=== PATIENT | female | born 1965 | race Caucasian/White ===

== ENCOUNTER 2016-05-16 11:03 | Inpatient (IN) | payer MEDICARE, MEDICAID ==
[~2016-05-16] VITALS: Ht 160 cm; Wt 57.8 kg
[~2016-05-16 11:03] MED LIST: FENT1PAT68 TD; FLUT16SP EA NOSTRIL; GABA-338 PO; LEVO75TA4 PO; METR500T PO; OMEP20CA10 PO; OXYC-541 PO; SERT50TA12 PO; TRAZ-170 PO
--- OUTSIDE RECORDS SUMMARY | 2016-05-16 11:08 | XMS REPORT | Continuity of Care Document ---
Author Author [facility] LIVE Organization [facility] LIVE Address Unknown Phone Unavailable Care Team Providers Care Electrical Tester Battery Name Role Phone HAMILTON GUZMÁN DO Primary Care Physician [phone] Insurance Providers Payer Name Policy Number Subscriber Name Relationship [facility] Community Plan [id number] Luis M Aragon 19 Self Advance Directives Directive Response Recorded Date/Time Advanced Directives Type None 08/29/13 4:00pm Ordered Resuscitation Status Full Code 06/19/13 10:41am Chief Complaint and Reason for Visit Chief Complaint SMALL BOWEL OBSTRUCTION Reason for Visit History of malignant neoplasm of colorectal region Small bowel obstruction History of malignant neoplasm of colorectal region Nonhealing surgical wound Colon cancer Small bowel obstruction Problems Medical Problems Problem Onset Date Status Abdominal Pain Epigastric Unknown Active UTI Unknown Active MEDICATION AFFECT Unknown Active UTI Unknown Active Chronic pelvic pain Unknown Active Chronic rectal pain Unknown Active UTI Unknown Active Acute confusion Unknown Active Dehydration Unknown Active Hyperthyroidism Unknown Active Urinary tract infection Unknown Active Pancreatitis Unknown Active Stomal bleeding Unknown Active UTI (lower urinary tract infection) Unknown Active Abdominal pain Unknown Active History of malignant neoplasm of colorectal region Unknown Active Small bowel obstruction Unknown Active History of malignant neoplasm of colorectal region Unknown Active Colon cancer 12/29/2013 Active Small bowel obstruction 12/29/2013 Active Surgical Problems Problem Onset Date Recorded Date/Time Status Pancreatitis Unknown 08/31/2013 2:05pm Active Constipation Unknown 08/31/2013 2:05pm Active Nonhealing surgical wound Unknown 12/27/2013 9:50am Active Medications Medication Dose Route Sig Days/Qty Instructions Order Date Discontinued Date Status Ibuprofen 200 Mg PO NEEDED 10/22/11 06/26/12 Discontinued Ciprofloxacin Hcl 500 Mg PO TWICE A DAY 12/08/11 06/26/12 Discontinued Hydrocodone Bit/Acetaminophen 1 Udtab PO NEEDED 06/26/12 Discontinued [lisinopril] 06/26/12 07/01/12 Discontinued [gabapentin] TWICE A DAY 06/26/12 07/01/12 Discontinued [prochlorperazine] 06/26/12 07/01/12 Discontinued Tramadol Hcl 50 Mg PO NEEDED 07/01/12 07/07/12 Discontinued Levofloxacin 500 Mg PO DAILY 07/01/12 07/07/12 Discontinued Lisinopril 20 Mg PO DAILY 07/01/12 07/27/12 Discontinued Metronidazole 500 Mg PO THREE TIMES A DAY TAKE FOR 14 DOSE (1ST DOSE TAKEN Wednesday07/03/12 ONE DOSE THAT DAY 07/07/12 07/27/12 Discontinued Hydrocodone Bit/Acetaminophen 1 Tab PO NEEDED 60 Qty 01/02/1304/21 Discontinued Hydrocodone Bit/Acetaminophen 1 Udtab PO EVERY 4 HOURS 04/21/1301/05 Discontinued Gabapentin 100 Mg PO TWICE A DAY 05/14/13 11/02/13 Discontinued Escitalopram Oxalate 10 Mg PO DAILY 05/14/13 08/29/13 Discontinued Ondansetron 4 Mg PO NEEDED 08/15/13 09/01/13 Discontinued Pantoprazole Sodium 20 Mg PO BEFORE BREAKFAST 08/19/13 09/01/13 Discontinued Ciprofloxacin Hcl 500 Mg PO TWICE A DAY 14 Qty 08/29/13 09/01/13 Discontinued Fentanyl 1 Patch TD Q 3 D 08/29/13 11/02/13 Discontinued Lisinopril 5 Mg PO DAILY 08/29/13 09/01/13 Discontinued Clonazepam 0.5 Tab PO TWICE A DAY take twice daily as needed 10/11/13 Active Sertraline HCl 1 Tab PO DAILY 10/18/13 Active Acetaminophen 2 Tab PO Every 6 Hours PRN PAIN 10/18/13 11/02/13 Discontinued Methimazole 5 Mg PO DAILY 10/18/13 11/02/13 Discontinued Ciprofloxacin 500 Mg PO TWICE A DAY 7 Days 10/18/13 11/02/13 Discontinued Hydrocodone/Acetaminophen 1-2 Tab PO Q4H PRN BREAKTHROUGH PAIN 30 Days 11/02/13 Active Ondansetron 4 Mg PO Q6H/0300,0900,1500,2100 PRN NAUSEA &/OR VOMITING 120 Qty 11/02/13 Active Pantoprazole Sodium 40 Mg PO DAILY 30 Qty Take 1 tablet, by mouth, 2 times a day before Breakfast and 11/02/13 Active Loperamide HCl 2 Mg PO Every 6 Hours PRN PRN ORDERS 30 Days 11/02/13 12/29/13 Discontinued Fentanyl 1 Patch TD Q3D 10 Qty 11/02/13 Active Gabapentin 300 Mg PO DAILY 11/20/13 Active Methimazole 60 Mg PO DAILY 12/19/13 Active Social History Social History Problem Response Recorded Date/Time Smoking Status Current every day smoker 08/29/2013 4:02pm When did patient START smoking? 1985 12/25/2013 11:54pm Chewing Tobacco Status No 08/29/2013 1:04pm Hx Substance Use No 12/25/2013 5:14pm Hx Alcohol Use No 12/25/2013 5:14pm Has the pt used tobacco in the last 12 months Yes 12/25/2013 11:54pm Query Response Start Date Stop Date Smoking Status Current every day smoker Hospital Discharge Instructions Instructions: Care Instructions: Reason for Hospitalization: bowel obstruction I was in the hospital because (patient own words): " I have a blocked bowel" Discharge Diet: regular Discharge Activity: Activity as Tolerated Follow Up Appointments: FOLLOW UP APPOINTMENT WITH WOUND CLINIC ON 01/02/14 AT 2:[address] NAIK Follow up appointment with Dr. Guzmán January 12, at 9:00. Follow up appointment with Dr. Jarrell January 08, at 9:30. Make appointment with Lab at [facility] for CBC with diff, CMP and Mg in one to two weeks before seeing Dr. Guzmán for follow up. Follow up appointment with Dr. Dudley with in the month. Patient Instructions: Return to care immediately if nausea, vomiting or abdominal pain No other tylenol while taking the [place] Condition at time of discharge: Good Plan of Care Discharge Date 12/29/13 3:35pm Disposition 01 DISCHARGED HOME, SELF-CARE Instructions/Education Provided DI for Small Bowel Obstruction Prescriptions See Medications Section Functional Status Query Response Date Recorded Physical Hygiene Self December 29, 2013 2:42pm Disabilities None August 29, 2013 3:16pm Devices Used Glasses December 29, 2013 2:42pm Dressing Self December 29, 2013 2:42pm Ambulation Self August 29, 2013 1:04pm Diet Self December 29, 2013 2:42pm Mental Status Alert August 29, 2013 3:16pm Disabilities None August 29, 2013 3:16pm Devices Used Glasses December 29, 2013 2:42pm Physical Hygiene Self December 29, 2013 2:42pm Dressing Self December 29, 2013 2:42pm Ambulation Self August 29, 2013 1:04pm Diet Self December 29, 2013 2:42pm Allergies, Adverse Reactions, Alerts Allergen Type Severity Reaction Status Last Updated No Known Allergies Active 10/10/13 Immunizations Name Given Type Hx Influenza Vaccination Y 11/2013 Historical Hx Pneumococcal Vaccination Y 2012 Historical Hx Influenza Vaccination Y 11/2013 Historical Vital Signs Acute Vital Signs Vital Response Date/Time Temperature (Fahrenheit) 97.3 deg F (96.8 - 99.1) Temperature (Calculated Celsius) 36.33737 degrees C (36.0 - 37.3) Temperature Source Oral Pulse Rate (adult) 65 bpm (60 - 100) Respiratory Rate 14 breaths/min (10 - 20) Height (Feet) 5 feet Height (Inches) 3.00 inches Height 5 ft 3 in Weight 125 lb Body Mass Index 22.0 kg/m^2 Results Test Source Date Result Interp. Ref. Range Comments Absolute Reticulocyte Count October 25, 2013 1:45pm 0.0382 T/MM3 N 0.0300-0.0900 Activated Partial Thromboplast Time December 26, 2013 5:57am 36.5 SEC H 24-36 Alanine Aminotransferase (ALT/SGPT) December 29, 2013 5:01am 22 U/L N 9- 52 Albumin December 29, 2013 5:01am 2.5 G/DL L 3.5-5.0 Albumin/Globulin Ratio December 29, 2013 5:01am 0.8 RATIO L 1.1-2.2 Alcohol, Quantitative August 29, 2013 6:30pm <10 MG/DL - Alkaline Phosphatase December 29, 2013 5:01am 120 U/L N 38-126 Ammonia August 15, 2013 6:50pm < 9 UMOL/L L 9-33 COMMENT DO ON BLOOD DRAWN TODAYCOMMENT * & TSH RECEPTOR ANTIBODIES * Amylase Level December 25, 2013 6:02pm 33 U/L N 30-110 Anion Gap December 29, 2013 5:01am 5 MEQ/L N 5-15 Anisocytosis October 30, 2013 4:44am 1+ - Arterial Blood Base Excess August 29, 2013 6:25pm -5.2 MMOL/L L -2.0-2.0 Arterial Blood HCO3 August 29, 2013 6:25pm 20 MEQ/L L 22-26 Arterial Blood Lactic Acid July 27, 2012 4:28pm 0.9 MMOL/L N 0.5-0.9 Arterial Blood Oxygen Saturation August 29, 2013 6:25pm 96.0 % N 95.0- 98.0 Arterial Blood Partial Pressure CO2 August 29, 2013 6:25pm 37 MMHG N 34- 45 Arterial Blood Total CO2 August 29, 2013 6:25pm 21.1 MEQ/L L 23-27 Arterial Blood pH August 29, 2013 6:25pm 7.340 L 7.350-7.450 Arterial Blood pO2 at Patient Temp August 29, 2013 6:25pm 90 MMHG N 80- 100 Aspartate Amino Transf (AST/SGOT) December 29, 2013 5:01am 10 U/L L 14- 36 BUN/Creatinine Ratio December 29, 2013 5:01am 7 RATIO N 6-26 Band Neutrophils # December 25, 2013 6:02pm 1.1 T/MM3 - Band Neutrophils % December 25, 2013 6:02pm 9.0 % H 0-6 Basophils # (Auto) December 29, 2013 5:01am 0.0 T/MM3 N 0-0.2 Basophils # (Manual) October 26, 2013 8:10pm 0.0 T/MM3 N 0-0.2 Basophils % (Manual) October 26, 2013 8:10pm 0.0 % N 0-2 Basophils (%) (Auto) December 29, 2013 5:01am 0.8 % N 0-2 Beta HCG, Quantitative December 08, 2011 8:40pm < 2.39 UIU/ML - NON- INDIVIDUALS=0 - 4.83;SAMPLES BETWEEN 4.83 - 25 SHOULD BE RE-TESTED AFTER 48 HOURS IF IS SUSPECTED; GESTATION 1-10 WEEKS: 45-256,380; 11-15 WEEKS: 11,556-265,380; 16-22 WEEKS: 27,023-111,954; 23-40 WEEKS: 24,031-101,566 Blood Smear Pathologist Review October 25, 2013 1:45pm Sent for review - Blood Urea Nitrogen December 29, 2013 5:01am 6.0 MG/DL L 7-17 C-Reactive Protein December 08, 2013 12:01pm 34.4 MG/L H 0-9 C. difficile Toxin B Gene (PCR) October 28, 2013 11:25pm Positive H - Has specimen been collected/obtained? Y CA 125 Antigen February 20, 2013 3:04pm 11.6 U/ML N 0-35 Calcium Level December 29, 2013 5:01am 8.4 MG/DL N 8.4-10.2 Calculated Osmolality December 29, 2013 5:01am 263 MOSM/KG N 261-280 Carbon Dioxide Level December 29, 2013 5:01am 28 MEQ/L N 22-30 Carcinoembryonic Antigen October 25, 2013 9:35am 2.26 UG/L DN 0-3.0 Chemistry Specimen Hemolysis December 29, 2013 5:01am < 15 0-25 0-25 : No Hemolysis.26-70: Slight Hemolysis - can falsely elevate K and Urine Protein. 71-285: Moderate Hemolysis - can falsely elevate K, Troponin I, CA 19-9, PTH, CSF GLucose, and Urine Protein, and can falsely decrease Phenytoin. 286-999: Gross Hemolysis - can falsely elevate K, Troponin I, CA 19-9, PTH, CSF Glucose, and Urine Protine, and can falsely decrease Phenytoin. Recommend specimen recollection. Chlamydia trachomatis Amplified DNA October 22, 2011 9:38pm Ref lab rpt scanned - --- 10/26/11 0723 ---CHLAMDNA previously reported as: SENT OUT Chloride Level December 29, 2013 5:01am 105 MEQ/L N 98-107 Cholesterol Level August 16, 2013 4:35am 80 MG/DL L 132-199 Cholesterol/HDL Ratio August 16, 2013 4:35am 4.0 RATIO N 0-4.0 Coagulation Factor VII October 26, 2013 9:40am 64 % L - Factor VII performed at [facility], [address], [place] [address]Vcnqzzv Director Marlena Cottrell MD Conjugated Bilirubin July 22, 2012 12:50am 0.00 MG/DL N 0.00-0.30 Cortisol AM Sample August 16, 2013 4:35am 13.9 UG/DL 1 - Before 10:00am : 4.46-22.7 ug/dL;After 5:00pm: 1.7-14.1 ug/dL Cortisol Baseline June 21, 2013 8:58am 24.6 UG/DL - COMMENT Draw prior to cotrosyn administration Cortisol Response to Stim 1 Hour June 21, 2013 9:55am 42.5 UG/DL - COMMENT Draw 60 min post cortrosyn administration Cortisol Response to Stim 1/2 Hour June 21, 2013 9:25am 33.0 UG/DL - COMMENT Draw 30 min post cortrosyn Creatine Kinase MB July 01, 2012 3:30pm < 0.2 NG/ML 0-3.4 Creatinine December 29, 2013 5:01am 0.9 MG/DL N 0.7-1.2 D-Dimer October 27, 2013 4:30am 758 NG/ML H 0-224 <224 NG/ML= PRESUMPTIVE NEGATIVE FOR PE OR DVT>224 NG/ML=ADDITIONAL EVALUATION FOR PE OR DVT RECOMMENDED Eosinophils # (Auto) December 29, 2013 5:01am 0.4 T/MM3 N 0-0.5 Eosinophils # (Manual) December 14, 2013 8:55am 0.1 T/MM3 N 0-0.5 Eosinophils % (Manual) December 14, 2013 8:55am 2.0 % N 0-4 Eosinophils (%) (Auto) December 29, 2013 5:01am 8.9 % H 0-4 Erythrocyte Sedimentation Rate November 02, 2013 4:37am 78 MM/HR H 0- 20 Ferritin August 15, 2013 6:50pm 250 NG/ML H 6-137 COMMENT DO ON BLOOD DRAWN TODAYCOMMENT * & TSH RECEPTOR ANTIBODIES * Fibrin Degradation Products October 27, 2013 4:30am Negative UG/ML - Ordering r/o VTE No Fibrinogen October 27, 2013 4:30am 461 MG/DL H 135-357 Ordering r/o VTE No Free Thyroxine August 15, 2013 6:50pm 3.61 NG/DL H 0.78-2.19 COMMENT DO ON BLOOD DRAWN TODAYCOMMENT * & TSH RECEPTOR ANTIBODIES * Free Triiodothyronine August 15, 2013 6:50pm 6.84 PG/ML H 2.77-5.27 COMMENT DO ON BLOOD DRAWN TODAYCOMMENT * & TSH RECEPTOR ANTIBODIES * Globulin December 29, 2013 5:01am 3.2 G/DL N 2.4-3.6 Glomerular Filtration Rate Calc December 29, 2013 5:01am 67 - Glucometer June 20, 2013 6:29pm 108 mg/dL N 65-110 Glucose Level December 29, 2013 5:01am 75 MG/DL N 65-110 HDL Cholesterol Direct August 16, 2013 4:35am 20 MG/DL L 40-60 Haptoglobin October 25, 2013 1:45pm 329 mg/dL H - Haptoglobin performed at [facility], [address], [place], [place] [address]Crzbkrp Director Marlena Cottrell MD Hematocrit December 29, 2013 5:01am 33.4 % L 36-46 Hemoglobin December 29, 2013 5:01am 10.4 GM/DL L 12-16 Hemoglobin A1c June 22, 2013 4:48am 4.9 % L 6-7 <6.0 NON-DIABETIC RANGE6.0-7.0 ADA THERAPEUTIC RANGE >7.0 ACTION SUGGESTED Hypochromasia October 26, 2013 4:52am 1+ - Icterus Index December 29, 2013 5:01am < 2 0-7 Immature Granulocyte # (Auto) December 29, 2013 5:01am 0.00 T/MM3 N 0.00 -0.03 Immature Granulocyte % (Auto) December 29, 2013 5:01am 0.0 % N 0.0-0.5 Immature Reticulocyte Fraction October 25, 2013 1:45pm 12.7 % N 3.3- 14.5 Immunoglobulin G August 01, 2012 4:58am 860.82 MG/DL N 700-1600 COMMENT do on blood already drawn Iron Level August 15, 2013 6:50pm 15 UG/DL L 37-170 COMMENT DO ON BLOOD DRAWN TODAYCOMMENT * & TSH RECEPTOR ANTIBODIES * LDL Cholesterol, Calculated August 16, 2013 4:35am 45.2 L 66-159 Lab Scanned Report December 25, 2013 2:12pm LAB TEST FORM REQUEST [id number] - Lactate Dehydrogenase December 25, 2013 9:30am 292 U/L L 313-618 Large Platelets April 21, 2013 9:00am Few - Lipase December 25, 2013 6:02pm 28 U/L N 23-300 Lymphocytes # (Auto) December 29, 2013 5:01am 1.3 T/MM3 N 1-4.8 Lymphocytes # (Manual) December 25, 2013 6:02pm 0.5 T/MM3 L 1-4.8 Lymphocytes % (Manual) December 25, 2013 6:02pm 4.0 % L 23-45 Lymphocytes (%) (Auto) December 29, 2013 5:01am 26.8 % N 23-45 Magnesium Level December 29, 2013 5:01am 1.7 MG/DL N 1.6-2.3 Mean Corpuscular Hemoglobin December 29, 2013 5:01am 29.2 UUG N 26-34 Mean Corpuscular Hemoglobin Concent December 29, 2013 5:01am 31.1 GM/DL N 31-37 Mean Corpuscular Volume December 29, 2013 5:01am 93.8 UM3 N 80-100 Mean Platelet Volume December 29, 2013 5:01am 10.4 UM3 N 9.4-12.4 Monocytes # (Auto) December 29, 2013 5:01am 0.5 T/MM3 N 0-0.8 Monocytes # (Manual) December 14, 2013 8:55am 0.4 T/MM3 N 0-0.8 Monocytes % (Manual) December 14, 2013 8:55am 5.0 % N 0-9.0 Monocytes (%) (Auto) December 29, 2013 5:01am 10.4 % H 0-9.0 Neutrophils # (Auto) December 29, 2013 5:01am 2.6 T/MM3 N 1.8-7.7 Neutrophils # (Manual) December 25, 2013 6:02pm 10.7 T/MM3 H 1.8-7.7 Neutrophils % (Manual) December 25, 2013 6:02pm 87.0 % H 33-66 Neutrophils (%) (Auto) December 29, 2013 5:01am 53.1 % N 33-66 Nucleated Red Blood Cells August 17, 2013 6:04am 1 - Ovalocytes August 17, 2013 6:04am 1+ - Oxygen Delivery Method (LAB) August 29, 2013 6:25pm Room air - Percent Iron Saturation August 15, 2013 6:50pm 10 % N 9-55 COMMENT DO ON BLOOD DRAWN TODAYCOMMENT * & TSH RECEPTOR ANTIBODIES * Percent Reticulocyte Count October 25, 2013 1:45pm 1.8 % H 0.6-1.7 Phosphorus Level December 29, 2013 5:01am 3.1 MG/DL N 2.5-4.5 Platelet Count December 29, 2013 5:01am 321 T/MM3 N 130-400 Platelet Evaluation (Diff) May 31, 2013 8:30am Few - Poikilocytosis October 26, 2013 4:52am 1+ - Potassium Level December 29, 2013 5:01am 4.1 MEQ/L DN 3.6-5 Procalcitonin December 25, 2013 9:56pm 0.07 NG/ML - PCT </=0.5 ng/mL - sepsis not likely;PCT >0.5 and </=2 ng/mL - sepsis possible; PCT >2 ng/mL - sepsis likely; PCT >/=10 ng/mL - systemic inflammatory response - sepsis or septic shock highly indicated. Prothromb Time International Ratio December 26, 2013 5:57am 1.12 H 0.81- 1.09 THERAPUTIC RANGE=2.00-3.00 FOR ANTI-THROMBOSIS THERAPUTIC RANGE=2.50- 3.50 FOR IMPLANTED VALVE RDW Standard Deviation December 29, 2013 5:01am 54.4 FL H 36.9-50.2 Random Cortisol August 15, 2013 6:50pm 13.2 UG/DL - Before 10:00am: 4.46-22.7 ug/dL;After 5:00pm: 1.7-14.1 ug/dL Reactive Lymphocytes # October 30, 2013 4:44am 0.6 T/MM3 H 0-0 Reactive Lymphocytes % October 30, 2013 4:44am 5.0 % H 0-0 Red Blood Count December 29, 2013 5:01am 3.56 M/MM3 L 4.00-5.20 Reticulocyte Hgb Content (CHr) October 25, 2013 1:45pm 23.5 PG L 30.8- 36.6 Schistocytes May 31, 2013 8:30am 1+ - Sodium Level December 29, 2013 5:01am 138 MEQ/L N 134-144 Stone Constituent 1 December 19, 2013 10:28am See below - 90% Calcium phosphate (apatite) Stone Constituent 2 December 19, 2013 10:28am See below - 10% Calcium carbonateTest Performed by: [address] [id number] Body Technician/Painter: Lonny Franz M.D. Stone Analysis performed at [facility], [address] [place] [address] Environmental Science Program Director Bob Cottrell MD Stone Source December 19, 2013 10:28am Kidney - Corrected result; previously reported as kidney on 12/19/13 at 10:56 by Stone Weight October 31, 2013 8:30am 0.039 g - COMMENT BLADDER STONE Stool Occult Blood October 25, 2013 3:00pm Negative - Has specimen been collected/obtained? YCOMMENT x3 specimans, call if positive Stool for White Cells October 25, 2013 3:00pm Positive - Has specimen been collected/obtained? Y Tear Drop Cells May 10, 2013 8:50am 1+ - Thyroglobulin Antibody Screen August 15, 2013 6:50pm <3 IU/mL - Thyroglobulin Ab screen performed at [facility], [address] [place] [address] Environmental Science Program Director Marlena Cottrell MD Thyroid Stimulating Hormone (TSH) December 26, 2013 5:57am 2.05 MIU/L DN 0.47-4.68 Thyroperoxidase Antibody August 15, 2013 11:10pm <3 IU/mL - Thyroperoxidase Ab (TPO) performed at [facility], [address] [place] [address] Environmental Science Program Director Marlena Cottrell MD Thyroxine (T4) August 15, 2013 6:50pm 10.9 ug/dL - Thyroxine (T4) performed at [facility], [address] [place] [address] Environmental Science Program Director Marlena Cottrell MD Total Bilirubin December 29, 2013 5:01am 0.20 MG/DL N 0.20-1.30 Total Creatine Kinase July 01, 2012 3:30pm < 20 U/L L 30-135 Total Iron Binding Capacity August 15, 2013 6:50pm 148 UG/DL L 261-497 COMMENT DO ON BLOOD DRAWN TODAYCOMMENT * & TSH RECEPTOR ANTIBODIES * Total Protein December 29, 2013 5:01am 5.7 G/DL L 6.3-8.2 Triglycerides Level August 29, 2013 6:30pm 143 MG/DL H 35-135 Triiodothyonine (T3) (JOSE MIGUEL) August 15, 2013 6:50pm 92 ng/dL - T3 Total performed at [facility], [address], [place] [address]Medical Director Marlena Cottrell MD Troponin I October 25, 2013 1:45pm < 0.012 ng/ml 0-0.12 Turbidity December 29, 2013 5:01am < 20 0-20 Unconjugated Bilirubin July 22, 2012 12:50am 0.10 MG/DL N 0.00-1.10 Urine Amorphous Urates November 30, 2011 3:00pm Many - Has specimen been collected/obtained? Y Urine Bacteria December 25, 2013 6:25pm 1+ H - Has specimen been collected/obtained? Y Urine Bilirubin December 25, 2013 6:25pm Negative - Has specimen been collected/obtained? Y Urine Blood December 25, 2013 6:25pm 1+ H - Has specimen been collected /obtained? Y Urine Collection Type December 25, 2013 6:25pm Voided-not cc-midstr - Has specimen been collected/obtained? Y Urine Color December 25, 2013 6:25pm Yellow - Has specimen been collected/obtained? Y Urine Culture Indicated December 08, 2013 12:02pm Cult reflexed &setup - Urine Eosinophils October 30, 2013 1:51pm 0 % - Eosinophil Count, Urine performed at [facility], [facility] [place] [address] Environmental Science Program Director Marlena Cottrell MD Urine Glucose (UA) December 25, 2013 6:25pm Negative - Has specimen been collected/obtained? Y Urine Ketones December 25, 2013 6:25pm Negative - Has specimen been collected/obtained? Y Urine Leukocyte Esterase December 25, 2013 6:25pm 2+ H - Has specimen been collected/obtained? Y Urine Nitrite December 25, 2013 6:25pm Negative - Has specimen been collected/obtained? Y Urine Osmolality October 30, 2013 1:51pm 366 mOsm/kg - Osmolality, Urine performed at [facility], [address] [place] [address] Environmental Science Program Director Marlena Cottrell MD Urine Protein December 25, 2013 6:25pm Negative - Has specimen been collected/obtained? Y Urine RBC December 25, 2013 6:25pm 1-3 /HPF - Has specimen been collected/obtained? Y Urine Random Creatinine October 30, 2013 1:51pm 19.7 MG/DL - Has specimen been collected/obtained? Y Urine Random Sodium October 30, 2013 1:51pm 166 MEQ/L H 30-90 Has specimen been collected/obtained? Y Urine Specific [place] December 25, 2013 6:25pm 1.015 - Has specimen been collected/obtained? Y Urine Squamous Epithelial Cells December 08, 2013 12:02pm 0-5 - Urine Transitional Epithelial Cells August 29, 2013 6:30am 3-5 /HPF - Has specimen been collected/obtained? Y Urine Turbidity December 25, 2013 6:25pm Clear - Has specimen been collected/obtained? Y Urine Urobilinogen December 25, 2013 6:25pm 0.2 EU/DL - Has specimen been collected/obtained? Y Urine WBC December 25, 2013 6:25pm 5-10 /HPF H - Has specimen been collected/obtained? Y Urine WBC Clumps August 29, 2013 6:30am None seen - Has specimen been collected/obtained? Y Urine Yeast October 30, 2013 1:51pm 1+ H - COMMENT please do urine microscopy.Has specimen been collected/obtained? Y Urine pH December 25, 2013 6:25pm 6.5 - Has specimen been collected/ obtained? Y VLDL Cholesterol August 16, 2013 4:35am 14.8 MG/DL N 0-28 Vancomycin Level Trough October 31, 2013 8:51am 11.71 UG/ML L 15-20 Venous Blood Lactate December 27, 2013 5:38am 1.0 MMOL/L N 0.6-2.2 White Blood Count December 29, 2013 5:01am 4.8 T/MM3 N 4.5-11.0 Blood Culture Catheter/Port Blood December 25, 2013 11:10pm NO GROWTH AFTER 72 HOURS Gram Stain Drainage-Surgical Wound December 08, 2011 9:00pm Gram Stain Rectum November 22, 2013 12:25pm Gram Stain Cervix October 22, 2011 9:25pm LORAINE Preparation Other December 05, 2013 11:30am Ova and Parasites Stool October 25, 2013 3:00pm Gram Stain Bladder October 31, 2013 8:04am Urine Culture Urine, Clean Catch-Midstream December 26, 2013 2:41pm Gram Positive Organism Gram Stain Catheter (Line) Site December 03, 2011 5:55pm Name: LUIS M ARAGON Unit #: [id number] : [id number] Sex: F Loc / Svc: MED DOS: 12/25/13 Signed Report #: [id number] DIAGNOSTIC IMAGING REPORT TYPE OF EXAM: CHEST 1 VIEW Dictated By: SASCHA BRENNER MD INDICATION: ITS.REASON: placement of NG tube COMPARISON: none. CHEST 1 VIEW: There is a right port catheter. Evidence of an NG tube. The tip is difficult to image, but appears to be near the GE junction. Normal heart size. No evidence of lung infiltrate. IMPRESSION: NG tip appears to be at the GE junction. . Procedures Procedure Status Date Provider(s) RPR S/N/AX/GEN/TRNK 2.5CM/< completed 10/10/13 DUSTIN MILES MD BLOOD TRANSFUSION SERVICE completed 10/25/13 HAMILTON GUZMÁN DO CYSTOSCOPY AND TREATMENT completed 10/25/13 REYNA PATE MD CYSTOSCOPY & URETER CATHETER completed 10/25/13 REYNA PATE MD CYSTOSCOPY AND TREATMENT completed 10/25/13 REYNA PATE MD CYSTOSCOPY AND TREATMENT completed 12/05/13 REYNA PATE MD CYSTOSCOPY AND TREATMENT completed 12/05/13 REYNA PATE MD CYSTO/URETERO STRICTURE TX completed 12/05/13 REYNA PATE MD CYSTOSCOPY AND TREATMENT completed 12/19/13 REYNA PATE MD CYSTOURETERO W/STONE REMOVE completed 12/19/13 REYNA PATE MD Encounters Encounter Location Date/Time Discharged Inpatient [facility] 12/25/13 9:56pm Registered [facility] 12/25/13 9:39am Registered [facility] 12/12/13 1:27pm Registered [facility] 12/08/13 12:20pm Registered [facility] 12/08/13 11:48am Registered [facility] 12/06/13 10:08am Registered [facility] 12/04/13 11:20am Registered [facility] 12/01/13 9:33am Registered [facility] 11/28/13 1:25pm Registered [facility] 11/23/13 8:34am Registered [facility] 11/22/13 12:39pm Registered [facility] 11/22/13 12:24pm Registered Clinic [facility] 11/17/13 10:26am Registered Clinic [facility] 11/15/13 1:39pm Discharged Recurring [facility] 11/14/13 8:42am Registered Clinic [facility] 11/08/13 4:28pm Registered Clinic [facility] 11/08/13 9:01am Registered Clinic [facility] 11/07/13 10:27am Discharged Inpatient [facility] 10/25/13 12:11pm Departed Emergency Room [facility] 10/18/13 11:25am Departed Emergency Room [facility] 10/10/13 8:36pm Recent Diagnosis History of malignant neoplasm of colorectal region Small bowel obstruction History of malignant neoplasm of colorectal region Colon cancer Small bowel obstruction
--- OUTSIDE RECORDS SUMMARY | 2016-05-16 11:08 | XMS REPORT | Continuity of Care Document ---
Author Author [facility] Organization [facility] Address Unknown Phone Unavailable Care Team Providers Care Mash Grinder Name Role Phone HAMILTON RECINOS DO Primary Care Physician [phone] Insurance Providers Payer Name Policy Number Subscriber Name Relationship [employer] [facility] [employer] Plan [id number] Luis M Aragon 19 Self Advance Directives Directive Response Recorded Date/Time Advanced Directives Type None 08/15/13 10:08pm Ordered Resuscitation Status Full Code 06/19/13 10:41am Problems Medical Problems Problem Onset Date Status Abdominal Pain Epigastric Unknown Active UTI Unknown Active MEDICATION AFFECT Unknown Active UTI Unknown Active Chronic pelvic pain Unknown Active Chronic rectal pain Unknown Active UTI Unknown Active Acute confusion Unknown Active Dehydration Unknown Active Hyperthyroidism Unknown Active Medications Medication Dose Route Sig Days/Qty [...] Bit/Acetaminophen 1 Udtab PO EVERY 4 HOURS 04/21/13 Active Fentanyl 1 Patch TD Q72H 04/21/13 Active Gabapentin 100 Mg PO TWICE A DAY 05/14/13 Active Escitalopram Oxalate 10 Mg PO DAILY 05/14/13 Active Fentanyl 1 Patch TD Q3D 08/15/13 Active Cyclobenzaprine Hcl 10 Mg PO NEEDED 08/15/13 Active Ondansetron 4 Mg PO NEEDED 08/15/13 Active Pantoprazole Sodium 20 Mg PO BEFORE BREAKFAST 08/19/13 Active Social History Social History Problem Response Recorded Date/Time Smoking Status Former smoker 08/15/2013 10:09pm Chewing Tobacco Status No 08/15/2013 7:12pm Hx Substance Use No 08/15/2013 7:12pm Hx Alcohol Use No 08/15/2013 7:12pm Has the pt used tobacco in the last 12 months Yes 08/15/2013 10:09pm Query Response Start Date Stop Date Smoking Status Current every day smoker Hospital Discharge Instructions Instructions: Care Instructions: Reason for Hospitalization: DEHYDRATION/ACUTE CONFUSION I was in the hospital because (patient own words): I WAS SICK Discharge Diet: REGULAR Discharge Activity: ACTIVITY TOLERATED Follow Up Appointments: FOLLOW UP APPOINTMENT WITH DR. RECINOS ON WEDNESDAY [phone] MAR IN 2 MONTHS WITH TSH DRAWN THE WEEK BEFORE AND SENT TO HIM FOLLOW UP APPOINTMENT WITH DR. ROJAS WITH IN THE NEXT WEEK. FOLLOW APPOINTMENT WITH DR. PATE THIS NEXT WEEK WELL. Patient Instructions: CALL OR COME TO EMERGENCY DEPARTMENT IF CONFUSED OR SYMPTOMS OCCUR OR HALLUCINATIONS. CALL IF DIARRHEA OR URINARY SYMPTOMS RETURN. Notify Physician If: ANY SYMPTOMS RETURN Condition at time of discharge: Good Care Plan Discharge Patient: Goal: Pain is contolled Patient Instructions: see patient instructions Discharge Patient: Goal: Understand discharge plan Patient Instructions: see patient instructions Room Condition at time of discharge: Good Care Plan Discharge Patient: Goal: Understand discharge plan Patient Instructions: see patient instructions Problem: see problem list Plan of Care Discharge Date 08/19/13 12:16pm Instructions/Education Provided DI for Altered Mental Status Prescriptions See Medications Section Functional Status Query Response Date Recorded Physical Hygiene Self August 19, 2013 11:34am Disabilities None August 19, 2013 11:34am Ambulation Self August 19, 2013 11:34am Mental Status Alert Oriented August 19, 2013 11:34am Disabilities None August 19, 2013 11:34am Physical Hygiene Self August 19, 2013 11:34am Ambulation Self August 19, 2013 11:34am Allergies, Adverse Reactions, Alerts Allergen Type Severity Reaction Status Last Updated No Known Allergies Active 04/21/13 Immunizations Name Given Type Hx Influenza Vaccination Y Jan Historical Hx Pneumococcal Vaccination Y Jan Historical Hx Influenza Vaccination Y Jan Historical Vital Signs Acute Vital Signs Vital Response Date/Time Temperature (Fahrenheit) 97.8 deg F (96.8 - 99.1) Temperature (Calculated Celsius) 36.03824 degrees C (36.0 - 37.3) Temperature Source Oral Pulse Rate (adult) 84 bpm (60 - 100) Respiratory Rate 16 breaths/min (10 - 20) Results Test Source Date Result Interp. Ref. Range Comments Absolute Reticulocyte Count August 15, 2013 6:50pm 0.0229 T/MM3 L 0.0300- 0.0900 Activated Partial Thromboplast Time August 15, 2013 6:50pm 41.1 SEC H 24- 36 Alanine Aminotransferase (ALT/SGPT) August 23, 2013 8:28am 20 U/L N 9-52 Albumin August 23, 2013 8:28am 2.8 G/DL L 3.5-5.0 Albumin/Globulin Ratio August 23, 2013 8:28am 0.7 RATIO L 1.1-2.2 Alkaline Phosphatase August 23, 2013 8:28am 254 U/L H 38-126 Ammonia August 15, 2013 6:50pm < 9 UMOL/L L 9-33 COMMENT DO ON BLOOD DRAWN TODAYCOMMENT * & TSH RECEPTOR ANTIBODIES * Amylase Level November 08, 2012 6:50pm 89 U/L N 30-110 Anion Gap August 23, 2013 8:28am 10 MEQ/L N 5-15 Anisocytosis August 21, 2013 8:50am 1+ - Aspartate Amino Transf (AST/SGOT) August 23, 2013 8:28am 18 U/L N 14-36 BUN/Creatinine Ratio August 23, 2013 8:28am 13 RATIO N 6-26 Band Neutrophils # August 21, 2013 8:50am 0.1 T/MM3 - Band Neutrophils % August 21, 2013 8:50am 1.0 % N 0-6 Basophils # (Auto) August 23, 2013 8:28am 0.0 T/MM3 N 0-0.2 Basophils # (Manual) August 15, 2013 6:50pm 0.0 T/MM3 N 0-0.2 Basophils % (Manual) August 15, 2013 6:50pm 0.0 % N 0-2 Basophils (%) (Auto) August 23, 2013 8:28am 0.2 % N 0-2 Blood Smear Pathologist Review August 15, 2013 6:50pm Sent for review - COMMENT * AND THYROID PERAXIDOSE ANTIBODIES * Blood Urea Nitrogen August 23, 2013 8:28am 10.0 MG/DL N 7-17 C-Reactive Protein June 12, 2013 10:45am 9.9 MG/L H 0-9 CA 125 Antigen February 20, 2013 3:04pm 11.6 U/ML N 0-35 Calcium Level August 23, 2013 8:28am 8.9 MG/DL N 8.4-10.2 Calculated Osmolality August 23, 2013 8:28am 274 MOSM/KG N 261-280 Carbon Dioxide Level August 23, 2013 8:28am 27 MEQ/L N 22-30 Carcinoembryonic Antigen March 10, 2013 8:25am 5.90 UG/L H 0-3.0 Chloride Level August 23, 2013 8:28am 106 MEQ/L N 98-107 Cholesterol Level August 16, 2013 4:35am 80 MG/DL L 132-199 Cholesterol/HDL Ratio August 16, 2013 4:35am 4.0 RATIO N 0-4.0 Conjugated Bilirubin July 22, 2012 12:50am 0.00 [...] 2012 3:30pm < 0.2 NG/ML 0-3.4 Creatinine August 23, 2013 8:28am 0.8 MG/DL N 0.7-1.2 Eosinophils # (Auto) August 23, 2013 8:28am 0.2 T/MM3 N 0-0.5 Eosinophils # (Manual) August 21, 2013 8:50am 0.1 T/MM3 N 0-0.5 Eosinophils % (Manual) August 21, 2013 8:50am 1.0 % N 0-4 Eosinophils (%) (Auto) August 23, 2013 8:28am 2.7 % N 0-4 Erythrocyte Sedimentation Rate June 12, 2013 10:45am 64 MM/HR H 0-20 Ferritin August 15, 2013 6:50pm 250 NG/ML H 6-137 COMMENT DO ON BLOOD DRAWN TODAYCOMMENT * & TSH RECEPTOR ANTIBODIES * Free Thyroxine August 15, 2013 6:50pm 3.61 NG/DL H 0.78-2.19 COMMENT DO ON BLOOD DRAWN TODAYCOMMENT * & TSH RECEPTOR ANTIBODIES * Free Triiodothyronine August 15, 2013 6:50pm 6.84 PG/ML H 2.77-5.27 COMMENT DO ON BLOOD DRAWN TODAYCOMMENT * & TSH RECEPTOR ANTIBODIES * Globulin August 23, 2013 8:28am 4.0 G/DL H 2.4-3.6 Glucose Level August 23, 2013 8:28am 107 MG/DL N 65-110 Haptoglobin August 15, 2013 6:50pm 296 mg/dL H - Haptoglobin performed at [facility], [address] [facility], [place] [address] Director Marlena Cottrell MD Hematocrit August 23, 2013 8:28am 36.1 % N 36-46 Hemoglobin August 23, 2013 8:28am 11.6 GM/DL L 12-16 Hemoglobin A1c June 22, 2013 4:48am 4.9 % L 6-7 <6.0 NON-DIABETIC RANGE6.0-7.0 ADA THERAPEUTIC RANGE >7.0 ACTION SUGGESTED Human Chorionic Gonadotropin, Qual January 03, 2013 11:00am Negative - Hypochromasia August 21, 2013 8:50am 1+ - Immature Reticulocyte Fraction August 15, 2013 6:50pm 12.6 % N 3.3-14.5 Immunoglobulin G August 01, 2012 4:58am 860.82 MG/DL N 700-1600 COMMENT do on blood already drawn Iron Level August 15, 2013 6:50pm 15 UG/DL L 37-170 COMMENT DO ON BLOOD DRAWN TODAYCOMMENT * & TSH RECEPTOR ANTIBODIES * LDL Cholesterol, Calculated August 16, 2013 4:35am 45.2 L 66-159 Lactate Dehydrogenase August 23, 2013 8:28am 265 U/L L 313-618 Large Platelets April 21, 2013 9:00am Few - Lipase April 01, 2013 7:51pm 127 U/L N 23-300 Lymphocytes # (Auto) August 23, 2013 8:28am 0.7 T/MM3 L 1-4.8 Lymphocytes # (Manual) August 21, 2013 8:50am 1.1 T/MM3 N 1-4.8 Lymphocytes % (Manual) August 21, 2013 8:50am 18.0 % L 23-45 Lymphocytes (%) (Auto) August 23, 2013 8:28am 11.0 % L 23-45 Magnesium Level August 23, 2013 8:28am 1.3 MG/DL L 1.6-2.3 Mean Corpuscular Hemoglobin August 23, 2013 8:28am 28.4 UUG N 26-34 Mean Corpuscular Hemoglobin Concent August 23, 2013 8:28am 32.1 GM/DL N 31 -37 Mean Corpuscular Volume August 23, 2013 8:28am 88.5 UM3 N 80-100 Mean Platelet Volume August 23, 2013 8:28am 9.4 UM3 N 9.4-12.4 Monocytes # (Auto) August 23, 2013 8:28am 0.5 T/MM3 N 0-0.8 Monocytes # (Manual) August 21, 2013 8:50am 0.4 T/MM3 N 0-0.8 Monocytes % (Manual) August 21, 2013 8:50am 6.0 % N 0-9.0 Monocytes (%) (Auto) August 23, 2013 8:28am 7.0 % N 0-9.0 Neutrophils # (Auto) August 23, 2013 8:28am 5.2 T/MM3 N 1.8-7.7 Neutrophils # (Manual) August 21, 2013 8:50am 4.4 T/MM3 N 1.8-7.7 Neutrophils % (Manual) August 21, 2013 8:50am 74.0 % H 33-66 Neutrophils (%) (Auto) August 23, 2013 8:28am 78.9 % H 33-66 Nucleated Red Blood Cells August 17, 2013 6:04am 1 - Ovalocytes August 17, 2013 6:04am 1+ - Percent Iron Saturation August 15, 2013 6:50pm 10 % N 9-55 COMMENT DO ON BLOOD DRAWN TODAYCOMMENT * & TSH RECEPTOR ANTIBODIES * Percent Reticulocyte Count August 15, 2013 6:50pm 0.9 % N 0.6-1.7 Phosphorus Level June 21, 2013 4:35am 4.1 MG/DL N 2.5-4.5 Platelet Count August 23, 2013 8:28am 447 T/MM3 H 130-400 Poikilocytosis August 17, 2013 6:04am 1+ - Potassium Level August 23, 2013 8:28am 3.6 MEQ/L N 3.6-5 Prothromb Time International Ratio August 15, 2013 6:50pm 1.66 H 0.81- 1.09 THERAPUTIC RANGE=2.00-3.00 FOR ANTI-THROMBOSIS THERAPUTIC RANGE=2.50- 3.50 FOR IMPLANTED VALVE RDW Standard Deviation August 23, 2013 8:28am 51.1 FL H 36.9-50.2 Random Cortisol August 15, 2013 6:50pm 13.2 UG/DL - Before 10:00am: 4.46-22.7 ug/dL;After 5:00pm: 1.7-14.1 ug/dL Red Blood Count August 23, 2013 8:28am 4.08 M/MM3 N 4.00-5.20 Reticulocyte Hgb Content (CHr) August 15, 2013 6:50pm 32.0 PG N 30.8-36.6 Schistocytes May 31, 2013 8:30am 1+ - Sodium Level August 23, 2013 8:28am 143 MEQ/L N 134-144 Stool Occult Blood August 18, 2013 6:30am Negative - Has specimen been collected/obtained? YCOMMENT #3 OF 3 Stool for White Cells August 21, 2013 12:55pm Negative - Tear Drop Cells May 10, 2013 8:50am 1+ - Thyroid Stimulating Hormone (TSH) August 15, 2013 6:50pm < 0.02 MIU/L L 0.47-4.68 COMMENT DO ON BLOOD DRAWN TODAYCOMMENT * & TSH RECEPTOR ANTIBODIES * Thyroxine (T4) August 15, 2013 6:50pm 10.9 ug/dL - Thyroxine (T4) performed at [facility], [facility] [place] [address] Aircraft Maintenance Manager Marlena Cottrell MD Total Bilirubin August 23, 2013 8:28am 0.10 MG/DL L 0.20-1.30 Total Creatine Kinase July 01, 2012 3:30pm < 20 U/L L 30-135 Total Iron Binding Capacity August 15, 2013 6:50pm 148 UG/DL L 261-497 COMMENT DO ON BLOOD DRAWN TODAYCOMMENT * & TSH RECEPTOR ANTIBODIES * Total Protein August 23, 2013 8:28am 6.8 G/DL N 6.3-8.2 Triglycerides Level August 16, 2013 4:35am 74 MG/DL N 35-135 Troponin I August 15, 2013 6:50pm < 0.012 ng/ml 0-0.12 Unconjugated Bilirubin July 22, 2012 12:50am 0.10 MG/DL N 0.00-1.10 Urine Amorphous Urates November 30, 2011 3:00pm Many - Has specimen been collected/obtained? Y Urine Bacteria August 21, 2013 12:52pm 1+ H - Urine Bilirubin August 21, 2013 12:52pm Negative - Urine Blood August 21, 2013 12:52pm 3+ H - Urine Collection Type August 21, 2013 12:52pm Voided-not cc-midstr - Urine Color August 21, 2013 12:52pm Yellow - Urine Culture Indicated August 15, 2013 8:00pm Cult reflexed &setup - Has specimen been collected/obtained? Y Urine Glucose (UA) August 21, 2013 12:52pm Negative - Urine Ketones August 21, 2013 12:52pm Negative - Urine Leukocyte Esterase August 21, 2013 12:52pm 3+ H - Urine Nitrite August 21, 2013 12:52pm Negative - Urine Osmolality August 15, 2013 8:00pm 114 mOsm/kg - Osmolality, Urine performed at [facility], [address] [place] [address] Aircraft Maintenance Manager Marlena Cottrell MD Urine Protein August 21, 2013 12:52pm 2+ H - Urine RBC August 21, 2013 12:52pm 50-200 /HPF H - Urine Random Creatinine August 15, 2013 8:00pm 20.9 MG/DL - Has specimen been collected/obtained? Y Urine Random Sodium August 15, 2013 8:00pm 18 MEQ/L L 30-90 Has specimen been collected/obtained? Y Urine Specific [place] August 21, 2013 12:52pm 1.025 - Urine Squamous Epithelial Cells August 21, 2013 12:52pm 0-5 - Urine Turbidity August 21, 2013 12:52pm Sl cloudy - Urine Urobilinogen August 21, 2013 12:52pm 0.2 EU/DL - Urine WBC August 21, 2013 12:52pm 50-200 /HPF H - Urine WBC Clumps June 19, 2013 12:10pm Few - Has specimen been collected/obtained? Y Urine Yeast June 19, 2013 12:10pm 1+ H - Has specimen been collected/ obtained? Y Urine pH August 21, 2013 12:52pm 6.0 - VLDL Cholesterol August 16, 2013 4:35am 14.8 MG/DL N 0-28 Vancomycin Level Trough July 03, 2012 8:45am 6.95 UG/ML L 15-20 COMMENT PRIOR TO VANCO DOSE SCHEDULED FOR 0900 White Blood Count August 23, 2013 8:28am 6.6 T/MM3 N 4.5-11.0 Chemistry Specimen Hemolysis August 23, 2013 8:28am < 15 0-25 0-25: No Hemolysis.26-70: Slight Hemolysis - can falsely elevate K and Urine Protein. 71-285: Moderate Hemolysis - can falsely elevate K, Troponin I, CA 19-9, PTH, CSF GLucose, and Urine Protein, and can falsely decrease Phenytoin. 286-999: Gross Hemolysis - can falsely elevate K, Troponin I, CA 19-9, PTH, CSF Glucose, and Urine Protine, and can falsely decrease Phenytoin. Recommend specimen recollection. Glucometer June 20, 2013 6:29pm 108 mg/dL N 65-110 Lab Scanned Report August 23, 2013 10:13am LAB TEST FORM REQUEST [id number] - Chlamydia trachomatis Amplified DNA October 22, 2011 9:38pm Ref lab rpt scanned - --- 10/26/11 0723 ---CHLAMDNA previously reported as: SENT OUT HDL Cholesterol Direct August 16, 2013 4:35am 20 MG/DL L 40-60 Platelet Evaluation (Diff) May 31, 2013 8:30am Few - Turbidity August 23, 2013 8:28am < 20 0-20 Reactive Lymphocytes % April 21, 2013 9:00am 3.0 % H 0-0 Glomerular Filtration Rate Calc August 23, 2013 8:28am 77 - Thyroperoxidase Antibody August 15, 2013 11:10pm <3 IU/mL - Thyroperoxidase Ab (TPO) performed at [facility], [address] [place] [address] Aircraft Maintenance Manager Marlena Cottrell MD Reactive Lymphocytes # April 21, 2013 9:00am 0.2 T/MM3 H 0-0 Thyroglobulin Antibody Screen August 15, 2013 6:50pm <3 IU/mL - Thyroglobulin Ab screen performed at [facility], [address] [place] [address] Aircraft Maintenance Manager Marlena Cottrell MD Immature Granulocyte # (Auto) August 23, 2013 8:28am 0.01 T/MM3 N 0.00- 0.03 Immature Granulocyte % (Auto) August 23, 2013 8:28am 0.2 % N 0.0-0.5 Venous Blood Lactate June 19, 2013 11:40am 1.5 MMOL/L N 0.6-2.2 Beta HCG, Quantitative December 08, 2011 8:40pm < 2.39 UIU/ML - NON- INDIVIDUALS=0 - 4.83;SAMPLES BETWEEN 4.83 - 25 SHOULD BE RE-TESTED AFTER 48 HOURS IF IS SUSPECTED; GESTATION 1-10 WEEKS: 45-256,380; 11-15 WEEKS: 11,556-265,380; 16-22 WEEKS: 27,023-111,954; 23-40 WEEKS: 24,031-101,566 Icterus Index August 23, 2013 8:28am < 2 0-7 Arterial Blood Lactic Acid July 27, 2012 4:28pm 0.9 MMOL/L N 0.5-0.9 Triiodothyonine (T3) (JOSE MIGUEL) August 15, 2013 6:50pm 92 ng/dL - T3 Total performed at [facility], [address] [place], [place] [address]Medical Director Marlena Cottrell MD C. difficile Toxin B Gene (PCR) August 21, 2013 12:55pm Negative - If Toxin A is clinically indicated, treat accordingly. Blood Culture Blood August 15, 2013 11:10pm NO GROWTH AFTER 5 DAYS Gram Stain Drainage-Surgical Wound December 08, 2011 9:00pm Stool Culture Stool June 19, 2013 11:53am Gram Stain Cervix October 22, 2011 9:25pm Viral Culture Rectal/Vaginal July 26, 2013 10:00am Helicobacter pylori Rapid Urease Gastric Biopsy July 28, 2012 11:03am Urine Culture Urine, Voided-Not Cc-Midstream August 21, 2013 12:52pm YEAST Gram Stain Catheter (Line) Site December 03, 2011 5:55pm Procedures Procedure Status Date Provider(s) Cystoscopic insertion of ureteral stent completed 08/17/13 REYNA PATE MD Encounters Encounter Location Date/Time Registered [facility] 08/23/13 8:41am Registered Clinic [facility] 08/21/13 12:49pm Registered Clinic [facility] 08/21/13 9:03am Discharged Inpatient [facility] 08/15/13 8:45pm Registered Clinic [facility] 08/14/13 12:51pm Registered Clinic [facility] 08/14/13 10:46am Registered Clinic [facility] 08/09/13 6:49am Registered Clinic [facility] 07/31/13 9:09am Registered Clinic [facility] 07/26/13 10:13am Registered Clinic [facility] 07/19/13 10:31am Registered Clinic [facility] 07/18/13 11:35am Registered Clinic [facility] 07/18/13 9:09am Discharged Recurring [facility] 07/07/13 10:00am Registered Clinic [facility] 06/26/13 8:37am Discharged Inpatient [facility] 06/19/13 10:10am Registered Clinic [facility] 06/14/13 8:34am Registered Clinic [facility] 06/12/13 10:07am Registered Clinic [facility] 06/12/13 10:03am Registered Clinic [facility] 06/02/13 1:25pm Registered Clinic [facility] 05/26/13 6:19am
--- OUTSIDE RECORDS SUMMARY | 2016-05-16 11:09 | XMS REPORT | Continuity of Care Document ---
Author Author [facility] Organization [facility] Address Unknown Phone Unavailable Care Team Providers Care Menagerie Superintendent Name Role Phone HAMILTON RECINOS DO Primary Care Physician [phone] Insurance Providers Payer Name Policy Number Subscriber Name Relationship [facility] Community Plan [id number] Luis M Berman 19 Self Advance Directives Directive Response Recorded Date/Time Advanced Directives Type None 08/29/13 4:00pm Ordered Resuscitation Status Full Code 06/19/13 10:41am Resuscitation Documents on File No 01/12/14 10:49am Chief Complaint and Reason for Visit Chief Complaint SMALL BOWEL OBSTRUCTION Reason for Visit History of malignant neoplasm of colorectal region Small bowel obstruction Problems Medical Problems Problem [...] 12/29/2013 Active Small bowel obstruction 12/29/2013 Active Small bowel obstruction Unknown Active Surgical Problems Problem Onset Date Recorded [...] Qty 11/02/13 Active Gabapentin 300 Mg PO TWICE A DAY 11/20/13 Active Methimazole 60 Mg PO DAILY 12/19/13 Active Social History Social History Problem Response Recorded Date/Time Smoking Status Current every day smoker 08/29/2013 4:02pm When did patient START smoking? 18YRS OLD 01/12/2014 10:47am Chewing Tobacco Status No 08/29/2013 1:04pm Hx Substance Use No 01/12/2014 6:56am Hx Alcohol Use No 01/12/2014 6:56am Has the pt used tobacco in the last 12 months Yes 01/12/2014 10:47am Query Response Start Date Stop Date Smoking Status Current every day smoker Hospital Discharge Instructions Instructions: Care Instructions: Reason for Hospitalization: SMALL BOWEL OBSTRUCTION I was in the hospital because (patient own words): TWISTED BOWEL Discharge Diet: Regular Discharge Activity: Activity as Tolerated Follow Up Appointments: Follow up with Dr. Recinos Jan 25 at 3:00 Have CBC with diff, CMP, Mg, Phos [place] [facility] [place] that [place]. Follow up with Dr. Abad WednesdayJan.23 at 2:[address] Dudley needs to be scheduled via the patient Follow up with Dr. Lizarraga WednesdayJan 26 at 9:50 Patient Instructions: Continue home health Return to care immediately if abdominal pain, nausea, vomiting, diarrhea, constipation occur. Condition at time of discharge: Good General Information: n/a Condition at time of discharge: Good Good Plan of Care Discharge Date 01/15/14 4:35pm Disposition 01 DISCHARGED HOME, SELF-CARE Instructions/Education Provided DI for Small Bowel Obstruction Prescriptions See Medications Section Functional Status Query Response Date Recorded Physical Hygiene Self January 15, 2014 4:32pm Disabilities None August 29, 2013 3:16pm Devices Used Glasses January 15, 2014 4:32pm Dressing Self January 15, 2014 4:32pm Ambulation Self August 29, 2013 1:04pm Diet Self January 15, 2014 4:32pm Mental Status Alert August 29, 2013 3:16pm Disabilities None August 29, 2013 3:16pm Devices Used Glasses January 15, 2014 4:32pm Physical Hygiene Self January 15, 2014 4:32pm Dressing Self January 15, 2014 4:32pm Ambulation Self August 29, 2013 1:04pm Diet Self January 15, 2014 4:32pm Allergies, Adverse Reactions, Alerts Allergen Type Severity Reaction Status Last Updated No Known Allergies Active 01/12/14 Immunizations Name Given Type Hx Influenza Vaccination Y DECEMBER 2013 Historical Hx Pneumococcal Vaccination Y FALL 2012 Historical Hx Tetanus, Diptheria, Pertussis No Historical Hx Influenza Vaccination Y DECEMBER 2013 Historical Hx Tetanus Diptheria No Historical Hx Tetanus, Diptheria, Pertussis No Historical Hx Tetanus Toxoid Vaccination No Historical Vital Signs Acute Vital Signs Vital Response Date/Time Temperature (Fahrenheit) 96.8 deg F (96.8 - 99.1) Temperature (Calculated Celsius) 36.54927 degrees C (36.0 - 37.3) Temperature Source Oral Pulse Rate (adult) 65 bpm (60 - 100) Respiratory Rate 16 breaths/min (10 - 20) O2 Sat by Pulse Oximetry 100 % (90 - 100) Oxygen Delivery Method Room Air Blood Pressure 152/97 mm Hg Blood Pressure Source Automatic Cuff Height (Feet) 5 feet Height (Inches) 3.00 inches Height 5 ft 3 in Weight 116 lb Body Mass Index 20.0 kg/m^2 Results Test Source Date Result Interp. Ref. Range Comments Absolute Reticulocyte Count October 25, 2013 1:45pm 0.0382 T/MM3 N 0.0300-0.0900 Activated Partial Thromboplast Time January 12, 2014 11:01am 40.9 SEC H 24-36 Alanine Aminotransferase (ALT/SGPT) January 15, 2014 4:22am 24 U/L N 9- 52 Albumin January 15, 2014 4:22am 2.5 G/DL L 3.5-5.0 Albumin/Globulin Ratio January 15, 2014 4:22am 0.8 RATIO L 1.1-2.2 Alcohol, Quantitative August 29, 2013 6:30pm <10 MG/DL - Alkaline Phosphatase January 15, 2014 4:22am 155 U/L H 38-126 Ammonia August 15, 2013 6:50pm < 9 UMOL/L L 9-33 COMMENT DO ON BLOOD DRAWN TODAYCOMMENT * & TSH RECEPTOR ANTIBODIES * Amylase Level January 12, 2014 7:47am < 30 U/L L 30-110 Anion Gap January 15, 2014 4:22am 6 MEQ/L N 5-15 Anisocytosis January 04, 2014 10:55am 1+ - Arterial Blood Base Excess August 29, 2013 6:25pm -5.2 MMOL/L L -2.0-2.0 Arterial Blood HCO3 August 29, 2013 6:25pm 20 MEQ/L L 22-26 Arterial Blood Oxygen Saturation August 29, 2013 6:25pm 96.0 % N 95.0- 98.0 Arterial Blood Partial Pressure CO2 August 29, 2013 6:25pm 37 MMHG N 34- 45 Arterial Blood Total CO2 August 29, 2013 6:25pm 21.1 MEQ/L L 23-27 Arterial Blood pH August 29, 2013 6:25pm 7.340 L 7.350-7.450 Aspartate Amino Transf (AST/SGOT) January 15, 2014 4:22am 11 U/L L 14- 36 BUN/Creatinine Ratio January 15, 2014 4:22am 10 RATIO N 6-26 Band Neutrophils # January 04, 2014 10:55am 1.0 T/MM3 - Band Neutrophils % January 04, 2014 10:55am 13.0 % H 0-6 Basophils # (Auto) January 15, 2014 4:22am 0.0 T/MM3 N 0-0.2 Basophils # (Manual) October 26, 2013 8:10pm 0.0 T/MM3 N 0-0.2 Basophils % (Manual) October 26, 2013 8:10pm 0.0 % N 0-2 Basophils (%) (Auto) January 15, 2014 4:22am 1.1 % N 0-2 Blood Smear Pathologist Review October 25, 2013 1:45pm Sent for review - Blood Urea Nitrogen January 15, 2014 4:22am 10.0 MG/DL N 7-17 C-Reactive Protein December 08, 2013 12:01pm 34.4 MG/L H 0-9 CA 125 Antigen February 20, 2013 3:04pm 11.6 U/ML N 0-35 Calcium Level January 15, 2014 4:22am 8.2 MG/DL L 8.4-10.2 Calculated Osmolality January 15, 2014 4:22am 266 MOSM/KG N 261-280 Carbon Dioxide Level January 15, 2014 4:22am 28 MEQ/L N 22-30 Carcinoembryonic Antigen January 05, 2014 9:57am 2.45 UG/L N 0-3.0 ADD -ON FROM EARLIER TESTING/SJM Chloride Level January 15, 2014 4:22am 105 MEQ/L N 98-107 Cholesterol Level August 16, 2013 4:35am 80 MG/DL L 132-199 Cholesterol/HDL Ratio August 16, 2013 4:35am 4.0 RATIO N 0-4.0 Coagulation Factor VII October 26, 2013 9:40am 64 % L - Factor VII performed at [facility], [address] [facility], [place], [place] [id number] Director Marlena Cottrell MD Conjugated Bilirubin July [...] 30 min post cortrosyn Creatine Kinase MB January 12, 2014 11:01am 1.4 NG/ML N 0-3.4 COMMENT add to blood already drawn in lab.COMMENT add to blood in lab from this AM. Creatinine January 15, 2014 4:22am 1.0 MG/DL DN 0.7-1.2 D-Dimer October 27, 2013 4:30am 758 NG/ML H 0-224 <224 NG/ML= PRESUMPTIVE NEGATIVE FOR PE OR DVT>224 NG/ML=ADDITIONAL EVALUATION FOR PE OR DVT RECOMMENDED Eosinophils # (Auto) January 15, 2014 4:22am 0.2 T/MM3 N 0-0.5 Eosinophils # (Manual) January 04, 2014 10:55am 0.4 T/MM3 N 0-0.5 Eosinophils % (Manual) January 04, 2014 10:55am 5.0 % H 0-4 Eosinophils (%) (Auto) January 15, 2014 4:22am 4.4 % H 0-4 Erythrocyte Sedimentation Rate November [...] * & TSH RECEPTOR ANTIBODIES * Globulin January 15, 2014 4:22am 3.0 G/DL N 2.4-3.6 Glucose Level January 15, 2014 4:22am 88 MG/DL N 65-110 Haptoglobin October 25, 2013 1:45pm 329 mg/dL H - Haptoglobin performed at [facility], [address], [place] [address]Oqpbycx Director Marlena Cottrell MD Hematocrit January 15, 2014 4:22am 34.0 % L 36-46 Hemoglobin January 15, 2014 4:22am 11.0 GM/DL L 12-16 Hemoglobin A1c June 22, 2013 4:48am 4.9 % L 6-7 <6.0 NON-DIABETIC RANGE6.0-7.0 ADA THERAPEUTIC RANGE >7.0 ACTION SUGGESTED Hypochromasia October 26, 2013 4:52am 1+ - Immature Reticulocyte Fraction October 25, 2013 1:45pm 12.7 % N 3.3- 14.5 Immunoglobulin G August 01, 2012 4:58am 860.82 MG/DL N 700-1600 COMMENT do on blood already drawn Iron Level August 15, 2013 6:50pm 15 UG/DL L 37-170 COMMENT DO ON BLOOD DRAWN TODAYCOMMENT * & TSH RECEPTOR ANTIBODIES * LDL Cholesterol, Calculated August 16, 2013 4:35am 45.2 L 66-159 Lactate Dehydrogenase January 11, 2014 11:10am 282 U/L L 313-618 Large Platelets April 21, 2013 9:00am Few - Lipase January 12, 2014 7:47am 28 U/L N 23-300 Lymphocytes # (Auto) January 15, 2014 4:22am 1.0 T/MM3 N 1-4.8 Lymphocytes # (Manual) January 12, 2014 7:47am 0.4 T/MM3 L 1-4.8 Lymphocytes % (Manual) January 12, 2014 7:47am 5.0 % L 23-45 Lymphocytes (%) (Auto) January 15, 2014 4:22am 27.0 % N 23-45 Magnesium Level January 14, 2014 4:14am 1.6 MG/DL N 1.6-2.3 Mean Corpuscular Hemoglobin January 15, 2014 4:22am 30.8 UUG N 26-34 Mean Corpuscular Hemoglobin Concent January 15, 2014 4:22am 32.4 GM/DL N 31-37 Mean Corpuscular Volume January 15, 2014 4:22am 95.2 UM3 N 80-100 Mean Platelet Volume January 15, 2014 4:22am 10.4 UM3 N 9.4-12.4 Monocytes # (Auto) January 15, 2014 4:22am 0.3 T/MM3 N 0-0.8 Monocytes # (Manual) January 12, 2014 7:47am 0.2 T/MM3 N 0-0.8 Monocytes % (Manual) January 12, 2014 7:47am 3.0 % N 0-9.0 Monocytes (%) (Auto) January 15, 2014 4:22am 8.7 % N 0-9.0 Neutrophils # (Auto) January 15, 2014 4:22am 2.2 T/MM3 N 1.8-7.7 Neutrophils # (Manual) January 12, 2014 7:47am 6.5 T/MM3 N 1.8-7.7 Neutrophils % (Manual) January 12, 2014 7:47am 92.0 % H 33-66 Neutrophils (%) (Auto) January 15, 2014 4:22am 58.8 % N 33-66 Nucleated Red Blood Cells August 17, 2013 6:04am 1 - Ovalocytes August 17, 2013 6:04am 1+ - Percent Iron Saturation August 15, 2013 6:50pm 10 % N 9-55 COMMENT DO ON BLOOD DRAWN TODAYCOMMENT * & TSH RECEPTOR ANTIBODIES * Percent Reticulocyte Count October 25, 2013 1:45pm 1.8 % H 0.6-1.7 Phosphorus Level January 14, 2014 4:14am 2.9 MG/DL N 2.5-4.5 Platelet Count January 15, 2014 4:22am 383 T/MM3 N 130-400 Poikilocytosis October 26, 2013 4:52am 1+ - Potassium Level January 15, 2014 4:22am 3.5 MEQ/L L 3.6-5 Prothromb Time International Ratio January 12, 2014 11:01am 1.32 H 0.81 -1.09 THERAPUTIC RANGE=2.00-3.00 FOR ANTI-THROMBOSIS THERAPUTIC RANGE=2.50- 3.50 FOR IMPLANTED VALVE RDW Standard Deviation January 15, 2014 4:22am 58.7 FL H 36.9-50.2 Random Cortisol August 15, 2013 6:50pm 13.2 UG/DL - Before 10:00am: 4.46-22.7 ug/dL;After 5:00pm: 1.7-14.1 ug/dL Red Blood Count January 15, 2014 4:22am 3.57 M/MM3 L 4.00-5.20 Reticulocyte Hgb Content (CHr) October 25, 2013 1:45pm 23.5 PG L 30.8- 36.6 Schistocytes May 31, 2013 8:30am 1+ - Sodium Level January 15, 2014 4:22am 139 MEQ/L N 134-144 Stone Source December 19, 2013 10:28am Kidney - Corrected result; previously reported as kidney on 12/19/13 at 10:56 by Stone Weight October 31, 2013 8:30am 0.039 g - COMMENT BLADDER STONE Stool Occult Blood October 25, 2013 3:00pm Negative - Has specimen been collected/obtained? YCOMMENT x3 jessica, lazarus PASTOR if positive Stool for White Cells October 25, 2013 3:00pm Positive - Has specimen been collected/obtained? Y Tear Drop Cells May 10, 2013 8:50am 1+ - Thyroid Stimulating Hormone (TSH) January 14, 2014 4:14am 61.90 MIU/L DH 0.47-4.68 Thyroxine (T4) August 15, 2013 6:50pm 10.9 ug/dL - Thyroxine (T4) performed at [facility], [address] [place] [address] Claims Assistant Marlena Cottrell MD Total Bilirubin January 15, 2014 4:22am 0.40 MG/DL N 0.20-1.30 Total Creatine Kinase January 12, 2014 11:02am < 20 U/L L 30-135 COMMENT add to blood in lab from this AM. Total Iron Binding Capacity August 15, 2013 6:50pm 148 UG/DL L 261-497 COMMENT DO ON BLOOD DRAWN TODAYCOMMENT * & TSH RECEPTOR ANTIBODIES * Total Protein January 15, 2014 4:22am 5.5 G/DL L 6.3-8.2 Triglycerides Level August 29, 2013 6:30pm 143 MG/DL H 35-135 Troponin I January 12, 2014 11:01am 0.012 ng/ml N 0-0.12 COMMENT add to blood already drawn in lab.COMMENT add to blood in lab from this AM. Unconjugated Bilirubin July 22, 2012 12:50am 0.10 MG/DL N 0.00-1.10 Urine Amorphous Urates November 30, 2011 3:00pm Many - Has specimen been collected/obtained? Y Urine Bacteria January 12, 2014 7:30am None seen - Has specimen been collected/obtained? Y Urine Bilirubin January 12, 2014 7:30am Negative - Has specimen been collected/obtained? Y Urine Blood January 12, 2014 7:30am Trace-intact H - Has specimen been collected/obtained? Y Urine Collection Type January 12, 2014 7:30am Cleancatch-midstream - Has specimen been collected/obtained? Y Urine Color January 12, 2014 7:30am Yellow - Has specimen been collected/obtained? Y Urine Culture Indicated December 08, 2013 12:02pm Cult reflexed &setup - Urine Eosinophils October 30, 2013 1:51pm 0 % - Eosinophil Count, Urine performed at [facility], [address] [place] [address] Claims Assistant Marlena Cottrell MD Urine Glucose (UA) January 12, 2014 7:30am Negative - Has specimen been collected/obtained? Y Urine Ketones January 12, 2014 7:30am Negative - Has specimen been collected/obtained? Y Urine Leukocyte Esterase January 12, 2014 7:30am 2+ H - Has specimen been collected/obtained? Y Urine Nitrite January 12, 2014 7:30am Negative - Has specimen been collected/obtained? Y Urine Osmolality October 30, 2013 1:51pm 366 mOsm/kg - Osmolality, Urine performed at [facility], [address], [id number] Claims Assistant Marlena Cottrell MD Urine Protein January 12, 2014 7:30am Negative - Has specimen been collected/obtained? Y Urine RBC January 12, 2014 7:30am None seen /HPF - Has specimen been collected/obtained? Y Urine Random Creatinine October 30, 2013 1:51pm 19.7 MG/DL - Has specimen been collected/obtained? Y Urine Random Sodium October 30, 2013 1:51pm 166 MEQ/L H 30-90 Has specimen been collected/obtained? Y Urine Specific [place] January 12, 2014 7:30am 1.015 - Has specimen been collected/obtained? Y Urine Squamous Epithelial Cells January 12, 2014 7:30am 0-5 - Has specimen been collected/obtained? Y Urine Transitional Epithelial Cells August 29, 2013 6:30am 3-5 /HPF - Has specimen been collected/obtained? Y Urine Turbidity January 12, 2014 7:30am Clear - Has specimen been collected/obtained? Y Urine Urobilinogen January 12, 2014 7:30am 0.2 EU/DL - Has specimen been collected/obtained? Y Urine WBC January 12, 2014 7:30am 50-200 /HPF H - Has specimen been collected/obtained? Y Urine WBC Clumps August 29, 2013 6:30am None seen - Has specimen been collected/obtained? Y Urine Yeast January 12, 2014 7:30am 1+ H - Has specimen been collected /obtained? Y Urine pH January 12, 2014 7:30am 6.5 - Has specimen been collected/ obtained? Y VLDL Cholesterol August 16, 2013 4:35am 14.8 MG/DL N 0-28 Vancomycin Level Trough October 31, 2013 8:51am 11.71 UG/ML L 15-20 White Blood Count January 15, 2014 4:22am 3.7 T/MM3 L 4.5-11.0 Chemistry Specimen Hemolysis January 15, 2014 4:22am < 15 0-25 0-25 : No Hemolysis.26-70: [...] can falsely decrease Phenytoin. Recommend specimen recollection. Oxygen Delivery Method (LAB) August 29, 2013 6:25pm Room air - Stone Constituent 1 December 19, 2013 10:28am See below - 90% Calcium phosphate (apatite) Stone Constituent 2 December 19, 2013 10:28am See below - 10% Calcium carbonateTest Performed by: [place] [address] Poultry Trimmer: Lonny Franz M.D. Stone Analysis performed at [facility], [address] [place] [address] Claims Assistant Bob Cottrell MD Glucometer June 20, 2013 6:29pm 108 mg/dL N 65-110 Lab Scanned Report January 11, 2014 11:34am LAB TEST FORM REQUEST [id number] - Chlamydia trachomatis Amplified DNA October 22, 2011 9:38pm Ref lab rpt scanned - --- 10/26/11 0723 ---CHLAMDNA previously reported as: SENT OUT HDL Cholesterol Direct August 16, 2013 4:35am 20 MG/DL L 40-60 Platelet Evaluation (Diff) May 31, 2013 8:30am Few - Turbidity January 15, 2014 4:22am < 20 0-20 Reactive Lymphocytes % October 30, 2013 4:44am 5.0 % H 0-0 Glomerular Filtration Rate Calc January 15, 2014 4:22am 59 - Thyroperoxidase Antibody August 15, 2013 11:10pm <3 IU/mL - Thyroperoxidase Ab (TPO) performed at [facility], [address] [place] [address] Claims Assistant Marlena Cottrell MD Reactive Lymphocytes # October 30, 2013 4:44am 0.6 T/MM3 H 0-0 Thyroglobulin Antibody Screen August 15, 2013 6:50pm <3 IU/mL - Thyroglobulin Ab screen performed at [facility], [address] [place] [address] Claims Assistant Marlena Cottrell MD Immature Granulocyte # (Auto) January 15, 2014 4:22am 0.00 T/MM3 N 0.00 -0.03 Immature Granulocyte % (Auto) January 15, 2014 4:22am 0.0 % N 0.0-0.5 Arterial Blood pO2 at Patient Temp August 29, 2013 6:25pm 90 MMHG N 80- 100 Venous Blood Lactate January 12, 2014 11:01am 1.2 MMOL/L N 0.6-2.2 COMMENT do 6 hours after the lactic acid already ordered. Beta HCG, Quantitative December 08, 2011 8:40pm < 2.39 UIU/ML - NON- INDIVIDUALS=0 - 4.83;SAMPLES BETWEEN 4.83 - 25 SHOULD BE RE-TESTED AFTER 48 HOURS IF IS SUSPECTED; GESTATION 1-10 WEEKS: 45-256,380; 11-15 WEEKS: 11,556-265,380; 16-22 WEEKS: 27,023-111,954; 23-40 WEEKS: 24,031-101,566 Procalcitonin December 25, 2013 9:56pm 0.07 NG/ML - PCT </=0.5 ng/mL - sepsis not likely;PCT >0.5 and </=2 ng/mL - sepsis possible; PCT >2 ng/mL - sepsis likely; PCT >/=10 ng/mL - systemic inflammatory response - sepsis or septic shock highly indicated. Icterus Index January 15, 2014 4:22am < 2 0-7 Arterial Blood Lactic Acid July 27, 2012 4:28pm 0.9 MMOL/L N 0.5-0.9 FX-Vwi-B-Type Natriuretic Peptide January 13, 2014 4:22am 160 PG/ML N 0 -175 Rule in cut points: <50 years old=450; 50-75 years old=900; >75 years old=1800; When utilizing ProBNP rule-in cut points, adjustment for impaired renal function is typically not required. Triiodothyonine (T3) (JOSE MIGUEL) August 15, 2013 6:50pm 92 ng/dL - T3 Total performed at [facility], [address] [facility], [place] [address]Uqkrgtu Director Marlena Cottrell MD C. difficile Toxin B Gene (PCR) October 28, 2013 11:25pm Positive H - Has specimen been collected/obtained? Y Blood Culture Catheter/Port Blood December 25, 2013 11:10pm NO GROWTH AFTER 5 DAYS Gram Stain Drainage-Surgical Wound December 08, 2011 9:00pm Gram Stain Rectum November 22, 2013 12:25pm Gram Stain Cervix October 22, 2011 9:25pm LORAINE Preparation Other December 05, 2013 11:30am Ova and Parasites Stool October 25, 2013 3:00pm Gram Stain Bladder October 31, 2013 8:04am Urine Culture Urine, Clean Catch-Midstream December 26, 2013 2:41pm Mixed Gram Positive Organisms Gram Stain Catheter (Line) Site December 03, 2011 5:55pm Name: LUIS M BERMAN Unit #: [id number] : 1965 Sex: F Loc / Svc: MED DOS: 01/12/14 Signed Report #: [id number] DIAGNOSTIC IMAGING REPORT TYPE OF EXAM: CHEST, PA & LATERAL Dictated By: NORM PALMER MD INDICATION: ITS.REASON: hypoxemia CHEST 2-VIEWS UPRIGHT (PA & LAT): COMPARISON: December 25, 2013 FINDINGS: The lungs are clear without evidence of focal abnormal airspace opacity. There is no pleural effusion or pneumothorax. Nasogastric tube has been removed. Port catheter remains in place. The heart size, mediastinal contours and pulmonary vascularity are within normal limits. There is no significant skeletal abnormality. IMPRESSION: No acute cardiopulmonary disease. . Procedures Procedure Status Date Provider(s) BLOOD TRANSFUSION SERVICE completed 10/25/13 HAMILTON RECINOS DO CYSTOSCOPY AND TREATMENT completed 10/25/13 REYNA [...] W/STONE REMOVE completed 12/19/13 REYNA PATE MD PAVEL SUBQ TISSUE 20 SQ CM/< completed 12/25/13 ALLY ABAD MD PAVEL SUBQ TISSUE 20 SQ CM/< completed 01/02/14 NEG PRESS WOUND [place] </=50 CM completed 01/02/14 [id number]"ADHESIVE BORDER, EACH DRESSING" completed 01/02/14 X-RAY EXAM OF ABDOMEN completed 01/04/14 Encounters Encounter Location Date/Time Discharged Inpatient [facility] 01/12/14 9:38am Registered [facility] 01/11/14 11:22am Registered Clinic [facility] 01/09/14 1:58pm Registered Clinic [facility] 01/08/14 11:07am Registered Clinic [facility] 01/04/14 3:11pm Registered Clinic [facility] 01/02/14 1:23pm Discharged Inpatient [facility] 12/25/13 9:56pm Registered Clinic [facility] 12/12/13 1:27pm Registered Clinic [facility] 12/08/13 12:20pm Registered Clinic [facility] 12/08/13 11:48am Registered Clinic [facility] 12/06/13 10:08am Registered Clinic [facility] 12/04/13 11:20am Registered Clinic [facility] 12/01/13 9:33am Registered Clinic [facility] 11/28/13 1:25pm Registered Clinic [facility] 11/23/13 8:34am Registered Clinic [facility] 11/22/13 12:39pm Registered Clinic [facility] 11/22/13 12:24pm Registered Clinic [facility] 11/17/13 10:26am Registered Clinic [facility] 11/15/13 1:39pm Discharged Recurring [facility] 11/14/13 8:42am Registered Clinic [facility] 11/08/13 4:28pm Registered Clinic [facility] 11/08/13 9:01am Registered Clinic [facility] 11/07/13 10:27am Discharged Inpatient [facility] 10/25/13 12:11pm Departed Emergency Room [facility] 10/18/13 11:25am Recent Diagnosis History of malignant neoplasm of colorectal region Small bowel obstruction
--- OUTSIDE RECORDS SUMMARY | 2016-05-16 11:09 | XMS REPORT ---
Author Author Judson Guzmán 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
--- OUTSIDE RECORDS SUMMARY | 2016-05-16 11:09 | XMS REPORT | Continuity of Care Document ---
Author Author [facility] Organization [facility] Address Unknown Phone Unavailable Care Team Providers Care Water Truck Driver Name Role Phone HAMILTON RECINOS DO Primary Care Physician [phone] Insurance Providers Payer Name Policy Number Subscriber Name Relationship [facility] Community Plan [id number] Lusi M Aragon 19 Self Advance Directives Directive Response Recorded Date/Time Advanced Directives Type None 08/29/13 4:00pm Ordered Resuscitation Status Full Code 06/19/13 10:41am Chief Complaint and Reason for Visit Chief Complaint Back Pain or Injury Reason for Visit ABDMNAL PAIN EPIGASTRIC Pancreatitis Problems Medical Problems Problem Onset Date Status [...] infection) Unknown Active Abdominal pain Unknown Active Surgical Problems Problem Onset Date Recorded Date/Time Status Pancreatitis Unknown 08/31/2013 2:05pm Active Constipation Unknown 08/31/2013 2:05pm Active Medications Medication Dose Route Sig Days/Qty [...] Udtab PO EVERY 4 HOURS 04/21/13 Active Gabapentin 100 Mg PO TWICE A DAY 05/14/13 Active Escitalopram Oxalate 10 Mg PO DAILY 05/14/13 08/29/13 Discontinued Ondansetron 4 Mg PO NEEDED 08/15/13 09/01/13 Discontinued Pantoprazole Sodium 20 Mg PO BEFORE BREAKFAST 08/19/13 09/01/13 Discontinued Ciprofloxacin Hcl 500 Mg PO TWICE A DAY 14 Qty 08/29/13 09/01/13 Discontinued Fentanyl 1 Patch TD Q 3 D 08/29/13 Active Lisinopril 5 Mg PO DAILY 08/29/13 09/01/13 Discontinued Clonazepam 0.5 Tab PO TWICE A DAY 10/11/13 Active Sertraline HCl 1 Tab PO DAILY 10/18/13 Active Acetaminophen 2 Tab PO Every 6 Hours PRN PAIN 10/18/13 Active Methimazole 5 Mg PO DAILY 10/18/13 Active Ciprofloxacin 500 Mg PO TWICE A DAY 7 Days 10/18/13 Active Social History Social History Problem Response Recorded Date/Time Smoking Status Current every day smoker 08/29/2013 4:02pm When did patient START smoking? AGE 18 10/18/2013 12:43pm Chewing Tobacco Status No 08/29/2013 1:04pm Hx Substance Use No 10/18/2013 12:43pm Hx Alcohol Use No 10/18/2013 12:43pm Has the pt used tobacco in the last 12 months Yes 08/29/2013 4:02pm Query Response Start Date Stop Date Smoking Status Current every day smoker Hospital Discharge Instructions Instructions: Care Instructions: Reason for Hospitalization: PANCREATITIS I was in the hospital because (patient own words): "severe stomach and back pain" Discharge Diet: PRE-HOSPITALIZATION DIET Discharge Activity: PRE-HOSPITALIZATION ACTIVITY Follow Up Appointments: *FOLLOW UP WITH DR RECINOS IN 1 WEEK. CBC, CMP, MG AT [facility] BEFORE APPOINTMENT WITH DR RECINOS.-- DR. RECINOS APPOINTMENT ON 09/08/13 AT 10:15 AM--PHONE # [phone] *FOLLOW UP WITH DR NAYLOR--- APPOINTMENT WITH DR. SASCHA NAYLOR, SCHEDULED ON 09/08/13 *FOLLOW UP WITH DR MAR APPOINTMENT MADE ON 10/03/13 AT 2:30PM [phone]. TSH AND FREE T4 LAB DRAWN THAT DAY AT [facility] AND SENT TO DR MAR. Patient Instructions: RETURN TO CARE IMMEDIATELY IF ABDOMINAL PAIN, CONSTIPATION SHOULD WORSEN. General Information: *CBC, CMP, MG IN ONE WEEK AT [facility] BEFORE APPOINTMENT WITH DR RECINOS. *PER DR RECINOS, WE ARE HOLDING YOUR THYROID ABLATION FOR NOW. Condition at time of discharge: Good Care Plan Discharge Patient: Goal: Pain is contolled Patient Instructions: see patient instructions 3.You may shower with the dressing in place, but do not submerge in water 4.Do not allow water to seep under the dressing, if it should seep under, remove the dressing and notify your surgeon. Notify Physician If: Call your Surgeon if you have: 1.Chest pain, difficulty breathing, fever>100.5 degrees, chills, heart rate >100, confusion, or persistent nausea/vomitting. 2.Severe pain, swelling, redness, or warmth in either of your legs. 3.During office hours, call [phone] 4. After hours, please call [facility] at [phone], and have the gridcap machine operator page your Surgeon IN THE EVENT OF AN EMERGENCY, seek medical care at the nearest Emergency Room General Information: Follow up with cardiology in 2-4 weeks. call satellite tv technician of choice dr nation or dr huitron Condition at time of discharge: Good Plan of Care Discharge Date 09/01/13 2:41pm Disposition 02 TO [facility] Condition at Discharge Improved Instructions/Education Provided DI for Pancreatitis Prescriptions See Medications Section Referrals HAMILTON RECINOS DO Functional Status Query Response Date Recorded Physical Hygiene Self October 18, 2013 12:43pm Disabilities None August 29, 2013 3:16pm Devices Used None October 18, 2013 12:43pm Dressing Self October 18, 2013 12:43pm Ambulation Self August 29, 2013 1:04pm Diet Self October 18, 2013 12:43pm Mental Status Alert August 29, 2013 3:16pm Disabilities None August 29, 2013 3:16pm Devices Used None October 18, 2013 12:43pm Physical Hygiene Self October 18, 2013 12:43pm Dressing Self October 18, 2013 12:43pm Ambulation Self August 29, 2013 1:04pm Diet Self October 18, 2013 12:43pm Allergies, Adverse Reactions, Alerts Allergen Type Severity Reaction Status Last Updated No Known Allergies Active 10/10/13 Immunizations Name Given Type Hx Influenza Vaccination Y Jan Historical Hx Pneumococcal Vaccination Y Jan Historical Hx Influenza Vaccination Y Jan Historical Vital Signs Acute Vital Signs Vital Response Date/Time Temperature (Fahrenheit) 97 deg F (96.8 - 99.1) Temperature (Calculated Celsius) 36.1140 degrees C (36.0 - 37.3) Pulse Rate (adult) 88 bpm (60 - 100) Respiratory Rate 18 breaths/min (10 - 20) O2 Sat by Pulse Oximetry 94 % (90 - 100) Blood Pressure 103/55 mm Hg Height 5 ft 3 in Weight 115 lb Body Mass Index 20.0 kg/m^2 Results Test Source Date Result Interp. Ref. Range Comments Absolute Reticulocyte Count August 15, 2013 6:50pm 0.0229 T/MM3 L 0.0300- 0.0900 Activated Partial Thromboplast Time August 15, 2013 6:50pm 41.1 SEC H 24- 36 Alanine Aminotransferase (ALT/SGPT) October 18, 2013 1:25pm 19 U/L N 9- 52 Albumin October 18, 2013 1:25pm 2.9 G/DL L 3.5-5.0 Albumin/Globulin Ratio October 18, 2013 1:25pm 1.0 RATIO L 1.1-2.2 Alcohol, Quantitative August 29, 2013 6:30pm <10 MG/DL - Alkaline Phosphatase October 18, 2013 1:25pm 162 U/L H 38-126 Ammonia August 15, 2013 6:50pm < 9 UMOL/L L 9-33 COMMENT DO ON BLOOD DRAWN TODAYCOMMENT * & TSH RECEPTOR ANTIBODIES * Amylase Level October 18, 2013 1:25pm < 30 U/L L 30-110 Anion Gap October 18, 2013 1:25pm 13 MEQ/L N 5-15 Anisocytosis August 21, 2013 8:50am 1+ - Arterial Blood Base Excess August [...] 7.340 L 7.350-7.450 Aspartate Amino Transf (AST/SGOT) October 18, 2013 1:25pm 14 U/L N 14-36 BUN/Creatinine Ratio October 18, 2013 1:25pm 19 RATIO N 6-26 Band Neutrophils # August 21, 2013 8:50am 0.1 T/MM3 - Band Neutrophils % August 21, 2013 8:50am 1.0 % N 0-6 Basophils # (Auto) October 18, 2013 1:25pm 0.0 T/MM3 N 0-0.2 Basophils # (Manual) August 15, 2013 6:50pm 0.0 T/MM3 N 0-0.2 Basophils % (Manual) August 15, 2013 6:50pm 0.0 % N 0-2 Basophils (%) (Auto) October 18, 2013 1:25pm 0.2 % N 0-2 Blood Smear Pathologist Review August 15, 2013 6:50pm Sent for review - COMMENT * AND THYROID PERAXIDOSE ANTIBODIES * Blood Urea Nitrogen October 18, 2013 1:25pm 17.0 MG/DL N 7-17 C-Reactive Protein August 31, 2013 4:33am 9.4 MG/L H 0-9 CA 125 Antigen February 20, 2013 3:04pm 11.6 U/ML N 0-35 Calcium Level October 18, 2013 1:25pm 8.6 MG/DL N 8.4-10.2 Calculated Osmolality October 18, 2013 1:25pm 274 MOSM/KG N 261-280 Carbon Dioxide Level October 18, 2013 1:25pm 24 MEQ/L N 22-30 Carcinoembryonic Antigen March 10, 2013 8:25am 5.90 UG/L H 0-3.0 Chloride Level October 18, 2013 1:25pm 105 MEQ/L N 98-107 Cholesterol Level August [...] 2012 3:30pm < 0.2 NG/ML 0-3.4 Creatinine October 18, 2013 1:25pm 0.9 MG/DL N 0.7-1.2 Eosinophils # (Auto) October 18, 2013 1:25pm 0.1 T/MM3 N 0-0.5 Eosinophils # (Manual) August 21, 2013 8:50am 0.1 T/MM3 N 0-0.5 Eosinophils % (Manual) August 21, 2013 8:50am 1.0 % N 0-4 Eosinophils (%) (Auto) October 18, 2013 1:25pm 0.7 % N 0-4 Erythrocyte Sedimentation Rate August 31, 2013 4:33am 78 MM/HR H 0-20 Ferritin August 15, 2013 [...] * & TSH RECEPTOR ANTIBODIES * Globulin October 18, 2013 1:25pm 3.0 G/DL N 2.4-3.6 Glucose Level October 18, 2013 1:25pm 89 MG/DL N 65-110 Haptoglobin August 15, 2013 6:50pm 296 mg/dL H - Haptoglobin performed at [facility], [address], [place] [address]Viojjrg Director Marlena Cottrell MD Hematocrit October 18, 2013 1:25pm 25.7 % L 36-46 Hemoglobin October 18, 2013 1:25pm 8.0 GM/DL L 12-16 Hemoglobin A1c June 22, 2013 4:48am 4.9 % L 6-7 <6.0 NON-DIABETIC RANGE6.0-7.0 ADA THERAPEUTIC RANGE >7.0 ACTION SUGGESTED Hypochromasia August 21, 2013 8:50am 1+ - [...] 2013 4:35am 45.2 L 66-159 Lactate Dehydrogenase October 09, 2013 8:30am 271 U/L L 313-618 Large Platelets April 21, 2013 9:00am Few - Lipase October 18, 2013 1:25pm 17 U/L L 23-300 Lymphocytes # (Auto) October 18, 2013 1:25pm 1.0 T/MM3 N 1-4.8 Lymphocytes # (Manual) August 21, 2013 8:50am 1.1 T/MM3 N 1-4.8 Lymphocytes % (Manual) August 21, 2013 8:50am 18.0 % L 23-45 Lymphocytes (%) (Auto) October 18, 2013 1:25pm 7.3 % L 23-45 Magnesium Level October 09, 2013 8:30am 1.4 MG/DL L 1.6-2.3 Mean Corpuscular Hemoglobin October 18, 2013 1:25pm 30.7 UUG N 26-34 Mean Corpuscular Hemoglobin Concent October 18, 2013 1:25pm 31.1 GM/DL N 31-37 Mean Corpuscular Volume October 18, 2013 1:25pm 98.5 UM3 N 80-100 Mean Platelet Volume October 18, 2013 1:25pm 9.3 UM3 L 9.4-12.4 Monocytes # (Auto) October 18, 2013 1:25pm 0.8 T/MM3 N 0-0.8 Monocytes # (Manual) August 21, 2013 8:50am 0.4 T/MM3 N 0-0.8 Monocytes % (Manual) August 21, 2013 8:50am 6.0 % N 0-9.0 Monocytes (%) (Auto) October 18, 2013 1:25pm 6.0 % N 0-9.0 Neutrophils # (Auto) October 18, 2013 1:25pm 11.3 T/MM3 H 1.8-7.7 Neutrophils # (Manual) August 21, 2013 8:50am 4.4 T/MM3 N 1.8-7.7 Neutrophils % (Manual) August 21, 2013 8:50am 74.0 % H 33-66 Neutrophils (%) (Auto) October 18, 2013 1:25pm 85.4 % H 33-66 Nucleated Red Blood Cells [...] 4:35am 4.1 MG/DL N 2.5-4.5 Platelet Count October 18, 2013 1:25pm 492 T/MM3 H 130-400 Poikilocytosis August 17, 2013 6:04am 1+ - Potassium Level October 18, 2013 1:25pm 3.9 MEQ/L N 3.6-5 Prothromb Time International Ratio August 15, 2013 6:50pm 1.66 H 0.81- 1.09 THERAPUTIC RANGE=2.00-3.00 FOR ANTI-THROMBOSIS THERAPUTIC RANGE=2.50- 3.50 FOR IMPLANTED VALVE RDW Standard Deviation October 18, 2013 1:25pm 48.1 FL N 36.9-50.2 Random Cortisol August 15, 2013 6:50pm 13.2 UG/DL - Before 10:00am: 4.46-22.7 ug/dL;After 5:00pm: 1.7-14.1 ug/dL Red Blood Count October 18, 2013 1:25pm 2.61 M/MM3 L 4.00-5.20 Reticulocyte Hgb Content (CHr) August 15, 2013 6:50pm 32.0 PG N 30.8-36.6 Schistocytes May 31, 2013 8:30am 1+ - Sodium Level October 18, 2013 1:25pm 142 MEQ/L N 134-144 Stool Occult Blood August [...] 10.9 ug/dL - Thyroxine (T4) performed at [facility], [address] [place] [address] Astronautical Engineer Marlena Cottrell MD Total Bilirubin October 18, 2013 1:25pm 0.20 MG/DL N 0.20-1.30 Total Creatine Kinase July 01, 2012 3:30pm < 20 U/L L 30-135 Total Iron Binding Capacity August 15, 2013 6:50pm 148 UG/DL L 261-497 COMMENT DO ON BLOOD DRAWN TODAYCOMMENT * & TSH RECEPTOR ANTIBODIES * Total Protein October 18, 2013 1:25pm 5.9 G/DL L 6.3-8.2 Triglycerides Level August 29, 2013 6:30pm 143 MG/DL H 35-135 Troponin I August 29, 2013 6:30pm < 0.012 ng/ml 0-0.12 Unconjugated Bilirubin July 22, 2012 12:50am 0.10 MG/DL N 0.00-1.10 Urine Amorphous Urates November 30, 2011 3:00pm Many - Has specimen been collected/obtained? Y Urine Bacteria October 18, 2013 1:15pm 2+ H - Has specimen been collected/obtained? Y Urine Bilirubin October 18, 2013 1:15pm Negative - Has specimen been collected/obtained? Y Urine Blood October 18, 2013 1:15pm 3+ H - Has specimen been collected/ obtained? Y Urine Collection Type October 18, 2013 1:15pm Voided-not cc-midstr - Has specimen been collected/obtained? Y Urine Color October 18, 2013 1:15pm Yellow - Has specimen been collected/obtained? Y Urine Culture Indicated October 18, 2013 1:15pm Cult reflexed &setup - Has specimen been collected/obtained? Y Urine Glucose (UA) October 18, 2013 1:15pm Negative - Has specimen been collected/obtained? Y Urine Ketones October 18, 2013 1:15pm Negative - Has specimen been collected/obtained? Y Urine Leukocyte Esterase October 18, 2013 1:15pm 3+ H - Has specimen been collected/obtained? Y Urine Nitrite October 18, 2013 1:15pm Negative - Has specimen been collected/obtained? Y Urine Osmolality August 15, 2013 8:00pm 114 mOsm/kg - Osmolality, Urine performed at [facility], [address] [facility], [id number] Astronautical Engineer Marlena Cottrell MD Urine Protein October 18, 2013 1:15pm Trace H - Has specimen been collected/obtained? Y Urine RBC October 18, 2013 1:15pm 3-5 /HPF H - Has specimen been collected/obtained? Y Urine Random Creatinine August 15, 2013 8:00pm 20.9 MG/DL - Has specimen been collected/obtained? Y Urine Random Sodium August 15, 2013 8:00pm 18 MEQ/L L 30-90 Has specimen been collected/obtained? Y Urine Specific [place] October 18, 2013 1:15pm 1.010 L - Has specimen been collected/obtained? Y Urine Squamous Epithelial Cells October 18, 2013 1:15pm 0-5 - Has specimen been collected/obtained? Y Urine Transitional Epithelial Cells August 29, 2013 6:30am 3-5 /HPF - Has specimen been collected/obtained? Y Urine Turbidity October 18, 2013 1:15pm Sl cloudy - Has specimen been collected/obtained? Y Urine Urobilinogen October 18, 2013 1:15pm 0.2 EU/DL - Has specimen been collected/obtained? Y Urine WBC October 18, 2013 1:15pm 20-30 /HPF H - Has specimen been collected/obtained? Y Urine WBC Clumps August 29, 2013 6:30am None seen - Has specimen been collected/obtained? Y Urine Yeast October 18, 2013 1:15pm 2+ H - Has specimen been collected/ obtained? Y Urine pH October 18, 2013 1:15pm 6.0 - Has specimen been collected/ obtained? Y VLDL Cholesterol August 16, 2013 4:35am 14.8 MG/DL N 0-28 Vancomycin Level Trough July 03, 2012 8:45am 6.95 UG/ML L 15-20 COMMENT PRIOR TO VANCO DOSE SCHEDULED FOR 0900 White Blood Count October 18, 2013 1:25pm 13.3 T/MM3 H 4.5-11.0 Chemistry Specimen Hemolysis October 18, 2013 1:25pm < 15 0-25 0-25: No Hemolysis.26-70: Slight [...] August 29, 2013 6:25pm Room air - Glucometer June 20, 2013 6:29pm 108 mg/dL N 65-110 Lab Scanned Report October 09, 2013 10:39am LAB TEST FORM REQUEST [id number] - Chlamydia trachomatis Amplified DNA October 22, 2011 9:38pm Ref lab rpt scanned - --- 10/26/11 0723 ---CHLAMDNA previously reported as: SENT OUT HDL Cholesterol Direct August 16, 2013 4:35am 20 MG/DL L 40-60 Platelet Evaluation (Diff) May 31, 2013 8:30am Few - Turbidity October 18, 2013 1:25pm < 20 0-20 Reactive Lymphocytes % April 21, 2013 9:00am 3.0 % H 0-0 Glomerular Filtration Rate Calc October 18, 2013 1:25pm 67 - Thyroperoxidase Antibody August 15, 2013 11:10pm <3 IU/mL - Thyroperoxidase Ab (TPO) performed at [facility], [address] [place] [id number] Astronautical Engineer Marlena Cottrell MD Reactive Lymphocytes # April 21, 2013 9:00am 0.2 T/MM3 H 0-0 Thyroglobulin Antibody Screen August 15, 2013 6:50pm <3 IU/mL - Thyroglobulin Ab screen performed at [facility], [address] [place] [address] Astronautical Engineer Marlena Cottrell MD Immature Granulocyte # (Auto) October 18, 2013 1:25pm 0.05 T/MM3 H 0.00- 0.03 Immature Granulocyte % (Auto) October 18, 2013 1:25pm 0.4 % N 0.0-0.5 Arterial Blood pO2 at Patient Temp August 29, 2013 6:25pm 90 MMHG N 80- 100 Venous Blood Lactate August 31, 2013 4:33am 0.6 MMOL/L N 0.6-2.2 Beta HCG, Quantitative December 08, 2011 8:40pm < 2.39 UIU/ML - NON- INDIVIDUALS=0 - 4.83;SAMPLES BETWEEN 4.83 - 25 SHOULD BE RE-TESTED AFTER 48 HOURS IF IS SUSPECTED; GESTATION 1-10 WEEKS: 45-256,380; 11-15 WEEKS: 11,556-265,380; 16-22 WEEKS: 27,023-111,954; 23-40 WEEKS: 24,031-101,566 Icterus Index October 18, 2013 1:25pm < 2 0-7 Arterial Blood Lactic Acid July 27, 2012 4:28pm 0.9 MMOL/L N 0.5-0.9 Triiodothyonine (T3) (JOSE MIGUEL) August 15, 2013 6:50pm 92 ng/dL - T3 Total performed at [facility], [address] [place], [place] [address]Ngoaqmy Director Marlena Cottrell MD C. difficile Toxin B Gene (PCR) August 21, 2013 12:55pm Negative - If Toxin A is clinically indicated, treat accordingly. Blood Culture Blood August 15, 2013 11:10pm NO GROWTH AFTER 5 DAYS Gram Stain Drainage-Surgical Wound December 08, 2011 9:00pm Stool Culture Stool August 21, 2013 12:55pm Gram Stain Cervix October 22, 2011 9:25pm Urine Culture Urine, Clean Catch-Midstream August 29, 2013 5:56am Paola Albicans Gram Stain Catheter (Line) Site December 03, 2011 5:55pm Helicobacter pylori Rapid Urease Gastric Biopsy July 28, 2012 11:03am Viral Culture Rectal/Vaginal July 26, 2013 10:00am Name: LUIS M ARAGON Unit #: [id number] : [id number] Sex: F Loc / Svc: [facility] DOS: 09/04/13 Signed Report #: [id number] DIAGNOSTIC IMAGING REPORT TYPE OF EXAM: CT CHEST/ABD/PELVIS WC Dictated By: SASCHA BRENNER MD INDICATION: ITS.REASON: 154.1 RECTAL CA COMPARISON: 08/29/13. 05/26/13 CT CHEST/ABD/PELVIS WC: CT scans with oral and IV contrast. Chest: There is a right port catheter. No evidence of a developing mass or acute infiltrate in either lung. No significant pleural effusion. No evidence of increasing adenopathy. IMPRESSION: No evidence of chest metastases. Abdomen/pelvis: There are bilateral ureteral stents. History of colon surgery and appendectomy. There is a left lower quadrant ostomy. No evidence of liver metastases or gallstones. Improved appearance of pancreas since previous CT. Spleen and bladder are grossly normal. No evidence of bowel obstruction. Table appearance the uterus. No evidence of ascites. No evidence of increasing adenopathy. IMPRESSION: Surgery and ureteral stents. Improved appearance of the pancreas. . Procedures Procedure Status Date Provider(s) CYSTOSCOPY AND TREATMENT completed 08/15/13 REYNA PATE MD CYSTOSCOPY & URETER CATHETER completed 08/15/13 REYNA PATE MD CYSTOSCOPY AND TREATMENT completed 08/15/13 REYNA PATE MD THER/PROPH/DIAG INJ IV PUSH completed 08/29/13 TX/PRO/DX INJ NEW DRUG ADDON completed 08/29/13 TX/PRO/DX INJ NEW DRUG ADDON completed 08/29/13 TX/PRO/DX INJ SAME DRUG PRINCIPAL DATABASE DEVELOPER completed 08/29/13 HYDRATE IV INFUSION ADD-ON completed 08/29/13 RPR S/N/AX/GEN/TRNK 2.5CM/< completed 10/10/13 DUSTIN MILES MD Encounters Encounter Location Date/Time Departed Emergency Room [facility] 10/18/13 11:25am Departed Emergency Room [facility] 10/10/13 8:36pm Registered [facility] 10/09/13 8:37am Registered Clinic [facility] 09/13/13 9:03am Registered [facility] 09/04/13 12:22pm Discharged Inpatient [facility] 08/29/13 3:12pm Departed Emergency Room [facility] 08/29/13 5:36am Registered [facility] 08/24/13 7:07am Registered [facility] 08/21/13 12:49pm Registered [facility] 08/21/13 9:03am Discharged Inpatient [facility] 08/15/13 8:45pm Registered Clinic [facility] 08/14/13 12:51pm Registered [facility] 08/14/13 10:46am Registered [facility] 08/09/13 6:49am Registered [facility] 07/31/13 9:09am Registered Clinic [facility] 07/26/13 10:13am Recent Diagnosis
--- OUTSIDE RECORDS SUMMARY | 2016-05-16 11:09 | XMS REPORT | Continuity of Care Document ---
Author Author [facility] Organization [facility] Address Unknown Phone Unavailable Care Team Providers Care Ferryboat Pilot Name Role Phone HAMILTON RECINOS DO Primary Care Physician [phone] Insurance Providers Payer Name Policy Number Subscriber Name Relationship [facility] Community Plan [id number] Luis M Berman 19 Self Advance Directives Directive Response Recorded Date/Time Advanced Directives Type None 08/29/13 4:00pm Ordered Resuscitation Status Full Code 06/19/13 10:41am Resuscitation Documents on File No 12/18/13 12:29pm Problems Medical Problems Problem Onset Date Status [...] Hours PRN PRN ORDERS 30 Days 11/02/13 Active Fentanyl 1 Patch TD Q3D 10 Qty 11/02/13 Active Gabapentin 300 Mg PO DAILY 11/20/13 Active Methimazole 60 Mg PO DAILY 12/19/13 Active Social History Social History Problem Response Recorded Date/Time Smoking Status Current every day smoker 08/29/2013 4:02pm When did patient START smoking? AGE 18 12/19/2013 8:00am Chewing Tobacco Status No 08/29/2013 1:04pm Hx Substance Use No 12/19/2013 8:00am Hx Alcohol Use No 12/19/2013 8:00am Has the pt used tobacco in the last 12 months Yes 12/19/2013 8:00am Query Response Start Date Stop Date Smoking Status Current every day smoker Hospital Discharge Instructions Instructions: Care Instructions: Reason for Hospitalization: low hemoglobin I was in the hospital because (patient own words): I WAS TOLD I WAS LOW ON BLOOD Discharge Diet: as per pre-hospitalization, continue current dietary supplement with meals Discharge Activity: as tolerated Follow Up Appointments: Dr. Recinos Wednesday or of next week with lab drawn before appointment Dr. Jarrell in 1-[address] Pate next wednesday Dr. Dudley in 1-[address] Lizarraga in 1 week Patient Instructions: NO OTHER TYLENOL PRODUCTS OTHER THAN NORCO Wound/Incision Care: Continue current wound dressing changes and care at home Notify Physician If: immediatly if abdominal pain, loose stools, rectal pain worsens, or if urine output decreases General Information: Set up home health before discharge for dressing changes and wound care Condition at time of discharge: Good Plan of Care Discharge Date 11/02/13 4:38pm Instructions/Education Provided Antibiotic-associated Colitis -- C difficile Anemia DI for Dehydration -- Adult Prescriptions See Medications Section Functional Status Query Response Date Recorded Physical Hygiene Self November 02, 2013 4:23pm Disabilities None August 29, 2013 3:16pm Ambulation Self August 29, 2013 1:04pm Mental Status Alert August 29, 2013 3:16pm Disabilities None August 29, 2013 3:16pm Physical Hygiene Self November 02, 2013 4:23pm Ambulation Self August 29, 2013 1:04pm Allergies, Adverse Reactions, Alerts Allergen Type Severity Reaction Status Last Updated No Known Allergies Active 10/10/13 Immunizations Name Given Type Hx Influenza Vaccination Y 11/2013 Historical Hx Pneumococcal Vaccination Y 2012 Historical Hx Influenza Vaccination Y 11/2013 Historical Vital Signs Acute Vital Signs Vital Response Date/Time Temperature (Fahrenheit) 97.9 deg F (96.8 - 99.1) Temperature (Calculated Celsius) 36.21695 degrees C (36.0 - 37.3) Temperature Source Temporal Pulse Rate (adult) 80 bpm (60 - 100) Respiratory Rate 15 breaths/min (10 - 20) O2 Sat by Pulse Oximetry 96 % (90 - 100) Oxygen Delivery Method Room Air Blood Pressure 140/88 mm Hg Blood Pressure Source Automatic Cuff Blood Pressure / Blood Pressure Source Automatic Cuff Height 5 ft 4.5 in Weight 119 lb Body Mass Index 20.0 kg/m^2 Results Test Source Date Result Interp. Ref. Range Comments Absolute Reticulocyte Count October 25, 2013 1:45pm 0.0382 T/MM3 N 0.0300-0.0900 Activated Partial Thromboplast Time November 08, 2013 4:00pm 37.7 SEC H 24-36 Alanine Aminotransferase (ALT/SGPT) December 19, 2013 7:26am 26 U/L N 9- 52 COMMENT SCU WILL CALL Albumin December 19, 2013 7:26am 3.5 G/DL N 3.5-5.0 COMMENT SCU WILL CALL Albumin/Globulin Ratio December 19, 2013 7:26am 0.9 RATIO L 1.1-2.2 COMMENT SCU WILL CALL Alcohol, Quantitative August 29, 2013 6:30pm <10 MG/DL - Alkaline Phosphatase December 19, 2013 7:26am 162 U/L H 38-126 COMMENT SCU WILL CALL Ammonia August 15, 2013 6:50pm < 9 UMOL/L L 9-33 COMMENT DO ON BLOOD DRAWN TODAYCOMMENT * & TSH RECEPTOR ANTIBODIES * Amylase Level December 08, 2013 12:01pm < 30 U/L L 30-110 Anion Gap December 19, 2013 7:26am 11 MEQ/L N 5-15 COMMENT SCU WILL CALL Anisocytosis October 30, 2013 4:44am 1+ - [...] 80- 100 Aspartate Amino Transf (AST/SGOT) December 19, 2013 7:26am 20 U/L N 14- 36 COMMENT SCU WILL CALL BUN/Creatinine Ratio December 19, 2013 7:26am 16 RATIO N 6-26 COMMENT SCU WILL CALL Band Neutrophils # December 14, 2013 8:55am 0.1 T/MM3 - Band Neutrophils % December 14, 2013 8:55am 2.0 % N 0-6 Basophils # (Auto) December 19, 2013 7:26am 0.1 T/MM3 N 0-0.2 COMMENT SCU WILL CALL Basophils # (Manual) October 26, 2013 8:10pm 0.0 T/MM3 N 0-0.2 Basophils % (Manual) October 26, 2013 8:10pm 0.0 % N 0-2 Basophils (%) (Auto) December 19, 2013 7:26am 1.2 % N 0-2 COMMENT SCU WILL CALL Beta HCG, Quantitative December 08, 2011 8:40pm < 2.39 UIU/ML - NON- INDIVIDUALS=0 - 4.83;SAMPLES BETWEEN 4.83 - 25 SHOULD BE RE-TESTED AFTER 48 HOURS IF IS SUSPECTED; GESTATION 1-10 WEEKS: 45-256,380; 11-15 WEEKS: 11,556-265,380; 16-22 WEEKS: 27,023-111,954; 23-40 WEEKS: 24,031-101,566 Blood Smear Pathologist Review October 25, 2013 1:45pm Sent for review - Blood Urea Nitrogen December 19, 2013 7:26am 16.0 MG/DL N 7-17 COMMENT SCU WILL CALL C-Reactive Protein December 08, 2013 12:01pm 34.4 MG/L H 0-9 C. difficile Toxin B Gene (PCR) October 28, 2013 11:25pm Positive H - Has specimen been collected/obtained? Y CA 125 Antigen February 20, 2013 3:04pm 11.6 U/ML N 0-35 Calcium Level December 19, 2013 7:26am 8.9 MG/DL N 8.4-10.2 COMMENT SCU WILL CALL Calculated Osmolality December 19, 2013 7:26am 274 MOSM/KG N 261-280 COMMENT SCU WILL CALL Carbon Dioxide Level December 19, 2013 7:26am 33 MEQ/L H 22-30 COMMENT SCU WILL CALL Carcinoembryonic Antigen October 25, 2013 9:35am 2.26 UG/L DN 0-3.0 Chemistry Specimen Hemolysis December 19, 2013 7:26am < 15 0-25 0-25: No Hemolysis.26-70: Slight [...] reported as: SENT OUT Chloride Level December 19, 2013 7:26am 98 MEQ/L N 98-107 COMMENT SCU WILL CALL Cholesterol Level August 16, 2013 4:35am 80 MG/DL L 132-199 Cholesterol/HDL Ratio August 16, 2013 4:35am 4.0 RATIO N 0-4.0 Coagulation Factor VII October 26, 2013 9:40am 64 % L - Factor VII performed at [facility], [address], [place] [address]Gspuhti Director Marlena Cottrell MD Conjugated Bilirubin July [...] 3:30pm < 0.2 NG/ML 0-3.4 Creatinine December 19, 2013 7:26am 1.0 MG/DL N 0.7-1.2 COMMENT SCU WILL CALL D-Dimer October 27, 2013 4:30am 758 NG/ML H 0-224 <224 NG/ML= PRESUMPTIVE NEGATIVE FOR PE OR DVT>224 NG/ML=ADDITIONAL EVALUATION FOR PE OR DVT RECOMMENDED Eosinophils # (Auto) December 19, 2013 7:26am 0.1 T/MM3 N 0-0.5 COMMENT SCU WILL CALL Eosinophils # (Manual) December 14, 2013 8:55am 0.1 T/MM3 N 0-0.5 Eosinophils % (Manual) December 14, 2013 8:55am 2.0 % N 0-4 Eosinophils (%) (Auto) December 19, 2013 7:26am 1.5 % N 0-4 COMMENT SCU WILL CALL Erythrocyte Sedimentation Rate November 02, 2013 4:37am [...] & TSH RECEPTOR ANTIBODIES * Globulin December 19, 2013 7:26am 3.7 G/DL H 2.4-3.6 COMMENT SCU WILL CALL Glomerular Filtration Rate Calc December 19, 2013 7:26am 59 - COMMENT SCU WILL CALL Glucometer June 20, 2013 6:29pm 108 mg/dL N 65-110 Glucose Level December 19, 2013 7:26am 106 MG/DL N 65-110 COMMENT SCU WILL CALL HDL Cholesterol Direct August 16, 2013 4:35am 20 MG/DL L 40-60 Haptoglobin October 25, 2013 1:45pm 329 mg/dL H - Haptoglobin performed at [facility], [address] [place], [place] [address]Qnktvwt Director Marlena Cottrell MD Hematocrit December 19, 2013 7:26am 37.6 % DN 36-46 COMMENT SCU WILL CALL Hemoglobin December 19, 2013 7:26am 11.9 GM/DL DL 12-16 COMMENT SCU WILL CALL Hemoglobin A1c June 22, 2013 4:48am 4.9 % L 6-7 <6.0 NON-DIABETIC RANGE6.0-7.0 ADA THERAPEUTIC RANGE >7.0 ACTION SUGGESTED Hypochromasia October 26, 2013 4:52am 1+ - Icterus Index December 19, 2013 7:26am < 2 0-7 COMMENT SCU WILL CALL Immature Granulocyte # (Auto) December 19, 2013 7:26am 0.01 T/MM3 N 0.00- 0.03 COMMENT SCU WILL CALL Immature Granulocyte % (Auto) December 19, 2013 7:26am 0.1 % N 0.0-0.5 COMMENT SCU WILL CALL Immature Reticulocyte Fraction October 25, 2013 1:45pm [...] 45.2 L 66-159 Lab Scanned Report December 18, 2013 7:50pm LAB TEST FORM REQUEST - Lactate Dehydrogenase December 18, 2013 9:45am 252 U/L L 313-618 Large Platelets April 21, 2013 9:00am Few - Lipase December 08, 2013 12:01pm 19 U/L L 23-300 Lymphocytes # (Auto) December 19, 2013 7:26am 1.2 T/MM3 N 1-4.8 COMMENT SCU WILL CALL Lymphocytes # (Manual) December 14, 2013 8:55am 1.5 T/MM3 N 1-4.8 Lymphocytes % (Manual) December 14, 2013 8:55am 22.0 % L 23-45 Lymphocytes (%) (Auto) December 19, 2013 7:26am 15.3 % L 23-45 COMMENT SCU WILL CALL Magnesium Level December 18, 2013 9:45am 1.4 MG/DL L 1.6-2.3 Mean Corpuscular Hemoglobin December 19, 2013 7:26am 29.3 UUG N 26-34 COMMENT SCU WILL CALL Mean Corpuscular Hemoglobin Concent December 19, 2013 7:26am 31.6 GM/DL N 31-37 COMMENT SCU WILL CALL Mean Corpuscular Volume December 19, 2013 7:26am 92.6 UM3 N 80-100 COMMENT SCU WILL CALL Mean Platelet Volume December 19, 2013 7:26am 9.5 UM3 N 9.4-12.4 COMMENT SCU WILL CALL Monocytes # (Auto) December 19, 2013 7:26am 0.5 T/MM3 N 0-0.8 COMMENT SCU WILL CALL Monocytes # (Manual) December 14, 2013 8:55am 0.4 T/MM3 N 0-0.8 Monocytes % (Manual) December 14, 2013 8:55am 5.0 % N 0-9.0 Monocytes (%) (Auto) December 19, 2013 7:26am 7.0 % N 0-9.0 COMMENT SCU WILL CALL Neutrophils # (Auto) December 19, 2013 7:26am 5.7 T/MM3 N 1.8-7.7 COMMENT SCU WILL CALL Neutrophils # (Manual) December 14, 2013 8:55am 4.8 T/MM3 N 1.8-7.7 Neutrophils % (Manual) December 14, 2013 8:55am 69.0 % H 33-66 Neutrophils (%) (Auto) December 19, 2013 7:26am 74.9 % H 33-66 COMMENT SCU WILL CALL Nucleated Red Blood Cells August 17, 2013 [...] 1:45pm 1.8 % H 0.6-1.7 Phosphorus Level June 21, 2013 4:35am 4.1 MG/DL N 2.5-4.5 Platelet Count December 19, 2013 7:26am 489 T/MM3 H 130-400 COMMENT SCU WILL CALL Platelet Evaluation (Diff) May 31, 2013 8:30am Few - Poikilocytosis October 26, 2013 4:52am 1+ - Potassium Level December 19, 2013 7:26am 3.2 MEQ/L L 3.6-5 COMMENT SCU WILL CALL Procalcitonin October 25, 2013 1:45pm 0.11 NG/ML - PCT </=0.5 ng/ mL - sepsis not likely;PCT >0.5 and </=2 ng/mL - sepsis possible; PCT >2 ng/mL - sepsis likely; PCT >/=10 ng/mL - systemic inflammatory response - sepsis or septic shock highly indicated. Prothromb Time International Ratio November 08, 2013 4:00pm 1.03 N 0.81 -1.09 THERAPUTIC RANGE=2.00-3.00 FOR ANTI-THROMBOSIS THERAPUTIC RANGE=2.50- 3.50 FOR IMPLANTED VALVE RDW Standard Deviation December 19, 2013 7:26am 52.1 FL H 36.9-50.2 COMMENT SCU WILL CALL Random Cortisol August 15, 2013 6:50pm 13.2 UG/DL - Before 10:00am: 4.46-22.7 ug/dL;After 5:00pm: 1.7-14.1 ug/dL Reactive Lymphocytes # October 30, 2013 4:44am 0.6 T/MM3 H 0-0 Reactive Lymphocytes % October 30, 2013 4:44am 5.0 % H 0-0 Red Blood Count December 19, 2013 7:26am 4.06 M/MM3 N 4.00-5.20 COMMENT SCU WILL CALL Reticulocyte Hgb Content (CHr) October 25, 2013 1:45pm 23.5 PG L 30.8- 36.6 Schistocytes May 31, 2013 8:30am 1+ - Sodium Level December 19, 2013 7:26am 142 MEQ/L N 134-144 COMMENT SCU WILL CALL Stone Constituent 1 October 31, 2013 8:30am See below - 90% Calcium phosphate (apatite) Stone Constituent 2 October 31, 2013 8:30am See below - 10% Calcium carbonateTest Performed by: [address] [address] Sheet Metal Technician: Sunny Rojas III, M.D. Stone Analysis performed at [facility], [address] [place] [address] Retort Furnace Operator Bob Cottrell MD Stone Source October 31, 2013 8:30am Kidney - Stone Analysis performed at [place], [place] [address]Medical Director Bob Cottrell, Corrected result; previously reported as KIDNEY on 10/31/13 at 11:56 by V/AUT --- 11/01/132128 --- STOS previously reported as: KIDNEY [place] [address] Retort Furnace Operator Bob Cottrell, Stone Weight October 31, 2013 8:30am 0.039 g - COMMENT BLADDER STONE Stool Occult Blood October 25, 2013 3:00pm Negative - Has specimen been collected/obtained? YCOMMENT x3 specimans, call MD if positive Stool for White Cells October 25, 2013 3:00pm Positive - Has specimen been collected/obtained? Y Tear Drop Cells May 10, 2013 8:50am 1+ - Thyroglobulin Antibody Screen August 15, 2013 6:50pm <3 IU/mL - Thyroglobulin Ab screen performed at [facility], [address] [place] [address] Retort Furnace Operator Marlena Cottrell MD Thyroid Stimulating Hormone (TSH) October 25, 2013 1:45pm < 0.02 MIU/L L 0.47-4.68 Thyroperoxidase Antibody August 15, 2013 11:10pm <3 IU/mL - Thyroperoxidase Ab (TPO) performed at [facility], [address] [place] [address] Retort Furnace Operator Marlena Cottrell MD Thyroxine (T4) August 15, 2013 6:50pm 10.9 ug/dL - Thyroxine (T4) performed at [facility], [address] [place] [address] Retort Furnace Operator Marlena Cottrell MD Total Bilirubin December 19, 2013 7:26am 0.50 MG/DL N 0.20-1.30 COMMENT SCU WILL CALL Total Creatine Kinase July 01, 2012 3:30pm < 20 U/L L 30-135 Total Iron Binding Capacity August 15, 2013 6:50pm 148 UG/DL L 261-497 COMMENT DO ON BLOOD DRAWN TODAYCOMMENT * & TSH RECEPTOR ANTIBODIES * Total Protein December 19, 2013 7:26am 7.2 G/DL N 6.3-8.2 COMMENT SCU WILL CALL Triglycerides Level August 29, 2013 6:30pm 143 MG/DL H 35-135 Triiodothyonine (T3) (JOSE MIGUEL) August 15, 2013 6:50pm 92 ng/dL - T3 Total performed at [facility], [address] [place], [place] [address]Medical Director Marlena Cottrell MD Troponin I October 25, 2013 1:45pm < 0.012 ng/ml 0-0.12 Turbidity December 19, 2013 7:26am < 20 0-20 COMMENT SCU WILL CALL Unconjugated Bilirubin July 22, 2012 12:50am 0.10 MG/DL N 0.00-1.10 Urine Amorphous Urates November 30, 2011 3:00pm Many - Has specimen been collected/obtained? Y Urine Bacteria December 08, 2013 12:02pm 2+ H - Urine Bilirubin December 08, 2013 12:02pm Negative - Urine Blood December 08, 2013 12:02pm 2+ H - Urine Collection Type December 08, 2013 12:02pm Cleancatch-midstream - Urine Color December 08, 2013 12:02pm Yellow - Urine Culture Indicated December 08, 2013 12:02pm Cult reflexed &setup - Urine Eosinophils October 30, 2013 1:51pm 0 % - Eosinophil Count, Urine performed at [facility], [address] [place] [address] Retort Furnace Operator Marlena Cottrell MD Urine Glucose (UA) December 08, 2013 12:02pm Negative - Urine Ketones December 08, 2013 12:02pm Negative - Urine Leukocyte Esterase December 08, 2013 12:02pm 2+ H - Urine Nitrite December 08, 2013 12:02pm Negative - Urine Osmolality October 30, 2013 1:51pm 366 mOsm/kg - Osmolality, [place] [address] Retort Furnace Operator Marlena Cottrell MD Urine Protein December 08, 2013 12:02pm 1+ H - Urine RBC December 08, 2013 12:02pm 30-50 /HPF H - Urine Random Creatinine October 30, 2013 1:51pm 19.7 MG/DL - Has specimen been collected/obtained? Y Urine Random Sodium October 30, 2013 1:51pm 166 MEQ/L H 30-90 Has specimen been collected/obtained? Y Urine Specific [place] December 08, 2013 12:02pm 1.020 - Urine Squamous Epithelial Cells December 08, 2013 12:02pm 0-5 - Urine Transitional Epithelial Cells August 29, 2013 6:30am 3-5 /HPF - Has specimen been collected/obtained? Y Urine Turbidity December 08, 2013 12:02pm Cloudy - Urine Urobilinogen December 08, 2013 12:02pm 0.2 EU/DL - Urine WBC December 08, 2013 12:02pm 30-50 /HPF H - Urine WBC Clumps August 29, 2013 6:30am None seen - Has specimen been collected/obtained? Y Urine Yeast October 30, 2013 1:51pm 1+ H - COMMENT please do urine microscopy.Has specimen been collected/obtained? Y Urine pH December 08, 2013 12:02pm 6.0 - VLDL Cholesterol August 16, 2013 4:35am 14.8 MG/DL N 0-28 Vancomycin Level Trough October 31, 2013 8:51am 11.71 UG/ML L 15-20 Venous Blood Lactate October 25, 2013 1:45pm 0.8 MMOL/L N 0.6-2.2 White Blood Count December 19, 2013 7:26am 7.5 T/MM3 N 4.5-11.0 COMMENT SCU WILL CALL Blood Culture Blood November 22, 2013 12:15pm NO GROWTH AFTER 5 DAYS Gram Stain Drainage-Surgical Wound December 08, 2011 9:00pm Gram Stain Rectum November 22, 2013 12:25pm Gram Stain Cervix October 22, 2011 9:25pm LORAINE Preparation Other December 05, 2013 11:30am Ova and Parasites Stool October 25, 2013 3:00pm Gram Stain Bladder October 31, 2013 8:04am Urine Culture Urine, Clean Catch-Midstream December 08, 2013 12:27pm Gram Positive Cocci Gram Stain Catheter (Line) Site December 03, 2011 5:55pm Name: LUIS M BERMAN Unit #: [id number] : [id number] Sex: F Loc / Svc: SCU DOS: 12/05/13 Signed Report #: [id number] DIAGNOSTIC IMAGING REPORT TYPE OF EXAM: RF FLUOROSCOPY CHARGE </=1 HR Dictated By: NORM PALMER MD INDICATION: ITS.REASON: BILAT STENT INSERTON RF KUB: Comparison: Renal ultrasound dated November 15, 2013 and fluoroscopy dated October 31, 2013 Findings: Six fluoroscopic spot images show wires in both renal collecting systems and the ureters followed images of the right distal ureter and advancement of a scope. Severely dilated right calyces are noted. Double-J stent is then placed. Impression: Fluoroscopy as above. . Procedures Procedure Status Date Provider(s) RPR S/N/AX/GEN/TRNK 2.5CM/< completed 10/10/13 DUSTIN MILES MD BLOOD TRANSFUSION SERVICE completed 10/25/13 HAMILTON RECINOS DO CYSTOSCOPY AND TREATMENT completed 10/25/13 REYNA PATE MD CYSTOSCOPY & URETER CATHETER completed 10/25/13 REYNA PATE MD CYSTOSCOPY AND TREATMENT completed 10/25/13 REYNA PATE MD CYSTOSCOPY AND TREATMENT completed 12/05/13 REYNA PATE MD CYSTOSCOPY AND TREATMENT completed 12/05/13 REYNA PATE MD CYSTO/URETERO STRICTURE TX completed 12/05/13 REYNA PATE MD Holmium laser cystolithotripsy completed 12/19/13 REYNA PATE MD Encounters Encounter Location Date/Time Registered [facility] 12/18/13 9:57am Registered [facility] 12/12/13 1:27pm Registered [facility] 12/08/13 12:20pm Registered [facility] 12/08/13 11:48am Registered [facility] 12/06/13 10:08am Registered [facility] 12/04/13 11:20am Registered [facility] 12/01/13 9:33am Registered [facility] 11/28/13 1:25pm Registered [facility] 11/23/13 8:34am Registered [facility] 11/22/13 12:39pm Registered [facility] 11/22/13 12:24pm Registered Clinic [facility] 11/17/13 10:26am Registered Clinic [facility] 11/15/13 1:39pm Discharged Recurring [facility] 11/14/13 8:42am Registered Clinic [facility] 11/08/13 4:28pm Registered Clinic [facility] 11/08/13 9:01am Registered Clinic [facility] 11/07/13 10:27am Discharged Inpatient [facility] 10/25/13 12:11pm Departed Emergency Room [facility] 10/18/13 11:25am Departed Emergency Room [facility] 10/10/13 8:36pm
--- OUTSIDE RECORDS SUMMARY | 2016-05-16 11:10 | XMS REPORT | Referral Summary ---
Author Author [facility] Organization [facility] Address Unknown Phone Unavailable Care Team Providers Care Core Shaper Sides Name Role Phone RamirezAramis Primary Care Physician [phone] Encounter VC Date(s): 03/03/16 - 03/03/16 [facility] [address] [place], [place] [address] Discharge Diagnosis: Kidney stone Discharge Disposition: 01-Home or Self Care Attending Physician: Franklyn Valenzuela MD Admitting Physician: Franklyn Valenzuela MD Vital Signs Most recent to 1 oldest [Reference Range]: Temperature Oral 36.8 degC [35.8-37.3 degC] (03/03/16 1:01 PM) Blood Pressure 140/90 mmHg [90-140/60-90 mmHg] (03/03/16 1:01 PM) Problem List Condition Effective Dates Status Health Status Informant Colostomy in Active patient place(Confirmed) Cancer(Confirmed)1 Active patient Tobacco Active patient user(Confirmed) 1HX RECTAL & COLON CANCER Allergies, Adverse Reactions, Alerts No Known Medication Allergies Medications cephalexin 500 mg oral tablet 1,000 mg 2 tabs, Oral, BID, # 28 tabs, 0 Refill(s) Start Date: 08/03/14 Stop Date: 08/10/14 Status: Ordered fentaNYL 100 mcg, Topical, q72hr, PATCH CHANGE EVERY 72 HOURS, 0 Refill(s) Start Date: 03/19/14 Status: Ordered gabapentin 100 mg, Oral, BID, 0 Refill(s) Start Date: 03/19/14 Status: Ordered methimazole 5 mg, Oral, Daily, 6 TABLETS ORAL DAILY, 0 Refill(s) Start Date: 03/19/14 Status: Ordered Percocet 10/325 oral tablet 1 tabs, Oral, q6hr, as needed for pain, # 10 tabs, 0 Refill(s) Start Date: 08/03/14 Status: Ordered Percocet 7.5/325 oral tablet tabs, Oral, q6hr, 0 Refill(s) Start Date: 11/16/14 Status: Ordered Protonix 20 mg, Oral, BID, 0 Refill(s) Start Date: 08/15/13 Status: Ordered Synthroid 75 mcg (0.075 mg) oral tablet 75 mcg 1 tabs, Oral, Daily, # 90 tabs, 0 Refill(s) Start Date: 04/10/15 Status: Ordered Zoloft 50 mg, Oral, Daily, 0 Refill(s) Start Date: 03/19/14 Status: Ordered Results No data available for this section Immunizations No data available for this section Procedures Procedure Date Related Diagnosis Body Site Revision Colostomy1 03/19/14 Abdominal hysterectomy section Colostomy2 Rectal3 1auto-populated from documented surgical case 2COLOSTOMY WITH REMOVAL OF COLON DUE TO CANCER 3DONE FOR CANCER 8-14 Social History Social History Type Response Smoking Status Former smoker; Type: Cigarettes; Tobacco use per day: Pack ; Number of years: 20 Assessment and Plan Extracted from: Title: Office Visit Note Author: Franklyn Valenzuela MD Date: 03/03/16 Assessment/Plan 1.Kidney stone Old nephrostomy tube removed and replaced with a new 24 [place]. 4 mL in balloon. Tube secured in usual fashion withMedipore tape. Next visit here in one month. Patient still refusesany urologic surgery.
--- OUTSIDE RECORDS SUMMARY | 2016-05-16 11:10 | XMS REPORT | Continuity of Care Document ---
Author Author [facility] Organization [facility] Address Unknown Phone Unavailable Care Team Providers Care Neonatal Intensive Care Unit Nurse Name Role Phone HAMILTON RECINOS DO Primary Care Physician [phone] Insurance Providers Payer Name Policy Number Subscriber Name Relationship [facility] Community Plan [id number] Luis M Aragon 19 Self Advance Directives Directive Response Recorded Date/Time Advanced Directives Type None 08/29/13 4:00pm Ordered Resuscitation Status Full Code 06/19/13 10:41am Chief Complaint and Reason for Visit Chief Complaint PANCREATITIS,ABD PAIN Reason for Visit Pancreatitis Constipation Problems Medical Problems Problem Onset Date Status Abdominal Pain Epigastric Unknown Active UTI Unknown Active MEDICATION AFFECT Unknown Active UTI Unknown Active Chronic pelvic pain Unknown Active Chronic rectal pain Unknown Active UTI Unknown Active Acute confusion Unknown Active Dehydration Unknown Active Hyperthyroidism Unknown Active Urinary tract infection Unknown Active Surgical Problems Problem Onset Date [...] Patch TD Q 3 D 08/29/13 Active Escitalopram Oxalate 10 Mg PO DAILY 08/29/13 Active Lisinopril 5 Mg PO DAILY 08/29/13 09/01/13 Discontinued Social History Social History Problem Response Recorded Date/Time Smoking Status Current every day smoker 08/29/2013 4:02pm Chewing Tobacco Status No 08/29/2013 1:04pm Hx Substance Use No 08/29/2013 1:04pm Hx Alcohol Use No 08/29/2013 1:04pm Has the pt used tobacco in the [...] IN 1 WEEK. CBC, CMP, MG AT [facility] BEFORE APPOINTMENT WITH DR RECINOS.-- DR. RECINOS APPOINTMENT ON 09/08/13 AT 10:15 AM--PHONE # [phone] *FOLLOW UP WITH DR NAYLOR--- APPOINTMENT WITH DR. ANNI NAYLOR, SCHEDULED ON 09/08/13 *FOLLOW UP WITH DR MAR APPOINTMENT MADE ON 10/03/13 AT 2:30PM [phone]. TSH AND FREE T4 LAB DRAWN THAT DAY AT [facility] AND SENT TO DR MAR. Patient Instructions: RETURN TO CARE IMMEDIATELY IF ABDOMINAL PAIN, CONSTIPATION SHOULD WORSEN. General Information: *CBC, CMP, MG IN ONE WEEK AT [facility] BEFORE APPOINTMENT WITH DR RECINOS. *PER DR RECINOS, WE ARE HOLDING YOUR THYROID ABLATION FOR NOW. New Scripts Called to Pharmacy: 1) METHIMAZOLE 10MG BY MOUTH DAILY 2)MAGNESIUM OXIDE 400MG BY MOUTH TWICE A DAY, HOLD FOR DIARRHEA 3)PROTONIX 40MG BY MOUTH DAILY 4)MIRALAX 17MG IN 8OZ OF WATER DAILY, HOLD FOR LOOSE STOOLS 5)METAMUCIL ONE PACKET IN 8OZ OF WATER DAILY,, HOLD FOR LOOSE STOOLS. 6) HOLD PREVIOUS HOME LISINOPRIL 5MG FOR NOW. Condition at time of discharge: Good Care Plan Discharge Patient: Goal: Pain is contolled Patient Instructions: see patient instructions Call your Surgeon if you have: 1.Chest pain, difficulty breathing, fever>100.5 degrees, chills, heart rate >100, confusion, or persistent nausea/vomitting. 2.Severe pain, swelling, redness, or warmth in either of your legs. 3.During office hours, call [phone] 4. After hours, please call [facility] at [phone], and have the composition board press operator page your Surgeon IN THE EVENT OF AN EMERGENCY, seek medical care at the nearest Emergency Room Condition at time of discharge: Good Care Plan Discharge Patient: Goal: Understand discharge plan Patient Instructions: see patient instructions Plan of Care Discharge Date 09/01/13 2:41pm Disposition 01 DISCHARGED HOME, SELF-CARE Instructions/Education Provided DI for Pancreatitis Prescriptions See Medications Section Functional Status Query Response Date Recorded Physical Hygiene Self August 29, 2013 1:04pm Disabilities None August 29, 2013 3:16pm Devices Used Glasses September 01, 2013 1:52pm Dressing Self September 01, 2013 1:52pm Ambulation Self August 29, 2013 1:04pm Diet Self September 01, 2013 1:52pm Mental Status Alert August 29, 2013 3:16pm Disabilities None August 29, 2013 3:16pm Devices Used Glasses September 01, 2013 1:52pm Physical Hygiene Self August 29, 2013 1:04pm Dressing Self September 01, 2013 1:52pm Ambulation Self August 29, 2013 1:04pm Diet Self September 01, 2013 1:52pm Allergies, Adverse Reactions, Alerts Allergen Type Severity Reaction Status Last Updated No Known Allergies Active 08/29/13 Immunizations Name Given Type Hx Influenza Vaccination Y Jan Historical Hx Pneumococcal Vaccination Y Jan Historical Hx Influenza Vaccination Y Jan Historical Vital Signs Acute Vital Signs Vital Response Date/Time Temperature (Fahrenheit) 97.4 deg F (96.8 - 99.1) Temperature (Calculated Celsius) 36.57858 degrees C (36.0 - 37.3) Temperature Source Oral Pulse Rate (adult) 79 bpm (60 - 100) Respiratory Rate 12 breaths/min (10 - 20) O2 Sat by Pulse Oximetry 98 % (90 - 100) Blood Pressure 157/86 mm Hg Blood Pressure Source Automatic Cuff Height 5 ft 3.5 in Weight 108 lb Body Mass Index 18.0 kg/m^2 Results Test Source Date Result Interp. Ref. Range Comments Absolute Reticulocyte Count August 15, 2013 6:50pm 0.0229 T/MM3 L 0.0300- 0.0900 Activated Partial Thromboplast Time August 15, 2013 6:50pm 41.1 SEC H 24- 36 Alanine Aminotransferase (ALT/SGPT) September 01, 2013 4:38am 18 U/L N 9-52 Albumin September 01, 2013 4:38am 2.3 G/DL L 3.5-5.0 Albumin/Globulin Ratio September 01, 2013 4:38am 0.6 RATIO L 1.1-2.2 Alcohol, Quantitative August 29, 2013 6:30pm <10 MG/DL - Alkaline Phosphatase September 01, 2013 4:38am 176 U/L H 38-126 Ammonia August 15, 2013 6:50pm < 9 UMOL/L L 9-33 COMMENT DO ON BLOOD DRAWN TODAYCOMMENT * & TSH RECEPTOR ANTIBODIES * Amylase Level August 29, 2013 1:45pm 46 U/L N 30-110 Anion Gap September 01, 2013 4:38am 7 MEQ/L N 5-15 Anisocytosis August 21, 2013 [...] N 80- 100 Aspartate Amino Transf (AST/SGOT) September 01, 2013 4:38am 19 U/L N 14-36 BUN/Creatinine Ratio September 01, 2013 4:38am 10 RATIO N 6-26 Band Neutrophils # August 21, 2013 8:50am 0.1 T/MM3 - Band Neutrophils % August 21, 2013 8:50am 1.0 % N 0-6 Basophils # (Auto) September 01, 2013 4:38am 0.0 T/MM3 N 0-0.2 Basophils # (Manual) August 15, 2013 6:50pm 0.0 T/MM3 N 0-0.2 Basophils % (Manual) August 15, 2013 6:50pm 0.0 % N 0-2 Basophils (%) (Auto) September 01, 2013 4:38am 0.7 % N 0-2 Beta HCG, Quantitative December 08, 2011 8:40pm < 2.39 UIU/ML - NON- INDIVIDUALS=0 - 4.83;SAMPLES BETWEEN 4.83 - 25 SHOULD BE RE-TESTED AFTER 48 HOURS IF IS SUSPECTED; GESTATION 1-10 WEEKS: 45-256,380; 11-15 WEEKS: 11,556-265,380; 16-22 WEEKS: 27,023-111,954; 23-40 WEEKS: 24,031-101,566 Blood Smear Pathologist Review August 15, 2013 6:50pm Sent for review - COMMENT * AND THYROID PERAXIDOSE ANTIBODIES * Blood Urea Nitrogen September 01, 2013 4:38am 6.0 MG/DL L 7-17 C-Reactive Protein August 31, 2013 4:33am 9.4 MG/L H 0-9 C. difficile Toxin B Gene (PCR) August 21, 2013 12:55pm Negative - If Toxin A is clinically indicated, treat accordingly. CA 125 Antigen February 20, 2013 3:04pm 11.6 U/ML N 0-35 Calcium Level September 01, 2013 4:38am 8.6 MG/DL N 8.4-10.2 Calculated Osmolality September 01, 2013 4:38am 270 MOSM/KG N 261-280 Carbon Dioxide Level September 01, 2013 4:38am 24 MEQ/L N 22-30 Carcinoembryonic Antigen March 10, 2013 8:25am 5.90 UG/L H 0-3.0 Chemistry Specimen Hemolysis September 01, 2013 4:38am < 15 0-25 0-25: No Hemolysis.26-70: Slight [...] previously reported as: SENT OUT Chloride Level September 01, 2013 4:38am 111 MEQ/L H 98-107 Cholesterol Level August 16, 2013 4:35am [...] 2012 3:30pm < 0.2 NG/ML 0-3.4 Creatinine September 01, 2013 4:38am 0.6 MG/DL L 0.7-1.2 Eosinophils # (Auto) September 01, 2013 4:38am 0.3 T/MM3 N 0-0.5 Eosinophils # (Manual) August 21, 2013 8:50am 0.1 T/MM3 N 0-0.5 Eosinophils % (Manual) August 21, 2013 8:50am 1.0 % N 0-4 Eosinophils (%) (Auto) September 01, 2013 4:38am 7.0 % H 0-4 Erythrocyte Sedimentation Rate August 31, 2013 [...] * & TSH RECEPTOR ANTIBODIES * Globulin September 01, 2013 4:38am 3.7 G/DL H 2.4-3.6 Glomerular Filtration Rate Calc September 01, 2013 4:38am 108 - Glucometer June 20, 2013 6:29pm 108 mg/dL N 65-110 Glucose Level September 01, 2013 4:38am 87 MG/DL N 65-110 HDL Cholesterol Direct August 16, 2013 4:35am 20 MG/DL L 40-60 Haptoglobin August 15, 2013 6:50pm 296 mg/dL H - Haptoglobin performed at [facility], [address] [facility], [place] [id number] Director Marlena Cottrell MD Hematocrit September 01, 2013 4:38am 28.6 % L 36-46 Hemoglobin September 01, 2013 4:38am 9.0 GM/DL L 12-16 Hemoglobin A1c June 22, 2013 4:48am 4.9 % L 6-7 <6.0 NON-DIABETIC RANGE6.0-7.0 ADA THERAPEUTIC RANGE >7.0 ACTION SUGGESTED Hypochromasia August 21, 2013 8:50am 1+ - Icterus Index September 01, 2013 4:38am < 2 0-7 Immature Granulocyte # (Auto) September 01, 2013 4:38am 0.00 T/MM3 N 0.00- 0.03 Immature Granulocyte % (Auto) September 01, 2013 4:38am 0.0 % N 0.0-0.5 Immature Reticulocyte Fraction August 15, 2013 6:50pm 12.6 % N 3.3-14.5 Immunoglobulin G August 01, 2012 4:58am 860.82 MG/DL N 700-1600 COMMENT do on blood already drawn Iron Level August 15, 2013 6:50pm 15 UG/DL L 37-170 COMMENT DO ON BLOOD DRAWN TODAYCOMMENT * & TSH RECEPTOR ANTIBODIES * LDL Cholesterol, Calculated August 16, 2013 4:35am 45.2 L 66-159 Lab Scanned Report August 28, 2013 6:57pm LAB TEST FORM REQUEST [id number] - Lactate Dehydrogenase August 28, 2013 9:01am 247 U/L L 313-618 Large Platelets April 21, 2013 9:00am Few - Lipase August 29, 2013 1:45pm 452 U/L H 23-300 Lymphocytes # (Auto) September 01, 2013 4:38am 0.8 T/MM3 L 1-4.8 Lymphocytes # (Manual) August 21, 2013 8:50am 1.1 T/MM3 N 1-4.8 Lymphocytes % (Manual) August 21, 2013 8:50am 18.0 % L 23-45 Lymphocytes (%) (Auto) September 01, 2013 4:38am 18.4 % L 23-45 Magnesium Level September 01, 2013 4:38am 1.7 MG/DL N 1.6-2.3 Mean Corpuscular Hemoglobin September 01, 2013 4:38am 28.1 UUG N 26-34 Mean Corpuscular Hemoglobin Concent September 01, 2013 4:38am 31.5 GM/DL N 31 -37 Mean Corpuscular Volume September 01, 2013 4:38am 89.4 UM3 N 80-100 Mean Platelet Volume September 01, 2013 4:38am 10.0 UM3 N 9.4-12.4 Monocytes # (Auto) September 01, 2013 4:38am 0.5 T/MM3 N 0-0.8 Monocytes # (Manual) August 21, 2013 8:50am 0.4 T/MM3 N 0-0.8 Monocytes % (Manual) August 21, 2013 8:50am 6.0 % N 0-9.0 Monocytes (%) (Auto) September 01, 2013 4:38am 11.1 % H 0-9.0 Neutrophils # (Auto) September 01, 2013 4:38am 2.8 T/MM3 N 1.8-7.7 Neutrophils # (Manual) August 21, 2013 8:50am 4.4 T/MM3 N 1.8-7.7 Neutrophils % (Manual) August 21, 2013 8:50am 74.0 % H 33-66 Neutrophils (%) (Auto) September 01, 2013 4:38am 62.8 % N 33-66 Nucleated Red Blood Cells [...] 4:35am 4.1 MG/DL N 2.5-4.5 Platelet Count September 01, 2013 4:38am 373 T/MM3 N 130-400 Platelet Evaluation (Diff) May 31, 2013 8:30am Few - Poikilocytosis August 17, 2013 6:04am 1+ - Potassium Level September 01, 2013 4:38am 3.9 MEQ/L N 3.6-5 Prothromb Time International Ratio August 15, 2013 6:50pm 1.66 H 0.81- 1.09 THERAPUTIC RANGE=2.00-3.00 FOR ANTI-THROMBOSIS THERAPUTIC RANGE=2.50- 3.50 FOR IMPLANTED VALVE RDW Standard Deviation September 01, 2013 4:38am 47.9 FL N 36.9-50.2 Random Cortisol August 15, 2013 6:50pm 13.2 UG/DL - Before 10:00am: 4.46-22.7 ug/dL;After 5:00pm: 1.7-14.1 ug/dL Reactive Lymphocytes # April 21, 2013 9:00am 0.2 T/MM3 H 0-0 Reactive Lymphocytes % April 21, 2013 9:00am 3.0 % H 0-0 Red Blood Count September 01, 2013 4:38am 3.20 M/MM3 L 4.00-5.20 Reticulocyte Hgb Content (CHr) August 15, 2013 6:50pm 32.0 PG N 30.8-36.6 Schistocytes May 31, 2013 8:30am 1+ - Sodium Level September 01, 2013 4:38am 142 MEQ/L N 134-144 Stool Occult Blood August 18, 2013 6:30am Negative - Has specimen been collected/obtained? YCOMMENT #3 OF 3 Stool for White Cells August 21, 2013 12:55pm Negative - Tear Drop Cells May 10, 2013 8:50am 1+ - Thyroglobulin Antibody Screen August 15, 2013 6:50pm <3 IU/mL - Thyroglobulin Ab screen performed at [facility], [address] [place] [address] Rail Grinder Marlena Cottrell MD Thyroid Stimulating Hormone (TSH) August 15, 2013 6:50pm < 0.02 MIU/L L 0.47-4.68 COMMENT DO ON BLOOD DRAWN TODAYCOMMENT * & TSH RECEPTOR ANTIBODIES * Thyroperoxidase Antibody August 15, 2013 11:10pm <3 IU/mL - Thyroperoxidase Ab (TPO) performed at [facility], [address] [place] [address] Rail Grinder Marlena Cottrell MD Thyroxine (T4) August 15, 2013 6:50pm 10.9 ug/dL - Thyroxine (T4) performed at [facility], [address] [place] [address] Rail Grinder Marlena Cottrell MD Total Bilirubin September 01, 2013 4:38am 0.10 MG/DL L 0.20-1.30 Total Creatine Kinase July 01, 2012 3:30pm < 20 U/L L 30-135 Total Iron Binding Capacity August 15, 2013 6:50pm 148 UG/DL L 261-497 COMMENT DO ON BLOOD DRAWN TODAYCOMMENT * & TSH RECEPTOR ANTIBODIES * Total Protein September 01, 2013 4:38am 6.0 G/DL L 6.3-8.2 Triglycerides Level August 29, 2013 6:30pm 143 MG/DL H 35-135 Triiodothyonine (T3) (JOSE MIGUEL) August 15, 2013 6:50pm 92 ng/dL - T3 Total performed at [facility], [address] [place] [id number] Director Marlena Cottrell MD Troponin I August 29, 2013 6:30pm < 0.012 ng/ml 0-0.12 Turbidity September 01, 2013 4:38am < 20 0-20 Unconjugated Bilirubin July 22, 2012 12:50am 0.10 MG/DL N 0.00-1.10 Urine Amorphous Urates November 30, 2011 3:00pm Many - Has specimen been collected/obtained? Y Urine Bacteria August 29, 2013 6:30am 1+ H - Has specimen been collected/ obtained? Y Urine Bilirubin August 29, 2013 6:30am Negative - Has specimen been collected/obtained? Y Urine Blood August 29, 2013 6:30am 3+ H - Has specimen been collected/ obtained? Y Urine Collection Type August 29, 2013 6:30am Cleancatch-midstream - Has specimen been collected/obtained? Y Urine Color August 29, 2013 6:30am Yellow - Has specimen been collected /obtained? Y Urine Culture Indicated August 29, 2013 6:30am Cult ordered & setup - Has specimen been collected/obtained? Y Urine Glucose (UA) August 29, 2013 6:30am Negative - Has specimen been collected/obtained? Y Urine Ketones August 29, 2013 6:30am Negative - Has specimen been collected/obtained? Y Urine Leukocyte Esterase August 29, 2013 6:30am 3+ H - Has specimen been collected/obtained? Y Urine Nitrite August 29, 2013 6:30am Negative - Has specimen been collected/obtained? Y Urine Osmolality August 15, 2013 8:00pm 114 mOsm/kg - Osmolality, Urine performed at [address] Rail Grinder Marlena Cottrell MD Urine Protein August 29, 2013 6:30am 1+ H - Has specimen been collected/ obtained? Y Urine RBC August 29, 2013 6:30am 50-200 /HPF H - Has specimen been collected/obtained? Y Urine Random Creatinine August 15, 2013 8:00pm 20.9 MG/DL - Has specimen been collected/obtained? Y Urine Random Sodium August 15, 2013 8:00pm 18 MEQ/L L 30-90 Has specimen been collected/obtained? Y Urine Specific [place] August 29, 2013 6:30am 1.015 - Has specimen been collected/obtained? Y Urine Squamous Epithelial Cells August 21, 2013 12:52pm 0-5 - Urine Transitional Epithelial Cells August 29, 2013 6:30am 3-5 /HPF - Has specimen been collected/obtained? Y Urine Turbidity August 29, 2013 6:30am Sl cloudy - Has specimen been collected/obtained? Y Urine Urobilinogen August 29, 2013 6:30am 0.2 EU/DL - Has specimen been collected/obtained? Y Urine WBC August 29, 2013 6:30am 50-200 /HPF H - Has specimen been collected/obtained? Y Urine WBC Clumps August 29, 2013 6:30am None seen - Has specimen been collected/obtained? Y Urine Yeast August 29, 2013 6:30am 1+ H - BUDDING YEAST OBSERVED Urine pH August 29, 2013 6:30am 6.0 - Has specimen been collected/ obtained? Y VLDL Cholesterol August 16, 2013 4:35am 14.8 MG/DL N 0-28 Vancomycin Level Trough July 03, 2012 8:45am 6.95 UG/ML L 15-20 COMMENT PRIOR TO VANCO DOSE SCHEDULED FOR 0900 Venous Blood Lactate August 31, 2013 4:33am 0.6 MMOL/L N 0.6-2.2 White Blood Count September 01, 2013 4:38am 4.4 T/MM3 L 4.5-11.0 Blood Culture Blood August 15, 2013 11:10pm [...] Viral Culture Rectal/Vaginal July 26, 2013 10:00am Procedures Procedure Status Date Provider(s) CYSTOSCOPY AND TREATMENT completed 08/15/13 REYNA PATE MD CYSTOSCOPY & URETER CATHETER completed 08/15/13 REYNA PATE MD CYSTOSCOPY AND TREATMENT completed 08/15/13 REYNA PATE MD THER/PROPH/DIAG INJ IV PUSH completed 08/29/13 TX/PRO/DX INJ NEW DRUG ADDON completed 08/29/13 TX/PRO/DX INJ NEW DRUG ADDON completed 08/29/13 TX/PRO/DX INJ SAME DRUG ELECTRICAL SYSTEM SPECIALIST completed 08/29/13 HYDRATE IV INFUSION ADD-ON completed 08/29/13 Encounters Encounter Location Date/Time Discharged Inpatient [facility] 08/29/13 3:12pm Departed Emergency Room [facility] 08/29/13 5:36am Registered [facility] 08/28/13 9:05am Registered [facility] 08/24/13 7:07am Registered [facility] 08/21/13 12:49pm Registered [facility] 08/21/13 9:03am Discharged Inpatient [facility] 08/15/13 8:45pm Registered [facility] 08/14/13 12:51pm Registered [facility] 08/14/13 10:46am Registered Clinic [facility] 08/09/13 6:49am Registered Clinic [facility] 07/31/13 9:09am Registered Clinic [facility] 07/26/13 10:13am Registered Clinic [facility] 07/19/13 10:31am Registered Clinic [facility] 07/18/13 11:35am Registered Clinic [facility] 07/18/13 9:09am Discharged Recurring [facility] 07/07/13 10:00am Registered Clinic [facility] 06/26/13 8:37am Discharged Inpatient [facility] 06/19/13 10:10am Registered Clinic [facility] 06/14/13 8:34am Registered [facility] 06/12/13 10:07am Registered [facility] 06/12/13 10:03am
--- OUTSIDE RECORDS SUMMARY | 2016-05-16 11:12 | XMS REPORT | Continuity of Care Document ---
Author Author [facility] Organization [facility] Address Unknown Phone Unavailable Support Name Relationship Address Phone JUNE, ELINOR Erwin DO Caregiver [address] [place] [address] Unavailable HAMILTON RECINOS DO Caregiver [address] [place] [address] Unavailable DAVE WREN Next Of Kin [address] [place] [address] Insurance Providers Guarantor Luis M Aragon Address [address] [place] [address] C Email [email or web address] Payer Medicaid Policy Number [id number] Subscriber's Name Luis M Aragon Relationship 18 Self Effective Date 16 Expiration Date 16 Payer Medicare Policy Number [id number] Subscriber's Name MaheshLuis M M Relationship 18 Self Effective Date 14 Advance Directives Directive Response Recorded Date/Time Advanced Directives Type None 08/29/13 4:00pm Ordered Resuscitation Status Full Code 06/19/13 10:41am Chief Complaint and Reason for Visit Chief Complaint Acute Medical Problem Reason for Visit Attention to nephrostomy Problems Active Problems Medical Problem Onset Date Status Abdominal Pain Epigastric Unknown Acute Abdominal cramping, bilateral lower quadrant Unknown Acute Abdominal pain Unknown Acute Acute confusion Unknown Acute Acute renal failure Unknown Acute Anemia Unknown Chronic Anxiety and depression Unknown Chronic Back pain Unknown Acute C. difficile diarrhea Unknown Chronic Chronic pelvic pain Unknown Acute Chronic rectal pain Unknown Acute Colon cancer 12/29/2013 Acute Colon cancer Unknown Acute Colostomy in place Unknown Chronic Complication of nephrostomy Unknown Acute Constipation Unknown Acute Dehydration Unknown Acute Depression Unknown Chronic Flank pain Unknown Acute Flank pain Unknown Acute Flank pain Unknown Acute Flank pain Unknown Acute GERD (gastroesophageal reflux disease) Unknown Chronic Generalized pain Unknown Acute HTN (hypertension) Unknown Chronic HTN (hypertension) Unknown Chronic Hemorrhage from nephrostomy tube Unknown Acute History of malignant neoplasm of colorectal region Unknown Chronic History of malignant neoplasm of colorectal region Unknown Chronic History of malignant neoplasm of colorectal region Unknown Resolved Hx of Clostridium difficile infection Unknown Chronic Hx of deep venous thrombosis Unknown Resolved Hx of intestinal obstruction Unknown Resolved Hyperosmolality with hypernatremia Unknown Acute Hyperthyroidism Unknown Chronic Hypokalemia Unknown Acute Hypomagnesemia Unknown Acute Hypothyroidism Unknown Chronic Left flank pain Unknown Acute Loose stools Unknown Acute MEDICATION AFFECT Unknown Acute Narcotic dependence Unknown Nausea Unknown Acute Nephrostomy complication Unknown Acute Nephrostomy tube bleed Unknown Acute On anticoagulant therapy Unknown Acute Pain Unknown Acute Pain of metastatic malignancy Unknown Chronic Pancreatitis Unknown Acute Protein-calorie malnutrition, mild Unknown Acute Pyelonephritis Unknown Acute Seasonal allergies Unknown Chronic Skin breakdown Unknown Acute Small bowel obstruction Unknown Acute Small bowel obstruction 12/29/2013 Acute Small bowel obstruction Unknown Acute Small bowel obstruction Unknown Acute Stomal bleeding Unknown Acute Tobacco dependence Unknown Chronic UTI Unknown Acute UTI Unknown Acute UTI Unknown Chronic UTI Unknown Acute UTI (lower urinary tract infection) Unknown Acute UTI (lower urinary tract infection) Unknown Acute UTI (urinary tract infection) Unknown Acute UTI (urinary tract infection) Unknown Acute Urinary tract infection Unknown Acute Urinary tract infection Unknown Acute Urinary tract infection Unknown Acute Urinary tract infection Unknown Acute Urinary tract infection Unknown Acute Urinary tract infection Unknown Acute VTE (venous thromboembolism) 04/26/2014 Acute Surgical Problem Onset Date Status Constipation Unknown Acute H/O nephrostomy Unknown Chronic Nonhealing surgical wound Unknown Chronic Pancreatitis Unknown Acute Past Problems Medical Problem Onset Date Abdominal cramping Unknown Abdominal cramping, bilateral lower quadrant Unknown Abdominal pain Unknown Abdominal pain Unknown Abdominal pain Unknown Attention to nephrostomy Unknown C. difficile colitis Unknown Clostridium difficile colitis Unknown Diarrhea Unknown Hematuria Unknown Loose stools Unknown Narcotic habituation, continuous Unknown Nausea Unknown Near syncope Unknown Nephrostomy tube displaced Unknown UTI (urinary tract infection) Unknown UTI (urinary tract infection) Unknown Volume depletion Unknown Medications Current Home Medications Medication Dose Units Route Directions Days Qty Instructions Start Date Fentanyl (Fentanyl 100 Mcg/Hr) 1 Each Patch.td72 1 Patch Transderm Every 3 Days 07/29/15 Fluticasone Propionate (Fluticasone Prop 50 Mcg/Actuation Nasal Palmetto) 120 [place]/16 G Palmetto 1 [place] Each Nostril Daily 01/17/16 Gabapentin 300 Mg Capsule 300 Mg Oral Twice A Day 11/20/13 Levothyroxine Sodium (Synthroid) 75 Mcg Tablet 75 Mcg Oral Before Breakfast 07/06/15 Metronidazole (Flagyl) 500 Mg Tablet 500 Mg Oral Q8h @ 0100/0900/1700 14 Days 42 Tablet Take 1 tablet, by mouth, every 8 hours. 02/09/16 Omeprazole 20 Mg Capsule.dr 20 Mg Oral Daily 07/03/14 Oxycodone Hcl/Acetaminophen (Oxycodone-Acetaminophen 5-325) 5-325 Tablet 1 Tab Oral Every 6 Hours as needed for Pain 02/07/16 Sertraline Hcl (Sertraline) 50 Mg Tablet 100 Mg Oral Twice A Day 07/29/15 Trazodone Hcl 50 Mg Tablet 50 Mg Oral Bedtime as needed for Insomnia 07/06/15 Past Home Medications Medication Directions Ordered Status Acetaminophen (Tylenol Extra Strength) 500 Mg Tablet, 2 Tab Oral Every 6 Hours as needed for Pain 10/18/13 Discontinued Acetaminophen/Hydrocodone Bitart ([place] 10-325 Tablet) 1 Tab Tablet, 1-2 Tab Oral Every 4 Hours as needed for Breakthrough Pain 11/02/13 Discontinued Ciprofloxacin 500 Mg/5 Ml Harleen.mc.rec, 500 Mg Oral Twice A Day 10/18/13 Discontinued Ciprofloxacin Hcl (Cipro) 500 Mg Tablet, 500 Mg Oral Twice A Day 08/29/13 Discontinued Ciprofloxacin Hcl (Cipro) 500 Mg Tablet, 500 Mg Oral Twice A Day 12/08/11 Discontinued Escitalopram Oxalate (Lexapro) 5 Mg Tablet, 10 Mg Oral Daily 05/14/13 Discontinued Fentanyl (Fentanyl 75 Mcg/Hr) 1 Patch .72 H Patch.td72, 1 Patch Transderm Q 3 D 08/29/13 Discontinued Gabapentin 100 Mg Capsule, 100 Mg Oral Twice A Day 05/14/13 Discontinued Gabapentin , Twice A Day 06/26/12 Discontinued Hydrocodone Bit/Acetaminophen (Lortab 10) 1 Udtab Tablet, 1 Udtab Oral Every 4 Hours 04/21/13 Discontinued Hydrocodone Bit/Acetaminophen (Hydrocodone-Apap 10-500 Tab) 1 Tab Tablet, 1 Tab Oral As Needed 01/02/13 Discontinued Hydrocodone Bit/Acetaminophen (Lortab 10) 1 Udtab Tablet, 1 Udtab Oral As Needed 06/26/12 Discontinued Ibuprofen (Motrin) 200 Mg Tablet, 200 Mg Oral As Needed 10/22/11 Discontinued Levofloxacin 500 Mg Tablet, 500 Mg Oral Daily 07/01/12 Discontinued Lisinopril 5 Mg Tablet, 5 Mg Oral Daily 08/29/13 Discontinued Lisinopril 20 Mg Tablet, 20 Mg Oral Daily 07/01/12 Discontinued Lisinopril , 06/26/12 Discontinued Loperamide Hcl (Imodium A-D) 1 Mg/7.5 Ml Liquid, 2 Mg Oral Every 6 Hours as needed for Prn Orders 11/02/13 Discontinued Methimazole 10 Mg Tablet, 2 Tab Oral Daily 07/03/14 Discontinued Methimazole 10 Mg Tablet, 60 Mg Oral Daily 12/19/13 Discontinued Methimazole 5 Mg Tablet, 5 Mg Oral Daily 10/18/13 Discontinued Metronidazole 500 Mg Tablet, 500 Mg Oral Three Times A Day 07/07/12 Discontinued Ondansetron (Zofran Odt) 4 Mg/Udtablet Tab.rapdis, 4 Mg Oral As Needed Discontinued Pantoprazole Sodium (Protonix) 20 Mg Tablet, 20 Mg Oral Before Breakfast Discontinued Prochlorperazine , 06/26/12 Discontinued Tramadol Hcl 50 Mg Tablet, 1 Tab Oral Every 6 Hours as needed for Pain Discontinued Tramadol Hcl 50 Mg Tablet, 50 Mg Oral As Needed 07/01/12 Discontinued Social History Social History Problem Response Recorded Date/Time Onset Date Status Chewing Tobacco Status No 08/29/2013 1:04pm Not Applicable Not Applicable Hx Substance Use No 04/18/2016 11:34pm Not Applicable Not Applicable Hx Alcohol Use No 04/18/2016 11:34pm Not Applicable Not Applicable Has the pt used tobacco in the last 12 months Yes 02/08/2016 1:08am Not Applicable Not Applicable Quit (MM/YYYY) 02/201209/21/2015 3:08pm Not Applicable Not Applicable Tobacco Usage none 09/21/2015 3:08pm Not Applicable Not Applicable Query Response Start Date Stop Date Smoking Status Current every day smoker Hospital Discharge Instructions No hospital discharge instructions. Plan of Care Discharge Date 04/19/16 1:45am Disposition 01 DISCHARGED HOME, SELF-CARE Condition at Discharge Stable Instructions/Education Provided Nephrostomy Tube Care (ED) Prescriptions See Medication Section Referrals VENKATA VALENZUELA Order Date: 2 Days Note: HAMILTON RECINOS DO Order Date: 1 Week Address: [address] [place] [phone] Note: Additional Instructions/Education Keep the nephrostomy tube in place. Follow up with Dr. Valenzuela on Wednesday AM. Failure to follow up and have your tube replaced could result in a severe infection and/or . Care Plan and Goals Physician Care Plan Problem: Nephrostomy tube Goal: Follow up with primary care provider Instructions: Take medications and follow care plan as discussed/written Functional Status No functional status results. Allergies, Adverse Reactions, Alerts Allergen Type Severity Reaction Status Last Updated Gentamicins Allergy Unknown FACIAL SWELLING Active 02/08/16 Immunizations Query Response on File Recorded Date/Time Hx Influenza Vaccination Yes 02/08/16 1:08am Hx Pneumococcal Vaccination Yes 02/08/16 1:08am Hx Tetanus, Diptheria, Pertussis Yes 11/11/14 3:39pm Hx Influenza Vaccination Yes 02/08/16 1:08am Hx Tetanus Diptheria [place] 11/11/14 3:39pm Hx Tetanus, Diptheria, Pertussis Yes 11/11/14 3:39pm Hx Tetanus Toxoid Vaccination No 06/07/14 6:39pm Influenza Vaccine Hx 12/201504/18/16 11:34pm Vital Signs Acute Vital Signs Vital Response Date/Time Temperature (Fahrenheit) 98.1 deg F (96.8 - 99.1) 04/19/2016 1:45am Temperature (Calculated Celsius) 36.52380 degrees C (36.0 - 37.3) 04/19/2016 1:45am Pulse Rate (adult) 73 bpm (60 - 100) 04/19/2016 1:45am Respiratory Rate 16 breaths/min (10 - 20) 04/19/2016 1:45am O2 Sat by Pulse Oximetry 100 % (90 - 100) 04/19/2016 1:45am Oxygen Delivery Method Room Air 02/09/2016 8:12am Oxygen Flow Rate 1.00 L/min 02/08/2016 11:52am Blood Pressure 135/80 mm Hg 04/19/2016 1:45am Blood Pressure Source Automatic Cuff 02/09/2016 8:12am Height (Feet) 5 feet 04/18/2016 11:14pm Height (Inches) 3.00 inches 04/18/2016 11:14pm Weight (Kilograms) 51.300 kg 04/18/2016 11:14pm Body Mass Index (BMI) 20.0 04/18/2016 11:14pm Results Laboratory Results Test Name Result Units Flags Reference Collection Date/Time Result Date/ Time Comments Neutrophils % (Manual) 91.0 % H 33-66 01/26/2016 3:54pm 01/26/2016 4: 30pm Lymphocytes % (Manual) 6.0 % L 23-45 01/26/2016 3:54pm 01/26/2016 4: 30pm Monocytes % (Manual) 2.0 % 0-9.0 01/26/2016 3:54pm 01/26/2016 4:30pm Eosinophils % (Manual) 1.0 % 0-4 01/26/2016 3:54pm 01/26/2016 4:30pm Absolute Neutrophils (Manual) 7.2 T/MM3 1.8-7.7 01/26/2016 3:54pm 01/25 4:30pm Lymphocytes # (Manual) 0.5 T/MM3 L 1-4.8 01/26/2016 3:54pm 01/26/2016 4: 30pm Monocytes # (Manual) 0.2 T/MM3 0-0.8 01/26/2016 3:54pm 01/26/2016 4: 30pm Eosinophils # (Manual) 0.1 T/MM3 0-0.5 01/26/2016 3:54pm 01/26/2016 4: 30pm Red Cell Morphology Comment NORMAL 01/26/2016 3:54pm 01/26/2016 4: 30pm Lipase 36 U/L 23-300 02/07/2016 10:32pm 02/07/2016 11:12pm Plasma Lactate 0.7 MMOL/L 0.6-2.2 02/07/2016 10:32pm 02/07/2016 10: 56pm Procalcitonin < 0.05 NG/ML 02/07/2016 10:32pm 02/07/2016 11:12pm PCT </=0.5 ng/mL - sepsis not likely; PCT >0.5 and </=2 ng/mL - sepsis possible; PCT >2 ng/mL - sepsis likely; PCT >/=10 ng/mL - systemic inflammatory response - sepsis or septic shock highly indicated. Stool Campylobacter PCR NEGATIVE NEGATIVE 02/08/2016 5:32pm 2015 7:59pm Stool C. difficile Toxin (PCR) DETECTED *A NEGATIVE 02/08/2016 5:32pm 02/08/2016 7:59pm Stool Plesiomonas shigelloides PCR NEGATIVE NEGATIVE 02/08/2016 5: 32pm 02/08/2016 7:59pm Stool Salmonella PCR NEGATIVE NEGATIVE 02/08/2016 5:32pm 02/08/2016 7 :59pm Stool Vibrio (PCR) NEGATIVE NEGATIVE 02/08/2016 5:32pm 02/08/2016 7: 59pm Stool Vibrio cholera (PCR) NEGATIVE NEGATIVE 02/08/2016 5:32pm 2015 7:59pm Stool Yersinia enterocolitica (PCR) NEGATIVE NEGATIVE 02/08/2016 5: 32pm 02/08/2016 7:59pm Stool Enteroaggregative E. coli PCR NEGATIVE NEGATIVE 02/08/2016 5: 32pm 02/08/2016 7:59pm Stool Enteropathogenic E. coli (PCR N/A NEGATIVE 02/08/2016 5:32pm 7:59pm Stool Enterotoxigenic Ecoli PCR NEGATIVE NEGATIVE 02/08/2016 5:32pm 02/08/2016 7:59pm Stool E. coli Shiga Toxins NEGATIVE NEGATIVE 02/08/2016 5:32pm 2015 7:59pm Stool E coli O157 PCR N/A NA/NEG 02/08/2016 5:32pm 02/08/2016 7:59pm Stool Shigella/EIEC (PCR) NEGATIVE NEGATIVE 02/08/2016 5:32pm 2015 7:59pm Stool Cryptosporidium PCR NEGATIVE NEGATIVE 02/08/2016 5:32pm 2015 7:59pm Stool Cyclospora species Detection NEGATIVE NEGATIVE 02/08/2016 5: 32pm 02/08/2016 7:59pm Stool Entamoeba (PCR) NEGATIVE NEGATIVE 02/08/2016 5:32pm 02/08/2016 7:59pm Stool Giardia Lamblia PCR NEGATIVE NEGATIVE 02/08/2016 5:32pm 2015 7:59pm Stool Adenovirus (PCR) NEGATIVE NEGATIVE 02/08/2016 5:32pm 2015 7:59pm Stool Astrovirus (PCR) NEGATIVE NEGATIVE 02/08/2016 5:32pm 2015 7:59pm Stool Norovirus GI/GII PCR NEGATIVE NEGATIVE 02/08/2016 5:32pm 2015 7:59pm Stool Rotavirus A PCR NEGATIVE NEGATIVE 02/08/2016 5:32pm 02/08/2016 7:59pm Stool Sapovirus (PCR) NEGATIVE NEGATIVE 02/08/2016 5:32pm 02/08/2016 7:59pm Urine Collection Type DAY INDWELLING 02/08/2016 2:07pm 2015 2:16pm Urine Color YELLOW YELLOW 02/08/2016 2:07pm 02/08/2016 2:16pm Urine Turbidity SL CLOUDY CLEAR 02/08/2016 2:07pm 02/08/2016 2:16pm Urine Specific [place] 1.020 1.015-1.025 02/08/2016 2:07pm 2015 2:16pm Urine pH 6.0 5.0-8.0 02/08/2016 2:07pm 02/08/2016 2:16pm Urine Leukocyte Esterase 3+ A NEGATIVE 02/08/2016 2:07pm 02/08/2016 2: 16pm Urine Nitrite POSITIVE A NEGATIVE 02/08/2016 2:07pm 02/08/2016 2:16pm Urine Protein 1+ A NEGATIVE 02/08/2016 2:07pm 02/08/2016 2:16pm Urine Glucose (UA) NEGATIVE NEGATIVE 02/08/2016 2:07pm 02/08/2016 2: 16pm Urine Ketones NEGATIVE NEGATIVE 02/08/2016 2:07pm 02/08/2016 2:16pm Urine Urobilinogen 0.2 EU/DL NORMAL 02/08/2016 2:07pm 02/08/2016 2: 16pm Urine Bilirubin NEGATIVE NEGATIVE 02/08/2016 2:07pm 02/08/2016 2: 16pm Urine Blood 2+ A NEGATIVE 02/08/2016 2:07pm 02/08/2016 2:16pm Urine WBC 50-200 /HPF H 0-5 02/08/2016 2:07pm 02/08/2016 2:23pm Urine RBC 5-10 /HPF H 0-3 02/08/2016 2:07pm 02/08/2016 2:23pm Urine Squamous Epithelial Cells 0-5 02/08/2016 2:07pm 02/08/2016 2: 23pm Urine Bacteria 3+ H NEGATIVE 02/08/2016 2:07pm 02/08/2016 2:23pm Urine Culture Indicated CULT REFLEXED &SETUP 02/08/2016 2:07pm 2:23pm White Blood Count 5.6 T/MM3 4.5-11.0 03/02/2016 12:01pm 03/02/2016 12: 05pm Red Blood Count 3.98 M/MM3 L 4.00-5.20 03/02/2016 12:01pm 03/02/2016 12: 05pm Hemoglobin 10.8 GM/DL L 12-16 03/02/2016 12:01pm 03/02/2016 12:05pm Hematocrit 35.6 % L 36-46 03/02/2016 12:01pm 03/02/2016 12:05pm Mean Corpuscular Volume 89.4 UM3 80-100 03/02/2016 12:01pm 03/02/2016 12:05pm Mean Corpuscular Hemoglobin 27.1 UUG 26-34 03/02/2016 12:01pm 2016 12:05pm Mean Corpuscular Hemoglobin Concent 30.3 GM/DL L 31-37 03/02/2016 12: 01pm 03/02/2016 12:05pm RDW Standard Deviation 57.8 FL H 36.9-50.2 03/02/2016 12:01pm 2016 12:05pm Platelet Count 204 T/MM3 130-400 03/02/2016 12:01pm 03/02/2016 12:05pm Mean Platelet Volume 10.6 UM3 9.4-12.4 03/02/2016 12:01pm 03/02/2016 12 :05pm Neutrophils (%) (Auto) 72.4 % H 33-66 03/02/2016 12:01pm 03/02/2016 12: 05pm Lymphocytes (%) (Auto) 17.4 % L 23-45 03/02/2016 12:01pm 03/02/2016 12: 05pm Monocytes (%) (Auto) 6.1 % 0-9.0 03/02/2016 12:01pm 03/02/2016 12:05pm Eosinophils (%) (Auto) 3.6 % 0-4 03/02/2016 12:01pm 03/02/2016 12:05pm Basophils (%) (Auto) 0.5 % 0-2 03/02/2016 12:01pm 03/02/2016 12:05pm Immature Granulocyte % (Auto) 0.0 % 0.0-0.5 03/02/2016 12:01pm 2016 12:05pm Absolute Neutrophils (auto) 4.0 T/MM3 1.8-7.7 03/02/2016 12:01pm 2016 12:05pm Absolute Lymphocytes (auto) 1.0 T/MM3 1-4.8 03/02/2016 12:01pm 2016 12:05pm Absolute Monocytes (auto) 0.3 T/MM3 0-0.8 03/02/2016 12:01pm 2016 12:05pm Absolute Eosinophils (auto) 0.2 T/MM3 0-0.5 03/02/2016 12:01pm 2016 12:05pm Absolute Basophils (auto) 0.0 T/MM3 0-0.2 03/02/2016 12:01pm 2016 12:05pm Absolute Immature Granulocyte (auto 0.00 T/MM3 0.00-0.03 03/02/2016 12: 01pm 03/02/2016 12:05pm Icterus Index < 2 0-7 03/02/2016 12:01pm 03/02/2016 12:17pm Chemistry Specimen Hemolysis < 15 0-25 03/02/2016 12:01pm 03/02/2016 12:17pm 0-25: Specimen Exhibited No Hemolysis. Turbidity < 20 0-20 03/02/2016 12:01pm 03/02/2016 12:17pm Sodium Level 140 MEQ/L 134-144 03/02/2016 12:01pm 03/02/2016 12:17pm Potassium Level 3.2 MEQ/L L 3.6-5 03/02/2016 12:01pm 03/02/2016 12:17pm Chloride Level 98 MEQ/L 98-107 03/02/2016 12:01pm 03/02/2016 12:17pm Carbon Dioxide Level 32 MEQ/L H 22-30 03/02/2016 12:01pm 03/02/2016 12: 17pm Anion Gap 10 MEQ/L 5-15 03/02/2016 12:01pm 03/02/2016 12:17pm Blood Urea Nitrogen 13.0 MG/DL 7-17 03/02/2016 12:01pm 03/02/2016 12: 17pm Creatinine 1.1 MG/DL 0.7-1.2 03/02/2016 12:01pm 03/02/2016 12:17pm BUN/Creatinine Ratio 12 RATIO 6-26 03/02/2016 12:01pm 03/02/2016 12: 17pm Glomerular Filtration Rate Calc 53 03/02/2016 12:01pm 03/02/2016 12 :17pm Glucose Level 148 MG/DL H 65-110 03/02/2016 12:01pm 03/02/2016 12:17pm Calculated Osmolality 272 MOSM/KG 261-280 03/02/2016 12:01pm 2016 12:17pm Calcium Level 8.4 MG/DL 8.4-10.2 03/02/2016 12:01pm 03/02/2016 12:17pm Total Bilirubin 0.40 MG/DL 0.20-1.30 03/02/2016 12:01pm 03/02/2016 12: 17pm Alkaline Phosphatase 128 U/L H 38-126 03/02/2016 12:01pm 03/02/2016 12: 17pm Total Protein 6.0 G/DL L 6.3-8.2 03/02/2016 12:01pm 03/02/2016 12:17pm Albumin 3.0 G/DL L 3.5-5.0 03/02/2016 12:01pm 03/02/2016 12:17pm Globulin 3.0 G/DL 2.4-3.6 03/02/2016 12:01pm 03/02/2016 12:17pm Albumin/Globulin Ratio 1.0 RATIO L 1.1-2.2 03/02/2016 12:01pm 2016 12:17pm Aspartate Amino Transf (AST/SGOT) 18 U/L 14-36 03/02/2016 12:01pm 03/02 12:17pm Alanine Aminotransferase (ALT/SGPT) 20 U/L 9-52 03/02/2016 12:01pm 10/2016 12:17pm Lactate Dehydrogenase 330 U/L 313-618 03/02/2016 12:01pm 03/02/2016 12: 17pm Magnesium Level 1.8 MG/DL 1.6-2.3 03/02/2016 12:01pm 03/02/2016 12: 17pm Carcinoembryonic Antigen 4.58 UG/L H 0-3.0 03/02/2016 12:01pm 2016 12:44pm 25-Hydroxy Vitamin D3 <10 ng/mL 03/02/2016 12:01pm 03/04/2016 7:20pm 25-Hydroxy Vitamin D2 <7 ng/mL 03/02/2016 12:01pm 03/04/2016 7:20pm 25-Hydroxy Vitamin D Total <17 ng/mL L 30-74 03/02/2016 12:01pm 2016 7:20pm The desirable level of 25-Hydroxy Vitamin D Total(D2 + D3) is 30- 74 ng/mL. A level consistently >200 is potentially toxic. Vitamin D, 25-Hydroxy performed at [facility] Reference [facility], [address] [place] [address] Head Of Maintenance Viral Atwood DO Microbiology Results Procedure Source Organism/Result Collection Date/Time Result Date/Time Result Status Urine Culture Urine, Day Indwelling KLEBSIELLA PNEUMO [facility]SP PNEUMO 2015 2:23pm 02/10/2016 6:40am Final Procedures Procedure Status Date Provider(s) Comprehen metabolic panel Completed 12/20/15 Carcinoembryonic antigen Completed 12/20/15 Lactate (ld) (ldh) enzyme Completed 12/20/15 Assay of magnesium Completed 12/20/15 Complete cbc w/auto diff wbc Completed 12/20/15 Routine venipuncture Completed 01/26/16 Routine venipuncture Completed 01/26/16 Metabolic panel total ca Completed 01/26/16 Metabolic panel total ca Completed 01/26/16 Complete cbc w/auto diff wbc Completed 01/26/16 Ther/proph/diag inj iv push Completed 01/26/16 Tx/pro/dx inj new drug addon Completed 01/26/16 Tx/pro/dx inj new drug addon Completed 01/26/16 Emergency dept visit Completed 01/26/16271092"INJECTION, HYDROMORPHONE, UP TO 4 MG" Completed 01/26/16"INJECTION, NALOXONE HYDROCHLORIDE, PER 1 MG" Completed 01/26/16"INJECTION, PROMETHAZINE HCL, UP TO 50 MG" Completed 01/26/16"INFUSION, NORMAL SALINE SOLUTION , 1000 CC" Completed 01/26/16"INFUSION, NORMAL SALINE SOLUTION , 1000 CC" Completed 01/26/16 Ct abd & pelvis w/o contrast Completed 03/05/16 Encounters Encounter Location Arrival/Admit Date Discharge/Depart Date Attending Provider Departed Emergency Room [facility] 04/18/16:14pm 04/19/16 1: 45am ELINOR LR DO Registered Clinic [facility] 03/05/16 2:14pm HAMILTON RECINOS DO Discharged Recurring [facility] 03/02/16 11:45am 04/16/16 11: 59pm KALIN FOREMAN Discharged Inpatient [facility] 02/08/16 12:01am 02/09/16 2:45pm ADAM ROSE MD Departed Emergency Room [facility] 01/26/16 1:59pm 01/26/16 7: 26pm MATEO ARCE MD Discharged Recurring [facility] 12/20/15 11:41am 02/03/16 11: 59pm KALIN FOREMAN Recent Diagnosis
--- OUTSIDE RECORDS SUMMARY | 2016-05-16 11:13 | XMS REPORT | Continuity of Care Document ---
Author Author [facility] Organization [facility] Address Unknown Phone Unavailable Care Team Providers Care Law Secretary Name Role Phone HAMILTON RECINOS DO Primary Care Physician [phone] Insurance Providers Payer Name Policy Number Subscriber Name Relationship [employer] [id number] Luis M Aragon 19 Self Advance Directives Directive Response Recorded Date/Time Advanced Directives Type None 08/15/13 10:08pm Ordered Resuscitation Status Full Code 06/19/13 10:41am Chief Complaint and Reason for Visit Chief Complaint Altered Mental Status Reason for Visit Acute confusion Dehydration Problems Medical Problems Problem Onset Date Status Abdominal Pain Epigastric Unknown Active UTI Unknown Active MEDICATION AFFECT Unknown Active UTI Unknown Active Chronic pelvic pain Unknown Active Chronic rectal pain Unknown Active UTI Unknown Active Acute confusion Unknown Active Dehydration Unknown Active Hyperthyroidism Unknown Active Urinary tract infection Unknown Active Medications Medication Dose Route Sig [...] Fentanyl 1 Patch TD Q3D 08/15/13 Active Ondansetron 4 Mg PO NEEDED 08/15/13 Active Pantoprazole Sodium 20 Mg PO BEFORE BREAKFAST 08/19/13 Active Ciprofloxacin Hcl 500 Mg PO TWICE A DAY 14 Qty 08/29/13 Active Social History Social History Problem Response Recorded Date/Time Smoking Status Current every day smoker 08/29/2013 5:36am Chewing Tobacco Status No 08/29/2013 5:36am Hx Substance Use No 08/29/2013 5:36am Hx Alcohol Use No 08/29/2013 5:36am Has the pt used tobacco in the [...] UP APPOINTMENT WITH DR. RECINOS ON WEDNESDAY [phone] MAR IN 2 [...] is contolled Patient Instructions: see patient instructions see patient instructions Patient Instructions: see patient instructions Problem: see problem list see patient instructions 2.Severe pain, swelling, redness, or warmth in either of your legs. 3.During office hours, call [phone] 4. After hours, please call [facility] at [phone], and have the batt machine operator page your Surgeon IN THE EVENT OF AN EMERGENCY, seek medical care at the nearest Emergency Room Condition at time of discharge: Good Care Plan Discharge Patient: Goal: Understand discharge plan Patient Instructions: see patient instructions Plan of Care Discharge Date 08/19/13 12:16pm Disposition 02 TO [facility] Condition at Discharge Improved Instructions/Education Provided DI for Altered Mental Status Prescriptions See Medications Section Referrals HAMILTON RECINOS DO Functional Status Query Response Date Recorded Physical Hygiene Self August 29, 2013 5:36am Disabilities None August 29, 2013 5:36am Ambulation Self August 29, 2013 5:36am Mental Status Alert August 29, 2013 7:43am Disabilities None August 29, 2013 5:36am Physical Hygiene Self August 29, 2013 5:36am Ambulation Self August 29, 2013 5:36am Allergies, Adverse Reactions, Alerts Allergen Type Severity Reaction Status Last Updated No Known Allergies Active 04/21/13 Immunizations Name Given Type Hx Influenza Vaccination Y Jan Historical Hx Pneumococcal Vaccination Y Jan Historical Hx Influenza Vaccination Y Jan Historical Vital Signs Acute Vital Signs Vital Response Date/Time Temperature (Fahrenheit) 97.6 deg F (96.8 - 99.1) Temperature (Calculated Celsius) 36.86434 degrees C (36.0 - 37.3) Pulse Rate (adult) 96 bpm (60 - 100) Respiratory Rate 16 breaths/min (10 - 20) O2 Sat by Pulse Oximetry 97 % (90 - 100) Blood Pressure 144/81 mm Hg Height 5 ft 3 in Weight 111 lb Body Mass Index 19.0 kg/m^2 Results Test Source Date Result Interp. Ref. Range Comments Absolute Reticulocyte Count August 15, 2013 6:50pm 0.0229 T/MM3 L 0.0300- 0.0900 Activated Partial Thromboplast Time August 15, 2013 6:50pm 41.1 SEC H 24- 36 Alanine Aminotransferase (ALT/SGPT) August 29, 2013 6:00am 14 U/L N 9-52 Albumin August 29, 2013 6:00am 3.1 G/DL L 3.5-5.0 Albumin/Globulin Ratio August 29, 2013 6:00am 0.7 RATIO L 1.1-2.2 Alkaline Phosphatase August 29, 2013 6:00am 256 U/L H 38-126 Ammonia August 15, 2013 6:50pm < 9 UMOL/L L 9-33 COMMENT DO ON BLOOD DRAWN TODAYCOMMENT * & TSH RECEPTOR ANTIBODIES * Amylase Level November 08, 2012 6:50pm 89 U/L N 30-110 Anion Gap August 29, 2013 6:00am 12 MEQ/L N 5-15 Anisocytosis August 21, 2013 8:50am 1+ - Aspartate Amino Transf (AST/SGOT) August 29, 2013 6:00am 26 U/L DN 14-36 BUN/Creatinine Ratio August 29, 2013 6:00am 25 RATIO N 6-26 Band Neutrophils # August 21, 2013 8:50am 0.1 T/MM3 - Band Neutrophils % August 21, 2013 8:50am 1.0 % N 0-6 Basophils # (Auto) August 29, 2013 6:00am 0.0 T/MM3 N 0-0.2 Basophils # (Manual) August 15, 2013 6:50pm 0.0 T/MM3 N 0-0.2 Basophils % (Manual) August 15, 2013 6:50pm 0.0 % N 0-2 Basophils (%) (Auto) August 29, 2013 6:00am 0.4 % N 0-2 Blood Smear Pathologist Review August 15, 2013 6:50pm Sent for review - COMMENT * AND THYROID PERAXIDOSE ANTIBODIES * Blood Urea Nitrogen August 29, 2013 6:00am 20.0 MG/DL H 7-17 C-Reactive Protein June 12, 2013 10:45am 9.9 MG/L H 0-9 CA 125 Antigen February 20, 2013 3:04pm 11.6 U/ML N 0-35 Calcium Level August 29, 2013 6:00am 9.1 MG/DL N 8.4-10.2 Calculated Osmolality August 29, 2013 6:00am 280 MOSM/KG N 261-280 Carbon Dioxide Level August 29, 2013 6:00am 22 MEQ/L N 22-30 Carcinoembryonic Antigen March 10, 2013 8:25am 5.90 UG/L H 0-3.0 Chloride Level August 29, 2013 6:00am 110 MEQ/L H 98-107 Cholesterol Level August 16, [...] 3:30pm < 0.2 NG/ML 0-3.4 Creatinine August 29, 2013 6:00am 0.8 MG/DL DN 0.7-1.2 Eosinophils # (Auto) August 29, 2013 6:00am 0.3 T/MM3 N 0-0.5 Eosinophils # (Manual) August 21, 2013 8:50am 0.1 T/MM3 N 0-0.5 Eosinophils % (Manual) August 21, 2013 8:50am 1.0 % N 0-4 Eosinophils (%) (Auto) August 29, 2013 6:00am 3.3 % N 0-4 Erythrocyte Sedimentation Rate June [...] & TSH RECEPTOR ANTIBODIES * Globulin August 29, 2013 6:00am 4.3 G/DL H 2.4-3.6 Glucose Level August 29, 2013 6:00am 92 MG/DL N 65-110 Haptoglobin August 15, 2013 6:50pm 296 mg/dL H - Haptoglobin performed at [facility] [address], [address], [place], [place] [id number] Director Marlena Cottrell MD Hematocrit August 29, 2013 6:00am 35.7 % L 36-46 Hemoglobin August 29, 2013 6:00am 11.2 GM/DL L 12-16 Hemoglobin A1c June 22, [...] 4:35am 45.2 L 66-159 Lactate Dehydrogenase August 28, 2013 9:01am 247 U/L L 313-618 Large Platelets April 21, 2013 9:00am Few - Lipase August 29, 2013 6:00am 520 U/L H 23-300 Lymphocytes # (Auto) August 29, 2013 6:00am 1.0 T/MM3 N 1-4.8 Lymphocytes # (Manual) August 21, 2013 8:50am 1.1 T/MM3 N 1-4.8 Lymphocytes % (Manual) August 21, 2013 8:50am 18.0 % L 23-45 Lymphocytes (%) (Auto) August 29, 2013 6:00am 12.6 % L 23-45 Magnesium Level August 28, 2013 9:01am 1.4 MG/DL L 1.6-2.3 Mean Corpuscular Hemoglobin August 29, 2013 6:00am 28.5 UUG N 26-34 Mean Corpuscular Hemoglobin Concent August 29, 2013 6:00am 31.4 GM/DL N 31 -37 Mean Corpuscular Volume August 29, 2013 6:00am 90.8 UM3 N 80-100 Mean Platelet Volume August 29, 2013 6:00am 9.9 UM3 N 9.4-12.4 Monocytes # (Auto) August 29, 2013 6:00am 0.7 T/MM3 N 0-0.8 Monocytes # (Manual) August 21, 2013 8:50am 0.4 T/MM3 N 0-0.8 Monocytes % (Manual) August 21, 2013 8:50am 6.0 % N 0-9.0 Monocytes (%) (Auto) August 29, 2013 6:00am 8.6 % N 0-9.0 Neutrophils # (Auto) August 29, 2013 6:00am 5.8 T/MM3 N 1.8-7.7 Neutrophils # (Manual) August 21, 2013 8:50am 4.4 T/MM3 N 1.8-7.7 Neutrophils % (Manual) August 21, 2013 8:50am 74.0 % H 33-66 Neutrophils (%) (Auto) August 29, 2013 6:00am 75.0 % H 33-66 Nucleated Red Blood Cells [...] 4.1 MG/DL N 2.5-4.5 Platelet Count August 29, 2013 6:00am 520 T/MM3 H 130-400 Poikilocytosis August 17, 2013 6:04am 1+ - Potassium Level August 29, 2013 6:00am 3.5 MEQ/L L 3.6-5 Prothromb Time International Ratio August 15, 2013 6:50pm 1.66 H 0.81- 1.09 THERAPUTIC RANGE=2.00-3.00 FOR ANTI-THROMBOSIS THERAPUTIC RANGE=2.50- 3.50 FOR IMPLANTED VALVE RDW Standard Deviation August 29, 2013 6:00am 51.9 FL H 36.9-50.2 Random Cortisol August 15, 2013 6:50pm 13.2 UG/DL - Before 10:00am: 4.46-22.7 ug/dL;After 5:00pm: 1.7-14.1 ug/dL Red Blood Count August 29, 2013 6:00am 3.93 M/MM3 L 4.00-5.20 Reticulocyte Hgb Content (CHr) August 15, 2013 6:50pm 32.0 PG N 30.8-36.6 Schistocytes May 31, 2013 8:30am 1+ - Sodium Level August 29, 2013 6:00am 144 MEQ/L N 134-144 Stool Occult Blood August [...] 10.9 ug/dL - Thyroxine (T4) performed at [facility], [address] [place] [address] Gas Flow Regulator Marlena Cottrell MD Total Bilirubin August 29, 2013 6:00am 0.30 MG/DL N 0.20-1.30 Total Creatine Kinase July 01, 2012 3:30pm < 20 U/L L 30-135 Total Iron Binding Capacity August 15, 2013 6:50pm 148 UG/DL L 261-497 COMMENT DO ON BLOOD DRAWN TODAYCOMMENT * & TSH RECEPTOR ANTIBODIES * Total Protein August 29, 2013 6:00am 7.4 G/DL N 6.3-8.2 Triglycerides Level August 16, [...] 114 mOsm/kg - Osmolality, Urine performed at [facility], [address] [facility], [id number] Gas Flow Regulator Marlena Cottrell MD Urine Protein August 29, [...] Has specimen been collected/obtained? Y Urine Specific [place] August 29, 2013 6:30am 1.015 - Has [...] SCHEDULED FOR 0900 White Blood Count August 29, 2013 6:00am 7.8 T/MM3 N 4.5-11.0 Chemistry Specimen Hemolysis August 29, 2013 6:00am 23 N 0-25 0-25: No Hemolysis.26-70: Slight Hemolysis - [...] mg/dL N 65-110 Lab Scanned Report August 28, 2013 6:57pm LAB TEST FORM REQUEST [id number] - Chlamydia trachomatis Amplified DNA October 22, 2011 9:38pm Ref lab rpt scanned - --- 10/26/11 0723 ---CHLAMDNA previously reported as: SENT OUT HDL Cholesterol Direct August 16, 2013 4:35am 20 MG/DL L 40-60 Platelet Evaluation (Diff) May 31, 2013 8:30am Few - Turbidity August 29, 2013 6:00am < 20 0-20 Reactive Lymphocytes % April 21, 2013 9:00am 3.0 % H 0-0 Glomerular Filtration Rate Calc August 29, 2013 6:00am 77 - Thyroperoxidase Antibody August 15, 2013 11:10pm <3 IU/mL - Thyroperoxidase Ab (TPO) performed at [facility], [address] [place] [address] Gas Flow Regulator Marlena Cottrell MD Reactive Lymphocytes # April 21, 2013 9:00am 0.2 T/MM3 H 0-0 Thyroglobulin Antibody Screen August 15, 2013 6:50pm <3 IU/mL - Thyroglobulin Ab screen performed at [facility], [address] [place] [address] Gas Flow Regulator Marlena Cottrell MD Immature Granulocyte # (Auto) August 29, 2013 6:00am 0.01 T/MM3 N 0.00- 0.03 Immature Granulocyte % (Auto) August 29, 2013 6:00am 0.1 % N 0.0-0.5 Venous Blood Lactate June 19, 2013 11:40am 1.5 MMOL/L N 0.6-2.2 Beta HCG, Quantitative December 08, 2011 8:40pm < 2.39 UIU/ML - NON- INDIVIDUALS=0 - 4.83;SAMPLES BETWEEN 4.83 - 25 SHOULD BE RE-TESTED AFTER 48 HOURS IF IS SUSPECTED; GESTATION 1-10 WEEKS: 45-256,380; 11-15 WEEKS: 11,556-265,380; 16-22 WEEKS: 27,023-111,954; 23-40 WEEKS: 24,031-101,566 Icterus Index August 29, 2013 6:00am < 2 0-7 Arterial Blood Lactic Acid July 27, 2012 4:28pm 0.9 MMOL/L N 0.5-0.9 Triiodothyonine (T3) (JOSE MIGUEL) August 15, 2013 6:50pm 92 ng/dL - T3 Total performed at [facility], [address] [place] [id number] Director Marlena Cottrell MD C. difficile Toxin B Gene (PCR) August 21, 2013 12:55pm Negative - If Toxin A is clinically indicated, treat accordingly. Blood Culture Blood August 15, 2013 11:10pm NO GROWTH AFTER 5 DAYS Gram Stain Drainage-Surgical Wound December 08, 2011 9:00pm Stool Culture Stool August 21, 2013 12:55pm Gram Stain Cervix October 22, 2011 9:25pm Urine Culture Urine, Voided-Not Cc-Midstream August 21, 2013 12:52pm YEAST Gram Stain Catheter (Line) Site December 03, 2011 5:55pm Helicobacter pylori Rapid Urease Gastric Biopsy July 28, 2012 11:03am Viral Culture Rectal/Vaginal July 26, 2013 10:00am Procedures Procedure Status Date Provider(s) Cystoscopic insertion of ureteral stent completed 08/17/13 REYNA PATE MD Encounters Encounter Location Date/Time Departed Emergency Room [facility] 08/29/13 5:36am Registered [facility] 08/28/13 9:05am Registered [facility] 08/24/13 7:07am Registered [facility] 08/21/13 12:49pm Registered [facility] 08/21/13 9:03am Discharged Inpatient [facility] 08/15/13 8:45pm Registered Clinic [facility] 08/14/13 12:51pm Registered Clinic [facility] 08/14/13 10:46am Registered Clinic [facility] 08/09/13 6:49am Registered Clinic [facility] 07/31/13 9:09am Registered Clinic [facility] 07/26/13 10:13am Registered Clinic [facility] 07/19/13 10:31am Registered Clinic [facility] 07/18/13 11:35am Registered Clinic [facility] 07/18/13 9:09am Discharged Recurring [facility] 07/07/13 10:00am Registered Clinic [facility] 06/26/13 8:37am Discharged Inpatient [facility] 06/19/13 10:10am Registered Clinic [facility] 06/14/13 8:34am Registered Clinic [facility] 06/12/13 10:07am Registered Clinic [facility] 06/12/13 10:03am Registered Clinic [facility] 06/02/13 1:25pm Recent Diagnosis
--- OUTSIDE RECORDS SUMMARY | 2016-05-16 11:13 | XMS REPORT | Continuity of Care Document ---
Author Author [facility] Organization [facility] Address Unknown Phone Unavailable Care Team Providers Care Harbour Master Name Role Phone FELECIA GALLAGHER MD Primary Care Physician [phone] Insurance Providers Payer Name Policy Number Subscriber Name Relationship Medicare [id number] Yvette Aragon 19 Self [facility] Community Plan [id number] Yvette Aragon 19 Self Advance Directives Directive Response Recorded Date/Time Advanced Directives Type None 08/29/13 4:00pm Ordered Resuscitation Status Full Code 06/19/13 10:41am Chief Complaint and Reason for Visit Chief Complaint Nausea,Vomiting,Diarrhea Reason for Visit Urinary tract infection Small bowel obstruction Problems Medical Problems Problem [...] 12/29/2013 Active Small bowel obstruction Unknown Active Urinary tract infection Unknown Active Small bowel obstruction Unknown Active Hypothyroidism Unknown Active Protein-calorie malnutrition, mild Unknown Active Anemia Unknown Active Hx of Clostridium difficile infection Unknown Active HTN (hypertension) Unknown Active Anxiety and depression Unknown Active GERD (gastroesophageal reflux disease) Unknown Active Hypomagnesemia Unknown Active Hypokalemia Unknown Active Abdominal pain Unknown Active VTE (venous thromboembolism) 04/26/2014 Active Urinary tract infection Unknown Active Flank pain Unknown Active Colon cancer Unknown Active Constipation Unknown Active Urinary tract infection Unknown Active Generalized pain Unknown Active UTI (urinary tract infection) Unknown Active Generalized pain Unknown Active Surgical Problems Problem Onset [...] Q4H PRN BREAKTHROUGH PAIN 30 Days 11/02/13 04/14/14 Discontinued Ondansetron 4 Mg PO Q6H/0300,0900,1500,2100 PRN NAUSEA &/OR VOMITING 120 Qty 11/02/13 Active Loperamide HCl 2 Mg PO Every 6 Hours PRN PRN ORDERS 30 Days 11/02/13 12/29/13 Discontinued Fentanyl 1 Patch TD Q3D 10 Qty 11/02/13 Active Gabapentin 300 Mg PO TWICE A DAY 11/20/13 Active Methimazole 60 Mg PO DAILY 12/19/13 04/20/14 Discontinued Hydrocodone/Acetaminophen 2 Tab PO Q4H 04/14/14 Active Rivaroxaban 10 Mg PO TWICE A DAY 05/16/14 Active Multivitamin 05/16/14 Active Linezolid 600 Mg PO TWICE A DAY 06/06/14 Active Nitrofurantoin Monohyd/M-Cryst 1 Cap PO TWICE DAILY WITH MEALS 14 Qty Take 2 (100 mg) capsules, by mouth, twice daily with meals. 06/06/14 Active Social History Social History Problem Response Recorded Date/Time Chewing Tobacco Status No 08/29/2013 1:04pm Hx Substance Use No 06/06/2014 12:53am Hx Alcohol Use No 06/06/2014 12:53am Has the pt used tobacco in the last 12 months Yes 04/14/2014 5:08pm Quit (MM/YYYY) 02/201201/12/2014 2:25pm Tobacco Usage none 01/12/2014 2:25pm Query Response Start Date Stop Date Smoking Status Current every day smoker Hospital Discharge Instructions Instructions: Care Instructions: Reason for Hospitalization: Small bowel obstruction I was in the hospital because (patient own words): "SMALL BOWEL BLOCKAGE AND POST KIDNEY STENT PLACEMENT" Discharge Diet: Regular Discharge Activity: as tolerated Follow Up Appointments: Wednesday at [facility] for labs (BMP, Magnesium) 1 week - Wound Clinic; CALL FOR F/U APPOINTMENT WITH WOUND CLINIC 7-[address] Gallagher; CALL FOR F/U APPOINTMENT WITH DR. GALLAGHER Patient Instructions: n/a Wound/Incision Care: per wound team Durable Medical Equipment: n/a Notify Physician If: worsening abdominal pain, nausea vomiting, fever > 100 degrees General Information: n/a Condition at time of discharge: Good - You have pain and/or swelling in your feet, calves, or legs. - You have difficulty breathing, abnormal cough, or chest pain. During office hours, call [phone]. After hours, please call [facility] at [phone] and have the jukebox operator page Dr. Abad or the covering surgeon. *In the event of an emergency, seek medical care at the nearest emergency room.* Condition at time of discharge: Good Plan of Care Discharge Date 04/20/14 5:30pm Disposition 02 TO [facility] Condition at Discharge Improved Instructions/Education Provided [facility] Discharge Instructions Colon Cancer DI for Abdominal Pain-Adult Prescriptions See Medications Section Referrals FELECIA GALLAGHER MD Functional Status Query Response Date Recorded Physical Hygiene Self June 06, 2014 12:53am Disabilities None August 29, 2013 3:16pm Devices Used Glasses June 06, 2014 12:53am Dressing Self June 06, 2014 12:53am Ambulation Self August 29, 2013 1:04pm Diet Self June 06, 2014 12:53am Mental Status Alert August 29, 2013 3:16pm Disabilities None August 29, 2013 3:16pm Devices Used Glasses June 06, 2014 12:53am Physical Hygiene Self June 06, 2014 12:53am Dressing Self June 06, 2014 12:53am Ambulation Self August 29, 2013 1:04pm Diet Self June 06, 2014 12:53am Allergies, Adverse Reactions, Alerts Allergen Type Severity Reaction Status Last Updated NKDA Allergy Unknown Active 06/06/14 Immunizations Name Given Type Hx Influenza Vaccination Y DEC 2013 Historical Hx Pneumococcal Vaccination Y FALL 2013 Historical Hx Tetanus, Diptheria, Pertussis UNKNOWN Historical Hx Influenza Vaccination Y DEC 2013 Historical Hx Tetanus Diptheria UKNOWN Historical Hx Tetanus, Diptheria, Pertussis UNKNOWN Historical Hx Tetanus Toxoid Vaccination No Historical Vital Signs Acute Vital Signs Vital Response Date/Time Temperature (Fahrenheit) 98.7 deg F (96.8 - 99.1) Temperature (Calculated Celsius) 37.05841 degrees C (36.0 - 37.3) Pulse Rate (adult) 88 bpm (60 - 100) Respiratory Rate 18 breaths/min (10 - 20) O2 Sat by Pulse Oximetry 98 % (90 - 100) Blood Pressure 108/60 mm Hg Height 5 ft 3 in Weight 120 lb Body Mass Index 21.0 kg/m^2 Results Test Source Date Result Interp. Ref. Range Comments Absolute Reticulocyte Count May 24, 2014 9:55am 0.0814 T/MM3 N 0.0300- 0.0900 Activated Partial Thromboplast Time January 12, 2014 11:01am 40.9 SEC H 24-36 Alanine Aminotransferase (ALT/SGPT) June 06, 2014 1:00am 10 U/L N 9-52 Albumin June 06, 2014 1:00am 2.9 G/DL L 3.5-5.0 Albumin/Globulin Ratio June 06, 2014 1:00am 0.9 RATIO L 1.1-2.2 Alcohol, Quantitative August 29, 2013 6:30pm <10 MG/DL - Alkaline Phosphatase June 06, 2014 1:00am 113 U/L N 38-126 Ammonia August 15, 2013 6:50pm < 9 UMOL/L L 9-33 COMMENT DO ON BLOOD DRAWN TODAYCOMMENT * & TSH RECEPTOR ANTIBODIES * Amylase Level April 14, 2014 10:45am < 30 U/L L 30-110 Anion Gap June 06, 2014 1:00am 12 MEQ/L N 5-15 Anisocytosis January 04, 2014 [...] N 80- 100 Aspartate Amino Transf (AST/SGOT) June 06, 2014 1:00am 9 U/L L 14-36 BUN/Creatinine Ratio June 06, 2014 1:00am 12 RATIO N 6-26 Band Neutrophils # May 31, 2014 11:55am 0.5 T/MM3 - Band Neutrophils % May 31, 2014 11:55am 6.0 % N 0-6 Basophils # (Auto) June 06, 2014 1:00am 0.0 T/MM3 N 0-0.2 Basophils # (Manual) May 31, 2014 11:55am 0.1 T/MM3 N 0-0.2 Basophils % (Manual) May 31, 2014 11:55am 1.0 % N 0-2 Basophils (%) (Auto) June 06, 2014 1:00am 0.4 % N 0-2 Beta HCG, Quantitative December 08, 2011 8:40pm < 2.39 UIU/ML - NON- INDIVIDUALS=0 - 4.83;SAMPLES BETWEEN 4.83 - 25 SHOULD BE RE-TESTED AFTER 48 HOURS IF IS SUSPECTED; GESTATION 1-10 WEEKS: 45-256,380; 11-15 WEEKS: 11,556-265,380; 16-22 WEEKS: 27,023-111,954; 23-40 WEEKS: 24,031-101,566 Blood Smear Pathologist Review October 25, 2013 1:45pm Sent for review - Blood Urea Nitrogen June 06, 2014 1:00am 22.0 MG/DL H 7-17 C-Reactive Protein December 08, 2013 12:01pm 34.4 MG/L H 0-9 C. difficile Toxin B Gene (PCR) October 28, 2013 11:25pm Positive H - Has specimen been collected/obtained? Y CA 125 Antigen February 20, 2013 3:04pm 11.6 U/ML N 0-35 Calcium Level June 06, 2014 1:00am 8.6 MG/DL N 8.4-10.2 Calculated Osmolality June 06, 2014 1:00am 272 MOSM/KG N 261-280 Carbon Dioxide Level June 06, 2014 1:00am 18 MEQ/L L 22-30 Carcinoembryonic Antigen May 10, 2014 10:35am 4.88 UG/L H 0-3.0 Chemistry Specimen Hemolysis June 06, 2014 1:00am < 15 0-25 0-25: No Hemolysis.26-70: Slight [...] previously reported as: SENT OUT Chloride Level June 06, 2014 1:00am 110 MEQ/L H 98-107 Cholesterol Level August 16, 2013 4:35am 80 MG/DL L 132-199 Cholesterol/HDL Ratio August 16, 2013 4:35am 4.0 RATIO N 0-4.0 Clostridium Difficile Toxin A & B May 03, 2014 9:00am Detected H - Coagulation Factor VII October 26, 2013 9:40am 64 % L - Factor VII performed at [facility], [address], [place] [address]Inldagn Director Marlena Cottrell MD Conjugated Bilirubin July [...] blood in lab from this AM. Creatinine June 06, 2014 1:00am 1.8 MG/DL H 0.7-1.2 D-Dimer October 27, 2013 4:30am 758 NG/ML H 0-224 <224 NG/ML= PRESUMPTIVE NEGATIVE FOR PE OR DVT>224 NG/ML=ADDITIONAL EVALUATION FOR PE OR DVT RECOMMENDED Eosinophils # (Auto) June 06, 2014 1:00am 0.3 T/MM3 N 0-0.5 Eosinophils # (Manual) May 31, 2014 11:55am 0.3 T/MM3 N 0-0.5 Eosinophils % (Manual) May 31, 2014 11:55am 4.0 % N 0-4 Eosinophils (%) (Auto) June 06, 2014 1:00am 3.2 % N 0-4 Erythrocyte Sedimentation Rate November 02, 2013 4:37am 78 MM/HR H 0- 20 Erythropoietin May 07, 2014 10:25am 31.0 mIU/mL H - Reference Range: 2.6 - 18.5 Test Performed by: [place] [address] Marine Engineer Cpvec: Franklyn Myers II, M.D., Ph.D. Erythropoietin performed at [facility], [address] [place] [address] Veterinary Bacteriologist MD Indigo Torres III May 07, 2014 10:25am 142 NG/ML H 6-137 Fibrin Degradation Products October 27, 2013 4:30am Negative UG/ML - Ordering r/o VTE No Fibrinogen October 27, 2013 4:30am 461 MG/DL H 135-357 Ordering r/o VTE No Folate May 07, 2014 10:25am 5.6 NG/ML N 2.76-20 NORMAL ADULT RANGE: 2.76->20 ng/mL Free Thyroxine May 10, 2014 10:35am 0.99 NG/DL N 0.78-2.19 Free Triiodothyronine August 15, 2013 6:50pm 6.84 PG/ML H 2.77-5.27 COMMENT DO ON BLOOD DRAWN TODAYCOMMENT * & TSH RECEPTOR ANTIBODIES * Globulin June 06, 2014 1:00am 3.3 G/DL N 2.4-3.6 Glomerular Filtration Rate Calc June 06, 2014 1:00am 30 - Glucometer June 20, 2013 6:29pm 108 mg/dL N 65-110 Glucose Level June 06, 2014 1:00am 102 MG/DL N 65-110 HDL Cholesterol Direct August 16, 2013 4:35am 20 MG/DL L 40-60 Haptoglobin May 07, 2014 10:25am 253 mg/dL H - Haptoglobin performed at [facility], [address], [place] [address]Onxngkv Director Viral Atwood, DO Hematocrit June 06, 2014 1:00am 28.2 % L 36-46 Hemoglobin June 06, 2014 1:00am 8.8 GM/DL L 12-16 Hemoglobin A1c June 22, 2013 4:48am 4.9 % L 6-7 <6.0 NON-DIABETIC RANGE6.0-7.0 ADA THERAPEUTIC RANGE >7.0 ACTION SUGGESTED Homocysteine May 07, 2014 10:25am 22.5 umol/L H - Homocysteine performed at [facility], [address], [place] [address]Nedqjme Director Viral Atwood DO Hypochromasia October 26, 2013 4:52am 1+ - Icterus Index June 06, 2014 1:00am < 2 0-7 Immature Granulocyte # (Auto) June 06, 2014 1:00am 0.01 T/MM3 N 0.00- 0.03 Immature Granulocyte % (Auto) June 06, 2014 1:00am 0.1 % N 0.0-0.5 Immature Reticulocyte Fraction May 24, 2014 9:55am 35.1 % H 3.3-14.5 Immunoglobulin G August 01, 2012 4:58am 860.82 MG/DL N 700-1600 COMMENT do on blood already drawn Iron Level May 07, 2014 10:25am 18 UG/DL L 37-170 LDL Cholesterol, Calculated August 16, 2013 4:35am 45.2 L 66-159 Lab Scanned Report May 31, 2014 1:00pm LAB TEST FORM REQUEST - Lactate Dehydrogenase May 31, 2014 11:55am 318 U/L N 313-618 Large Platelets April 21, 2013 9:00am Few - Lipase May 16, 2014 9:30pm 131 U/L N 23-300 Lymphocytes # (Auto) June 06, 2014 1:00am 0.5 T/MM3 L 1-4.8 Lymphocytes # (Manual) May 31, 2014 11:55am 0.9 T/MM3 L 1-4.8 Lymphocytes % (Manual) May 31, 2014 11:55am 11.0 % L 23-45 Lymphocytes (%) (Auto) June 06, 2014 1:00am 5.8 % L 23-45 Magnesium Level May 31, 2014 11:55am 1.7 MG/DL N 1.6-2.3 Mean Corpuscular Hemoglobin June 06, 2014 1:00am 32.1 UUG N 26-34 Mean Corpuscular Hemoglobin Concent June 06, 2014 1:00am 31.2 GM/DL N 31-37 Mean Corpuscular Volume June 06, 2014 1:00am 102.9 UM3 H 80-100 Mean Platelet Volume June 06, 2014 1:00am 9.6 UM3 N 9.4-12.4 Methylmalonic Acid May 07, 2014 10:25am 0.74 nmol/mL H - In this sample, the concentration of methylmalonic acid(MMA) was elevated. This finding is likely related to vitamin B12 deficiency. Test Performed by: [place] [address] Marine Engineer Cpvec: Franklyn Myers II, M.D., Ph.D. Methylmalonic Acid, Serum performed at [facility], [address] [place] [address] Veterinary Bacteriologist Bob Cottrell MD Monocytes # (Auto) June 06, 2014 1:00am 0.8 T/MM3 N 0-0.8 Monocytes # (Manual) May 31, 2014 11:55am 0.3 T/MM3 N 0-0.8 Monocytes % (Manual) May 31, 2014 11:55am 4.0 % N 0-9.0 Monocytes (%) (Auto) June 06, 2014 1:00am 10.6 % H 0-9.0 PR-Dgl-D-Type Natriuretic Peptide January 13, 2014 4:22am 160 PG/ML N 0 -175 Rule in cut points: <50 years old=450; 50-75 years old=900; >75 years old=1800; When utilizing ProBNP rule-in cut points, adjustment for impaired renal function is typically not required. Neutrophils # (Auto) June 06, 2014 1:00am 6.2 T/MM3 N 1.8-7.7 Neutrophils # (Manual) May 31, 2014 11:55am 6.4 T/MM3 N 1.8-7.7 Neutrophils % (Manual) May 31, 2014 11:55am 74.0 % H 33-66 Neutrophils (%) (Auto) June 06, 2014 1:00am 79.9 % H 33-66 Nucleated Red Blood Cells August 17, 2013 6:04am 1 - Ovalocytes August 17, 2013 6:04am 1+ - Oxygen Delivery Method (LAB) August 29, 2013 6:25pm Room air - Percent Iron Saturation May 07, 2014 10:25am 9 % N 9-55 Percent Reticulocyte Count May 24, 2014 9:55am 3.0 % H 0.6-1.7 Phosphorus Level January 14, 2014 4:14am 2.9 MG/DL N 2.5-4.5 Platelet Count June 06, 2014 1:00am 335 T/MM3 N 130-400 Platelet Evaluation (Diff) May 31, 2013 8:30am Few - Poikilocytosis October 26, 2013 4:52am 1+ - Potassium Level June 06, 2014 1:00am 4.5 MEQ/L N 3.6-5 Prealbumin April 14, 2014 10:45am 12.2 MG/DL L 17.6-36.0 COMMENT may use blood in lab Procalcitonin December 25, 2013 9:56pm 0.07 NG/ML - PCT </=0.5 ng/mL - sepsis not likely;PCT >0.5 and </=2 ng/mL - sepsis possible; PCT >2 ng/mL - sepsis likely; PCT >/=10 ng/mL - systemic inflammatory response - sepsis or septic shock highly indicated. Prothromb Time International Ratio January 12, 2014 11:01am 1.32 H 0.81 -1.09 THERAPUTIC RANGE=2.00-3.00 FOR ANTI-THROMBOSIS THERAPUTIC RANGE=2.50- 3.50 FOR IMPLANTED VALVE RDW Standard Deviation June 06, 2014 1:00am 54.0 FL H 36.9-50.2 Random Cortisol August 15, 2013 6:50pm 13.2 UG/DL - Before 10:00am: 4.46-22.7 ug/dL;After 5:00pm: 1.7-14.1 ug/dL Reactive Lymphocytes # February 23, 2014 10:30am 0.1 T/MM3 H 0-0 Reactive Lymphocytes % February 23, 2014 10:30am 1.0 % H 0-0 Red Blood Count June 06, 2014 1:00am 2.74 M/MM3 L 4.00-5.20 Red Cell Morphology Comment May 31, 2014 11:55am Normal - Reticulocyte Hgb Content (CHr) May 24, 2014 9:55am 33.7 PG N 30.8- 36.6 Schistocytes May 31, 2013 8:30am 1+ - Sodium Level June 06, 2014 1:00am 140 MEQ/L N 134-144 Stone Constituent 1 December 19, 2013 10:28am See below - 90% Calcium phosphate (apatite) Stone Constituent 2 December 19, 2013 10:28am See below - 10% Calcium carbonateTest Performed by: [place] [address] Marine Engineer Cpvec: Lonny Franz M.D. Stone Analysis performed at [facility], [address] [place] [address] Veterinary Bacteriologist Bob Cottrell MD Stone Source December 19, 2013 10:28am Kidney - Corrected result; previously reported as kidney on 12/19/13 at 10:56 by Stone Weight October 31, 2013 8:30am 0.039 g - COMMENT BLADDER STONE Stool Campylobacter PCR May 03, 2014 9:00am Not detected - Stool Cryptosporidium PCR May 03, 2014 9:00am Not detected - Stool Cyclospora species Detection May 03, 2014 9:00am Not detected - Stool E. coli Shiga Toxins May 03, 2014 9:00am Not detected - Stool Enterotoxigenic Ecoli PCR May 03, 2014 9:00am Not detected - Stool Giardia Lamblia PCR May 03, 2014 9:00am Not detected - Stool Norovirus GI/GII PCR May 03, 2014 9:00am Not detected - Stool Occult Blood October 25, 2013 3:00pm Negative - Has specimen been collected/obtained? YCOMMENT x3 lazarus lopez MD if positive Stool Rotavirus A PCR May 03, 2014 9:00am Not detected - Stool Salmonella PCR May 03, 2014 9:00am Not detected - Stool for White Cells October 25, 2013 3:00pm Positive - Has specimen been collected/obtained? Y Tear Drop Cells May 10, 2013 8:50am 1+ - Thyroglobulin Antibody Screen August 15, 2013 6:50pm <3 IU/mL - Thyroglobulin Ab screen performed at [facility], [address] [place] [address] Veterinary Bacteriologist Marlena Cottrell MD Thyroid Stimulating Hormone (TSH) May 14, 2014 9:50am 1.77 MIU/L N 0.47-4.68 Thyroperoxidase Antibody August 15, 2013 11:10pm <3 IU/mL - Thyroperoxidase Ab (TPO) performed at [facility], [address] [place] [address] Veterinary Bacteriologist Marlena Cottrell MD Thyroxine (T4) August 15, 2013 6:50pm 10.9 ug/dL - Thyroxine (T4) performed at [facility], [address] [place] [address] Veterinary Bacteriologist Marlena Cottrell MD Total Bilirubin June 06, 2014 1:00am 0.20 MG/DL N 0.20-1.30 Total Creatine Kinase January 12, 2014 11:02am < 20 U/L L 30-135 COMMENT add to blood in lab from this AM. Total Iron Binding Capacity May 07, 2014 10:25am 197 UG/DL L 261-497 Total Protein June 06, 2014 1:00am 6.2 G/DL L 6.3-8.2 Triglycerides Level August 29, 2013 6:30pm 143 MG/DL H 35-135 Triiodothyonine (T3) (JOSE MIGUEL) August 15, 2013 6:50pm 92 ng/dL - T3 Total performed at [facility], [address] [place], [place] [address]Medical Director Marlena Cottrell MD Troponin I January 12, 2014 11:01am 0.012 ng/ml N 0-0.12 COMMENT add to blood already drawn in lab.COMMENT add to blood in lab from this AM. Turbidity June 06, 2014 1:00am < 20 0-20 Unconjugated Bilirubin July 22, 2012 12:50am 0.10 MG/DL N 0.00-1.10 Urine Amorphous Urates November 30, 2011 3:00pm Many - Has specimen been collected/obtained? Y Urine Bacteria June 06, 2014 12:15am 1+ H - Has specimen been collected/obtained? Y Urine Bilirubin June 06, 2014 12:15am Negative - Has specimen been collected/obtained? Y Urine Blood June 06, 2014 12:15am 2+ H - Has specimen been collected/ obtained? Y Urine Collection Type June 06, 2014 12:15am Cleancatch-midstream - Has specimen been collected/obtained? Y Urine Color June 06, 2014 12:15am Brown - Has specimen been collected/obtained? Y Urine Culture Indicated June 06, 2014 12:15am Cult reflexed &setup - Has specimen been collected/obtained? Y Urine Eosinophils October 30, 2013 1:51pm 0 % - Eosinophil Count, Urine performed at [facility], [address] [place] [address] Veterinary Bacteriologist Marlena Cottrell MD Urine Glucose (UA) June 06, 2014 12:15am Negative - Has specimen been collected/obtained? Y Urine Ketones June 06, 2014 12:15am Negative - Has specimen been collected/obtained? Y Urine Leukocyte Esterase June 06, 2014 12:15am 3+ H - Has specimen been collected/obtained? Y Urine Mucus April 14, 2014 1:30pm Present - Has specimen been collected/obtained? Y Urine Nitrite June 06, 2014 12:15am Positive H - Has specimen been collected/obtained? Y Urine Osmolality October 30, 2013 1:51pm 366 mOsm/kg - Osmolality, Urine performed at [facility], [address] [place] [address] Veterinary Bacteriologist Marlena Cottrell MD Urine Protein June 06, 2014 12:15am 2+ H - Has specimen been collected /obtained? Y Urine RBC June 06, 2014 12:15am Tntc /HPF H - Has specimen been collected/obtained? Y Urine Random Creatinine October 30, 2013 1:51pm 19.7 MG/DL - Has specimen been collected/obtained? Y Urine Random Sodium October 30, 2013 1:51pm 166 MEQ/L H 30-90 Has specimen been collected/obtained? Y Urine Specific Sutton June 06, 2014 12:15am 1.015 - Has specimen been collected/obtained? Y Urine Squamous Epithelial Cells May 31, 2014 11:25am 0-5 - Urine Transitional Epithelial Cells August 29, 2013 6:30am 3-5 /HPF - Has specimen been collected/obtained? Y Urine Turbidity June 06, 2014 12:15am Sl cloudy - Has specimen been collected/obtained? Y Urine Urobilinogen June 06, 2014 12:15am 0.2 EU/DL - Has specimen been collected/obtained? Y Urine WBC June 06, 2014 12:15am Tntc /HPF H - Has specimen been collected/obtained? Y Urine WBC Clumps August 29, 2013 6:30am None seen - Has specimen been collected/obtained? Y Urine Yeast January 12, 2014 7:30am 1+ H - Has specimen been collected /obtained? Y Urine pH June 06, 2014 12:15am 6.0 - Has specimen been collected/ obtained? Y VLDL Cholesterol August 16, 2013 4:35am 14.8 MG/DL N 0-28 Vancomycin Level Trough October 31, 2013 8:51am 11.71 UG/ML L 15-20 Venous Blood Lactate January 12, 2014 11:01am 1.2 MMOL/L N 0.6-2.2 COMMENT do 6 hours after the lactic acid already ordered. Vitamin B12 Level May 07, 2014 10:25am 403 PG/ML N 239-931 White Blood Count June 06, 2014 1:00am 7.7 T/MM3 N 4.5-11.0 Blood Culture Peripheral Blood May 31, 2014 11:55am NO GROWTH AFTER 5 DAYS Gram Stain Drainage-Surgical Wound December 08, 2011 9:00pm Gram Stain Rectum November 22, 2013 12:25pm Gram Stain Cervix October 22, 2011 9:25pm LORAINE Preparation Other December 05, 2013 11:30am Ova and Parasites Stool October 25, 2013 3:00pm Gram Stain Bladder October 31, 2013 8:04am Urine Culture Urine, Clean Catch-Midstream May 31, 2014 11:25am Vancomycin -Resist Enterococcus Gram Stain Catheter (Line) Site December 03, 2011 5:55pm Name: YVETTE ARAGON Unit #: [id number] : [id number] Sex: F Loc / Svc: ED DOS: 05/16/14 Signed Report #: [id number] DIAGNOSTIC IMAGING REPORT TYPE OF EXAM: CT RENAL W/O CONTRAST Dictated By: ALLY BUCK MD Indication: ITS.REASON: acute right flank pain CT RENAL W/O CONTRAST: Comparison: Compared to the prior CT abdomen pelvis dated April 14, 2014 Technique: Axial CT images were performed through the abdomen and pelvis without intravenous contrast. Findings: The heart size is normal. No pericardial effusion. Lung bases are clear. Interval resolution of previous noted small bilateral pleural effusions. The liver is unremarkable. The spleen is within normal limits. Resolution of previous noted abdominal ascites. The pancreas is atrophic containing several calcifications suggestive of chronic pancreatitis. Bilateral double pigtail ureteral stents are in place. Bilateral large calculi are again demonstrated within the lower pole of the right and left kidneys without interval change from the prior study. There is interval development of moderate hydroureteronephrosis. The ureteral stents are in stable position. The bladder is unremarkable. Resolution of previously noted dilated small bowel loops. Left lower quadrant colostomy is demonstrated with moderate fecal material throughout the colonic bowel loops. Surgical anastomosis about the colonic bowel loops within the right lower quadrant. There is no abdominal or pelvic lymphadenopathy demonstrated. Mild spondylosis of the thoracolumbar spine without suspicious or destructive osseous lesions. Impression: 1. Interval resolution of small bilateral pleural effusions and ascites. 2. Interval development of moderate bilateral hydronephrosis. Bilateral pigtail ureteral stents are in stable position. No significant change in position of bilateral large renal calculi overlying the lower poles. 3. No evidence for recurrent or residual small bowel obstruction. Moderate retained fecal material in the colonic bowel loops with left lower quadrant colostomy. . Procedures Procedure Status Date Provider(s) CT THORAX W/DYE completed 03/08/14 CT ABD & PELV W/CONTRAST completed 03/08/14 [id number]"INFUSION, NORMAL SALINE SOLUTION , 250 CC" completed 03/08/14 [id number]"LOW OSMOLAR CONTRAST MATERIAL, 300-399 MG/ML IODINE C completed E&M LEVEL - FACILITY completed 03/21/14 PET IMAGE W/CT FULL BODY completed 03/14/14 [id number]"FLUORODEOXYGLUCOSE F-18 FDG, DIAGNOSTIC, PER STUDY DO completed RMVL DEVITAL TIS 20 CM/< completed 03/27/14 E&M LEVEL - FACILITY completed 04/03/14 US EXAM ABDO BACK WALL COMP completed 04/05/14 EXTREMITY STUDY completed 04/05/14 X-RAY EXAM OF ABDOMEN completed 04/06/14 BLOOD TRANSFUSION SERVICE completed 04/14/14 LUIS MANUEL HOUGH MD E&M LEVEL - FACILITY completed 05/14/14 ROUTINE VENIPUNCTURE completed 05/02/14 COMPREHEN METABOLIC PANEL completed 05/02/14 URINALYSIS AUTO W/SCOPE completed 05/02/14 COMPLETE CBC W/AUTO DIFF WBC completed 05/02/14 CULTURE AEROBIC IDENTIFY completed 05/02/14 CULTURE AEROBIC IDENTIFY completed 05/02/14 URINE CULTURE/COLONY COUNT completed 05/02/14 MICROBE SUSCEPTIBLE DISK completed 05/02/14 MICROBE SUSCEPTIBLE THANIA completed 05/02/14 EMERGENCY DEPT VISIT completed 05/02/14 URINALYSIS AUTO W/SCOPE completed 05/03/14 URINE CULTURE/COLONY COUNT completed 05/03/14 IADNA-DNA/RNA PROBE TQ 02-15 completed 05/03/14 US EXAM ABDO BACK WALL COMP completed 05/03/14 MRI ORBT/FAC/NCK W/O &W/DYE completed 05/11/14 MRI BRAIN STEM W/O & W/DYE completed 05/11/14 GADAVIST 10ML SDV - Contrast,Gadavist 10ml completed 05/11/14 ASSAY THYROID STIM HORMONE completed 05/14/14 E&M LEVEL - FACILITY completed 05/29/14 ROUTINE VENIPUNCTURE completed 05/16/14 CT ABD & PELVIS W/O CONTRAST completed 05/16/14 COMPREHEN METABOLIC PANEL completed 05/16/14 URINALYSIS AUTO W/SCOPE completed 05/16/14 ASSAY OF LIPASE completed 05/16/14 COMPLETE CBC W/AUTO DIFF WBC completed 05/16/14 URINE CULTURE/COLONY COUNT completed 05/16/14 HYDRATE IV INFUSION ADD-ON completed 05/16/14 THER/PROPH/DIAG INJ IV PUSH completed 05/16/14 TX/PRO/DX INJ NEW DRUG ADDON completed 05/16/14 TX/PRO/DX INJ NEW DRUG ADDON completed 05/16/14 TX/PRO/DX INJ SAME DRUG VICE PRESIDENT DIGITAL STRATEGIST completed 05/16/14 TX/PRO/DX INJ SAME DRUG VICE PRESIDENT DIGITAL STRATEGIST completed 05/16/14 EMERGENCY DEPT VISIT completed 05/16/14 [id number] ITEM OR SERVICE completed 05/16/14 [id number]"INJECTION, KETOROLAC TROMETHAMINE, PER 15 MG" completed 05/16/14 [id number]"INJECTION, ONDANSETRON HYDROCHLORIDE, PER 1 MG" completed 05/16/14 [id number]"INJECTION, FENTANYL CITRATE, 0.1 MG" completed 05/16/14 [id number]"INJECTION, FENTANYL CITRATE, 0.1 MG" completed 05/16/14 [id number]"INJECTION, FENTANYL CITRATE, 0.1 MG" completed 05/16/14 [id number]"INFUSION, NORMAL SALINE SOLUTION , 1000 CC" completed 05/16/14 Encounters Encounter Location Date/Time Registered Emergency Room [facility] 06/06/14 12:01am Registered Clinic [facility] 05/31/14 11:35am Registered Clinic [facility] 05/29/14 1:25pm Registered [facility] 05/24/14 10:08am Departed Emergency Room [facility] 05/16/14 9:47pm Registered Clinic [facility] 05/14/14 12:15pm Registered Clinic [facility] 05/14/14 9:58am Registered [facility] 05/11/14 7:06am Registered [facility] 05/03/14 1:28pm Registered Clinic [facility] 05/03/14 10:23am Departed Emergency Room [facility] 05/02/14 11:27am Registered [facility] 05/01/14 1:46pm Discharged Inpatient [facility] 04/14/14 3:53pm Registered [facility] 04/06/14 12:16pm Discharged Recurring [facility] 04/05/14 2:38pm Registered Clinic [facility] 04/05/14 11:53am Registered [facility] 04/03/14 1:49pm Registered [facility] 03/27/14 1:36pm Registered [facility] 03/21/14 1:39pm Registered Clinic [facility] 03/14/14 8:05am Registered Clinic [facility] 03/08/14 11:36am Recent Diagnosis
--- OUTSIDE RECORDS SUMMARY | 2016-05-16 11:13 | XMS REPORT | Continuity of Care Document ---
Author Author [facility] Organization [facility] Address Unknown Phone Unavailable Care Team Providers Care Restoration Officer Name Role Phone HAMILTON RECINOS DO Primary Care Physician [phone] Insurance Providers Payer Name Policy Number Subscriber Name Relationship [facility] Community Plan [id number] Luis M Aragon 19 Self Advance Directives [...] Pancreatitis Unknown Active Stomal bleeding Unknown Active Surgical Problems Problem Onset Date [...] Tab PO TWICE A DAY 10/11/13 Active Social History Social History Problem Response Recorded Date/Time Smoking Status Current every day smoker 08/29/2013 4:02pm Chewing Tobacco Status No 08/29/2013 1:04pm Hx Substance Use No 10/10/2013 8:39pm Hx Alcohol Use No 10/10/2013 8:39pm Has the pt used tobacco in the [...] IN 1 W[place]. CBC[place] [facility] RECINOS.-- DR. RECINOS APPOINTMENT ON 09/08/13 AT 10:15 AM--PHONE # [phone] *FOLLOW UP WITH DR NAYLOR--- APPOINTMENT WITH DR. SASCHA NAYLOR, SCHEDULED ON 09/08/13 *FOLLOW UP WITH DR MAR APPOINTMENT MADE ON 10/03/13 AT 2:30PM [phone]. TSH AND FREE T4 LAB DRAWN THAT [place] [facility] MAR. Patient Instructions: RETURN TO CARE IMMEDIATELY IF ABDOMINAL PAIN, CONSTIPATION SHOULD WORSEN. General Information: *CBC, CMP, MG IN [place] W[place] [facility] RECINOS. *PER DR RECINOS, WE ARE HOLDING YOUR THYROID ABLATION FOR NOW. Condition at time of discharge: Good Care Plan Discharge Patient: Goal: Pain is contolled Patient Instructions: see patient instructions peels excessively, notify your surgeon's office. 3.You may shower with the dressing in [...] of your legs. 3.During office hours, call [phone] 4. After hours, please call [facility] at [phone], and have the inserting operator page your Surgeon IN THE EVENT OF AN EMERGENCY, seek medical care at the nearest Emergency Room Condition at time of discharge: Good Care Plan Discharge Patient: Goal: Understand discharge plan Patient Instructions: see patient instructions see patient instructions Plan of Care Discharge Date 09/01/13 2:41pm Disposition 02 [place] [facility] Condition at Discharge Improved Instructions/Education Provided DI for Pancreatitis Prescriptions See Medications Section Referrals HAMILTON RECINOS DO Functional Status Query Response Date Recorded Physical Hygiene Self October 10, 2013 8:39pm Disabilities None August 29, 2013 3:16pm Devices Used None October 10, 2013 8:39pm Dressing Self October 10, 2013 8:39pm Ambulation Self August 29, 2013 1:04pm Diet Self October 10, 2013 8:39pm Mental Status Alert August 29, 2013 3:16pm Disabilities None August 29, 2013 3:16pm Devices Used None October 10, 2013 8:39pm Physical Hygiene Self October 10, 2013 8:39pm Dressing Self October 10, 2013 8:39pm Ambulation Self August 29, 2013 1:04pm Diet Self October 10, 2013 8:39pm Allergies, Adverse Reactions, Alerts Allergen Type Severity Reaction Status Last Updated No Known Allergies Active 10/10/13 Immunizations Name Given Type Hx Influenza Vaccination Y Jan Historical Hx Pneumococcal Vaccination Y Jan Historical Hx Influenza Vaccination Y Jan Historical Vital Signs Acute Vital Signs Vital Response Date/Time Temperature (Fahrenheit) 97.8 deg F (96.8 - 99.1) Temperature (Calculated Celsius) 36.58174 degrees C (36.0 - 37.3) Pulse Rate (adult) 98 bpm (60 - 100) Respiratory Rate 18 breaths/min (10 - 20) O2 Sat by Pulse Oximetry 99 % (90 - 100) Oxygen Flow Rate 5.00 L/min Blood Pressure 98/57 mm Hg Height 5 ft 3 in Weight 117 lb Body Mass Index 20.0 kg/m^2 Results Test Source Date Result Interp. Ref. Range Comments Absolute Reticulocyte Count August 15, 2013 6:50pm 0.0229 T/MM3 L 0.0300- 0.0900 Activated Partial Thromboplast Time August 15, 2013 6:50pm 41.1 SEC H 24- 36 Alanine Aminotransferase (ALT/SGPT) October 09, 2013 8:30am 18 U/L N 9- 52 Albumin October 09, 2013 8:30am 3.0 G/DL L 3.5-5.0 Albumin/Globulin Ratio October 09, 2013 8:30am 1.0 RATIO L 1.1-2.2 Alcohol, Quantitative August 29, 2013 6:30pm <10 MG/DL - Alkaline Phosphatase October 09, 2013 8:30am 139 U/L H 38-126 Ammonia August 15, 2013 6:50pm < 9 UMOL/L L 9-33 COMMENT DO ON BLOOD DRAWN TODAYCOMMENT * & TSH RECEPTOR ANTIBODIES * Amylase Level August 29, 2013 1:45pm 46 U/L N 30-110 Anion Gap October 09, 2013 8:30am 8 MEQ/L N 5-15 Anisocytosis August 21, 2013 [...] L 7.350-7.450 Aspartate Amino Transf (AST/SGOT) October 09, 2013 8:30am 13 U/L L 14-36 BUN/Creatinine Ratio October 09, 2013 8:30am 14 RATIO N 6-26 Band Neutrophils # August 21, 2013 8:50am 0.1 T/MM3 - Band Neutrophils % August 21, 2013 8:50am 1.0 % N 0-6 Basophils # (Auto) October 09, 2013 8:30am 0.0 T/MM3 N 0-0.2 Basophils # (Manual) August 15, 2013 6:50pm 0.0 T/MM3 N 0-0.2 Basophils % (Manual) August 15, 2013 6:50pm 0.0 % N 0-2 Basophils (%) (Auto) October 09, 2013 8:30am 0.5 % N 0-2 Blood Smear Pathologist Review August 15, 2013 6:50pm Sent for review - COMMENT * AND THYROID PERAXIDOSE ANTIBODIES * Blood Urea Nitrogen October 09, 2013 8:30am 10.0 MG/DL N 7-17 C-Reactive Protein August 31, 2013 4:33am 9.4 MG/L H 0-9 CA 125 Antigen February 20, 2013 3:04pm 11.6 U/ML N 0-35 Calcium Level October 09, 2013 8:30am 8.8 MG/DL N 8.4-10.2 Calculated Osmolality October 09, 2013 8:30am 270 MOSM/KG N 261-280 Carbon Dioxide Level October 09, 2013 8:30am 28 MEQ/L N 22-30 Carcinoembryonic Antigen March 10, 2013 8:25am 5.90 UG/L H 0-3.0 Chloride Level October 09, 2013 8:30am 105 MEQ/L N 98-107 Cholesterol Level August [...] 3:30pm < 0.2 NG/ML 0-3.4 Creatinine October 09, 2013 8:30am 0.7 MG/DL N 0.7-1.2 Eosinophils # (Auto) October 09, 2013 8:30am 0.3 T/MM3 N 0-0.5 Eosinophils # (Manual) August 21, 2013 8:50am 0.1 T/MM3 N 0-0.5 Eosinophils % (Manual) August 21, 2013 8:50am 1.0 % N 0-4 Eosinophils (%) (Auto) October 09, 2013 8:30am 4.6 % H 0-4 Erythrocyte Sedimentation Rate August [...] & TSH RECEPTOR ANTIBODIES * Globulin October 09, 2013 8:30am 3.0 G/DL N 2.4-3.6 Glucose Level October 09, 2013 8:30am 102 MG/DL N 65-110 Haptoglobin August 15, 2013 6:50pm 296 mg/dL H - Haptoglobin performed at [facility], [address], [place] [address]Vstcfuo Director Marlena Cottrell MD Hematocrit October 09, 2013 8:30am 31.2 % L 36-46 Hemoglobin October 09, 2013 8:30am 9.7 GM/DL L 12-16 Hemoglobin A1c June 22, [...] 452 U/L H 23-300 Lymphocytes # (Auto) October 09, 2013 8:30am 1.0 T/MM3 N 1-4.8 Lymphocytes # (Manual) August 21, 2013 8:50am 1.1 T/MM3 N 1-4.8 Lymphocytes % (Manual) August 21, 2013 8:50am 18.0 % L 23-45 Lymphocytes (%) (Auto) October 09, 2013 8:30am 16.5 % L 23-45 Magnesium Level October 09, 2013 8:30am 1.4 MG/DL L 1.6-2.3 Mean Corpuscular Hemoglobin October 09, 2013 8:30am 30.4 UUG N 26-34 Mean Corpuscular Hemoglobin Concent October 09, 2013 8:30am 31.1 GM/DL N 31-37 Mean Corpuscular Volume October 09, 2013 8:30am 97.8 UM3 N 80-100 Mean Platelet Volume October 09, 2013 8:30am 9.4 UM3 N 9.4-12.4 Monocytes # (Auto) October 09, 2013 8:30am 0.5 T/MM3 N 0-0.8 Monocytes # (Manual) August 21, 2013 8:50am 0.4 T/MM3 N 0-0.8 Monocytes % (Manual) August 21, 2013 8:50am 6.0 % N 0-9.0 Monocytes (%) (Auto) October 09, 2013 8:30am 8.3 % N 0-9.0 Neutrophils # (Auto) October 09, 2013 8:30am 4.4 T/MM3 N 1.8-7.7 Neutrophils # (Manual) August 21, 2013 8:50am 4.4 T/MM3 N 1.8-7.7 Neutrophils % (Manual) August 21, 2013 8:50am 74.0 % H 33-66 Neutrophils (%) (Auto) October 09, 2013 8:30am 69.9 % H 33-66 Nucleated Red Blood Cells [...] 4.1 MG/DL N 2.5-4.5 Platelet Count October 09, 2013 8:30am 389 T/MM3 N 130-400 Poikilocytosis August 17, 2013 6:04am 1+ - Potassium Level October 09, 2013 8:30am 4.1 MEQ/L N 3.6-5 Prothromb Time International Ratio August 15, 2013 6:50pm 1.66 H 0.81- 1.09 THERAPUTIC RANGE=2.00-3.00 FOR ANTI-THROMBOSIS THERAPUTIC RANGE=2.50- 3.50 FOR IMPLANTED VALVE RDW Standard Deviation October 09, 2013 8:30am 49.7 FL N 36.9-50.2 Random Cortisol August 15, 2013 6:50pm 13.2 UG/DL - Before 10:00am: 4.46-22.7 ug/dL;After 5:00pm: 1.7-14.1 ug/dL Red Blood Count October 09, 2013 8:30am 3.19 M/MM3 L 4.00-5.20 Reticulocyte Hgb Content (CHr) August 15, 2013 6:50pm 32.0 PG N 30.8-36.6 Schistocytes May 31, 2013 8:30am 1+ - Sodium Level October 09, 2013 8:30am 141 MEQ/L N 134-144 Stool Occult Blood August [...] 10.9 ug/dL - Thyroxine (T4) performed at [facility], [address] [place] [address] Half Backer Marlena Cottrell MD Total Bilirubin October 09, 2013 8:30am < 0.10 MG/DL L 0.20-1.30 Total Creatine Kinase July 01, 2012 3:30pm < 20 U/L L 30-135 Total Iron Binding Capacity August 15, 2013 6:50pm 148 UG/DL L 261-497 COMMENT DO ON BLOOD DRAWN TODAYCOMMENT * & TSH RECEPTOR ANTIBODIES * Total Protein October 09, 2013 8:30am 6.0 G/DL L 6.3-8.2 Triglycerides Level August [...] mOsm/kg - Osmolality, Urine performed at [facility], [address], [place], [id number] Half Backer Marlena Cottrell MD Urine Protein August 29, [...] Has specimen been collected/obtained? Y Urine Specific [place] August 29, 2013 6:30am 1.015 - Has [...] SCHEDULED FOR 0900 White Blood Count October 09, 2013 8:30am 6.2 T/MM3 N 4.5-11.0 Chemistry Specimen Hemolysis October 09, 2013 8:30am < 15 0-25 0-25: No Hemolysis.26-70: Slight [...] 09, 2013 10:39am LAB TEST FORM REQUEST [id number] - Chlamydia trachomatis Amplified DNA October 22, 2011 9:38pm Ref lab rpt scanned - --- 10/26/11 0723 ---CHLAMDNA previously reported as: SENT OUT HDL Cholesterol Direct August 16, 2013 4:35am 20 MG/DL L 40-60 Platelet Evaluation (Diff) May 31, 2013 8:30am Few - Turbidity October 09, 2013 8:30am < 20 0-20 Reactive Lymphocytes % April 21, 2013 9:00am 3.0 % H 0-0 Glomerular Filtration Rate Calc October 09, 2013 8:30am 90 - Thyroperoxidase Antibody August 15, 2013 11:10pm <3 IU/mL - Thyroperoxidase Ab (TPO) performed at [facility], [address] [place] [address] Half Backer Marlena Cottrell MD Reactive Lymphocytes # April 21, 2013 9:00am 0.2 T/MM3 H 0-0 Thyroglobulin Antibody Screen August 15, 2013 6:50pm <3 IU/mL - Thyroglobulin Ab screen performed at [facility], [address] [place] [address] Half Backer Marlena Cottrell MD Immature Granulocyte # (Auto) October 09, 2013 8:30am 0.01 T/MM3 N 0.00- 0.03 Immature Granulocyte % (Auto) October 09, 2013 8:30am 0.2 % N 0.0-0.5 Arterial Blood pO2 at [...] 27,023-111,954; 23-40 WEEKS: 24,031-101,566 Icterus Index October 09, 2013 8:30am < 2 0-7 Arterial Blood Lactic Acid July 27, 2012 4:28pm 0.9 MMOL/L N 0.5-0.9 Triiodothyonine (T3) (JOSE MIGUEL) August 15, 2013 6:50pm 92 ng/dL - T3 Total performed at [facility], [address] [place], [place] [address]Tzichcq Director Marlena Cottrell MD C. difficile Toxin [...] 10:00am Name: LUIS M ARAGON Unit #: [id number] : [id number] Sex: F Loc / [facility]: [facility] DOS: 09/04/13 Signed Report #: [id number] DIAGNOSTIC IMAGING REPORT TYPE OF EXAM: CT [...] ADDON completed 08/29/13 TX/PRO/DX INJ SAME DRUG FINANCIAL PLANNING ASSISTANT completed 08/29/13 HYDRATE IV INFUSION ADD-ON completed 08/29/13 Encounters Encounter Location Date/Time Departed Emergency Room [facility] 10/10/13 8:36pm Registered [facility] 10/09/13 8:37am Registered [facility] 09/13/13 9:03am Registered [facility] 09/04/13 12:22pm Discharged Inpatient [facility] 08/29/13 3:12pm Departed Emergency Room [facility] 08/29/13 5:36am Registered [facility] 08/24/13 7:07am Registered [facility] 08/21/13 12:49pm Registered [facility] 08/21/13 9:03am Discharged Inpatient [facility] 08/15/13 8:45pm Registered Clinic [facility] 08/14/13 12:51pm Registered Clinic [facility] 08/14/13 10:46am Registered Clinic [facility] 08/09/13 6:49am Registered Clinic [facility] 07/31/13 9:09am Registered Clinic [facility] 07/26/13 10:13am Registered Clinic [facility] 07/19/13 10:31am Registered Clinic [facility] 07/18/13 11:35am Registered [facility] 07/18/13 9:09am Recent Diagnosis
--- OUTSIDE RECORDS SUMMARY | 2016-05-16 11:14 | XMS REPORT | Referral Summary ---
Author Author [facility] Organization [facility] Address Unknown Phone Unavailable Care Team Providers Care Office Auditor Name Role Phone Ramirez Aramis Primary Care Physician [phone] Encounter Date(s): 04/20/16 - 04/20/16 [facility] [address] [place], [place] [address] Discharge Diagnosis: Kidney stone Discharge Disposition: 01-Home or Self Care Attending Physician: Franklyn Valenzuela MD Admitting Physician: Franklyn Valenzuela MD Vital Signs Most recent to 1 oldest [Reference Range]: Temperature Oral 36.5 degC [35.8-37.3 degC] (04/20/16 9:02 AM) Problem List Condition Effective Dates Status Health [...] 20 Assessment and Plan Extracted from: Title: Ambulatory Patient Education Author: Franklyn Valenzuela MD Date: 04/20/16 [id number] Kidney Stones Kidney stones (urolithiasis) are solid masses that form inside your kidneys. The intense pain is caused by the stone moving through the kidney, ureter, bladder, and urethra (urinary tract). When the stone moves, the ureter starts to spasm around the stone. The stone is usually passed in your pee (urine). HOME CARE Drink enough fluids to keep your pee clear or pale yellow. This helps to get the stone out. Strain all pee through the provided strainer. Do not pee without peeing through the strainer, not even once. If you pee the stone out, catch it in the strainer. The stone may be as small as a grain of salt. Take this to your doctor. This will help your doctor figure out what you can do to try to prevent more kidney stones. Only take medicine as told by your doctor. Follow up with your doctor as told. Get follow-up X-rays as told by your doctor. GET HELP IF: You have pain that gets worse even if you have been taking pain medicine. GET HELP RIGHT AWAY IF: Your pain does not get better with medicine. You have a fever or shaking chills. Your pain increases and gets worse over 18 hours. You have new belly (abdominal) pain. You feel faint or pass out. You are unable to pee. MAKE SURE YOU: Understand these instructions. Will watch your condition. Will get help right away if you are not doing well or get worse. This information is not intended to replace advice given to you by your health care provider. Make sure you discuss any questions you have with your health care provider. Document Released: 07/27/2008 Document Revised: 10/11/2013 Document Reviewed: [employer] Patient Education 2016 [employer] No follow up information was provided. Extracted from: Title: Office Visit Note Author: Franklyn Valenzuela MD Date: 04/20/16 Assessment/Plan 1.Kidney stone Nephrostomy tube changed today. [address]. Medipore tape applied. She is actually fairly conscientiousabout care of this tube. KUB. Follow-up here reemphasized. Patient soon to have blood tests by medical oncologist.
--- OUTSIDE RECORDS SUMMARY | 2016-05-16 11:16 | XMS REPORT | Continuity of Care Document ---
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 05/02/14 Active Rivaroxaban 10 Mg PO TWICE A DAY 05/16/14 Active Multivitamin 05/16/14 Active Social History Social History Problem Response Recorded Date/Time Chewing Tobacco Status No 08/29/2013 1:04pm Hx Substance Use No 05/16/2014 10:20pm Hx Alcohol Use No 05/16/2014 10:20pm Has the pt used tobacco in the [...] tolerated Follow Up App[facility]ments: [facility] (BMP, Magnesium) 1 week - Wound Clinic; CALL FOR F/U APPOINTMENT WITH WOUND CLINIC 7-[address] Gallagher; CALL FOR F/U APPOINTMENT WITH DR. GALLAGHER Patient Instructions: n/a Wound/Incision Care: per wound team Durable Medical Equipment: n/a Notify Physician If: worsening abdominal pain, nausea vomiting, fever > 100 degrees General Information: n/a Condition at time of discharge: Good room.* Condition at time of discharge: Good Plan of Care Discharge Date 04/20/14 5:30pm Disposition 02 TO [facility] Condition at Discharge Improved Instructions/Education Provided [facility] Discharge Instructions Colon Cancer DI for Abdominal Pain-Adult Prescriptions See Medications Section Referrals FELECIA GALLAGHER MD Functional Status Query Response Date Recorded Physical Hygiene Self May 16, 2014 10:20pm Disabilities None August 29, 2013 3:16pm Devices Used Glasses May 16, 2014 10:20pm Dressing Self May 16, 2014 10:20pm Ambulation Self August 29, 2013 1:04pm Diet Self May 16, 2014 10:20pm Mental Status Alert August 29, 2013 3:16pm Disabilities None August 29, 2013 3:16pm Devices Used Glasses May 16, 2014 10:20pm Physical Hygiene Self May 16, 2014 10:20pm Dressing Self May 16, 2014 10:20pm Ambulation Self August 29, 2013 1:04pm Diet Self May 16, 2014 10:20pm Allergies, Adverse Reactions, Alerts Allergen Type Severity Reaction Status Last Updated NKDA Allergy Unknown Active 05/16/14 Immunizations Name Given Type Hx Influenza Vaccination Y DEC 2013 Historical Hx Pneumococcal Vaccination Y FALL 2013 Historical Hx Tetanus, Diptheria, Pertussis UNKNOWN Historical Hx Influenza Vaccination Y DEC 2013 Historical Hx Tetanus Diptheria [facility] Historical Hx Tetanus, Diptheria, Pertussis UNKNOWN Historical Hx Tetanus Toxoid Vaccination No Historical Vital Signs Acute Vital Signs Vital Response Date/Time Temperature (Fahrenheit) 99.2 deg F (96.8 - 99.1) Temperature (Calculated Celsius) 37.03718 degrees C (36.0 - 37.3) Pulse Rate (adult) 65 bpm (60 - 100) Respiratory Rate 18 breaths/min (10 - 20) O2 Sat by Pulse Oximetry 98 % (90 - 100) Blood Pressure 129/68 mm Hg Height 5 ft 3 in Weight 110 lb Body Mass Index 19.0 kg/m^2 Results Test Source Date Result Interp. Ref. Range Comments Absolute Reticulocyte Count May 07, 2014 10:25am 0.0942 T/MM3 H 0.0300 -0.0900 Activated Partial Thromboplast Time January 12, 2014 11:01am 40.9 SEC H 24-36 Alanine Aminotransferase (ALT/SGPT) May 16, 2014 9:30pm 20 U/L N 9-52 Albumin May 16, 2014 9:30pm 3.4 G/DL L 3.5-5.0 Albumin/Globulin Ratio May 16, 2014 9:30pm 0.9 RATIO L 1.1-2.2 Alcohol, Quantitative August 29, 2013 6:30pm <10 MG/DL - Alkaline Phosphatase May 16, 2014 9:30pm 139 U/L H 38-126 Ammonia August 15, 2013 6:50pm < 9 UMOL/L L 9-33 COMMENT DO ON BLOOD DRAWN TODAYCOMMENT * & TSH RECEPTOR ANTIBODIES * Amylase Level April 14, 2014 10:45am < 30 U/L L 30-110 Anion Gap May 16, 2014 9:30pm 10 MEQ/L N 5-15 Anisocytosis January 04, 2014 [...] N 80- 100 Aspartate Amino Transf (AST/SGOT) May 16, 2014 9:30pm 14 U/L DN 14-36 BUN/Creatinine Ratio May 16, 2014 9:30pm 11 RATIO N 6-26 Band Neutrophils # April 14, 2014 10:45am 0.4 T/MM3 - Band Neutrophils % April 14, 2014 10:45am 6.0 % N 0-6 Basophils # (Auto) May 16, 2014 9:30pm 0.1 T/MM3 N 0-0.2 Basophils # (Manual) March 26, 2014 9:40am 0.1 T/MM3 N 0-0.2 Basophils % (Manual) March 26, 2014 9:40am 1.0 % N 0-2 Basophils (%) (Auto) May 16, 2014 9:30pm 0.9 % N 0-2 Beta HCG, Quantitative December 08, 2011 8:40pm < 2.39 UIU/ML - NON- INDIVIDUALS=0 - 4.83;SAMPLES BETWEEN 4.83 - 25 SHOULD BE RE-TESTED AFTER 48 HOURS IF IS SUSPECTED; GESTATION 1-10 WEEKS: 45-256,380; 11-15 WEEKS: 11,556-265,380; 16-22 WEEKS: 27,023-111,954; 23-40 WEEKS: 24,031-101,566 Blood Smear Pathologist Review October 25, 2013 1:45pm Sent for review - Blood Urea Nitrogen May 16, 2014 9:30pm 15.0 MG/DL N 7-17 C-Reactive Protein December 08, 2013 12:01pm 34.4 MG/L H 0-9 C. difficile Toxin B Gene (PCR) October 28, 2013 11:25pm Positive H - Has specimen been collected/obtained? Y CA 125 Antigen February 20, 2013 3:04pm 11.6 U/ML N 0-35 Calcium Level May 16, 2014 9:30pm 8.9 MG/DL N 8.4-10.2 Calculated Osmolality May 16, 2014 9:30pm 271 MOSM/KG N 261-280 Carbon Dioxide Level May 16, 2014 9:30pm 27 MEQ/L N 22-30 Carcinoembryonic Antigen May 10, 2014 10:35am 4.88 UG/L H 0-3.0 Chemistry Specimen Hemolysis May 16, 2014 9:30pm < 15 0-25 0-25: No Hemolysis.26-70: Slight [...] previously reported as: SENT OUT Chloride Level May 16, 2014 9:30pm 104 MEQ/L N 98-107 Cholesterol Level August 16, 2013 4:35am 80 MG/DL L 132-199 Cholesterol/HDL Ratio August 16, 2013 4:35am 4.0 RATIO N 0-4.0 Clostridium Difficile Toxin A & B May 03, 2014 9:00am Detected H - Coagulation Factor VII October 26, 2013 9:40am 64 % L - Factor VII performed at [facility], [address] [facility], [place], [place] [id number] Director Marlena Cottrell MD Conjugated Bilirubin July [...] blood in lab from this AM. Creatinine May 16, 2014 9:30pm 1.4 MG/DL DH 0.7-1.2 D-Dimer October 27, 2013 4:30am 758 NG/ML H 0-224 <224 NG/ML= PRESUMPTIVE NEGATIVE FOR PE OR DVT>224 NG/ML=ADDITIONAL EVALUATION FOR PE OR DVT RECOMMENDED Eosinophils # (Auto) May 16, 2014 9:30pm 0.1 T/MM3 N 0-0.5 Eosinophils # (Manual) April 06, 2014 10:40am 0.1 T/MM3 N 0-0.5 Eosinophils % (Manual) April 06, 2014 10:40am 1.0 % N 0-4 Eosinophils (%) (Auto) May 16, 2014 9:30pm 2.2 % N 0-4 Erythrocyte Sedimentation Rate November 02, 2013 4:37am 78 MM/HR H 0- 20 Erythropoietin May 07, 2014 10:25am 31.0 mIU/mL H - Reference Range: 2.6 - 18.5 Test Performed by: [facility] [address] [place] [address] Technical Sales Advisor: Franklyn Myers II, M.D., Ph.D. Erythropoietin performed at [facility], [address] [place] [address] Lieutenant Firefighter Bob Cottrell MD Ferritin May 07, 2014 10:25am 142 NG/ML H [...] * & TSH RECEPTOR ANTIBODIES * Globulin May 16, 2014 9:30pm 3.6 G/DL N 2.4-3.6 Glomerular Filtration Rate Calc May 16, 2014 9:30pm 40 - Glucometer June 20, 2013 6:29pm 108 mg/dL N 65-110 Glucose Level May 16, 2014 9:30pm 89 MG/DL N 65-110 HDL Cholesterol Direct August 16, 2013 4:35am 20 MG/DL L 40-60 Haptoglobin May 07, 2014 10:25am 253 mg/dL H - Haptoglobin performed at [facility], [address] [facility], [place], [place] [id number] Director Viral Atwood DO Hematocrit May 16, 2014 9:30pm 33.8 % L 36-46 Hemoglobin May 16, 2014 9:30pm 11.0 GM/DL DL 12-16 Hemoglobin A1c June 22, 2013 4:48am 4.9 % L 6-7 <6.0 NON-DIABETIC RANGE6.0-7.0 ADA THERAPEUTIC RANGE >7.0 ACTION SUGGESTED Homocysteine May 07, 2014 10:25am 22.5 umol/L H - Homocysteine performed at [facility], [address], [place], [place] [address]Zrwnhma Director Viral Atwood, DO Hypochromasia October 26, 2013 4:52am 1+ - Icterus Index May 16, 2014 9:30pm < 2 0-7 Immature Granulocyte # (Auto) May 16, 2014 9:30pm 0.00 T/MM3 N 0.00- 0.03 Immature Granulocyte % (Auto) May 16, 2014 9:30pm 0.0 % N 0.0-0.5 Immature Reticulocyte Fraction May 07, 2014 10:25am 9.2 % N 3.3-14.5 Immunoglobulin G August 01, 2012 4:58am 860.82 MG/DL N 700-1600 COMMENT do on blood already drawn Iron Level May 07, 2014 10:25am 18 UG/DL L 37-170 LDL Cholesterol, Calculated August 16, 2013 4:35am 45.2 L 66-159 Lab Scanned Report May 14, 2014 11:53am LAB TEST FORM REQUEST - Lactate Dehydrogenase May 14, 2014 9:10am 252 U/L L 313-618 Large Platelets April 21, 2013 9:00am Few - Lipase May 16, 2014 9:30pm 131 U/L N 23-300 Lymphocytes # (Auto) May 16, 2014 9:30pm 1.5 T/MM3 N 1-4.8 Lymphocytes # (Manual) April 14, 2014 10:45am 0.6 T/MM3 L 1-4.8 Lymphocytes % (Manual) April 14, 2014 10:45am 9.0 % L 23-45 Lymphocytes (%) (Auto) May 16, 2014 9:30pm 26.5 % N 23-45 Magnesium Level May 14, 2014 9:10am 1.7 MG/DL N 1.6-2.3 Mean Corpuscular Hemoglobin May 16, 2014 9:30pm 32.6 UUG N 26-34 Mean Corpuscular Hemoglobin Concent May 16, 2014 9:30pm 32.5 GM/DL N 31-37 Mean Corpuscular Volume May 16, 2014 9:30pm 100.3 UM3 H 80-100 Mean Platelet Volume May 16, 2014 9:30pm 10.1 UM3 N 9.4-12.4 Methylmalonic Acid May 07, 2014 10:25am 0.74 nmol/mL H - In this sample, the concentration of methylmalonic acid(MMA) was elevated. This finding is likely related to vitamin B12 deficiency. Test Performed by: [facility] [place] [id number] Technical Sales Advisor: Franklyn Myers II, M.D., Ph.D. Methylmalonic Acid, Serum performed at [facility], [address] [place] [address] Lieutenant Firefighter Bob Cottrell MD Monocytes # (Auto) May 16, 2014 9:30pm 0.4 T/MM3 N 0-0.8 Monocytes # (Manual) April 14, 2014 10:45am 0.4 T/MM3 N 0-0.8 Monocytes % (Manual) April 14, 2014 10:45am 5.0 % N 0-9.0 Monocytes (%) (Auto) May 16, 2014 9:30pm 7.3 % N 0-9.0 YM-Iax-B-Type Natriuretic Peptide January 13, 2014 4:22am 160 PG/ML N 0 -175 Rule in cut points: <50 years old=450; 50-75 years old=900; >75 years old=1800; When utilizing ProBNP rule-in cut points, adjustment for impaired renal function is typically not required. Neutrophils # (Auto) May 16, 2014 9:30pm 3.5 T/MM3 N 1.8-7.7 Neutrophils # (Manual) April 14, 2014 10:45am 5.6 T/MM3 N 1.8-7.7 Neutrophils % (Manual) April 14, 2014 10:45am 80.0 % H 33-66 Neutrophils (%) (Auto) May 16, 2014 9:30pm 63.1 % N 33-66 Nucleated Red Blood Cells August 17, 2013 6:04am 1 - Ovalocytes August 17, 2013 6:04am 1+ - Oxygen Delivery Method (LAB) August 29, 2013 6:25pm Room air - Percent Iron Saturation May 07, 2014 10:25am 9 % N 9-55 Percent Reticulocyte Count May 07, 2014 10:25am 3.3 % H 0.6-1.7 Phosphorus Level January 14, 2014 4:14am 2.9 MG/DL N 2.5-4.5 Platelet Count May 16, 2014 9:30pm 376 T/MM3 N 130-400 Platelet Evaluation (Diff) May 31, 2013 8:30am Few - Poikilocytosis October 26, 2013 4:52am 1+ - Potassium Level May 16, 2014 9:30pm 4.7 MEQ/L N 3.6-5 Prealbumin April 14, 2014 [...] 3.50 FOR IMPLANTED VALVE RDW Standard Deviation May 16, 2014 9:30pm 52.2 FL H 36.9-50.2 Random Cortisol August 15, 2013 6:50pm 13.2 UG/DL - Before 10:00am: 4.46-22.7 ug/dL;After 5:00pm: 1.7-14.1 ug/dL Reactive Lymphocytes # February 23, 2014 10:30am 0.1 T/MM3 H 0-0 Reactive Lymphocytes % February 23, 2014 10:30am 1.0 % H 0-0 Red Blood Count May 16, 2014 9:30pm 3.37 M/MM3 L 4.00-5.20 Reticulocyte Hgb Content (CHr) May 07, 2014 10:25am 34.5 PG N 30.8- 36.6 Schistocytes May 31, 2013 8:30am 1+ - Sodium Level May 16, 2014 9:30pm 141 MEQ/L N 134-144 Stone Constituent 1 December 19, 2013 10:28am See below - 90% Calcium phosphate (apatite) Stone Constituent 2 December 19, 2013 10:28am See below - 10% Calcium carbonateTest Performed by: [address] [address] Technical Sales Advisor: Lonny Franz M.D. Stone Analysis performed at [facility], [address] [place], [place] [id number] Lieutenant Firefighter Bob Cottrell MD Stone Source December 19, [...] IU/mL - Thyroglobulin Ab screen performed at [facility], [address] [place] [address] Lieutenant Firefighter Marlena Cottrell MD Thyroid Stimulating Hormone (TSH) May 14, 2014 9:50am 1.77 MIU/L N 0.47-4.68 Thyroperoxidase Antibody August 15, 2013 11:10pm <3 IU/mL - Thyroperoxidase Ab (TPO) performed at [facility], [address] [place] [address] Lieutenant Firefighter Marlena Cottrell MD Thyroxine (T4) August 15, 2013 6:50pm 10.9 ug/dL - Thyroxine (T4) performed at [facility], [address] [place] [address] Lieutenant Firefighter Marlena Cottrell MD Total Bilirubin May 16, 2014 9:30pm 0.50 MG/DL N 0.20-1.30 Total Creatine Kinase January 12, 2014 11:02am < 20 U/L L 30-135 COMMENT add to blood in lab from this AM. Total Iron Binding Capacity May 07, 2014 10:25am 197 UG/DL L 261-497 Total Protein May 16, 2014 9:30pm 7.0 G/DL N 6.3-8.2 Triglycerides Level August 29, 2013 6:30pm 143 MG/DL H 35-135 Triiodothyonine (T3) (JOSE MIGUEL) August 15, 2013 6:50pm 92 ng/dL - T3 Total performed at [facility], [address] [place], [place] [id number] Director Marlena Cottrell MD Troponin I January 12, 2014 11:01am 0.012 ng/ml N 0-0.12 COMMENT add to blood already drawn in lab.COMMENT add to blood in lab from this AM. Turbidity May 16, 2014 9:30pm < 20 0-20 Unconjugated Bilirubin July 22, 2012 12:50am 0.10 MG/DL N 0.00-1.10 Urine Amorphous Urates November 30, 2011 3:00pm Many - Has specimen been collected/obtained? Y Urine Bacteria May 17, 2014 12:05am Trace H - Has specimen been collected/obtained? Y Urine Bilirubin May 17, 2014 12:05am Negative - Has specimen been collected/obtained? Y Urine Blood May 17, 2014 12:05am 3+ H - Has specimen been collected/ obtained? Y Urine Collection Type May 17, 2014 12:05am Cleancatch-midstream - Has specimen been collected/obtained? Y Urine Color May 17, 2014 12:05am Dk yellow - --- 05/17/14 0039 --- UCOL previously reported as: YELLOW Urine Culture Indicated May 17, 2014 12:05am Cult reflexed &setup - PER Urine Eosinophils October 30, 2013 1:51pm 0 % - Eosinophil Count, Urine performed at [facility], [address] [place] [address] Lieutenant Firefighter Marlena Cottrell MD Urine Glucose (UA) May 17, 2014 12:05am Negative - Has specimen been collected/obtained? Y Urine Ketones May 17, 2014 12:05am Negative - Has specimen been collected/obtained? Y Urine Leukocyte Esterase May 17, 2014 12:05am 3+ H - Has specimen been collected/obtained? Y Urine Mucus April 14, 2014 1:30pm Present - Has specimen been collected/obtained? Y Urine Nitrite May 17, 2014 12:05am Negative - Has specimen been collected/obtained? Y Urine Osmolality October 30, 2013 1:51pm 366 mOsm/kg - Osmolality, Urine performed at [facility], [address] [facility], [place], [place] Lieutenant Firefighter Marlena Cottrell MD Urine Protein May 17, 2014 12:05am 2+ H - Has specimen been collected /obtained? Y Urine RBC May 17, 2014 12:05am 50-200 /HPF H - Has specimen been collected/obtained? Y Urine Random Creatinine October 30, 2013 1:51pm 19.7 MG/DL - Has specimen been collected/obtained? Y Urine Random Sodium October 30, 2013 1:51pm 166 MEQ/L H 30-90 Has specimen been collected/obtained? Y Urine Specific [place] May 17, 2014 12:05am 1.020 - Has specimen been collected/obtained? Y Urine Squamous Epithelial Cells May 03, 2014 10:30am None seen - MICROSCOPIC DONE ON UNSPUN URINE Urine Transitional Epithelial Cells August 29, 2013 6:30am 3-5 /HPF - Has specimen been collected/obtained? Y Urine Turbidity May 17, 2014 12:05am Cloudy - Has specimen been collected/obtained? Y Urine Urobilinogen May 17, 2014 12:05am 0.2 EU/DL - Has specimen been collected/obtained? Y Urine WBC May 17, 2014 12:05am Tntc /HPF H - Has specimen been collected/obtained? Y Urine WBC Clumps August 29, 2013 6:30am None seen - Has specimen been collected/obtained? Y Urine Yeast January 12, 2014 7:30am 1+ H - Has specimen been collected /obtained? Y Urine pH May 17, 2014 12:05am 6.0 - Has specimen been collected/ obtained? [...] 403 PG/ML N 239-931 White Blood Count May 16, 2014 9:30pm 5.6 T/MM3 N 4.5-11.0 Blood Culture Catheter/Port Blood [...] 8:04am Urine Culture Urine, Clean Catch-Midstream May 03, 2014 10:30am Vancomycin -Resist Enterococcus Gram Stain Catheter (Line) Site December 03, 2011 5:55pm Name: YVETTE ARAGON Unit #: [id number] : 1965 Sex: F Loc / Svc: [facility] DOS: 05/11/14 Signed Report #: [id number] DIAGNOSTIC IMAGING REPORT TYPE OF EXAM: MRI ORBIT W/WO CONTRAST Dictated By: NORM PALMER MD Indication: ITS.REASON: 368.2 DIPLOPIA, 242.10 TOXIC UNINODULAR GOITER; 376.2 MRI BRAIN and MRI orbits W/WO CONTRAST: Comparisons: Brain MRI dated August 16, 2013 Technique: Multiplanar, multisequence, MR imaging of the head with and without contrast was acquired. Special sequences were performed with attention to the orbits and optic pathways. Contrast: 5 mL of Gadavist FINDINGS: Orbits: There is increased T2 signal within the left inferior rectus muscle. The remaining extraocular muscles show normal signal intensity. The lobes are intact. The lenses are located. The optic nerves are unremarkable. Intraconal space appears normal. No intraocular or intraconal hematoma. There is also postcontrast enhancement of the left inferior rectus muscle. No discrete optic nerve enhancement. There may is also subtle enhancement of the right inferior and superior rectus muscles to a lesser degree. Mild proptosis is stable from the prior study. Brain: The cerebellar tonsils appear less low-lying on today's study. The ventricles are of normal size, shape, and contour for the patient's age. There are small nonspecific punctate areas of T2-weighted and T2 FLAIR weighted signal abnormality in the frontoparietal white matter. These lesions are similar in distribution to the comparison study but appear minimally larger on today's study. The lesion in the right mid frontal lobe on image #18 of the FLAIR series now measures 6 mm in size compared to 5 mm previously. An additional lesion on the same slice in the right anterior frontal white matter now measures 6 mm compared to 4 mm previously. Again none of these lesions show any abnormal postcontrast enhancement. The brain stem, cerebellum, and cerebral hemispheres otherwise have a normal morphologic appearance as well as MR signal intensity on all pulse sequences. Following intravenous administration of contrast, no areas of abnormal enhancement are evident. There are no areas of restricted diffusion to suggest an acute infarct. There is no evidence of an intracranial mass lesion, intracranial hemorrhage, or hydrocephalus. The visualized portions of the orbits, calvarium, paranasal sinuses, and skull base demonstrate no significant abnormality. IMPRESSION: 1. Signal abnormality and enhancement within both inferior rectus muscles and the right superior rectus muscle. This is somewhat atypical, but likely related to the patient's Graves' disease. Other etiologies including orbital pseudotumor, sarcoidosis and metastatic disease are felt to be less likely. There is no significant extraocular muscle hypertrophy. The small amount of proptosis is unchanged from the comparison study. 2. Subtle interval enlargement in a couple nonspecific white matter lesions. The lesions may be underestimated on the comparison study due to the significant motion artifact previously. The differential diagnosis for these is very broad, but metastatic disease is felt to be unlikely given the lack of postcontrast enhancement and lack of surrounding edema. Differential considerations include migraine headaches, demyelinating disease, posttraumatic, postinfectious and postinflammatory etiologies among many others including microvascular ischemic change. . Procedures Procedure Status Date Provider(s) NEG PRESS WOUND TX </=50 CM completed 02/20/14 063369"ADHESIVE BORDER, EACH DRESSING" completed 02/20/14 NEG PRESS WOUND TX </=50 CM completed 02/23/14 [id number]"ADHESIVE BORDER, EACH DRESSING" completed 02/23/14 CT ABD & PELVIS W/O CONTRAST completed 02/27/14 X-RAY EXAM OF SMALL BOWEL completed 02/27/14 E&M LEVEL - FACILITY completed 03/06/14 CT THORAX W/DYE completed 03/08/14 CT ABD & PELV W/CONTRAST completed 03/08/14 [id number]"INFUSION, NORMAL SALINE SOLUTION , 250 CC" completed 03/08/14 [id number]"LOW OSMOLAR CONTRAST MATERIAL, 300-399 MG/ML IODINE C completed E&M LEVEL - FACILITY completed 03/21/14 PET IMAGE W/CT FULL BODY completed 03/14/14 [id number]"FLUORODEOXYGLUCOSE F-18 FDG, DIAGNOSTIC, PER STUDY DO completed RMVL DEVITAL TIS 20 CM/< completed 03/27/14 E&M LEVEL - FACILITY completed 04/03/14 US EXAM ABDO BACK WALL COMP completed 04/05/14 EXTREMITY STUDY completed 04/05/14 X-RAY EXAM OF ABDOMEN completed 04/06/14 BLOOD TRANSFUSION SERVICE completed 04/14/14 LUIS MANUEL HOUGH MD ROUTINE VENIPUNCTURE completed 05/02/14 COMPREHEN METABOLIC PANEL [...] CULTURE/COLONY COUNT completed 05/03/14 IADNA-DNA/RNA PROBE TQ 12-25 completed 05/03/14 US EXAM ABDO BACK WALL COMP completed 05/03/14 Encounters Encounter Location Date/Time Departed Emergency Room [facility] 05/16/14 9:47pm Registered [facility] 05/14/14 12:15pm Registered [facility] 05/14/14 9:58am Registered [facility] 05/14/14 9:57am Registered [facility] 05/11/14 7:06am Registered [facility] 05/03/14 1:28pm Registered [facility] 05/03/14 10:23am Departed Emergency Room [facility] 05/02/14 11:27am Registered Clinic [facility] 05/01/14 1:46pm Discharged Inpatient [facility] 04/14/14 3:53pm Registered Clinic [facility] 04/06/14 12:16pm Registered [facility] 04/05/14 2:38pm Registered Clinic [facility] 04/05/14 11:53am Registered Clinic [facility] 04/03/14 1:49pm Registered Clinic [facility] 03/27/14 1:36pm Registered Clinic [facility] 03/21/14 1:39pm Registered Clinic [facility] 03/14/14 8:05am Registered Clinic [facility] 03/08/14 11:36am Registered Clinic [facility] 03/06/14 1:39pm Registered Clinic [facility] 02/27/14 8:22am Registered Clinic [facility] 02/23/14 9:06am Registered Clinic [facility] 02/20/14 1:59pm Discharged Recurring [facility] 03/10/13 8:27am Recent Diagnosis
--- OUTSIDE RECORDS SUMMARY | 2016-05-16 11:17 | XMS REPORT | Continuity of Care Document ---
Author Author [facility] Organization [facility] Address Unknown Phone Unavailable Support Name Relationship Address Phone JIGAR WHITTAKER MD Caregiver [address] [phone] FELECIA GALLAGHER MD Caregiver [facility] [id number] [place] [address] DAVE WREN Next Of Kin [address] [place] [address] CP Insurance Providers Payer Name Policy Number Subscriber Name Relationship [facility] [id number] Luis M Aragon 19 Self Advance Directives [...] Unknown Active VTE (venous thromboembolism) 04/26/2014 Active Surgical Problems Problem Onset Date Recorded [...] Macrocrystal 100 Mg PO Q6H/0300,0900,1500,2100 10 Days 05/02/14 Active Social History Social History Problem Response Recorded Date/Time Chewing Tobacco Status No 08/29/2013 1:04pm Hx Substance Use No 05/02/2014 11:27am Hx Alcohol Use No 05/02/2014 11:27am Has the pt used tobacco in the [...] Good Good Plan of Care Discharge Date 04/20/14 5:30pm Disposition 02 TO [facility] Condition at Discharge Improved Instructions/Education Provided [facility] DVT Discharge Instructions Colon Cancer DI for Abdominal Pain-Adult Prescriptions See Medications Section Referrals FELECIA GALLAGHER MD Functional Status Query Response Date Recorded Physical Hygiene Self May 02, 2014 11:27am Disabilities None August 29, 2013 3:16pm Devices Used None May 02, 2014 11:27am Dressing Self May 02, 2014 11:27am Ambulation Self August 29, 2013 1:04pm Diet Self May 02, 2014 11:27am Mental Status Alert August 29, 2013 3:16pm Disabilities None August 29, 2013 3:16pm Devices Used None May 02, 2014 11:27am Physical Hygiene Self May 02, 2014 11:27am Dressing Self May 02, 2014 11:27am Ambulation Self August 29, 2013 1:04pm Diet Self May 02, 2014 11:27am Allergies, Adverse Reactions, Alerts Allergen Type Severity Reaction Status Last Updated NKDA Allergy Unknown Active 05/02/14 Immunizations Name Given Type Hx Influenza Vaccination Y DEC 2013 Historical Hx Pneumococcal Vaccination Y FALL 2013 Historical Hx Tetanus, Diptheria, Pertussis UNKNOWN Historical Hx Influenza Vaccination Y DEC 2013 Historical Hx Tetanus Diptheria UKNOWN Historical Hx Tetanus, Diptheria, Pertussis UNKNOWN Historical Hx Tetanus Toxoid Vaccination No Historical Vital Signs Acute Vital Signs Vital Response Date/Time Temperature (Fahrenheit) 97.1 deg F (96.8 - 99.1) Temperature (Calculated Celsius) 36.87246 degrees C (36.0 - 37.3) Pulse Rate (adult) 85 bpm (60 - 100) Respiratory Rate 16 breaths/min (10 - 20) O2 Sat by Pulse Oximetry 99 % (90 - 100) Blood Pressure 114/78 mm Hg Height 5 ft 3 in Weight 112 lb Body Mass Index 19.0 kg/m^2 Results Test Source Date Result Interp. Ref. Range Comments Absolute Reticulocyte Count October 25, 2013 1:45pm 0.0382 T/MM3 N 0.0300-0.0900 Activated Partial Thromboplast Time January 12, 2014 11:01am 40.9 SEC H 24-36 Alanine Aminotransferase (ALT/SGPT) May 02, 2014 1:08pm 17 U/L N 9-52 Albumin May 02, 2014 1:08pm 2.7 G/DL L 3.5-5.0 Albumin/Globulin Ratio May 02, 2014 1:08pm 0.8 RATIO L 1.1-2.2 Alcohol, Quantitative August 29, 2013 6:30pm <10 MG/DL - Alkaline Phosphatase May 02, 2014 1:08pm 161 U/L H 38-126 Ammonia August 15, 2013 6:50pm < 9 UMOL/L L 9-33 COMMENT DO ON BLOOD DRAWN TODAYCOMMENT * & TSH RECEPTOR ANTIBODIES * Amylase Level April 14, 2014 10:45am < 30 U/L L 30-110 Anion Gap May 02, 2014 1:08pm 11 MEQ/L N 5-15 Anisocytosis January 04, 2014 [...] 80- 100 Aspartate Amino Transf (AST/SGOT) May 02, 2014 1:08pm 11 U/L L 14-36 BUN/Creatinine Ratio May 02, 2014 1:08pm 19 RATIO N 6-26 Band Neutrophils # April 14, 2014 10:45am 0.4 T/MM3 - Band Neutrophils % April 14, 2014 10:45am 6.0 % N 0-6 Basophils # (Auto) May 02, 2014 1:08pm 0.0 T/MM3 N 0-0.2 Basophils # (Manual) March 26, 2014 9:40am 0.1 T/MM3 N 0-0.2 Basophils % (Manual) March 26, 2014 9:40am 1.0 % N 0-2 Basophils (%) (Auto) May 02, 2014 1:08pm 0.7 % N 0-2 Beta HCG, Quantitative December 08, 2011 8:40pm < 2.39 UIU/ML - NON- INDIVIDUALS=0 - 4.83;SAMPLES BETWEEN 4.83 - 25 SHOULD BE RE-TESTED AFTER 48 HOURS IF IS SUSPECTED; GESTATION 1-10 WEEKS: 45-256,380; 11-15 WEEKS: 11,556-265,380; 16-22 WEEKS: 27,023-111,954; 23-40 WEEKS: 24,031-101,566 Blood Smear Pathologist Review October 25, 2013 1:45pm Sent for review - Blood Urea Nitrogen May 02, 2014 1:08pm 19.0 MG/DL H 7-17 C-Reactive Protein December 08, 2013 12:01pm 34.4 MG/L H 0-9 C. difficile Toxin B Gene (PCR) October 28, 2013 11:25pm Positive H - Has specimen been collected/obtained? Y CA 125 Antigen February 20, 2013 3:04pm 11.6 U/ML N 0-35 Calcium Level May 02, 2014 1:08pm 8.1 MG/DL L 8.4-10.2 Calculated Osmolality May 02, 2014 1:08pm 270 MOSM/KG N 261-280 Carbon Dioxide Level May 02, 2014 1:08pm 21 MEQ/L L 22-30 Carcinoembryonic Antigen April 23, 2014 11:58am 7.23 UG/L H 0-3.0 Chemistry Specimen Hemolysis May 02, 2014 1:08pm < 15 0-25 0-25: No Hemolysis.26-70: Slight [...] reported as: SENT OUT Chloride Level May 02, 2014 1:08pm 107 MEQ/L N 98-107 Cholesterol Level August 16, 2013 4:35am 80 MG/DL L 132-199 Cholesterol/HDL Ratio August 16, 2013 4:35am 4.0 RATIO N 0-4.0 Coagulation Factor VII October 26, 2013 9:40am 64 % L - Factor VII performed at [facility] [address] [place], [place] [address]Pvhdjyd Director Marlena Cottrell MD Conjugated Bilirubin July [...] in lab from this AM. Creatinine May 02, 2014 1:08pm 1.0 MG/DL N 0.7-1.2 D-Dimer October 27, 2013 4:30am 758 NG/ML H 0-224 <224 NG/ML= PRESUMPTIVE NEGATIVE FOR PE OR DVT>224 NG/ML=ADDITIONAL EVALUATION FOR PE OR DVT RECOMMENDED Eosinophils # (Auto) May 02, 2014 1:08pm 0.1 T/MM3 N 0-0.5 Eosinophils # (Manual) April 06, 2014 10:40am 0.1 T/MM3 N 0-0.5 Eosinophils % (Manual) April 06, 2014 10:40am 1.0 % N 0-4 Eosinophils (%) (Auto) May 02, 2014 1:08pm 2.0 % N 0-4 Erythrocyte Sedimentation Rate November [...] & TSH RECEPTOR ANTIBODIES * Globulin May 02, 2014 1:08pm 3.2 G/DL N 2.4-3.6 Glomerular Filtration Rate Calc May 02, 2014 1:08pm 59 - Glucometer June 20, 2013 6:29pm 108 mg/dL N 65-110 Glucose Level May 02, 2014 1:08pm 96 MG/DL N 65-110 HDL Cholesterol Direct August 16, 2013 4:35am 20 MG/DL L 40-60 Haptoglobin October 25, 2013 1:45pm 329 mg/dL H - Haptoglobin performed at [facility], [address] [place], [place] [address]Trlirpa Director Marlena Cottrell MD Hematocrit May 02, 2014 1:08pm 29.7 % DL 36-46 Hemoglobin May 02, 2014 1:08pm 9.7 GM/DL L 12-16 Hemoglobin A1c June 22, 2013 4:48am 4.9 % L 6-7 <6.0 NON-DIABETIC RANGE6.0-7.0 ADA THERAPEUTIC RANGE >7.0 ACTION SUGGESTED Hypochromasia October 26, 2013 4:52am 1+ - Icterus Index May 02, 2014 1:08pm < 2 0-7 Immature Granulocyte # (Auto) May 02, 2014 1:08pm 0.00 T/MM3 N 0.00- 0.03 Immature Granulocyte % (Auto) May 02, 2014 1:08pm 0.0 % N 0.0-0.5 Immature Reticulocyte Fraction [...] 45.2 L 66-159 Lab Scanned Report May 01, 2014 11:36am LAB TEST FORM REQUEST - Lactate Dehydrogenase April 26, 2014 10:25am 529 U/L N 313-618 Large Platelets April 21, 2013 9:00am Few - Lipase April 14, 2014 10:45am 23 U/L N 23-300 Lymphocytes # (Auto) May 02, 2014 1:08pm 0.9 T/MM3 L 1-4.8 Lymphocytes # (Manual) April 14, 2014 10:45am 0.6 T/MM3 L 1-4.8 Lymphocytes % (Manual) April 14, 2014 10:45am 9.0 % L 23-45 Lymphocytes (%) (Auto) May 02, 2014 1:08pm 22.1 % L 23-45 Magnesium Level April 26, 2014 10:25am 1.5 MG/DL L 1.6-2.3 Mean Corpuscular Hemoglobin May 02, 2014 1:08pm 32.9 UUG N 26-34 Mean Corpuscular Hemoglobin Concent May 02, 2014 1:08pm 32.7 GM/DL N 31-37 Mean Corpuscular Volume May 02, 2014 1:08pm 100.7 UM3 H 80-100 Mean Platelet Volume May 02, 2014 1:08pm 9.2 UM3 L 9.4-12.4 Monocytes # (Auto) May 02, 2014 1:08pm 0.5 T/MM3 N 0-0.8 Monocytes # (Manual) April 14, 2014 10:45am 0.4 T/MM3 N 0-0.8 Monocytes % (Manual) April 14, 2014 10:45am 5.0 % N 0-9.0 Monocytes (%) (Auto) May 02, 2014 1:08pm 11.2 % H 0-9.0 DW-Lko-K-Type Natriuretic Peptide January 13, 2014 4:22am 160 PG/ML N 0 -175 Rule in cut points: <50 years old=450; 50-75 years old=900; >75 years old=1800; When utilizing ProBNP rule-in cut points, adjustment for impaired renal function is typically not required. Neutrophils # (Auto) May 02, 2014 1:08pm 2.6 T/MM3 N 1.8-7.7 Neutrophils # (Manual) April 14, 2014 10:45am 5.6 T/MM3 N 1.8-7.7 Neutrophils % (Manual) April 14, 2014 10:45am 80.0 % H 33-66 Neutrophils (%) (Auto) May 02, 2014 1:08pm 64.0 % N 33-66 Nucleated Red Blood Cells [...] 2.9 MG/DL N 2.5-4.5 Platelet Count May 02, 2014 1:08pm 380 T/MM3 N 130-400 Platelet Evaluation (Diff) May 31, 2013 8:30am Few - Poikilocytosis October 26, 2013 4:52am 1+ - Potassium Level May 02, 2014 1:08pm 4.4 MEQ/L N 3.6-5 Prealbumin April 14, 2014 [...] FOR IMPLANTED VALVE RDW Standard Deviation May 02, 2014 1:08pm 54.6 FL H 36.9-50.2 Random Cortisol August 15, 2013 6:50pm 13.2 UG/DL - Before 10:00am: 4.46-22.7 ug/dL;After 5:00pm: 1.7-14.1 ug/dL Reactive Lymphocytes # February 23, 2014 10:30am 0.1 T/MM3 H 0-0 Reactive Lymphocytes % February 23, 2014 10:30am 1.0 % H 0-0 Red Blood Count May 02, 2014 1:08pm 2.95 M/MM3 L 4.00-5.20 Reticulocyte Hgb Content (CHr) October 25, 2013 1:45pm 23.5 PG L 30.8- 36.6 Schistocytes May 31, 2013 8:30am 1+ - Sodium Level May 02, 2014 1:08pm 139 MEQ/L N 134-144 Stone Constituent 1 December 19, 2013 10:28am See below - 90% Calcium phosphate (apatite) Stone Constituent 2 December 19, 2013 10:28am See below - 10% Calcium carbonateTest Performed by: [place] [address] Wind Instrument Repairer: Lonny Franz M.D. Stone Analysis performed at [facility], [address] [place] [address] Recording Studio Intern Bob Cottrell MD Stone Source December 19, 2013 10:28am Kidney - Corrected result; previously reported as kidney on 12/19/13 at 10:56 by Stone Weight October 31, 2013 8:30am 0.039 g - COMMENT BLADDER STONE Stool Occult Blood October 25, 2013 3:00pm Negative - Has specimen been collected/obtained? YCOMMENT x3 lazarus lopez MD if positive Stool for White Cells October 25, 2013 3:00pm Positive - Has specimen been collected/obtained? Y Tear Drop Cells May 10, 2013 8:50am 1+ - Thyroglobulin Antibody Screen August 15, 2013 6:50pm <3 IU/mL - Thyroglobulin Ab screen performed at [facility], [address] [place] [address] Recording Studio Intern Marlena Cottrell MD Thyroid Stimulating Hormone (TSH) April 19, 2014 5:11am 127.00 MIU/L H 0.47-4.68 COMMENT Add on - blood already in lab Thyroperoxidase Antibody August 15, 2013 11:10pm <3 IU/mL - Thyroperoxidase Ab (TPO) performed at [facility], [address] [place] [address] Recording Studio Intern Marlena Cottrell MD Thyroxine (T4) August 15, 2013 6:50pm 10.9 ug/dL - Thyroxine (T4) performed at [facility], [address] [place] [address] Recording Studio Intern Marlena Cottrell MD Total Bilirubin May 02, 2014 1:08pm 0.10 MG/DL L 0.20-1.30 Total Creatine Kinase January 12, 2014 11:02am < 20 U/L L 30-135 COMMENT add to blood in lab from this AM. Total Iron Binding Capacity August 15, 2013 6:50pm 148 UG/DL L 261-497 COMMENT DO ON BLOOD DRAWN TODAYCOMMENT * & TSH RECEPTOR ANTIBODIES * Total Protein May 02, 2014 1:08pm 5.9 G/DL L 6.3-8.2 Triglycerides Level August 29, 2013 6:30pm 143 MG/DL H 35-135 Triiodothyonine (T3) (JOSE MIGUEL) August 15, 2013 6:50pm 92 ng/dL - T3 Total performed at [facility], [address], [place] [address]Medical Director Marlena Cottrell MD Troponin I January 12, 2014 11:01am 0.012 ng/ml N 0-0.12 COMMENT add to blood already drawn in lab.COMMENT add to blood in lab from this AM. Turbidity May 02, 2014 1:08pm < 20 0-20 Unconjugated Bilirubin July 22, 2012 12:50am 0.10 MG/DL N 0.00-1.10 Urine Amorphous Urates November 30, 2011 3:00pm Many - Has specimen been collected/obtained? Y Urine Bacteria May 02, 2014 11:45am 2+ H - Has specimen been collected/obtained? Y Urine Bilirubin May 02, 2014 11:45am Negative - Has specimen been collected/obtained? Y Urine Blood May 02, 2014 11:45am 3+ H - Has specimen been collected/ obtained? Y Urine Collection Type May 02, 2014 11:45am Voided-not cc-midstr - Has specimen been collected/obtained? Y Urine Color May 02, 2014 11:45am Brown - Has specimen been collected/obtained? Y Urine Culture Indicated May 02, 2014 11:45am Cult reflexed &setup - Has specimen been collected/obtained? Y Urine Eosinophils October 30, 2013 1:51pm 0 % - Eosinophil Count, Urine performed at [facility], [address] [place] [address] Recording Studio Intern Marlena Cottrell MD Urine Glucose (UA) May 02, 2014 11:45am Negative - Has specimen been collected/obtained? Y Urine Ketones May 02, 2014 11:45am Trace H - Has specimen been collected/obtained? Y Urine Leukocyte Esterase May 02, 2014 11:45am 3+ H - Has specimen been collected/obtained? Y Urine Mucus April 14, 2014 1:30pm Present - Has specimen been collected/obtained? Y Urine Nitrite May 02, 2014 11:45am Positive H - Has specimen been collected/obtained? Y Urine Osmolality October 30, 2013 1:51pm 366 mOsm/kg - Osmolality, Urine performed at [facility], [address] [facility], [place], [id number] Recording Studio Intern Marlena Cottrell MD Urine Protein May 02, 2014 11:45am 3+ H - Has specimen been collected /obtained? Y Urine RBC May 02, 2014 11:45am Tntc /HPF H - Has specimen been collected/obtained? Y Urine Random Creatinine October 30, 2013 1:51pm 19.7 MG/DL - Has specimen been collected/obtained? Y Urine Random Sodium October 30, 2013 1:51pm 166 MEQ/L H 30-90 Has specimen been collected/obtained? Y Urine Specific [place] May 02, 2014 11:45am 1.025 - Has specimen been collected/obtained? Y Urine Squamous Epithelial Cells January 12, 2014 7:30am 0-5 - Has specimen been collected/obtained? Y Urine Transitional Epithelial Cells August 29, 2013 6:30am 3-5 /HPF - Has specimen been collected/obtained? Y Urine Turbidity May 02, 2014 11:45am Turbid - Has specimen been collected/obtained? Y Urine Urobilinogen May 02, 2014 11:45am 1.0 EU/DL - Has specimen been collected/obtained? Y Urine WBC May 02, 2014 11:45am Tntc /HPF H - Has specimen been collected/obtained? Y Urine WBC Clumps August 29, 2013 6:30am None seen - Has specimen been collected/obtained? Y Urine Yeast January 12, 2014 7:30am 1+ H - Has specimen been collected /obtained? Y Urine pH May 02, 2014 11:45am 6.5 - Has specimen been collected/ obtained? Y VLDL Cholesterol August 16, 2013 4:35am 14.8 MG/DL N 0-28 Vancomycin Level Trough October 31, 2013 8:51am 11.71 UG/ML L 15-20 Venous Blood Lactate January 12, 2014 11:01am 1.2 MMOL/L N 0.6-2.2 COMMENT do 6 hours after the lactic acid already ordered. Vitamin B12 Level April 14, 2014 10:45am 468 PG/ML N 239-931 COMMENT may use blood in lab White Blood Count May 02, 2014 1:08pm 4.0 T/MM3 L 4.5-11.0 Blood Culture Catheter/Port Blood December 25, 2013 11:10pm NO GROWTH AFTER 5 DAYS Gram Stain Drainage-Surgical Wound December 08, 2011 9:00pm Gram Stain Rectum November 22, 2013 12:25pm Gram Stain Cervix October 22, 2011 9:25pm LORAINE Preparation Other December 05, 2013 11:30am Ova and Parasites Stool October 25, 2013 3:00pm Gram Stain Bladder October 31, 2013 8:04am Urine Culture Urine, Straight Cath April 14, 2014 1:53pm Paola Albicans Gram Stain Catheter (Line) Site December 03, 2011 5:55pm Name: LUIS M ARAGON Unit #: [id number] : [id number] Sex: F Loc / Svc: SRG DOS: 04/14/14 Signed Report #: [id number] DIAGNOSTIC IMAGING REPORT TYPE OF EXAM: SMALL BOWEL SERIES Dictated By: NORM PALMER MD Indication: ITS.REASON: Small bowel obstruction SMALL BOWEL SERIES: Comparison: Small bowel series dated February 27, 2014 Findings: Data Transcriber radiograph of the abdomen was obtained demonstrating mildly prominent small bowel loops in the left abdomen and some moderately dilated right colon. Bilateral double-J stents are in place with bilateral lower pole renal stones. The degree of small bowel distention is slightly improved since the comparison small bowel follow-through series. Water-soluble contrast was administered via the patient's existing nasogastric tube. Contrast traversed through the small bowel reaching the colon by the 120 minute nona. There are no significantly dilated loops of small bowel seen on the current study. Bowel dilatation up to 3 cm in the left upper abdomen. Impression: No evidence of complete small bowel obstruction with contrast reaching the colon by the two hour nona. . Procedures Procedure Status Date Provider(s) NEG PRESS WOUND TX </=50 CM completed 02/06/14 [id number]"ADHESIVE BORDER, EACH DRESSING" completed 02/06/14 X-RAY EXAM OF ABDOMEN completed 02/05/14 RMVL DEVITAL TIS 20 CM/< completed 02/13/14 NEG PRESS WOUND TX </=50 CM completed 02/13/14 [id number]"ADHESIVE BORDER, EACH DRESSING" completed 02/13/14 X-RAY UPPER GI&SMALL INTEST completed 02/08/14 NEG PRESS WOUND TX </=50 CM completed 02/20/14 [id number]"ADHESIVE BORDER, EACH DRESSING" completed 02/20/14 NEG PRESS WOUND TX </=50 CM completed 02/23/14 [id number]"ADHESIVE BORDER, EACH DRESSING" completed 02/23/14 CT ABD & PELVIS W/O CONTRAST completed 02/27/14 X-RAY EXAM OF SMALL BOWEL completed 02/27/14 E&M LEVEL - FACILITY completed 03/06/14 CT THORAX W/DYE completed 03/08/14 CT ABD & PELV W/CONTRAST completed 03/08/14 [id number]"INFUSION, NORMAL SALINE SOLUTION , 250 CC" completed 03/08/14 [id number]"LOW OSMOLAR CONTRAST MATERIAL, 300-399 MG/ML IODINE C completed E&M LEVEL - FACILITY completed 03/21/14 PET IMAGE W/CT FULL BODY completed 03/14/14 [id number]"FLUORODEOXYGLUCOSE F-18 FDG, DIAGNOSTIC, PER STUDY DO completed RMVL DEVITAL TIS 20 CM/< completed 03/27/14 E&M LEVEL - FACILITY completed 04/03/14 US EXAM ABDO BACK WALL COMP completed 04/05/14 EXTREMITY STUDY completed 04/05/14 X-RAY EXAM OF ABDOMEN completed 04/06/14 BLOOD TRANSFUSION SERVICE completed 04/14/14 LUIS MANUEL HOUGH MD Encounters Encounter Location Date/Time Departed Emergency Room [facility] 05/02/14 11:27am Registered [facility] 05/01/14 1:46pm Registered [facility] 05/01/14 10:32am Discharged Inpatient [facility] 04/14/14 3:53pm Registered Clinic [facility] 04/06/14 12:16pm Registered Recurring [facility] 04/05/14 2:38pm Registered Clinic [facility] 04/05/14 11:53am Registered Clinic [facility] 04/03/14 1:49pm Registered Clinic [facility] 03/27/14 1:36pm Registered Clinic [facility] 03/21/14 1:39pm Registered Clinic [facility] 03/14/14 8:05am Registered Clinic [facility] 03/08/14 11:36am Registered Clinic [facility] 03/06/14 1:39pm Registered Clinic [facility] 02/27/14 8:22am Registered Clinic [facility] 02/23/14 9:06am Registered Clinic [facility] 02/20/14 1:59pm Registered Clinic [facility] 02/13/14 1:57pm Registered Clinic [facility] 02/08/14 12:26pm Registered Clinic [facility] 02/07/14 9:58am Registered Clinic [facility] 02/06/14 1:33pm Registered Clinic [facility] 02/05/14 10:21am Discharged Recurring [facility] 03/10/13 8:27am Recent Diagnosis
--- OUTSIDE RECORDS SUMMARY | 2016-05-16 11:18 | XMS REPORT | Continuity of Care Document ---
Author Author [facility] Organization [facility] Address Unknown Phone Unavailable Care Team Providers Care Sales Representative Wire Rope Name Role Phone FELECIA GALLAGHER MD Primary Care Physician [phone] Insurance Providers Payer Name Policy Number Subscriber Name Relationship [facility] Community Plan [id number] Yvette Aragon 19 Self Advance Directives Directive [...] n/a Condition at time of discharge: Good Pass Plan of Care Discharge Date 04/20/14 5:30pm Instructions/Education Provided [facility] DVT Discharge Instructions Colon Cancer DI for Abdominal Pain-Adult Prescriptions See Medications Section Functional Status Query Response Date Recorded Physical Hygiene Self May 16, 2014 10:20pm Disabilities None August 29, 2013 3:16pm Ambulation Self August 29, 2013 1:04pm Mental Status Alert August 29, 2013 3:16pm Disabilities None August 29, 2013 3:16pm Physical Hygiene Self May 16, 2014 10:20pm Ambulation Self August 29, 2013 1:04pm Allergies, Adverse Reactions, Alerts Allergen Type Severity Reaction Status Last Updated NKDA Allergy Unknown Active 05/16/14 Immunizations Name Given Type Hx Influenza Vaccination Y DEC 2013 Historical Hx Pneumococcal Vaccination Y FALL 2013 Historical Hx Tetanus, Diptheria, Pertussis No Historical Hx Influenza Vaccination Y DEC 2013 Historical Hx Tetanus Diptheria No Historical Hx Tetanus, Diptheria, Pertussis No Historical Hx Tetanus Toxoid Vaccination No Historical Vital Signs Acute Vital Signs Vital Response Date/Time Temperature (Fahrenheit) 99.2 deg F (96.8 - 99.1) Temperature (Calculated Celsius) 37.02070 degrees C (36.0 - 37.3) Pulse Rate (adult) 65 bpm (60 - 100) Respiratory Rate 18 breaths/min (10 - 20) O2 Sat by Pulse Oximetry 98 % (90 - 100) Blood Pressure 129/68 mm Hg Results Test Source Date Result Interp. Ref. Range Comments Absolute Reticulocyte Count May 17, 2014 10:00am 0.0587 T/MM3 N 0.0300 -0.0900 Activated Partial Thromboplast Time January 12, 2014 11:01am 40.9 SEC H 24-36 Alanine Aminotransferase (ALT/SGPT) May 17, 2014 10:00am 15 U/L N 9- 52 Albumin May 17, 2014 10:00am 3.1 G/DL L 3.5-5.0 Albumin/Globulin Ratio May 17, 2014 10:00am 0.9 RATIO L 1.1-2.2 Alcohol, Quantitative August 29, 2013 6:30pm <10 MG/DL - Alkaline Phosphatase May 17, 2014 10:00am 98 U/L DN 38-126 Ammonia August 15, 2013 6:50pm < 9 UMOL/L L 9-33 COMMENT DO ON BLOOD DRAWN TODAYCOMMENT * & TSH RECEPTOR ANTIBODIES * Amylase Level April 14, 2014 10:45am < 30 U/L L 30-110 Anion Gap May 17, 2014 10:00am 10 MEQ/L N 5-15 Anisocytosis January 04, [...] 80- 100 Aspartate Amino Transf (AST/SGOT) May 17, 2014 10:00am 12 U/L L 14-36 BUN/Creatinine Ratio May 17, 2014 10:00am 14 RATIO N 6-26 Band Neutrophils # April 14, 2014 10:45am 0.4 T/MM3 - Band Neutrophils % April 14, 2014 10:45am 6.0 % N 0-6 Basophils # (Auto) May 17, 2014 10:00am 0.0 T/MM3 N 0-0.2 Basophils # (Manual) March 26, 2014 9:40am 0.1 T/MM3 N 0-0.2 Basophils % (Manual) March 26, 2014 9:40am 1.0 % N 0-2 Basophils (%) (Auto) May 17, 2014 10:00am 0.6 % N 0-2 Beta HCG, Quantitative December 08, 2011 8:40pm < 2.39 UIU/ML - NON- INDIVIDUALS=0 - 4.83;SAMPLES BETWEEN 4.83 - 25 SHOULD BE RE-TESTED AFTER 48 HOURS IF IS SUSPECTED; GESTATION 1-10 WEEKS: 45-256,380; 11-15 WEEKS: 11,556-265,380; 16-22 WEEKS: 27,023-111,954; 23-40 WEEKS: 24,031-101,566 Blood Smear Pathologist Review October 25, 2013 1:45pm Sent for review - Blood Urea Nitrogen May 17, 2014 10:00am 15.0 MG/DL N 7-17 C-Reactive Protein December 08, 2013 12:01pm 34.4 MG/L H 0-9 C. difficile Toxin B Gene (PCR) October 28, 2013 11:25pm Positive H - Has specimen been collected/obtained? Y CA 125 Antigen February 20, 2013 3:04pm 11.6 U/ML N 0-35 Calcium Level May 17, 2014 10:00am 8.7 MG/DL N 8.4-10.2 Calculated Osmolality May 17, 2014 10:00am 267 MOSM/KG N 261-280 Carbon Dioxide Level May 17, 2014 10:00am 22 MEQ/L N 22-30 Carcinoembryonic Antigen May 10, 2014 10:35am 4.88 UG/L H 0-3.0 Chemistry Specimen Hemolysis May 17, 2014 10:00am < 15 0-25 0-25: No Hemolysis.26-70: Slight [...] reported as: SENT OUT Chloride Level May 17, 2014 10:00am 106 MEQ/L N 98-107 Cholesterol Level August 16, 2013 4:35am 80 MG/DL L 132-199 Cholesterol/HDL Ratio August 16, 2013 4:35am 4.0 RATIO N 0-4.0 Clostridium Difficile Toxin A & B May 03, 2014 9:00am Detected H - Coagulation Factor VII October 26, 2013 9:40am 64 % L - Factor VII performed at [facility], [address], [place], [place] [address]Wenyjhp Director Marlena Cottrell MD Conjugated Bilirubin July [...] in lab from this AM. Creatinine May 17, 2014 10:00am 1.1 MG/DL DN 0.7-1.2 D-Dimer October 27, 2013 4:30am 758 NG/ML H 0-224 <224 NG/ML= PRESUMPTIVE NEGATIVE FOR PE OR DVT>224 NG/ML=ADDITIONAL EVALUATION FOR PE OR DVT RECOMMENDED Eosinophils # (Auto) May 17, 2014 10:00am 0.1 T/MM3 N 0-0.5 Eosinophils # (Manual) April 06, 2014 10:40am 0.1 T/MM3 N 0-0.5 Eosinophils % (Manual) April 06, 2014 10:40am 1.0 % N 0-4 Eosinophils (%) (Auto) May 17, 2014 10:00am 1.6 % N 0-4 Erythrocyte Sedimentation Rate November 02, 2013 4:37am 78 MM/HR H 0- 20 Erythropoietin May 07, 2014 10:25am 31.0 mIU/mL H - Reference Range: 2.6 - 18.5 Test Performed by: [place] [address] News Clerk: Franklyn Myers II, M.D., Ph.D. Erythropoietin performed at [facility], [address] [place] [address] Kettle Coordinator MD Indigo Torres III May 07, 2014 [...] & TSH RECEPTOR ANTIBODIES * Globulin May 17, 2014 10:00am 3.3 G/DL N 2.4-3.6 Glomerular Filtration Rate Calc May 17, 2014 10:00am 53 - Glucometer June 20, 2013 6:29pm 108 mg/dL N 65-110 Glucose Level May 17, 2014 10:00am 96 MG/DL N 65-110 HDL Cholesterol Direct August 16, 2013 4:35am 20 MG/DL L 40-60 Haptoglobin May 07, 2014 10:25am 253 mg/dL H - Haptoglobin performed at [facility], [address], [place] [address]Jnhvaxg Director Viral Atwood DO Hematocrit May 17, 2014 10:00am 30.2 % L 36-46 Hemoglobin May 17, 2014 10:00am 9.7 GM/DL DL 12-16 Hemoglobin A1c June 22, 2013 4:48am 4.9 % L 6-7 <6.0 NON-DIABETIC RANGE6.0-7.0 ADA THERAPEUTIC RANGE >7.0 ACTION SUGGESTED Homocysteine May 07, 2014 10:25am 22.5 umol/L H - Homocysteine performed at [facility], [address] [place], [place] [address]Ckyilbb Director Viral Atwood DO Hypochromasia October 26, 2013 4:52am 1+ - Icterus Index May 17, 2014 10:00am < 2 0-7 Immature Granulocyte # (Auto) May 17, 2014 10:00am 0.01 T/MM3 N 0.00- 0.03 Immature Granulocyte % (Auto) May 17, 2014 10:00am 0.2 % N 0.0-0.5 Immature Reticulocyte Fraction May 17, 2014 10:00am 8.7 % N 3.3-14.5 Immunoglobulin G August 01, 2012 4:58am 860.82 MG/DL N 700-1600 COMMENT do on blood already drawn Iron Level May 07, 2014 10:25am 18 UG/DL L 37-170 LDL Cholesterol, Calculated August 16, 2013 4:35am 45.2 L 66-159 Lab Scanned Report May 17, 2014 5:24pm LAB TEST FORM REQUEST - Lactate Dehydrogenase May 17, 2014 10:00am 316 U/L N 313-618 Large Platelets April 21, 2013 9:00am Few - Lipase May 16, 2014 9:30pm 131 U/L N 23-300 Lymphocytes # (Auto) May 17, 2014 10:00am 0.6 T/MM3 L 1-4.8 Lymphocytes # (Manual) April 14, 2014 10:45am 0.6 T/MM3 L 1-4.8 Lymphocytes % (Manual) April 14, 2014 10:45am 9.0 % L 23-45 Lymphocytes (%) (Auto) May 17, 2014 10:00am 12.0 % L 23-45 Magnesium Level May 17, 2014 10:00am 1.7 MG/DL N 1.6-2.3 Mean Corpuscular Hemoglobin May 17, 2014 10:00am 32.2 UUG N 26-34 Mean Corpuscular Hemoglobin Concent May 17, 2014 10:00am 32.1 GM/DL N 31-37 Mean Corpuscular Volume May 17, 2014 10:00am 100.3 UM3 H 80-100 Mean Platelet Volume May 17, 2014 10:00am 9.2 UM3 L 9.4-12.4 Methylmalonic Acid May 07, 2014 10:25am 0.74 nmol/mL H - In this sample, the concentration of methylmalonic acid(MMA) was elevated. This finding is likely related to vitamin B12 deficiency. Test Performed by: [facility] - [address] [address] News Clerk: Franklyn Myers II, M.D., Ph.D. Methylmalonic Acid, Serum performed at [facility], [address] [place], [place] [id number] Kettle Coordinator Bob Cottrell MD Monocytes # (Auto) May 17, 2014 10:00am 0.3 T/MM3 N 0-0.8 Monocytes # (Manual) April 14, 2014 10:45am 0.4 T/MM3 N 0-0.8 Monocytes % (Manual) April 14, 2014 10:45am 5.0 % N 0-9.0 Monocytes (%) (Auto) May 17, 2014 10:00am 5.5 % N 0-9.0 KN-Seg-K-Type Natriuretic Peptide January 13, 2014 4:22am 160 PG/ML N 0 -175 Rule in cut points: <50 years old=450; 50-75 years old=900; >75 years old=1800; When utilizing ProBNP rule-in cut points, adjustment for impaired renal function is typically not required. Neutrophils # (Auto) May 17, 2014 10:00am 4.1 T/MM3 N 1.8-7.7 Neutrophils # (Manual) April 14, 2014 10:45am 5.6 T/MM3 N 1.8-7.7 Neutrophils % (Manual) April 14, 2014 10:45am 80.0 % H 33-66 Neutrophils (%) (Auto) May 17, 2014 10:00am 80.1 % H 33-66 Nucleated Red Blood Cells August 17, 2013 6:04am 1 - Ovalocytes August 17, 2013 6:04am 1+ - Oxygen Delivery Method (LAB) August 29, 2013 6:25pm Room air - Percent Iron Saturation May 07, 2014 10:25am 9 % N 9-55 Percent Reticulocyte Count May 17, 2014 10:00am 2.0 % H 0.6-1.7 Phosphorus Level January 14, 2014 4:14am 2.9 MG/DL N 2.5-4.5 Platelet Count May 17, 2014 10:00am 334 T/MM3 N 130-400 Platelet Evaluation (Diff) May 31, 2013 8:30am Few - Poikilocytosis October 26, 2013 4:52am 1+ - Potassium Level May 17, 2014 10:00am 4.6 MEQ/L N 3.6-5 Prealbumin April 14, 2014 [...] FOR IMPLANTED VALVE RDW Standard Deviation May 17, 2014 10:00am 51.0 FL H 36.9-50.2 Random Cortisol August 15, 2013 6:50pm 13.2 UG/DL - Before 10:00am: 4.46-22.7 ug/dL;After 5:00pm: 1.7-14.1 ug/dL Reactive Lymphocytes # February 23, 2014 10:30am 0.1 T/MM3 H 0-0 Reactive Lymphocytes % February 23, 2014 10:30am 1.0 % H 0-0 Red Blood Count May 17, 2014 10:00am 3.01 M/MM3 L 4.00-5.20 Reticulocyte Hgb Content (CHr) May 17, 2014 10:00am 37.9 PG H 30.8- 36.6 Schistocytes May 31, 2013 8:30am 1+ - Sodium Level May 17, 2014 10:00am 138 MEQ/L N 134-144 Stone Constituent 1 December 19, 2013 10:28am See below - 90% Calcium phosphate (apatite) Stone Constituent 2 December 19, 2013 10:28am See below - 10% Calcium carbonateTest Performed by: [place] [address] News Clerk: Lonny Franz M.D. Stone Analysis performed at [facility], [address] [place] [address] Kettle Coordinator Bob Cottrell MD Stone Source December 19, [...] IU/mL - Thyroglobulin Ab screen performed at [facility], [address] [place] [address] Kettle Coordinator Marlena Cottrell MD Thyroid Stimulating Hormone (TSH) May 14, 2014 9:50am 1.77 MIU/L N 0.47-4.68 Thyroperoxidase Antibody August 15, 2013 11:10pm <3 IU/mL - Thyroperoxidase Ab (TPO) performed at [facility], [address] [place] [address] Kettle Coordinator Marlena Cottrell MD Thyroxine (T4) August 15, 2013 6:50pm 10.9 ug/dL - Thyroxine (T4) performed at [facility], [address] [place] [address] Kettle Coordinator Marlena Cottrell MD Total Bilirubin May 17, 2014 10:00am 0.30 MG/DL N 0.20-1.30 Total Creatine Kinase January 12, 2014 11:02am < 20 U/L L 30-135 COMMENT add to blood in lab from this AM. Total Iron Binding Capacity May 07, 2014 10:25am 197 UG/DL L 261-497 Total Protein May 17, 2014 10:00am 6.4 G/DL N 6.3-8.2 Triglycerides Level August 29, 2013 6:30pm 143 MG/DL H 35-135 Triiodothyonine (T3) (JOSE MIGUEL) August 15, 2013 6:50pm 92 ng/dL - T3 Total performed at [facility], [address] [place], [place] [address]Medical Director Marlena Cottrell MD Troponin I January 12, 2014 11:01am 0.012 ng/ml N 0-0.12 COMMENT add to blood already drawn in lab.COMMENT add to blood in lab from this AM. Turbidity May 17, 2014 10:00am < 20 0-20 Unconjugated Bilirubin July 22, [...] % - Eosinophil Count, Urine performed at [facility], [address] [place] [address] Kettle Coordinator Marlena Cottrell MD Urine Glucose (UA) May [...] 366 mOsm/kg - Osmolality, Urine performed at [facility], [address] [place] [address] Kettle Coordinator Marlena Cottrell MD Urine Protein May 17, [...] Has specimen been collected/obtained? Y Urine Specific [place] May 17, 2014 12:05am 1.020 - Has [...] PG/ML N 239-931 White Blood Count May 17, 2014 10:00am 5.1 T/MM3 N 4.5-11.0 Blood Culture Catheter/Port Blood [...] 8:04am Urine Culture Urine, Clean Catch-Midstream May 17, 2014 12:42am Kleb Pneumoniae Ssp Pneumoniae Gram Stain Catheter (Line) Site December 03, 2011 5:55pm Name: YVETTE ARAGON Unit #: [id number] : [id number] Sex: F Loc / Svc: ED DOS: 05/16/14 Signed Report #: [id number] DIAGNOSTIC IMAGING REPORT TYPE OF EXAM: CT [...] colostomy. . Procedures Procedure Status Date Provider(s) NEG PRESS WOUND TX </=50 CM completed 02/20/14 [id number]"ADHESIVE BORDER, EACH DRESSING" completed 02/20/14 NEG PRESS WOUND TX </=50 CM completed 02/23/14 [id number]"ADHESIVE BORDER, EACH DRESSING" completed 02/23/14 CT ABD & PELVIS W/O CONTRAST completed 02/27/14 X-RAY EXAM OF SMALL BOWEL completed 02/27/14 E&M LEVEL - FACILITY completed 03/06/14 CT THORAX W/DYE completed 03/08/14 CT ABD & PELV W/CONTRAST completed 03/08/14 [id number]"INFUSION, NORMAL SALINE SOLUTION , 250 CC" completed 03/08/14 [id number]"LOW OSMOLAR CONTRAST MATERIAL, 300-399 MG/ML IODINE C completed E&M LEVEL - FACILITY completed 03/21/14 PET IMAGE W/CT FULL BODY completed 03/14/14 [id number]"FLUORODEOXYGLUCOSE F-18 FDG, DIAGNOSTIC, PER STUDY DO completed RMVL DEVITAL TIS 20 CM/< completed 03/27/14 E& LEVEL - FACILITY completed 04/03/14 US EXAM ABDO BACK WALL COMP completed 04/05/14 EXTREMITY STUDY completed 04/05/14 X-RAY EXAM OF ABDOMEN completed 04/06/14 BLOOD TRANSFUSION SERVICE completed 04/14/14 LUIS MANUEL HOUGH MD E& LEVEL - FACILITY completed 05/14/14 ROUTINE VENIPUNCTURE [...] 10ML SDV - Contrast,Gadavist 10ml completed 05/11/14 ROUTINE VENIPUNCTURE completed 05/16/14 CT ABD & [...] ADDON completed 05/16/14 TX/PRO/DX INJ SAME DRUG UPHOLSTERER ASSEMBLY LINE completed 05/16/14 TX/PRO/DX INJ SAME DRUG UPHOLSTERER ASSEMBLY LINE completed 05/16/14 EMERGENCY DEPT VISIT completed 05/16/14 [id number] ITEM OR SERVICE completed 05/16/14 [id number]"INJECTION, KETOROLAC TROMETHAMINE, PER 15 MG" completed 05/16/14 [id number]"INJECTION, ONDANSETRON HYDROCHLORIDE, PER 1 MG" completed 05/16/14 734239"INJECTION, FENTANYL CITRATE, 0.1 MG" completed 05/16/14 [id number]"INJECTION, FENTANYL CITRATE, 0.1 MG" completed 05/16/14 [id number]"INJECTION, FENTANYL CITRATE, 0.1 MG" completed 05/16/14 [id number]"INFUSION, NORMAL SALINE SOLUTION , 1000 CC" completed 05/16/14 Encounters Encounter Location Date/Time Registered [facility] 05/17/14 10:11am Departed Emergency Room [facility] 05/16/14 9:47pm Registered [facility] 05/14/14 12:15pm Registered [facility] 05/14/14 9:58am Registered [facility] 05/11/14 7:06am Registered [facility] 05/03/14 1:28pm Registered [facility] 05/03/14 10:23am Departed Emergency Room [facility] 05/02/14 11:27am Registered [facility] 05/01/14 1:46pm Discharged Inpatient [facility] 04/14/14 3:53pm Registered Clinic [facility] 04/06/14 12:16pm Discharged Recurring [facility] 04/05/14 2:38pm Registered Clinic [facility] 04/05/14 11:53am Registered Clinic [facility] 04/03/14 1:49pm Registered Clinic [facility] 03/27/14 1:36pm Registered Clinic [facility] 03/21/14 1:39pm Registered Clinic [facility] 03/14/14 8:05am Registered Clinic [facility] 03/08/14 11:36am Registered Clinic [facility] 03/06/14 1:39pm Registered Clinic [facility] 02/27/14 8:22am Registered Clinic [facility] 02/23/14 9:06am Registered Clinic [facility] 02/20/14 1:59pm Discharged Recurring [facility] 03/10/13 8:27am
--- OUTSIDE RECORDS SUMMARY | 2016-05-16 11:18 | XMS REPORT | Continuity of Care Document ---
Author Author [facility] Organization [facility] Address Unknown Phone Unavailable Care Team Providers Care Theater Usher Name Role Phone HAMILTON RECINOS DO Primary Care Physician [phone] Insurance Providers Payer Name Policy Number Subscriber Name Relationship [facility] Community Plan [id number] Luis M Aragon 19 Self Advance Directives [...] the last 12 months Yes 01/12/2014 10:47am Quit (MM/YYYY) 02/201201/12/2014 2:25pm Tobacco Usage none [...] with diff, CMP, Mg, [place] [facility] [place] that day. Follow up with Dr. Abad WednesdayJan.23 at 2:[address] Dudley needs to be scheduled via the patient Follow up with Dr. Lizarraga WednesdayJan 26 at 9:50 Patient Instructions: Continue home health Return to care immediately if abdominal pain, nausea, vomiting, diarrhea, constipation occur. Condition at time of discharge: Good Congenital Heart Disease Screening Result: Pass Plan of Care Discharge Date 01/15/14 4:35pm Instructions/Education Provided DI for Small Bowel Obstruction Prescriptions See Medications Section Functional Status Query Response Date Recorded Physical Hygiene Self January 15, 2014 4:32pm Disabilities None August 29, 2013 3:16pm Ambulation Self August 29, 2013 1:04pm Mental Status Alert August 29, 2013 3:16pm Disabilities None August 29, 2013 3:16pm Physical Hygiene Self January 15, 2014 4:32pm Ambulation Self August 29, 2013 1:04pm Allergies, Adverse Reactions, Alerts Allergen Type Severity Reaction Status Last Updated NKDA Allergy Unknown Active 01/20/14 Immunizations Name Given Type Hx Influenza Vaccination [...] F (96.8 - 99.1) Temperature (Calculated Celsius) 36.91583 degrees C (36.0 - 37.3) Temperature Source Oral Pulse Rate (adult) 65 bpm (60 - 100) Respiratory Rate 16 breaths/min (10 - 20) O2 Sat by Pulse Oximetry 100 % (90 - 100) Oxygen Delivery Method Room Air Blood Pressure 152/97 mm Hg Blood Pressure Source Automatic Cuff Blood Pressure / Blood Pressure Source Automatic Cuff Blood Pressure / Blood Pressure Source Automatic Cuff Blood Pressure / Blood Pressure Source Automatic Cuff Blood Pressure / Blood Pressure Source Automatic Cuff Blood Pressure / Blood Pressure Source Automatic Cuff Blood Pressure / Blood Pressure Source Automatic Cuff Blood Pressure / Blood Pressure Source Automatic Cuff Blood Pressure / Blood Pressure Source Automatic Cuff Blood Pressure / Blood Pressure Source Automatic Cuff Blood Pressure / Blood Pressure Source Automatic Cuff Height (Feet) 5 feet Height (Inches) 3.00 inches Results Test Source Date Result Interp. Ref. Range Comments Absolute Reticulocyte Count October 25, 2013 1:45pm 0.0382 T/MM3 N 0.0300-0.0900 Activated Partial Thromboplast Time January 12, 2014 11:01am 40.9 SEC H 24-36 Alanine Aminotransferase (ALT/SGPT) February 19, 2014 9:35am 21 U/L N 9- 52 Albumin February 19, 2014 9:35am 2.8 G/DL L 3.5-5.0 Albumin/Globulin Ratio February 19, 2014 9:35am 0.9 RATIO L 1.1-2.2 Alcohol, Quantitative August 29, 2013 6:30pm <10 MG/DL - Alkaline Phosphatase February 19, 2014 9:35am 152 U/L H 38-126 Ammonia August 15, 2013 6:50pm < 9 UMOL/L L 9-33 COMMENT DO ON BLOOD DRAWN TODAYCOMMENT * & TSH RECEPTOR ANTIBODIES * Amylase Level January 12, 2014 7:47am < 30 U/L L 30-110 Anion Gap February 19, 2014 9:35am 10 MEQ/L N 5-15 Anisocytosis January 04, [...] 7.340 L 7.350-7.450 Aspartate Amino Transf (AST/SGOT) February 19, 2014 9:35am 14 U/L N 14- 36 BUN/Creatinine Ratio February 19, 2014 9:35am 16 RATIO N 6-26 Band Neutrophils # January 04, 2014 10:55am 1.0 T/MM3 - Band Neutrophils % January 04, 2014 10:55am 13.0 % H 0-6 Basophils # (Auto) February 19, 2014 9:35am 0.1 T/MM3 N 0-0.2 Basophils # (Manual) October 26, 2013 8:10pm 0.0 T/MM3 N 0-0.2 Basophils % (Manual) October 26, 2013 8:10pm 0.0 % N 0-2 Basophils (%) (Auto) February 19, 2014 9:35am 2.4 % H 0-2 Blood Smear Pathologist Review October 25, 2013 1:45pm Sent for review - Blood Urea Nitrogen February 19, 2014 9:35am 18.0 MG/DL H 7-17 C-Reactive Protein December 08, 2013 12:01pm 34.4 MG/L H 0-9 CA 125 Antigen February 20, 2013 3:04pm 11.6 U/ML N 0-35 Calcium Level February 19, 2014 9:35am 7.8 MG/DL L 8.4-10.2 Calculated Osmolality February 19, 2014 9:35am 277 MOSM/KG N 261-280 Carbon Dioxide Level February 19, 2014 9:35am 20 MEQ/L L 22-30 Carcinoembryonic Antigen February 05, 2014 9:10am 4.65 UG/L DH 0-3.0 Chloride Level February 19, 2014 9:35am 113 MEQ/L H 98-107 Cholesterol Level August 16, 2013 4:35am 80 MG/DL L 132-199 Cholesterol/HDL Ratio August 16, 2013 4:35am 4.0 RATIO N 0-4.0 Coagulation Factor VII October 26, 2013 9:40am 64 % L - Factor VII performed at [facility], [address] [facility], [place] [address]Swaswnk Director Marlena Cottrell MD Conjugated Bilirubin July [...] blood in lab from this AM. Creatinine February 19, 2014 9:35am 1.1 MG/DL N 0.7-1.2 D-Dimer October 27, 2013 4:30am 758 NG/ML H 0-224 <224 NG/ML= PRESUMPTIVE NEGATIVE FOR PE OR DVT>224 NG/ML=ADDITIONAL EVALUATION FOR PE OR DVT RECOMMENDED Eosinophils # (Auto) February 19, 2014 9:35am 0.1 T/MM3 N 0-0.5 Eosinophils # (Manual) January 04, 2014 10:55am 0.4 T/MM3 N 0-0.5 Eosinophils % (Manual) January 04, 2014 10:55am 5.0 % H 0-4 Eosinophils (%) (Auto) February 19, 2014 9:35am 3.6 % N 0-4 Erythrocyte Sedimentation Rate November [...] * & TSH RECEPTOR ANTIBODIES * Globulin February 19, 2014 9:35am 3.1 G/DL N 2.4-3.6 Glucose Level February 19, 2014 9:35am 91 MG/DL N 65-110 Haptoglobin October 25, 2013 1:45pm 329 mg/dL H - Haptoglobin performed at [facility], [address], [place] [address]Xtetuou Director Marlena Cottrell MD Hematocrit February 19, 2014 9:35am 36.6 % N 36-46 Hemoglobin February 19, 2014 9:35am 12.0 GM/DL N 12-16 Hemoglobin A1c June 22, 2013 4:48am [...] 2013 4:35am 45.2 L 66-159 Lactate Dehydrogenase February 19, 2014 9:35am 312 U/L L 313-618 Large Platelets April 21, 2013 9:00am Few - Lipase January 12, 2014 7:47am 28 U/L N 23-300 Lymphocytes # (Auto) February 19, 2014 9:35am 0.9 T/MM3 L 1-4.8 Lymphocytes # (Manual) January 12, 2014 7:47am 0.4 T/MM3 L 1-4.8 Lymphocytes % (Manual) January 12, 2014 7:47am 5.0 % L 23-45 Lymphocytes (%) (Auto) February 19, 2014 9:35am 26.7 % N 23-45 Magnesium Level February 19, 2014 9:35am 1.1 MG/DL L 1.6-2.3 Mean Corpuscular Hemoglobin February 19, 2014 9:35am 31.4 UUG N 26-34 Mean Corpuscular Hemoglobin Concent February 19, 2014 9:35am 32.8 GM/DL N 31-37 Mean Corpuscular Volume February 19, 2014 9:35am 95.8 UM3 N 80-100 Mean Platelet Volume February 19, 2014 9:35am 10.0 UM3 N 9.4-12.4 Monocytes # (Auto) February 19, 2014 9:35am 0.2 T/MM3 N 0-0.8 Monocytes # (Manual) January 12, 2014 7:47am 0.2 T/MM3 N 0-0.8 Monocytes % (Manual) January 12, 2014 7:47am 3.0 % N 0-9.0 Monocytes (%) (Auto) February 19, 2014 9:35am 6.2 % N 0-9.0 Neutrophils # (Auto) February 19, 2014 9:35am 2.1 T/MM3 N 1.8-7.7 Neutrophils # (Manual) January 12, 2014 7:47am 6.5 T/MM3 N 1.8-7.7 Neutrophils % (Manual) January 12, 2014 7:47am 92.0 % H 33-66 Neutrophils (%) (Auto) February 19, 2014 9:35am 60.8 % N 33-66 Nucleated Red Blood Cells [...] 4:14am 2.9 MG/DL N 2.5-4.5 Platelet Count February 19, 2014 9:35am 392 T/MM3 N 130-400 Poikilocytosis October 26, 2013 4:52am 1+ - Potassium Level February 19, 2014 9:35am 3.3 MEQ/L L 3.6-5 Prothromb Time International Ratio January 12, 2014 11:01am 1.32 H 0.81 -1.09 THERAPUTIC RANGE=2.00-3.00 FOR ANTI-THROMBOSIS THERAPUTIC RANGE=2.50- 3.50 FOR IMPLANTED VALVE RDW Standard Deviation February 19, 2014 9:35am 52.4 FL H 36.9-50.2 Random Cortisol August 15, 2013 6:50pm 13.2 UG/DL - Before 10:00am: 4.46-22.7 ug/dL;After 5:00pm: 1.7-14.1 ug/dL Red Blood Count February 19, 2014 9:35am 3.82 M/MM3 L 4.00-5.20 Reticulocyte Hgb Content (CHr) October 25, 2013 1:45pm 23.5 PG L 30.8- 36.6 Schistocytes May 31, 2013 8:30am 1+ - Sodium Level February 19, 2014 9:35am 143 MEQ/L N 134-144 Stone Source December 19, 2013 10:28am Kidney - Corrected result; previously reported as kidney on 12/19/13 at 10:56 by Stone Weight October 31, 2013 8:30am 0.039 g - COMMENT BLADDER STONE Stool Occult Blood October 25, 2013 3:00pm Negative - Has specimen been collected/obtained? YCOMMENT x3 specimans, lazarus PASTOR if positive Stool for White Cells October 25, 2013 3:00pm Positive - Has specimen been collected/obtained? Y Tear Drop Cells May 10, 2013 8:50am 1+ - Thyroid Stimulating Hormone (TSH) January 14, 2014 4:14am 61.90 MIU/L DH 0.47-4.68 Thyroxine (T4) August 15, 2013 6:50pm 10.9 ug/dL - Thyroxine (T4) performed at [facility], [address] [place] [address], [id number] Custom Framing Specialist Marlena Cottrell MD Total Bilirubin February 19, 2014 9:35am 0.30 MG/DL N 0.20-1.30 Total Creatine Kinase January 12, 2014 11:02am < 20 U/L L 30-135 COMMENT add to blood in lab from this AM. Total Iron Binding Capacity August 15, 2013 6:50pm 148 UG/DL L 261-497 COMMENT DO ON BLOOD DRAWN TODAYCOMMENT * & TSH RECEPTOR ANTIBODIES * Total Protein February 19, 2014 9:35am 5.9 G/DL L 6.3-8.2 Triglycerides Level August [...] % - Eosinophil Count, Urine performed at [facility] Reference [facility], [address] [place] [address] Custom Framing Specialist Marlena Cottrell MD Urine Glucose (UA) January [...] 366 mOsm/kg - Osmolality, Urine performed at [facility], [address], [id number] Custom Framing Specialist Marlena Cottrell MD Urine Protein January 12, [...] Has specimen been collected/obtained? Y Urine Specific [place] January 12, 2014 7:30am 1.015 - Has [...] 11.71 UG/ML L 15-20 White Blood Count February 19, 2014 9:35am 3.4 T/MM3 L 4.5-11.0 Chemistry Specimen Hemolysis February 19, 2014 9:35am < 15 0-25 0-25 : No Hemolysis.26-70: [...] below - 10% Calcium carbonateTest Performed by: [place] [id number] Electric Blasting Cap Assembler: Lonny Franz M.D. Stone Analysis performed at [facility], [address] [place] [address] Custom Framing Specialist Bob Cottrell MD Glucometer June 20, 2013 6:29pm 108 mg/dL N 65-110 Lab Scanned Report February 19, 2014 8:14pm LAB TEST FORM REQUEST [id number] - Chlamydia trachomatis Amplified DNA October 22, 2011 9:38pm Ref lab rpt scanned - --- 10/26/11722 ---CHLAMDNA previously reported as: SENT OUT HDL Cholesterol Direct August 16, 2013 4:35am 20 MG/DL L 40-60 Platelet Evaluation (Diff) May 31, 2013 8:30am Few - Turbidity February 19, 2014 9:35am < 20 0-20 Reactive Lymphocytes % October 30, 2013 4:44am 5.0 % H 0-0 Glomerular Filtration Rate Calc February 19, 2014 9:35am 53 - Thyroperoxidase Antibody August 15, 2013 11:10pm <3 IU/mL - Thyroperoxidase Ab (TPO) performed at [facility], [address] [place] [address] Custom Framing Specialist Marlena Cottrell MD Reactive Lymphocytes # October 30, 2013 4:44am 0.6 T/MM3 H 0-0 Thyroglobulin Antibody Screen August 15, 2013 6:50pm <3 IU/mL - Thyroglobulin Ab screen performed at [facility], [address] [place] [address] Custom Framing Specialist Marlena Cottrell MD Immature Granulocyte # (Auto) February 19, 2014 9:35am 0.01 T/MM3 N 0.00 -0.03 Immature Granulocyte % (Auto) February 19, 2014 9:35am 0.3 % N 0.0-0.5 Arterial Blood pO2 at [...] or septic shock highly indicated. Icterus Index February 19, 2014 9:35am < 2 0-7 Arterial Blood Lactic Acid July 27, 2012 4:28pm 0.9 MMOL/L N 0.5-0.9 OA-Ikk-V-Type Natriuretic Peptide January 13, 2014 4:22am 160 PG/ML N 0 -175 Rule in cut points: <50 years old=450; 50-75 years old=900; >75 years old=1800; When utilizing ProBNP rule-in cut points, adjustment for impaired renal function is typically not required. Triiodothyonine (T3) (JOSE MIGUEL) August 15, 2013 6:50pm 92 ng/dL - T3 Total performed at [facility], [address], [place] [address]Ywkwcwg Director Marlena Cottrell MD C. difficile Toxin [...] LORAINE Preparation Other December 05, 2013 11:30am Urine Culture Urine, Clean Catch-Midstream December 26, 2013 2:41pm Mixed Gram Positive Organisms Gram Stain Catheter (Line) Site December 03, 2011 5:55pm Gram Stain Bladder October 31, 2013 8:04am Ova and Parasites Stool October 25, 2013 3:00pm Name: LUIS M ARAGON Unit #: [id number] : [id number] Sex: F Loc / Svc: [facility] DOS: 02/08/14 Signed Report #: [id number] DIAGNOSTIC IMAGING REPORT TYPE OF EXAM: UPPER GI/KUB/SM BOWEL Dictated By: NORM PALMER MD UPPER GI WITH SMALL BOWEL FOLLOW-THROUGH: Technique: The patient swallowed diluted Gastrografin without difficulty. Fluoroscopic imaging of the esophagus and stomach was obtained in the upright LPO, supine AP, LPO, RPO, and right lateral positions. Following this, conventional x-ray imaging of the small bowel was obtained in timed intervals. However, the patient left the hospital before the study could be completed. Contrast is not seen throughout the entire small bowel for complete evaluation. Findings: Esophagus: The esophagus is negative. Esophageal motility appears normal. The cricopharyngeus muscle relaxes completely. There is no Zenker's diverticulum. No hiatal hernial or gastroesophageal reflux is visualized. Stomach: The stomach is negative. It appears normal in contour and appearance. No obvious ulcer is identified. There is no filling defect to suggest a mass. Small bowel follow-through: Again, contrast is not visualized throughout the entire small bowel. The visualized portions of the small bowel appear normal. The duodenal sweep crosses midline in normal fashion. There is no malrotation. There is no obstruction of the visualized portions of the small bowel. Impression: 1. The esophagus and stomach are negative. 2. Incomplete study of the small bowel. The visualized portions of the small bowel that can be evaluated are negative. There is no obstruction in the proximal to mid small bowel. 3. Bilateral ureteral stents. Norm Long, FRANCESCA/RA performed this under my direct supervision. . Procedures Procedure Status Date Provider(s) CYSTOSCOPY AND TREATMENT completed 12/05/13 REYNA PATE [...] PRESS WOUND TX </=50 CM completed 01/02/14 134667"ADHESIVE BORDER, EACH DRESSING" completed 01/02/14 NEG PRESS WOUND TX </=50 CM completed 01/09/14 [id number]"OSTOMY SKIN BARRIER, PECTIN-BASED, PASTE, PER OUNCE" completed [id number]"ADHESIVE BORDER, EACH DRESSING" completed 01/09/14 X-RAY EXAM OF ABDOMEN completed 01/04/14 X-RAY EXAM OF ABDOMEN completed 01/08/14 NEG PRESS WOUND TX </=50 CM completed 01/23/14 [id number]"ADHESIVE BORDER, EACH DRESSING" completed 01/23/14 NEG PRESS WOUND TX </=50 CM completed 01/30/14 [id number]"ADHESIVE BORDER, EACH DRESSING" completed 01/30/14 X-RAY EXAM OF ABDOMEN completed 01/29/14 NEG PRESS WOUND TX </=50 CM completed 02/06/14 [id number]"ADHESIVE BORDER, EACH DRESSING" completed 02/06/14 X-RAY EXAM OF ABDOMEN completed 02/05/14 X-RAY UPPER GI&SMALL INTEST completed 02/08/14 Encounters Encounter Location Date/Time Registered [facility] 02/20/14 1:59pm Discharged [facility] 02/19/14 9:50am Registered [facility] 02/13/14 1:57pm Registered [facility] 02/08/14 12:26pm Registered [facility] 02/07/14 9:58am Registered [facility] 02/06/14 1:33pm Registered [facility] 02/05/14 10:21am Registered [facility] 01/30/14 1:30pm Registered [facility] 01/29/14 11:20am Registered [facility] 01/23/14 1:57pm Discharged Inpatient [facility] 01/12/14 9:38am Registered Clinic [facility] 01/09/14 1:58pm Registered Clinic [facility] 01/08/14 11:07am Registered Clinic [facility] 01/04/14 3:11pm Registered Clinic [facility] 01/02/14 1:23pm Discharged Inpatient [facility] 12/25/13 9:56pm Registered Clinic [facility] 12/12/13 1:27pm Registered Clinic [facility] 12/08/13 12:20pm Registered Clinic [facility] 12/08/13 11:48am Registered Clinic [facility] 12/06/13 10:08am Registered Clinic [facility] 12/04/13 11:20am Registered Clinic [facility] 12/01/13 9:33am Registered Clinic [facility] 11/28/13 1:25pm
--- OUTSIDE RECORDS SUMMARY | 2016-05-16 11:19 | XMS REPORT | Continuity of Care Document ---
Author Author [facility] Organization [facility] Address Unknown Phone Unavailable Care Team Providers Care Document Design Specialist Name Role Phone HAMILTON RECINOS DO Primary Care Physician [phone] Insurance Providers Payer Name Policy Number Subscriber Name Relationship [facility] Community Plan [id number] Luis M Berman 19 Self Advance Directives [...] A DAY 7 Days 10/18/13 11/02/13 Discontinued Fluconazole 1 Tab PO DAILY 30 Days 11/02/13 Active Vancomycin HCl 500 Mg PO Q6H/0300,0900,1500,2100 10 Days 11/02/13 Active Hydrocodone/Acetaminophen 1-2 Tab PO Q4H PRN BREAKTHROUGH PAIN 30 Days 11/02/13 Active Methimazole 60 Mg PO DAILY 30 Qty 11/02/13 Active Ondansetron 4 Mg PO Q6H/0300,0900,1500,2100 PRN NAUSEA &/OR VOMITING 120 Qty 11/02/13 Active Gabapentin 400 Mg PO TWICE A DAY 30 Days 11/02/13 Active Pantoprazole Sodium 40 Mg PO DAILY 30 Qty Take 1 tablet, by mouth, 2 times a day before Breakfast and 11/02/13 Active Loperamide HCl 2 Mg PO Every 6 Hours PRN PRN ORDERS 30 Days 11/02/13 Active Fentanyl 1 Patch TD Q3D 10 Qty 11/02/13 Active Social History Social History Problem Response Recorded Date/Time Smoking Status Current every day smoker 08/29/2013 4:02pm Chewing Tobacco Status No 08/29/2013 1:04pm Hx Substance Use No 10/18/2013 12:43pm Hx Alcohol Use No 10/18/2013 12:43pm Has the pt used tobacco in the last 12 months No 11/14/2013 1:47pm Query Response Start Date Stop Date Smoking [...] care Condition at time of discharge: Good Call your Surgeon if you have: 1.Chest pain, difficulty breathing, fever>100.5 degrees, chills, heart rate >100, confusion, or persistent nausea/vomitting. 2.Severe pain, swelling, redness, or warmth in either of your legs. 3.During office hours, call [phone] 4. After hours, please call [facility] at [phone], and have the dipper operator page your Surgeon IN THE EVENT OF AN EMERGENCY, seek medical care at the nearest Emergency Room Condition at time of discharge: Good Care Plan Discharge Patient: Goal: Maximum functional status Patient Instructions: see patient instructions Plan of Care Discharge Date 11/02/13 4:38pm [...] Name Given Type Hx Influenza Vaccination Y FALL 2012 Historical Hx Pneumococcal Vaccination Y 2012 Historical Hx Influenza Vaccination Y FALL 2012 Historical Vital Signs Acute Vital Signs Vital Response Date/Time Temperature (Fahrenheit) 98.6 deg F (96.8 - 99.1) Temperature (Calculated Celsius) 37.60333 degrees C (36.0 - 37.3) Temperature Source Temporal Pulse Rate (adult) 85 bpm (60 - 100) Respiratory Rate 16 breaths/min (10 - 20) O2 Sat by Pulse Oximetry 100 % (90 - 100) Oxygen Delivery Method Room Air Blood Pressure 144/67 mm Hg Blood Pressure Source Automatic Cuff Results Test Source Date Result Interp. Ref. Range Comments Absolute Reticulocyte Count October 25, 2013 1:45pm 0.0382 T/MM3 N 0.0300-0.0900 Activated Partial Thromboplast Time November 08, 2013 4:00pm 37.7 SEC H 24-36 Alanine Aminotransferase (ALT/SGPT) November 13, 2013 9:43am 16 U/L N 9 -52 Albumin November 13, 2013 9:43am 2.3 G/DL L 3.5-5.0 Albumin/Globulin Ratio November 13, 2013 9:43am 0.7 RATIO L 1.1-2.2 Alcohol, Quantitative August 29, 2013 6:30pm <10 MG/DL - Alkaline Phosphatase November 13, 2013 9:43am 128 U/L H 38-126 Ammonia August 15, 2013 6:50pm < 9 UMOL/L L 9-33 COMMENT DO ON BLOOD DRAWN TODAYCOMMENT * & TSH RECEPTOR ANTIBODIES * Amylase Level October 18, 2013 1:25pm < 30 U/L L 30-110 Anion Gap November 13, 2013 9:43am 8 MEQ/L N 5-15 Anisocytosis October 30, 2013 [...] 7.340 L 7.350-7.450 Aspartate Amino Transf (AST/SGOT) November 13, 2013 9:43am 12 U/L L 14- 36 BUN/Creatinine Ratio November 13, 2013 9:43am 14 RATIO N 6-26 Band Neutrophils # November 01, 2013 5:12am 0.2 T/MM3 - Band Neutrophils % November 01, 2013 5:12am 3.0 % N 0-6 Basophils # (Auto) November 13, 2013 9:43am 0.1 T/MM3 N 0-0.2 Basophils # (Manual) October 26, 2013 8:10pm 0.0 T/MM3 N 0-0.2 Basophils % (Manual) October 26, 2013 8:10pm 0.0 % N 0-2 Basophils (%) (Auto) November 13, 2013 9:43am 1.0 % N 0-2 Blood Smear Pathologist Review October 25, 2013 1:45pm Sent for review - Blood Urea Nitrogen November 13, 2013 9:43am 13.0 MG/DL N 7-17 C-Reactive Protein November 02, 2013 4:37am 29.6 MG/L H 0-9 CA 125 Antigen February 20, 2013 3:04pm 11.6 U/ML N 0-35 Calcium Level November 13, 2013 9:43am 8.0 MG/DL L 8.4-10.2 Calculated Osmolality November 13, 2013 9:43am 275 MOSM/KG N 261-280 Carbon Dioxide Level November 13, 2013 9:43am 27 MEQ/L N 22-30 Carcinoembryonic Antigen October 25, 2013 9:35am 2.26 UG/L DN 0-3.0 Chloride Level November 13, 2013 9:43am 108 MEQ/L H 98-107 Cholesterol Level August 16, 2013 4:35am 80 MG/DL L 132-199 Cholesterol/HDL Ratio August 16, 2013 4:35am 4.0 RATIO N 0-4.0 Coagulation Factor VII October 26, 2013 9:40am 64 % L - Factor VII performed at [facility] [address], [address] [place], [place] [address]Bj[place] Director Marlena Cottrell MD Conjugated Bilirubin July [...] 2012 3:30pm < 0.2 NG/ML 0-3.4 Creatinine November 13, 2013 9:43am 0.9 MG/DL N 0.7-1.2 D-Dimer October 27, 2013 4:30am 758 NG/ML H 0-224 <224 NG/ML= PRESUMPTIVE NEGATIVE FOR PE OR DVT>224 NG/ML=ADDITIONAL EVALUATION FOR PE OR DVT RECOMMENDED Eosinophils # (Auto) November 13, 2013 9:43am 0.4 T/MM3 N 0-0.5 Eosinophils # (Manual) November 01, 2013 5:12am 0.3 T/MM3 N 0-0.5 Eosinophils % (Manual) November 01, 2013 5:12am 4.0 % N 0-4 Eosinophils (%) (Auto) November 13, 2013 9:43am 4.8 % H 0-4 Erythrocyte Sedimentation Rate November [...] * & TSH RECEPTOR ANTIBODIES * Globulin November 13, 2013 9:43am 3.3 G/DL N 2.4-3.6 Glucose Level November 13, 2013 9:43am 92 MG/DL N 65-110 Haptoglobin October 25, 2013 1:45pm 329 mg/dL H - Haptoglobin performed at [facility], [address], [place] [address]Oz[place]nck Director Marlena Cottrell MD Hematocrit November 13, 2013 9:43am 24.9 % L 36-46 Hemoglobin November 13, 2013 9:43am 7.5 GM/DL L 12-16 Hemoglobin A1c June 22, [...] 2013 4:35am 45.2 L 66-159 Lactate Dehydrogenase November 13, 2013 9:43am 229 U/L L 313-618 Large Platelets April 21, 2013 9:00am Few - Lipase October 25, 2013 1:45pm 19 U/L L 23-300 COMMENT add to blood already in lab. Lymphocytes # (Auto) November 13, 2013 9:43am 0.9 T/MM3 L 1-4.8 Lymphocytes # (Manual) November 01, 2013 5:12am 0.6 T/MM3 L 1-4.8 Lymphocytes % (Manual) November 01, 2013 5:12am 7.0 % L 23-45 Lymphocytes (%) (Auto) November 13, 2013 9:43am 12.2 % L 23-45 Magnesium Level November 13, 2013 9:43am 1.3 MG/DL L 1.6-2.3 Mean Corpuscular Hemoglobin November 13, 2013 9:43am 29.4 UUG N 26-34 Mean Corpuscular Hemoglobin Concent November 13, 2013 9:43am 30.1 GM/DL L 31-37 Mean Corpuscular Volume November 13, 2013 9:43am 97.6 UM3 N 80-100 Mean Platelet Volume November 13, 2013 9:43am 8.9 UM3 L 9.4-12.4 Monocytes # (Auto) November 13, 2013 9:43am 0.6 T/MM3 N 0-0.8 Monocytes # (Manual) November 01, 2013 5:12am 0.2 T/MM3 N 0-0.8 Monocytes % (Manual) November 01, 2013 5:12am 3.0 % N 0-9.0 Monocytes (%) (Auto) November 13, 2013 9:43am 8.3 % N 0-9.0 Neutrophils # (Auto) November 13, 2013 9:43am 5.6 T/MM3 N 1.8-7.7 Neutrophils # (Manual) November 01, 2013 5:12am 6.7 T/MM3 N 1.8-7.7 Neutrophils % (Manual) November 01, 2013 5:12am 83.0 % H 33-66 Neutrophils (%) (Auto) November 13, 2013 9:43am 73.6 % H 33-66 Nucleated Red Blood Cells [...] 4:35am 4.1 MG/DL N 2.5-4.5 Platelet Count November 13, 2013 9:43am 504 T/MM3 H 130-400 Poikilocytosis October 26, 2013 4:52am 1+ - Potassium Level November 13, 2013 9:43am 3.8 MEQ/L N 3.6-5 Prothromb Time International Ratio November 08, 2013 4:00pm 1.03 N 0.81 -1.09 THERAPUTIC RANGE=2.00-3.00 FOR ANTI-THROMBOSIS THERAPUTIC RANGE=2.50- 3.50 FOR IMPLANTED VALVE RDW Standard Deviation November 13, 2013 9:43am 52.4 FL H 36.9-50.2 Random Cortisol August 15, 2013 6:50pm 13.2 UG/DL - Before 10:00am: 4.46-22.7 ug/dL;After 5:00pm: 1.7-14.1 ug/dL Red Blood Count November 13, 2013 9:43am 2.55 M/MM3 L 4.00-5.20 Reticulocyte Hgb Content (CHr) October 25, 2013 1:45pm 23.5 PG L 30.8- 36.6 Schistocytes May 31, 2013 8:30am 1+ - Sodium Level November 13, 2013 9:43am 143 MEQ/L N 134-144 Stone Source October 31, 2013 8:30am Kidney - Stone Analysis performed at [facility], , [place] [id number] Director Bob Cottrell, Corrected result; previously reported as KIDNEY on 10/31/13 at 11:56 by Bethany/KVNG --- 11/01/132128 --- STOS previously reported as: KIDNEY Stone Analysis performed at [facility], , [place] [address] [employer] Bob Cottrell, Stone Weight October 31, 2013 8:30am 0.039 g - COMMENT BLADDER STONE Stool Occult Blood October 25, 2013 3:00pm Negative - Has specimen been collected/obtained? YCOMMENT x3 jessica, lazarus PASTOR if positive Stool for White Cells October 25, 2013 3:00pm Positive - Has specimen been collected/obtained? Y Tear Drop Cells May 10, 2013 8:50am 1+ - Thyroid Stimulating Hormone (TSH) October 25, 2013 1:45pm < 0.02 MIU/L L 0.47-4.68 Thyroxine (T4) August 15, 2013 6:50pm 10.9 ug/dL - Thyroxine (T4) performed at [facility], [address] [place] [address] [employer] Marlena Cottrell MD Total Bilirubin November 13, 2013 9:43am 0.20 MG/DL N 0.20-1.30 Total Creatine Kinase July 01, 2012 3:30pm < 20 U/L L 30-135 Total Iron Binding Capacity August 15, 2013 6:50pm 148 UG/DL L 261-497 COMMENT DO ON BLOOD DRAWN TODAYCOMMENT * & TSH RECEPTOR ANTIBODIES * Total Protein November 13, 2013 9:43am 5.6 G/DL L 6.3-8.2 Triglycerides Level August 29, 2013 6:30pm 143 MG/DL H 35-135 Troponin I October 25, 2013 1:45pm < 0.012 ng/ml 0-0.12 Unconjugated Bilirubin July 22, 2012 12:50am 0.10 MG/DL N 0.00-1.10 Urine Amorphous Urates November 30, 2011 3:00pm Many - Has specimen been collected/obtained? Y Urine Bacteria November 07, 2013 10:22am None seen - Urine Bilirubin November 07, 2013 10:22am Negative - Urine Blood November 07, 2013 10:22am 2+ H - Urine Collection Type November 07, 2013 10:22am Straight cath - Urine Color November 07, 2013 10:22am Yellow - Urine Culture Indicated October 28, 2013 11:26pm Cult ordered & setup - Has specimen been collected/obtained? Y Urine Eosinophils October 30, 2013 1:51pm 0 % - Eosinophil Count, Urine performed at [facility], [address] [place] [address] [employer] Marlena Cottrell MD Urine Glucose (UA) November 07, 2013 10:22am Negative - Urine Ketones November 07, 2013 10:22am Negative - Urine Leukocyte Esterase November 07, 2013 10:22am 2+ H - Urine Nitrite November 07, 2013 10:22am Negative - Urine Osmolality October 30, 2013 1:51pm 366 mOsm/kg - Osmolality, Urine performed at [facility], [address] [place] [address] President[employer] Marlena Cottrell MD Urine Protein November 07, 2013 10:22am Negative - Urine RBC November 07, 2013 10:22am 1-3 /HPF - Urine Random Creatinine October 30, 2013 1:51pm 19.7 MG/DL - Has specimen been collected/obtained? Y Urine Random Sodium October 30, 2013 1:51pm 166 MEQ/L H 30-90 Has specimen been collected/obtained? Y Urine Specific [place] November 07, 2013 10:22am 1.010 L - Urine Squamous Epithelial Cells November 07, 2013 10:22am 0-5 - Urine Transitional Epithelial Cells August 29, 2013 6:30am 3-5 /HPF - Has specimen been collected/obtained? Y Urine Turbidity November 07, 2013 10:22am Clear - Urine Urobilinogen November 07, 2013 10:22am 0.2 EU/DL - Urine WBC November 07, 2013 10:22am 3-5 /HPF - Urine WBC Clumps August 29, 2013 6:30am None seen - Has specimen been collected/obtained? Y Urine Yeast October 30, 2013 1:51pm 1+ H - COMMENT please do urine microscopy.Has specimen been collected/obtained? Y Urine pH November 07, 2013 10:22am 6.5 - VLDL Cholesterol August 16, 2013 4:35am 14.8 MG/DL N 0-28 Vancomycin Level Trough October 31, 2013 8:51am 11.71 UG/ML L 15-20 White Blood Count November 13, 2013 9:43am 7.7 T/MM3 N 4.5-11.0 Chemistry Specimen Hemolysis November 13, 2013 9:43am < 15 0-25 0-25 : No Hemolysis.26-70: [...] 6:25pm Room air - Stone Constituent 1 October 31, 2013 8:30am See below - 90% Calcium phosphate (apatite) Stone Constituent 2 October 31, 2013 8:30am See below - 10% Calcium carbonateTest Performed by: [place] [address] Pack Master: Sunny Rojas III, M.D. Stone Analysis performed at [facility], [address] [place] [address] [employer] Bob Cottrell MD Glucometer June 20, 2013 6:29pm 108 mg/dL N 65-110 Lab Scanned Report November 13, 2013 10:41am LAB TEST FORM REQUEST [id number] - Chlamydia trachomatis Amplified DNA October 22, 2011 9:38pm Ref lab rpt scanned - --- 10/26/11 0723 ---CHLAMDNA previously reported as: SENT OUT HDL Cholesterol Direct August 16, 2013 4:35am 20 MG/DL L 40-60 Platelet Evaluation (Diff) May 31, 2013 8:30am Few - Turbidity November 13, 2013 9:43am < 20 0-20 Reactive Lymphocytes % October 30, 2013 4:44am 5.0 % H 0-0 Glomerular Filtration Rate Calc November 13, 2013 9:43am 67 - Thyroperoxidase Antibody August 15, 2013 11:10pm <3 IU/mL - Thyroperoxidase Ab (TPO) performed at [facility], [address] [place] [address] [employer] Marlena Cottrell MD Reactive Lymphocytes # October 30, 2013 4:44am 0.6 T/MM3 H 0-0 Thyroglobulin Antibody Screen August 15, 2013 6:50pm <3 IU/mL - Thyroglobulin Ab screen performed at [facility], [address] [place] [address] [employer] Marlena Cottrell MD Immature Granulocyte # (Auto) November 13, 2013 9:43am 0.01 T/MM3 N 0.00-0.03 Immature Granulocyte % (Auto) November 13, 2013 9:43am 0.1 % N 0.0-0.5 Arterial Blood pO2 at Patient Temp August 29, 2013 6:25pm 90 MMHG N 80- 100 Venous Blood Lactate October 25, 2013 1:45pm 0.8 MMOL/L N 0.6-2.2 Beta HCG, Quantitative December 08, 2011 8:40pm < 2.39 UIU/ML - NON- INDIVIDUALS=0 - 4.83;SAMPLES BETWEEN 4.83 - 25 SHOULD BE RE-TESTED AFTER 48 HOURS IF IS SUSPECTED; GESTATION 1-10 WEEKS: 45-256,380; 11-15 WEEKS: 11,556-265,380; 16-22 WEEKS: 27,023-111,954; 23-40 WEEKS: 24,031-101,566 Procalcitonin October 25, 2013 1:45pm 0.11 NG/ML - PCT </=0.5 ng/ mL - sepsis not likely;PCT >0.5 and </=2 ng/mL - sepsis possible; PCT >2 ng/mL - sepsis likely; PCT >/=10 ng/mL - systemic inflammatory response - sepsis or septic shock highly indicated. Icterus Index November 13, 2013 9:43am < 2 0-7 Arterial Blood Lactic Acid July 27, 2012 4:28pm 0.9 MMOL/L N 0.5-0.9 Triiodothyonine (T3) (JOSE MIGUEL) August 15, 2013 6:50pm 92 ng/dL - T3 Total performed at [facility], [address] [facility], [place], [place] [address] Director Marlena Cottrell MD C. difficile Toxin B Gene (PCR) October 28, 2013 11:25pm Positive H - Has specimen been collected/obtained? Y Blood Culture Blood October 28, 2013 9:37pm NO GROWTH AFTER 5 DAYS Gram Stain Drainage-Surgical Wound December 08, 2011 9:00pm Gram Stain Rectum November 07, 2013 10:20am Gram Stain Cervix October 22, 2011 9:25pm Urine Culture Urine, Straight Cath November 07, 2013 10:22am Gram Stain Catheter (Line) Site December 03, 2011 5:55pm Gram Stain Bladder October 31, 2013 8:04am Ova and Parasites Stool October 25, 2013 3:00pm Name: LUIS M BERMAN Unit #: [id number] : 1965 Sex: F Loc / Svc: MED DOS: Signed Report #: [id number] DIAGNOSTIC IMAGING REPORT TYPE OF EXAM: RF RETROGRADE PYELOGRAM BILAT. Dictated By: SASCHA CEDILLO MD INDICATION: ITS.REASON: BILAT RETROGRADE / BILAT STENT EXCHANGE COMPARISON: CT 10/30/13 RF RETROGRADE PYELOGRAM BILAT.: 12 fluoroscopic images for bilateral ureteral stent exchange. Retrograde injection show evidence of moderate bilateral hydronephrosis. . Procedures Procedure Status Date Provider(s) CYSTOSCOPY AND TREATMENT completed 08/15/13 REYNA PATE MD CYSTOSCOPY & URETER CATHETER completed 08/15/13 REYNA PATE MD CYSTOSCOPY AND TREATMENT completed 08/15/13 REYNA PATE MD THER/PROPH/DIAG INJ IV PUSH completed 08/29/13 TX/PRO/DX INJ NEW DRUG ADDON completed 08/29/13 TX/PRO/DX INJ NEW DRUG ADDON completed 08/29/13 TX/PRO/DX INJ SAME DRUG MACHINE ATTENDANT completed 08/29/13 HYDRATE IV INFUSION ADD-ON completed 08/29/13 RPR S/N/AX/GEN/TRNK 2.5CM/< completed 10/10/13 DUSTIN MILES MD BLOOD TRANSFUSION SERVICE completed 10/25/13 HAMILTON RECINOS DO CYSTOSCOPY AND TREATMENT completed 10/25/13 REYNA PATE MD CYSTOSCOPY & URETER CATHETER completed 10/25/13 REYNA PATE MD CYSTOSCOPY AND TREATMENT completed 10/25/13 REYNA PATE MD Encounters Encounter Location Date/Time Registered [facility] 11/15/13 1:39pm Discharged Recurring [facility] 11/14/13 8:42am Registered [facility] 11/13/13 9:48am Registered [facility] 11/08/13 4:28pm Registered [facility] 11/08/13 9:01am Registered [facility] 11/07/13 10:27am Discharged Inpatient [facility] 10/25/13 12:11pm Departed Emergency Room [facility] 10/18/13 11:25am Departed Emergency Room [facility] 10/10/13 8:36pm Registered [facility] 09/13/13 9:03am Registered [facility] 09/04/13 12:22pm Discharged Inpatient [facility] 08/29/13 3:12pm Departed Emergency Room [facility] 08/29/13 5:36am Registered [facility] 08/24/13 7:07am Registered [facility] 08/21/13 12:49pm Registered [facility] 08/21/13 9:03am Discharged Inpatient [facility] 08/15/13 8:45pm
--- OUTSIDE RECORDS SUMMARY | 2016-05-16 11:19 | XMS REPORT | Continuity of Care Document ---
Author Author [facility] Organization [facility] Address Unknown Phone Unavailable Care Team Providers Care Hospice Physician Name Role Phone HAMILTON RECINOS DO Primary Care Physician [phone] Insurance Providers Payer Name Policy Number Subscriber Name Relationship [facility] Community Plan [id number] Luis M Aragon 19 Self Advance Directives Directive Response Recorded Date/Time Advanced Directives Type None 08/29/13 4:00pm Ordered Resuscitation Status Full Code 06/19/13 10:41am Resuscitation Documents on File No 10/25/13 5:30pm Problems Medical Problems Problem Onset Date Status [...] 08/29/2013 4:02pm When did patient START smoking? At the age of 15 through the age of42 2013 10:20am When did patient STOP smoking? At the age of 42 10/29/2013 10:20am Chewing Tobacco Status No 08/29/2013 1:04pm Hx Substance Use No 10/18/2013 12:43pm Hx Alcohol Use No 10/18/2013 12:43pm Has the pt used tobacco in the last 12 months No 10/29/2013 10:20am Query Response Start Date Stop Date Smoking [...] appointment Dr. Jarrell in 1-[address] Bennett next wednesday Dr. Dudley in 1-2 months [...] care Condition at time of discharge: Good Good Care Plan Discharge Patient: Patient Instructions: see patient instructions Plan of Care Discharge Date 11/02/13 4:38pm Disposition 06 HOME HEALTH SERVICE Instructions/Education Provided Antibiotic-associated Colitis -- C difficile Anemia DI for Dehydration -- Adult Prescriptions See Medications Section Functional Status Query Response Date Recorded Physical Hygiene Self November 02, 2013 4:23pm Disabilities None August 29, 2013 3:16pm Devices Used Glasses November 02, 2013 4:23pm Dressing Self November 02, 2013 4:23pm Ambulation Self August 29, 2013 1:04pm Diet Self November 02, 2013 4:23pm Mental Status Alert August 29, 2013 3:16pm Disabilities None August 29, 2013 3:16pm Devices Used Glasses November 02, 2013 4:23pm Physical Hygiene Self November 02, 2013 4:23pm Dressing Self November 02, 2013 4:23pm Ambulation Self August 29, 2013 1:04pm Diet Self November 02, 2013 4:23pm Allergies, Adverse Reactions, Alerts Allergen Type Severity Reaction Status Last Updated No Known Allergies Active 10/10/13 Immunizations Name Given Type Hx Influenza Vaccination Yes Historical Hx Pneumococcal Vaccination Y [id number] Historical Hx Influenza Vaccination Yes Historical Vital Signs Acute Vital Signs Vital Response Date/Time Temperature (Fahrenheit) 98.8 deg F (96.8 - 99.1) Temperature (Calculated Celsius) 37.04986 degrees C (36.0 - 37.3) Temperature Source Oral Pulse Rate (adult) 77 bpm (60 - 100) Respiratory Rate 16 breaths/min (10 - 20) O2 Sat by Pulse Oximetry 99 % (90 - 100) Oxygen Delivery Method Room Air Blood Pressure 153/93 mm Hg Blood Pressure Source Automatic Cuff Height 5 ft 3 in Weight 139 lb Body Mass Index 24.0 kg/m^2 Results Test Source Date Result Interp. Ref. Range Comments Absolute Reticulocyte Count October 25, 2013 1:45pm 0.0382 T/MM3 N 0.0300-0.0900 Activated Partial Thromboplast Time October 27, 2013 4:30am 40.1 SEC H 24-36 Ordering r/o VTE No Alanine Aminotransferase (ALT/SGPT) November 02, 2013 4:37am 17 U/L N 9 -52 Albumin November 02, 2013 4:37am 2.0 G/DL L 3.5-5.0 Albumin/Globulin Ratio November 02, 2013 4:37am 0.7 RATIO L 1.1-2.2 Alcohol, Quantitative August 29, 2013 6:30pm <10 MG/DL - Alkaline Phosphatase November 02, 2013 4:37am 113 U/L N 38-126 Ammonia August 15, 2013 6:50pm < 9 UMOL/L L 9-33 COMMENT DO ON BLOOD DRAWN TODAYCOMMENT * & TSH RECEPTOR ANTIBODIES * Amylase Level October 18, 2013 1:25pm < 30 U/L L 30-110 Anion Gap November 02, 2013 4:37am 9 MEQ/L N 5-15 Anisocytosis October 30, 2013 [...] N 80- 100 Aspartate Amino Transf (AST/SGOT) November 02, 2013 4:37am 8 U/L L 14- 36 BUN/Creatinine Ratio November 02, 2013 4:37am 8 RATIO N 6-26 Band Neutrophils # November 01, 2013 5:12am 0.2 T/MM3 - Band Neutrophils % November 01, 2013 5:12am 3.0 % N 0-6 Basophils # (Auto) November 02, 2013 4:37am 0.1 T/MM3 N 0-0.2 Basophils # (Manual) October 26, 2013 8:10pm 0.0 T/MM3 N 0-0.2 Basophils % (Manual) October 26, 2013 8:10pm 0.0 % N 0-2 Basophils (%) (Auto) November 02, 2013 4:37am 0.5 % N 0-2 Beta HCG, Quantitative December 08, 2011 8:40pm < 2.39 UIU/ML - NON- INDIVIDUALS=0 - 4.83;SAMPLES BETWEEN 4.83 - 25 SHOULD BE RE-TESTED AFTER 48 HOURS IF IS SUSPECTED; GESTATION 1-10 WEEKS: 45-256,380; 11-15 WEEKS: 11,556-265,380; 16-22 WEEKS: 27,023-111,954; 23-40 WEEKS: 24,031-101,566 Blood Smear Pathologist Review October 25, 2013 1:45pm Sent for review - Blood Urea Nitrogen November 02, 2013 4:37am 9.0 MG/DL N 7-17 C-Reactive Protein November 02, 2013 4:37am 29.6 MG/L H 0-9 C. difficile Toxin B Gene (PCR) October 28, 2013 11:25pm Positive H - Has specimen been collected/obtained? Y CA 125 Antigen February 20, 2013 3:04pm 11.6 U/ML N 0-35 Calcium Level November 02, 2013 4:37am 7.5 MG/DL L 8.4-10.2 Calculated Osmolality November 02, 2013 4:37am 277 MOSM/KG N 261-280 Carbon Dioxide Level November 02, 2013 4:37am 27 MEQ/L N 22-30 Carcinoembryonic Antigen October 25, 2013 9:35am 2.26 UG/L DN 0-3.0 Chemistry Specimen Hemolysis November 02, 2013 4:37am < 15 0-25 0-25 : No Hemolysis.26-70: [...] previously reported as: SENT OUT Chloride Level November 02, 2013 4:37am 108 MEQ/L H 98-107 Cholesterol Level August 16, 2013 4:35am 80 MG/DL L 132-199 Cholesterol/HDL Ratio August 16, 2013 4:35am 4.0 RATIO N 0-4.0 Coagulation Factor VII October 26, 2013 9:40am 64 % L - Factor VII performed at [facility], [address] [facility], [place] [address] Director Marlena Cottrell MD Conjugated Bilirubin July [...] 3:30pm < 0.2 NG/ML 0-3.4 Creatinine November 02, 2013 4:37am 1.2 MG/DL N 0.7-1.2 D-Dimer October 27, 2013 4:30am 758 NG/ML H 0-224 <224 NG/ML= PRESUMPTIVE NEGATIVE FOR PE OR DVT>224 NG/ML=ADDITIONAL EVALUATION FOR PE OR DVT RECOMMENDED Eosinophils # (Auto) November 02, 2013 4:37am 0.5 T/MM3 N 0-0.5 Eosinophils # (Manual) November 01, 2013 5:12am 0.3 T/MM3 N 0-0.5 Eosinophils % (Manual) November 01, 2013 5:12am 4.0 % N 0-4 Eosinophils (%) (Auto) November 02, 2013 4:37am 5.2 % H 0-4 Erythrocyte Sedimentation Rate November [...] & TSH RECEPTOR ANTIBODIES * Globulin November 02, 2013 4:37am 2.7 G/DL N 2.4-3.6 Glomerular Filtration Rate Calc November 02, 2013 4:37am 48 - Glucometer June 20, 2013 6:29pm 108 mg/dL N 65-110 Glucose Level November 02, 2013 4:37am 108 MG/DL N 65-110 HDL Cholesterol Direct August 16, 2013 4:35am 20 MG/DL L 40-60 Haptoglobin October 25, 2013 1:45pm 329 mg/dL H - Haptoglobin performed at [facility], [address] [facility], [place], [place] [address]Zhhzngk Director Marlena Cottrell MD Hematocrit November 02, 2013 4:37am 26.8 % L 36-46 Hemoglobin November 02, 2013 4:37am 8.0 GM/DL L 12-16 Hemoglobin A1c June 22, 2013 4:48am 4.9 % L 6-7 <6.0 NON-DIABETIC RANGE6.0-7.0 ADA THERAPEUTIC RANGE >7.0 ACTION SUGGESTED Hypochromasia October 26, 2013 4:52am 1+ - Icterus Index November 02, 2013 4:37am < 2 0-7 Immature Granulocyte # (Auto) November 02, 2013 4:37am 0.02 T/MM3 N 0.00-0.03 Immature Granulocyte % (Auto) November 02, 2013 4:37am 0.2 % N 0.0-0.5 Immature Reticulocyte Fraction October [...] 4:35am 45.2 L 66-159 Lab Scanned Report October 25, 2013 12:02pm LAB TEST FORM REQUEST [id number] - Lactate Dehydrogenase October 25, 2013 1:45pm 193 U/L L 313-618 Large Platelets April 21, 2013 9:00am Few - Lipase October 25, 2013 1:45pm 19 U/L L 23-300 COMMENT add to blood already in lab. Lymphocytes # (Auto) November 02, 2013 4:37am 0.9 T/MM3 L 1-4.8 Lymphocytes # (Manual) November 01, 2013 5:12am 0.6 T/MM3 L 1-4.8 Lymphocytes % (Manual) November 01, 2013 5:12am 7.0 % L 23-45 Lymphocytes (%) (Auto) November 02, 2013 4:37am 9.6 % L 23-45 Magnesium Level November 02, 2013 4:37am 1.4 MG/DL L 1.6-2.3 Mean Corpuscular Hemoglobin November 02, 2013 4:37am 28.9 UUG N 26-34 Mean Corpuscular Hemoglobin Concent November 02, 2013 4:37am 29.9 GM/DL L 31-37 Mean Corpuscular Volume November 02, 2013 4:37am 96.8 UM3 N 80-100 Mean Platelet Volume November 02, 2013 4:37am 9.6 UM3 N 9.4-12.4 Monocytes # (Auto) November 02, 2013 4:37am 0.7 T/MM3 N 0-0.8 Monocytes # (Manual) November 01, 2013 5:12am 0.2 T/MM3 N 0-0.8 Monocytes % (Manual) November 01, 2013 5:12am 3.0 % N 0-9.0 Monocytes (%) (Auto) November 02, 2013 4:37am 6.6 % N 0-9.0 Neutrophils # (Auto) November 02, 2013 4:37am 7.7 T/MM3 N 1.8-7.7 Neutrophils # (Manual) November 01, 2013 5:12am 6.7 T/MM3 N 1.8-7.7 Neutrophils % (Manual) November 01, 2013 5:12am 83.0 % H 33-66 Neutrophils (%) (Auto) November 02, 2013 4:37am 77.9 % H 33-66 Nucleated Red Blood Cells [...] 4.1 MG/DL N 2.5-4.5 Platelet Count November 02, 2013 4:37am 515 T/MM3 H 130-400 Platelet Evaluation (Diff) May 31, 2013 8:30am Few - Poikilocytosis October 26, 2013 4:52am 1+ - Potassium Level November 02, 2013 4:37am 4.0 MEQ/L N 3.6-5 Procalcitonin October 25, 2013 1:45pm 0.11 NG/ML - PCT </=0.5 ng/ mL - sepsis not likely;PCT >0.5 and </=2 ng/mL - sepsis possible; PCT >2 ng/mL - sepsis likely; PCT >/=10 ng/mL - systemic inflammatory response - sepsis or septic shock highly indicated. Prothromb Time International Ratio October 27, 2013 4:30am 1.62 H 0.81 -1.09 THERAPUTIC RANGE=2.00-3.00 FOR ANTI-THROMBOSIS THERAPUTIC RANGE=2.50- 3.50 FOR IMPLANTED VALVE RDW Standard Deviation November 02, 2013 4:37am 51.5 FL H 36.9-50.2 Random Cortisol August 15, 2013 6:50pm 13.2 UG/DL - Before 10:00am: 4.46-22.7 ug/dL;After 5:00pm: 1.7-14.1 ug/dL Reactive Lymphocytes # October 30, 2013 4:44am 0.6 T/MM3 H 0-0 Reactive Lymphocytes % October 30, 2013 4:44am 5.0 % H 0-0 Red Blood Count November 02, 2013 4:37am 2.77 M/MM3 L 4.00-5.20 Reticulocyte Hgb Content (CHr) October 25, 2013 1:45pm 23.5 PG L 30.8- 36.6 Schistocytes May 31, 2013 8:30am 1+ - Sodium Level November 02, 2013 4:37am 144 MEQ/L N 134-144 Stone Constituent 1 October 31, 2013 8:30am See below - 90% Calcium phosphate (apatite) Stone Constituent 2 October 31, 2013 8:30am See below - 10% Calcium carbonateTest Performed by: [place] [address] Kitchen And Bath Designer: Sunny Rojas III, M.D. Stone Analysis performed at [facility], [address] [place] [address] Order Dispatcher Bob Cottrell MD Stone Source October 31, 2013 8:30am Kidney - Stone Analysis performed at [facility], , [place], [place] [address]Irpzffw Director Bob Cottrell, Corrected result; previously reported as KIDNEY on 10/31/13 at 11:56 by Bethany/KVNG --- 11/01/132128 --- STOS previously reported as: KIDNEY Stone Analysis performed at [facility], , [place] [address] Order Dispatcher Bob Cottrell, Stone Weight October 31, 2013 [...] IU/mL - Thyroglobulin Ab screen performed at [facility], [address] [place] [address] Order Dispatcher Marlena Cottrell MD Thyroid Stimulating Hormone (TSH) October 25, 2013 1:45pm < 0.02 MIU/L L 0.47-4.68 Thyroperoxidase Antibody August 15, 2013 11:10pm <3 IU/mL - Thyroperoxidase Ab (TPO) performed at [facility], [address] [place] [address] Order Dispatcher Marlena Cottrell MD Thyroxine (T4) August 15, 2013 6:50pm 10.9 ug/dL - Thyroxine (T4) performed at [facility], [address] [place] [address] Order Dispatcher Marlena Cottrell MD Total Bilirubin November 02, 2013 4:37am 0.30 MG/DL N 0.20-1.30 Total Creatine Kinase July 01, 2012 3:30pm < 20 U/L L 30-135 Total Iron Binding Capacity August 15, 2013 6:50pm 148 UG/DL L 261-497 COMMENT DO ON BLOOD DRAWN TODAYCOMMENT * & TSH RECEPTOR ANTIBODIES * Total Protein November 02, 2013 4:37am 4.7 G/DL L 6.3-8.2 Triglycerides Level August 29, 2013 6:30pm 143 MG/DL H 35-135 Triiodothyonine (T3) (JOSE MIGUEL) August 15, 2013 6:50pm 92 ng/dL - T3 Total performed at [facility], [address] [place], [place] [address]Medical Director Marlena Cottrell MD Troponin I October 25, 2013 1:45pm < 0.012 ng/ml 0-0.12 Turbidity November 02, 2013 4:37am < 20 0-20 Unconjugated Bilirubin July 22, 2012 12:50am 0.10 MG/DL N 0.00-1.10 Urine Amorphous Urates November 30, 2011 3:00pm Many - Has specimen been collected/obtained? Y Urine Bacteria October 30, 2013 1:51pm 1+ H - COMMENT please do urine microscopy.Has specimen been collected/obtained? Y Urine Bilirubin October 30, 2013 1:51pm Negative - COMMENT please do urine microscopy.Has specimen been collected/obtained? Y Urine Blood October 30, 2013 1:51pm 2+ H - COMMENT please do urine microscopy.Has specimen been collected/obtained? Y Urine Collection Type October 30, 2013 1:51pm Murray indwelling - COMMENT please do urine microscopy.Has specimen been collected/obtained? Y Urine Color October 30, 2013 1:51pm Yellow - COMMENT please do urine microscopy.Has specimen been collected/obtained? Y Urine Culture Indicated October 28, 2013 11:26pm Cult ordered & setup - Has specimen been collected/obtained? Y Urine Eosinophils October 30, 2013 1:51pm 0 % - Eosinophil Count, Urine performed at [facility], [address] [place] [address] Order Dispatcher Marlena Cottrell MD Urine Glucose (UA) October 30, 2013 1:51pm Trace H - COMMENT please do urine microscopy.Has specimen been collected/obtained? Y Urine Ketones October 30, 2013 1:51pm Negative - COMMENT please do urine microscopy.Has specimen been collected/obtained? Y Urine Leukocyte Esterase October 30, 2013 1:51pm 2+ H - COMMENT please do urine microscopy.Has specimen been collected/obtained? Y Urine Nitrite October 30, 2013 1:51pm Positive H - COMMENT please do urine microscopy.Has specimen been collected/obtained? Y Urine Osmolality October 30, 2013 1:51pm 366 mOsm/kg - Osmolality, Urine performed at [facility], [address] [place] [address] Order Dispatcher Marlena Cottrell MD Urine Protein October 30, 2013 1:51pm Trace H - COMMENT please do urine microscopy.Has specimen been collected/obtained? Y Urine RBC October 30, 2013 1:51pm 10-20 /HPF H - COMMENT please do urine microscopy.Has specimen been collected/obtained? Y Urine Random Creatinine October 30, 2013 1:51pm 19.7 MG/DL - Has specimen been collected/obtained? Y Urine Random Sodium October 30, 2013 1:51pm 166 MEQ/L H 30-90 Has specimen been collected/obtained? Y Urine Specific [place] October 30, 2013 1:51pm 1.015 - COMMENT please do urine microscopy.Has specimen been collected/obtained? Y Urine Squamous Epithelial Cells October 18, 2013 1:15pm 0-5 - Has specimen been collected/obtained? Y Urine Transitional Epithelial Cells August 29, 2013 6:30am 3-5 /HPF - Has specimen been collected/obtained? Y Urine Turbidity October 30, 2013 1:51pm Sl cloudy - COMMENT please do urine microscopy.Has specimen been collected/obtained? Y Urine Urobilinogen October 30, 2013 1:51pm 1.0 EU/DL - COMMENT please do urine microscopy.Has specimen been collected/obtained? Y Urine WBC October 30, 2013 1:51pm 50-200 /HPF H - COMMENT please do urine microscopy.Has specimen been collected/obtained? Y Urine WBC Clumps August 29, 2013 6:30am None seen - Has specimen been collected/obtained? Y Urine Yeast October 30, 2013 1:51pm 1+ H - COMMENT please do urine microscopy.Has specimen been collected/obtained? Y Urine pH October 30, 2013 1:51pm 7.0 - COMMENT please do urine microscopy.Has specimen been collected/obtained? Y VLDL Cholesterol August 16, 2013 4:35am 14.8 MG/DL N 0-28 Vancomycin Level Trough October 31, 2013 8:51am 11.71 UG/ML L 15-20 Venous Blood Lactate October 25, 2013 1:45pm 0.8 MMOL/L N 0.6-2.2 White Blood Count November 02, 2013 4:37am 9.8 T/MM3 N 4.5-11.0 Blood Culture Blood October 28, 2013 9:37pm NO GROWTH AFTER 4 DAYS Gram Stain Drainage-Surgical Wound December 08, 2011 9:00pm Gram Stain Rectum October 30, 2013 6:16pm Gram Stain Cervix October 22, 2011 9:25pm Ova and Parasites Stool October 25, 2013 3:00pm Gram Stain Bladder October 31, 2013 8:04am Urine Culture Urine, Murray Indwelling October 28, 2013 11:26pm Paola Albicans Gram Stain Catheter (Line) Site December 03, 2011 5:55pm Name: LUIS M ARAGON Unit #: [id number] : [id number] Sex: F Loc / Svc: MED DOS: Signed Report #: [id number] DIAGNOSTIC IMAGING REPORT TYPE OF EXAM: RF RETROGRADE PYELOGRAM BILAT. Dictated By: SASCHA BRENNER MD INDICATION: ITS.REASON: BILAT RETROGRADE / BILAT STENT EXCHANGE COMPARISON: CT 10/30/13 RF RETROGRADE PYELOGRAM BILAT.: 12 fluoroscopic images for bilateral ureteral stent exchange. Retrograde injection show evidence of moderate bilateral hydronephrosis. . Procedures Procedure Status Date Provider(s) CYSTOSCOPY AND TREATMENT completed 08/15/13 REYNA BENNETT MD CYSTOSCOPY & URETER CATHETER completed 08/15/13 REYNA BENNETT MD CYSTOSCOPY AND TREATMENT completed 08/15/13 REYNA BENNETT MD THER/PROPH/DIAG INJ IV PUSH completed 08/29/13 TX/PRO/DX INJ NEW DRUG ADDON completed 08/29/13 TX/PRO/DX INJ NEW DRUG ADDON completed 08/29/13 TX/PRO/DX INJ SAME DRUG [employer] PSYCHOLOGY SPECIALIST completed 08/29/13 HYDRATE IV INFUSION ADD-ON completed 08/29/13 RPR S/N/AX/GEN/TRNK 2.5CM/< completed 10/10/13 DUSTIN MILES MD Cystoscopic insertion of ureteral stent completed 10/31/13 REYNA BENNETT MD Encounters Encounter Location Date/Time Discharged Inpatient [facility] 10/25/13 12:11pm Registered Recurring [facility] 10/25/13 9:45am Departed Emergency Room [facility] 10/18/13 11:25am Departed Emergency Room [facility] 10/10/13 8:36pm Registered Clinic [facility] 09/13/13 9:03am Registered Clinic [facility] 09/04/13 12:22pm Discharged Inpatient [facility] 08/29/13 3:12pm Departed Emergency Room [facility] 08/29/13 5:36am Registered Clinic [facility] 08/24/13 7:07am Registered Clinic [facility] 08/21/13 12:49pm Registered Clinic [facility] 08/21/13 9:03am Discharged Inpatient [facility] 08/15/13 8:45pm Registered Clinic [facility] 08/14/13 12:51pm Registered Clinic [facility] 08/14/13 10:46am Registered Clinic [facility] 08/09/13 6:49am
--- OUTSIDE RECORDS SUMMARY | 2016-05-16 11:19 | XMS REPORT | Continuity of Care Document ---
Author Author [facility] Organization [facility] Address Unknown Phone Unavailable Care Team Providers Care [place] Hand Name Role Phone HAMILTON RECINOS DO Primary Care Physician [phone] Insurance Providers Payer Name Policy Number Subscriber Name Relationship [facility] Community Plan [id number] Luis M Aragon 19 Self Advance Directives Directive Response Recorded Date/Time Advanced Directives Type None 08/29/13 4:00pm Ordered Resuscitation Status Full Code 06/19/13 10:41am Resuscitation Documents on File No 12/04/13 4:36pm Problems Medical Problems Problem Onset Date Status [...] Tab PO DAILY 30 Days 11/02/13 Active Hydrocodone/Acetaminophen 1-2 Tab PO [...] TD Q3D 10 Qty 11/02/13 Active Gabapentin 1 Cap PO UNKNOWN 11/20/13 Active Lisinopril 40 Mg PO UNKNOWN 11/20/13 Active Social History Social History Problem Response Recorded Date/Time Smoking Status Current every day smoker 08/29/2013 4:02pm When did patient START smoking? AGE 18 12/04/2013 4:29pm When did patient STOP smoking? FEB 2012 12/04/2013 4:29pm Chewing Tobacco Status No 08/29/2013 1:04pm Hx Substance Use No 12/04/2013 4:29pm Hx Alcohol Use No 12/04/2013 4:29pm Has the pt used tobacco in the last 12 months No 12/04/2013 4:29pm Query Response Start Date Stop Date Smoking [...] (Fahrenheit) 98.1 deg F (96.8 - 99.1) Temperature (Calculated Celsius) 36.59092 degrees C (36.0 - 37.3) Temperature Source Temporal Pulse Rate (adult) 70 bpm (60 - 100) Respiratory Rate 16 breaths/min (10 - 20) O2 Sat by Pulse Oximetry 97 % (90 - 100) Oxygen Delivery Method Room Air Blood Pressure 120/70 mm Hg Blood Pressure Source Automatic Cuff Height 5 ft 3 in Weight 124 lb Body Mass Index 22.0 kg/m^2 Results Test Source Date Result Interp. Ref. Range Comments Absolute Reticulocyte Count October 25, 2013 1:45pm 0.0382 T/MM3 N 0.0300-0.0900 Activated Partial Thromboplast Time November 08, 2013 4:00pm 37.7 SEC H 24-36 Alanine Aminotransferase (ALT/SGPT) December 05, 2013 8:50am 19 U/L N 9- 52 Albumin December 05, 2013 8:50am 3.3 G/DL L 3.5-5.0 Albumin/Globulin Ratio December 05, 2013 8:50am 0.8 RATIO L 1.1-2.2 Alcohol, Quantitative August 29, 2013 6:30pm <10 MG/DL - Alkaline Phosphatase December 05, 2013 8:50am 162 U/L H 38-126 Ammonia August 15, 2013 6:50pm < 9 UMOL/L L 9-33 COMMENT DO ON BLOOD DRAWN TODAYCOMMENT * & TSH RECEPTOR ANTIBODIES * Amylase Level October 18, 2013 1:25pm < 30 U/L L 30-110 Anion Gap December 05, 2013 8:50am 10 MEQ/L N 5-15 Anisocytosis October 30, 2013 [...] 7.340 L 7.350-7.450 Aspartate Amino Transf (AST/SGOT) December 05, 2013 8:50am 11 U/L L 14- 36 BUN/Creatinine Ratio December 05, 2013 8:50am 14 RATIO N 6-26 Band Neutrophils # November 22, 2013 11:45am 0.1 T/MM3 - Band Neutrophils % November 22, 2013 11:45am 1.0 % N 0-6 Basophils # (Auto) December 05, 2013 8:50am 0.1 T/MM3 N 0-0.2 COMMENT SCU WILL CALL Basophils # (Manual) October 26, 2013 8:10pm 0.0 T/MM3 N 0-0.2 Basophils % (Manual) October 26, 2013 8:10pm 0.0 % N 0-2 Basophils (%) (Auto) December 05, 2013 8:50am 0.9 % N 0-2 COMMENT SCU WILL CALL Blood Smear Pathologist Review October 25, 2013 1:45pm Sent for review - Blood Urea Nitrogen December 05, 2013 8:50am 19.0 MG/DL H 7-17 C-Reactive Protein November 22, 2013 11:45am 34.2 MG/L H 0-9 CA 125 Antigen February 20, 2013 3:04pm 11.6 U/ML N 0-35 Calcium Level December 05, 2013 8:50am 9.0 MG/DL N 8.4-10.2 Calculated Osmolality December 05, 2013 8:50am 277 MOSM/KG N 261-280 Carbon Dioxide Level December 05, 2013 8:50am 24 MEQ/L N 22-30 Carcinoembryonic Antigen October 25, 2013 9:35am 2.26 UG/L DN 0-3.0 Chloride Level December 05, 2013 8:50am 109 MEQ/L H 98-107 Cholesterol Level August 16, 2013 4:35am 80 MG/DL L 132-199 Cholesterol/HDL Ratio August 16, 2013 4:35am 4.0 RATIO N 0-4.0 Coagulation Factor VII October 26, 2013 9:40am 64 % L - Factor VII performed at [facility], [address] [facility], [place] [address]Bgskjzi Director Marlena Cottrell MD Conjugated Bilirubin July [...] 3:30pm < 0.2 NG/ML 0-3.4 Creatinine December 05, 2013 8:50am 1.4 MG/DL H 0.7-1.2 D-Dimer October 27, 2013 4:30am 758 NG/ML H 0-224 <224 NG/ML= PRESUMPTIVE NEGATIVE FOR PE OR DVT>224 NG/ML=ADDITIONAL EVALUATION FOR PE OR DVT RECOMMENDED Eosinophils # (Auto) December 05, 2013 8:50am 0.3 T/MM3 N 0-0.5 COMMENT SCU WILL CALL Eosinophils # (Manual) November 22, 2013 11:45am 0.1 T/MM3 N 0-0.5 Eosinophils % (Manual) November 22, 2013 11:45am 2.0 % N 0-4 Eosinophils (%) (Auto) December 05, 2013 8:50am 3.8 % N 0-4 COMMENT SCU WILL CALL [...] & TSH RECEPTOR ANTIBODIES * Globulin December 05, 2013 8:50am 4.0 G/DL H 2.4-3.6 Glucose Level December 05, 2013 8:50am 101 MG/DL N 65-110 Haptoglobin October 25, 2013 1:45pm 329 mg/dL H - Haptoglobin performed at [facility], [address] [facility], [place] [id number] Director Marlena Cottrell MD Hematocrit December 05, 2013 8:50am 34.1 % L 36-46 COMMENT SCU WILL CALL Hemoglobin December 05, 2013 8:50am 10.5 GM/DL L 12-16 COMMENT SCU WILL CALL Hemoglobin A1c [...] 2013 4:35am 45.2 L 66-159 Lactate Dehydrogenase December 04, 2013 9:05am 269 U/L L 313-618 Large Platelets April 21, 2013 9:00am Few - Lipase October 25, 2013 1:45pm 19 U/L L 23-300 COMMENT add to blood already in lab. Lymphocytes # (Auto) December 05, 2013 8:50am 0.7 T/MM3 L 1-4.8 COMMENT SCU WILL CALL Lymphocytes # (Manual) November 22, 2013 11:45am 0.8 T/MM3 L 1-4.8 Lymphocytes % (Manual) November 22, 2013 11:45am 12.0 % L 23-45 Lymphocytes (%) (Auto) December 05, 2013 8:50am 9.1 % L 23-45 COMMENT SCU WILL CALL Magnesium Level December 04, 2013 9:05am 1.4 MG/DL L 1.6-2.3 Mean Corpuscular Hemoglobin December 05, 2013 8:50am 29.2 UUG N 26-34 COMMENT SCU WILL CALL Mean Corpuscular Hemoglobin Concent December 05, 2013 8:50am 30.8 GM/DL L 31-37 COMMENT SCU WILL CALL Mean Corpuscular Volume December 05, 2013 8:50am 95.0 UM3 N 80-100 COMMENT SCU WILL CALL Mean Platelet Volume December 05, 2013 8:50am 9.8 UM3 N 9.4-12.4 COMMENT SCU WILL CALL Monocytes # (Auto) December 05, 2013 8:50am 0.7 T/MM3 N 0-0.8 COMMENT SCU WILL CALL Monocytes # (Manual) November 22, 2013 11:45am 0.1 T/MM3 N 0-0.8 Monocytes % (Manual) November 22, 2013 11:45am 2.0 % N 0-9.0 Monocytes (%) (Auto) December 05, 2013 8:50am 8.7 % N 0-9.0 COMMENT SCU WILL CALL Neutrophils # (Auto) December 05, 2013 8:50am 5.9 T/MM3 N 1.8-7.7 COMMENT SCU WILL CALL Neutrophils # (Manual) November 22, 2013 11:45am 5.6 T/MM3 N 1.8-7.7 Neutrophils % (Manual) November 22, 2013 11:45am 83.0 % H 33-66 Neutrophils (%) (Auto) December 05, 2013 8:50am 77.4 % H 33-66 COMMENT SCU WILL CALL [...] 4.1 MG/DL N 2.5-4.5 Platelet Count December 05, 2013 8:50am 382 T/MM3 N 130-400 COMMENT SCU WILL CALL Poikilocytosis October 26, 2013 4:52am 1+ - Potassium Level December 05, 2013 8:50am 4.7 MEQ/L N 3.6-5 Prothromb Time International Ratio November 08, 2013 4:00pm 1.03 N 0.81 -1.09 THERAPUTIC RANGE=2.00-3.00 FOR ANTI-THROMBOSIS THERAPUTIC RANGE=2.50- 3.50 FOR IMPLANTED VALVE RDW Standard Deviation December 05, 2013 8:50am 51.4 FL H 36.9-50.2 COMMENT SCU WILL CALL Random Cortisol August 15, 2013 6:50pm 13.2 UG/DL - Before 10:00am: 4.46-22.7 ug/dL;After 5:00pm: 1.7-14.1 ug/dL Red Blood Count December 05, 2013 8:50am 3.59 M/MM3 L 4.00-5.20 COMMENT SCU WILL CALL Reticulocyte Hgb Content (CHr) October 25, 2013 1:45pm 23.5 PG L 30.8- 36.6 Schistocytes May 31, 2013 8:30am 1+ - Sodium Level December 05, 2013 8:50am 143 MEQ/L N 134-144 Stone Source October 31, 2013 8:30am Kidney - Stone Analysis performed at [facility], , [place] [id number] Director Bob Cottrell, Corrected result; previously reported as KIDNEY on 10/31/13 at 11:56 by V/KVNG --- 11/01/132128 --- STOS previously reported as: KIDNEY Stone Analysis performed at [facility], , [place] [address] Front Desk Coordinator Bob Cottrell, Stone Weight October 31, 2013 [...] 10.9 ug/dL - Thyroxine (T4) performed at [facility] Reference Lab, [address] [place] [address] Front Desk Coordinator Marlena Cottrell MD Total Bilirubin December 05, 2013 8:50am 0.30 MG/DL N 0.20-1.30 Total Creatine Kinase July 01, 2012 3:30pm < 20 U/L L 30-135 Total Iron Binding Capacity August 15, 2013 6:50pm 148 UG/DL L 261-497 COMMENT DO ON BLOOD DRAWN TODAYCOMMENT * & TSH RECEPTOR ANTIBODIES * Total Protein December 05, 2013 8:50am 7.3 G/DL N 6.3-8.2 Triglycerides Level August 29, [...] % - Eosinophil Count, Urine performed at [facility] Reference Lab, [address] [place] [address] Front Desk Coordinator Marlena Cottrell MD Urine Glucose (UA) November 07, 2013 10:22am Negative - Urine Ketones November 07, 2013 10:22am Negative - Urine Leukocyte Esterase November 07, 2013 10:22am 2+ H - Urine Nitrite November 07, 2013 10:22am Negative - Urine Osmolality October 30, 2013 1:51pm 366 mOsm/kg - Osmolality, Urine performed at [facility], [address] [place] [address] Front Desk Coordinator Marlena Cottrell MD Urine Protein November 07, 2013 10:22am Negative - Urine RBC November 07, 2013 10:22am 1-3 /HPF - Urine Random Creatinine October 30, 2013 1:51pm 19.7 MG/DL - Has specimen been collected/obtained? Y Urine Random Sodium October 30, 2013 1:51pm 166 MEQ/L H 30-90 Has specimen been collected/obtained? Y Urine Specific Uneeda November 07, 2013 10:22am 1.010 L - [...] 11.71 UG/ML L 15-20 White Blood Count December 05, 2013 8:50am 7.7 T/MM3 N 4.5-11.0 COMMENT SCU WILL CALL Chemistry Specimen Hemolysis December 05, 2013 8:50am < 15 0-25 0-25: No Hemolysis.26-70: Slight [...] below - 10% Calcium carbonateTest Performed by: [place] [address] After School Counselor: Sunny Rojas III, M.D. Stone Analysis performed at [facility], [address] [place] [address] Front Desk Coordinator Bob Cottrell MD Glucometer June 20, 2013 6:29pm 108 mg/dL N 65-110 Lab Scanned Report December 04, 2013 7:15pm LAB TEST FORM REQUEST [id number] - Chlamydia trachomatis Amplified DNA October 22, 2011 9:38pm Ref lab rpt scanned - --- 10/26/11 0723 ---CHLAMDNA previously reported as: SENT OUT HDL Cholesterol Direct August 16, 2013 4:35am 20 MG/DL L 40-60 Platelet Evaluation (Diff) May 31, 2013 8:30am Few - Turbidity December 05, 2013 8:50am < 20 0-20 Reactive Lymphocytes % October 30, 2013 4:44am 5.0 % H 0-0 Glomerular Filtration Rate Calc December 05, 2013 8:50am 40 - Thyroperoxidase Antibody August 15, 2013 11:10pm <3 IU/mL - Thyroperoxidase Ab (TPO) performed at [facility] Reference Lab, [address] [place] [address] Front Desk Coordinator Marlena Cottrell MD Reactive Lymphocytes # October 30, 2013 4:44am 0.6 T/MM3 H 0-0 Thyroglobulin Antibody Screen August 15, 2013 6:50pm <3 IU/mL - Thyroglobulin Ab screen performed at [facility] Reference Lab, [facility] [place] [address] Front Desk Coordinator Marlena Cottrell MD Immature Granulocyte # (Auto) December 05, 2013 8:50am 0.01 T/MM3 N 0.00- 0.03 COMMENT SCU WILL CALL Immature Granulocyte % (Auto) December 05, 2013 8:50am 0.1 % N 0.0-0.5 COMMENT SCU WILL CALL Arterial Blood pO2 at Patient Temp August [...] or septic shock highly indicated. Icterus Index December 05, 2013 8:50am < 2 0-7 Arterial Blood Lactic Acid July 27, 2012 4:28pm 0.9 MMOL/L N 0.5-0.9 Triiodothyonine (T3) (JOSE MIGUEL) August 15, 2013 6:50pm 92 ng/dL - T3 Total performed at [facility], [address] [facility], [place] [address]Qdfkkos Director Marlena Cottrell MD C. difficile Toxin B Gene (PCR) October 28, 2013 11:25pm Positive H - Has specimen been collected/obtained? Y Blood Culture Blood November 22, 2013 12:15pm NO GROWTH AFTER 5 DAYS Gram Stain Drainage-Surgical Wound December 08, 2011 9:00pm Gram Stain Rectum November 22, 2013 12:25pm Gram Stain Cervix October 22, 2011 9:25pm LORAINE Preparation Other December 05, 2013 11:30am Ova and Parasites Stool October 25, 2013 3:00pm Gram Stain Bladder October 31, 2013 8:04am Urine Culture Urine, Straight Cath November 07, 2013 10:22am Gram Stain Catheter (Line) Site December 03, 2011 5:55pm Name: LUIS M ARAGON Unit #: [id number] : [id number] Sex: F Loc / Svc: [facility] DOS: 12/05/13 Signed Report #: [id number] DIAGNOSTIC IMAGING REPORT TYPE OF EXAM: RF [...] DO CYSTOSCOPY AND TREATMENT completed 10/25/13 REYNA BENNETT MD CYSTOSCOPY & URETER CATHETER completed 10/25/13 REYNA BENNETT MD CYSTOSCOPY AND TREATMENT completed 10/25/13 REYNA BENNETT MD Cystoscopic insertion of ureteral stent completed 12/05/13 REYNA BENNETT MD Encounters Encounter Location Date/Time Registered [facility] 12/04/13 11:20am Registered [facility] 12/04/13 9:16am Registered Clinic [facility] 12/01/13 9:33am Registered Clinic [facility] 11/28/13 1:25pm Registered [facility] 11/23/13 8:34am Registered [facility] 11/22/13 12:39pm Registered Clinic [facility] 11/22/13 12:24pm Registered [facility] 11/17/13 10:26am Registered [facility] 11/15/13 1:39pm Discharged Recurring [facility] 11/14/13 8:42am Registered [facility] 11/08/13 4:28pm Registered [facility] 11/08/13 9:01am Registered [facility] 11/07/13 10:27am Discharged Inpatient [facility] 10/25/13 12:11pm Departed Emergency Room [facility] 10/18/13 11:25am Departed Emergency Room [facility] 10/10/13 8:36pm Registered [facility] 09/13/13 9:03am
--- OUTSIDE RECORDS SUMMARY | 2016-05-16 11:20 | XMS REPORT | Continuity of Care Document ---
Author Author [facility] Organization [facility] Address Unknown Phone Unavailable Support Name Relationship Address Phone LUIS MANUEL HOUGH MD Caregiver [address] [place] [address] [place] [address] FELECIA GALLAGHER MD Caregiver [facility] [address] [place] [phone] REYES PEPE MD Caregiver [address] [place] [address] [place] [phone] MARKY[address]DAVE Next Of Kin [address] [place] [phone] CP Insurance Providers Payer Name Policy Number Subscriber Name Relationship [facility] Community Plan [id number] Yvette Aragon 19 Self Advance Directives Directive Response Recorded Date/Time Advanced Directives Type None 08/29/13 4:00pm Ordered Resuscitation Status Full Code 06/19/13 10:41am Chief Complaint and Reason for Visit Chief Complaint SMALL BOWEL OBSTRUCTIN,UTI Reason for Visit UTI Hyperthyroidism History of malignant neoplasm of colorectal region Urinary tract infection Small bowel obstruction Hypothyroidism Protein-calorie malnutrition, mild Anemia Hx of Clostridium difficile infection HTN (hypertension) Anxiety and depression GERD (gastroesophageal reflux disease) Hypomagnesemia Hypokalemia Abdominal pain Problems Medical Problems Problem Onset Date Status [...] Hypokalemia Unknown Active Abdominal pain Unknown Active Surgical [...] 2 Tab PO Q4H 04/14/14 Active Rivaroxaban 15 Mg PO TWICE DAILY WITH MEALS 21 Days 04/20/14 Active Social History Social History Problem Response Recorded Date/Time Chewing Tobacco Status No 08/29/2013 1:04pm Hx Substance Use No 04/14/2014 2:54pm Hx Alcohol Use No 04/14/2014 2:54pm Has the pt used tobacco in the [...] n/a Condition at time of discharge: Good Plan of Care Discharge Date 04/20/14 5:30pm Disposition 06 HOME HEALTH SERVICE Instructions/Education Provided [facility] D[facility] Discharge Instructions Colon Cancer DI for Abdominal Pain-Adult Prescriptions See Medications Section Functional Status Query Response Date Recorded Physical Hygiene Self April 20, 2014 3:41pm Disabilities None August 29, 2013 3:16pm Devices Used Glasses April 20, 2014 3:41pm Dressing Self April 20, 2014 3:41pm Ambulation Self August 29, 2013 1:04pm Diet Self April 20, 2014 3:41pm Mental Status Alert August 29, 2013 3:16pm Disabilities None August 29, 2013 3:16pm Devices Used Glasses April 20, 2014 3:41pm Physical Hygiene Self April 20, 2014 3:41pm Dressing Self April 20, 2014 3:41pm Ambulation Self August 29, 2013 1:04pm Diet Self April 20, 2014 3:41pm Allergies, Adverse Reactions, Alerts Allergen Type Severity Reaction Status Last Updated NKDA Allergy Unknown Active 04/14/14 Immunizations Name Given Type Hx Influenza Vaccination [...] F (96.8 - 99.1) Temperature (Calculated Celsius) 36.50159 degrees C (36.0 - 37.3) Pulse Rate (adult) 72 bpm (60 - 100) Respiratory Rate 14 breaths/min (10 - 20) Height 5 ft 3 in Weight 123 lb Body Mass Index 21.0 kg/m^2 Results Test Source Date Result Interp. Ref. Range Comments Absolute Reticulocyte Count October 25, 2013 1:45pm 0.0382 T/MM3 N 0.0300-0.0900 Activated Partial Thromboplast Time January 12, 2014 11:01am 40.9 SEC H 24-36 Alanine Aminotransferase (ALT/SGPT) April 20, 2014 4:45am 17 U/L N 9- 52 Albumin April 20, 2014 4:45am 2.3 G/DL L 3.5-5.0 Albumin/Globulin Ratio April 20, 2014 4:45am 0.7 RATIO L 1.1-2.2 Alcohol, Quantitative August 29, 2013 6:30pm <10 MG/DL - Alkaline Phosphatase April 20, 2014 4:45am 104 U/L N 38-126 Ammonia August 15, 2013 6:50pm < 9 UMOL/L L 9-33 COMMENT DO ON BLOOD DRAWN TODAYCOMMENT * & TSH RECEPTOR ANTIBODIES * Amylase Level April 14, 2014 10:45am < 30 U/L L 30-110 Anion Gap April 20, 2014 4:45am 7 MEQ/L N 5-15 Anisocytosis January 04, 2014 [...] N 80- 100 Aspartate Amino Transf (AST/SGOT) April 20, 2014 4:45am 13 U/L L 14- 36 BUN/Creatinine Ratio April 20, 2014 4:45am 6 RATIO N 6-26 Band Neutrophils # April 14, 2014 10:45am 0.4 T/MM3 - Band Neutrophils % April 14, 2014 10:45am 6.0 % N 0-6 Basophils # (Auto) April 20, 2014 4:45am 0.0 T/MM3 N 0-0.2 Basophils # (Manual) March 26, 2014 9:40am 0.1 T/MM3 N 0-0.2 Basophils % (Manual) March 26, 2014 9:40am 1.0 % N 0-2 Basophils (%) (Auto) April 20, 2014 4:45am 0.8 % N 0-2 Beta HCG, Quantitative December 08, 2011 8:40pm < 2.39 UIU/ML - NON- INDIVIDUALS=0 - 4.83;SAMPLES BETWEEN 4.83 - 25 SHOULD BE RE-TESTED AFTER 48 HOURS IF IS SUSPECTED; GESTATION 1-10 WEEKS: 45-256,380; 11-15 WEEKS: 11,556-265,380; 16-22 WEEKS: 27,023-111,954; 23-40 WEEKS: 24,031-101,566 Blood Smear Pathologist Review October 25, 2013 1:45pm Sent for review - Blood Urea Nitrogen April 20, 2014 4:45am 6.0 MG/DL DL 7-17 C-Reactive Protein December 08, 2013 12:01pm 34.4 MG/L H 0-9 C. difficile Toxin B Gene (PCR) October 28, 2013 11:25pm Positive H - Has specimen been collected/obtained? Y CA 125 Antigen February 20, 2013 3:04pm 11.6 U/ML N 0-35 Calcium Level April 20, 2014 4:45am 7.4 MG/DL L 8.4-10.2 Calculated Osmolality April 20, 2014 4:45am 270 MOSM/KG N 261-280 Carbon Dioxide Level April 20, 2014 4:45am 27 MEQ/L N 22-30 Carcinoembryonic Antigen March 29, 2014 10:05am 5.83 UG/L H 0-3.0 Chemistry Specimen Hemolysis April 20, 2014 4:45am < 15 0-25 0-25 : No Hemolysis.26-70: [...] previously reported as: SENT OUT Chloride Level April 20, 2014 4:45am 108 MEQ/L H 98-107 Cholesterol Level August 16, 2013 4:35am 80 MG/DL L 132-199 Cholesterol/HDL Ratio August 16, 2013 4:35am 4.0 RATIO N 0-4.0 Coagulation Factor VII October 26, 2013 9:40am 64 % L - Factor VII performed at [facility], [address] [place], [place] [address]Xenuxxh Director Marlena Cottrell MD Conjugated Bilirubin July [...] blood in lab from this AM. Creatinine April 20, 2014 4:45am 1.1 MG/DL DN 0.7-1.2 D-Dimer October 27, 2013 4:30am 758 NG/ML H 0-224 <224 NG/ML= PRESUMPTIVE NEGATIVE FOR PE OR DVT>224 NG/ML=ADDITIONAL EVALUATION FOR PE OR DVT RECOMMENDED Eosinophils # (Auto) April 20, 2014 4:45am 0.1 T/MM3 N 0-0.5 Eosinophils # (Manual) April 06, 2014 10:40am 0.1 T/MM3 N 0-0.5 Eosinophils % (Manual) April 06, 2014 10:40am 1.0 % N 0-4 Eosinophils (%) (Auto) April 20, 2014 4:45am 2.0 % N 0-4 Erythrocyte Sedimentation Rate [...] * & TSH RECEPTOR ANTIBODIES * Globulin April 20, 2014 4:45am 3.1 G/DL N 2.4-3.6 Glomerular Filtration Rate Calc April 20, 2014 4:45am 53 - Glucometer June 20, 2013 6:29pm 108 mg/dL N 65-110 Glucose Level April 20, 2014 4:45am 88 MG/DL N 65-110 HDL Cholesterol Direct August 16, 2013 4:35am 20 MG/DL L 40-60 Haptoglobin October 25, 2013 1:45pm 329 mg/dL H - Haptoglobin performed at [facility], [address] [place], [place] [address]Syhdukn Director Marlena Cottrell MD Hematocrit April 20, 2014 4:45am 30.4 % L 36-46 Hemoglobin April 20, 2014 4:45am 9.8 GM/DL L 12-16 Hemoglobin A1c June 22, 2013 4:48am 4.9 % L 6-7 <6.0 NON-DIABETIC RANGE6.0-7.0 ADA THERAPEUTIC RANGE >7.0 ACTION SUGGESTED Hypochromasia October 26, 2013 4:52am 1+ - Icterus Index April 20, 2014 4:45am < 2 0-7 Immature Granulocyte # (Auto) April 20, 2014 4:45am 0.01 T/MM3 N 0.00 -0.03 Immature Granulocyte % (Auto) April 20, 2014 4:45am 0.2 % N 0.0-0.5 Immature Reticulocyte Fraction [...] 4:35am 45.2 L 66-159 Lab Scanned Report April 06, 2014 6:54pm LAB TEST FORM REQUEST [id number] - Lactate Dehydrogenase April 06, 2014 10:40am 571 U/L N 313-618 Large Platelets April 21, 2013 9:00am Few - Lipase April 14, 2014 10:45am 23 U/L N 23-300 Lymphocytes # (Auto) April 20, 2014 4:45am 0.7 T/MM3 L 1-4.8 Lymphocytes # (Manual) April 14, 2014 10:45am 0.6 T/MM3 L 1-4.8 Lymphocytes % (Manual) April 14, 2014 10:45am 9.0 % L 23-45 Lymphocytes (%) (Auto) April 20, 2014 4:45am 13.1 % L 23-45 Magnesium Level April 19, 2014 5:11am 1.5 MG/DL L 1.6-2.3 Mean Corpuscular Hemoglobin April 20, 2014 4:45am 31.6 UUG N 26-34 Mean Corpuscular Hemoglobin Concent April 20, 2014 4:45am 32.2 GM/DL N 31-37 Mean Corpuscular Volume April 20, 2014 4:45am 98.1 UM3 N 80-100 Mean Platelet Volume April 20, 2014 4:45am 9.3 UM3 L 9.4-12.4 Monocytes # (Auto) April 20, 2014 4:45am 0.5 T/MM3 N 0-0.8 Monocytes # (Manual) April 14, 2014 10:45am 0.4 T/MM3 N 0-0.8 Monocytes % (Manual) April 14, 2014 10:45am 5.0 % N 0-9.0 Monocytes (%) (Auto) April 20, 2014 4:45am 9.4 % H 0-9.0 OI-Tfy-U-Type Natriuretic Peptide January 13, 2014 4:22am 160 PG/ML N 0 -175 Rule in cut points: <50 years old=450; 50-75 years old=900; >75 years old=1800; When utilizing ProBNP rule-in cut points, adjustment for impaired renal function is typically not required. Neutrophils # (Auto) April 20, 2014 4:45am 3.8 T/MM3 N 1.8-7.7 Neutrophils # (Manual) April 14, 2014 10:45am 5.6 T/MM3 N 1.8-7.7 Neutrophils % (Manual) April 14, 2014 10:45am 80.0 % H 33-66 Neutrophils (%) (Auto) April 20, 2014 4:45am 74.5 % H 33-66 Nucleated Red Blood Cells [...] 4:14am 2.9 MG/DL N 2.5-4.5 Platelet Count April 20, 2014 4:45am 370 T/MM3 N 130-400 Platelet Evaluation (Diff) May 31, 2013 8:30am Few - Poikilocytosis October 26, 2013 4:52am 1+ - Potassium Level April 20, 2014 4:45am 3.3 MEQ/L L 3.6-5 Prealbumin April 14, 2014 10:45am 12.2 [...] 3.50 FOR IMPLANTED VALVE RDW Standard Deviation April 20, 2014 4:45am 53.2 FL H 36.9-50.2 Random Cortisol August 15, 2013 6:50pm 13.2 UG/DL - Before 10:00am: 4.46-22.7 ug/dL;After 5:00pm: 1.7-14.1 ug/dL Reactive Lymphocytes # February 23, 2014 10:30am 0.1 T/MM3 H 0-0 Reactive Lymphocytes % February 23, 2014 10:30am 1.0 % H 0-0 Red Blood Count April 20, 2014 4:45am 3.10 M/MM3 L 4.00-5.20 Reticulocyte Hgb Content (CHr) October 25, 2013 1:45pm 23.5 PG L 30.8- 36.6 Schistocytes May 31, 2013 8:30am 1+ - Sodium Level April 20, 2014 4:45am 142 MEQ/L N 134-144 Stone Constituent 1 December 19, 2013 10:28am See below - 90% Calcium phosphate (apatite) Stone Constituent 2 December 19, 2013 10:28am See below - 10% Calcium carbonateTest Performed by: [place] [address] Street Railway Line Installer: Lonny Franz M.D. Stone Analysis performed at [facility], [address] [place] [address] Gas Worker Bob Cottrell MD Stone Source December 19, [...] IU/mL - Thyroglobulin Ab screen performed at [facility], [address] [place] [address] Gas Worker Marlena Cottrell MD Thyroid Stimulating Hormone (TSH) April 19, 2014 5:11am 127.00 MIU/L H 0.47-4.68 COMMENT Add on - blood already in lab Thyroperoxidase Antibody August 15, 2013 11:10pm <3 IU/mL - Thyroperoxidase Ab (TPO) performed at [facility], [address] [place] [address] Gas Worker Marlena Cottrell MD Thyroxine (T4) August 15, 2013 6:50pm 10.9 ug/dL - Thyroxine (T4) performed at [facility], [address] [place] [address] Gas Worker Marlena Cottrell MD Total Bilirubin April 20, 2014 4:45am 0.30 MG/DL N 0.20-1.30 Total Creatine Kinase January 12, 2014 11:02am < 20 U/L L 30-135 COMMENT add to blood in lab from this AM. Total Iron Binding Capacity August 15, 2013 6:50pm 148 UG/DL L 261-497 COMMENT DO ON BLOOD DRAWN TODAYCOMMENT * & TSH RECEPTOR ANTIBODIES * Total Protein April 20, 2014 4:45am 5.4 G/DL L 6.3-8.2 Triglycerides Level August 29, 2013 6:30pm 143 MG/DL H 35-135 Triiodothyonine (T3) (JOSE MIGUEL) August 15, 2013 6:50pm 92 ng/dL - T3 Total performed at [facility], [address] [place], [place] [address]Medical Director Marlena Cottrell MD Troponin I January 12, 2014 11:01am 0.012 ng/ml N 0-0.12 COMMENT add to blood already drawn in lab.COMMENT add to blood in lab from this AM. Turbidity April 20, 2014 4:45am < 20 0-20 Unconjugated Bilirubin July 22, 2012 12:50am 0.10 MG/DL N 0.00-1.10 Urine Amorphous Urates November 30, 2011 3:00pm Many - Has specimen been collected/obtained? Y Urine Bacteria April 14, 2014 1:30pm 1+ H - Has specimen been collected/obtained? Y Urine Bilirubin April 14, 2014 1:30pm Negative - Has specimen been collected/obtained? Y Urine Blood April 14, 2014 1:30pm 2+ H - Has specimen been collected /obtained? Y Urine Collection Type April 14, 2014 1:30pm Straight cath - Has specimen been collected/obtained? Y Urine Color April 14, 2014 1:30pm Yellow - Has specimen been collected/obtained? Y Urine Culture Indicated April 14, 2014 1:30pm Cult reflexed &setup - Has specimen been collected/obtained? Y Urine Eosinophils October 30, 2013 1:51pm 0 % - Eosinophil Count, Urine performed at [facility], [address] [place] [address] Gas Worker Marlena Cottrell MD Urine Glucose (UA) April 14, 2014 1:30pm Negative - Has specimen been collected/obtained? Y Urine Ketones April 14, 2014 1:30pm Negative - Has specimen been collected/obtained? Y Urine Leukocyte Esterase April 14, 2014 1:30pm 2+ H - Has specimen been collected/obtained? Y Urine Mucus April 14, 2014 1:30pm Present - Has specimen been collected/obtained? Y Urine Nitrite April 14, 2014 1:30pm Negative - Has specimen been collected/obtained? Y Urine Osmolality October 30, 2013 1:51pm 366 mOsm/kg - Osmolality, Urine performed at [facility], [address], [place] Gas Worker Marlena Cottrell MD Urine Protein April 14, 2014 1:30pm Trace H - Has specimen been collected/obtained? Y Urine RBC April 14, 2014 1:30pm Tntc /HPF H - Has specimen been collected/obtained? Y Urine Random Creatinine October 30, 2013 1:51pm 19.7 MG/DL - Has specimen been collected/obtained? Y Urine Random Sodium October 30, 2013 1:51pm 166 MEQ/L H 30-90 Has specimen been collected/obtained? Y Urine Specific [place] April 14, 2014 1:30pm 1.010 L - Has specimen been collected/obtained? Y Urine Squamous Epithelial Cells January 12, 2014 7:30am 0-5 - Has specimen been collected/obtained? Y Urine Transitional Epithelial Cells August 29, 2013 6:30am 3-5 /HPF - Has specimen been collected/obtained? Y Urine Turbidity April 14, 2014 1:30pm Sl cloudy - Has specimen been collected/obtained? Y Urine Urobilinogen April 14, 2014 1:30pm 0.2 EU/DL - Has specimen been collected/obtained? Y Urine WBC April 14, 2014 1:30pm 50-200 /HPF H - Has specimen been collected/obtained? Y Urine WBC Clumps August 29, 2013 6:30am None seen - Has specimen been collected/obtained? Y Urine Yeast January 12, 2014 7:30am 1+ H - Has specimen been collected /obtained? Y Urine pH April 14, 2014 1:30pm 8.5 H - Has specimen been collected/ obtained? [...] use blood in lab White Blood Count April 20, 2014 4:45am 5.1 T/MM3 N 4.5-11.0 Blood Culture Catheter/Port [...] 2011 5:55pm Name: YVETTE ARAGON Unit #: [id number] : 1965 Sex: F Loc / Sv: SRG DOS: 04/14/14 Signed Report #: [id number] DIAGNOSTIC IMAGING REPORT TYPE OF EXAM: SMALL BOWEL SERIES Dictated By: NORM PALMER MD Indication: ITS.REASON: Small bowel obstruction SMALL BOWEL SERIES: Comparison: Small bowel series dated February 27, 2014 Findings: In[employer] radiograph of the abdomen was obtained demonstrating [...] PRESS WOUND TX </=50 CM completed 01/23/14 [id number]"ADHESIVE BORDER, EACH DRESSING" completed 01/23/14 NEG PRESS WOUND TX </=50 CM completed 01/30/14 [id number]"ADHESIVE BORDER, EACH DRESSING" completed 01/30/14 X-RAY EXAM OF ABDOMEN completed 01/29/14 NEG PRESS WOUND TX </=50 CM completed 02/06/14 [id number]"ADHESIVE BORDER, EACH DRESSING" completed 02/06/14 X-RAY EXAM OF ABDOMEN completed 02/05/14 RMVL DEVITAL TIS 20 CM/< completed 02/13/14 NEG PRESS WOUND TX </=50 CM completed 02/13/14 [id number]"ADHESIVE BORDER, EACH DRESSING" completed 02/13/14 X-RAY UPPER GI&SMALL INTEST completed 02/08/14 NEG PRESS WOUND TX </=50 CM completed 02/20/14 [id number]"ADHESIVE BORDER, EACH DRESSING" completed 02/20/14 NEG PRESS WOUND TX </=50 CM completed 02/23/14 [id number]"ADHESIVE BORDER, EACH DRESSING" completed 02/23/14 CT ABD & PELVIS W/O CONTRAST completed 02/27/14 X-RAY EXAM OF SMALL BOWEL completed 02/27/14 E&M LEVEL - FACILITY completed 03/06/14 CT THORAX W/DYE completed 03/08/14 CT ABD & PELV W/CONTRAST completed 03/08/14 [id number]"INFUSION, NORMAL SALINE SOLUTION , 250 CC" completed 03/08/14 [id number]"LOW OSMOLAR CONTRAST MATERIAL, 300-399 MG/ML IODINE C completed E&M LEVEL - FACILITY completed 03/21/14 PET IMAGE W/CT FULL BODY completed 03/14/14 [id number]"FLUORODEOXYGLUCOSE F-18 FDG, DIAGNOSTIC, PER STUDY DO completed RMVL DEVITAL TIS 20 CM/< completed 03/27/14 E&M LEVEL - FACILITY completed 04/03/14 US EXAM ABDO BACK WALL COMP completed 04/05/14 EXTREMITY STUDY completed 04/05/14 X-RAY EXAM OF ABDOMEN completed 04/06/14 Encounters Encounter Location Date/Time Discharged Inpatient [facility] 04/14/14 3:53pm Registered Clinic [facility] 04/06/14 12:16pm Registered [facility] 04/06/14 10:44am Registered [facility] 04/05/14 2:38pm Registered Clinic [facility] 04/05/14 11:53am Registered Clinic [facility] 04/03/14 1:49pm Registered Clinic [facility] 03/27/14 1:36pm Registered Clinic [facility] 03/21/14 1:39pm Registered Clinic [facility] 03/14/14 8:05am Registered Clinic [facility] 03/08/14 11:36am Registered Clinic [facility] 03/06/14 1:39pm Registered Clinic [facility] 02/27/14 8:22am Registered Clinic [facility] 02/23/14 9:06am Registered Clinic [facility] 02/20/14 1:59pm Registered Clinic [facility] 02/13/14 1:57pm Registered Clinic [facility] 02/08/14 12:26pm Registered Clinic [facility] 02/07/14 9:58am Registered Clinic [facility] 02/06/14 1:33pm Registered Clinic [facility] 02/05/14 10:21am Registered Clinic [facility] 01/30/14 1:30pm Registered Clinic [facility] 01/29/14 11:20am Registered Clinic [facility] 01/23/14 1:57pm Discharged [facility] 03/10/13 8:27am Recent Diagnosis UTI Hyperthyroidism History of malignant neoplasm of colorectal region Urinary tract infection Small bowel obstruction Hypothyroidism Protein-calorie malnutrition, mild Anemia Hx of Clostridium difficile infection HTN (hypertension) Anxiety and depression GERD (gastroesophageal reflux disease) Hypomagnesemia Hypokalemia Abdominal pain
[2016-05-16] MEDS ORDERED: SERT100T12 PO (11:32)
[2016-05-16] MEDS ORDERED: CLON0.5T4 PO (11:33)
[2016-05-16] MEDS ORDERED: MORPHINE SULFATE 4 MG SYRINGE IV ONE ×2 (11:45→14:00)
[2016-05-16] MEDS ORDERED: NORMAL SALINE 1,000 ML IV ONE (11:45)
[2016-05-16] MEDS ORDERED: ONDANSETRON 4mg/2ml INJECTION IV ONE ×2 (11:45→14:00)
--- OUTSIDE RECORDS SUMMARY | 2016-05-16 11:50 | XMS REPORT | Continuity of Care Document ---
Author Author [facility] Organization [facility] Address Unknown Phone Unavailable Care Team Providers Care Sales And Marketing Intern Name Role Phone HAMILTON GUZMÁN DO Primary Care Physician [phone] Insurance Providers Payer Name Policy Number Subscriber Name Relationship [facility] Community Plan [id number] Luis M Aragon 19 Self Advance Directives [...] at 9:30. Make appointment with Lab at [facility] for CBC with diff, CMP and Mg [...] F (96.8 - 99.1) Temperature (Calculated Celsius) 36.22849 degrees C (36.0 - 37.3) Temperature Source [...] % L - Factor VII performed at [facility], [address], [place] [address]Jlymmke Director Marlena Cottrell MD Conjugated Bilirubin July [...] 329 mg/dL H - Haptoglobin performed at [facility], [address], [place], [place] [address]Kdifpyb Director Marlena Cottrell MD Hematocrit December 29, [...] 25, 2013 2:12pm LAB TEST FORM REQUEST [id number] - Lactate Dehydrogenase December 25, 2013 9:30am [...] below - 10% Calcium carbonateTest Performed by: [address] [address] Die Polisher: Lonny Franz M.D. Stone Analysis performed at [facility], [address] [place] [address] Motorman/Woman Bob Cottrell MD Stone Source December 19, [...] IU/mL - Thyroglobulin Ab screen performed at [facility], [address] [place] [address] Motorman/Woman Marlena Cottrell MD Thyroid Stimulating Hormone (TSH) December 26, 2013 5:57am 2.05 MIU/L DN 0.47-4.68 Thyroperoxidase Antibody August 15, 2013 11:10pm <3 IU/mL - Thyroperoxidase Ab (TPO) performed at [facility], [address] [place] [address] Motorman/Woman Marlena Cottrell MD Thyroxine (T4) August 15, 2013 6:50pm 10.9 ug/dL - Thyroxine (T4) performed at [facility], [address] [place] [address] Motorman/Woman Marlena Cottrell MD Total Bilirubin December 29, [...] 92 ng/dL - T3 Total performed at [facility], [address] [place], [place] [address]Medical Director Marlena Cottrell MD Troponin I October [...] % - Eosinophil Count, Urine performed at [facility], [facility] [place] [address] Motorman/Woman Marlena Cottrell MD Urine Glucose (UA) December [...] 366 mOsm/kg - Osmolality, Urine performed at [facility], [address] [place] [address] Motorman/Woman Marlena Cottrell MD Urine Protein December 25, 2013 6:25pm Negative - Has specimen been collected/obtained? Y Urine RBC December 25, 2013 6:25pm 1-3 /HPF - Has specimen been collected/obtained? Y Urine Random Creatinine October 30, 2013 1:51pm 19.7 MG/DL - Has specimen been collected/obtained? Y Urine Random Sodium October 30, 2013 1:51pm 166 MEQ/L H 30-90 Has specimen been collected/obtained? Y Urine Specific [place] December 25, 2013 6:25pm 1.015 - Has [...] 5:55pm Name: LUIS M ARAGON Unit #: [id number] : 1965 Sex: F Loc / Svc: MED DOS: 12/25/13 Signed Report #: [id number] DIAGNOSTIC IMAGING REPORT TYPE OF EXAM: CHEST [...] MD Encounters Encounter Location Date/Time Discharged Inpatient [facility] 12/25/13 9:56pm Registered [facility] 12/25/13 9:39am Registered [facility] 12/12/13 1:27pm Registered [facility] 12/08/13 12:20pm Registered [facility] 12/08/13 11:48am Registered [facility] 12/06/13 10:08am Registered [facility] 12/04/13 11:20am Registered [facility] 12/01/13 9:33am Registered [facility] 11/28/13 1:25pm Registered [facility] 11/23/13 8:34am Registered [facility] 11/22/13 12:39pm Registered [facility] 11/22/13 12:24pm Registered Clinic [facility] 11/17/13 10:26am Registered Clinic [facility] 11/15/13 1:39pm Discharged Recurring [facility] 11/14/13 8:42am Registered Clinic [facility] 11/08/13 4:28pm Registered Clinic [facility] 11/08/13 9:01am Registered Clinic [facility] 11/07/13 10:27am Discharged Inpatient [facility] 10/25/13 12:11pm Departed Emergency Room [facility] 10/18/13 11:25am Departed Emergency Room [facility] 10/10/13 8:36pm Recent Diagnosis History of malignant neoplasm of colorectal region Small bowel obstruction History of malignant neoplasm of colorectal region Colon cancer Small bowel obstruction
--- OUTSIDE RECORDS SUMMARY | 2016-05-16 11:50 | XMS REPORT | Continuity of Care Document ---
Author Author [facility] Organization [facility] Address Unknown Phone Unavailable Care Team Providers Care Wastewater Treatment Supervisor Name Role Phone HAMILTON RECINOS DO Primary Care Physician [phone] Insurance Providers Payer Name Policy Number Subscriber Name Relationship [facility] Community Plan [id number] Luis M Berman 19 Self Advance Directives [...] with diff, CMP, Mg, Phos done [place] [facility] [place] appointment that day. Follow up with [...] F (96.8 - 99.1) Temperature (Calculated Celsius) 36.00127 degrees C (36.0 - 37.3) Temperature Source [...] % L - Factor VII performed at [facility], [address], [place], [place] [address]Cqbdqro Director Marlena Cottrell MD Conjugated Bilirubin July [...] 329 mg/dL H - Haptoglobin performed at [facility], [address] [place], [place] [address]Fetmlwl Director Marlena Cottrell MD Hematocrit January 15, [...] Thyroxine (T4) performed at [facility], [address] [place] [address] Painter Spring Marlena Cottrell MD Total Bilirubin January 15, [...] % - Eosinophil Count, Urine performed at [facility], [address] [place] [address] Painter [place] Marlena Cottrell MD Urine Glucose (UA) January [...] 366 mOsm/kg - Osmolality, Urine performed at [facility], [address], [id number] Pain[place] Marlena Cottrell MD Urine Protein January 12, [...] Has specimen been collected/obtained? Y Urine Specific [place] January 12, 2014 7:30am 1.015 - Has [...] below - 10% Calcium carbonateTest Performed by: [place] [address] Jawbone Breaker: Lonny Franz M.D. Stone Analysis performed at [facility], [address] [place] [address] Painter [place] Bob Cottrell MD Glucometer June 20, 2013 6:29pm 108 mg/dL N 65-110 Lab Scanned Report January 11, 2014 11:34am LAB TEST FORM REQUEST [id number] - Chlamydia trachomatis Amplified DNA October 22, [...] IU/mL - Thyroperoxidase Ab (TPO) performed at [facility], [address] [place] [address] Painter [place] Marlena Cottrell MD Reactive Lymphocytes # October 30, 2013 4:44am 0.6 T/MM3 H 0-0 Thyroglobulin Antibody Screen August 15, 2013 6:50pm <3 IU/mL - Thyroglobulin Ab screen performed at [facility], [address] [place] [address] Pain[place] Marlena Cottrell MD Immature Granulocyte # (Auto) [...] 27, 2012 4:28pm 0.9 MMOL/L N 0.5-0.9 VZ-Lqg-X-Type Natriuretic Peptide January 13, 2014 4:22am 160 PG/ML N 0 -175 Rule in cut points: <50 years old=450; 50-75 years old=900; >75 years old=1800; When utilizing ProBNP rule-in cut points, adjustment for impaired renal function is typically not required. Triiodothyonine (T3) (JOSE MIGUEL) August 15, 2013 6:50pm 92 ng/dL - T3 Total performed at [facility], [address] [facility], [place] [address]Yvqbxzs Director Marlena Cottrell MD C. difficile Toxin [...] 5:55pm Name: LUIS M BERMAN Unit #: [id number] : 1965 Sex: F Loc / Svc: MED DOS: 01/12/14 Signed Report #: [id number] DIAGNOSTIC IMAGING REPORT TYPE OF EXAM: CHEST, [...] PRESS WOUND TX </=50 CM completed 01/02/14 [id number]"ADHESIVE BORDER, EACH DRESSING" completed 01/02/14 X-RAY EXAM OF ABDOMEN completed 01/04/14 Encounters Encounter Location Date/Time Discharged Inpatient [facility] 01/12/14 9:38am Registered [facility] 01/11/14 11:22am Registered Clinic [facility] 01/09/14 1:58pm Registered Clinic [facility] 01/08/14 11:07am Registered Clinic [facility] 01/04/14 3:11pm Registered Clinic [facility] 01/02/14 1:23pm Discharged Inpatient [facility] 12/25/13 9:56pm Registered Clinic [facility] 12/12/13 1:27pm Registered Clinic [facility] 12/08/13 12:20pm Registered Clinic [facility] 12/08/13 11:48am Registered Clinic [facility] 12/06/13 10:08am Registered Clinic [facility] 12/04/13 11:20am Registered Clinic [facility] 12/01/13 9:33am Registered Clinic [facility] 11/28/13 1:25pm Registered Clinic [facility] 11/23/13 8:34am Registered Clinic [facility] 11/22/13 12:39pm Registered Clinic [facility] 11/22/13 12:24pm Registered Clinic [facility] 11/17/13 10:26am Registered Clinic [facility] 11/15/13 1:39pm Discharged Recurring [facility] 11/14/13 8:42am Registered Clinic [facility] 11/08/13 4:28pm Registered Clinic [facility] 11/08/13 9:01am Registered Clinic [facility] 11/07/13 10:27am Discharged Inpatient [facility] 10/25/13 12:11pm Departed Emergency Room [facility] 10/18/13 11:25am Recent Diagnosis History of malignant neoplasm of colorectal region Small bowel obstruction
--- OUTSIDE RECORDS SUMMARY | 2016-05-16 11:50 | XMS REPORT | Continuity of Care Document ---
Author Author [facility] Organization [facility] Address Unknown Phone Unavailable Care Team Providers Care Tester/Lift Trucker Name Role Phone HAMILTON RECINOS DO Primary Care Physician [phone] Insurance Providers Payer Name Policy Number Subscriber Name Relationship [facility] Community Plan [id number] Luis M Berman 19 Self Advance Directives [...] F (96.8 - 99.1) Temperature (Calculated Celsius) 36.28668 degrees C (36.0 - 37.3) Temperature Source [...] % L - Factor VII performed at [facility], [address] [place], [place] [address]Osnlvyi Director Marlena Cottrell MD Conjugated Bilirubin July [...] 329 mg/dL H - Haptoglobin performed at [facility], [address], [place] [address]Hagwgtm Director Marlena Cottrell MD Hematocrit December 19, [...] below - 10% Calcium carbonateTest Performed by: [address] [address] Kickboxing Instructor: Sunny Rojas III, M.D. Stone Analysis performed at [facility], [address] [place] [address] Swimming Pool Salesperson Bob Cottrell MD Stone Source October 31, 2013 8:30am Kidney - Stone Analysis performed at [place], [place] [address]Medical Director Bob Cottrell, Corrected result; previously reported as KIDNEY on 10/31/13 at 11:56 by V/AUT --- 11/01/132128 --- STOS previously reported as: KIDNEY [place] [address] Swimming Pool Salesperson Bob Cottrell, Stone Weight October 31, 2013 [...] IU/mL - Thyroglobulin Ab screen performed at [facility], [address] [place] [address] Swimming Pool Salesperson Marlena Cottrell MD Thyroid Stimulating Hormone (TSH) October 25, 2013 1:45pm < 0.02 MIU/L L 0.47-4.68 Thyroperoxidase Antibody August 15, 2013 11:10pm <3 IU/mL - Thyroperoxidase Ab (TPO) performed at [facility], [address] [place] [address] Swimming Pool Salesperson Marlena Cottrell MD Thyroxine (T4) August 15, 2013 6:50pm 10.9 ug/dL - Thyroxine (T4) performed at [facility], [address] [place] [address] Swimming Pool Salesperson Marlena Cottrell MD Total Bilirubin December 19, [...] 92 ng/dL - T3 Total performed at [facility], [address] [place], [place] [address]Medical Director Marlena Cottrell MD Troponin I October [...] % - Eosinophil Count, Urine performed at [facility], [address] [place] [address] Swimming Pool Salesperson Marlena Cottrell MD Urine Glucose (UA) December 08, 2013 12:02pm Negative - Urine Ketones December 08, 2013 12:02pm Negative - Urine Leukocyte Esterase December 08, 2013 12:02pm 2+ H - Urine Nitrite December 08, 2013 12:02pm Negative - Urine Osmolality October 30, 2013 1:51pm 366 mOsm/kg - Osmolality, [place] [address] Swimming Pool Salesperson Marlena Cottrell MD Urine Protein December 08, 2013 12:02pm 1+ H - Urine RBC December 08, 2013 12:02pm 30-50 /HPF H - Urine Random Creatinine October 30, 2013 1:51pm 19.7 MG/DL - Has specimen been collected/obtained? Y Urine Random Sodium October 30, 2013 1:51pm 166 MEQ/L H 30-90 Has specimen been collected/obtained? Y Urine Specific [place] December 08, 2013 12:02pm 1.020 - Urine [...] 5:55pm Name: LUIS M BERMAN Unit #: [id number] : 1965 Sex: F Loc / Svc: SCU DOS: 12/05/13 Signed Report #: [id number] DIAGNOSTIC IMAGING REPORT TYPE OF EXAM: RF [...] PATE MD Encounters Encounter Location Date/Time Registered [facility] 12/18/13 9:57am Registered [facility] 12/12/13 1:27pm Registered [facility] 12/08/13 12:20pm Registered [facility] 12/08/13 11:48am Registered [facility] 12/06/13 10:08am Registered [facility] 12/04/[address] [facility] 12/01/13 9:33am Registered [facility] 11/28/13 1:25pm Registered [facility] 11/23/13 8:34am Registered [facility] 11/22/13 12:39pm Registered [facility] 11/22/13 12:24pm Registered Clinic [facility] 11/17/13 10:26am Registered Clinic [facility] 11/15/13 1:39pm Discharged Recurring [facility] 11/14/13 8:42am Registered Clinic [facility] 11/08/13 4:28pm Registered Clinic [facility] 11/08/13 9:01am Registered Clinic [facility] 11/07/13 10:27am Discharged Inpatient [facility] 10/25/13 12:11pm Departed Emergency Room [facility] 10/18/13 11:25am Departed Emergency Room [facility] 10/10/13 8:36pm
--- OUTSIDE RECORDS SUMMARY | 2016-05-16 11:50 | XMS REPORT | Continuity of Care Document ---
Author Author [facility] Organization [facility] Address Unknown Phone Unavailable Care Team Providers Care Multiplex Operator Name Role Phone HAMILTON RECINOS DO Primary Care Physician [phone] Insurance Providers Payer Name Policy Number Subscriber Name Relationship [facility] Community Plan [id number] Luis M Aragon 19 Self Advance Directives [...] UP APPOINTMENT WITH DR. RECINOS ON WEDNESDAY [phone] MAR IN 2 [...] F (96.8 - 99.1) Temperature (Calculated Celsius) 36.07696 degrees C (36.0 - 37.3) Temperature Source [...] performed at [facility], [address] [facility], [place] [address]Jaghiis Director Marlena Cottrell MD Hematocrit August 23, [...] 10.9 ug/dL - Thyroxine (T4) performed at [facility], [facility] [address] [place] [address] Behavioral School Counselors Marlena Cottrell MD Total Bilirubin August 23, [...] performed at [facility], [address] [place] [address] [employer]al School Counselors Marlena Cottrell MD Urine Protein August 21, 2013 12:52pm 2+ H - Urine RBC August 21, 2013 12:52pm 50-200 /HPF H - Urine Random Creatinine August 15, 2013 8:00pm 20.9 MG/DL - Has specimen been collected/obtained? Y Urine Random Sodium August 15, 2013 8:00pm 18 MEQ/L L 30-90 Has specimen been collected/obtained? Y Urine Specific [place] August 21, 2013 12:52pm 1.025 - Urine [...] 23, 2013 10:13am LAB TEST FORM REQUEST [id number] - Chlamydia trachomatis Amplified DNA October 22, [...] IU/mL - Thyroperoxidase Ab (TPO) performed at [facility], [address] [place] [address] Behavioral School Counselors Marlena Cottrell MD Reactive Lymphocytes # April 21, 2013 9:00am 0.2 T/MM3 H 0-0 Thyroglobulin Antibody Screen August 15, 2013 6:50pm <3 IU/mL - Thyroglobulin Ab screen performed at [facility], [address] [place] [address] Behavioral School Counselors Marlena Cottrell MD Immature Granulocyte # (Auto) [...] performed at [facility], [address] [place], [place] [address]Medical Director Marlena Cottrell MD C. difficile Toxin [...] PATE MD Encounters Encounter Location Date/Time Registered [facility] 08/23/13 8:41am Registered Clinic [facility] 08/21/13 12:49pm Registered Clinic [facility] 08/21/13 9:03am Discharged Inpatient [facility] 08/15/13 8:45pm Registered Clinic [facility] 08/14/13 12:51pm Registered Clinic [facility] 08/14/13 10:46am Registered Clinic [facility] 08/09/13 6:49am Registered Clinic [facility] 07/31/13 9:09am Registered Clinic [facility] 07/26/13 10:13am Registered Clinic [facility] 07/19/13 10:31am Registered Clinic [facility] 07/18/13 11:35am Registered Clinic [facility] 07/18/13 9:09am Discharged Recurring [facility] 07/07/13 10:00am Registered Clinic [facility] 06/26/13 8:37am Discharged Inpatient [facility] 06/19/13 10:10am Registered Clinic [facility] 06/14/13 8:34am Registered Clinic [facility] 06/12/13 10:07am Registered Clinic [facility] 06/12/13 10:03am Registered Clinic [facility] 06/02/13 1:25pm Registered Clinic [facility] 05/26/13 6:19am
--- NOTE | 2016-05-16 11:51 | ERPDOC ---
Departure Disposition Decision Date: May 16, 2016 Disposition Decision Time: 14:30 Disposition: 02 TO [facility] Impression Impression Impression: Primary Impression: Nausea & vomiting Vomiting type: unspecified Vomiting Intractability: unspecified Qualified Codes: R11.2 - Nausea with vomiting, unspecified Additional Impressions: UTI (lower urinary tract infection) Hypokalemia Severity: Moderate Condition: Improved Seen By: Physician only Referrals: HAMILTON RECINOS DO (Family) Problems/Meds/Labs Reviewed?: Yes Medications reviewed and manag: Yes Follow up care ordered?: Yes Mental Status: Alert, Oriented HPI - General Medical General Chief Complaint: Nausea,Vomiting,Diarrhea Stated Complaint: DIARRHEA/VOMITING Time Seen by Provider: 11:23 Source: patient, family Exam Limitations: no limitations HPI - General Medical Initial Comments 50-year-old female presents to emergency department with a chief complaint of intractable nausea and vomiting. Patient states that she has been vomiting constantly for the past 24 hours. Patient noted onset of symptoms one day ago. She notes generalized abdominal discomfort as well. Patient describes her generalized abdominal discomfort as crampy. There is no radiation. It is moderate in nature. Patient denies any other complaints or associated symptoms. Patient was at home when her symptoms began. Symptoms have been persisted in nature since onset. She does not note any exacerbating or remitting factors. No other complaints or associated symptoms. She denies any trauma, travel, poorly prepared foods or recent antibiotic use. Occurred At: home Onset: Gradual Allergies: Coded Allergies: gentamicin (Verified Allergy, Unknown, FACIAL SWELLING, 05/16/16) Past History Patient Surgical History [id number]. Rectal tumor [id number] Complete [id number] Bilateral nephrostomy tubes placed in 2014. Left nephrostomy removed beginning of 2015. Appendectomy Exploratory laparotomy Past Medical History Metabolic: cancer, hypertension, hyperthyroidism ENMT: allergies, dental problems, vision problems GI: GERD, other, ulcers Female: UTI, kidney stones Neurological: neuropathy Hematologic: DVT, anemia, blood transfusion, pancytopenia Psychological: depression Surgical History General: EGD, appendix, colonoscopy, exploratory laparotomy, other Reproductive/: , hysterectomy, other Family History Family History: Negative Family PMH: FOUND: [place] Vaccines Hx Influenza Vaccination: Yes Hx Pneumococcal Vaccination: Yes Hx Tetanus, Diptheria, Pertuss: Yes Social History Smoking Status: Never smoker Does patient use chewing tobac: No # of Packs/Tins per Day: 1 Second Hand Exposure: No Substance Use Type: does not use Alcohol Intake: none Marital Status: Single Current Occupational Status: unemployed Review of Systems Constitutional Constitutional: DENIES: chills, fever Eyes General: DENIES: erythema, exudate Lids/Accessories: DENIES: erythema, swelling Vision: DENIES: acuity, blurring ENMT Ears: DENIES: drainage, erythema Hearing: DENIES: hearing loss Balance: DENIES: ataxia, falling to one side Sinuses: DENIES: congestion, pain Nose: DENIES: pain Mouth/Throat: DENIES: painful swallowing, sore throat Teeth: DENIES: pain Jaw: DENIES: pain Cardiovascular Cardiac: DENIES: chest pain, dyspnea on exertion Rhythm/Rate: DENIES: irregular beat, palpitations Vascular: DENIES: pedal edema, unilateral swelling Pulmonary Respiratory: DENIES: cough, dyspnea, pleuritic chest pain, sputum GI Upper Abdomen: nausea, pain, vomiting Lower Abdomen: diarrhea, pain General: DENIES: dysuria, pain Musculoskeletal General: DENIES: joint pain, tenderness Integumentary Skin: DENIES: itching, rash Neurological General: DENIES: headache, numbness, weakness Psychiatric Psychiatric: DENIES: emotional instability, suicidal ideation/attempt Endocrine Endocrine: DENIES: polydipsia, polyphagia Hematologic/Lymphatic Hematologic/Lymphatic: DENIES: frequent nosebleeds, lymphadenopathy Allergic/Immunological Allergic/Immunoligical: DENIES: allergic reactions, hives Physical Exam General General Nourishment: well nourished, well developed, appears stated age, no acute distress, adult General Body Habitus: well groomed Vitals and Pain First Documented Vital Signs Date Time Temp Pulse Resp B/P Pulse Ox O2 Delivery O2 Flow Rate FiO2 05/16/16 11:05 97.5 78 14 126/82 99 Room Air Weight: Kilograms: 49.200 Height (feet): 5 Height (inches): 3.00 Triage Pain Scale: RN VS reviewed by Provider: Yes Normal Exams: Head: Normocephalic w/o trauma Eyes: Pupils are PERRLA w/ EOMI, No scleral icterus, irritation, or foreign bodies noted ENMT: No facial trauma, nasal exudates, pharyngeal erythema, or exudates are noted Dental: No fractured, loose, or missing teeth noted Neck: Full range of motion, without adenopathy, JVD, bruits or thyromegaly Chest/Resp: Clear all rodriguez, with good airflow, and symmetry bilaterally CV: Regular rate and rhythm, without murmur or gallop, Pulses 2+ all extremities, capillary refill, <2 seconds all ext., no pedal edema noted Abdomen: Bowel sounds positive, soft, non-tender, non-distended, no hepatosplenomegaly, masses or bruits noted Lymphatic: No lymphadenopathy, or lymphedema noted Musculoskeletal: No tenderness, or deformity noted, good range of motion, all extremities Integumentary: No rashes, hives, or bruising noted, hair and nails, without abnormality Neurologic: Patient is alert, and oriented, cranial nerves, motor/sensory/ cerebellar, exams w/o gross deficits, to observation Psychiatric: Patient exhibits, appropriate attention, emotion and affect Differential Diagnoses Considering: Metabolic, UTI, Other (small bowel obstruction, colitis) Progress Results/Orders Orders Procedure Category Date Status Time Cbc W/Auto LAB 05/16/16 Complete Diff-Reflex Manual Cmp - Comprehensive LAB 05/16/16 Complete Metabolic Lipase LAB 05/16/16 Complete LAB 05/16/16 Complete Qualitative, Urine 11:44 Normal Saline (Normal PHA 05/16/16 Complete Saline Iv) 11:45 Ondansetron Inj PHA 05/16/16 Complete (Zofran) 11:45 Morphine Sulfate PHA 05/16/16 Complete (Morphine) 11:45 EKG EKG 05/16/16 Taken UA, LAB 05/16/16 Complete Dip&Micro(Complete) & 13:12 Ct Abd/Pelvis W/O CT 05/16/16 Resulted Contrast 13:20 Urine Culture THANIA 05/16/16 In Process 13:29 Water For PHA 05/16/16 Complete Injection... 14:00 Morphine Sulfate PHA 05/16/16 Complete (Morphine) 14:00 Ondansetron Inj PHA 05/16/16 Complete (Zofran) 14:00 Place In Facility: ED ADM 05/16/16 Transmitted 14:42 Lab Results Laboratory Tests Test 05/16/16 12:30 05/16/16 13:12 White Blood Count 4.2T/MM3 Red Blood Count 3.36M/MM3 Hemoglobin 9.7GM/DL Hematocrit 28.9% Mean Corpuscular Volume 86.0UM3 Mean Corpuscular Hemoglobin 28.9UUG Mean Corpuscular Hemoglobin Concent 33.6GM/DL RDW Standard Deviation 54.3FL Platelet Count 350T/MM3 Mean Platelet Volume 9.5UM3 Immature Granulocyte % (Auto) 0.5% Neutrophils (%) (Auto) 75.5% Lymphocytes (%) (Auto) 17.6% Monocytes (%) (Auto) 6.0% Eosinophils (%) (Auto) 0.2% Basophils (%) (Auto) 0.2% Absolute Immature Granulocyte (auto 0.02T/MM3 Absolute Neutrophils (auto) 3.2T/MM3 Absolute Lymphocytes (auto) 0.7T/MM3 Absolute Monocytes (auto) 0.3T/MM3 Absolute Eosinophils (auto) 0.0T/MM3 Absolute Basophils (auto) 0.0T/MM3 Turbidity < 20 Sodium Level 144MEQ/L Potassium Level 2.4MEQ/L Chloride Level 115MEQ/L Carbon Dioxide Level 20MEQ/L Anion Gap 9MEQ/L Blood Urea Nitrogen 14.0MG/DL Creatinine 1.5MG/DL Glomerular Filtration Rate Calc 37 BUN/Creatinine Ratio 9RATIO Glucose Level 113MG/DL Calculated Osmolality 279MOSM/KG Calcium Level 7.4MG/DL Magnesium Level 1.9MG/DL Total Bilirubin 0.70MG/DL Icterus Index < 2 Aspartate Amino Transf (AST/SGOT) 19U/L Alanine Aminotransferase (ALT/SGPT) 39U/L Alkaline Phosphatase 192U/L Total Protein 5.5G/DL Albumin 2.1G/DL Globulin 3.4G/DL Albumin/Globulin Ratio 0.6RATIO Lipase 31U/L Chemistry Specimen Hemolysis < 15 Urine Collection Type Cleancatch-midstream Urine Color Yellow Urine Turbidity Sl cloudy Urine pH 5.5 Urine Specific [place] 1.020 Urine Protein 1+ Urine Glucose (UA) Negative Urine Ketones Negative Urine Blood 2+ Urine Nitrite Positive Urine Bilirubin Negative Urine Urobilinogen 1.0EU/DL Urine Leukocyte Esterase 2+ Urine RBC 3-5/HPF Urine WBC 50-200/HPF Urine Squamous Epithelial Cells 0-5 Urine Bacteria 3+ Urine Yeast Trace Urine Culture Indicated Cult reflexed &setup Urine Test Negative Medications Current ED Medications Sodium Chloride (Normal Saline IV) 1,000 ml @ 999 mls/hr Q1H1M ONCE IV Last administered on 05/16/16 12:41; Start 05/16/16 at 11:45; Stop 05/16/16 at 12:45 ; Status DC Ondansetron HCl (Zofran) 4 mg O ONCE IV Last administered on 05/16/16 12:41; Start 05/16/16 at 11:45; Stop 05/16/16 at 11:46; Status DC Morphine Sulfate 4 mg 4 mg O ONCE IV Last administered on 05/16/16 12:42; Start 05/16/16 at 11:45; Stop 05/16/16 at 11:46; Status DC Potassium Chloride/Sterile Water (KCl/Water) 105 ml @ 100 mls/hr Q1H3M IV Last administered on 05/16/16 19:15; Start 05/16/16 at 14:00; Stop 05/16/16 at 18:11; Status DC Morphine Sulfate (Morphine) 4 mg O ONCE IV Last administered on 05/16/16 14: 25; Start 05/16/16 at 14:00; Stop 05/16/16 at 14:01; Status DC Ondansetron HCl (Zofran) 4 mg O ONCE IV Last administered on 05/16/16 14:25; Start 05/16/16 at 14:00; Stop 05/16/16 at 14:01; Status DC Progress Progress Labs/imaging were discussed in detail with the patient and family and questions are answered. Patient is given IV hydration. Patient is given parental narcotic and antiemetic medications intravenously which improved her symptoms. Patient is given intravenous potassium supplementation. Patient is given Rocephin 1 g intravenously for potential urinary tract infection. Patient is admitted to the service of the hospitalist Dr. Tierney in improved condition. Patient has severe hypokalemia with intractable nausea and vomiting. She'll be admitted for further evaluation and treatment. Patient is in agreement with the current plan of management. She is admitted to the hospital in improved condition. No further orders from accepting physician who is in agreement with the current plan of management. CT CT : CT: Abd/Pelvis no contrast Interpretation: Abnormal, Reviewed Written Report (acriticality medications typical of chronic pancreatitis. Mild fatty liver. Partial colectomy. Unchanged peristomal hernia. Left double-J ureteral stent. Right percutaneous nephrostomy tube. No acute processes.) KARLA CAREY DO May 16, 2016 11:51
--- OUTSIDE RECORDS SUMMARY | 2016-05-16 11:51 | XMS REPORT | Continuity of Care Document ---
Author Author [facility] LIVE Organization [facility] LIVE Address Unknown Phone Unavailable Care Team Providers Care Production Broaching Machine Operator Name Role Phone HAMILTON RECINOS DO Primary Care Physician [phone] Insurance Providers Payer Name Policy Number Subscriber Name Relationship [facility] Community Plan [id number] Luis M Aragon 19 Self Advance Directives [...] IN 1 WEEK. CBC, CMP, MG AT [facility] BEFORE APPOINTMENT WITH DR RECINOS.-- DR. RECINOS APPOINTMENT ON 09/08/13 AT 10:15 AM--PHONE # [phone] *FOLLOW UP WITH DR NAYLOR--- APPOINTMENT WITH DR. SASCHA NAYLOR, SCHEDULED ON 09/08/13 *FOLLOW UP WITH DR MAR APPOINTMENT MADE ON 10/03/13 AT 2:30PM [phone]. TSH AND FREE T4 LAB DRAWN THAT DAY AT [facility] AND SENT TO DR MAR. Patient Instructions: RETURN TO CARE IMMEDIATELY IF ABDOMINAL PAIN, CONSTIPATION SHOULD WORSEN. General Information: *CBC, CMP, MG IN ONE WEEK AT [facility] BEFORE APPOINTMENT WITH DR RECINOS. *PER DR [...] of your legs. 3.During office hours, call [phone] 4. After hours, please call [facility] at [phone], and have the turn operator page your Surgeon IN THE EVENT OF AN EMERGENCY, seek medical care at the nearest Emergency Room General Information: Follow up with cardiology in 2-4 weeks. call die turner of choice dr nation or dr huitron Condition at time of discharge: Good Plan of Care Discharge Date 09/01/13 2:41pm Disposition 02 TO [facility] Condition at Discharge Improved Instructions/Education [...] 296 mg/dL H - Haptoglobin performed at [facility], [address], [place] [address]Wvronsh Director Marlena Cottrell MD Hematocrit October 18, [...] 10.9 ug/dL - Thyroxine (T4) performed at [facility] Reference Lab, [address] [place] [address] Reinsurance Clerk Marlena Cottrell MD Total Bilirubin October 18, [...] 114 mOsm/kg - Osmolality, Urine performed at [facility], [address] [facility], [id number] Reinsurance Clerk Marlena Cottrell MD Urine Protein October 18, [...] Has specimen been collected/obtained? Y Urine Specific [place] October 18, 2013 1:15pm 1.010 L - [...] 09, 2013 10:39am LAB TEST FORM REQUEST [id number] - Chlamydia trachomatis Amplified DNA October 22, [...] IU/mL - Thyroperoxidase Ab (TPO) performed at [facility] Reference [facility], [address] [place] [address] Reinsurance Clerk Marlena Cottrell MD Reactive Lymphocytes # April 21, 2013 9:00am 0.2 T/MM3 H 0-0 Thyroglobulin Antibody Screen August 15, 2013 6:50pm <3 IU/mL - Thyroglobulin Ab screen performed at [facility] Reference Lab, [address] [place] [address] Reinsurance Clerk Marlena Cottrell MD Immature Granulocyte # (Auto) [...] 92 ng/dL - T3 Total performed at [facility], [address] [place], [place] [address]Wbihktz Director Marlena Cottrell MD C. difficile Toxin [...] 10:00am Name: LUIS M ARAGON Unit #: [id number] : 1965 Sex: F Loc / Svc: [facility] DOS: 09/04/13 Signed Report #: [id number] DIAGNOSTIC IMAGING REPORT TYPE OF EXAM: CT [...] ADDON completed 08/29/13 TX/PRO/DX INJ SAME DRUG AGRICULTURAL COMMODITIES INSPECTOR completed 08/29/13 HYDRATE IV INFUSION ADD-ON completed 08/29/13 RPR S/N/AX/GEN/TRNK 2.5CM/< completed 10/10/13 DUSTIN MILES MD Encounters Encounter Location Date/Time Departed Emergency Room [facility] 10/18/13 11:25am Departed Emergency Room [facility] 10/10/13 8:36pm Registered [facility] 10/09/13 8:37am Registered Clinic [facility] 09/13/13 9:03am Registered [facility] 09/04/13 12:22pm Discharged Inpatient [facility] 08/29/13 3:12pm Departed Emergency Room [facility] 08/29/13 5:36am Registered [facility] 08/24/13 7:07am Registered [facility] 08/21/13 12:49pm Registered [facility] 08/21/13 9:03am Discharged Inpatient [facility] 08/15/13 8:45pm Registered Clinic [facility] 08/14/13 12:51pm Registered [facility] 08/14/13 10:46am Registered [facility] 08/09/13 6:49am Registered [facility] 07/31/13 9:09am Registered Clinic [facility] 07/26/13 10:13am Recent Diagnosis
--- OUTSIDE RECORDS SUMMARY | 2016-05-16 11:52 | XMS REPORT | Continuity of Care Document ---
Author Author [facility] LIVE Organization [facility] LIVE Address Unknown Phone Unavailable Care Team Providers Care Postal Sorting Officer Name Role Phone HAMILTON RECINOS DO Primary Care Physician [phone] Insurance Providers Payer Name Policy Number Subscriber Name Relationship [facility] Community Plan [id number] Luis M Aragon 19 Self Advance Directives [...] IN 1 WEEK. CBC, CMP, MG AT [facility] BEFORE APPOINTMENT WITH DR RECINOS.-- DR. RECINOS APPOINTMENT ON 09/08/13 AT 10:15 AM--PHONE # [phone] *FOLLOW UP WITH DR NAYLOR--- APPOINTMENT WITH DR. ANNI NAYLOR, SCHEDULED ON 09/08/13 *FOLLOW UP WITH DR MAR APPOINTMENT MADE ON 10/03/13 AT 2:30PM [phone]. TSH AND FREE T4 LAB DRAWN THAT DAY AT [facility] AND SENT TO DR MAR. Patient Instructions: RETURN TO CARE IMMEDIATELY IF ABDOMINAL PAIN, CONSTIPATION SHOULD WORSEN. General Information: *CBC, CMP, MG IN ONE WEEK AT [facility] BEFORE APPOINTMENT WITH DR RECINOS. *PER DR [...] of your legs. 3.During office hours, call [phone] 4. After hours, please call [facility] at [phone], and have the magnetic tape composer operator page your Surgeon IN THE EVENT [...] F (96.8 - 99.1) Temperature (Calculated Celsius) 36.83620 degrees C (36.0 - 37.3) Temperature Source [...] 296 mg/dL H - Haptoglobin performed at [facility], [address] [facility], [place] [address]Jlzgoya Director Marlena Cottrell MD Hematocrit September 01, [...] 28, 2013 6:57pm LAB TEST FORM REQUEST [id number] - Lactate Dehydrogenase August 28, 2013 9:01am [...] IU/mL - Thyroglobulin Ab screen performed at [facility] Reference Lab, [address] [place] [address] Group Managing Director Marlena Cottrell MD Thyroid Stimulating Hormone (TSH) August 15, 2013 6:50pm < 0.02 MIU/L L 0.47-4.68 COMMENT DO ON BLOOD DRAWN TODAYCOMMENT * & TSH RECEPTOR ANTIBODIES * Thyroperoxidase Antibody August 15, 2013 11:10pm <3 IU/mL - Thyroperoxidase Ab (TPO) performed at [facility] Reference Lab, [address] [place] [address] Group Managing Director Marlena Cottrell MD Thyroxine (T4) August 15, 2013 6:50pm 10.9 ug/dL - Thyroxine (T4) performed at [facility] Reference Lab, [address] [place] [address] Group Managing Director Marlena Cottrell MD Total Bilirubin September 01, [...] T3 Total performed at [facility], [address] [place] [id number] Director Marlena Cottrell MD Troponin I August [...] 114 mOsm/kg - Osmolality, Urine performed at [address] Group Managing Director Marlena Cottrell MD Urine Protein August 29, [...] Has specimen been collected/obtained? Y Urine Specific [place] August 29, 2013 6:30am 1.015 - Has [...] ADDON completed 08/29/13 TX/PRO/DX INJ SAME DRUG MEDICAL STAFF PHYSICIAN completed 08/29/13 HYDRATE IV INFUSION ADD-ON completed 08/29/13 Encounters Encounter Location Date/Time Discharged Inpatient [facility] 08/29/13 3:12pm Departed Emergency Room [facility] 08/29/13 5:36am Registered [facility] 08/28/13 9:05am Registered [facility] 08/24/13 7:07am Registered [facility] 08/21/13 12:49pm Registered [facility] 08/21/13 9:03am Discharged Inpatient [facility] 08/15/13 8:45pm Registered [facility] 08/14/13 12:51pm Registered [facility] 08/14/13 10:46am Registered Clinic [facility] 08/09/13 6:49am Registered Clinic [facility] 07/31/13 9:09am Registered Clinic [facility] 07/26/13 10:13am Registered Clinic [facility] 07/19/13 10:31am Registered Clinic [facility] 07/18/13 11:35am Registered Clinic [facility] 07/18/13 9:09am Discharged Recurring [facility] 07/07/13 10:00am Registered Clinic [facility] 06/26/13 8:37am Discharged Inpatient [facility] 06/19/13 10:10am Registered Clinic [facility] 06/14/13 8:34am Registered [facility] 06/12/13 10:07am Registered [facility] 06/12/13 10:03am
--- OUTSIDE RECORDS SUMMARY | 2016-05-16 11:54 | XMS REPORT | Continuity of Care Document ---
Author Author [facility] LIVE Organization [facility] LIVE Address Unknown Phone Unavailable Care Team Providers Care Jewelry Internship Name Role Phone FELECIA GALLAGHER MD Primary Care Physician [phone] Insurance Providers Payer Name Policy Number Subscriber Name Relationship Medicare [id number] Yvette Aragon 19 Self [facility] Community Plan [id number] Yvette Aragon 19 Self Advance Directives Directive [...] tolerated Follow Up Appointments: Wednesday at [facility] for labs (BMP, Magnesium) 1 week - [...] or chest pain. During office hours, call [phone]. After hours, please call [facility] at [phone] and have the diesel truck crane operator page Dr. Abad or the covering surgeon. *In the event of an emergency, seek medical care at the nearest emergency room.* Condition at time of discharge: Good Plan of Care Discharge Date 04/20/14 5:30pm Disposition 02 TO [facility] Condition at Discharge Improved Instructions/Education Provided [facility] Discharge Instructions Colon Cancer DI for [...] F (96.8 - 99.1) Temperature (Calculated Celsius) 37.66099 degrees C (36.0 - 37.3) Pulse Rate [...] % L - Factor VII performed at [facility], [address] [place], [place] [address]Dejfxxy Director Marlena Cottrell MD Conjugated Bilirubin July [...] Range: 2.6 - 18.5 Test Performed by: [place] [address] Nat Instructor: Franklyn Myers II, M.D., Ph.D. Erythropoietin performed at [facility], [address] [place] [address] Crossing Watchman MD Indigo Torres III May 07, 2014 [...] 253 mg/dL H - Haptoglobin performed at [facility], [address], [place] [address]Fdtjewc Director Viral Atwood, DO Hematocrit June 06, 2014 1:00am 28.2 % L 36-46 Hemoglobin June 06, 2014 1:00am 8.8 GM/DL L 12-16 Hemoglobin A1c June 22, 2013 4:48am 4.9 % L 6-7 <6.0 NON-DIABETIC RANGE6.0-7.0 ADA THERAPEUTIC RANGE >7.0 ACTION SUGGESTED Homocysteine May 07, 2014 10:25am 22.5 umol/L H - Homocysteine performed at [facility] Reference Lab, [address], [place] [address]Nneqjmh Director Viral Atwood DO Hypochromasia October 26, [...] to vitamin B12 deficiency. Test Performed by: [place] [address] Nat Instructor: Franklyn Myers II, M.D., Ph.D. Methylmalonic Acid, Serum performed at [facility], [address] [place] [address] Crossing Watchman Bob Cottrell MD Monocytes # (Auto) June 06, 2014 1:00am 0.8 T/MM3 N 0-0.8 Monocytes # (Manual) May 31, 2014 11:55am 0.3 T/MM3 N 0-0.8 Monocytes % (Manual) May 31, 2014 11:55am 4.0 % N 0-9.0 Monocytes (%) (Auto) June 06, 2014 1:00am 10.6 % H 0-9.0 BF-Rgt-A-Type Natriuretic Peptide January 13, 2014 4:22am 160 [...] below - 10% Calcium carbonateTest Performed by: [place] [address] Nat Instructor: Lonny Franz M.D. Stone Analysis performed at [facility], [address] [place] [address] Crossing Watchman Bob Cottrell MD Stone Source December 19, [...] - Thyroglobulin Ab screen performed at [facility], [address] [place] [address] Crossing Watchman Marlena Cottrell MD Thyroid Stimulating Hormone (TSH) May 14, 2014 9:50am 1.77 MIU/L N 0.47-4.68 Thyroperoxidase Antibody August 15, 2013 11:10pm <3 IU/mL - Thyroperoxidase Ab (TPO) performed at [facility] Reference [facility], [address] [place] [address] Crossing Watchman Marlena Cottrell MD Thyroxine (T4) August 15, 2013 6:50pm 10.9 ug/dL - Thyroxine (T4) performed at [facility] Reference [facility], [address] [place] [address] Crossing Watchman Marlena Cottrell MD Total Bilirubin June 06, [...] 92 ng/dL - T3 Total performed at [facility], [address] [place], [place] [address]Medical Director Marlena Cottrell MD Troponin I January [...] - Eosinophil Count, Urine performed at [facility], [address] [place] [address] Crossing Watchman Marlena Cottrell MD Urine Glucose (UA) June [...] 366 mOsm/kg - Osmolality, Urine performed at [facility], [address] [place] [address] Crossing Watchman Marlena Cottrell MD Urine Protein June 06, [...] Has specimen been collected/obtained? Y Urine Specific [place] June 06, 2014 12:15am 1.015 - Has [...] 2011 5:55pm Name: YVETTE ARAGON Unit #: [id number] : 1965 Sex: F Loc / Svc: ED DOS: 05/16/14 Signed Report #: [id number] DIAGNOSTIC IMAGING REPORT TYPE OF EXAM: CT [...] CT ABD & PELV W/CONTRAST completed 03/08/14 [id number]"INFUSION, NORMAL SALINE SOLUTION , 250 CC" completed 03/08/14 [id number]"LOW OSMOLAR CONTRAST MATERIAL, 300-399 MG/ML IODINE C completed E&M LEVEL - FACILITY completed 03/21/14 PET IMAGE W/CT FULL BODY completed 03/14/14 [id number]"FLUORODEOXYGLUCOSE F-18 FDG, DIAGNOSTIC, PER STUDY DO completed [...] ADDON completed 05/16/14 TX/PRO/DX INJ SAME DRUG JAVA WEB ARCHITECT completed 05/16/14 TX/PRO/DX INJ SAME DRUG JAVA WEB ARCHITECT completed 05/16/14 EMERGENCY DEPT VISIT completed 05/16/14 [id number] ITEM OR SERVICE completed 05/16/14 [id number]"INJECTION, KETOROLAC TROMETHAMINE, PER 15 MG" completed 05/16/14 [id number]"INJECTION, ONDANSETRON HYDROCHLORIDE, PER 1 MG" completed 05/16/14 [id number]"INJECTION, FENTANYL CITRATE, 0.1 MG" completed 05/16/14 [id number]"INJECTION, FENTANYL CITRATE, 0.1 MG" completed 05/16/14 [id number]"INJECTION, FENTANYL CITRATE, 0.1 MG" completed 05/16/14 [id number]"INFUSION, NORMAL SALINE SOLUTION , 1000 CC" completed 05/16/14 Encounters Encounter Location Date/Time Registered Emergency Room [facility] 06/06/14 12:01am Registered Clinic [facility] 05/31/14 11:35am Registered Clinic [facility] 05/29/14 1:25pm Registered [facility] 05/24/14 10:08am Departed Emergency Room [facility] 05/16/14 9:47pm Registered Clinic [facility] 05/14/14 12:15pm Registered Clinic [facility] 05/14/14 9:58am Registered [facility] 05/11/14 7:06am Registered [facility] 05/03/14 1:28pm Registered Clinic [facility] 05/03/14 10:23am Departed Emergency Room [facility] 05/02/14 11:27am Registered [facility] 05/01/14 1:46pm Discharged Inpatient [facility] 04/14/14 3:53pm Registered [facility] 04/06/14 12:16pm Discharged Recurring [facility] 04/05/14 2:38pm Registered Clinic [facility] 04/05/14 11:53am Registered [facility] 04/03/14 1:49pm Registered [facility] 03/27/14 1:36pm Registered [facility] 03/21/14 1:39pm Registered Clinic [facility] 03/14/14 8:05am Registered Clinic [facility] 03/08/14 11:36am Recent Diagnosis
--- OUTSIDE RECORDS SUMMARY | 2016-05-16 11:54 | XMS REPORT | Continuity of Care Document ---
Author Author [facility] LIVE Organization [facility] Address Unknown Phone Unavailable Care Team Providers Care Electronic Coils Supervisor Name Role Phone HAMILTON RECINOS DO Primary Care Physician [phone] Insurance Providers Payer Name Policy Number Subscriber Name Relationship [facility] Community Plan [id number] Luis M Aragon 19 Self Advance Directives [...] UP APPOINTMENT WITH DR. RECINOS ON WEDNESDAY [phone] MAR IN 2 [...] of your legs. 3.During office hours, call [phone] 4. After hours, please call [facility] at [phone], and have the maintenance operator page your Surgeon IN THE EVENT OF AN EMERGENCY, seek medical care at the nearest Emergency Room Condition at time of discharge: Good Care Plan Discharge Patient: Goal: Understand discharge plan Patient Instructions: see patient instructions Plan of Care Discharge Date 08/19/13 12:16pm Disposition 02 TO [facility] Condition at Discharge [...] F (96.8 - 99.1) Temperature (Calculated Celsius) 36.39011 degrees C (36.0 - 37.3) Pulse Rate [...] 296 mg/dL H - Haptoglobin performed at [facility], [address], [place], [place] [address]Jotuhnn Director Marlena Cottrell MD Hematocrit August 29, [...] 10.9 ug/dL - Thyroxine (T4) performed at [facility], [address] [place] [address] Car Inspector Marlena Cottrell MD Total Bilirubin August 29, [...] 114 mOsm/kg - Osmolality, Urine performed at [facility], [address] [facility], [id number] Car Inspector Marlena Cottrell MD Urine Protein August 29, [...] Has specimen been collected/obtained? Y Urine Specific [place] August 29, 2013 6:30am 1.015 - Has [...] 28, 2013 6:57pm LAB TEST FORM REQUEST [id number] - Chlamydia trachomatis Amplified DNA October 22, [...] IU/mL - Thyroperoxidase Ab (TPO) performed at [facility], [address] [place] [address] Car Inspector Marlena Cottrell MD Reactive Lymphocytes # April 21, 2013 9:00am 0.2 T/MM3 H 0-0 Thyroglobulin Antibody Screen August 15, 2013 6:50pm <3 IU/mL - Thyroglobulin Ab screen performed at [facility], [address] [place] [address] Car Inspector Marlena Cottrell MD Immature Granulocyte # (Auto) [...] 92 ng/dL - T3 Total performed at [facility], [address] [place] [id number] Director Marlena Cottrell MD C. difficile Toxin [...] Encounters Encounter Location Date/Time Departed Emergency Room [facility] 08/29/13 5:36am Registered [facility] 08/28/13 9:05am Registered [facility] 08/24/13 7:07am Registered [facility] 08/21/13 12:49pm Registered [facility] 08/21/13 9:03am Discharged Inpatient [facility] 08/15/13 8:45pm Registered Clinic [facility] 08/14/13 12:51pm Registered Clinic [facility] 08/14/13 10:46am Registered Clinic [facility] 08/09/13 6:49am Registered Clinic [facility] 07/31/13 9:09am Registered Clinic [facility] 07/26/13 10:13am Registered Clinic [facility] 07/19/13 10:31am Registered Clinic [facility] 07/18/13 11:35am Registered Clinic [facility] 07/18/13 9:09am Discharged Recurring [facility] 07/07/13 10:00am Registered Clinic [facility] 06/26/13 8:37am Discharged Inpatient [facility] 06/19/13 10:10am Registered Clinic [facility] 06/14/13 8:34am Registered Clinic [facility] 06/12/13 10:07am Registered Clinic [facility] 06/12/13 10:03am Registered Clinic [facility] 06/02/13 1:25pm Recent Diagnosis
--- OUTSIDE RECORDS SUMMARY | 2016-05-16 11:55 | XMS REPORT | Continuity of Care Document ---
Author Author [facility] Organization [facility] Address Unknown Phone Unavailable Care Team Providers Care Eye Physician Name Role Phone HAMILTON RECINOS DO Primary Care Physician [phone] Insurance Providers Payer Name Policy Number Subscriber Name Relationship [facility] Community Plan [id number] Luis M Aragon 19 Self Advance Directives [...] WEEK. CBC, CMP, MG AT [facility] BEFORE APPOINTMENT WITH DR RECINOS.-- DR. RECINOS APPOINTMENT ON 09/08/13 AT 10:15 AM--PHONE # [phone] *FOLLOW UP WITH DR NAYLOR--- APPOINTMENT WITH DR. SASCHA NAYLOR, SCHEDULED ON 09/08/13 *FOLLOW UP WITH DR MAR APPOINTMENT MADE ON 10/03/13 AT 2:30PM [phone]. TSH AND FREE T4 LAB DRAWN THAT DAY AT [facility] AND SENT TO DR MAR. Patient Instructions: RETURN TO CARE IMMEDIATELY IF ABDOMINAL PAIN, CONSTIPATION SHOULD WORSEN. General Information: *CBC, CMP, MG IN ONE WEEK AT [facility] BEFORE APPOINTMENT WITH DR RECINOS. *PER DR [...] of your legs. 3.During office hours, call [phone] 4. After hours, please call [facility] at [phone], and have the power switchboard operator page your Surgeon IN THE EVENT OF AN EMERGENCY, seek medical care at the nearest Emergency Room Condition at time of discharge: Good Care Plan Discharge Patient: Goal: Understand discharge plan Patient Instructions: see patient instructions see patient instructions Plan of Care Discharge Date 09/01/13 2:41pm Disposition 02 TO [facility] Condition at Discharge Improved Instructions/Education [...] F (96.8 - 99.1) Temperature (Calculated Celsius) 36.42382 degrees C (36.0 - 37.3) Pulse Rate [...] 296 mg/dL H - Haptoglobin performed at [facility], [address] [facility] [place], [place] [address]Yqsvsov Director Marlena Cottrell MD Hematocrit October 09, [...] [facility] Reference Lab, [address] [place] [address] Safety Compliance Specialist Marlena Cottrell MD Total Bilirubin October 09, [...] 114 mOsm/kg - Osmolality, Urine performed at [facility], [address] [facility], [place], [address] Safety Compliance Specialist Marlena Cottrell MD Urine Protein August 29, [...] Has specimen been collected/obtained? Y Urine Specific [place] August 29, 2013 6:30am 1.015 - Has [...] 09, 2013 10:39am LAB TEST FORM REQUEST [id number] - Chlamydia trachomatis Amplified DNA October 22, [...] [facility] Reference Lab, [address] [place] [address] Safety Compliance Specialist Marlena Cottrell MD Reactive Lymphocytes # April 21, 2013 9:00am 0.2 T/MM3 H 0-0 Thyroglobulin Antibody Screen August 15, 2013 6:50pm <3 IU/mL - Thyroglobulin Ab screen performed at [facility] Reference Lab, [address] [place] [address] Safety Compliance Specialist Marlena Cottrell MD Immature Granulocyte # [...] 92 ng/dL - T3 Total performed at [facility], [address] [place], [place] [address]Fsbsuzo Director Marlena Cottrell MD C. difficile Toxin [...] 10:00am Name: LUIS M ARAGON Unit #: [id number] : 1965 Sex: F Loc / [facility]: [facility] DOS: 09/04/13 Signed Report #: [id number] DIAGNOSTIC IMAGING REPORT TYPE OF EXAM: CT [...] ADDON completed 08/29/13 TX/PRO/DX INJ SAME DRUG VISUAL STYLIST completed 08/29/13 HYDRATE IV INFUSION ADD-ON completed 08/29/13 Encounters Encounter Location Date/Time Departed Emergency Room [facility] 10/10/13 8:36pm Registered [facility] 10/09/13 8:37am Registered [facility] 09/13/13 9:03am Registered [facility] 09/04/13 12:22pm Discharged Inpatient [facility] 08/29/13 3:12pm Departed Emergency Room [facility] 08/29/13 5:36am Registered [facility] 08/24/13 7:07am Registered [facility] 08/21/13 12:49pm Registered [facility] 08/21/13 9:03am Discharged Inpatient [facility] 08/15/13 8:45pm Registered Clinic [facility] 08/14/13 12:51pm Registered Clinic [facility] 08/14/13 10:46am Registered Clinic [facility] 08/09/13 6:49am Registered Clinic [facility] 07/31/13 9:09am Registered Clinic [facility] 07/26/13 10:13am Registered Clinic [facility] 07/19/13 10:31am Registered Clinic [facility] 07/18/13 11:35am Registered [facility] 07/18/13 9:09am Recent Diagnosis
--- OUTSIDE RECORDS SUMMARY | 2016-05-16 11:59 | XMS REPORT | Continuity of Care Document ---
Author Author [facility] Organization [facility] Address Unknown Phone Unavailable Care Team Providers Care Hand Bootmaker Name Role Phone FELECIA GALLAGHER MD Primary Care Physician [phone] Insurance Providers Payer Name Policy Number Subscriber Name Relationship [facility] Community Plan [id number] Yvette Aragon 19 Self Advance Directives Directive [...] 04/20/14 5:30pm Disposition 02 TO [facility] Condition at Discharge Improved Instructions/Education Provided [facility] Discharge Instructions Colon Cancer DI for [...] Y DEC 2013 Historical Hx Tetanus Diptheria [facility] Historical Hx Tetanus, Diptheria, Pertussis UNKNOWN Historical Hx Tetanus Toxoid Vaccination No Historical Vital Signs Acute Vital Signs Vital Response Date/Time Temperature (Fahrenheit) 99.2 deg F (96.8 - 99.1) Temperature (Calculated Celsius) 37.14810 degrees C (36.0 - 37.3) Pulse Rate [...] % L - Factor VII performed at [facility], [address] [facility] [place], [place], [place] [address]Kwzbrjn Director Marlena Cottrell MD Conjugated Bilirubin July [...] Range: 2.6 - 18.5 Test Performed by: [facility] [address] [place] [address] Director Distribution: Franklyn Myers II, M.D., Ph.D. Erythropoietin performed at [facility], [address] [place] [address] Back Feeder Plywood Layup Line Bob Cottrell MD Ferritin May 07, 2014 [...] 253 mg/dL H - Haptoglobin performed at [facility], [address] [facility] [place], [place], [place] [address]Iscuycl Director Viral Atwood DO Hematocrit May 16, 2014 9:30pm 33.8 % L 36-46 Hemoglobin May 16, 2014 9:30pm 11.0 GM/DL DL 12-16 Hemoglobin A1c June 22, 2013 4:48am 4.9 % L 6-7 <6.0 NON-DIABETIC RANGE6.0-7.0 ADA THERAPEUTIC RANGE >7.0 ACTION SUGGESTED Homocysteine May 07, 2014 10:25am 22.5 umol/L H - Homocysteine performed at [facility] Reference Lab, [address], [place], [place] [address]Azfewlj Director Viral Atwood, DO Hypochromasia October 26, [...] to vitamin B12 deficiency. Test Performed by: [facility] [id number] Director Distribution: Franklyn Myers II, M.D., Ph.D. Methylmalonic Acid, Serum performed at [facility], [address] [place] [address] Back Feeder Plywood Layup Line Bob Cottrell MD Monocytes # (Auto) May 16, 2014 9:30pm 0.4 T/MM3 N 0-0.8 Monocytes # (Manual) April 14, 2014 10:45am 0.4 T/MM3 N 0-0.8 Monocytes % (Manual) April 14, 2014 10:45am 5.0 % N 0-9.0 Monocytes (%) (Auto) May 16, 2014 9:30pm 7.3 % N 0-9.0 OK-Qbl-R-Type Natriuretic Peptide January 13, 2014 4:22am 160 [...] below - 10% Calcium carbonateTest Performed by: [address] [address] Director Distribution: Lonny Franz M.D. Stone Analysis performed at [facility], [address] [place], [place] [address] Back Feeder Plywood Layup Line Bob Cottrell MD Stone Source December 19, [...] IU/mL - Thyroglobulin Ab screen performed at [facility] Reference Lab, [address] [place] [address] Back Feeder Plywood Layup Line Marlena Cottrell MD Thyroid Stimulating Hormone (TSH) May 14, 2014 9:50am 1.77 MIU/L N 0.47-4.68 Thyroperoxidase Antibody August 15, 2013 11:10pm <3 IU/mL - Thyroperoxidase Ab (TPO) performed at [facility] Reference Lab, [address] [place] [address] Back Feeder Plywood Layup Line Marlena Cottrell MD Thyroxine (T4) August 15, 2013 6:50pm 10.9 ug/dL - Thyroxine (T4) performed at [facility] Reference Lab, [address] [place] [address] Back Feeder Plywood Layup Line Marlena Cottrell MD Total Bilirubin May 16, [...] 92 ng/dL - T3 Total performed at [facility], [address] [place], [place] [address]Jaloqar Director Marlena Cottrell MD Troponin I January [...] % - Eosinophil Count, Urine performed at [facility] Reference Lab, [address] [place] [address] Back Feeder Plywood Layup Line Marlena Cottrell MD Urine Glucose (UA) May [...] 366 mOsm/kg - Osmolality, Urine performed at [facility], [address] [facility] [place], [place], [place] Back Feeder Plywood Layup Line Marlena Cottrell MD Urine Protein May 17, [...] Has specimen been collected/obtained? Y Urine Specific [place] May 17, 2014 12:05am 1.020 - Has [...] 2011 5:55pm Name: YVETTE ARAGON Unit #: [id number] : 1965 Sex: F Loc / Svc: [facility] DOS: 05/11/14 Signed Report #: [id number] DIAGNOSTIC IMAGING REPORT TYPE OF EXAM: MRI [...] PRESS WOUND [place] </=50 CM completed 02/20/14 [id number]"ADHESIVE BORDER, EACH DRESSING" completed 02/20/14 NEG PRESS WOUND [place] </=50 CM completed 02/23/14 [id number]"ADHESIVE BORDER, EACH DRESSING" completed 02/23/14 CT ABD & PELVIS W/O CONTRAST completed 02/27/14 X-RAY EXAM OF SMALL BOWEL completed 02/27/14 E&M LEVEL - FACILITY completed 03/06/14 CT THORAX W/DYE completed 03/08/14 CT ABD & PELV W/CONTRAST completed 03/08/14 [id number]"INFUSION, NORMAL SALINE SOLUTION , 250 CC" completed 03/08/14 [id number]"LOW OSMOLAR CONTRAST MATERIAL, 300-399 MG/ML IODINE C completed E&M LEVEL - FACILITY completed 03/21/14 PET IMAGE W/CT FULL BODY completed 03/14/14 [id number]"FLUORODEOXYGLUCOSE F-18 FDG, DIAGNOSTIC, PER STUDY DO completed [...] Encounters Encounter Location Date/Time Departed Emergency Room [facility] 05/16/14 9:47pm Registered [facility] 05/14/14 12:15pm Registered [facility] 05/14/14 9:58am Registered [facility] 05/14/14 9:57am Registered [facility] 05/11/14 7:06am Registered [facility] 05/03/14 1:28pm Registered [facility] 05/03/14 10:23am Departed Emergency Room [facility] 05/02/14 11:27am Registered Clinic [facility] 05/01/14 1:46pm Discharged Inpatient [facility] 04/14/14 3:53pm Registered Clinic [facility] 04/06/14 12:16pm Registered [facility] 04/05/14 2:38pm Registered Clinic [facility] 04/05/14 11:53am Registered Clinic [facility] 04/03/14 1:49pm Registered Clinic [facility] 03/27/14 1:36pm Registered Clinic [facility] 03/21/14 1:39pm Registered Clinic [facility] 03/14/14 8:05am Registered Clinic [facility] 03/08/14 11:36am Registered Clinic [facility] 03/06/14 1:39pm Registered Clinic [facility] 02/27/14 8:22am Registered Clinic [facility] 02/23/14 9:06am Registered Clinic [facility] 02/20/14 1:59pm Discharged Recurring [facility] 03/10/13 8:27am Recent Diagnosis
--- OUTSIDE RECORDS SUMMARY | 2016-05-16 12:00 | XMS REPORT | Continuity of Care Document ---
Author Author [facility] Organization [facility] Address Unknown Phone Unavailable Support Name Relationship Address Phone JIGAR WHITTAKER MD Caregiver [address] [place] [phone] FELECIA GALLAGHER MD Caregiver [facility] [address] [place] [address] DAVE WREN Next Of Kin [address] [place] [address] CP Insurance Providers Payer Name Policy Number Subscriber Name Relationship [facility] Community Plan [id number] Luis M Aragon 19 Self Advance Directives [...] Discharge Date 04/20/14 5:30pm Disposition 02 TO [facility] Condition at Discharge Improved Instructions/Education Provided [facility] Discharge Instructions Colon Cancer DI for [...] F (96.8 - 99.1) Temperature (Calculated Celsius) 36.72856 degrees C (36.0 - 37.3) Pulse Rate [...] % L - Factor VII performed at [facility], [address] [place] [address]Budyzaf Director Marlena Cottrell MD Conjugated Bilirubin July [...] 329 mg/dL H - Haptoglobin performed at [facility], [address] [place], [place] [address]Tpiovpf Director Marlena Cottrell MD Hematocrit May 02, [...] 02, 2014 1:08pm 11.2 % H 0-9.0 SE-Hyi-K-Type Natriuretic Peptide January 13, 2014 4:22am 160 [...] below - 10% Calcium carbonateTest Performed by: [place] [address] Register Clerk: Lonny Franz M.D. Stone Analysis performed at [facility], [address] [place] [address] Wireless Cellular Technician Bob Cottrell MD Stone Source December 19, [...] IU/mL - Thyroglobulin Ab screen performed at [facility] Reference Lab, [address] [place] [address] Wireless Cellular Technician Marlena Cottrell MD Thyroid Stimulating Hormone (TSH) April 19, 2014 5:11am 127.00 MIU/L H 0.47-4.68 COMMENT Add on - blood already in lab Thyroperoxidase Antibody August 15, 2013 11:10pm <3 IU/mL - Thyroperoxidase Ab (TPO) performed at [facility] Reference Lab, [address] [place] [address] Wireless Cellular Technician Marlena Cottrell MD Thyroxine (T4) August 15, 2013 6:50pm 10.9 ug/dL - Thyroxine (T4) performed at [facility] Reference Lab, [address] [place] [address] Wireless Cellular Technician Marlena Cottrell MD Total Bilirubin May 02, [...] 92 ng/dL - T3 Total performed at [facility], [address] [place], [place] [address]Medical Director Marlena Cottrell MD Troponin I January [...] % - Eosinophil Count, Urine performed at [facility] Reference Lab, [address] [place] [address] Wireless Cellular Technician Marlena Cottrell MD Urine Glucose (UA) May [...] 366 mOsm/kg - Osmolality, Urine performed at [facility], [address] [facility], [place], [place] Wireless Cellular Technician Marlena Cottrell MD Urine Protein May 02, [...] Has specimen been collected/obtained? Y Urine Specific [place] May 02, 2014 11:45am 1.025 - Has [...] 5:55pm Name: LUIS M ARAGON Unit #: [id number] : 1965 Sex: F Loc / Svc: [facility] DOS: 04/14/14 Signed Report #: [id number] DIAGNOSTIC IMAGING REPORT TYPE OF EXAM: SMALL BOWEL SERIES Dictated By: NORM PALMER MD Indication: ITS.REASON: Small bowel obstruction SMALL BOWEL SERIES: Comparison: Small bowel series dated February 27, 2014 Findings: Hooker Off radiograph of the abdomen was obtained demonstrating [...] PRESS WOUND TX </=50 CM completed 02/06/14 [id number]"ADHESIVE BORDER, EACH DRESSING" completed 02/06/14 X-RAY EXAM OF ABDOMEN completed 02/05/14 RMVL DEVITAL TIS 20 CM/< completed 02/13/14 NEG PRESS WOUND TX </=50 CM completed 02/13/14 340851"ADHESIVE BORDER, EACH DRESSING" completed 02/13/14 X-RAY UPPER GI&SMALL INTEST completed 02/08/14 NEG PRESS WOUND TX </=50 CM completed 02/20/14 [id number]"ADHESIVE BORDER, EACH DRESSING" completed 02/20/14 NEG PRESS WOUND TX </=50 CM completed 02/23/14 305703"ADHESIVE BORDER, EACH DRESSING" completed 02/23/14 CT ABD & PELVIS W/O CONTRAST completed 02/27/14 X-RAY EXAM OF SMALL BOWEL completed 02/27/14 E&M LEVEL - FACILITY completed 03/06/14 CT THORAX W/DYE completed 03/08/14 CT ABD & PELV W/CONTRAST completed 03/08/14 [id number]"INFUSION, NORMAL SALINE SOLUTION , 250 CC" completed 03/08/14 [id number]"LOW OSMOLAR CONTRAST MATERIAL, 300-399 MG/ML IODINE C completed E&M LEVEL - FACILITY completed 03/21/14 PET IMAGE W/CT FULL BODY completed 03/14/14 [id number]"FLUORODEOXYGLUCOSE F-18 FDG, DIAGNOSTIC, PER STUDY DO completed [facility]ITAL TIS 20 CM/< completed 03/27/14 E&M LEVEL - FACILITY completed 04/03/14 US EXAM ABDO BACK WALL COMP completed 04/05/14 EXTREMITY STUDY completed 04/05/14 X-RAY EXAM OF ABDOMEN completed 04/06/14 BLOOD TRANSFUSION SERVICE completed 04/14/14 LUIS MANUEL HOUGH MD Encounters Encounter Location Date/Time Departed Emergency Room [facility] 05/02/14 11:27am Registered [facility] 05/01/14 1:46pm Registered [facility] 05/01/14 10:32am Discharged Inpatient [facility] 04/14/14 3:53pm Registered Clinic [facility] 04/06/14 12:16pm Registered Recurring [facility] 04/05/14 2:38pm Registered Clinic [facility] 04/05/14 11:53am Registered Clinic [facility] 04/03/14 1:49pm Registered Clinic [facility] 03/27/14 1:36pm Registered Clinic [facility] 03/21/14 1:39pm Registered Clinic [facility] 03/14/14 8:05am Registered Clinic [facility] 03/08/14 11:36am Registered Clinic [facility] 03/06/14 1:39pm Registered Clinic [facility] 02/27/14 8:22am Registered Clinic [facility] 02/23/14 9:06am Registered Clinic [facility] 02/20/14 1:59pm Registered Clinic [facility] 02/13/14 1:57pm Registered Clinic [facility] 02/08/14 12:26pm Registered Clinic [facility] 02/07/14 9:58am Registered Clinic [facility] 02/06/14 1:33pm Registered Clinic [facility] 02/05/14 10:21am Discharged Recurring [facility] 03/10/13 8:27am Recent Diagnosis
--- OUTSIDE RECORDS SUMMARY | 2016-05-16 12:01 | XMS REPORT | Continuity of Care Document ---
Author Author [facility] LIVE Organization [facility]IVE Address Unknown Phone Unavailable Care Team Providers Care Heavy Threader Name Role Phone FELECIA GALLAGHER MD Primary Care Physician [phone] Insurance Providers Payer Name Policy Number Subscriber Name Relationship [facility] Community Plan [id number] Yvette Aragon 19 Self Advance Directives Directive [...] F (96.8 - 99.1) Temperature (Calculated Celsius) 37.87369 degrees C (36.0 - 37.3) Pulse Rate [...] % L - Factor VII performed at [facility], [address] [facility], [place], [place] [address]Nablsve Director Marlena Cottrell MD Conjugated Bilirubin July [...] Range: 2.6 - 18.5 Test Performed by: [place] [address] Tourist Agent: Franklyn Myers II, M.D., Ph.D. Erythropoietin performed at [facility], [address] [place] [address] Ecological Technical Officer MD Indigo Torres III May 07, 2014 [...] 253 mg/dL H - Haptoglobin performed at [facility], [address] [place], [place] [address]Systfrr Director Viral Atwood DO Hematocrit May 17, 2014 10:00am 30.2 % L 36-46 Hemoglobin May 17, 2014 10:00am 9.7 GM/DL DL 12-16 Hemoglobin A1c June 22, 2013 4:48am 4.9 % L 6-7 <6.0 NON-DIABETIC RANGE6.0-7.0 ADA THERAPEUTIC RANGE >7.0 ACTION SUGGESTED Homocysteine May 07, 2014 10:25am 22.5 umol/L H - Homocysteine performed at [facility], [address] [place], [place] [address]Iwoaqnv Director Viral Atwood DO Hypochromasia October 26, [...] to vitamin B12 deficiency. Test Performed by: [facility] - [address] [address] Tourist Agent: Franklyn Myers II, M.D., Ph.D. Methylmalonic Acid, Serum performed at [facility], [address] [place], [place] [address] Ecological Technical Officer Bob Cottrell MD Monocytes # (Auto) May 17, 2014 10:00am 0.3 T/MM3 N 0-0.8 Monocytes # (Manual) April 14, 2014 10:45am 0.4 T/MM3 N 0-0.8 Monocytes % (Manual) April 14, 2014 10:45am 5.0 % N 0-9.0 Monocytes (%) (Auto) May 17, 2014 10:00am 5.5 % N 0-9.0 LH-Bzg-X-Type Natriuretic Peptide January 13, 2014 4:22am 160 [...] below - 10% Calcium carbonateTest Performed by: [place] [address] Tourist Agent: Lonny Franz M.D. Stone Analysis performed at [facility], [address] [place] [address] Ecological Technical Officer Bob Cottrell MD Stone Source December 19, [...] screen performed at [facility], [address] [place] [address] Ecological Technical Officer Marlena Cottrell MD Thyroid Stimulating Hormone (TSH) May 14, 2014 9:50am 1.77 MIU/L N 0.47-4.68 Thyroperoxidase Antibody August 15, 2013 11:10pm <3 IU/mL - Thyroperoxidase Ab (TPO) performed at [facility], [address] [place] [address] Ecological Technical Officer Marlena Cottrell MD Thyroxine (T4) August 15, 2013 6:50pm 10.9 ug/dL - Thyroxine (T4) performed at [facility], [address] [place] [address] Ecological Technical Officer Marlena Cottrell MD Total Bilirubin May 17, [...] 92 ng/dL - T3 Total performed at [facility], [address] [place], [place] [address]Medical Director Marlena Cottrell MD Troponin I January [...] Urine performed at [facility], [address] [place] [address] Ecological Technical Officer Marlena Cottrell MD Urine Glucose (UA) May [...] 366 mOsm/kg - Osmolality, Urine performed at [facility], [address] [place] [address] Ecological Technical Officer Marlena Cottrell MD Urine Protein May 17, [...] Has specimen been collected/obtained? Y Urine Specific [place] May 17, 2014 12:05am 1.020 - Has [...] 2011 5:55pm Name: YVETTE ARAGON Unit #: [id number] : 1965 Sex: F Loc / Svc: ED DOS: 05/16/14 Signed Report #: [id number] DIAGNOSTIC IMAGING REPORT TYPE OF EXAM: CT [...] PRESS WOUND [place] </=50 CM completed 02/20/14 [id number]"ADHESIVE BORDER, EACH DRESSING" completed 02/20/14 NEG PRESS WOUND [place] </=50 CM completed 02/23/14 [id number]"ADHESIVE BORDER, EACH DRESSING" completed 02/23/14 CT ABD & PELVIS W/O CONTRAST completed 02/27/14 X-RAY EXAM OF SMALL BOWEL completed 02/27/14 E&M LEVEL - FACILITY completed 03/06/14 CT THORAX W/DYE completed 03/08/14 CT ABD & PELV W/CONTRAST completed 03/08/14 [id number]"INFUSION, NORMAL SALINE SOLUTION , 250 CC" completed 03/08/14 [id number]"LOW OSMOLAR CONTRAST MATERIAL, 300-399 MG/ML IODINE C completed E&M LEVEL - FACILITY completed 03/21/14 PET IMAGE W/CT FULL BODY completed 03/14/14 [id number]"FLUORODEOXYGLUCOSE F-18 FDG, DIAGNOSTIC, PER STUDY DO completed [...] ADDON completed 05/16/14 TX/PRO/DX INJ SAME DRUG HOMEBOUND TEACHER completed 05/16/14 TX/PRO/DX INJ SAME DRUG HOMEBOUND TEACHER completed 05/16/14 EMERGENCY DEPT VISIT completed 05/16/14 [id number] ITEM OR SERVICE completed 05/16/14 [id number]"INJECTION, KETOROLAC TROMETHAMINE, PER 15 MG" completed 05/16/14 318778"INJECTION, ONDANSETRON HYDROCHLORIDE, PER 1 MG" completed 05/16/14 521109"INJECTION, FENTANYL CITRATE, 0.1 MG" completed 05/16/14 373652"INJECTION, FENTANYL CITRATE, 0.1 MG" completed 05/16/14 766548"INJECTION, FENTANYL CITRATE, 0.1 MG" completed 05/16/14 [id number]"INFUSION, NORMAL SALINE SOLUTION , 1000 CC" completed 05/16/14 Encounters Encounter Location Date/Time Registered [facility] 05/17/14 10:11am Departed Emergency Room [facility] 05/16/14 9:47pm Registered [facility] 05/14/14 12:15pm Registered [facility] 05/14/14 9:58am Registered [facility] 05/11/14 7:06am Registered [facility] 05/03/14 1:28pm Registered [facility] 05/03/14 10:23am Departed Emergency Room [facility] 05/02/14 11:27am Registered [facility] 05/01/14 1:46pm Discharged Inpatient [facility] 04/14/14 3:53pm Registered Clinic [facility] 04/06/14 12:16pm Discharged Recurring [facility] 04/05/14 2:38pm Registered Clinic [facility] 04/05/14 11:53am Registered Clinic [facility] 04/03/14 1:49pm Registered Clinic [facility] 03/27/14 1:36pm Registered Clinic [facility] 03/21/14 1:39pm Registered Clinic [facility] 03/14/14 8:05am Registered Clinic [facility] 03/08/14 11:36am Registered Clinic [facility] 03/06/14 1:39pm Registered Clinic [facility] 02/27/14 8:22am Registered Clinic [facility] 02/23/14 9:06am Registered Clinic [facility] 02/20/14 1:59pm Discharged Recurring [facility] 03/10/13 8:27am
--- OUTSIDE RECORDS SUMMARY | 2016-05-16 12:01 | XMS REPORT | Continuity of Care Document ---
Author Author [facility] Organization [facility] Address Unknown Phone Unavailable Care Team Providers Care Administrative And Program Specialist Name Role Phone HAMILTON RECINOS DO Primary Care Physician [phone] Insurance Providers Payer Name Policy Number Subscriber Name Relationship [facility] Community Plan [id number] Luis M Aragon 19 Self Advance Directives [...] with diff, CMP, Mg, Phos done at [facility] before appointment that day. Follow up with [...] F (96.8 - 99.1) Temperature (Calculated Celsius) 36.59461 degrees C (36.0 - 37.3) Temperature Source [...] L - Factor VII performed at [facility], [address] [facility], [place] [address]Werccab Director Marlena Cottrell MD Conjugated Bilirubin July [...] mg/dL H - Haptoglobin performed at [facility], [address] [place], [place] [address]Uqjhqst Director Marlena Cottrell MD Hematocrit February 19, [...] 10.9 ug/dL - Thyroxine (T4) performed at [facility], [address] [place] [address], [id number] Dish Network Installer Marlena Cottrell MD Total Bilirubin February 19, [...] % - Eosinophil Count, Urine performed at [facility] Reference [facility], [address] [place] [address] Dish Network Installer Marlena Cottrell MD Urine Glucose (UA) January [...] mOsm/kg - Osmolality, Urine performed at [facility], [address] [place], [place] Dish Network Installer Marlena Cottrell MD Urine Protein January 12, [...] Has specimen been collected/obtained? Y Urine Specific [place] January 12, 2014 7:30am 1.015 - Has [...] below - 10% Calcium carbonateTest Performed by: [place] [address] Credentialing Specialist: Lonny Franz M.D. Stone Analysis performed at [facility], [address] [place] [address] Dish Network Installer Bob Cottrell MD Glucometer June 20, 2013 6:29pm 108 mg/dL N 65-110 Lab Scanned Report February 19, 2014 8:14pm LAB TEST FORM REQUEST [id number] - Chlamydia trachomatis Amplified DNA October 22, [...] IU/mL - Thyroperoxidase Ab (TPO) performed at [facility], [address] [place] [address] Dish Network Installer Marlena Cottrell MD Reactive Lymphocytes # October 30, 2013 4:44am 0.6 T/MM3 H 0-0 Thyroglobulin Antibody Screen August 15, 2013 6:50pm <3 IU/mL - Thyroglobulin Ab screen performed at [facility], [address] [place] [address] D[employer] Network Installer Marlena Cottrell MD Immature Granulocyte # (Auto) [...] 27, 2012 4:28pm 0.9 MMOL/L N 0.5-0.9 TV-Qpy-A-Type Natriuretic Peptide January 13, 2014 4:22am 160 PG/ML N 0 -175 Rule in cut points: <50 years old=450; 50-75 years old=900; >75 years old=1800; When utilizing ProBNP rule-in cut points, adjustment for impaired renal function is typically not required. Triiodothyonine (T3) (JOSE MIGUEL) August 15, 2013 6:50pm 92 ng/dL - T3 Total performed at [facility], [address] [place], [place] [address]Tjwncam Director Marlena Cottrell MD C. difficile Toxin [...] 3:00pm Name: LUIS M ARAGON Unit #: [id number] : 1965 Sex: F Loc / Svc: [facility] DOS: 02/08/14 Signed Report #: [id number] DIAGNOSTIC IMAGING REPORT TYPE OF EXAM: UPPER [...] PRESS WOUND TX </=50 CM completed 01/02/14 [id number]"ADHESIVE BORDER, EACH DRESSING" completed 01/02/14 NEG PRESS WOUND TX </=50 CM completed 01/09/14 580395"OSTOMY SKIN BARRIER, PECTIN-BASED, PASTE, PER OUNCE" completed 521803"ADHESIVE BORDER, EACH DRESSING" completed 01/09/14 X-RAY EXAM OF ABDOMEN completed 01/04/14 X-RAY EXAM OF ABDOMEN completed 01/08/14 NEG PRESS WOUND TX </=50 CM completed 01/23/14 474997"ADHESIVE BORDER, EACH DRESSING" completed 01/23/14 NEG PRESS WOUND TX </=50 CM completed 01/30/14 766771"ADHESIVE BORDER, EACH DRESSING" completed 01/30/14 X-RAY EXAM OF ABDOMEN completed 01/29/14 NEG PRESS WOUND TX </=50 CM completed 02/06/14 [id number]"ADHESIVE BORDER, EACH DRESSING" completed 02/06/14 X-RAY EXAM OF ABDOMEN completed 02/05/14 X-RAY UPPER GI&SMALL INTEST completed 02/08/14 Encounters Encounter Location Date/Time Registered [facility] 02/20/14 1:59pm Discharged [facility] 02/19/14 9:50am Registered [facility] 02/13/14 1:57pm Registered [facility] 02/08/14 12:26pm Registered [facility] 02/07/14 9:58am Registered [facility] 02/06/14 1:33pm Registered [facility] 02/05/14 10:21am Registered [facility] 01/30/14 1:30pm Registered [facility] 01/29/14 11:20am Registered [facility] 01/23/14 1:57pm Discharged Inpatient [facility] 01/12/14 9:38am Registered Clinic [facility] 01/09/14 1:58pm Registered Clinic [facility] 01/08/14 11:07am Registered Clinic [facility] 01/04/14 3:11pm Registered Clinic [facility] 01/02/14 1:23pm Discharged Inpatient [facility] 12/25/13 9:56pm Registered Clinic [facility] 12/12/13 1:27pm Registered Clinic [facility] 12/08/13 12:20pm Registered Clinic [facility] 12/08/13 11:48am Registered Clinic [facility] 12/06/13 10:08am Registered Clinic [facility] 12/04/13 11:20am Registered Clinic [facility] 12/01/13 9:33am Registered Clinic [facility] 11/28/13 1:25pm
--- OUTSIDE RECORDS SUMMARY | 2016-05-16 12:02 | XMS REPORT | Continuity of Care Document ---
Author Author [facility]IVE Organization [facility] Address Unknown Phone Unavailable Care Team Providers Care Farm Laborer Name Role Phone HAMILTON RECINOS DO Primary Care Physician [phone] Insurance Providers Payer Name Policy Number Subscriber Name Relationship [facility] Community Plan [id number] Luis M Aragon 19 Self Advance Directives [...] F (96.8 - 99.1) Temperature (Calculated Celsius) 37.44779 degrees C (36.0 - 37.3) Temperature Source [...] % L - Factor VII performed at [facility], [address] [facility], [place] [address]Dyaffvs Director Marlena Cottrell MD Conjugated Bilirubin July [...] 329 mg/dL H - Haptoglobin performed at [facility], [address] [facility], [place], [place] [address]Ewcjgat Director Marlena Cottrell MD Hematocrit November 02, [...] 25, 2013 12:02pm LAB TEST FORM REQUEST [id number] - Lactate Dehydrogenase October 25, 2013 1:45pm [...] below - 10% Calcium carbonateTest Performed by: [place] [address] Head Of Mobile: Sunny Rojas III, M.D. Stone Analysis performed at [facility], [address] [place] [address] Prick Stitcher Bob Cottrell MD Stone Source October 31, 2013 8:30am Kidney - Stone Analysis performed at [facility], , [place], [place] [address]Zvmszbg Director Bob Cottrell, Corrected result; previously reported as KIDNEY on 10/31/13 at 11:56 by Bethany/KVNG --- 11/01/132128 --- STOS previously reported as: KIDNEY Stone Analysis performed at [facility], , [place] [address] Prick Stitcher Bob Cottrell, Stone Weight October 31, 2013 [...] IU/mL - Thyroglobulin Ab screen performed at [facility], [address] [place] [address] Prick Stitcher Marlena Cottrell MD Thyroid Stimulating Hormone (TSH) October 25, 2013 1:45pm < 0.02 MIU/L L 0.47-4.68 Thyroperoxidase Antibody August 15, 2013 11:10pm <3 IU/mL - Thyroperoxidase Ab (TPO) performed at [facility], [address] [place] [address] Prick Stitcher Marlena Cottrell MD Thyroxine (T4) August 15, 2013 6:50pm 10.9 ug/dL - Thyroxine (T4) performed at [facility], [address] [place] [address] Prick Stitcher Marlena Cottrell MD Total Bilirubin November 02, [...] 92 ng/dL - T3 Total performed at [facility], [address] [place], [place] [address]Medical Director Marlena Cottrell MD Troponin I October [...] % - Eosinophil Count, Urine performed at [facility], [address] [place] [address] Prick Stitcher Marlena Cottrell MD Urine Glucose (UA) October [...] 366 mOsm/kg - Osmolality, Urine performed at [facility], [address] [place] [address] Prick Stitcher Marlena Cottrell MD Urine Protein October 30, [...] Has specimen been collected/obtained? Y Urine Specific [place] October 30, 2013 1:51pm 1.015 - COMMENT [...] 5:55pm Name: LUIS M ARAGON Unit #: [id number] : 1965 Sex: F Loc / Svc: MED DOS: Signed Report #: [id number] DIAGNOSTIC IMAGING REPORT TYPE OF EXAM: RF [...] ADDON completed 08/29/13 TX/PRO/DX INJ SAME DRUG DIRECTOR OF SPECIAL EDUCATION completed 08/29/13 HYDRATE IV INFUSION ADD-ON completed 08/29/13 RPR S/N/AX/GEN/TRNK 2.5CM/< completed 10/10/13 DUSTIN MILES MD Cystoscopic insertion of ureteral stent completed 10/31/13 REYNA BENNETT MD Encounters Encounter Location Date/Time Discharged Inpatient [facility] 10/25/13 12:11pm Registered Recurring [facility] 10/25/13 9:45am Departed Emergency Room [facility] 10/18/13 11:25am Departed Emergency Room [facility] 10/10/13 8:36pm Registered Clinic [facility] 09/13/13 9:03am Registered Clinic [facility] 09/04/13 12:22pm Discharged Inpatient [facility] 08/29/13 3:12pm Departed Emergency Room [facility] 08/29/13 5:36am Registered Clinic [facility] 08/24/13 7:07am Registered Clinic [facility] 08/21/13 12:49pm Registered Clinic [facility] 08/21/13 9:03am Discharged Inpatient [facility] 08/15/13 8:45pm Registered Clinic [facility] 08/14/13 12:51pm Registered Clinic [facility] 08/14/13 10:46am Registered Clinic [facility] 08/09/13 6:49am
--- OUTSIDE RECORDS SUMMARY | 2016-05-16 12:02 | XMS REPORT | Continuity of Care Document ---
Author Author [facility]IVE Organization [facility] Address Unknown Phone Unavailable Care Team Providers Care Gas Producer Name Role Phone HAMILTON RECINOS DO Primary Care Physician [phone] Insurance Providers Payer Name Policy Number Subscriber Name Relationship [facility] Community Plan [id number] Luis M Berman 19 Self Advance Directives [...] of your legs. 3.During office hours, call [phone] 4. After hours, please call [facility] at [phone], and have the high density talc coater operator page your Surgeon IN THE EVENT [...] F (96.8 - 99.1) Temperature (Calculated Celsius) 37.12070 degrees C (36.0 - 37.3) Temperature Source [...] % L - Factor VII performed at [facility], [address] [place] [place], [place] [address]Hgcpzmm Director Marlena Cottrell MD Conjugated Bilirubin July [...] performed at [facility], [address] [place], [place] [address]Wettpkd Director Marlena Cottrell MD Hematocrit November 13, [...] 8:30am Kidney - Stone Analysis performed at [facility], , [place] [id number] Director Bob Cottrell, Corrected result; previously reported as KIDNEY on 10/31/13 at 11:56 by Bethany/KVNG --- 11/01/132128 --- STOS previously reported as: KIDNEY Stone Analysis performed at [facility], , [place] [address] Paperhanger Contractor Bob Cottrell, Stone Weight October 31, 2013 [...] ug/dL - Thyroxine (T4) performed at [facility], [address] [place] [address] Paperhanger Contractor Marlena Cottrell MD Total Bilirubin November 13, [...] % - Eosinophil Count, Urine performed at [facility], [address] [place] [address] Paperhanger Contractor Marlena Cottrell MD Urine Glucose (UA) November 07, 2013 10:22am Negative - Urine Ketones November 07, 2013 10:22am Negative - Urine Leukocyte Esterase November 07, 2013 10:22am 2+ H - Urine Nitrite November 07, 2013 10:22am Negative - Urine Osmolality October 30, 2013 1:51pm 366 mOsm/kg - Osmolality, Urine performed at [facility], [address] [place] [address] Paperhanger Contractor Marlena Cottrell MD Urine Protein November 07, 2013 10:22am Negative - Urine RBC November 07, 2013 10:22am 1-3 /HPF - Urine Random Creatinine October 30, 2013 1:51pm 19.7 MG/DL - Has specimen been collected/obtained? Y Urine Random Sodium October 30, 2013 1:51pm 166 MEQ/L H 30-90 Has specimen been collected/obtained? Y Urine Specific [place] November 07, 2013 10:22am 1.010 L - [...] below - 10% Calcium carbonateTest Performed by: [place] [address] Sane Rn: Sunny Rojas III, M.D. Stone Analysis performed at [facility], [address] [place] [address] Paperhanger Contractor Bob Cottrell MD Glucometer June 20, 2013 6:29pm 108 mg/dL N 65-110 Lab Scanned Report November 13, 2013 10:41am LAB TEST FORM REQUEST [id number] - Chlamydia trachomatis Amplified DNA October 22, [...] - Thyroperoxidase Ab (TPO) performed at [facility], [address] [place] [address] Paperhanger Contractor Marlena Cottrell MD Reactive Lymphocytes # October 30, 2013 4:44am 0.6 T/MM3 H 0-0 Thyroglobulin Antibody Screen August 15, 2013 6:50pm <3 IU/mL - Thyroglobulin Ab screen performed at [facility], [address] [place] [address] Paperhanger Contractor Marlena Cottrell MD Immature Granulocyte # (Auto) [...] performed at [facility], [address] [facility], [place], [place] [address]Ttbvexf Director Marlena Cottrell MD C. difficile Toxin [...] 3:00pm Name: LUIS M BERMAN Unit #: [id number] : 1965 Sex: F Loc / Svc: MED DOS: Signed Report #: [id number] DIAGNOSTIC IMAGING REPORT TYPE OF EXAM: RF [...] ADDON completed 08/29/13 TX/PRO/DX INJ SAME DRUG MARINE EXTENSION AGENT completed 08/29/13 HYDRATE IV INFUSION ADD-ON completed 08/29/13 RPR S/N/AX/GEN/TRNK 2.5CM/< completed 10/10/13 DUSTIN MILES MD BLOOD TRANSFUSION SERVICE completed 10/25/13 HAMILTON RECINOS DO CYSTOSCOPY AND TREATMENT completed 10/25/13 REYNA PATE MD CYSTOSCOPY & URETER CATHETER completed 10/25/13 REYNA PATE MD CYSTOSCOPY AND TREATMENT completed 10/25/13 REYNA PATE MD Encounters Encounter Location Date/Time Registered [facility] 11/15/13 1:39pm Discharged Recurring [facility] 11/14/13 8:42am Registered [facility] 11/13/13 9:48am Registered [facility] 11/08/13 4:28pm Registered [facility] 11/08/13 9:01am Registered [facility] 11/07/13 10:27am Discharged Inpatient [facility] 10/25/13 12:11pm Departed Emergency Room [facility] 10/18/13 11:25am Departed Emergency Room [facility] 10/10/13 8:36pm Registered [facility] 09/13/13 9:03am Registered [facility] 09/04/13 12:22pm Discharged Inpatient [facility] 08/29/13 3:12pm Departed Emergency Room [facility] 08/29/13 5:36am Registered [facility] 08/24/13 7:07am Registered [facility] 08/21/13 12:49pm Registered [facility] 08/21/13 9:03am Discharged Inpatient [facility] 08/15/13 8:45pm
--- OUTSIDE RECORDS SUMMARY | 2016-05-16 12:02 | XMS REPORT | Continuity of Care Document ---
Author Author [facility] Organization [facility] Address Unknown Phone Unavailable Care Team Providers Care Mold Maintenance Technician Name Role Phone HAMILTON RECINOS DO Primary Care Physician [phone] Insurance Providers Payer Name Policy Number Subscriber Name Relationship [facility] Community Plan [id number] Luis M Aragon 19 Self Advance Directives [...] F (96.8 - 99.1) Temperature (Calculated Celsius) 36.55904 degrees C (36.0 - 37.3) Temperature Source [...] % L - Factor VII performed at [facility], [address] [facility] [address]Ylhbhwu Director Marlena Cottrell MD Conjugated Bilirubin July [...] 329 mg/dL H - Haptoglobin performed at [facility], [address] [facility], [place] [address]Ufkgyug Director Marlena Cottrell MD Hematocrit December 05, [...] 8:30am Kidney - Stone Analysis performed at [facility] mention, , [place] [id number] Director Bob Cottrell, Corrected result; previously reported as KIDNEY on 10/31/13 at 11:56 by V/KVNG --- 11/01/132128 --- STOS previously reported as: KIDNEY Stone Analysis performed at [facility] mention, , [place] [address] Delivery Specialist Bob Cottrell, Stone Weight October 31, 2013 [...] 10.9 ug/dL - Thyroxine (T4) performed at [facility], [address] [place] [address] Delivery Specialist Marlena Cottrell MD Total Bilirubin December 05, [...] % - Eosinophil Count, Urine performed at [facility], [address] [place] [address] Delivery Specialist Marlena Cottrell MD Urine Glucose (UA) November 07, 2013 10:22am Negative - Urine Ketones November 07, 2013 10:22am Negative - Urine Leukocyte Esterase November 07, 2013 10:22am 2+ H - Urine Nitrite November 07, 2013 10:22am Negative - Urine Osmolality October 30, 2013 1:51pm 366 mOsm/kg - Osmolality, Urine performed at [facility], [address] [place] [address] Delivery Specialist Marlena Cottrell MD Urine Protein November 07, 2013 10:22am Negative - Urine RBC November 07, 2013 10:22am 1-3 /HPF - Urine Random Creatinine October 30, 2013 1:51pm 19.7 MG/DL - Has specimen been collected/obtained? Y Urine Random Sodium October 30, 2013 1:51pm 166 MEQ/L H 30-90 Has specimen been collected/obtained? Y Urine Specific [place] November 07, 2013 10:22am 1.010 L - [...] below - 10% Calcium carbonateTest Performed by: [place] [address] Rn Cvor: Sunny Rojas III, M.D. Stone Analysis performed at [facility], [address] [place] [address] Delivery Specialist Bob Cottrell MD Glucometer June 20, 2013 6:29pm 108 mg/dL N 65-110 Lab Scanned Report December 04, 2013 7:15pm LAB TEST FORM REQUEST [id number] - Chlamydia trachomatis Amplified DNA October 22, [...] IU/mL - Thyroperoxidase Ab (TPO) performed at [facility], [address] [place] [address] Delivery Specialist Marlena Cottrell MD Reactive Lymphocytes # October 30, 2013 4:44am 0.6 T/MM3 H 0-0 Thyroglobulin Antibody Screen August 15, 2013 6:50pm <3 IU/mL - Thyroglobulin Ab screen performed at [facility], [facility] [place] [address] Delivery Specialist Marlena Cottrell MD Immature Granulocyte # [...] 92 ng/dL - T3 Total performed at [facility], [address] [facility], [place] [address]Iydwqag Director Marlena Cottrell MD C. difficile Toxin [...] 5:55pm Name: LUIS M ARAGON Unit #: [id number] : 1965 Sex: F Loc / Svc: TNU DOS: 12/05/13 Signed Report #: [id number] DIAGNOSTIC IMAGING REPORT TYPE OF EXAM: RF [...] BENNETT MD Encounters Encounter Location Date/Time Registered [facility] 12/04/13 11:20am Registered [facility] 12/04/13 9:16am Registered Clinic [facility] 12/01/13 9:33am Registered Clinic [facility] 11/28/13 1:25pm Registered [facility] 11/23/13 8:34am Registered [facility] 11/22/13 12:39pm Registered Clinic [facility] 11/22/13 12:24pm Registered [facility] 11/17/13 10:26am Registered [facility] 11/15/13 1:39pm Discharged Recurring [facility] 11/14/13 8:42am Registered [facility] 11/08/13 4:28pm Registered [facility] 11/08/13 9:01am Registered [facility] 11/07/13 10:27am Discharged Inpatient [facility] 10/25/13 12:11pm Departed Emergency Room [facility] 10/18/13 11:25am Departed Emergency Room [facility] 10/10/13 8:36pm Registered [facility] 09/13/13 9:03am
--- OUTSIDE RECORDS SUMMARY | 2016-05-16 12:03 | XMS REPORT | Continuity of Care Document ---
Author Author [facility] Organization [facility] Address Unknown Phone Unavailable Support Name Relationship Address Phone LUIS MANUEL HOUGH MD Caregiver [address] [place] [address] [place] [phone] FELECIA GALLAGHER MD Caregiver [facility] [address] [place] [phone] REYES PEPE MD Caregiver [address] [place] [address] [place] [phone] MARKYCOR[address]DAVE Next Of Kin [address] [place] [id number] CP Insurance Providers Payer Name Policy Number Subscriber Name Relationship [facility] Community Plan [id number] Yvette Aragon 19 Self Advance Directives Directive [...] Disposition 06 HOME HEALTH SERVICE Instructions/Education Provided [facility] Discharge Instructions Colon Cancer DI for [...] F (96.8 - 99.1) Temperature (Calculated Celsius) 36.71212 degrees C (36.0 - 37.3) Pulse Rate [...] % L - Factor VII performed at [facility], [address] [place], [place] [address]Nkekmmf Director Marlena Cottrell MD Conjugated Bilirubin July [...] 329 mg/dL H - Haptoglobin performed at [facility], [address] [place], [place] [address]Ltoxrkl Director Marlena Cottrell MD Hematocrit April 20, [...] 06, 2014 6:54pm LAB TEST FORM REQUEST [id number] - Lactate Dehydrogenase April 06, 2014 10:40am [...] 20, 2014 4:45am 9.4 % H 0-9.0 FG-Nui-O-Type Natriuretic Peptide January 13, 2014 4:22am 160 [...] below - 10% Calcium carbonateTest Performed by: [place] [address] Drop Hammer Set Up Operator: Lonny Franz M.D. Stone Analysis performed at [facility], [address] [place] [address] Electronic Publications Specialist Bob Cottrell MD Stone Source December 19, [...] at [facility], [address] [place] [address] Electronic Publications Specialist Marlena Cottrell MD Thyroid Stimulating Hormone (TSH) April 19, 2014 5:11am 127.00 MIU/L H 0.47-4.68 COMMENT Add on - blood already in lab Thyroperoxidase Antibody August 15, 2013 11:10pm <3 IU/mL - Thyroperoxidase Ab (TPO) performed at [facility] Reference [facility], [address] [place] [address] Electronic Publications Specialist Marlena Cottrell MD Thyroxine (T4) August 15, 2013 6:50pm 10.9 ug/dL - Thyroxine (T4) performed at [facility], [address] [place] [address] Electronic Publications Specialist Marlena Cottrell MD Total Bilirubin April 20, [...] 92 ng/dL - T3 Total performed at [facility], [address] [place], [place] [address]Medical Director Marlena Cottrell MD Troponin I January [...] at [facility], [address] [place] [address] Electronic Publications Specialist Marlena Cottrell MD Urine Glucose (UA) April [...] 366 mOsm/kg - Osmolality, Urine performed at [facility], [address] [place], [place] Electronic Publications Specialist Marlena Cottrell MD Urine Protein April 14, [...] Has specimen been collected/obtained? Y Urine Specific [place] April 14, 2014 1:30pm 1.010 L - [...] 2011 5:55pm Name: YVETTE ARAGON Unit #: [id number] : 1965 Sex: F Loc / Sv: SRG DOS: 04/14/14 Signed Report #: [id number] DIAGNOSTIC IMAGING REPORT TYPE OF EXAM: SMALL BOWEL SERIES Dictated By: NORM PALMER MD Indication: ITS.REASON: Small bowel obstruction SMALL BOWEL SERIES: Comparison: Small bowel series dated February 27, 2014 Findings: Campaign Fundraiser radiograph of the abdomen was obtained demonstrating [...] PRESS WOUND TX </=50 CM completed 01/23/14 337508"ADHESIVE BORDER, EACH DRESSING" completed 01/23/14 NEG PRESS WOUND TX </=50 CM completed 01/30/14 [id number]"ADHESIVE BORDER, EACH DRESSING" completed 01/30/14 X-RAY EXAM OF ABDOMEN completed 01/29/14 NEG PRESS WOUND TX </=50 CM completed 02/06/14 [id number]"ADHESIVE BORDER, EACH DRESSING" completed 02/06/14 X-RAY EXAM OF ABDOMEN completed 02/05/14 RMVL DEVITAL TIS 20 CM/< completed 02/13/14 NEG PRESS WOUND TX </=50 CM completed 02/13/14 [id number]"ADHESIVE BORDER, EACH DRESSING" completed 02/13/14 X-RAY UPPER GI&SMALL INTEST completed 02/08/14 NEG PRESS WOUND TX </=50 CM completed 02/20/14 [id number]"ADHESIVE BORDER, EACH DRESSING" completed 02/20/14 NEG PRESS WOUND TX </=50 CM completed 02/23/14 [id number]"ADHESIVE BORDER, EACH DRESSING" completed 02/23/14 CT ABD & PELVIS W/O CONTRAST completed 02/27/14 X-RAY EXAM OF SMALL BOWEL completed 02/27/14 E&M LEVEL - FACILITY completed 03/06/14 CT THORAX W/DYE completed 03/08/14 CT ABD & PELV W/CONTRAST completed 03/08/14 [id number]"INFUSION, NORMAL SALINE SOLUTION , 250 CC" completed 03/08/14 [id number]"LOW OSMOLAR CONTRAST MATERIAL, 300-399 MG/ML IODINE C completed E&M LEVEL - FACILITY completed 03/21/14 PET IMAGE W/CT FULL BODY completed 03/14/14 [id number]"FLUORODEOXYGLUCOSE F-18 FDG, DIAGNOSTIC, PER STUDY DO completed RMVL DEVITAL TIS 20 CM/< completed 03/27/14 E&M LEVEL - FACILITY completed 04/03/14 US EXAM ABDO BACK WALL COMP completed 04/05/14 EXTREMITY STUDY completed 04/05/14 X-RAY EXAM OF ABDOMEN completed 04/06/14 Encounters Encounter Location Date/Time Discharged Inpatient [facility] 04/14/14 3:53pm Registered Clinic [facility] 04/06/14 12:16pm Registered [facility] 04/06/14 10:44am Registered [facility] 04/05/14 2:38pm Registered Clinic [facility] 04/05/14 11:53am Registered Clinic [facility] 04/03/14 1:49pm Registered Clinic [facility] 03/27/14 1:36pm Registered Clinic [facility] 03/21/14 1:39pm Registered Clinic [facility] 03/14/14 8:05am Registered Clinic [facility] 03/08/14 11:36am Registered Clinic [facility] 03/06/14 1:39pm Registered Clinic [facility] 02/27/14 8:22am Registered Clinic [facility] 02/23/14 9:06am Registered Clinic [facility] 02/20/14 1:59pm Registered Clinic [facility] 02/13/14 1:57pm Registered Clinic [facility] 02/08/14 12:26pm Registered Clinic [facility] 02/07/14 9:58am Registered Clinic [facility] 02/06/14 1:33pm Registered Clinic [facility] 02/05/14 10:21am Registered Clinic [facility] 01/30/14 1:30pm Registered Clinic [facility] 01/29/14 11:20am Registered Clinic [facility] 01/23/14 1:57pm Discharged [facility] 03/10/13 8:27am Recent Diagnosis UTI Hyperthyroidism History of malignant neoplasm of colorectal region Urinary tract infection Small bowel obstruction Hypothyroidism Protein-calorie malnutrition, mild Anemia Hx of Clostridium difficile infection HTN (hypertension) Anxiety and depression GERD (gastroesophageal reflux disease) Hypomagnesemia Hypokalemia Abdominal pain
[2016-05-16 12:36] LABS: BASOPHILS % (AUTO) 0.2 % (0-2); EOSINOPHILS % (AUTO) 0.2 % (0-4); HCT - HEMATOCRIT 28.9 % (36-46); HGB - HEMOGLOBIN 9.7 GM/DL (12-16); IMMATURE GRANULOCYTE # (AUTO) 0.02 T/MM3 (0.00-0.03); IMMATURE GRANULOCYTE % (AUTO) 0.5 % (0.0-0.5); LYMPHOCYTES # (AUTO) 0.7 T/MM3 (1-4.8); LYMPHOCYTES % (AUTO) 17.6 % (23-45); MEAN CORPUSCULAR HGB 28.9 UUG (26-34); MEAN CORPUSCULAR HGB CONC(MCHC 33.6 GM/DL (31-37); MEAN PLATELET VOLUME 9.5 UM3 (9.4-12.4); MONOCYTES # (AUTO) 0.3 T/MM3 (0-0.8); NEUTROPHILS #(AUTO)-ABSOLUTE 3.2 T/MM3 (1.8-7.7); NEUTROPHILS % (AUTO) 75.5 % (33-66); RED BLOOD COUNT 3.36 M/MM3 (4.00-5.20); WBC - WHITE BLOOD COUNT 4.2 T/MM3 (4.5-11.0)
[2016-05-16 12:44] LABS: ALBUMIN 2.1 G/DL (3.5-5.0); ALBUMIN/GLOBULIN RATIO 0.6 RATIO (1.1-2.2); ALKALINE PHOSPHATASE 192 U/L (38-126); ALT (SGPT) 39 U/L (9-52); ANION GAP 9 MEQ/L (5-15); AST (SGOT) 19 U/L (14-36); BUN/CREATININE RATIO 9 RATIO (6-26); CALCIUM 7.4 MG/DL (8.4-10.2); CHLORIDE 115 MEQ/L (98-107); CO2 - CARBON DIOXIDE 20 MEQ/L (22-30); CREATININE 1.5 MG/DL (0.7-1.2); GLOMERULAR FILTRATION RATE 37; GLUCOSE 113 MG/DL (65-110); LIPASE 31 U/L (23-300); SODIUM 144 MEQ/L (134-144); TOTAL PROTEIN 5.5 G/DL (6.3-8.2)
[2016-05-16 13:12] LABS: POTASSIUM 2.4 MEQ/L (3.6-5)
[2016-05-16 13:17] LABS: BLOOD, URINE 2+ (NEGATIVE); COLOR,URINE YELLOW (YELLOW); LEUKOCYTE ESTERASE ,URINE 2+ (NEGATIVE); NITRITE,URINE POSITIVE (NEGATIVE)
[2016-05-16 13:26] LABS: WBC,URINE 50-200 /HPF (0-5)
[2016-05-16 13:29] LABS: BACTERIA,URINE 3+ (NEGATIVE); SQUAMOUS EPITHELIAL CELL,UR 0-5; YEAST,URINE TRACE (NEGATIVE)
[2016-05-16] MEDS: POTASSIUM CHLORIDE 10 MEQ in WATER FOR INJECTION 100 ML IV SCH ×4 (14:31→19:15)
--- OUTSIDE RECORDS SUMMARY | 2016-05-16 15:00 | XMS REPORT | Continuity of Care Document ---
Author Author [facility] Organization [facility] Address Unknown Phone Unavailable Care Team Providers Care Landscape Contractor Name Role Phone HAMILTON RECINOS DO Primary Care Physician [phone] Insurance Providers Payer Name Policy Number Subscriber Name Relationship [facility] Community Plan [id number] Luis M Aragon 19 Self Advance Directives [...] UP APPOINTMENT WITH DR. RECINOS ON WEDNESDAY [phone] MAR IN 2 [...] F (96.8 - 99.1) Temperature (Calculated Celsius) 36.52019 degrees C (36.0 - 37.3) Temperature Source [...] 296 mg/dL H - Haptoglobin performed at [facility], [address] [facility] [place] [address]Zcgnwge Director Marlena Cottrell MD Hematocrit August 23, [...] 10.9 ug/dL - Thyroxine (T4) performed at [facility], [facility] [place] [place] [address] Manipulator Operator Marlena Cottrell MD Total Bilirubin August 23, [...] 114 mOsm/kg - Osmolality, Urine performed at [facility], [address] [place] [address] Manipulator Operator Marlena Cottrell MD Urine Protein August 21, 2013 12:52pm 2+ H - Urine RBC August 21, 2013 12:52pm 50-200 /HPF H - Urine Random Creatinine August 15, 2013 8:00pm 20.9 MG/DL - Has specimen been collected/obtained? Y Urine Random Sodium August 15, 2013 8:00pm 18 MEQ/L L 30-90 Has specimen been collected/obtained? Y Urine Specific [place] August 21, 2013 12:52pm 1.025 - Urine [...] 23, 2013 10:13am LAB TEST FORM REQUEST [id number] - Chlamydia trachomatis Amplified DNA October 22, [...] IU/mL - Thyroperoxidase Ab (TPO) performed at [facility], [address] [place] [address] Manipulator Operator Marlena Cottrell MD Reactive Lymphocytes # April 21, 2013 9:00am 0.2 T/MM3 H 0-0 Thyroglobulin Antibody Screen August 15, 2013 6:50pm <3 IU/mL - Thyroglobulin Ab screen performed at [facility], [address] [place] [address] Manipulator Operator Marlena Cottrell MD Immature Granulocyte # (Auto) [...] 92 ng/dL - T3 Total performed at [facility], [address] [place], [place] [address]Medical Director Marlena Cottrell MD C. difficile Toxin [...] Encounter Location Date/Time Registered [facility] 08/23/13 8:41am Registered Clinic [facility] 08/21/13 12:49pm Registered Clinic [facility] 08/21/13 9:03am Discharged Inpatient [facility] 08/15/13 8:45pm Registered Clinic [facility] 08/14/13 12:51pm Registered Clinic [facility] 08/14/13 10:46am Registered Clinic [facility] 08/09/13 6:49am Registered Clinic [facility] 07/31/13 9:09am Registered Clinic [facility] 07/26/13 10:13am Registered Clinic [facility] 07/19/13 10:31am Registered Clinic [facility] 07/18/13 11:35am Registered Clinic [facility] 07/18/13 9:09am Discharged Recurring [facility] 07/07/13 10:00am Registered Clinic [facility] 06/26/13 8:37am Discharged Inpatient [facility] 06/19/13 10:10am Registered Clinic [facility] 06/14/13 8:34am Registered Clinic [facility] 06/12/13 10:07am Registered Clinic [facility] 06/12/13 10:03am Registered Clinic [facility] 06/02/13 1:25pm Registered Clinic [facility] 05/26/13 6:19am
--- OUTSIDE RECORDS SUMMARY | 2016-05-16 15:01 | XMS REPORT | Continuity of Care Document ---
Author Author [facility] Organization [facility] Address Unknown Phone Unavailable Care Team Providers Care Cyber Reverse Engineer Name Role Phone HAMILTON GUZMÁN DO Primary Care Physician [phone] Insurance Providers Payer Name Policy Number Subscriber Name Relationship [facility] Community Plan [id number] Luis M Aragon 19 Self Advance Directives [...] at 9:30. Make appointment with Lab at [facility] for CBC with diff, CMP and [...] F (96.8 - 99.1) Temperature (Calculated Celsius) 36.82135 degrees C (36.0 - 37.3) Temperature Source [...] % L - Factor VII performed at [facility], [address] [place], [place] [address]Psuelqx Director Marlena Cottrell MD Conjugated Bilirubin July [...] H - Haptoglobin performed at [facility], [address], [place], [place] [address]Dtuwqri Director Marlena Cottrell MD Hematocrit December 29, [...] 25, 2013 2:12pm LAB TEST FORM REQUEST [id number] - Lactate Dehydrogenase December 25, 2013 9:30am [...] below - 10% Calcium carbonateTest Performed by: [address] [address] Food Service Worker: Lonny Franz M.D. Stone Analysis performed at [facility], [address] [place] [address] Paint Maker Bob Cottrell MD Stone Source December 19, [...] Thyroglobulin Ab screen performed at [facility], [address] [place] [address] Paint Maker Marlena Cottrell MD Thyroid Stimulating Hormone (TSH) December 26, 2013 5:57am 2.05 MIU/L DN 0.47-4.68 Thyroperoxidase Antibody August 15, 2013 11:10pm <3 IU/mL - Thyroperoxidase Ab (TPO) performed at [facility], [address] [place] [address] Paint Maker Marlena Cottrell MD Thyroxine (T4) August 15, 2013 6:50pm 10.9 ug/dL - Thyroxine (T4) performed at [facility], [address] [place] [address] Paint Maker Marlena Cottrell MD Total Bilirubin December 29, [...] - T3 Total performed at [facility], [address] [place], [place] [address]Medical Director Marlena Cottrell MD Troponin I October [...] Eosinophil Count, Urine performed at [facility], [facility] [place] [address] Paint Maker Marlena Cottrell MD Urine Glucose (UA) December [...] - Osmolality, Urine performed at [facility], [address] [place] [address] Paint Maker Marlena Cottrell MD Urine Protein December 25, 2013 6:25pm Negative - Has specimen been collected/obtained? Y Urine RBC December 25, 2013 6:25pm 1-3 /HPF - Has specimen been collected/obtained? Y Urine Random Creatinine October 30, 2013 1:51pm 19.7 MG/DL - Has specimen been collected/obtained? Y Urine Random Sodium October 30, 2013 1:51pm 166 MEQ/L H 30-90 Has specimen been collected/obtained? Y Urine Specific [place] December 25, 2013 6:25pm 1.015 - Has [...] 5:55pm Name: LUIS M ARAGON Unit #: [id number] : 1965 Sex: F Loc / Svc: MED DOS: 12/25/13 Signed Report #: [id number] DIAGNOSTIC IMAGING REPORT TYPE OF EXAM: CHEST [...] MD Encounters Encounter Location Date/Time Discharged Inpatient [facility] 12/25/13 9:56pm Registered [facility] 12/25/13 9:39am Registered [facility] 12/12/13 1:27pm Registered [facility] 12/08/13 12:20pm Registered [facility] 12/08/13 11:48am Registered [facility] 12/06/13 10:08am Registered [facility] 12/04/13 11:20am Registered [facility] 12/01/13 9:33am Registered [facility] 11/28/13 1:25pm Registered [facility] 11/23/13 8:34am Registered [facility] 11/22/13 12:39pm Registered [facility] 11/22/13 12:24pm Registered Clinic [facility] 11/17/13 10:26am Registered Clinic [facility] 11/15/13 1:39pm Discharged Recurring [facility] 11/14/13 8:42am Registered Clinic [facility] 11/08/13 4:28pm Registered Clinic [facility] 11/08/13 9:01am Registered Clinic [facility] 11/07/13 10:27am Discharged Inpatient [facility] 10/25/13 12:11pm Departed Emergency Room [facility] 10/18/13 11:25am Departed Emergency Room [facility] 10/10/13 8:36pm Recent Diagnosis History of malignant neoplasm of colorectal region Small bowel obstruction History of malignant neoplasm of colorectal region Colon cancer Small bowel obstruction
--- OUTSIDE RECORDS SUMMARY | 2016-05-16 15:01 | XMS REPORT | Continuity of Care Document ---
Author Author [facility] Organization [facility] Address Unknown Phone Unavailable Care Team Providers Care Metal Cutter Name Role Phone HAMILTON RECNIOS DO Primary Care Physician [phone] Insurance Providers Payer Name Policy Number Subscriber Name Relationship [facility] Community Plan [id number] Luis M Berman 19 Self Advance Directives [...] F (96.8 - 99.1) Temperature (Calculated Celsius) 36.36866 degrees C (36.0 - 37.3) Temperature Source [...] % L - Factor VII performed at [facility], [address] [place], [place] [address]Vqnadjj Director Marlena Cottrell MD Conjugated Bilirubin July [...] 329 mg/dL H - Haptoglobin performed at [facility], [address] [place], [place] [address]Rttheth Director Marlena Cottrell MD Hematocrit December 19, [...] below - 10% Calcium carbonateTest Performed by: [address] [address] Poultry Pathologist: Sunny Rojas III, M.D. Stone Analysis performed at [facility], [address] [place] [address] Tape Recording Machine Operator Bob Cottrell MD Stone Source October 31, 2013 8:30am Kidney - Stone Analysis performed at [place], [place] [address]Medical Director Bob Cottrell, Corrected result; previously reported as KIDNEY on 10/31/13 at 11:56 by V/AUT --- 11/01/132128 --- STOS previously reported as: KIDNEY [place] [address] Tape Recording Machine Operator Bob Cottrell, Stone Weight October 31, [...] IU/mL - Thyroglobulin Ab screen performed at [facility], [address] [place] [address] Tape Recording Machine Operator Marlena Cottrell MD Thyroid Stimulating Hormone (TSH) October 25, 2013 1:45pm < 0.02 MIU/L L 0.47-4.68 Thyroperoxidase Antibody August 15, 2013 11:10pm <3 IU/mL - Thyroperoxidase Ab (TPO) performed at [facility], [address] [place] [address] Tape Recording Machine Operator Marlena Cottrell MD Thyroxine (T4) August 15, 2013 6:50pm 10.9 ug/dL - Thyroxine (T4) performed at [facility], [address] [place] [address] Tape Recording Machine Operator Marlena Cottrell MD Total Bilirubin December [...] 92 ng/dL - T3 Total performed at [facility], [address] [place], [place] [address]Medical Director Marlena Cottrell MD Troponin I October [...] % - Eosinophil Count, Urine performed at [facility], [address] [place] [address] Tape Recording Machine Operator Marlena Cottrell MD Urine Glucose (UA) December 08, 2013 12:02pm Negative - Urine Ketones December 08, 2013 12:02pm Negative - Urine Leukocyte Esterase December 08, 2013 12:02pm 2+ H - Urine Nitrite December 08, 2013 12:02pm Negative - Urine Osmolality October 30, 2013 1:51pm 366 mOsm/kg - Osmolality, [place] [address] Tape Recording Machine Operator Marlena Cottrell MD Urine Protein December 08, 2013 12:02pm 1+ H - Urine RBC December 08, 2013 12:02pm 30-50 /HPF H - Urine Random Creatinine October 30, 2013 1:51pm 19.7 MG/DL - Has specimen been collected/obtained? Y Urine Random Sodium October 30, 2013 1:51pm 166 MEQ/L H 30-90 Has specimen been collected/obtained? Y Urine Specific [place] December 08, 2013 12:02pm 1.020 - Urine [...] 5:55pm Name: LUIS M BERMAN Unit #: [id number] : 1965 Sex: F Loc / Svc: SCU DOS: 12/05/13 Signed Report #: [id number] DIAGNOSTIC IMAGING REPORT TYPE OF EXAM: RF [...] PATE MD Encounters Encounter Location Date/Time Registered [facility] 12/18/13 9:57am Registered [facility] 12/12/13 1:27pm Registered [facility] 12/08/13 12:20pm Registered [facility] 12/08/13 11:48am Registered [facility] 12/06/13 10:08am Registered [facility] 12/04/13 11:20am Registered [facility] 12/01/13 9:33am Registered [facility] 11/28/13 1:25pm Registered [facility] 11/23/13 8:34am Registered [facility] 11/22/13 12:39pm Registered [facility] 11/22/13 12:24pm Registered Clinic [facility] 11/17/13 10:26am Registered Clinic [facility] 11/15/13 1:39pm Discharged Recurring [facility] 11/14/13 8:42am Registered Clinic [facility] 11/08/13 4:28pm Registered Clinic [facility] 11/08/13 9:01am Registered Clinic [facility] 11/07/13 10:27am Discharged Inpatient [facility] 10/25/13 12:11pm Departed Emergency Room [facility] 10/18/13 11:25am Departed Emergency Room [facility] 10/10/13 8:36pm
--- OUTSIDE RECORDS SUMMARY | 2016-05-16 15:01 | XMS REPORT | Continuity of Care Document ---
Author Author [facility] Organization [facility] Address Unknown Phone Unavailable Care Team Providers Care Application Programmer Analyst Name Role Phone HAMILTON RECINOS DO Primary Care Physician [phone] Insurance Providers Payer Name Policy Number Subscriber Name Relationship [facility] Community Plan [id number] Luis M Berman 19 Self Advance Directives [...] with diff, CMP, Mg, Phos done at [facility] before appointment that day. Follow up with [...] F (96.8 - 99.1) Temperature (Calculated Celsius) 36.01157 degrees C (36.0 - 37.3) Temperature Source [...] % L - Factor VII performed at [facility], [address] [facility], [place], [place] [address]Mejzxap Director Marlena Cottrell MD Conjugated Bilirubin July [...] 329 mg/dL H - Haptoglobin performed at [facility], [address] [place], [place] [address]Lbomjuh Director Marlena Cottrell MD Hematocrit January 15, [...] Thyroxine (T4) performed at [facility], [address] [place] [place] [address] Eyelet Row Marker Marlena Cottrell MD Total Bilirubin January 15, [...] performed at [facility], [address] [place] [address] Eyelet Row Marker Marlena Cottrell MD Urine Glucose (UA) January [...] 366 mOsm/kg - Osmolality, Urine performed at [facility], [address], [address] Eyelet Row Marker Marlena Cottrell MD Urine Protein January 12, [...] Has specimen been collected/obtained? Y Urine Specific [place] January 12, 2014 7:30am 1.015 - Has [...] below - 10% Calcium carbonateTest Performed by: [place] [address] Finance Insurance Manager: Lonny Franz M.D. Stone Analysis performed at [facility], [address] [place] [address] Eyelet Row Marker Bob Cottrell MD Glucometer June 20, 2013 6:29pm 108 mg/dL N 65-110 Lab Scanned Report January 11, 2014 11:34am LAB TEST FORM REQUEST [id number] - Chlamydia trachomatis Amplified DNA October 22, [...] performed at [facility], [address] [place] [address] Eyelet Row Marker Marlena Cottrell MD Reactive Lymphocytes # October 30, 2013 4:44am 0.6 T/MM3 H 0-0 Thyroglobulin Antibody Screen August 15, 2013 6:50pm <3 IU/mL - Thyroglobulin Ab screen performed at [facility], [address] [place] [address] Eyelet Row Marker Marlena Cottrell MD Immature Granulocyte # (Auto) [...] 27, 2012 4:28pm 0.9 MMOL/L N 0.5-0.9 PK-Vpi-D-Type Natriuretic Peptide January 13, 2014 4:22am 160 PG/ML N 0 -175 Rule in cut points: <50 years old=450; 50-75 years old=900; >75 years old=1800; When utilizing ProBNP rule-in cut points, adjustment for impaired renal function is typically not required. Triiodothyonine (T3) (JOSE MIGUEL) August 15, 2013 6:50pm 92 ng/dL - T3 Total performed at [facility], [address] [facility], [place] [address]Wgenbkp Director Marlena Cottrell MD C. difficile Toxin [...] 5:55pm Name: LUIS M BERMAN Unit #: [id number] : 1965 Sex: F Loc / Svc: MED DOS: 01/12/14 Signed Report #: [id number] DIAGNOSTIC IMAGING REPORT TYPE OF EXAM: CHEST, [...] PRESS WOUND TX </=50 CM completed 01/02/14 [id number]"ADHESIVE BORDER, EACH DRESSING" completed 01/02/14 X-RAY EXAM OF ABDOMEN completed 01/04/14 Encounters Encounter Location Date/Time Discharged Inpatient [facility] 01/12/14 9:38am Registered [facility] 01/11/14 11:22am Registered Clinic [facility] 01/09/14 1:58pm Registered Clinic [facility] 01/08/14 11:07am Registered Clinic [facility] 01/04/14 3:11pm Registered Clinic [facility] 01/02/14 1:23pm Discharged Inpatient [facility] 12/25/13 9:56pm Registered Clinic [facility] 12/12/13 1:27pm Registered Clinic [facility] 12/08/13 12:20pm Registered Clinic [facility] 12/08/13 11:48am Registered Clinic [facility] 12/06/13 10:08am Registered Clinic [facility] 12/04/13 11:20am Registered Clinic [facility] 12/01/13 9:33am Registered Clinic [facility] 11/28/13 1:25pm Registered Clinic [facility] 11/23/13 8:34am Registered Clinic [facility] 11/22/13 12:39pm Registered Clinic [facility] 11/22/13 12:24pm Registered Clinic [facility] 11/17/13 10:26am Registered Clinic [facility] 11/15/13 1:39pm Discharged Recurring [facility] 11/14/13 8:42am Registered Clinic [facility] 11/08/13 4:28pm Registered Clinic [facility] 11/08/13 9:01am Registered Clinic [facility] 11/07/13 10:27am Discharged Inpatient [facility] 10/25/13 12:11pm Departed Emergency Room [facility] 10/18/13 11:25am Recent Diagnosis History of malignant neoplasm of colorectal region Small bowel obstruction
--- OUTSIDE RECORDS SUMMARY | 2016-05-16 15:02 | XMS REPORT | Continuity of Care Document ---
Author Author [facility] Organization [facility] Address Unknown Phone Unavailable Care Team Providers Care Plating Machine Operator Name Role Phone HAMILTON RECINOS DO Primary Care Physician [phone] Insurance Providers Payer Name Policy Number Subscriber Name Relationship [facility] Community Plan [id number] Luis M Aragon 19 Self Advance Directives [...] IN 1 WEEK. CBC, CMP, MG AT [facility] BEFORE APPOINTMENT WITH DR RECINOS.-- DR. RECINOS APPOINTMENT ON 09/08/13 AT 10:15 AM--PHONE # [phone] *FOLLOW UP WITH DR NAYLOR--- APPOINTMENT WITH DR. SASCHA NAYLOR, SCHEDULED ON 09/08/13 *FOLLOW UP WITH DR MAR APPOINTMENT MADE ON 10/03/13 AT 2:30PM [phone]. TSH AND FREE T4 LAB DRAWN THAT DAY AT [facility] AND SENT TO DR MAR. Patient Instructions: RETURN TO CARE IMMEDIATELY IF ABDOMINAL PAIN, CONSTIPATION SHOULD WORSEN. General Information: *CBC, CMP, MG IN ONE WEEK AT [facility] BEFORE APPOINTMENT WITH DR RECINOS. *PER DR [...] of your legs. 3.During office hours, call [phone] 4. After hours, please call [facility] at [phone], and have the cylinder machine operator pulp drier page your Surgeon IN THE EVENT OF AN EMERGENCY, seek medical care at the nearest Emergency Room General Information: Follow up with cardiology in 2-4 weeks. call insurance coordinator of choice dr nation or dr huitron Condition at time of discharge: Good Plan of Care Discharge Date 09/01/13 2:41pm Disposition 02 TO [facility] ACUTE CARE Condition at Discharge Improved Instructions/Education [...] 296 mg/dL H - Haptoglobin performed at [facility], [address], [place] [address]Vpbquid Director Marlena Cottrell MD Hematocrit October 18, [...] ug/dL - Thyroxine (T4) performed at [facility], [address] [place] [address] Lens Edge Grinder Machine Marlena Cottrell MD Total Bilirubin October 18, [...] 114 mOsm/kg - Osmolality, Urine performed at [facility], [address] [facility], [place] Lens Edge Grinder Machine Marlena Cottrell MD Urine Protein October 18, [...] Has specimen been collected/obtained? Y Urine Specific [place] October 18, 2013 1:15pm 1.010 L - [...] 09, 2013 10:39am LAB TEST FORM REQUEST [id number] - Chlamydia trachomatis Amplified DNA October 22, [...] - Thyroperoxidase Ab (TPO) performed at [facility], [address] [place] [address] Lens Edge Grinder Machine Marlena Cottrell MD Reactive Lymphocytes # April 21, 2013 9:00am 0.2 T/MM3 H 0-0 Thyroglobulin Antibody Screen August 15, 2013 6:50pm <3 IU/mL - Thyroglobulin Ab screen performed at [facility], [address] [place] [address] Lens Edge Grinder Machine Marlena Cottrell MD Immature Granulocyte # (Auto) [...] 92 ng/dL - T3 Total performed at [facility], [address] [place], [place] [address]Ygxzlun Director Marlena Cottrell MD C. difficile Toxin [...] 10:00am Name: LUIS M ARAGON Unit #: [id number] : 1965 Sex: F Loc / Svc: WALE DOS: 09/04/13 Signed Report #: [id number] DIAGNOSTIC IMAGING REPORT TYPE OF EXAM: CT [...] ADDON completed 08/29/13 TX/PRO/DX INJ SAME DRUG DAYCARE MANAGER completed 08/29/13 HYDRATE IV INFUSION ADD-ON completed 08/29/13 RPR S/N/AX/GEN/TRNK 2.5CM/< completed 10/10/13 DUSTIN MILES MD Encounters Encounter Location Date/Time Departed Emergency Room [facility] 10/18/13 11:25am Departed Emergency Room [facility] 10/10/13 8:36pm Registered [facility] 10/09/13 8:37am Registered Clinic [facility] 09/13/13 9:03am Registered [facility] 09/04/13 12:22pm Discharged Inpatient [facility] 08/29/13 3:12pm Departed Emergency Room [facility] 08/29/13 5:36am Registered [facility] 08/24/13 7:07am Registered [facility] 08/21/13 12:49pm Registered [facility] 08/21/13 9:03am Discharged Inpatient [facility] 08/15/13 8:45pm Registered Clinic [facility] 08/14/13 12:51pm Registered [facility] 08/14/13 10:46am Registered [facility] 08/09/13 6:49am Registered [facility] 07/31/13 9:09am Registered Clinic [facility] 07/26/13 10:13am Recent Diagnosis
--- OUTSIDE RECORDS SUMMARY | 2016-05-16 15:03 | XMS REPORT | Continuity of Care Document ---
Author Author [facility] Organization [facility] Address Unknown Phone Unavailable Care Team Providers Care Outsole Cutter Machine Name Role Phone HAMILTON RECINOS DO Primary Care Physician [phone] Insurance Providers Payer Name Policy Number Subscriber Name Relationship [facility] Community Plan [id number] Lius M Aragon 19 Self Advance Directives Directive [...] IN 1 WEEK. CBC, CMP, MG AT [facility] BEFORE APPOINTMENT WITH DR RECINOS.-- DR. RECINOS APPOINTMENT ON 09/08/13 AT 10:15 AM--PHONE # [phone] *FOLLOW UP WITH DR NAYLOR--- APPOINTMENT WITH DR. ANNI NAYLOR, SCHEDULED ON 09/08/13 *FOLLOW UP WITH DR MAR APPOINTMENT MADE ON 10/03/13 AT 2:30PM [phone]. TSH AND FREE T4 LAB DRAWN THAT DAY AT [facility] AND SENT TO DR MAR. Patient Instructions: RETURN TO CARE IMMEDIATELY IF ABDOMINAL PAIN, CONSTIPATION SHOULD WORSEN. General Information: *CBC, CMP, MG IN ONE WEEK AT [facility] BEFORE APPOINTMENT WITH DR RECINOS. *PER DR [...] of your legs. 3.During office hours, call [phone] 4. After hours, please call [facility] at [phone], and have the tricot knitting machine operator page your Surgeon IN THE [...] F (96.8 - 99.1) Temperature (Calculated Celsius) 36.71530 degrees C (36.0 - 37.3) Temperature Source [...] 296 mg/dL H - Haptoglobin performed at [facility], [address] [facility], [place] [address]Nzdzdkz Director Marlena Cottrell MD Hematocrit September 01, [...] 28, 2013 6:57pm LAB TEST FORM REQUEST [id number] - Lactate Dehydrogenase August 28, 2013 9:01am [...] IU/mL - Thyroglobulin Ab screen performed at [facility], [address] [place] [address] Material Damage Adjuster Marlena Cottrell MD Thyroid Stimulating Hormone (TSH) August 15, 2013 6:50pm < 0.02 MIU/L L 0.47-4.68 COMMENT DO ON BLOOD DRAWN TODAYCOMMENT * & TSH RECEPTOR ANTIBODIES * Thyroperoxidase Antibody August 15, 2013 11:10pm <3 IU/mL - Thyroperoxidase Ab (TPO) performed at [facility], [address] [place] [address] Material Damage Adjuster Marlena Cottrell MD Thyroxine (T4) August 15, 2013 6:50pm 10.9 ug/dL - Thyroxine (T4) performed at [facility], [address] [place] [address] Material Damage Adjuster Marlena Cottrell MD Total Bilirubin September 01, [...] T3 Total performed at [facility], [address] [place] [address]Owujbes Director Marlena Cottrell MD Troponin I August [...] 114 mOsm/kg - Osmolality, Urine performed at [address] Material Damage Adjuster Marlena Cottrell MD Urine Protein August 29, [...] Has specimen been collected/obtained? Y Urine Specific [place] August 29, 2013 6:30am 1.015 - Has [...] ADDON completed 08/29/13 TX/PRO/DX INJ SAME DRUG WAX SPECIALIST completed 08/29/13 HYDRATE IV INFUSION ADD-ON completed 08/29/13 Encounters Encounter Location Date/Time Discharged Inpatient [facility] 08/29/13 3:12pm Departed Emergency Room [facility] 08/29/13 5:36am Registered [facility] 08/28/13 9:05am Registered [facility] 08/24/13 7:07am Registered [facility] 08/21/13 12:49pm Registered [facility] 08/21/13 9:03am Discharged Inpatient [facility] 08/15/13 8:45pm Registered [facility] 08/14/13 12:51pm Registered [facility] 08/14/13 10:46am Registered Clinic [facility] 08/09/13 6:49am Registered Clinic [facility] 07/31/13 9:09am Registered Clinic [facility] 07/26/13 10:13am Registered Clinic [facility] 07/19/13 10:31am Reg[address] Clinic [facility] 07/18/13 11:35am Registered Clinic [facility] 07/18/13 9:09am Discharged Recurring [facility] 07/07/13 10:00am Reg[address] Clinic [facility] 06/26/13 8:37am Discharged Inpatient [facility] 06/19/13 10:[address] Clinic [facility] 06/14/13 8:34am Registered [facility] 06/12/13 10:07am Registered [facility] 06/12/13 10:03am
--- OUTSIDE RECORDS SUMMARY | 2016-05-16 15:04 | XMS REPORT | Continuity of Care Document ---
Author Author [facility] Organization [facility] Address Unknown Phone Unavailable Care Team Providers Care Mill Beam Fitter Name Role Phone FELECIA GALLAGHER MD Primary Care Physician [phone] Insurance Providers Payer Name Policy Number Subscriber Name Relationship Medicare [id number] Yvette Aragon 19 Self [facility] Community Plan [id number] Yvette Aragon 19 Self Advance Directives Directive [...] tolerated Follow Up Appointments: Wednesday at [facility] for labs (BMP, Magnesium) 1 week - [...] or chest pain. During office hours, call [phone]. After hours, please call [facility] at [phone] and have the litharge mill operator page Dr. Abad or the covering surgeon. *In the event of an emergency, seek medical care at the nearest emergency room.* Condition at time of discharge: Good Plan of Care Discharge Date 04/20/14 5:30pm Disposition 02 TO [facility] [place] [facility] Condition at Discharge Improved Instructions/Education Provided [facility] [place] [facility] Discharge Instructions Colon [...] F (96.8 - 99.1) Temperature (Calculated Celsius) 37.72218 degrees C (36.0 - 37.3) Pulse Rate [...] % L - Factor VII performed at [facility], [address] [place], [place] [address]Djfpfyu Director Marlena Cottrell MD Conjugated Bilirubin July [...] Range: 2.6 - 18.5 Test Performed by: [place] [address] Senior Oracle Database Administrator: Franklyn Myers II, M.D., Ph.D. Erythropoietin performed at [facility], [address] [place] [address] Phlebotomy Lab Assistant MD Indigo Torres III May 07, 2014 [...] 253 mg/dL H - Haptoglobin performed at [facility], [address] [place], [place] [address]Rusedug Director Viral Atwood, DO Hematocrit June 06, 2014 1:00am 28.2 % L 36-46 Hemoglobin June 06, 2014 1:00am 8.8 GM/DL L 12-16 Hemoglobin A1c June 22, 2013 4:48am 4.9 % L 6-7 <6.0 NON-DIABETIC RANGE6.0-7.0 ADA THERAPEUTIC RANGE >7.0 ACTION SUGGESTED Homocysteine May 07, 2014 10:25am 22.5 umol/L H - Homocysteine performed at [facility], [address] [place], [place] [address]Lylgljv Director Viral Atwood DO Hypochromasia October 26, [...] to vitamin B12 deficiency. Test Performed by: [place] [address] Senior Oracle Database Administrator: Franklyn Myers II, M.D., Ph.D. Methylmalonic Acid, Serum performed at [facility], [address] [place] [address] Phlebotomy Lab Assistant Bob Cottrell MD Monocytes # (Auto) June 06, 2014 1:00am 0.8 T/MM3 N 0-0.8 Monocytes # (Manual) May 31, 2014 11:55am 0.3 T/MM3 N 0-0.8 Monocytes % (Manual) May 31, 2014 11:55am 4.0 % N 0-9.0 Monocytes (%) (Auto) June 06, 2014 1:00am 10.6 % H 0-9.0 VS-Rjp-P-Type Natriuretic Peptide January 13, 2014 4:22am 160 [...] below - 10% Calcium carbonateTest Performed by: [place] [address] Senior Oracle Database Administrator: Lonny Franz M.D. Stone Analysis performed at [facility], [address] [place] [address] Phlebotomy Lab Assistant Bob Cottrell MD Stone Source December 19, [...] IU/mL - Thyroglobulin Ab screen performed at [facility], [address] [place] [address] Phlebotomy Lab Assistant Marlena Cottrell MD Thyroid Stimulating Hormone (TSH) May 14, 2014 9:50am 1.77 MIU/L N 0.47-4.68 Thyroperoxidase Antibody August 15, 2013 11:10pm <3 IU/mL - Thyroperoxidase Ab (TPO) performed at [facility], [address] [place] [address] Phlebotomy Lab Assistant Marlena Cottrell MD Thyroxine (T4) August 15, 2013 6:50pm 10.9 ug/dL - Thyroxine (T4) performed at [facility], [address] [place] [address] Phlebotomy Lab Assistant Marlena Cottrell MD Total Bilirubin June 06, [...] 92 ng/dL - T3 Total performed at [facility], [address] [place], [place] [address]Medical Director Marlena Cottrell MD Troponin I January [...] % - Eosinophil Count, Urine performed at [facility], [address] [place] [address] Phlebotomy Lab Assistant Marlena Cottrell MD Urine Glucose (UA) June [...] 366 mOsm/kg - Osmolality, Urine performed at [facility], [address] [place] [address] Phlebotomy Lab Assistant Marlena Cottrell MD Urine Protein June 06, [...] Has specimen been collected/obtained? Y Urine Specific [place] June 06, 2014 12:15am 1.015 - Has [...] 2011 5:55pm Name: YVETTE ARAGON Unit #: [id number] : 1965 Sex: F Loc / Svc: ED DOS: 05/16/14 Signed Report #: [id number] DIAGNOSTIC IMAGING REPORT TYPE OF EXAM: CT [...] CT ABD & PELV W/CONTRAST completed 03/08/14 139532"INFUSION, NORMAL SALINE SOLUTION , 250 CC" completed 03/08/14 [id number]"LOW OSMOLAR CONTRAST MATERIAL, 300-399 MG/ML IODINE C completed E&M LEVEL - FACILITY completed 03/21/14 PET IMAGE W/CT FULL BODY completed 03/14/14 [id number]"FLUORODEOXYGLUCOSE F-18 FDG, DIAGNOSTIC, PER STUDY DO completed [...] ADDON completed 05/16/14 TX/PRO/DX INJ SAME DRUG ELECTRICAL LINESWORKER completed 05/16/14 TX/PRO/DX INJ SAME DRUG ELECTRICAL LINESWORKER completed 05/16/14 EMERGENCY DEPT VISIT completed 05/16/14 [id number] ITEM OR SERVICE completed 05/16/14 [id number]"INJECTION, KETOROLAC TROMETHAMINE, PER 15 MG" completed 05/16/14 811096"INJECTION, ONDANSETRON HYDROCHLORIDE, PER 1 MG" completed 05/16/14 824090"INJECTION, FENTANYL CITRATE, 0.1 MG" completed 05/16/14 266150"INJECTION, FENTANYL CITRATE, 0.1 MG" completed 05/16/14 368032"INJECTION, FENTANYL CITRATE, 0.1 MG" completed 05/16/14 [id number]"INFUSION, NORMAL SALINE SOLUTION , 1000 CC" completed 05/16/14 Encounters Encounter Location Date/Time Registered Emergency Room [facility] 06/06/14 12:01am Registered Clinic [facility] 05/31/14 11:35am Registered Clinic [facility] 05/29/14 1:25pm Registered [facility] 05/24/14 10:08am Departed Emergency Room [facility] 05/16/14 9:47pm Registered Clinic [facility] 05/14/14 12:15pm Registered Clinic [facility] 05/14/14 9:58am Registered [facility] 05/11/14 7:06am Registered [facility] 05/03/14 1:28pm Registered Clinic [facility] 05/03/14 10:23am Departed Emergency Room [facility] 05/02/14 11:27am Registered [facility] 05/01/14 1:46pm Discharged Inpatient [facility] 04/14/14 3:53pm Registered [facility] 04/06/14 12:16pm Discharged Recurring [facility] 04/05/14 2:38pm Registered Clinic [facility] 04/05/14 11:53am Registered [facility] 04/03/14 1:49pm Registered [facility] 03/27/14 1:36pm Registered [facility] 03/21/14 1:39pm Registered Clinic [facility] 03/14/14 8:05am Registered Clinic [facility] 03/08/14 11:36am Recent Diagnosis
--- OUTSIDE RECORDS SUMMARY | 2016-05-16 15:05 | XMS REPORT | Continuity of Care Document ---
Author Author [facility] Organization [facility] Address Unknown Phone Unavailable Care Team Providers Care Adjuster And Inspector Name Role Phone HAMILTON RECINOS DO Primary Care Physician [phone] Insurance Providers Payer Name Policy Number Subscriber Name Relationship [facility] Community Plan [id number] Luis M Aragon 19 Self Advance Directives [...] IN 1 WEEK. CBC, CMP, MG AT [facility] BEFORE APPOINTMENT WITH DR RECINOS.-- DR. RECINOS APPOINTMENT ON 09/08/13 AT 10:15 AM--PHONE # [phone] *FOLLOW UP WITH DR NAYLOR--- APPOINTMENT WITH DR. SASCHA NAYLOR, SCHEDULED ON 09/08/13 *FOLLOW UP WITH DR MAR APPOINTMENT MADE ON 10/03/13 AT 2:30PM [phone]. TSH AND FREE T4 LAB DRAWN THAT DAY AT [facility] AND SENT TO DR MAR. Patient Instructions: RETURN TO CARE IMMEDIATELY IF ABDOMINAL PAIN, CONSTIPATION SHOULD WORSEN. General Information: *CBC, CMP, MG IN ONE WEEK AT [facility] BEFORE APPOINTMENT WITH DR RECINOS. [...] of your legs. 3.During office hours, call [phone] 4. After hours, please call [facility] at [phone], and have the radial saw operator page your Surgeon IN THE EVENT OF AN EMERGENCY, seek medical care at the nearest Emergency Room Condition at time of discharge: Good Care Plan Discharge Patient: Goal: Understand discharge plan Patient Instructions: see patient instructions see patient instructions Plan of Care Discharge Date 09/01/13 2:41pm Disposition 02 TO [facility] Condition at Discharge [...] F (96.8 - 99.1) Temperature (Calculated Celsius) 36.73469 degrees C (36.0 - 37.3) Pulse Rate [...] 296 mg/dL H - Haptoglobin performed at [facility], [address] [place] [address]Izhlgxr Director Marlena Cottrell MD Hematocrit October 09, [...] performed at [facility], [address] [place] [address] Rough And Truing Machine Operator Marlena Cottrell MD Total Bilirubin October 09, [...] 114 mOsm/kg - Osmolality, Urine performed at [facility], [address], [place], [place] Rough And Truing Machine Operator Marlena Cottrell MD Urine Protein August 29, [...] Has specimen been collected/obtained? Y Urine Specific [place] August 29, 2013 6:30am 1.015 - Has [...] 09, 2013 10:39am LAB TEST FORM REQUEST [id number] - Chlamydia trachomatis Amplified DNA October 22, [...] performed at [facility], [address] [place] [address] Rough And Truing Machine Operator Marlena Cottrell MD Reactive Lymphocytes # April 21, 2013 9:00am 0.2 T/MM3 H 0-0 Thyroglobulin Antibody Screen August 15, 2013 6:50pm <3 IU/mL - Thyroglobulin Ab screen performed at [facility], [address] [place] [address] Rough And Truing Machine Operator Marlena Cottrell MD Immature Granulocyte # [...] 92 ng/dL - T3 Total performed at [facility], [address] [place], [place] [address]Kivtsmc Director Marlena Cottrell MD C. difficile Toxin [...] 10:00am Name: LUIS M ARAGON Unit #: [id number] : 1965 Sex: F Loc / [facility] DOS: 09/04/13 Signed Report #: [id number] DIAGNOSTIC IMAGING REPORT TYPE OF EXAM: CT [...] ADDON completed 08/29/13 TX/PRO/DX INJ SAME DRUG QUALITY ASSURANCE ASSOCIATE completed 08/29/13 HYDRATE IV INFUSION ADD-ON completed 08/29/13 Encounters Encounter Location Date/Time Departed Emergency Room [facility] 10/10/13 8:36pm Registered [facility] 10/09/13 8:37am Registered [facility] 09/13/13 9:03am Registered [facility] 09/04/13 12:22pm Discharged Inpatient [facility] 08/29/13 3:12pm Departed Emergency Room [facility] 08/29/13 5:36am Registered [facility] 08/24/13 7:07am Registered [facility] 08/21/13 12:49pm Registered [facility] 08/21/13 9:03am Discharged Inpatient [facility] 08/15/13 8:45pm Registered Clinic [facility] 08/14/13 12:51pm Registered Clinic [facility] 08/14/13 10:46am Registered Clinic [facility] 08/09/13 6:49am Registered Clinic [facility] 07/31/13 9:09am Registered Clinic [facility] 07/26/13 10:13am Registered Clinic [facility] 07/19/13 10:31am Registered Clinic [facility] 07/18/13 11:35am Registered [facility] 07/18/13 9:09am Recent Diagnosis
--- OUTSIDE RECORDS SUMMARY | 2016-05-16 15:05 | XMS REPORT | Continuity of Care Document ---
Author Author [facility] Organization [facility] Address Unknown Phone Unavailable Care Team Providers Care Garbage Stoker Name Role Phone HAMILTON RECINOS DO Primary Care Physician [phone] Insurance Providers Payer Name Policy Number Subscriber Name Relationship [facility] Community Plan [id number] Luis M Aragon 19 Self Advance Directives [...] UP APPOINTMENT WITH DR. RECINOS ON WEDNESDAY [phone] MAR IN 2 [...] of your legs. 3.During office hours, call [phone] 4. After hours, please call [facility] at [phone], and have the utility system operator page your Surgeon IN THE EVENT OF AN EMERGENCY, seek medical care at the nearest Emergency Room Condition at time of discharge: Good Care Plan Discharge Patient: Goal: Understand discharge plan Patient Instructions: see patient instructions Plan of Care Discharge Date 08/19/13 12:16pm Disposition 02 TO [facility] Condition at Discharge Improved Instructions/Education [...] F (96.8 - 99.1) Temperature (Calculated Celsius) 36.05877 degrees C (36.0 - 37.3) Pulse Rate [...] 296 mg/dL H - Haptoglobin performed at [facility], [address], [place], [place] [address]Vrmsjod Director Marlena Cottrell MD Hematocrit August 29, [...] 10.9 ug/dL - Thyroxine (T4) performed at [facility], [address] [place] [address] Washcloth Folder Marlena Cottrell MD Total Bilirubin August 29, [...] 114 mOsm/kg - Osmolality, Urine performed at [facility], [address] [facility], [id number] Washcloth Folder Marlena Cottrell MD Urine Protein August 29, [...] Has specimen been collected/obtained? Y Urine Specific [place] August 29, 2013 6:30am 1.015 - Has [...] 28, 2013 6:57pm LAB TEST FORM REQUEST [id number] - Chlamydia trachomatis Amplified DNA October 22, [...] IU/mL - Thyroperoxidase Ab (TPO) performed at [facility], [address] [place] [address] Washcloth Folder Marlena Cottrell MD Reactive Lymphocytes # April 21, 2013 9:00am 0.2 T/MM3 H 0-0 Thyroglobulin Antibody Screen August 15, 2013 6:50pm <3 IU/mL - Thyroglobulin Ab screen performed at [facility], [address] [place] [address] Washcloth Folder Marlena Cottrell MD Immature Granulocyte # (Auto) [...] 92 ng/dL - T3 Total performed at [facility], [address] [place] [address]Zeeosmd Director Marlena Cottrell MD C. difficile Toxin [...] Date/Time Departed Emergency Room [facility] 08/29/13 5:36am Registered [facility] 08/28/13 9:05am Registered [facility] 08/24/13 7:07am Registered [facility] 08/21/13 12:49pm Registered [facility] 08/21/13 9:03am Discharged Inpatient [facility] 08/15/13 8:45pm Registered Clinic [facility] 08/14/13 12:51pm Registered Clinic [facility] 08/14/13 10:46am Registered Clinic [facility] 08/09/13 6:49am Registered Clinic [facility] 07/31/13 9:09am Registered Clinic [facility] 07/26/13 10:13am Registered Clinic [facility] 07/19/13 10:31am Registered Clinic [facility] 07/18/13 11:35am Registered Clinic [facility] 07/18/13 9:09am Discharged Recurring [facility] 07/07/13 10:00am Registered Clinic [facility] 06/26/13 8:37am Discharged Inpatient [facility] 06/19/13 10:10am Registered Clinic [facility] 06/14/13 8:34am Registered Clinic [facility] 06/12/13 10:07am Registered Clinic [facility] 06/12/13 10:03am Registered Clinic [facility] 06/02/13 1:25pm Recent Diagnosis
--- OUTSIDE RECORDS SUMMARY | 2016-05-16 15:10 | XMS REPORT | Continuity of Care Document ---
Author Author [facility] Organization [facility] Address Unknown Phone Unavailable Care Team Providers Care Java Lead Architect Name Role Phone FELECIA GALLAGHER MD Primary Care Physician [phone] Insurance Providers Payer Name Policy Number Subscriber Name Relationship [facility] Community Plan [id number] Yvette Aragon 19 Self Advance Directives Directive [...] Date 04/20/14 5:30pm Disposition 02 TO [facility] Condition at Discharge Improved Instructions/Education Provided [facility] Discharge Instructions Colon Cancer [...] Y DEC 2013 Historical Hx Tetanus Diptheria [facility] Historical Hx Tetanus, Diptheria, Pertussis UNKNOWN Historical Hx Tetanus Toxoid Vaccination No Historical Vital Signs Acute Vital Signs Vital Response Date/Time Temperature (Fahrenheit) 99.2 deg F (96.8 - 99.1) Temperature (Calculated Celsius) 37.57238 degrees C (36.0 - 37.3) Pulse Rate [...] % L - Factor VII performed at [facility], [address] [facility], [place], [place] [address]Qbduzus Director Marlena Cottrell MD Conjugated Bilirubin July [...] Range: 2.6 - 18.5 Test Performed by: [facility] [address] [place] [address] Disbursement Clerk: Franklyn Myers II, M.D., Ph.D. Erythropoietin performed at [facility], [address] [place] [address] Wax Pattern Coater Bob Cottrell MD Ferritin May 07, 2014 [...] 253 mg/dL H - Haptoglobin performed at [facility], [address] [facility], [place], [place] [address]Rkjqxdb Director Viral Atwood DO Hematocrit May 16, 2014 9:30pm 33.8 % L 36-46 Hemoglobin May 16, 2014 9:30pm 11.0 GM/DL DL 12-16 Hemoglobin A1c June 22, 2013 4:48am 4.9 % L 6-7 <6.0 NON-DIABETIC RANGE6.0-7.0 ADA THERAPEUTIC RANGE >7.0 ACTION SUGGESTED Homocysteine May 07, 2014 10:25am 22.5 umol/L H - Homocysteine performed at [facility], [address], [place], [place] [address]Jfjbjlv Director Viral Atwood, DO Hypochromasia October 26, [...] B12 deficiency. Test Performed by: [facility] [place] [place] [id number] Disbursement Clerk: Franklyn Myers II, M.D., Ph.D. Methylmalonic Acid, Serum performed at [facility], [address] [place] [address] Wax Pattern Coater Bob Cottrell MD Monocytes # (Auto) May 16, 2014 9:30pm 0.4 T/MM3 N 0-0.8 Monocytes # (Manual) April 14, 2014 10:45am 0.4 T/MM3 N 0-0.8 Monocytes % (Manual) April 14, 2014 10:45am 5.0 % N 0-9.0 Monocytes (%) (Auto) May 16, 2014 9:30pm 7.3 % N 0-9.0 ZB-Oqg-V-Type Natriuretic Peptide January 13, 2014 4:22am 160 [...] below - 10% Calcium carbonateTest Performed by: [address] [address] Disbursement Clerk: Lonny Franz M.D. Stone Analysis performed at [facility], [address] [place], [place] [id number] Wax Pattern Coater Bob Cottrell MD Stone Source December 19, [...] IU/mL - Thyroglobulin Ab screen performed at [facility], [address] [place] [address] Wax Pattern Coater Marlena Cottrell MD Thyroid Stimulating Hormone (TSH) May 14, 2014 9:50am 1.77 MIU/L N 0.47-4.68 Thyroperoxidase Antibody August 15, 2013 11:10pm <3 IU/mL - Thyroperoxidase Ab (TPO) performed at [facility], [address] [place] [address] Wax Pattern Coater Marlena Cottrell MD Thyroxine (T4) August 15, 2013 6:50pm 10.9 ug/dL - Thyroxine (T4) performed at [facility], [address] [place] [address] Wax Pattern Coater Marlena Cottrell MD Total Bilirubin May 16, [...] 92 ng/dL - T3 Total performed at [facility], [address] [place], [place] [address]Xqnmwdp Director Marlena Cottrell MD Troponin I January [...] % - Eosinophil Count, Urine performed at [facility], [address] [place] [address] Wax Pattern Coater Marlena Cottrell MD Urine Glucose (UA) May [...] 366 mOsm/kg - Osmolality, Urine performed at [facility], [address] [facility], [place], [address] Wax Pattern Coater Marlena Cottrell MD Urine Protein May 17, [...] Has specimen been collected/obtained? Y Urine Specific [place] May 17, 2014 12:05am 1.020 - Has [...] 2011 5:55pm Name: YVETTE ARAGON Unit #: [id number] : 1965 Sex: F Loc / Svc: [facility] DOS: 05/11/14 Signed Report #: [id number] DIAGNOSTIC IMAGING REPORT TYPE OF EXAM: MRI [...] PRESS WOUND TX </=50 CM completed 02/20/14 [id number]"ADHESIVE BORDER, EACH DRESSING" completed 02/20/14 NEG PRESS WOUND TX </=50 CM completed 02/23/14 [id number]"ADHESIVE BORDER, EACH DRESSING" completed 02/23/14 CT ABD & PELVIS W/O CONTRAST completed 02/27/14 X-RAY EXAM OF SMALL BOWEL completed 02/27/14 E&M LEVEL - FACILITY completed 03/06/14 CT THORAX W/DYE completed 03/08/14 CT ABD & PELV W/CONTRAST completed 03/08/14 [id number]"INFUSION, NORMAL SALINE SOLUTION , 250 CC" completed 03/08/14 [id number]"LOW OSMOLAR CONTRAST MATERIAL, 300-399 MG/ML IODINE C completed E&M LEVEL - FACILITY completed 03/21/14 PET IMAGE W/CT FULL BODY completed 03/14/14 [id number]"FLUORODEOXYGLUCOSE F-18 FDG, DIAGNOSTIC, PER STUDY DO completed [...] Date/Time Departed Emergency Room [facility] 05/16/14 9:47pm Registered [facility] 05/14/14 12:15pm Registered [facility] 05/14/14 9:58am Registered [facility] 05/14/14 9:57am Registered [facility] 05/11/14 7:06am Registered [facility] 05/03/14 1:28pm Registered [facility] 05/03/14 10:23am Departed Emergency Room [facility] 05/02/14 11:27am Registered Clinic [facility] 05/01/14 1:46pm Discharged Inpatient [facility] 04/14/14 3:53pm Registered Clinic [facility] 04/06/14 12:16pm Registered [facility] 04/05/14 2:38pm Registered Clinic [facility] [...] Registered Clinic [facility] 02/20/14 1:59pm Discharged Recurring [facility] 03/10/13 8:27am Recent Diagnosis
[2016-05-16 15:11] VITALS: BP 133/89; PULSE 68; RESP 18; TEMP 97.7; O2SAT 100
--- OUTSIDE RECORDS SUMMARY | 2016-05-16 15:11 | XMS REPORT | Continuity of Care Document ---
Author Author [facility] Organization [facility] Address Unknown Phone Unavailable Support Name Relationship Address Phone JIGAR WHITTAKER MD Caregiver [phone] [facility] [place] [phone] FELECIA GALLAGHER MD Caregiver [facility] [phone] [facility] [address] [place] [address] DAVE WREN Next Of Kin [address] [place] [address] CP Insurance Providers Payer Name Policy Number Subscriber Name Relationship [facility] Community Plan [id number] Luis M Aragon 19 Self Advance Directives [...] Discharge Date 04/20/14 5:30pm Disposition 02 TO [facility] Condition at Discharge Improved Instructions/Education Provided [facility] D[facility] Discharge Instructions Colon Cancer DI for [...] F (96.8 - 99.1) Temperature (Calculated Celsius) 36.76914 degrees C (36.0 - 37.3) Pulse Rate [...] % L - Factor VII performed at [facility], [address] [place], [place] [address]Udiqhtd Director Marlena Cottrell MD Conjugated Bilirubin July [...] 329 mg/dL H - Haptoglobin performed at [facility], [address] [place], [place] [address]Kcstdrk Director Marlena Cottrell MD Hematocrit May 02, [...] 02, 2014 1:08pm 11.2 % H 0-9.0 AS-Xhv-H-Type Natriuretic Peptide January 13, 2014 4:22am 160 [...] below - 10% Calcium carbonateTest Performed by: [place] [address] Material Reprocessing Associate: Lonny Franz M.D. Stone Analysis performed at [facility], [address] [place] [address] Editor House Organ Bob Cottrell MD Stone Source December 19, [...] IU/mL - Thyroglobulin Ab screen performed at [facility] Reference Lab, [address] [place] [address] Editor House Organ Marlena Cottrell MD Thyroid Stimulating Hormone (TSH) April 19, 2014 5:11am 127.00 MIU/L H 0.47-4.68 COMMENT Add on - blood already in lab Thyroperoxidase Antibody August 15, 2013 11:10pm <3 IU/mL - Thyroperoxidase Ab (TPO) performed at [facility] Reference Lab, [address] [place] [address] Editor House Organ Marlena Cottrell MD Thyroxine (T4) August 15, 2013 6:50pm 10.9 ug/dL - Thyroxine (T4) performed at [facility] Reference Lab, [address] [place] [address] Editor House Organ Marlena Cottrell MD Total Bilirubin May 02, [...] 143 MG/DL H 35-135 Triiodothyonine (T3) (JOSE MGIUEL) August 15, 2013 6:50pm 92 ng/dL - T3 Total performed at [facility], [address] [place], [place] [address]Medical Director Marlena Cottrell MD Troponin I January [...] % - Eosinophil Count, Urine performed at [facility] Reference Lab, [address] [place] [address] Editor House Organ Marlena Cottrell MD Urine Glucose (UA) May [...] 366 mOsm/kg - Osmolality, Urine performed at [facility], [address] [facility], [place], [place] Editor House Organ Marlena Cottrell MD Urine Protein May 02, [...] Has specimen been collected/obtained? Y Urine Specific [place] May 02, 2014 11:45am 1.025 - Has [...] 5:55pm Name: LUIS M ARAGON Unit #: [id number] : 1965 Sex: F Loc / Svc: SRG DOS: 04/14/14 Signed Report #: [id number] DIAGNOSTIC IMAGING REPORT TYPE OF EXAM: SMALL BOWEL SERIES Dictated By: NORM PALMER MD Indication: ITS.REASON: Small bowel obstruction SMALL BOWEL SERIES: Comparison: Small bowel series dated February 27, 2014 Findings: Demonstrator Sales radiograph of the abdomen was obtained demonstrating [...] PRESS WOUND [place] </=50 CM completed 02/06/14 150019"ADHESIVE BORDER, EACH DRESSING" completed 02/06/14 X-RAY EXAM OF ABDOMEN completed 02/05/14 RMVL DEVITAL TIS 20 CM/< completed 02/13/14 NEG PRESS WOUND TX </=50 CM completed 02/13/14 [id number]"ADHESIVE BORDER, EACH DRESSING" completed 02/13/14 X-RAY UPPER GI&SMALL INTEST completed 02/08/14 NEG PRESS WOUND [place] </=50 CM completed 02/20/14 305012"ADHESIVE BORDER, EACH DRESSING" completed 02/20/14 NEG PRESS WOUND [place] </=50 CM completed 02/23/14 246152"ADHESIVE BORDER, EACH DRESSING" completed 02/23/14 CT ABD & PELVIS W/O CONTRAST completed 02/27/14 X-RAY EXAM OF SMALL BOWEL completed 02/27/14 E&M LEVEL - FACILITY completed 03/06/14 CT THORAX W/DYE completed 03/08/14 CT ABD & PELV W/CONTRAST completed 03/08/14 [id number]"INFUSION, NORMAL SALINE SOLUTION , 250 CC" completed 03/08/14 [id number]"LOW OSMOLAR CONTRAST MATERIAL, 300-399 MG/ML IODINE C completed E&M LEVEL - FACILITY completed 03/21/14 PET IMAGE W/CT FULL BODY completed 03/14/14 [id number]"FLUORODEOXYGLUCOSE F-18 FDG, DIAGNOSTIC, PER STUDY DO completed RMVL DEVITAL TIS 20 CM/< completed 03/27/14 E&M LEVEL - FACILITY completed 04/03/14 US EXAM ABDO BACK WALL COMP completed 04/05/14 EXTREMITY STUDY completed 04/05/14 X-RAY EXAM OF ABDOMEN completed 04/06/14 BLOOD TRANSFUSION SERVICE completed 04/14/14 LUIS MANUEL HOUGH MD Encounters Encounter Location Date/Time Departed Emergency Room [facility] 05/02/14 11:27am Registered [facility] 05/01/14 1:46pm Registered [facility] 05/01/14 10:32am Discharged Inpatient [facility] 04/14/14 3:53pm Registered Clinic [facility] 04/06/14 12:16pm Registered Recurring [facility] 04/05/14 2:38pm Registered Clinic [facility] 04/05/14 11:53am Registered Clinic [facility] 04/03/14 1:49pm Registered Clinic [facility] 03/27/14 1:36pm Registered Clinic [facility] 03/21/14 1:39pm Registered Clinic [facility] 03/14/14 8:05am Registered Clinic [facility] 03/08/14 11:36am Registered Clinic [facility] 03/06/14 1:39pm Registered Clinic [facility] 02/27/14 8:22am Registered Clinic [facility] 02/23/14 9:06am Registered Clinic [facility] 02/20/14 1:59pm Registered Clinic [facility] 02/13/14 1:57pm Registered Clinic [facility] 02/08/14 12:26pm Registered Clinic [facility] 02/07/14 9:58am Registered Clinic [facility] 02/06/14 1:33pm Registered Clinic [facility] 02/05/14 10:21am Discharged Recurring [facility] 03/10/13 8:27am Recent Diagnosis
--- OUTSIDE RECORDS SUMMARY | 2016-05-16 15:11 | XMS REPORT | Continuity of Care Document ---
Author Author [facility] Organization [facility] Address Unknown Phone Unavailable Care Team Providers Care Services Advisor Name Role Phone FELECIA GALLAGHER MD Primary Care Physician [phone] Insurance Providers Payer Name Policy Number Subscriber Name Relationship [facility] Community Plan [id number] Yvette Aragon 19 Self Advance Directives Directive [...] F (96.8 - 99.1) Temperature (Calculated Celsius) 37.44463 degrees C (36.0 - 37.3) Pulse Rate [...] L - Factor VII performed at [facility], [address] [facility], [place], [place] [address]Wwfropz Director Marlena Cottrell MD Conjugated Bilirubin July [...] Range: 2.6 - 18.5 Test Performed by: [place] [address] Experimental Technician: Franklyn Myers II, M.D., Ph.D. Erythropoietin performed at [facility], [address] [place] [address] Budget Consultant MD Indigo Torres III May 07, 2014 [...] 253 mg/dL H - Haptoglobin performed at [facility], [address] [place], [place] [address]Psyunaw Director Viral Atwood DO Hematocrit May 17, 2014 10:00am 30.2 % L 36-46 Hemoglobin May 17, 2014 10:00am 9.7 GM/DL DL 12-16 Hemoglobin A1c June 22, 2013 4:48am 4.9 % L 6-7 <6.0 NON-DIABETIC RANGE6.0-7.0 ADA THERAPEUTIC RANGE >7.0 ACTION SUGGESTED Homocysteine May 07, 2014 10:25am 22.5 umol/L H - Homocysteine performed at [facility] Reference Lab, [address] [place], [place] [address]Qeetsct Director Viral Atwood DO Hypochromasia October 26, [...] B12 deficiency. Test Performed by: [facility] - [address] [address] Experimental Technician: Franklyn Myers II, M.D., Ph.D. Methylmalonic Acid, Serum performed at [facility], [address] [place], [place] [address] Budget Consultant Bob Cottrell MD Monocytes # (Auto) May 17, 2014 10:00am 0.3 T/MM3 N 0-0.8 Monocytes # (Manual) April 14, 2014 10:45am 0.4 T/MM3 N 0-0.8 Monocytes % (Manual) April 14, 2014 10:45am 5.0 % N 0-9.0 Monocytes (%) (Auto) May 17, 2014 10:00am 5.5 % N 0-9.0 ST-Jfz-S-Type Natriuretic Peptide January 13, 2014 4:22am 160 [...] below - 10% Calcium carbonateTest Performed by: [place] [address] Experimental Technician: Lonny Franz M.D. Stone Analysis performed at [facility], [address] [place] [address] Budget Consultant Bob Cottrell MD Stone Source December 19, [...] [facility], [address] [place] [address] Budget Consultant Marlena Cottrell MD Thyroid Stimulating Hormone (TSH) May 14, 2014 9:50am 1.77 MIU/L N 0.47-4.68 Thyroperoxidase Antibody August 15, 2013 11:10pm <3 IU/mL - Thyroperoxidase Ab (TPO) performed at [facility] Reference Lab, [address] [place] [address] Budget Consultant Marlena Cottrell MD Thyroxine (T4) August 15, 2013 6:50pm 10.9 ug/dL - Thyroxine (T4) performed at [facility] Reference Lab, [address] [place] [address] Budget Consultant Marlena Cottrell MD Total Bilirubin May 17, [...] ng/dL - T3 Total performed at [facility], [address] [place], [place] [address]Medical Director Marlena Cottrell MD Troponin I January [...] % - Eosinophil Count, Urine performed at [facility] Reference Lab, [address] [place] [address] Budget Consultant Marlena Cottrell MD Urine Glucose (UA) May [...] mOsm/kg - Osmolality, Urine performed at [facility], [address] [place] [address] Budget Consultant Marlena Cottrell MD Urine Protein May 17, [...] Has specimen been collected/obtained? Y Urine Specific [place] May 17, 2014 12:05am 1.020 - Has [...] 2011 5:55pm Name: YVETTE ARAGON Unit #: [id number] : 1965 Sex: F Loc / Svc: ED DOS: 05/16/14 Signed Report #: [id number] DIAGNOSTIC IMAGING REPORT TYPE OF EXAM: CT [...] PRESS WOUND TX </=50 CM completed 02/20/14 [id number]"ADHESIVE BORDER, EACH DRESSING" completed 02/20/14 NEG PRESS WOUND TX </=50 CM completed 02/23/14 [id number]"ADHESIVE BORDER, EACH DRESSING" completed 02/23/14 CT ABD & PELVIS W/O CONTRAST completed 02/27/14 X-RAY EXAM OF SMALL BOWEL completed 02/27/14 E&M LEVEL - FACILITY completed 03/06/14 CT THORAX W/DYE completed 03/08/14 CT ABD & PELV W/CONTRAST completed 03/08/14 269325"INFUSION, NORMAL SALINE SOLUTION , 250 CC" completed 03/08/14 [id number]"LOW OSMOLAR CONTRAST MATERIAL, 300-399 MG/ML IODINE C completed E&M LEVEL - FACILITY completed 03/21/14 PET IMAGE W/CT FULL BODY completed 03/14/14 [id number]"FLUORODEOXYGLUCOSE F-18 FDG, DIAGNOSTIC, PER STUDY DO completed [...] ADDON completed 05/16/14 TX/PRO/DX INJ SAME DRUG FISHING VESSEL CAPTAIN completed 05/16/14 TX/PRO/DX INJ SAME DRUG FISHING VESSEL CAPTAIN completed 05/16/14 EMERGENCY DEPT VISIT completed 05/16/14 [id number] ITEM OR SERVICE completed 05/16/14 982652"INJECTION, KETOROLAC TROMETHAMINE, PER 15 MG" completed 05/16/14 090352"INJECTION, ONDANSETRON HYDROCHLORIDE, PER 1 MG" completed 05/16/14 747670"INJECTION, FENTANYL CITRATE, 0.1 MG" completed 05/16/14 865554"INJECTION, FENTANYL CITRATE, 0.1 MG" completed 05/16/14 296194"INJECTION, FENTANYL CITRATE, 0.1 MG" completed 05/16/14 132428"INFUSION, NORMAL SALINE SOLUTION , 1000 CC" completed 05/16/14 Encounters Encounter Location Date/Time Registered [facility] 05/17/14 10:11am Departed Emergency Room [facility] 05/16/14 9:47pm Registered [facility] 05/14/14 12:15pm Registered [facility] 05/14/14 9:58am Registered [facility] 05/11/14 7:06am Registered [facility] 05/03/14 1:28pm Registered [facility] 05/03/14 10:23am Departed Emergency Room [facility] 05/02/14 11:27am Registered [facility] 05/01/14 1:46pm Discharged Inpatient [facility] 04/14/14 3:53pm Registered Clinic [facility] 04/06/14 12:16pm Discharged Recurring [facility] 04/05/14 2:38pm Registered Clinic [facility] 04/05/14 11:53am Registered Clinic [facility] 04/03/14 1:49pm Registered Clinic [facility] 03/27/14 1:36pm Registered Clinic [facility] 03/21/14 1:39pm Registered Clinic [facility] 03/14/14 8:05am Registered Clinic [facility] 03/08/14 11:36am Registered Clinic [facility] 03/06/14 1:39pm Registered Clinic [facility] 02/27/14 8:22am Registered Clinic [facility] 02/23/14 9:06am Registered Clinic [facility] 02/20/14 1:59pm Discharged Recurring [facility] 03/10/13 8:27am
[2016-05-16 15:12] VITALS: Ht 160 cm; Wt 57.8 kg
--- OUTSIDE RECORDS SUMMARY | 2016-05-16 15:12 | XMS REPORT | Continuity of Care Document ---
Author Author [facility] Organization [facility] Address Unknown Phone Unavailable Care Team Providers Care Director Group Sales Name Role Phone HAMILTON RECINOS DO Primary Care Physician [phone] Insurance Providers Payer Name Policy Number Subscriber Name Relationship [facility] Community Plan [id number] Luis M Aragon 19 Self Advance Directives [...] F (96.8 - 99.1) Temperature (Calculated Celsius) 37.59877 degrees C (36.0 - 37.3) Temperature Source [...] % L - Factor VII performed at [facility], [address] [facility], [place] [address]Qcevcjb Director Marlena Ctotrell MD Conjugated Bilirubin July 22, 2012 12:50am [...] 329 mg/dL H - Haptoglobin performed at [facility], [address] [facility], [place], [place] [address]Kqgudaz Director Marlena Cottrell MD Hematocrit November 02, [...] 25, 2013 12:02pm LAB TEST FORM REQUEST [id number] - Lactate Dehydrogenase October 25, 2013 1:45pm [...] below - 10% Calcium carbonateTest Performed by: [place] [address] Inspector Repairer: Sunny Rojas III, M.D. Stone Analysis performed at [facility], [address] [place] [address] Collection Systems Administrator Bob Cottrell MD Stone Source October 31, 2013 8:30am Kidney - Stone Analysis performed at [facility], , [place], [place] [address]Fpgukgd Director Bob Cottrell, Corrected result; previously reported as KIDNEY on 10/31/13 at 11:56 by Bethany/KVNG --- 11/01/132128 --- STOS previously reported as: KIDNEY Stone Analysis performed at [facility], , [place] [address] Collection Systems Administrator Bob Cottrell, Stone Weight October 31, 2013 [...] IU/mL - Thyroglobulin Ab screen performed at [facility] Reference Lab, [address] [place] [address] Collection Systems Administrator Marlena Cottrell MD Thyroid Stimulating Hormone (TSH) October 25, 2013 1:45pm < 0.02 MIU/L L 0.47-4.68 Thyroperoxidase Antibody August 15, 2013 11:10pm <3 IU/mL - Thyroperoxidase Ab (TPO) performed at [facility] Reference Lab, [address] [place] [address] Collection Systems Administrator Marlena Cottrell MD Thyroxine (T4) August 15, 2013 6:50pm 10.9 ug/dL - Thyroxine (T4) performed at [facility] Reference Lab, [address] [place] [address] Collection Systems Administrator Marlena Cottrell MD Total Bilirubin November 02, [...] 92 ng/dL - T3 Total performed at [facility], [address] [place], [place] [address]Medical Director Marlena Cottrell MD Troponin I October [...] % - Eosinophil Count, Urine performed at [facility] Reference Lab, [address] [place] [address] Collection Systems Administrator Marlena Cottrell MD Urine Glucose (UA) October [...] 366 mOsm/kg - Osmolality, Urine performed at [facility], [address] [place] [address] Collection Systems Administrator Marlena Cottrell MD Urine Protein October 30, [...] Has specimen been collected/obtained? Y Urine Specific [place] October 30, 2013 1:51pm 1.015 - COMMENT [...] 5:55pm Name: LUIS M ARAGON Unit #: [id number] : 1965 Sex: F Loc / Svc: MED DOS: Signed Report #: [id number] DIAGNOSTIC IMAGING REPORT TYPE OF EXAM: RF [...] ADDON completed 08/29/13 TX/PRO/DX INJ SAME DRUG SHIP LOADER completed 08/29/13 HYDRATE IV INFUSION ADD-ON completed 08/29/13 RPR S/N/AX/GEN/TRNK 2.5CM/< completed 10/10/13 DUSTIN MILES MD Cystoscopic insertion of ureteral stent completed 10/31/13 REYNA BENNETT MD Encounters Encounter Location Date/Time Discharged Inpatient [facility] 10/25/13 12:11pm Registered Recurring [facility] 10/25/13 9:45am Departed Emergency Room [facility] 10/18/13 11:25am Departed Emergency Room [facility] 10/10/13 8:36pm Registered Clinic [facility] 09/13/13 9:03am Registered Clinic [facility] 09/04/13 12:22pm Discharged Inpatient [facility] 08/29/13 3:12pm Departed Emergency Room [facility] 08/29/13 5:36am Registered Clinic [facility] 08/24/13 7:07am Registered Clinic [facility] 08/21/13 12:49pm Registered Clinic [facility] 08/21/13 9:03am Discharged Inpatient [facility] 08/15/13 8:45pm Registered Clinic [facility] 08/14/13 12:51pm Registered Clinic [facility] 08/14/13 10:46am Registered Clinic [facility] 08/09/13 6:49am
--- OUTSIDE RECORDS SUMMARY | 2016-05-16 15:12 | XMS REPORT | Continuity of Care Document ---
Author Author [facility] Organization [facility] Address Unknown Phone Unavailable Care Team Providers Care Feed Handler Name Role Phone HAMILTON RECINOS DO Primary Care Physician [phone] Insurance Providers Payer Name Policy Number Subscriber Name Relationship [facility] Community Plan [id number] Luis M Aragon 19 Self Advance Directives [...] with diff, CMP, Mg, Phos done at [facility] before appointment that day. [...] F (96.8 - 99.1) Temperature (Calculated Celsius) 36.12161 degrees C (36.0 - 37.3) Temperature Source [...] % L - Factor VII performed at [facility], [address] [facility], [place] [address]Sxzwfmp Director Marlena Cottrell MD Conjugated Bilirubin July [...] 329 mg/dL H - Haptoglobin performed at [facility], [address] [place], [place] [address]Kcuwmlz Director Marlena Cottrell MD Hematocrit February 19, [...] 10.9 ug/dL - Thyroxine (T4) performed at [facility] Reference Lab, [address] [place] [address], [id number] Pot Liner Marlena Cottrell MD Total Bilirubin February 19, [...] % - Eosinophil Count, Urine performed at [facility] Reference [facility], [address] [place] [address] Pot Liner Marlena Cottrell MD Urine Glucose (UA) January [...] 366 mOsm/kg - Osmolality, Urine performed at [facility], [address] [place], [place] Pot Liner Marlena Cottrell MD Urine Protein January 12, [...] Has specimen been collected/obtained? Y Urine Specific [place] January 12, 2014 7:30am 1.015 - Has [...] below - 10% Calcium carbonateTest Performed by: [place] [address] [employer] Ass[employer] Craft Crewman: Lonny Franz M.D. Stone Analysis performed at [facility], [address] [place] [address] Pot Liner Bob Cottrell MD Glucometer June 20, 2013 6:29pm 108 mg/dL N 65-110 Lab Scanned Report February 19, 2014 8:14pm LAB TEST FORM REQUEST [id number] - Chlamydia trachomatis Amplified DNA October 22, [...] IU/mL - Thyroperoxidase Ab (TPO) performed at [facility] Reference Lab, [address] [place] [address] Pot Liner Marlena Cottrell MD Reactive Lymphocytes # October 30, 2013 4:44am 0.6 T/MM3 H 0-0 Thyroglobulin Antibody Screen August 15, 2013 6:50pm <3 IU/mL - Thyroglobulin Ab screen performed at [facility] Reference Lab, [address] [place] [address] Pot Liner Marlena Cottrell MD Immature Granulocyte # (Auto) [...] 27, 2012 4:28pm 0.9 MMOL/L N 0.5-0.9 OZ-Wrv-B-Type Natriuretic Peptide January 13, 2014 4:22am 160 PG/ML N 0 -175 Rule in cut points: <50 years old=450; 50-75 years old=900; >75 years old=1800; When utilizing ProBNP rule-in cut points, adjustment for impaired renal function is typically not required. Triiodothyonine (T3) (JOSE MIGUEL) August 15, 2013 6:50pm 92 ng/dL - T3 Total performed at [facility], [address] [place], [place] [address]Uyniiuo Director Marlena Cottrell MD C. difficile Toxin [...] 3:00pm Name: LUIS M ARAGON Unit #: [id number] : 1965 Sex: F Loc / Svc: [facility] DOS: 02/08/14 Signed Report #: [id number] DIAGNOSTIC IMAGING REPORT TYPE OF EXAM: UPPER [...] PRESS WOUND TX </=50 CM completed 01/02/14 825807"ADHESIVE BORDER, EACH DRESSING" completed 01/02/14 NEG PRESS WOUND TX </=50 CM completed 01/09/14 [id number]"OSTOMY SKIN BARRIER, PECTIN-BASED, PASTE, PER OUNCE" completed 180944"ADHESIVE BORDER, EACH DRESSING" completed 01/09/14 X-RAY EXAM OF ABDOMEN completed 01/04/14 X-RAY EXAM OF ABDOMEN completed 01/08/14 NEG PRESS WOUND TX </=50 CM completed 01/23/14 808202"ADHESIVE BORDER, EACH DRESSING" completed 01/23/14 NEG PRESS WOUND TX </=50 CM completed 01/30/14 144458"ADHESIVE BORDER, EACH DRESSING" completed 01/30/14 X-RAY EXAM OF ABDOMEN completed 01/29/14 NEG PRESS WOUND TX </=50 CM completed 02/06/14 780611"ADHESIVE BORDER, EACH DRESSING" completed 02/06/14 X-RAY EXAM OF ABDOMEN completed 02/05/14 X-RAY UPPER GI&SMALL INTEST completed 02/08/14 Encounters Encounter Location Date/Time Registered [facility] 02/20/14 1:59pm Discharged [facility] 02/19/14 9:50am Registered [facility] 02/13/14 1:57pm Registered [facility] 02/08/14 12:26pm Registered [facility] 02/07/14 9:58am Registered [facility] 02/06/14 1:33pm Registered [facility] 02/05/14 10:21am Registered [facility] 01/30/14 1:30pm Registered [facility] 01/29/14 11:20am Registered [facility] 01/23/14 1:57pm Discharged Inpatient [facility] 01/12/14 9:38am Registered Clinic [facility] 01/09/14 1:58pm Registered Clinic [facility] 01/08/14 11:07am Registered Clinic [facility] 01/04/14 3:11pm Registered Clinic [facility] 01/02/14 1:23pm Discharged Inpatient [facility] 12/25/13 9:56pm Registered Clinic [facility] 12/12/13 1:27pm Registered Clinic [facility] 12/08/13 12:20pm Registered Clinic [facility] 12/08/13 11:48am Registered Clinic [facility] 12/06/13 10:08am Registered Clinic [facility] 12/04/13 11:20am Registered Clinic [facility] 12/01/13 9:33am Registered Clinic [facility] 11/28/13 1:25pm
--- OUTSIDE RECORDS SUMMARY | 2016-05-16 15:13 | XMS REPORT | Continuity of Care Document ---
Author Author [facility]IVE Organization [facility] Address Unknown Phone Unavailable Care Team Providers Care Dermatologist Managing Partner Name Role Phone HAMILTON RECINOS DO Primary Care Physician [phone] Insurance Providers Payer Name Policy Number Subscriber Name Relationship [facility] Community Plan [id number] Luis M Aragon 19 Self Advance Directives [...] F (96.8 - 99.1) Temperature (Calculated Celsius) 36.34301 degrees C (36.0 - 37.3) Temperature Source [...] % L - Factor VII performed at [facility], [address], [place] [address]Cqtegyv Director Marlena Cottrell MD Conjugated Bilirubin July [...] 329 mg/dL H - Haptoglobin performed at [facility], [address], [place] [address]Gtymrkp Director Marlena Cottrell MD Hematocrit December 05, [...] Stone Analysis performed at [facility] [employer], , [place] [id number] Director Bob Cottrell, Corrected result; previously reported as KIDNEY on 10/31/13 at 11:56 by V/KVNG --- 11/01/132128 --- STOS previously reported as: KIDNEY Stone Analysis performed at [facility] [employer], , [place] [address] Radio Machinist Bob Cottrell, Stone Weight October 31, 2013 [...] ug/dL - Thyroxine (T4) performed at [facility], [address] [place] [address] Radio Machinist Marlena Cottrell MD Total Bilirubin December 05, [...] - Eosinophil Count, Urine performed at [facility], [address] [place] [address] Radio Machinist Marlena Cottrell MD Urine Glucose (UA) November 07, 2013 10:22am Negative - Urine Ketones November 07, 2013 10:22am Negative - Urine Leukocyte Esterase November 07, 2013 10:22am 2+ H - Urine Nitrite November 07, 2013 10:22am Negative - Urine Osmolality October 30, 2013 1:51pm 366 mOsm/kg - Osmolality, Urine performed at [facility], [address] [place] [address] Radio Machinist Marlena Cottrell MD Urine Protein November 07, 2013 10:22am Negative - Urine RBC November 07, 2013 10:22am 1-3 /HPF - Urine Random Creatinine October 30, 2013 1:51pm 19.7 MG/DL - Has specimen been collected/obtained? Y Urine Random Sodium October 30, 2013 1:51pm 166 MEQ/L H 30-90 Has specimen been collected/obtained? Y Urine Specific [place] November 07, 2013 10:22am 1.010 L - [...] below - 10% Calcium carbonateTest Performed by: [place] [address] Mandolin Repairer: Sunny Rojas III, M.D. Stone Analysis performed at [facility], [address] [place] [address] Radio Machinist Bob Cottrell MD Glucometer June 20, 2013 6:29pm 108 mg/dL N 65-110 Lab Scanned Report December 04, 2013 7:15pm LAB TEST FORM REQUEST [id number] - Chlamydia trachomatis Amplified DNA October 22, [...] - Thyroperoxidase Ab (TPO) performed at [facility], [address] [place] [address] Radio Machinist Marlena Cottrell MD Reactive Lymphocytes # October 30, 2013 4:44am 0.6 T/MM3 H 0-0 Thyroglobulin Antibody Screen August 15, 2013 6:50pm <3 IU/mL - Thyroglobulin Ab screen performed at [facility], [facility] [place] [address] Radio Machinist Marlena Cottrell MD Immature Granulocyte # (Auto) [...] 92 ng/dL - T3 Total performed at [facility], [address] [facility], [place] [address]Ygejmbg Director Marlena Cottrell MD C. difficile Toxin [...] 5:55pm Name: LUIS M ARAGON Unit #: [id number] : 1965 Sex: F Loc / Svc: ARU DOS: 12/05/13 Signed Report #: [id number] DIAGNOSTIC IMAGING REPORT TYPE OF EXAM: RF [...] BENNETT MD Encounters Encounter Location Date/Time Registered [facility] 12/04/13 11:20am Registered [facility] 12/04/13 9:16am Registered Clinic [facility] 12/01/13 9:33am Registered Clinic [facility] 11/28/13 1:25pm Registered [facility] 11/23/13 8:34am Registered [facility] 11/22/13 12:39pm Registered Clinic [facility] 11/22/13 12:24pm Registered [facility] 11/17/13 10:26am Registered [facility] 11/15/13 1:39pm Discharged Recurring [facility] 11/14/13 8:42am Registered [facility] 11/08/13 4:28pm Registered [facility] 11/08/13 9:01am Registered [facility] 11/07/13 10:27am Discharged Inpatient [facility] 10/25/13 12:11pm Departed Emergency Room [facility] 10/18/13 11:25am Departed Emergency Room [facility] 10/10/13 8:36pm Registered [facility] 09/13/13 9:03am
--- OUTSIDE RECORDS SUMMARY | 2016-05-16 15:13 | XMS REPORT | Continuity of Care Document ---
Author Author [facility] Organization [facility] Address Unknown Phone Unavailable Care Team Providers Care Digital Cartographic Technician Name Role Phone HAMILTON RECINOS DO Primary Care Physician [phone] Insurance Providers Payer Name Policy Number Subscriber Name Relationship [facility] Community Plan [id number] Luis M Berman 19 Self Advance Directives [...] of your legs. 3.During office hours, call [phone] 4. After hours, please call [facility] at [phone], and have the draw frame operator page your Surgeon IN THE EVENT [...] F (96.8 - 99.1) Temperature (Calculated Celsius) 37.91065 degrees C (36.0 - 37.3) Temperature Source [...] Factor VII performed at [facility], [address] [place], [place] [address]Vwhmyqz Director Marlena Cottrell MD Conjugated Bilirubin July [...] 329 mg/dL H - Haptoglobin performed at [facility], [address] [place], [place] [address]Bgaiodt Director Marlena Cottrell MD Hematocrit November 13, [...] 8:30am Kidney - Stone Analysis performed at [facility] [employer], , [place] [id number] Director Bob Cottrell, Corrected result; previously reported as KIDNEY on 10/31/13 at 11:56 by Bethany/KVNG --- 11/01/132128 --- STOS previously reported as: KIDNEY Stone Analysis performed at [facility] [employer], , [place] [address] Desktop Support Engineer Bob Cottrell, Stone Weight October 31, 2013 [...] performed at [facility], [address] [place] [address] Desktop Support Engineer Marlena Cottrell MD Total Bilirubin November 13, [...] performed at [facility], [address] [place] [address] Desktop Support Engineer Marlena Cottrell MD Urine Glucose (UA) November 07, 2013 10:22am Negative - Urine Ketones November 07, 2013 10:22am Negative - Urine Leukocyte Esterase November 07, 2013 10:22am 2+ H - Urine Nitrite November 07, 2013 10:22am Negative - Urine Osmolality October 30, 2013 1:51pm 366 mOsm/kg - Osmolality, Urine performed at [facility], [address] [place] [address] Desktop Support Engineer Marlena Cottrell MD Urine Protein November 07, 2013 10:22am Negative - Urine RBC November 07, 2013 10:22am 1-3 /HPF - Urine Random Creatinine October 30, 2013 1:51pm 19.7 MG/DL - Has specimen been collected/obtained? Y Urine Random Sodium October 30, 2013 1:51pm 166 MEQ/L H 30-90 Has specimen been collected/obtained? Y Urine Specific [place] November 07, 2013 10:22am 1.010 L - [...] below - 10% Calcium carbonateTest Performed by: [place] [address] Community Dietitian: Sunny Rojas III, M.D. Stone Analysis performed at [facility] [place] [facility], [address] [place] [address] Desktop Support Engineer Bob Cottrell MD Glucometer June 20, 2013 6:29pm 108 mg/dL N 65-110 Lab Scanned Report November 13, 2013 10:41am LAB TEST FORM REQUEST [id number] - Chlamydia trachomatis Amplified DNA October 22, [...] performed at [facility], [address] [place] [address] Desktop Support Engineer Marlena Cottrell MD Reactive Lymphocytes # October 30, 2013 4:44am 0.6 T/MM3 H 0-0 Thyroglobulin Antibody Screen August 15, 2013 6:50pm <3 IU/mL - Thyroglobulin Ab screen performed at [facility], [address] [place] [address] Desktop Support Engineer Marlena Cottrell MD Immature Granulocyte # [...] 92 ng/dL - T3 Total performed at [facility], [address] [facility], [place], [place] [address]Qveeczd Director Marlena Cottrell MD C. difficile Toxin [...] 3:00pm Name: LUIS M BERMAN Unit #: [id number] : 1965 Sex: F Loc / Svc: MED DOS: Signed Report #: [id number] DIAGNOSTIC IMAGING REPORT TYPE OF EXAM: RF [...] ADDON completed 08/29/13 TX/PRO/DX INJ SAME DRUG PATTERN CARRIER completed 08/29/13 HYDRATE IV INFUSION ADD-ON completed 08/29/13 RPR S/N/AX/GEN/TRNK 2.5CM/< completed 10/10/13 DUSTIN MILES MD BLOOD TRANSFUSION SERVICE completed 10/25/13 HAMILTON RECINOS DO CYSTOSCOPY AND TREATMENT completed 10/25/13 REYNA PATE MD CYSTOSCOPY & URETER CATHETER completed 10/25/13 REYNA PATE MD CYSTOSCOPY AND TREATMENT completed 10/25/13 REYNA PATE MD Encounters Encounter Location Date/Time Registered [facility] 11/15/13 1:39pm Discharged Recurring [facility] 11/14/13 8:42am Registered [facility] 11/13/13 9:48am Registered [facility] 11/08/13 4:28pm Registered [facility] 11/08/13 9:01am Registered [facility] 11/07/13 10:27am Discharged Inpatient [facility] 10/25/13 12:11pm Departed Emergency Room [facility] 10/18/13 11:25am Departed Emergency Room [facility] 10/10/13 8:36pm Registered [facility] 09/13/13 9:03am Registered [facility] 09/04/13 12:22pm Discharged Inpatient [facility] 08/29/13 3:12pm Departed Emergency Room [facility] 08/29/13 5:36am Registered [facility] 08/24/13 7:07am Registered [facility] 08/21/13 12:49pm Registered [facility] 08/21/13 9:03am Discharged Inpatient [facility] 08/15/13 8:45pm
--- OUTSIDE RECORDS SUMMARY | 2016-05-16 15:13 | XMS REPORT | Continuity of Care Document ---
Author Author [facility] Organization [facility] Address Unknown Phone Unavailable Support Name Relationship Address Phone LUIS MANUEL HOUGH MD Caregiver [address] [place] [address] [place] [address] FELECIA GALLAGHER MD Caregiver [facility] [address] [address] [place] [phone] REYES PEPE MD Caregiver [address] [place] [address] [place] [phone] MARK[address]VE Next Of Kin [address] [place] [id number] CP Insurance Providers Payer Name Policy Number Subscriber Name Relationship [facility] Community Plan [id number] Yvette Aragon 19 Self Advance Directives Directive [...] 06 HOME HEALTH SERVICE Instructions/Education Provided [facility] Discharge Instructions Colon Cancer [...] F (96.8 - 99.1) Temperature (Calculated Celsius) 36.84552 degrees C (36.0 - 37.3) Pulse Rate [...] % L - Factor VII performed at [facility], [address] [place], [place] [address]Sfpadvq Director Marlena Cottrell MD Conjugated Bilirubin July [...] 329 mg/dL H - Haptoglobin performed at [facility], [address] [place], [place] [address]Sjrussw Director Marlena Cottrell MD Hematocrit April 20, [...] 06, 2014 6:54pm LAB TEST FORM REQUEST [id number] - Lactate Dehydrogenase April 06, 2014 10:40am [...] 20, 2014 4:45am 9.4 % H 0-9.0 DO-Lvz-Y-Type Natriuretic Peptide January 13, 2014 4:22am 160 [...] below - 10% Calcium carbonateTest Performed by: [place] [address] Client Services Account Manager: Lonny Franz M.D. Stone Analysis performed at [facility] [place], [address] [place] [address] Wood Calker Bob Cottrell MD Stone Source December 19, [...] IU/mL - Thyroglobulin Ab screen performed at [facility], [address] [place] [address] Wood Calker Marlena Cottrell MD Thyroid Stimulating Hormone (TSH) April 19, 2014 5:11am 127.00 MIU/L H 0.47-4.68 COMMENT Add on - blood already in lab Thyroperoxidase Antibody August 15, 2013 11:10pm <3 IU/mL - Thyroperoxidase Ab (TPO) performed at [facility], [address] [place] [address] Wood Calker Marlena Cottrell MD Thyroxine (T4) August 15, 2013 6:50pm 10.9 ug/dL - Thyroxine (T4) performed at [facility], [address] [place] [address] Wood Calker Marlena Cottrell MD Total Bilirubin April 20, [...] 92 ng/dL - T3 Total performed at [facility], [address] [place], [place] [address]Medical Director Marlena Cottrell MD Troponin I January [...] % - Eosinophil Count, Urine performed at [facility], [address] [place] [address] Wood Calker Marlena Cottrell MD Urine Glucose (UA) April [...] 366 mOsm/kg - Osmolality, Urine performed at [facility], [address] [place], [place] Wood Calker Marlena Cottrell MD Urine Protein April 14, [...] Has specimen been collected/obtained? Y Urine Specific [place] April 14, 2014 1:30pm 1.010 L - [...] 2011 5:55pm Name: YVETTE ARAGON Unit #: [id number] : 1965 Sex: F Loc / Sv: SRG DOS: 04/14/14 Signed Report #: [id number] DIAGNOSTIC IMAGING REPORT TYPE OF EXAM: SMALL BOWEL SERIES Dictated By: NORM PALMER MD Indication: ITS.REASON: Small bowel obstruction SMALL BOWEL SERIES: Comparison: Small bowel series dated February 27, 2014 Findings: Retail Field Representative radiograph of the abdomen was obtained demonstrating [...] PRESS WOUND TX </=50 CM completed 01/23/14 [id number]"ADHESIVE BORDER, EACH DRESSING" completed 01/23/14 NEG PRESS WOUND TX </=50 CM completed 01/30/14 [id number]"ADHESIVE BORDER, EACH DRESSING" completed 01/30/14 X-RAY EXAM OF ABDOMEN completed 01/29/14 NEG PRESS WOUND TX </=50 CM completed 02/06/14 [id number]"ADHESIVE BORDER, EACH DRESSING" completed 02/06/14 X-RAY EXAM OF ABDOMEN completed 02/05/14 RMVL DEVITAL TIS 20 CM/< completed 02/13/14 NEG PRESS WOUND TX </=50 CM completed 02/13/14 [id number]"ADHESIVE BORDER, EACH DRESSING" completed 02/13/14 X-RAY UPPER GI&SMALL INTEST completed 02/08/14 NEG PRESS WOUND TX </=50 CM completed 02/20/14 [id number]"ADHESIVE BORDER, EACH DRESSING" completed 02/20/14 NEG PRESS WOUND TX </=50 CM completed 02/23/14 [id number]"ADHESIVE BORDER, EACH DRESSING" completed 02/23/14 CT ABD & PELVIS W/O CONTRAST completed 02/27/14 X-RAY EXAM OF SMALL BOWEL completed 02/27/14 E&M LEVEL - FACILITY completed 03/06/14 CT THORAX W/DYE completed 03/08/14 CT ABD & PELV W/CONTRAST completed 03/08/14 [id number]"INFUSION, NORMAL SALINE SOLUTION , 250 CC" completed 03/08/14 [id number]"LOW OSMOLAR CONTRAST MATERIAL, 300-399 MG/ML IODINE C completed E&M LEVEL - FACILITY completed 03/21/14 PET IMAGE W/CT FULL BODY completed 03/14/14 [id number]"FLUORODEOXYGLUCOSE F-18 FDG, DIAGNOSTIC, PER STUDY DO completed RMVL DEVITAL TIS 20 CM/< completed 03/27/14 E&M LEVEL - FACILITY completed 04/03/14 US EXAM ABDO BACK WALL COMP completed 04/05/14 EXTREMITY STUDY completed 04/05/14 X-RAY EXAM OF ABDOMEN completed 04/06/14 Encounters Encounter Location Date/Time Discharged Inpatient [facility] 04/14/14 3:53pm Registered Clinic [facility] 04/06/14 12:16pm Registered [facility] 04/06/14 10:44am Registered [facility] 04/05/14 2:38pm Registered Clinic [facility] 04/05/14 11:53am Registered Clinic [facility] 04/03/14 1:49pm Registered Clinic [facility] 03/27/14 1:36pm Registered Clinic [facility] 03/21/14 1:39pm Registered Clinic [facility] 03/14/14 8:05am Registered Clinic [facility] 03/08/14 11:36am Registered Clinic [facility] 03/06/14 1:39pm Registered Clinic [facility] 02/27/14 8:22am Registered Clinic [facility] 02/23/14 9:06am Registered Clinic [facility] 02/20/14 1:59pm Registered Clinic [facility] 02/13/14 1:57pm Registered Clinic [facility] 02/08/14 12:26pm Registered Clinic [facility] 02/07/14 9:58am Registered Clinic [facility] 02/06/14 1:33pm Registered Clinic [facility] 02/05/14 10:21am Registered Clinic [facility] 01/30/14 1:30pm Registered Clinic [facility] 01/29/14 11:20am Registered Clinic [facility] 01/23/14 1:57pm Discharged [facility] 03/10/13 8:27am Recent Diagnosis UTI Hyperthyroidism History of malignant neoplasm of colorectal region Urinary tract infection Small bowel obstruction Hypothyroidism Protein-calorie malnutrition, mild Anemia Hx of Clostridium difficile infection HTN (hypertension) Anxiety and depression GERD (gastroesophageal reflux disease) Hypomagnesemia Hypokalemia Abdominal pain
[2016-05-16] MEDS ORDERED: CEFTRIAXONE 1 G in NORMAL SALINE 100 ML IV SCH (15:15)
[2016-05-16] MEDS ORDERED: FENTANYL 100MCG/HR PATCH TD SCH (18:00)
[2016-05-16] MEDS ORDERED: NORMAL SALINE 1,000 ML IV SCH (18:00)
--- NOTE | 2016-05-16 18:06 | HPPDOC ---
HPI - Adult Date DATE: 05/16/16 TIME: 17:57 General Chief Complaint: abdominal pain, nausea/vomiting/diarrhea History of Present Illness Yvette Barrett is a 50 year old female who presented to [facility] emergency department today, 05/16/16, for evaluation of severe abdominal pain, nausea, vomiting and diarrhea for the past 4 days. She reports that on 05/12/16 she started to have abdominal pain with nausea, vomiting and multiple bouts of diarrhea which persisted for the next few days. She also reports dark brown specs in her vomit with occasional red specks concerning for blood. She admits to a prior history of PUD but denies any current concerns. She states that her diarrhea has improved and no stools today. She also complains of dysuria. Her urologist is Dr. Egan in [place] whom she saw about 4-6 weeks ago. She denies any fevers, cough, congestion, chest pain or shortness of breath and states that she is chronically cold. Due to her persistent nausea, vomiting and diarrhea with abdominal pain, she presented to [facility] emergency room for further evaluation. Upon arrival her vitals signs revealed she was afebrile with temperature of 97.5, heart rate 78, respiratory rate 14, blood pressure 126 /82 and SAO2 99% on room air. Labs were obtained and showed leukopenia with WBC 4.2, anemia with hemoglobin 9.7, platelets 350 and severe hypokalemia with potassium 2.4. UA showed + nitrite, 50-200 WBC with 3+ bacteria. CT abdomen/ pelvis was obtained and was unremarkable. While in the ED, she was given Rocephin 1g IV for urinary pathogen coverage. Dr. Buck was contacted and she was accepted into observation status for further evaluation, IV hydration, IV antibiotics and IV potassium replacement. Her length of stay is not expected to exceed more than 2 over nights. On exam, she is resting in bed, watching TV and appears in no acute distress. She is alert and orientated x 3. She states that she is feeling much better and is tolerating clear liquids on exam. Cardiac exam reveals regular rate and rhythm and lungs are clear to auscultation. Abdomen is soft, mild diffuse tenderness with active bowel sounds. No edema noted.N/V intact. 2+ pedal pulses bilaterally. Past Medical History Past Medical History Patient's Medical History: (1) History of malignant neoplasm of colorectal region (2) Hx of Clostridium difficile infection (3) HTN (hypertension) (4) Anxiety and depression (5) VTE (venous thromboembolism) Onset Date: 04/26/2014 Permanent Comment: Last Edited By: Luz Montaño on May 16, 2016 18:01 (6) GERD (gastroesophageal reflux disease) (7) On anticoagulant therapy (8) Anemia (9) Narcotic dependence (10) Depression (11) Seasonal allergies (12) Colostomy in place (13) Hx of intestinal obstruction (14) Tobacco dependence (15) H/O nephrostomy (16) Hypothyroidism (17) Chronic abdominal pain (18) Chronic pain Surgical History Patient's Surgical History: [id number]. Rectal tumor [id number] Complete [id number] Bilateral nephrostomy tubes placed in 2014. Left nephrostomy removed beginning of 2015. Appendectomy Exploratory laparotomy Current Medications Home Meds Reported Medications Clonazepam (Clonazepam) 0.5 Mg Tablet, 0.5 MG PO BID Y for ANXIETY 05/16/16 Sertraline (Sertraline) 100 Mg Tablet, 100 MG PO BID 05/16/16 Oxycodone HCl/Acetaminophen (Oxycodone-Acetaminophen 5-325) 5-325 Tablet, 1 TAB PO Q6H Y for PAIN 02/07/16 Fluticasone Propionate (Fluticasone Prop 50 mcg/actuation Nasal [place]) 120 [place] /16 G [place], 1 SPRAY EA NOSTRIL DAILY 01/17/16 Fentanyl (Fentanyl 100 mcg/hr) 1 Each Patch.td72, 1 PATCH TD Q3DAY 07/29/15 Trazodone HCl (Trazodone HCl) 50 Mg Tablet, 100 MG PO HS Y for INSOMNIA 07/06/15 Levothyroxine Sodium (Synthroid) 75 Mcg Tablet, 75 MCG PO ACB 07/06/15 Omeprazole (Omeprazole) 20 Mg Capsule.dr, 20 MG PO DAILY 07/03/14 Gabapentin (Gabapentin) 300 Mg Capsule, 300 MG PO BID 11/20/13 Allergies: Coded Allergies: gentamicin (Verified Allergy, Unknown, FACIAL SWELLING, 05/16/16) Family History Family History: Motherdeceased from heart failure, diabetes Fathercoronary artery disease, [place] Sister - diabetes Brotheralive and well Social History Smoking Status: Current every day smoker Does patient use chewing tobac: No # of Packs/Tins per Day: 1 Second Hand Exposure: No Substance Use Type: does not use Alcohol Intake: none Marital Status: Single Current Occupational Status: unemployed Advance Directives: No DPOA for Healthcare Only Social History Comments PCP - Dr. Guzmán. Review of Systems Constitutional: REPORTS: chills, DENIES: appetite decrease, dizziness, fatigue , fever, syncope, weakness Eyes General: DENIES: photophobia Vision: DENIES: double vision ENMT Hearing: DENIES: hearing loss Sinuses: NOT FOUND: congestion Nose: FOUND: allergies Mouth/Throat: DENIES: sore throat ENMT Teeth: false teeth, missing teeth Cardiovascular DENIES: chest pain, dyspnea on exertion Rhythm/Rate: DENIES: irregular beat, palpitations, tachycardia Vascular: DENIES: pallor of an extremity, pedal edema, unilateral swelling Pulmonary Respiratory: DENIES: cough, dyspnea, pleuritic chest pain, pneumonia hx, sputum , tachypnea GI Upper Abdomen: heartburn/indigestion, hematemesis, nausea, pain, vomiting, DENIES: abdominal swelling, dysphagia, food intolerances Lower Abdomen: diarrhea, pain, DENIES: blood in stool General: dysuria, frequency, pain Musculoskeletal General: pain (chronic), DENIES: weakness Integumentary Skin: DENIES: rash Neurological General: DENIES: headache, numbness, seizures, syncope, vertigo Psychiatric Psychiatric: anxiety, depression Endocrine heat/cold intolerance Hematologic/Lymphatic anemia All Other Systems All Other Systems: Reviewed (remainder of 10-point ROS Neg.) Physical Exam General General Nourishment: thin, adult General Body Habitus: disheveled Vital Signs Vital Signs Date Time Temp Pulse Resp B/P Pulse Ox O2 Delivery O2 Flow Rate FiO2 05/16/16 15:40 14 05/16/16 15:11 97.7 68 133/89 100 Room Air Height (Feet): 5 Height (Inches): 3.00 Eyes Brief: FOUND: PERRL, NOT FOUND: scleral icterus ENMT Brief: FOUND: mucosa moist, NOT FOUND: normal dentition Neck Brief: FOUND: midline, NOT FOUND: nuchal rigidity, tracheal deviation Respiratory Inspection: NOT FOUND: accessory muscle use, audible stridor, audible wheezing , tachypnea Auscultation: FOUND: normal, NOT FOUND: rales, rhonchi, wheezes Breasts: FOUND: symmetric Cardiovascular Auscultation: FOUND: S1, S2, regular Murmur: FOUND: no murmur Peripheral Pulses: 2+: Carotid (L), Carotid (R), Dorasalis Pedis (L), Dorsalis Pedis (R) Edema: 0: Anasarca, Arm (L), Arm (R), Face, Leg (L), Leg (R) Abdomen Inspection: NOT FOUND: distention Palpation: FOUND: soft, tender, NOT FOUND: involuntary guarding, rebound, voluntary guarding Auscultation: FOUND: normo active Lymphatic (brief) Lymphatic Brief: NOT FOUND: lymphedema Musculoskeletal (brief) Musculoskeletal Brief: FOUND: extremities move equally, NOT FOUND: deformity, loss of motion Integumentary (brief) Integumentary Brief: FOUND: dry, pink, warm Comments afebrile Neurologic Mental Status: FOUND: alert RN Documented GCS Eye Opening: Verbal: Motor: Total: Cranial Nerves: FOUND: forehead movement, shoulder shrug, NOT FOUND: facial asymmetry Unusual Movements: NOT FOUND: tremor Sensation: FOUND: cold, soft touch Other Reflexes: FOUND: great toe movement Psychiatric (brief) FOUND: alert, attentive, oriented Psychiatric Attitude: FOUND: cooperative Laboratory Laboratory Tests Test 05/16/16 12:30 05/16/16 13:12 White Blood Count 4.2T/MM3 Red Blood Count 3.36M/MM3 Hemoglobin 9.7GM/DL Hematocrit 28.9% Mean Corpuscular Volume 86.0UM3 Mean Corpuscular Hemoglobin 28.9UUG Mean Corpuscular Hemoglobin Concent 33.6GM/DL RDW Standard Deviation 54.3FL Platelet Count 350T/MM3 Mean Platelet Volume 9.5UM3 Immature Granulocyte % (Auto) 0.5% Neutrophils (%) (Auto) 75.5% Lymphocytes (%) (Auto) 17.6% Monocytes (%) (Auto) 6.0% Eosinophils (%) (Auto) 0.2% Basophils (%) (Auto) 0.2% Absolute Immature Granulocyte (auto 0.02T/MM3 Absolute Neutrophils (auto) 3.2T/MM3 Absolute Lymphocytes (auto) 0.7T/MM3 Absolute Monocytes (auto) 0.3T/MM3 Absolute Eosinophils (auto) 0.0T/MM3 Absolute Basophils (auto) 0.0T/MM3 Turbidity < 20 Sodium Level 144MEQ/L Potassium Level 2.4MEQ/L Chloride Level 115MEQ/L Carbon Dioxide Level 20MEQ/L Anion Gap 9MEQ/L Blood Urea Nitrogen 14.0MG/DL Creatinine 1.5MG/DL Glomerular Filtration Rate Calc 37 BUN/Creatinine Ratio 9RATIO Glucose Level 113MG/DL Calculated Osmolality 279MOSM/KG Calcium Level 7.4MG/DL Total Bilirubin 0.70MG/DL Icterus Index < 2 Aspartate Amino Transf (AST/SGOT) 19U/L Alanine Aminotransferase (ALT/SGPT) 39U/L Alkaline Phosphatase 192U/L Total Protein 5.5G/DL Albumin 2.1G/DL Globulin 3.4G/DL Albumin/Globulin Ratio 0.6RATIO Lipase 31U/L Chemistry Specimen Hemolysis < 15 Urine Collection Type Cleancatch-midstream Urine Color Yellow Urine Turbidity Sl cloudy Urine pH 5.5 Urine Specific [place] 1.020 Urine Protein 1+ Urine Glucose (UA) Negative Urine Ketones Negative Urine Blood 2+ Urine Nitrite Positive Urine Bilirubin Negative Urine Urobilinogen 1.0EU/DL Urine Leukocyte Esterase 2+ Urine RBC 3-5/HPF Urine WBC 50-200/HPF Urine Squamous Epithelial Cells 0-5 Urine Bacteria 3+ Urine Yeast Trace Urine Culture Indicated Cult reflexed &setup Urine Test Negative Assessment & Plan Problems: (1) Urinary tract infection Status: Acute Assessment & Plan: present on admission - UA 50-200 WBC with 3+ bacteria and + nitrite. (2) Nausea & vomiting Status: Acute Qualifiers: Vomiting type: unspecified Vomiting Intractability: unspecified Qualified Codes: R11.2 - Nausea with vomiting, unspecified (3) Leukopenia Status: Acute Assessment & Plan: present on admission - 05/16/16 (WBC 4.2) (4) Hypokalemia Status: Acute Assessment & Plan: present on admission - 05/16/16 (K+ 2.4). (5) Chronic pain Status: Chronic (6) HTN (hypertension) Status: Chronic (7) Hypothyroidism Status: Chronic (8) Anxiety and depression Status: Chronic (9) GERD (gastroesophageal reflux disease) Status: Chronic (10) Narcotic dependence Status: Chronic (11) Tobacco dependence Status: Chronic (12) Hx of deep venous thrombosis Status: Resolved Assessment & Plan: 04/26/2014 (13) On anticoagulant therapy Status: Chronic Assessment & Plan: Xeralto. (14) Seasonal allergies Status: Chronic (15) History of malignant neoplasm of colorectal region Status: Resolved Assessment & Plan: s/p colon resection. Plan/Intensity of Service 05/16/16: [email or web address]. UTI with pyuria-acute (present on admission) * Admit under the care of Dr. Buck to observation status * Initiate Rocephin 1g IV daily for antimicrobial coverage of urinary pathogen - first dose given in ED. UA culture pending. Monitor sensitivities and adjust treatment as indicated. * Monitor urinary output as well as daily weights for signs of fluid overload. * NS 125cc/hr for hydration. Nausea/Vomiting-acute * Acute on chronic - continue Zofran for nausea/vomiting; clear liquid diet as tolerated. Leukopenia-acute (present on admission) * WBC 4.2 - recheck CBC in AM and monitor trends closely. Hypokalemia-acute (present on admission) * K+ 2.4 - KCL IV boluses x 4 initiated in ED. Recheck BMP at 2000 to monitor potassium and renal function. Monitor closely on telemetry. Chronic Pain * Continue home pain medications including Wyola and Fentanyl patch with Gabapentin. Monitor closely for signs of constipation. Will hold stool softeners in light of report of diarrhea. CT abdomen/pelvis showed no acute changes. If diarrhea persists, consider GI panel. Narcotic Dependence-chronic * Patient on multiple home narcotics for chronic pain. May be difficult to control pain while hospitalized. Caution with additional narcotic pain medications. Tobacco Dependence * Smoking cessation encouraged. Hypertension-chronic * No listed blood pressure medication on APR. Monitor blood pressure closely and treat as indicated. Hypothyroid-chronic * Will recheck TSH now in light of concerns of hyperthyroidism. Continue home Synthroid. Anxiety and Depression-chronic * Continue home Klonopin, Zoloft and Trazodone. History of DVT with chronic anticoagulation-resolved * Continue anticoagulation with Xeralto. Encourage ambulation as able and SCDs for DVT prophylaxis. GERD-chronic * Continue home Prilosec for GI protection and GERD. Seasonal Allergic Rhinitis-chronic * Continue home Flonase History of malignant neoplasm of the colorectal region-resolved. * Colostomy care Upon discharge, patient's care will be returned to her PCP, Dr. Guzmán. DVT Prophylaxis: SCD'S, Xarelto Code Status Full Code Hospital Course Summary Disclaimer The hospital course summary below is not to be considered part of the above Progress Note. Hospital Course Summary 05/16/16: [email or web address]. UTI with pyuria-acute (present on admission) * Admit under the care of Dr. Buck to observation status * Initiate Rocephin 1g IV daily for antimicrobial coverage of urinary pathogen - first dose given in ED. UA culture pending. Monitor sensitivities and adjust treatment as indicated. * Monitor urinary output as well as daily weights for signs of fluid overload. * NS 125cc/hr for hydration. Nausea/Vomiting-acute * Acute on chronic - continue Zofran for nausea/vomiting; clear liquid diet as tolerated. Leukopenia-acute (present on admission) * WBC 4.2 - recheck CBC in AM and monitor trends closely. Hypokalemia-acute (present on admission) * K+ 2.4 - KCL IV boluses x 4 initiated in ED. Recheck BMP at 2000 to monitor potassium and renal function. Monitor closely on telemetry. Chronic Pain * Continue home pain medications including [place] and Fentanyl patch with Gabapentin. Monitor closely for signs of constipation. Will hold stool softeners in light of report of diarrhea. CT abdomen/pelvis showed no acute changes. If diarrhea persists, consider GI panel. Narcotic Dependence-chronic * Patient on multiple home narcotics for chronic pain. May be difficult to control pain while hospitalized. Caution with additional narcotic pain medications. Tobacco Dependence * Smoking cessation encouraged. Hypertension-chronic * No listed blood pressure medication on APR. Monitor blood pressure closely and treat as indicated. Hypothyroid-chronic * Will recheck TSH now in light of concerns of hyperthyroidism. Continue home Synthroid. Anxiety and Depression-chronic * Continue home Klonopin, Zoloft and Trazodone. History of DVT with chronic anticoagulation-resolved * Continue anticoagulation with Xeralto. Encourage ambulation as able and SCDs for DVT prophylaxis. GERD-chronic * Continue home Prilosec for GI protection and GERD. Seasonal Allergic Rhinitis-chronic * Continue home Flonase History of malignant neoplasm of the colorectal region-resolved. * Colostomy care Upon discharge, patient's care will be returned to her PCP, Dr. Guzmán. LUZ MONTAÑO May 16, 2016 18:00
--- NOTE | 2016-05-16 18:06 | NUR ---
admit Pt to room at 1505 via cart. Pt ambulated well to bed. V/S taken and stable on RA. Urostomy bag very dirty looking, changed out for a new one, gave teaching on cleaning to reduce UTI possibilities. HX taken and made comfortable. IV potassium bolus' running, pt tolerating well. Pt ambulating well to bathroom, denies dizziness. Having dry heaves, no emesis.
[2016-05-16] MEDS: OXYCODONE/APAP 5mg/325mg TABLET PO PRN (18:27)
[2016-05-16] MEDS: ONDANSETRON 4mg/2ml INJECTION IV PRN (18:32)
--- NOTE | 2016-05-16 19:59 | NUR ---
meds Changed fentanyl patch admin to tomorrow 0800, this is the time pt would have put it on at home. N.O. to add phergan for N/V.
[2016-05-16 20:18] LABS: ANION GAP 7 MEQ/L (5-15); BUN/CREATININE RATIO 9 RATIO (6-26); CALCIUM 7.4 MG/DL (8.4-10.2); CHLORIDE 116 MEQ/L (98-107); CO2 - CARBON DIOXIDE 22 MEQ/L (22-30); CREATININE 1.5 MG/DL (0.7-1.2); GLOMERULAR FILTRATION RATE 37; GLUCOSE 113 MG/DL (65-110); SODIUM 145 MEQ/L (134-144)
[2016-05-16 20:32] LABS: POTASSIUM 2.7 MEQ/L (3.6-5)
--- NOTE | 2016-05-16 21:00 | NUR ---
STATUS PT POTASSIUM IS 2.7. TELE HOSPITALIST CONTACTED. HE GAVE AN ORDER FOR NS WITH 20 LCL AND ORAL POTASSIUM TABS. TABS STARTED TONIGHT AND SNACK GIVEN. PT EDUCATED ABOUT LOW POTASSIUM. WILL CONTINUE TO MONITOR.
[2016-05-16] MEDS: POTASSIUM CHLORIDE 20 MEQ TABLET PO SCH (21:01)
[2016-05-16] MEDS: NS KCL 20 MEQ 1,000 ML IV SCH (21:02)
[2016-05-16] MEDS: GABAPENTIN 300 MG CAPSULE PO SCH (21:35)
[2016-05-16] MEDS: SERTRALINE 100 MG TABLET PO SCH (21:35)
[2016-05-17] MEDS: OXYCODONE/APAP 5mg/325mg TABLET PO PRN ×5 (00:37→23:34)
[2016-05-17 00:38] VITALS: BP 133/84; PULSE 69; RESP 20; TEMP 97.6; O2SAT 100
[2016-05-17] MEDS: ONDANSETRON 4mg/2ml INJECTION IV PRN (00:38)
--- NOTE | 2016-05-17 00:40 | NUR ---
PRN PT WAS GIVEN PAIN MEDICATION FOR 8/10 PAIN. AMBULATED SELF TO THE BATHROOM. WILL CONTINUE TO MONITOR.
[2016-05-17] MEDS: NS KCL 20 MEQ 1,000 ML IV SCH ×3 (05:15→23:35)
[2016-05-17 05:40] LABS: ANION GAP 5 MEQ/L (5-15); BUN/CREATININE RATIO 9 RATIO (6-26); CALCIUM 7.1 MG/DL (8.4-10.2); CHLORIDE 118 MEQ/L (98-107); CO2 - CARBON DIOXIDE 19 MEQ/L (22-30); CREATININE 1.4 MG/DL (0.7-1.2); GLOMERULAR FILTRATION RATE 40; GLUCOSE 92 MG/DL (65-110); POTASSIUM 3.5 MEQ/L (3.6-5); SODIUM 142 MEQ/L (134-144)
[2016-05-17 05:42] LABS: BASOPHILS % (AUTO) 0.3 % (0-2); EOSINOPHILS # (AUTO) 0.1 T/MM3 (0-0.5); EOSINOPHILS % (AUTO) 1.3 % (0-4); HCT - HEMATOCRIT 25.9 % (36-46); HGB - HEMOGLOBIN 8.6 GM/DL (12-16); IMMATURE GRANULOCYTE # (AUTO) 0.01 T/MM3 (0.00-0.03); IMMATURE GRANULOCYTE % (AUTO) 0.3 % (0.0-0.5); LYMPHOCYTES # (AUTO) 0.8 T/MM3 (1-4.8); LYMPHOCYTES % (AUTO) 21.7 % (23-45); MEAN CORPUSCULAR HGB 29.1 UUG (26-34); MEAN CORPUSCULAR HGB CONC(MCHC 33.2 GM/DL (31-37); MEAN CORPUSCULAR VOLUME 87.5 UM3 (80-100); MEAN PLATELET VOLUME 10.6 UM3 (9.4-12.4); MONOCYTES # (AUTO) 0.3 T/MM3 (0-0.8); MONOCYTES % (AUTO) 7.8 % (0-9.0); NEUTROPHILS #(AUTO)-ABSOLUTE 2.6 T/MM3 (1.8-7.7); NEUTROPHILS % (AUTO) 68.6 % (33-66); RED BLOOD COUNT 2.96 M/MM3 (4.00-5.20); WBC - WHITE BLOOD COUNT 3.8 T/MM3 (4.5-11.0)
[2016-05-17] MEDS: OMEPRAZOLE 20 MG CAPSULE PO SCH (06:37)
[2016-05-17] MEDS: LEVOTHYROXINE 75 MCG TABLET PO SCH (06:37)
--- NOTE | 2016-05-17 06:40 | NUR ---
SUMMARY PT A&O X3. WAS GIVEN PAIN MEDICATION FOR 08/31 PAIN THIS AM. CONTINUES ON IF FLUIDS THAT SHE TOLERATES WELL. PT POTASSIUM 3.5 THIS AM. HAS BEEN TO THE BATHROOM SEVERAL TIMES THIS SHIFT. OSTOMY AND ILEOSTOMY INTACT. SON IN ROOM ALL NIGHT. EDUCATED ABOUT CALL LIGHT USE AND PT SAFETY.
[2016-05-17 07:54] VITALS: BP 142/91; PULSE 69; RESP 16; TEMP 97.7; O2SAT 99
[2016-05-17] MEDS: PROMETHAZINE 25 MG INJECTION IV PRN ×2 (08:49→09:41)
--- NOTE | 2016-05-17 09:17 | DI ---
Indication: ITS.REASON: vomiting PROCEDURE: CT ABD/PELVIS W/O CONTRAST: Encounter: Initial Comparison: CT abdomen and pelvis dated March 05, 2016 Technique: Axial CT images were performed through the abdomen and pelvis without intravenous contrast. Coronal and sagittal two-dimensional reformats. Automated Exposure Control and Iterative Reconstruction dose reducing techniques were utilized. Findings: The lung bases are clear. Diffuse fatty infiltration of the liver has significantly worsened from the comparison study. No contour deforming hepatic mass. The gallbladder is unremarkable. The spleen is grossly normal. Pancreas is stable with atrophy and diffuse calcifications. Right percutaneous nephrostomy tube in place with a large stone in the right renal pelvis. Left kidney shows worsening hydronephrosis with a prominent lower pole stone and a left-sided double-J stent in place. No evidence of a small bowel obstruction. 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 Mild free fluid. Chronic inflammatory change in the lower pelvis and presacral region. No abnormally dilated small bowel loops currently. Prior bowel anastomoses identified. Candidate appendix appears normal. Impression: 1. Worsening left hydronephrosis. Recommend correlation with stent function. Urologic consultation and stent exchange may be helpful. 2. Significant interval worsening in hepatic steatosis. There is a preliminary report by [facility]. .
[2016-05-17] MEDS: SERTRALINE 100 MG TABLET PO SCH ×2 (09:23→21:26)
[2016-05-17] MEDS: FLUTICASONE NASAL SPRAY 50 MCG EA NOSTRIL SCH (09:24)
[2016-05-17] MEDS: GABAPENTIN 300 MG CAPSULE PO SCH ×2 (09:24→21:26)
[2016-05-17] MEDS: CEFTRIAXONE 1 G in NORMAL SALINE 100 ML IV SCH (09:24)
[2016-05-17] MEDS: FENTANYL 100MCG/HR PATCH TD SCH (09:25)
[2016-05-17] MEDS: FENTANYL PATCH REMOVAL TD SCH (09:32)
[2016-05-17] MEDS: POTASSIUM CHLORIDE 20 MEQ TABLET PO SCH (11:36)
--- NOTE | 2016-05-17 12:03 | PNPDOC ---
CHANDLERJUSTUS Ino TEACHER'S AIDE 05/17/16 1150: Subjective Date DATE: 05/17/16 TIME: 11:47 Subjective Yvette is seen today in follow up. She reports ongoing pain that is not well controlled. States that "I take more than this (medication) at home." It appears that we have restarted her normal home medications on admission. She reports normal stool. Would like to advance diet to full liquids- denies N/ V. Hungry. Lab is reviewed. Potassium is slowly improving. Objective Vital Signs Vital signs Vital Signs Date Time Temp Pulse Resp B/P Pulse Ox O2 Delivery O2 Flow Rate FiO2 05/17/16 07:54 97.7 69 16 142/91 99 Room Air Height (Feet): 5 Height (Inches): 3.00 Weight (Kilograms): 56.800 General General Appearance: Alert, Orientated x 3, Cooperative, No Acute Distress Comments Thin. Smells of cigarette smoke. Eyes (Brief) Eyes: FOUND: EOMI, PERRL, NOT FOUND: foreign body, scleral icterus ENMT (Brief) ENMT: FOUND: mucosa moist Neck (Brief) Neck: FOUND: midline, NOT FOUND: JVD, nuchal rigidity, spasm Respiratory (Brief) Respiratory: FOUND: clear all rodriguez, equal bilaterally, symmetrical, NOT FOUND : rales, wheezes Cardiovascular (Brief) Cardiac: FOUND: regular rate, NOT FOUND: murmur, pedal edema, regular rhythm Comments Does have occasional pause on ausc. Abdomen (Brief) Abdominal: FOUND: soft, NOT FOUND: distended, tender Comments Reports tenderness at ostomy site. Hypoactive BS. Extremities (Brief) Extremity : Extremity Finding: NOT FOUND: edema Laboratory Laboratory Laboratory Tests 05/16/16 12:30 05/16/16 19:55 05/17/16 04:00 Laboratory Tests 05/16/16 12:30 05/17/16 04:00 Microbiology Microbiology Microbiology Date/Time Source Procedure Growth Status 05/16/16 13:29 Urine, Clean Catch-Midstream Urine Culture - Preliminary Gram Negative Brock Resulted Radiology CT Impression: 1. Worsening left hydronephrosis. Recommend correlation with stent function. Urologic consultation and stent exchange may be helpful. 2. Significant interval worsening in hepatic steatosis. Sepsis Diagnostic Criteria Sepsis Confirmed/Suspected Infection: Yes Assessment & Plan Problems: (1) Urinary tract infection Status: Acute Assessment & Plan: present on admission - UA 50-200 WBC with 3+ bacteria and + nitrite. Past cultures are reviewed. (2) Nausea & vomiting Status: Acute Qualifiers: Vomiting type: unspecified Vomiting Intractability: unspecified Qualified Codes: R11.2 - Nausea with vomiting, unspecified (3) Leukopenia Status: Acute Assessment & Plan: present on admission - 05/16/16 (WBC 4.2) (4) Hypokalemia Status: Acute Assessment & Plan: present on admission - 05/16/16 (K+ 2.4). (5) Chronic pain Status: Chronic (6) HTN (hypertension) Status: Chronic (7) Hypothyroidism Status: Chronic (8) Anxiety and depression Status: Chronic (9) GERD (gastroesophageal reflux disease) Status: Chronic (10) Narcotic dependence Status: Chronic (11) Tobacco dependence Status: Chronic (12) Hx of deep venous thrombosis Status: Resolved Assessment & Plan: 04/26/2014 (13) On anticoagulant therapy Status: Chronic Assessment & Plan: Xarelto (14) Seasonal allergies Status: Chronic (15) History of malignant neoplasm of colorectal region Status: Resolved Assessment & Plan: s/p colon resection. (16) Ureteral stent retained Status: Chronic Assessment & Plan: Follows with Dr. Edwards. (17) Hydronephrosis Status: Acute Plan/Intensity of Service 05/17/16- Chandler *UTI- Hx of polyorganism infection Continue Ceftriaxone. +GNR, await final culture. Prior cultures reviewed. Hx of renal stent with concern for worsening hydronephrosis, stent occlusion. Dr. Bennett has seen patient in the past-- will consult to evaluate. She is fairly asymptomatic. *Recent diarrhea, GI upset- Improved. ADAT. Continue IVF. Slowly advance diet as tolerated. *Hypokalemia- Continue replacement via IVF and oral. Will decrease oral replacement to BID. Assess Inz Calcium given low Calcium (low albumin). May need to replace. Mag ok. *Cardiac ectopy- continue tele as we normalize electrolytes. *Hx of rectal cancer with ostomy- supportive care. *Hx of DVT- Restart home Xarelto after we confirm dose. *Acute on chronic pain- will increase PRN percocet to Q 4 hours PRN pain. Leave remainder of meds alone. She will need at least another 24 hours of close monitoring and electrolyte replacement. Ongoing IV fluid, electrolyte replacement and IV antibiotics. Needs urology consult. Change to inpatient status due to ongoing care needs. DVT Prophylaxis: Xarelto Code Status Full Code Hospital Course Summary Disclaimer The hospital course summary below is not to be considered part of the above Progress Note. Hospital Course Summary 05/16/16: Roxan.ADMIT. UTI with pyuria-acute (present on admission) * Admit under the care of Dr. Buck to observation status * Initiate Rocephin 1g IV daily for antimicrobial coverage of urinary pathogen - first dose given in ED. UA culture pending. Monitor sensitivities and adjust treatment as indicated. * Monitor urinary output as well as daily weights for signs of fluid overload. * NS 125cc/hr for hydration. Nausea/Vomiting-acute * Acute on chronic - continue Zofran for nausea/vomiting; clear liquid diet as tolerated. Leukopenia-acute (present on admission) * WBC 4.2 - recheck CBC in AM and monitor trends closely. Hypokalemia-acute (present on admission) * K+ 2.4 - KCL IV boluses x 4 initiated in ED. Recheck BMP at 2000 to monitor potassium and renal function. Monitor closely on telemetry. Chronic Pain * Continue home pain medications including [place] and Fentanyl patch with Gabapentin. Monitor closely for signs of constipation. Will hold stool softeners in light of report of diarrhea. CT abdomen/pelvis showed no acute changes. If diarrhea persists, consider GI panel. Narcotic Dependence-chronic * Patient on multiple home narcotics for chronic pain. May be difficult to control pain while hospitalized. Caution with additional narcotic pain medications. Tobacco Dependence * Smoking cessation encouraged. Hypertension-chronic * No listed blood pressure medication on APR. Monitor blood pressure closely and treat as indicated. Hypothyroid-chronic * Will recheck TSH now in light of concerns of hyperthyroidism. Continue home Synthroid. Anxiety and Depression-chronic * Continue home Klonopin, Zoloft and Trazodone. History of DVT with chronic anticoagulation-resolved * Continue anticoagulation with Xeralto. Encourage ambulation as able and SCDs for DVT prophylaxis. GERD-chronic * Continue home Prilosec for GI protection and GERD. Seasonal Allergic Rhinitis-chronic * Continue home Flonase History of malignant neoplasm of the colorectal region-resolved. * Colostomy care Upon discharge, patient's care will be returned to her PCP, Dr. Guzmán. 05/17/16- Chandler *UTI- Hx of polyorganism infection Continue Ceftriaxone. +GNR, await final culture. Prior cultures reviewed. Hx of renal stent with concern for worsening hydronephrosis, stent occlusion. Dr. Bennett has seen patient in the past-- will consult to evaluate. She is fairly asymptomatic. *Recent diarrhea, GI upset- Improved. ADAT. Continue IVF. Slowly advance diet as tolerated. *Hypokalemia- Continue replacement via IVF and oral. Will decrease oral replacement to BID. Assess Inz Calcium given low Calcium (low albumin). May need to replace. Mag ok. *Cardiac ectopy- continue tele as we normalize electrolytes. *Hx of rectal cancer with ostomy- supportive care. *Hx of DVT- xarelto. (confirm dose). *Acute on chronic pain- will increase PRN percocet to Q 4 hours PRN pain. Leave remainder of meds alone. She will need at least another 24 hours of close monitoring and electrolyte replacement. Ongoing IV fluid, electrolyte replacement and IV antibiotics. Needs urology consult. Change to inpatient status due to ongoing care needs. REGINE BUCK DO 05/17/16 1736: Assessment & Plan Plan/Intensity of Service 05/17/2016 Heber: I saw iKnga Martínez today after she was seen by regina and she was in high spirits and was feeling much better than yesterday. She denies shortness of breath. She denied chest pain or palpitations. She denied current abdominal pain or emesis. She denied any current nausea. He did not complain of any lack of pain control medicine. Her lungs were clear to auscultation bilaterally. Heart showed regular rate and rhythm without murmur. Abdomen was soft bowel sounds are present. Extremities show no clubbing or cyanosis and no edema. I have read the nurse practitioner note in full and agree with the assessment and plan. This patient will have a urological consult tomorrow and will also have some repeat lab work which should help define how well we are controlling the end eradicated in the urinary tract infection. Her potassium has come up to a normal level we do still however have concern for the left-sided hydronephrosis which creates some question as to the ability of her urological stent her Xarelto has been restarted and I will probably discontinue the IV potassium tomorrow morning. JUSTUS NAVARRO APRN May 17, 2016 11:50 REGINE BUCK DO May 17, 2016 17:36
[2016-05-17] MEDS: PROMETHAZINE 6.25 MG/5 ML PO PRN (15:04)
[2016-05-17 15:31] LABS: ALBUMIN 2.2 G/DL (3.5-5.0); ANION GAP 10 MEQ/L (5-15); BUN/CREATININE RATIO 7 RATIO (6-26); CALCIUM 7.4 MG/DL (8.4-10.2); CHLORIDE 119 MEQ/L (98-107); CO2 - CARBON DIOXIDE 15 MEQ/L (22-30); CREATININE 1.5 MG/DL (0.7-1.2); GLOMERULAR FILTRATION RATE 37; GLUCOSE 109 MG/DL (65-110); PHOSPHORUS 2.1 MG/DL (2.5-4.5); POTASSIUM 3.9 MEQ/L (3.6-5); SODIUM 144 MEQ/L (134-144)
[2016-05-17 16:50] VITALS: BP 141/90; PULSE 90; RESP 16; TEMP 96; O2SAT 95
[2016-05-17] MEDS: CLONAZEPAM 0.5 MG TABLET PO PRN (16:59)
[2016-05-17] MEDS: RIVAROXABAN 20 MG TABLET PO SCH (16:59)
[2016-05-17] MEDS ORDERED: POTASSIUM CHLORIDE 20 MEQ TABLET PO SCH (17:30)
[2016-05-17] MEDS: NICOTINE 14 MG PATCH TD SCH (17:47)
--- NOTE | 2016-05-17 18:09 | NUR ---
status Pt A/o x3, V/S stable on RA. Pt ambulating well around unit, denies dizziness or SOA. Pt rating pain 6-8/10, PRN pain meds given 2xs, no signs of distress but pt calls before time due for next dose available. Diet advanced to full liq and pt tolerating, no N/V noted, pt stated mild abd discomfort 1 time. Pt empties both her colostomy and urostomy bags, will call if needs help. Pt requested nicotine patch, N.O. received and put on tonight.
[2016-05-18 00:01] VITALS: BP 126/85; PULSE 64; RESP 12; TEMP 96.5; O2SAT 100
--- NOTE | 2016-05-18 00:19 | NUR ---
PRN PT WAS GIVEN PAIN MEDICATION FOR ABDOMINAL PAIN PER HER REQUEST. PT A&OX3. WATCHING TV AT THE MOMENT. SON AT BEDSIDE. EDUCATED ABT CALL LIGHT USE AND SAFETY.
[2016-05-18 05:16] LABS: BASOPHILS % (AUTO) 0.2 % (0-2); EOSINOPHILS # (AUTO) 0.1 T/MM3 (0-0.5); EOSINOPHILS % (AUTO) 1.9 % (0-4); HCT - HEMATOCRIT 29.7 % (36-46); HGB - HEMOGLOBIN 9.3 GM/DL (12-16); IMMATURE GRANULOCYTE # (AUTO) 0.02 T/MM3 (0.00-0.03); IMMATURE GRANULOCYTE % (AUTO) 0.4 % (0.0-0.5); LYMPHOCYTES # (AUTO) 1.1 T/MM3 (1-4.8); LYMPHOCYTES % (AUTO) 24.6 % (23-45); MEAN CORPUSCULAR HGB CONC(MCHC 31.3 GM/DL (31-37); MEAN CORPUSCULAR VOLUME 92.5 UM3 (80-100); MEAN PLATELET VOLUME 10.2 UM3 (9.4-12.4); MONOCYTES # (AUTO) 0.4 T/MM3 (0-0.8); MONOCYTES % (AUTO) 7.6 % (0-9.0); NEUTROPHILS % (AUTO) 65.3 % (33-66); RED BLOOD COUNT 3.21 M/MM3 (4.00-5.20); WBC - WHITE BLOOD COUNT 4.6 T/MM3 (4.5-11.0)
[2016-05-18] MEDS: LEVOTHYROXINE 75 MCG TABLET PO SCH (05:46)
[2016-05-18] MEDS: OMEPRAZOLE 20 MG CAPSULE PO SCH (05:46)
[2016-05-18] MEDS: OXYCODONE/APAP 5mg/325mg TABLET PO PRN ×2 (05:47→10:32)
[2016-05-18 06:09] LABS: ANION GAP 5 MEQ/L (5-15); BUN/CREATININE RATIO 6 RATIO (6-26); CALCIUM 7.6 MG/DL (8.4-10.2); CHLORIDE 122 MEQ/L (98-107); CO2 - CARBON DIOXIDE 16 MEQ/L (22-30); CREATININE 1.4 MG/DL (0.7-1.2); GLOMERULAR FILTRATION RATE 40; GLUCOSE 83 MG/DL (65-110); MAGNESIUM 1.7 MG/DL (1.6-2.3); PHOSPHORUS 1.9 MG/DL (2.5-4.5); POTASSIUM 5.2 MEQ/L (3.6-5); SODIUM 143 MEQ/L (134-144)
[2016-05-18 07:48] VITALS: BP 145/90; PULSE 68; RESP 18; TEMP 96.3; O2SAT 99
[2016-05-18] MEDS: PROMETHAZINE 6.25 MG/5 ML PO PRN ×3 (07:50→20:27)
[2016-05-18 07:51] VITALS: PULSE 68; RESP 18
--- NOTE | 2016-05-18 07:55 | NUR ---
SUMMARY PT WAS GIVEN PAIN MEDICATION FOR ABDOMINAL PAIN TWICE THIS SHIFT. PT ALERT AND ORIENTED. ABLE TO VOICE NEEDS TO THE STAFFS. AMBULATES TO THE BATHROOM BY HERSELF. PT ON CLEAR LIQUIDS THAT IS BEING ADVANCED TOLERATED. SLEPT WELL THIS SHIFT. ILEOSTOMY AND COLOSTOMY INTACT.
[2016-05-18] MEDS: NORMAL SALINE 1,000 ML IV SCH ×2 (08:24→18:43)
--- NOTE | 2016-05-18 09:06 | CONSPD ---
Consultation Info Date DATE: 05/18/16 TIME: 09:00 Date of Consultation: May 18, 2016 Attending Physician: Heber Reason for Consultation: left hydro HPI - Adult Date DATE: 05/18/16 TIME: 09:00 General Chief Complaint: abdominal pain, nausea/vomiting/diarrhea History of Present Illness Yvette Barrett is a 50 year old female Presented to [facility] [place] with nausea, vomiting, diarrhea, abdominal pain, hypokalemia Of note she has hs coorectal cancer s/p colostomy, chemo and radiaiton in ~ 2013. Known hisotry of hydronephrosis and kidney stones, followed by Dr Valenzuela, but she really does not understnad what has happened in the past. It sounds like she had bilateral PCNL in the past. has right neph tube and left stent, that they think was changed in Nov 2015. some left flank pain. + dysuria. Past Medical History Past Medical History Patient's Medical History: (1) History of malignant neoplasm of colorectal region (2) Hx of Clostridium difficile infection (3) HTN (hypertension) (4) Anxiety and depression (5) VTE (venous thromboembolism) Onset Date: 04/26/2014 Permanent Comment: Last Edited By: Yolande Montaño on May 16, 2016 18:01 (6) GERD (gastroesophageal reflux disease) (7) On anticoagulant therapy (8) Anemia (9) Narcotic dependence (10) Depression (11) Seasonal allergies (12) Colostomy in place (13) Hx of intestinal obstruction (14) Tobacco dependence (15) H/O nephrostomy (16) Hypothyroidism (17) Chronic abdominal pain (18) Chronic pain Surgical History Patient's Surgical History: [id number]. Rectal tumor [id number] Complete [id number] Bilateral nephrostomy tubes placed in 2014. Left nephrostomy removed beginning of 2015. Appendectomy Exploratory laparotomy Current Medications Home Meds Reported Medications Clonazepam (Clonazepam) 0.5 Mg Tablet, 0.5 MG PO BID Y for ANXIETY 05/16/16 Sertraline (Sertraline) 100 Mg Tablet, 100 MG PO BID 05/16/16 Oxycodone HCl/Acetaminophen (Oxycodone-Acetaminophen 5-325) 5-325 Tablet, 1 TAB PO Q6H Y for PAIN 02/07/16 Fluticasone Propionate (Fluticasone Prop 50 mcg/actuation Nasal [place]) 120 [place] /16 G [place], 1 SPRAY EA NOSTRIL DAILY 01/17/16 Fentanyl (Fentanyl 100 mcg/hr) 1 Each Patch.td72, 1 PATCH TD Q3DAY 07/29/15 Trazodone HCl (Trazodone HCl) 50 Mg Tablet, 100 MG PO HS Y for INSOMNIA 07/06/15 Levothyroxine Sodium (Synthroid) 75 Mcg Tablet, 75 MCG PO ACB 07/06/15 Omeprazole (Omeprazole) 20 Mg Capsule.dr, 20 MG PO DAILY 07/03/14 Gabapentin (Gabapentin) 300 Mg Capsule, 300 MG PO BID 11/20/13 Allergies: Coded Allergies: gentamicin (Verified Allergy, Unknown, FACIAL SWELLING, 05/16/16) Family History Family History: Motherdeceased from heart failure, diabetes Fathercoronary artery disease, [place] Sister - diabetes Brotheralive and well Social History Smoking Status: Never smoker Does patient use chewing tobac: No # of Packs/Tins per Day: 1 Second Hand Exposure: No Substance Use Type: does not use Alcohol Intake: none Marital Status: Single Current Occupational Status: unemployed Advance Directives: No DPOA for Healthcare Only Review of Systems Constitutional: REPORTS: see HPI Physical Exam General General Nourishment: well developed, thin, cachectic Vital Signs Vital Signs Date Time Temp Pulse Resp B/P Pulse Ox O2 Delivery O2 Flow Rate FiO2 05/18/16 07:51 68 18 05/18/16 07:48 96.3 145/90 99 Room Air Height (Feet): 5 Height (Inches): 3.00 Eyes Brief: FOUND: PERRL ENMT Brief: FOUND: mucosa moist Respiratory Brief: FOUND: wheezes Cardiovascular (brief) Cardiac Brief: FOUND: regular rate Abdomen (brief) Abdominal Brief: FOUND: soft Neurologic RN Documented GCS Eye Opening: Verbal: Motor: Total: Laboratory Laboratory Tests Test 05/16/16 12:30 05/16/16 13:12 05/16/16 18:20 05/16/16 19:55 White Blood Count 4.2T/MM3 Red Blood Count 3.36M/MM3 Hemoglobin 9.7GM/DL Hematocrit 28.9% Mean Corpuscular Volume 86.0UM3 Mean Corpuscular Hemoglobin 28.9UUG Mean Corpuscular Hemoglobin Concent 33.6GM/DL RDW Standard Deviation 54.3FL Platelet Count 350T/MM3 Mean Platelet Volume 9.5UM3 Immature Granulocyte % (Auto) 0.5% Neutrophils (%) (Auto) 75.5% Lymphocytes (%) (Auto) 17.6% Monocytes (%) (Auto) 6.0% Eosinophils (%) (Auto) 0.2% Basophils (%) (Auto) 0.2% Absolute Immature Granulocyte (auto 0.02T/MM3 Absolute Neutrophils (auto) 3.2T/MM3 Absolute Lymphocytes (auto) 0.7T/MM3 Absolute Monocytes (auto) 0.3T/MM3 Absolute Eosinophils (auto) 0.0T/MM3 Absolute Basophils (auto) 0.0T/MM3 Turbidity < 20 < 20 Sodium Level 144MEQ/L 145MEQ/L Potassium Level 2.4MEQ/L 2.7MEQ/L Chloride Level 115MEQ/L 116MEQ/L Carbon Dioxide Level 20MEQ/L 22MEQ/L Anion Gap 9MEQ/L 7MEQ/L Blood Urea Nitrogen 14.0MG/DL 13.0MG/DL Creatinine 1.5MG/DL 1.5MG/DL Glomerular Filtration Rate Calc 37 37 BUN/Creatinine Ratio 9RATIO 9RATIO Glucose Level 113MG/DL 113MG/DL Calculated Osmolality 279MOSM/KG 280MOSM/KG Calcium Level 7.4MG/DL 7.4MG/DL Magnesium Level 1.9MG/DL Total Bilirubin 0.70MG/DL Icterus Index < 2 < 2 Aspartate Amino Transf (AST/SGOT) 19U/L Alanine Aminotransferase (ALT/SGPT) 39U/L Alkaline Phosphatase 192U/L Total Protein 5.5G/DL Albumin 2.1G/DL Globulin 3.4G/DL Albumin/Globulin Ratio 0.6RATIO Lipase 31U/L Chemistry Specimen Hemolysis < 15 < 15 Urine Collection Type Cleancatch-midstream Urine Color Yellow Urine Turbidity Sl cloudy Urine pH 5.5 Urine Specific [place] 1.020 Urine Protein 1+ Urine Glucose (UA) Negative Urine Ketones Negative Urine Blood 2+ Urine Nitrite Positive Urine Bilirubin Negative Urine Urobilinogen 1.0EU/DL Urine Leukocyte Esterase 2+ Urine RBC 3-5/HPF Urine WBC 50-200/HPF Urine Squamous Epithelial Cells 0-5 Urine Bacteria 3+ Urine Yeast Trace Urine Culture Indicated Cult reflexed &setup Urine Test Negative Thyroid Stimulating Hormone (TSH) 2.64MIU/L Test 05/17/16 04:00 05/17/16 15:12 05/18/16 04:23 05/18/16 08:00 White Blood Count 3.8T/MM3 4.6T/MM3 Red Blood Count 2.96M/MM3 3.21M/MM3 Hemoglobin 8.6GM/DL 9.3GM/DL Hematocrit 25.9% 29.7% Mean Corpuscular Volume 87.5UM3 92.5UM3 Mean Corpuscular Hemoglobin 29.1UUG 29.0UUG Mean Corpuscular Hemoglobin Concent 33.2GM/DL 31.3GM/DL RDW Standard Deviation 57.5FL 66.0FL Platelet Count 271T/MM3 266T/MM3 Mean Platelet Volume 10.6UM3 10.2UM3 Immature Granulocyte % (Auto) 0.3% 0.4% Neutrophils (%) (Auto) 68.6% 65.3% Lymphocytes (%) (Auto) 21.7% 24.6% Monocytes (%) (Auto) 7.8% 7.6% Eosinophils (%) (Auto) 1.3% 1.9% Basophils (%) (Auto) 0.3% 0.2% Absolute Immature Granulocyte (auto 0.01T/MM3 0.02T/MM3 Absolute Neutrophils (auto) 2.6T/MM3 3.0T/MM3 Absolute Lymphocytes (auto) 0.8T/MM3 1.1T/MM3 Absolute Monocytes (auto) 0.3T/MM3 0.4T/MM3 Absolute Eosinophils (auto) 0.1T/MM3 0.1T/MM3 Absolute Basophils (auto) 0.0T/MM3 0.0T/MM3 Turbidity < 20 < 20 < 20 Sodium Level 142MEQ/L 144MEQ/L 143MEQ/L Potassium Level 3.5MEQ/L 3.9MEQ/L 5.2MEQ/L Chloride Level 118MEQ/L 119MEQ/L 122MEQ/L Carbon Dioxide Level 19MEQ/L 15MEQ/L 16MEQ/L Anion Gap 5MEQ/L 10MEQ/L 5MEQ/L Blood Urea Nitrogen 13.0MG/DL 11.0MG/DL 9.0MG/DL Creatinine 1.4MG/DL 1.5MG/DL 1.4MG/DL Glomerular Filtration Rate Calc 40 37 40 BUN/Creatinine Ratio 9RATIO 7RATIO 6RATIO Glucose Level 92MG/DL 109MG/DL 83MG/DL Calculated Osmolality 273MOSM/KG 277MOSM/KG 273MOSM/KG Calcium Level 7.1MG/DL 7.4MG/DL 7.6MG/DL Icterus Index < 2 < 2 < 2 Chemistry Specimen Hemolysis 40 44 43 Ionized Calcium (Measured) 1.14MMOL/L Phosphorus Level 2.1MG/DL 1.9MG/DL Albumin 2.2G/DL 2.0G/DL Magnesium Level 1.7MG/DL Impression/Recommendation Impression left hydro, left stent right indwelling NT, right renal stone Recommendation recommend cysto. left retrograde, left stent change tmrw JEREMIAH FALCON May 18, 2016 09:04
[2016-05-18 09:14] LABS: BLOOD, URINE 2+ (NEGATIVE); COLOR,URINE YELLOW (YELLOW); LEUKOCYTE ESTERASE ,URINE 3+ (NEGATIVE); NITRITE,URINE POSITIVE (NEGATIVE); UROBILINOGEN,URINE 0.2 EU/DL (NORMAL)
[2016-05-18] MEDS: CEFTRIAXONE 1 G in NORMAL SALINE 100 ML IV SCH (09:24)
[2016-05-18] MEDS: SERTRALINE 100 MG TABLET PO SCH ×2 (09:24→20:27)
[2016-05-18] MEDS: GABAPENTIN 300 MG CAPSULE PO SCH ×2 (09:24→20:27)
[2016-05-18] MEDS: FLUTICASONE NASAL SPRAY 50 MCG EA NOSTRIL SCH (09:25)
[2016-05-18] MEDS: NICOTINE PATCH REMOVAL TD SCH (09:26)
[2016-05-18] MEDS: NICOTINE 14 MG PATCH TD SCH (09:26)
[2016-05-18 09:27] LABS: BACTERIA,URINE 2+ (NEGATIVE); SQUAMOUS EPITHELIAL CELL,UR 0-5
--- NOTE | 2016-05-18 09:29 | NUR ---
FARHAN OLIVERA IS 12. MONITOR FOR [employer]P. Addendum: 05/18/16 at 0930 by HAMILTON KLEIN Amended: Links added.
--- NOTE | 2016-05-18 10:08 | PNPDOC ---
LINDA ABAD V TELEVISION CAMERA OPERATOR 05/18/16 1004: Subjective Date DATE: 05/18/16 TIME: 10:01 Subjective Yvette reports that she continues to have intermittent nausea today, however she was able to completely [place] liquid diet breakfast and does request to advance diet at lunch. Dates that overall pain in her abdomen is less than today. Unfortunately noted to be positive for C. difficile. Repeat urine this morning does show 2+ blood, positive nitrates, 3+ leukocyte esterase, 5-10 RBCs , 10-20 WBCs and 2+ bacteria. Objective Vital Signs Vital signs Vital Signs Date Time Temp Pulse Resp B/P Pulse Ox O2 Delivery O2 Flow Rate FiO2 05/18/16 07:51 68 18 05/18/16 07:48 96.3 145/90 99 Room Air Height (Feet): 5 Height (Inches): 3.00 Weight (Kilograms): 56.800 General General Appearance: Alert, Orientated x 3, Cooperative, No Acute Distress Eyes (Brief) Eyes: FOUND: EOMI ENMT (Brief) ENMT: FOUND: mucosa moist, normal dentition, NOT FOUND: pharnyx erythema Neck (Brief) Neck: FOUND: midline, NOT FOUND: adenopathy, carotid bruits, tracheal deviation Respiratory (Brief) Respiratory: FOUND: clear all rodriguez, equal bilaterally, NOT FOUND: wheezes Cardiovascular (Brief) Cardiac: FOUND: regular rate, regular rhythm, NOT FOUND: murmur, pedal edema Capillary Refill: <2 sec Abdomen (Brief) Abdominal: FOUND: BS normo active x4, soft, NOT FOUND: distended, tender Lymphatic (Brief) Lymphatic: NOT FOUND: adenopathy Musculoskeletal (Brief) Musculoskeletal: NOT FOUND: tenderness Integumentary (Brief) Integumentary: FOUND: dry, pink, warm Neurologic (Brief) Neurological: FOUND: cranial 2-12 intact Psychiatric (Brief) Psychiatric: FOUND: alert, attentive, normal affect, oriented Laboratory Laboratory Laboratory Tests 05/16/16 12:30 05/16/16 19:55 05/17/16 04:00 05/17/16 15:12 05/18/16 04:23 Laboratory Tests 05/16/16 12:30 05/17/16 04:00 05/18/16 04:23 Microbiology Microbiology Microbiology Date/Time Source Procedure Growth Status 05/18/16 09:29 Not Provided Urine Culture - Preliminary CULTURE INITIATED - RESULTS PENDING Resulted 05/16/16 13:29 Urine, Clean Catch-Midstream Urine Culture - Preliminary Klebsiella Pneumo Ssp Pneumo Gram Positive Cocci Resulted Sepsis Diagnostic Criteria Sepsis Confirmed/Suspected Infection: Yes Assessment & Plan Problems: (1) Urinary tract infection Status: Acute Assessment & Plan: present on admission - UA 50-200 WBC with 3+ bacteria and + nitrite. Past cultures are reviewed. (2) Nausea & vomiting Status: Acute Qualifiers: Vomiting type: unspecified Vomiting Intractability: unspecified Qualified Codes: R11.2 - Nausea with vomiting, unspecified (3) Leukopenia Status: Acute Assessment & Plan: present on admission - 05/16/16 (WBC 4.2) (4) Hypokalemia Status: Acute Assessment & Plan: present on admission - 05/16/16 (K+ 2.4). (5) Chronic pain Status: Chronic (6) HTN (hypertension) Status: Chronic (7) Hypothyroidism Status: Chronic (8) Anxiety and depression Status: Chronic (9) GERD (gastroesophageal reflux disease) Status: Chronic (10) Narcotic dependence Status: Chronic (11) Tobacco dependence Status: Chronic (12) Hx of deep venous thrombosis Status: Resolved Assessment & Plan: 04/26/2014 (13) On anticoagulant therapy Status: Chronic Assessment & Plan: Xarelto (14) Seasonal allergies Status: Chronic (15) History of malignant neoplasm of colorectal region Status: Resolved Assessment & Plan: s/p colon resection. (16) Ureteral stent retained Status: Chronic Assessment & Plan: Follows with Dr. Edwards. (17) Hydronephrosis Status: Acute (18) C. difficile diarrhea Assessment & Plan: Started Flagyl 05/18 Plan/Intensity of Service 05/18/16 Unfortunately, patient was positive for C. difficile this morning. Will place patient in contact precautions and start oral Flagyl She was seen by Dr. Patel urologist this morning who recommends left stent change tomorrow. Patient did receive 1 dose of Xarelto last evening. Will have to speak further with Dr. Patel if this will influence procedure tomorrow. Xarelto held for now. Will continue with clear liquid diet for now as she continues to have intermittent nausea. Potassium this morning is elevated at 5.2, phosphorus is low at 1.9 Creatinine remains stable at 1.4 Discuss further plan of care with Dr. Buck Code Status Full Code Hospital Course Summary Disclaimer The hospital course summary below is not to be considered part of the above Progress Note. Hospital Course Summary 05/16/16: [place].ADMIT. UTI with pyuria-acute (present on admission) * Admit under the care of Dr. Buck to observation status * Initiate Rocephin 1g IV daily for antimicrobial coverage of urinary pathogen - first dose given in ED. UA culture pending. Monitor sensitivities and adjust treatment as indicated. * Monitor urinary output as well as daily weights for signs of fluid overload. * NS 125cc/hr for hydration. Nausea/Vomiting-acute * Acute on chronic - continue Zofran for nausea/vomiting; clear liquid diet as tolerated. Leukopenia-acute (present on admission) * WBC 4.2 - recheck CBC in AM and monitor trends closely. Hypokalemia-acute (present on admission) * K+ 2.4 - KCL IV boluses x 4 initiated in ED. Recheck BMP at 2000 to monitor potassium and renal function. Monitor closely on telemetry. Chronic Pain * Continue home pain medications including [place] and Fentanyl patch with Gabapentin. Monitor closely for signs of constipation. Will hold stool softeners in light of report of diarrhea. CT abdomen/pelvis showed no acute changes. If diarrhea persists, consider GI panel. Narcotic Dependence-chronic * Patient on multiple home narcotics for chronic pain. May be difficult to control pain while hospitalized. Caution with additional narcotic pain medications. Tobacco Dependence * Smoking cessation encouraged. Hypertension-chronic * No listed blood pressure medication on APR. Monitor blood pressure closely and treat as indicated. Hypothyroid-chronic * Will recheck TSH now in light of concerns of hyperthyroidism. Continue home Synthroid. Anxiety and Depression-chronic * Continue home Klonopin, Zoloft and Trazodone. History of DVT with chronic anticoagulation-resolved * Continue anticoagulation with Xeralto. Encourage ambulation as able and SCDs for DVT prophylaxis. GERD-chronic * Continue home Prilosec for GI protection and GERD. Seasonal Allergic Rhinitis-chronic * Continue home Flonase History of malignant neoplasm of the colorectal region-resolved. * Colostomy care Upon discharge, patient's care will be returned to her PCP, Dr. Guzmán. 05/17/16- [place] *UTI- Hx of polyorganism infection Continue Ceftriaxone. +GNR, await final culture. Prior cultures reviewed. Hx of renal stent with concern for worsening hydronephrosis, stent occlusion. Dr. Bennett has seen patient in the past-- will consult to evaluate. She is fairly asymptomatic. *Recent diarrhea, GI upset- Improved. ADAT. Continue IVF. Slowly advance diet as tolerated. *Hypokalemia- Continue replacement via IVF and oral. Will decrease oral replacement to BID. Assess Inz Calcium given low Calcium (low albumin). May need to replace. Mag ok. *Cardiac ectopy- continue tele as we normalize electrolytes. *Hx of rectal cancer with ostomy- supportive care. *Hx of DVT- xarelto. (confirm dose). *Acute on chronic pain- will increase PRN percocet to Q 4 hours PRN pain. Leave remainder of meds alone. She will need at least another 24 hours of close monitoring and electrolyte replacement. Ongoing IV fluid, electrolyte replacement and IV antibiotics. Needs urology consult. Change to inpatient status due to ongoing care needs. 05/18/16 Unfortunately, patient was positive for C. difficile this morning. Will place patient in contact precautions and start oral Flagyl She was seen by Dr. Patel urologist this morning who recommends left stent change tomorrow. Patient did receive 1 dose of Xarelto last evening. Will have to speak further with Dr. Patel if this will influence procedure tomorrow. Xarelto held for now. Will continue with clear liquid diet for now as she continues to have intermittent nausea. Potassium this morning is elevated at 5.2, phosphorus is low at 1.9 Creatinine remains stable at 1.4 Discuss further plan of care with REGINE Francicso DO 05/18/16 [id number]: Assessment & Plan Assessment 05/18/2016 Heber note: I saw Kinga Barrett at the same time the woman from the wound care section of the hospital was in there examining her stoma. Were able to talk about the fact that she has complained today of more abdominal pain and wanted stronger pain meds. I reminded her she was on a fentanyl 100 g per hour patch and as she was getting quite a bit of additional narcotic help. She denies shortness of breath, she denied any chest pain. She did complain of that her stone was seen to be sticking out more than usual. She denied any cough ; also denied any problem walking around. Exam showed the heart to have a regular rate and rhythm without murmur; the lungs are clear to auscultation bilaterally with no wheezing; the abdomen was soft and nontender I push pretty hard wall the emergency response technician was looking at her stoma with the patient focused on the emergency response technician. Even though I pressed very hard on different parts the abdomen she had no complaint of pain. Her extremities are examined and no cyanosis and no edema is present. Cranial nerves II through XII are grossly intact as well. Her diagnoses include hypokalemia which was severe when she came in and which is now corrected; 2. UTI, which we are still fighting. We have cultured Klebsiella pneumoniae out of the urine. It is susceptible to Rocephin and we shall continue the Rocephin. 3. Nausea and vomiting which have resolved 4. Leukopenia which is still present 5. Anxiety 6. Chronic pain syndrome, chronic course 7. Narcotic dependency, chronic A. Nicotine addiction, chronic. Malignant neoplasm of colon and rectal area, both of which were operated to 3 years ago. 10. Hydronephrosis plans to work on that and replaced the stent tomorrow. 2 new diagnoses are 1 prolapse of stoma, with at least a 6 cm prolapse. Surgeon did a Zoll that the great extent at least temporarily until she can go to her surgeon who is Dr. Lizarraga in [place]. And another new diagnosis C. difficile bowel infection. Patient has had a C. difficile infection the past and therefore I started both the Flagyl and vancomycin on her today. In response to her complaints of pain we will increase her oral narcotic. I Have Read the Progress Note by Ms. Manzohman and Fully Agree with His Findings, Its Assessment and Plan. On the left and I believe that Dr. Patel BY LINDA YANEZ APRN May 18, 2016 10:04 REGINE BUCK DO May 18, 2016 18:58
[2016-05-18] MEDS: METRONIDAZOLE 500 MG TABLET PO SCH ×2 (10:32→18:42)
--- NOTE | 2016-05-18 14:52 | NUR ---
CM ATTEMPTED VISIT; PT WAS OCCUPIED WITH RN. RN STATED PT IS DOING OK. THIS WORKER SPOKE WITH DR. FELDMAN; PT NOT STABLE FOR DC TODAY. WILL FOLLOW UP WITH PT. Addendum: 05/18/16 at 1457 by HAMILTON KLEIN Amended: Links added.
--- NOTE | 2016-05-18 14:56 | NUR ---
ABNORMAL STOMA DISCUSSED STOMA APPEARANCE WITH LINDA ABAD AND DR FELDMAN. STOMA IS SEVERAL INCHES LONG AND SWOLLEN. PT SAYS IT IS NORMALLY NOT THIS LARGE. STOMA IS ALSO DRIPPING BLOOD. ORDER TO CONSULT FURNITURE SANDER GENERAL SURGEON.
[2016-05-18 14:58] VITALS: BP 148/88; PULSE 66; RESP 18; TEMP 96.4; O2SAT 98
--- NOTE | 2016-05-18 15:58 | NUR ---
HEENA CONSULTED RN PAGED DR NAIK ABOUT STOMA. HE WOULD LIKE WOUND CARE TO ASSESS STOMA FIRST TO DETERMINE IF IT IS TRULY NECESSARY FOR HIM TO BE CONSULTED. AWARE OF HER HISTORY OF ABNORMAL STOMA. Addendum: 05/18/16 at 1701 by JEANNE REYES RN BRITTNI FROM WOUND TEAM FEELS THAT NEEDS TO BE CONSULTED. BRITTNI HAS TALKED TO HEENA.
--- NOTE | 2016-05-18 17:33 | WOUNDPN ---
Nurse to Nurse Wound Consult Wound was asked to go assess Stoma at this time stoma has prolapsed and measures 8cm. Dr Lazar informed. Also at this time Nephrostomy tube opening cleaned and new drsg applied. EITAN KENNY RN May 18, 2016 17:33
--- NOTE | 2016-05-18 18:33 | NUR ---
SHIFT SUMMARY VSS. RA. PATIENT CONTINUES TO REPORT ABDOMINAL PAIN. ABD BINDER PLACED AFTER DR NAIK REDUCED STOMA PROLAPSE. HOWEVER, ONLY MINUTES AFTER PROLAPSE REDUCED, STOMA BEGAN TO PROTRUDE AGAIN, DR AWARE AND SAID THIS MAY HAPPEN. RIGHT UROSTOMY BAG HAS ADEQUATE OUTPUT. PATIENT CONTINUES TO VOID ADEQUATELY FROM LEFT KIDNEY, HOWEVER VOIDED URINE HAS SMALL AMOUNT OF HEMATURIA AT TIMES. NS INFUSING AT 100CC/HR. PT ON FULL LIQUID DIET, UNABLE TO ADVANCE TODAY DUE TO ABDOMINAL PAIN AND NAUSEA. 2 DOSES OF ORAL PHENERGAN GIVEN TODAY. PATIENT WILL BE NPO AFTER MIDNIGHT FOR UROLOGY PROCEDURE.
--- NOTE | 2016-05-18 20:30 | NUR ---
nausea states abdominal discomfort and nausea continue. Phenergan given with evening meds
--- NOTE | 2016-05-18 21:50 | NUR ---
comfort requesting pain med. Explained too soon for Percocet, will give Clonopin to assist with rest, anxiety. Will give Percocet when time
[2016-05-18] MEDS: CLONAZEPAM 0.5 MG TABLET PO PRN (21:59)
--- NOTE | 2016-05-18 22:35 | NUR ---
comfort is sleeping, awakened by verbal stimuli. Percocet offered. Repositions self for comfort
[2016-05-19] VITALS (23 sets, daily range): BP systolic 83–147; BP diastolic 50–87; PULSE 63–100; RESP 16–20; TEMP 95.5–98; O2SAT 93–100
[2016-05-19] MEDS: METRONIDAZOLE 500 MG TABLET PO SCH ×2 (00:14→08:18)
--- NOTE | 2016-05-19 03:49 | NUR ---
comfort states has been sleeping off and on. Up to BR, voids. Percocet given w/ sm. amt. water
[2016-05-19] MEDS: NORMAL SALINE 1,000 ML IV SCH ×2 (04:54→10:59)
[2016-05-19] MEDS: OMEPRAZOLE 20 MG CAPSULE PO SCH (05:24)
[2016-05-19] MEDS: LEVOTHYROXINE 75 MCG TABLET PO SCH (05:25)
--- NOTE | 2016-05-19 05:33 | NUR ---
meds NPO since midnight, exception of giving meds with sm. amts. water
[2016-05-19] MEDS: CEFTRIAXONE 1 G in NORMAL SALINE 100 ML IV SCH (08:29)
[2016-05-19] MEDS: NICOTINE 14 MG PATCH TD SCH (08:30)
[2016-05-19] MEDS: NICOTINE PATCH REMOVAL TD SCH (08:30)
--- NOTE | 2016-05-19 08:30 | NUR ---
STATUS/PAIN PT ALERT AND ORIENTED. C/O'S ABDOMINAL PAIN RATED 8-9/10. REGINA RECEIVED FROM DR. FELDMAN TO GIVE PO PAIN MED WELL PO VANCO. PERCOCET AND VANCO GIVEN WITH SMALL SIPS OF WATER. PT NPO FOR SURGERY. VITALS OBTAINED AND STABLE CHARTED. WILL MONITOR.
[2016-05-19] MEDS: GABAPENTIN 300 MG CAPSULE PO SCH ×2 (09:00→21:54)
[2016-05-19] MEDS: SERTRALINE 100 MG TABLET PO SCH ×2 (09:00→21:54)
--- NOTE | 2016-05-19 09:40 | NUR ---
STOMA DR. NAIK NOTIFIED THAT PT'S COLOSTOMY STOMA IS BACK OUT BEFORE HIS ATTEMPT TO REDUCE IT AND PT'S CONCERN THAT IT IS DRAINING URINE. PT ALSO ASKS IF ABDOMINAL BINDER MAY BE LEFT OFF AND THIS IS OKAYED. WILL CONTINUE TO MONITOR.
--- NOTE | 2016-05-19 09:49 | CONSF ---
DATE OF CONSULTATION 05/18/2016 CONSULTING PHYSICIAN Irving Abad MD REQUESTING PHYSICIAN Dr. Buck REASON FOR CONSULTATION Bleeding from stoma IMPRESSION 1. Stomal prolapse. 2. Anticoagulation with Xarelto. RECOMMENDATIONS 1. With the application of sugar to the mucosa, I was able to get enough edema out of the prolapsed colon to manually reduce the prolapse to back beneath the fascial level. 2. I would recommend wearing an abdominal binder for the next few days to try to keep the bowel in a more appropriate position while edema continues to resolve. 3. I do not think she needs current surgical intervention and if she needed revision of her colostomy then I would recommend that she follow up with her colorectal surgeon in [place] (Dr. Sascha Lizarraga). HISTORY OF PRESENT ILLNESS Yvette is known to my surgical practice from prior surgical care in December 2013. She does have a surgical history that would be consistent with an abdominoperineal resection though different portions of the operation were performed at different times. She does have an end colostomy in the left abdomen. Over the last year she noted more prolapse of the mucosa. The prolapse would reduce spontaneously. She feels that the prolapse events have been occurring more frequently. When she does have prolapse she will have crampy pain in the area that increases up to 8/10 in severity. She has not noticed any mucosal changes. Previously she has not had any bloody discharge but the nurse noticed some blood-tinged serous fluid today. She is on Xarelto for a history of DVT. PAST MEDICAL HISTORY 1. Gastroesophageal reflux disease. 2. Peptic ulcer disease with large prepyloric gastric ulcer in July 2012 and antral ulcers in May 2013. 3. Rectal cancer which was unresectable at the time of diagnosis due to colovesical fistula and multiple intra-abdominal abscesses discovered in November 2011. Pathology was confirmed on 01/01/2012. The patient later had resection of the rectal stump by Dr. Sascha Lizarraga in [place], [place]. 4. Recurrent Clostridium difficile colitis. 5. Parastomal hernia. 6. Anxiety. 7. Depression. 8. Seasonal allergies. 9. Hypertension. 10. Hyperthyroidism due to hyperactive nodule, now with hypothyroidism. 11. Nephrolithiasis 12. Pancreatitis. 13. Small bowel obstruction that resolved with conservative management - December 2013. PAST SURGICAL HISTORY 1. Cystoscopy - [address] Valenzuela. 2. Nephrostomy tube placements. 3. Bilateral ureteral stone basketing and bilateral ureteral stent exchanges - 12/19/[address] Bennett. 4. Bilateral ureteral stent exchange with ureteroscopy/stone manipulation and dilation of right distal ureteral stricture - 12/05/[address] Bennett. 5. Cystoscopy with bilateral retrograde pyelogram and ureteral stent exchange. She had removal of bladder stones - 10/31/[address] Bennett. 6. Abdominoperineal resection (excision of the remainder of the rectal stump), colostomy revision, hysterectomy, apparent segmental small bowel resection, apparent segmental transverse colon resection - 10/12/[address] Sascha Lizarraga in [place], [place]. 7. Bilateral ureteral stent placement and right retrograde pyelogram - [address] Bennett. 8. Esophagogastroduodenoscopy with cauterization of the duodenum, biopsies of the duodenum and prepyloric gastric ulcers - 06/21/[address] Abad. Pathology did not show any malignancy but acute and chronic inflammation. 9. Replacement of bilateral ureteral stents - 02/[address] Valenzuela. 10. Esophagogastroduodenoscopy, colonoscopy through stoma with hot biopsy forceps polypectomy, proctoscopy, right internal jugular Port-A-Cath placement - 01/03/[address] Abad. Pathology revealed a hyperplastic polyp. Prepyloric gastric ulcer was still present. Mass on proctoscopy could only be intubated from 8 cm to 11 cm. 11. Port-A-Cath removal - 2012 due to erosion of the port through the skin. 12 Esophagogastroduodenoscopy- 07/28/[address] Abad. Endoscopy revealed large prepyloric gastric ulcer and gastritis. 13. Right internal jugular Port-A-Cath, rigid proctoscopy with random rectal biopsies - 01/01/[address] Ravi Lizarraga in [place]. Pathology revealed invasive moderately-differentiated adenocarcinoma. 14. Exploratory laparotomy, segmental sigmoid colon resection with sigmoid colostomy (Tl's procedure) - 12/11/2011. Pathology revealed benign tissue with marked serosal fibrous adhesions, segmental stenosis of the colonic wall showing mucosal ischemic colitis, focal fistula formation, pericolonic abscess, and acute serositis. There were 37 benign pericolonic lymph nodes. Surgical margins were benign. The partial omental resection showed marked fibrosis showing chronic lobulitis and panniculitis. 15. Attempted colonoscopy on 01/09/[address] Ravi Lizarraga. Endoscopy was unable to cannulate the concentric rectal mass. Pathology was abnormal but did not confirm rectal cancer. 16. Incomplete colonoscopy due to inadequate prep - 10/27/[address] Ravi Lizarraga. 17. Bilateral ureteral stent placement - 10/28/[address] Valenzuela. 18. Completion of resection of rectal stump (resulting in abdominoperioneal resection) with revision of colostomy - 2013 Dr. Sascha Lizarraga in [place], [place] 19. section - 1990. 20. [place] teeth extraction. ALLERGIES No known drug allergies. MEDICATIONS The patient's hospital medications were reviewed. She has been on Xarelto which is currently on hold. See hospital MAR. SOCIAL HISTORY The patient is single. She has one child who was born in 1990. She is disabled. She previously worked as a [employer]DER. She smokes two cigarettes a day and had previously been a smoker and quit in March 2013. She denies alcohol use. FAMILY HISTORY Breast cancer - maternal aunt. Colon cancer - maternal uncle. Diabetes - mother, sister. Emphysema - mother. Myocardial infarction - mother, father. Heart failure - mother. Hypertension - mother. Hypercholesterolemia - mother. Stroke - mother, father. REVIEW OF SYSTEMS Ten-point review of systems was negative except for history of present illness and the following: GENERAL: She has had chills. NEUROLOGIC: She has had dizziness. HEENT: She has had double vision at times. GENITOURINARY: She has had hematuria occasionally along with pain with urination. HEMATOLOGIC: She is on Xarelto for a history of DVT. MUSCULOSKELETAL: She has back pain. ENDOCRINE: She does have hypothyroidism and takes thyroid replacement. PHYSICAL EXAM VITAL SIGNS: Temperature 96.4, pulse 66, blood pressure 148/88, respiratory 18 , oxygen saturation 98% on room air. GENERAL: The patient is awake, alert, in no acute distress. HEENT: Sclerae clear. Extraocular muscles intact. NECK: Supple with a midline trachea. No lymphadenopathy or thyromegaly are noted. HEART: Regular rate and rhythm. LUNGS: Clear oxygenation bilaterally. ABDOMEN: Thin with a colostomy in the left abdomen. She has prolapse of approximately 10 cm of the colonic mucosa and there is edema of the mucosa. There is some slightly blood- tinged serous fluid within her colostomy appliance. No masses are noted. EXTREMITIES: No clubbing, cyanosis or edema. NEURO: Cranial nerves II-XII are grossly intact. PSYCHIATRIC: Normal mood and affect. . BEDSIDE PROCEDURE The patient's colostomy was manually reduced. Her ostomy appliance was removed and multiple packets of table sugar were applied to the mucosa. When edema had started to resolve, the leading edge of the prolapsed mucosa was rotated internally. Manual reduction with a finger within the lumen of the colon was also utilized and the continued leading edge of the mucosa was rolled back within the lumen of the bowel until the segment of prolapse colon could be reduced beneath the level of the fascia. A total of 30 minutes at the bedside was utilized to reduce the colon segment. This allowed for full reduction to where the colostomy was flush with the skin surface. As the patient sat up, there was slight recurrent prolapse but much decreased. An abdominal binder was placed to try to prevent ongoing prolapse. Her ostomy appliance had been replaced after reduction. She tolerated the procedure well. KIMBERLY
[2016-05-19 10:07] LABS: HCT - HEMATOCRIT 31.1 % (36-46); HGB - HEMOGLOBIN 9.5 GM/DL (12-16); MEAN CORPUSCULAR HGB 28.6 UUG (26-34); MEAN CORPUSCULAR HGB CONC(MCHC 30.5 GM/DL (31-37); MEAN CORPUSCULAR VOLUME 93.7 UM3 (80-100); MEAN PLATELET VOLUME 10.4 UM3 (9.4-12.4); RED BLOOD COUNT 3.32 M/MM3 (4.00-5.20); WBC - WHITE BLOOD COUNT 5.9 T/MM3 (4.5-11.0)
[2016-05-19 10:15] LABS: ANION GAP 5 MEQ/L (5-15); BUN/CREATININE RATIO 5 RATIO (6-26); CALCIUM 7.2 MG/DL (8.4-10.2); CHLORIDE 120 MEQ/L (98-107); CO2 - CARBON DIOXIDE 19 MEQ/L (22-30); CREATININE 1.2 MG/DL (0.7-1.2); GLOMERULAR FILTRATION RATE 48; GLUCOSE 71 MG/DL (65-110); POTASSIUM 4.2 MEQ/L (3.6-5); SODIUM 144 MEQ/L (134-144)
--- NOTE | 2016-05-19 10:30 | NUR ---
TO SURGERY PT DENIES THE NEED TO VOID AT THIS TIME. PT'S JEWELRY-RINGS, BRACELETS, AND NECKLACE- GIVEN TO PT'S SON WHO AGREES TO KEEP JEWELRY FOR PT UNTIL HER RETURN. PT TO SURGERY PER W/C AFTER REPORT GIVEN TO OLINDA RODRIGUEZ.
--- NOTE | 2016-05-19 10:56 | ANESPREOP ---
Anesthesia Record Date and Time DATE: 05/19/16 TIME: 10:55 Pre-Op Diagnosis stent exchange Proposed Surgical Procedure stent exchange NPO since: 2199 Allergies: Coded Allergies: gentamicin (Verified Allergy, Unknown, FACIAL SWELLING, 05/16/16) Ht/Wt/BMI Height: 5 ' 3.00 " Weight: 58.700 kg BMI: 22.3 kg/m2 Vital Signs Date Time Temp Pulse Resp B/P Pulse Ox O2 Delivery O2 Flow Rate FiO2 05/19/16 08:52 96.8 67 20 123/85 100 Room Air Medications Inpatient Medications Current Medications Medications (Trade) Dose Ordered Sig/Malena Start Time Stop Time Status Last Admin Dose Admin Potassium Chloride 10 meq/ Sterile Water 105 ml @ 100 mls/hr Q1H3M 05/16/16 14:00 05/16/16 18:11 DC 05/16/16 19:15 100 MLS/HR Ceftriaxone Sodium/Sodium Chloride (Rocephin/NS) 100 ml @ 200 mls/hr DAILY 05/17/16 09:00 05/19/16 08:29 200 MLS/HR Ondansetron HCl 4 mg 4 mg Q4H PRN 05/16/16 18:00 05/17/16 00:38 4 MG Sodium Chloride (Normal Saline IV) 1,000 ml @ 125 mls/hr Q8H 05/16/16 18:00 05/16/16 22:07 DC Clonazepam (Klonopin) 0.5 mg BID PRN 05/16/16 18:00 05/18/16 21:59 0.5 MG Fentanyl (Duragesic 100mcg) 1 patch Q72H 05/16/16 18:00 05/16/16 19:39 DC Fluticasone Propionate (Flonase) 1 spray DAILY 05/17/16 09:00 05/18/16 09:25 1 SPRAY Gabapentin (Neurontin) 300 mg BID 05/16/16 21:00 05/18/16 20:27 300 MG Levothyroxine Sodium (Synthroid) 75 mcg ACB 05/17/16 06:30 05/19/16 05:25 75 MCG Omeprazole (Prilosec) 20 mg ACB 05/17/16 06:30 05/19/16 05:24 20 MG Oxycodone/ Acetaminophen (Percocet 5/325) 1 tab Q6H PRN 05/16/16 18:00 05/17/16 12:03 DC 05/17/16 06:32 1 TAB Sertraline HCl (Zoloft) 100 mg BID 05/16/16 21:00 05/18/16 20:27 100 MG Trazodone HCl (Desyrel) 100 mg HS PRN 05/16/16 18:00 Fentanyl (Duragesic 100mcg) 1 patch Q72H 05/17/16 09:00 05/17/16 09:25 1 PATCH Promethazine HCl 6.25 mg 6.25 mg Q4H PRN 05/16/16 19:45 05/17/16 10:36 DC 05/17/16 09:41 6.25 MG Potassium Chloride/Sodium Chloride (Normal Saline w/ KCl 20 Meq) 1,000 ml @ 100 mls/hr Q10H 05/16/16 20:45 05/18/16 08:16 DC 05/17/16 23:35 100 MLS/HR Potassium Chloride (Kdur) 40 meq TIDWM 05/17/16 08:00 05/17/16 12:03 DC 05/17/16 11:36 40 MEQ Fentanyl (Duragesic Patch Removal) 1 removal Q3D 05/17/16 09:00 05/17/16 09:32 1 REMOVAL Promethazine HCl (Phenergan) 6.25 mg Q4H PRN 05/17/16 10:45 05/18/16 20:27 6.25 MG Oxycodone/ Acetaminophen (Percocet 5/325) 1 tab Q4HR PRN 05/17/16 11:45 05/18/16 14:49 DC 05/18/16 10:32 1 TAB Potassium Chloride (Kdur) 40 meq BIDBS 05/17/16 17:30 05/17/16 17:43 DC 05/17/16 17:00 40 MEQ Rivaroxaban (Xarelto) 20 mg WS 05/17/16 17:30 Future Hold 05/17/16 16:59 20 MG Nicotine (Nicoderm) 14 mg DAILY 05/18/16 09:00 05/19/16 08:30 14 MG Nicotine 1 removal 1 removal DAILY 05/18/16 09:00 05/19/16 08:30 1 REMOVAL Sodium Chloride (Normal Saline IV) 1,000 ml @ 100 mls/hr Q10H 05/18/16 08:15 05/19/16 04:54 100 MLS/HR Metronidazole (Flagyl) 500 mg Q8HR 05/18/16 10:00 05/19/16 08:18 DC 05/19/16 00:14 500 MG Vancomycin HCl (Vancocin Oral Soln) 125 mg QID 05/18/16 11:30 05/19/16 08:29 125 MG Oxycodone/ Acetaminophen 1 tab 1 tab Q4H PRN 05/18/16 15:00 05/19/16 08:29 1 TAB Metronidazole/ Sodium Chloride (Flagyl I.v./NS) 100 ml @ 100 mls/hr Q8H 05/19/16 08:30 Clonazepam (Clonazepam) 0.5 Mg Tablet, 0.5 MG PO BID PRN for ANXIETY, (Reported) Last Taken: on 05/11/16 Fentanyl (Fentanyl 100 mcg/hr) 1 Each Patch.td72, 1 PATCH TD Q3DAY, (Reported) Last Taken: on 05/13/16 Fluticasone Propionate (Fluticasone Prop 50 mcg/ actuation Nasal Mathews) 120 Mathews/16 G Mathews, 1 SPRAY EA NOSTRIL DAILY, (Reported ) Last Taken: on 05/13/16 Gabapentin (Gabapentin) 300 Mg Capsule, 300 MG PO BID, (Reported) Last Taken: on 05/13/16 Levothyroxine Sodium (Synthroid) 75 Mcg Tablet, 75 MCG PO ACB, (Reported) Last Taken: on 05/13/16 Omeprazole (Omeprazole) 20 Mg Capsule.dr, 20 MG PO DAILY, (Reported) Last Taken: on 05/13/16 Oxycodone HCl/Acetaminophen (Oxycodone- Acetaminophen 5-325) 5-325 Tablet, 1 TAB PO Q6H PRN for PAIN, (Reported) Last Taken: on 05/13/16 Sertraline (Sertraline) 100 Mg Tablet, 100 MG PO BID, (Reported) Last Taken: on 05/13/16 Trazodone HCl (Trazodone HCl) 50 Mg Tablet, 100 MG PO HS PRN for INSOMNIA, (Reported) Last Taken: on Unknown Date & Time Currently on Beta Marco: No Medical/Surgical History Anesthesia PMH: Reports: *Hypertension, Cancer (COLORECTAL CA., rectal CA), Clotting Problems (XARELTO FOR BLOOD CLOTS), Deep Vein Thrombosis, Reflux, Renal Disease (RENAL FAILURE), Thyroid Disease (HYPERTHYROIDISM), Denies: * Angina, *Diabetes, *Dyspnea, *[place], Anesthesia Reactions (NO AIRWAY ISSUES KNOWN) , Arthritis, Asthma, Blood Transfusion Reac, CHF, COPD, CVA/Stroke/TIA, Cardiac Arrythmia, Glaucoma, Hepatitis, Hiatal Hernia, Malignant Hyperthermia, Pacemaker , Pneumonia, Rheumatic Fever, Seizures, Sleep Apnea, Tuberculosis Smoking Status: Former smoker # of Packs per Day: 1 Use Chewing Tobacco?: No Second Hand Exposure: No Substance Use Type: does not use Alcohol Intake: none HX of Last Menstrual Period: HYSTERECTOMY Past Surgical History Orthopedic Surgeries: No Abdominal Surgeries: Yes - EXP LAP FOR COLON RESECTION.COLONSCOPY REMOVE TUMORS FROM RECTUM. Genitourinary Surgeries: Yes - NEPHROSTOMY TUBES.LITHO.SYSTO STENS Cardiac Surgeries: No Endocrine Surgeries: No Reproductive Surgeries: Yes - HYSTERECTOMY,C/S,APPENDECTOMY. Neurological Surgeries: No Ear Surgeries: No Nose Surgeries: No Throat Surgeries: No Other Surgeries: Yes - PAC PLACEMENT Anesthesia Adverse Reactions: FOUND none Pertinent Findings Laboratory Tests 05/19/16 09:26 Test 05/16/16 13:12 Urine Test Negative (NEGATIVE) EKG Rhythm: Sinus Rhythm Physical Exam Respiratory: Lungs clear Cardiovascular: FOUND Regular rate, rhythm, FOUND Systolic murmur Airway Assessment Mallampati Score: II TMD: 3 Fingerbreadths Neck Extension: Good Teeth: Upper Dentures Overall Assessment: No Airway Concerns ASA: 3 Plan Anesthesia Plan: TIVA Discussion Discussed risks/options/alternatives of anesthesia and questions answered. Patient consents. Nursing pain assessment noted. Attestation Statement Prior to the delivery of any anesthetic medication, I examined the patient, developed the plan, obtained the patient's consent and discussed the risk and benefits of the procedure with the patient/guardian. ROXANNE CONNELLY CRNA May 19, 2016 10:56
[2016-05-19] MEDS ORDERED: MIDAZOLAM 2mg/2ml INJECTION IV ONE (11:00)
[2016-05-19 11:06] LABS: BAND NEUTROPHILS # 0.1 T/MM3; EOSINOPHILS # (MANUAL) 0.2 T/MM3 (0-0.5); LYMPHOCYTES # (MANUAL) 0.3 T/MM3 (1-4.8); MONOCYTES # (MANUAL) 0.4 T/MM3 (0-0.8); TOTAL CELLS COUNTED 100 %
[2016-05-19] MEDS: METRONIDAZOLE IVPB 500 MG in NORMAL SALINE 100 ML IV SCH ×2 (11:53→18:57)
--- NOTE | 2016-05-19 13:47 | NUR ---
CM THIS WORKER ATTEMPTED TO VISIT PT TWICE, STOPPED BY SON AND WAS TOLD PT IS STILL IN SURGERY. THIS WORKER WILL CONTINUE TO FOLLOW PT.
[2016-05-19] MEDS ORDERED: FENTANYL 100mcg/2ml INJECTION ONE (13:56)
[2016-05-19] MEDS ORDERED: PROPOFOL 500mg 50 ML IV ONE (13:57)
[2016-05-19] MEDS ORDERED: PROPOFOL 200mg 20 ML IV ONE (14:32)
--- NOTE | 2016-05-19 14:40 | NUR ---
preop med Versed ordered for communication technician to OR. pt taken to OR by Carolann Welch RN before med could be given. Pt is not complaining of anxiety and expresses no need for the med. Reported to Anesthesia provided Rina Farias CRNA
[2016-05-19] MEDS ORDERED: IOHEXOL 300 MG/ML 50ml INJECTION ONE (14:43)
--- NOTE | 2016-05-19 14:58 | GSPOSTPN ---
Procedure Procedure Date: May 19, 2016 Surgeon: Other Anesthesia: General- TIVA ASA: 3 Procedure cysto, left retrograde pyelogram, left JJ stent change. by Windy EDDY Diagnosis Postop Diagnosis left hydro Complications Complications none Estimated Blood Loss See Anesthesia Record. Vital Signs See Anesthesia and PACU record. JEREMIAH FALCON May 19, 2016 14:58
--- NOTE | 2016-05-19 15:27 | DI ---
Indication: ITS.REASON: LEFT STENT EXCHANGE/LEFT RETROGRADE PROCEDURE: RF RETROGRADE PYELOGRAM LEFT: Encounter: Initial Comparison: October 31, [address] abdomen/pelvis dated May 16, 2016 Findings: Seven fluoroscopic spot images are submitted for interpretation. Images show retrograde injection of contrast into the dilated left renal collecting system followed by exchange of the left-sided double-J stent which projects in appropriate position. Impression: Fluoroscopy as above. Fluoroscopy time is 37 seconds. Fluoroscopy dose is 612 mRad. .
[2016-05-19] MEDS: FLUTICASONE NASAL SPRAY 50 MCG EA NOSTRIL SCH (16:14)
[2016-05-19] MEDS: PROMETHAZINE 6.25 MG/5 ML PO PRN (20:07)
--- NOTE | 2016-05-19 20:10 | NUR ---
comfort up and active in room. Denies dizziness as up. Requests Percocet and Phenergan for abdominal discomfort
--- NOTE | 2016-05-19 20:33 | PNF ---
DATE OF VISIT 05/19/2016 REASON FOR VISIT Follow ostomy. SUBJECTIVE Yvette had re-prolapse of her colostomy this morning. I was contacted by the nurse and ordered that she could take the abdominal binder off since it was no longer holding the prolapsed segment beneath the fascia. There has been no blood in the fluid in her ostomy bag. She has not had stool per the ostomy. She had a procedure earlier today by Dr. Patel. OBJECTIVE Vitals: Temperature 95.5, pulse 63, blood pressure 118/69, respiratory rate 18, oxygen saturation 97% on room air. GENERAL: The patient is awake, alert, in no acute distress. ABDOMEN: Soft, nontender. She does have a lengthy segment of prolapsed bowel approximately 10 cm in length at her colostomy. The mucosa is all viable. There is serous fluid within the ostomy appliance. ASSESSMENT 1. 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 2. History of rectal cancer. 3. I think that the fluid in her ostomy appliance bag is actually edema from the swollen mucosa as opposed to any connection to the urinary tract. PLAN 1. I do not see any surgical intervention that I would be capable of as far as revision of the colostomy. 2. I am not aware of any conservative management that would work other than the abdominal binder which has already failed. 3. Once she is stable for dismissal I advised that she contact Dr. Sascha Lizarraga's office and have the area reevaluated or possibly speak to one of the wound ostomy nurses at [facility]. She said that she had already visited with Dr. Lizarraga who felt that the only intervention possible would require reentry into the abdominal cavity and he was not willing to perform that surgery when she last visited with him. 4. I advised that if she does develop mucosal changes that she present to one of the hospitals in [place] where a colorectal surgeon would be available. 5. I will sign off of Yvette's case since there does not appear to be anything that I can do to improve her situation with her colostomy. If other general surgical needs develop, please contact me. KIMBERLY
--- NOTE | 2016-05-19 21:50 | PNPDOC ---
Subjective Date DATE: 05/19/16 TIME: 21:39 Subjective 05/19/2016 Dr. Buck note I saw Ms. Barrett in her room today after she had had the minor surgery from her urologist. She was alert and fully awake. She denied any shortness of breath and she denied any abdominal pain at that time. She denied chest pain and denied any recurrent emesis or diarrhea. She did have some diarrhea yesterday and we know we cultured C. difficile out of that. She does complain of a prolapse of her bowels and her her stoma once again even though it was fixed yesterday by Dr. Villanueva at that time his note delineated that he was only temporarily patient back in and that she would need to go to Dr. Lizarraga, her GI surgeon who had done a more permanent fix on that in the past. I believe her procedure today was replacement of a nephrostomy tube in apparently meticulous and 15 minutes. She said the procedure was no problem at all and not painful. Objective Vital Signs Vital signs Patient is examined and the lungs are found to be clear to auscultation bilaterally without wheezing; Heart shows a regular rate and rhythm without murmur Abdomen soft, nontender with physiologic bowel sounds Extremities show no clubbing cyanosis or edema Vital Signs Date Time Temp Pulse Resp B/P Pulse Ox O2 Delivery O2 Flow Rate FiO2 05/19/16 20:00 96.5 79 16 112/75 100 Room Air 05/19/16 15:08 6.00 Height (Feet): 5 Height (Inches): 3.00 Weight (Kilograms): 58.700 Laboratory Laboratory Laboratory Tests 05/18/16 04:23 05/19/16 09:26 Laboratory Tests 05/18/16 04:23 05/19/16 09:26 Microbiology Microbiology Microbiology Date/Time Source Procedure Growth Status 05/18/16 09:29 Not Provided Urine Culture - Preliminary Gram Positive Cocci Resulted Sepsis Diagnostic Criteria Sepsis Confirmed/Suspected Infection: Yes Assessment & Plan Problems: (1) Urinary tract infection Status: Acute Assessment & Plan: present on admission - UA 50-200 WBC with 3+ bacteria and + nitrite. Past cultures are reviewed. (2) Nausea & vomiting Status: Acute Qualifiers: Vomiting type: unspecified Vomiting Intractability: unspecified Qualified Codes: R11.2 - Nausea with vomiting, unspecified (3) Leukopenia Status: Acute Assessment & Plan: present on admission - 05/16/16 (WBC 4.2) (4) Hypokalemia Status: Acute Assessment & Plan: present on admission - 05/16/16 (K+ 2.4). (5) Chronic pain Status: Chronic (6) HTN (hypertension) Status: Chronic (7) Hypothyroidism Status: Chronic (8) Anxiety and depression Status: Chronic (9) GERD (gastroesophageal reflux disease) Status: Chronic (10) Narcotic dependence Status: Chronic (11) Tobacco dependence Status: Chronic (12) Hx of deep venous thrombosis Status: Resolved Assessment & Plan: 04/26/2014 (13) On anticoagulant therapy Status: Chronic Assessment & Plan: Xarelto (14) Seasonal allergies Status: Chronic (15) History of malignant neoplasm of colorectal region Status: Resolved Assessment & Plan: s/p colon resection. (16) Ureteral stent retained Status: Chronic Assessment & Plan: Follows with Dr. Edwards. (17) Hydronephrosis Status: Acute (18) C. difficile diarrhea Assessment & Plan: Started Flagyl 05/18 Assessment 05/18/2016 Heber note: I saw Kinga Barrett at the same time the woman from the wound care section of the hospital was in there examining her stoma. Were able to talk about the fact that she has complained today of more abdominal pain and wanted stronger pain meds. I reminded her she was on a fentanyl 100 g per hour patch and as she was getting quite a bit of additional narcotic help. She denies shortness of breath, she denied any chest pain. She did complain of that her stone was seen to be sticking out more than usual. She denied any cough ; also denied any problem walking around. Exam showed the heart to have a regular rate and rhythm without murmur; the lungs are clear to auscultation bilaterally with no wheezing; the abdomen was soft and nontender I push pretty hard wall the computer systems technician was looking at her stoma with the patient focused on the computer systems technician. Even though I pressed very hard on different parts the abdomen she had no complaint of pain. Her extremities are examined and no cyanosis and no edema is present. Cranial nerves II through XII are grossly intact as well. Her diagnoses include hypokalemia which was severe when she came in and which is now corrected; 2. UTI, which we are still fighting. We have cultured Klebsiella pneumoniae out of the urine. It is susceptible to Rocephin and we shall continue the Rocephin. 3. Nausea and vomiting which have resolved 4. Leukopenia which is still present 5. Anxiety 6. Chronic pain syndrome, chronic course 7. Narcotic dependency, chronic A. Nicotine addiction, chronic. Malignant neoplasm of colon and rectal area, both of which were operated to 3 years ago. 10. Hydronephrosis plans to work on that and replaced the stent tomorrow. 2 new diagnoses are 1 prolapse of stoma, with at least a 6 cm prolapse. Surgeon did a Zoll that the great extent at least temporarily until she can go to her surgeon who is Dr. Lizarraga in [place]. And another new diagnosis C. difficile bowel infection. Patient has had a C. difficile infection the past and therefore I started both the Flagyl and vancomycin on her today. In response to her complaints of pain we will increase her oral narcotic. I Have Read the Progress Note by Ms. Manzohman and Fully Agree with His Findings, Its Assessment and Plan. On the left and I believe that Dr. Patel BY MALISSA Plan/Intensity of Service 05/19/2717 Dr. Buck note: Diagnoses are as follows 1. Urinary tract infection 2. Nausea and vomiting, currently resolved 3. Leukopenia 4. Hypokalemia, currently resolved with a potassium of 4.25. Chronic pain syndrome 6. Hypertension 7. Hypothyroidism 8. Narcotic dependency 9. Tobacco dependency 10. On anticoagulant therapy chronically 11. History of malignant carcinoma of the colon and also of the rectum soon thereafter new problems: 1 Clostridium difficile infection of the same tract and to acute prolapse of bowel into the stoma bag for bowel contents. Patient got a new nephrostomy tube I believe on the left today, and our current plan is to continue to treat the Clostridium difficile with the oral vancomycin and I have change the Flagyl to IV Flagyl. We shall follow Dr. Ryan a suggestion that a more definitive treatment for her prolapse will be given by her surgeon, Dr. Lizarraga, probably practices a lot at [facility]. Code Status Full Code Hospital Course Summary Disclaimer The hospital course summary below is not to be considered part of the above Progress Note. Hospital Course Summary 05/16/16: [place].ADMIT. UTI with pyuria-acute (present on admission) * Admit under the care of Dr. Buck to observation status * Initiate Rocephin 1g IV daily for antimicrobial coverage of urinary pathogen - first dose given in ED. UA culture pending. Monitor sensitivities and adjust treatment as indicated. * Monitor urinary output as well as daily weights for signs of fluid overload. * NS 125cc/hr for hydration. Nausea/Vomiting-acute * Acute on chronic - continue Zofran for nausea/vomiting; clear liquid diet as tolerated. Leukopenia-acute (present on admission) * WBC 4.2 - recheck CBC in AM and monitor trends closely. Hypokalemia-acute (present on admission) * K+ 2.4 - KCL IV boluses x 4 initiated in ED. Recheck BMP at 2000 to monitor potassium and renal function. Monitor closely on telemetry. Chronic Pain * Continue home pain medications including [place] and Fentanyl patch with Gabapentin. Monitor closely for signs of constipation. Will hold stool softeners in light of report of diarrhea. CT abdomen/pelvis showed no acute changes. If diarrhea persists, consider GI panel. Narcotic Dependence-chronic * Patient on multiple home narcotics for chronic pain. May be difficult to control pain while hospitalized. Caution with additional narcotic pain medications. Tobacco Dependence * Smoking cessation encouraged. Hypertension-chronic * No listed blood pressure medication on APR. Monitor blood pressure closely and treat as indicated. Hypothyroid-chronic * Will recheck TSH now in light of concerns of hyperthyroidism. Continue home Synthroid. Anxiety and Depression-chronic * Continue home Klonopin, Zoloft and Trazodone. History of DVT with chronic anticoagulation-resolved * Continue anticoagulation with Xeralto. Encourage ambulation as able and SCDs for DVT prophylaxis. GERD-chronic * Continue home Prilosec for GI protection and GERD. Seasonal Allergic Rhinitis-chronic * Continue home Flonase History of malignant neoplasm of the colorectal region-resolved. * Colostomy care Upon discharge, patient's care will be returned to her PCP, Dr. Guzmán. 05/17/16- [place] *UTI- Hx of polyorganism infection Continue Ceftriaxone. +GNR, await final culture. Prior cultures reviewed. Hx of renal stent with concern for worsening hydronephrosis, stent occlusion. Dr. Bennett has seen patient in the past-- will consult to evaluate. She is fairly asymptomatic. *Recent diarrhea, GI upset- Improved. ADAT. Continue IVF. Slowly advance diet as tolerated. *Hypokalemia- Continue replacement via IVF and oral. Will decrease oral replacement to BID. Assess Inz Calcium given low Calcium (low albumin). May need to replace. Mag ok. *Cardiac ectopy- continue tele as we normalize electrolytes. *Hx of rectal cancer with ostomy- supportive care. *Hx of DVT- xarelto. (confirm dose). *Acute on chronic pain- will increase PRN percocet to Q 4 hours PRN pain. Leave remainder of meds alone. She will need at least another 24 hours of close monitoring and electrolyte replacement. Ongoing IV fluid, electrolyte replacement and IV antibiotics. Needs urology consult. Change to inpatient status due to ongoing care needs. 05/18/16 Unfortunately, patient was positive for C. difficile this morning. Will place patient in contact precautions and start oral Flagyl She was seen by Dr. Patel urologist this morning who recommends left stent change tomorrow. Patient did receive 1 dose of Xarelto last evening. Will have to speak further with Dr. Patel if this will influence procedure tomorrow. Xarelto held for now. Will continue with clear liquid diet for now as she continues to have intermittent nausea. Potassium this morning is elevated at 5.2, phosphorus is low at 1.9 Creatinine remains stable at 1.4 Discuss further plan of care with REGINE Francisco DO May 19, 2016 21:42
[2016-05-19] MEDS: TRAZODONE 50 MG TABLET PO PRN (23:50)
[2016-05-20] VITALS (7 sets, daily range): BP systolic 106–128; BP diastolic 64–79; PULSE 65–75; RESP 16–18; TEMP 96.1–97.7; O2SAT 99–100
[2016-05-20] MEDS: CLONAZEPAM 0.5 MG TABLET PO PRN ×2 (01:34→13:17)
--- NOTE | 2016-05-20 01:35 | NUR ---
comfort sleeps off and on. Requests pain med and "nerve pill", Klonopin and Percocet given
[2016-05-20] MEDS: NORMAL SALINE 1,000 ML IV SCH ×2 (02:40→14:31)
[2016-05-20] MEDS: METRONIDAZOLE IVPB 500 MG in NORMAL SALINE 100 ML IV SCH ×3 (03:05→19:35)
--- NOTE | 2016-05-20 05:40 | NUR ---
rest sleeps off and on last part of noc, resp. unlabored. Arouses easily for cares
[2016-05-20] MEDS: LEVOTHYROXINE 75 MCG TABLET PO SCH (06:32)
[2016-05-20] MEDS: OMEPRAZOLE 20 MG CAPSULE PO SCH (06:32)
--- NOTE | 2016-05-20 06:35 | NUR ---
rest sleeps, awakened for a.m. meds. Requests pain med, Percocet given
[2016-05-20] MEDS: SERTRALINE 100 MG TABLET PO SCH ×2 (08:12→20:58)
[2016-05-20] MEDS: GABAPENTIN 300 MG CAPSULE PO SCH ×2 (08:12→20:58)
[2016-05-20] MEDS: CEFTRIAXONE 1 G in NORMAL SALINE 100 ML IV SCH (08:13)
[2016-05-20] MEDS: NICOTINE 14 MG PATCH TD SCH (08:14)
[2016-05-20] MEDS: FENTANYL 100MCG/HR PATCH TD SCH (08:14)
[2016-05-20] MEDS: FENTANYL PATCH REMOVAL TD SCH (08:14)
[2016-05-20] MEDS: NICOTINE PATCH REMOVAL TD SCH (08:14)
[2016-05-20] MEDS: PROMETHAZINE 6.25 MG/5 ML PO PRN ×2 (08:17→13:17)
[2016-05-20] MEDS: FLUTICASONE NASAL SPRAY 50 MCG EA NOSTRIL SCH (08:18)
--- NOTE | 2016-05-20 10:40 | OPNOTEF ---
DATE OF OPERATION 05/19/2016 PREOPERATIVE DIAGNOSIS Left hydronephrosis. POSTOPERATIVE DIAGNOSIS Left hydronephrosis. PROCEDURE Cystoscopy, left retrograde pyelogram. Left ureteral stent change. SURGEON Zev Patel MD ANESTHESIA General COMPLICATIONS None. DRAINS 6 x 24 left double-J stent INDICATION This is a 50-year-old female who has a complicated medical history including colorectal cancer with prior abdominoperineal resection with end colostomy. Apparently she has a history of recurrent stones. She is not a tremendously reliable historian so she is unable to give me very good details on this but Dr. Valenzuela of [facility] has treated her for these for a number of years. It sounds like she used to have bilateral nephrostomy tubes. Currently she has a right nephrostomy tube which is actually a large caliber Murray catheter, along with left internal double-J stent. She thinks it has been more than six months since it was changed but she has no idea how long it has actually been. She was hospitalized with abdominal pain, flank pain, urinary tract infection. A CT scan showed significant left hydronephrosis despite the stent, making a concern for possible obstruction of the stent. It was recommended that we change the stent since it has been present for so long and it may be contributing to her pain. In addition to this, she was just diagnosed with Clostridium difficile colitis. RADIOGRAPHIC FINDINGS Left retrograde pyelography was undertaken through a #5 Malian open-ended ureteral catheter. 10 cc of contrast was used for the ureteral portion but a total of 25 cc was used for the retrograde pyelogram due to the markedly dilated renal pelvis. The distal ureter showed some narrowing and there appears to be an area of contained extravasation outside the ureter, questioning whether she may have previously had a distal ureteral fistula. Above this, the mid ureter is fairly normal in its caliber and size. The upper ureter is normal. The renal pelvis is quite dilated as are the calyces. A new stent was placed in good position. DESCRIPTION OF PROCEDURE After informed consent was obtained, the patient was brought to the operating room, general anesthesia with LMA was induced. She was placed in the lithotomy position. She was prepped and draped in the usual fashion. I inserted a #22 Malian rigid cystoscope into the bladder. I saw that the bladder was filled with a great deal of mucus and debris. After filling and emptying the bladder multiple times in order to clear all this out, I was able to see the stent on the left side which I grasped and brought out to the urethral meatus. I passed a sensor wire through this but the upper portion was almost occluded and I could barely get the wire to go through. I offloaded the ureteral stent. I reintroduced the cystoscope and placed a #5 Malian open-ended ureteral catheter alongside the wire and injected contrast for retrograde. I then advanced the ureteral catheter up to the renal pelvis. The distance to the UPJ is 22 to 23 cm but given the amount of dilation of the pelvis, I chose to place a 24 cm long stent. A 6 x 24 stent was obtained, it was back-loaded on the cystoscope and was passed under visual and fluoroscopic guidance. It was placed in good position in the kidney. It drained well. Her bladder was drained. She was awoke from her anesthetic, tolerated the procedure without complication. PLAN Her stent is changed. Hopefully it will improve some of her symptoms. Will have her follow up on a regular basis with Dr. Valenzuela her usual urologist. KIMBERLY
[2016-05-20 11:11] LABS: BLOOD, URINE 2+ (NEGATIVE); COLOR,URINE YELLOW (YELLOW); LEUKOCYTE ESTERASE ,URINE 3+ (NEGATIVE); NITRITE,URINE NEGATIVE (NEGATIVE); UROBILINOGEN,URINE 0.2 EU/DL (NORMAL)
[2016-05-20 11:23] LABS: BACTERIA,URINE TRACE (NEGATIVE)
[2016-05-20] MEDS: CHOLESTYRAMINE LIGHT 4 G PACKET PO SCH (16:57)
--- NOTE | 2016-05-20 19:10 | NUR ---
Shift Summary Patient alert and oriented x3 this shift. VSS. On RA. Up ad ibrahima in room. Patient had adequate output through colostomy and urostomy. Output through colostomy liquid stool. Patient c/o abdominal pain, PRN Percocet given q2h. Patient continued to rate pain at 7-[address] Buck notified, no further pain medication orders given. Patient tolerated advanced diet to soft well with no vomiting. Some c/o nausea, managed with PRN Phenergan. IV infusing as ordered. Son present in room today.
--- NOTE | 2016-05-20 19:38 | PNPDOC ---
Subjective Date DATE: 05/20/16 TIME: 19:29 Subjective 05/20/2016 Dr. Buck note: I saw Tee Watkins in her room this afternoon. She looked good in terms of relaxed and happy. She said she taken her benzodiazepine and that is what she was in a better mood. I don't doubt that she denies any shortness of breath and denies any chest pain. He states that her tummy does hurt some and that is possible with her C. difficile. However., When I pressure in the anterior stomach to listen to her abdominal sounds in her bowel sounds very strongly she does not complain of any pain if she is distracted by her son or someone else in the room. This should tell us something extremities show no clubbing no cyanosis no edema. Admits diarrhea denies any emesis whatsoever Objective Vital Signs Vital signs Inhalers normocephalic pupils are equal reactive to light and her oropharynx is still little dry, I don't think she drinks much water Heart has a regular rate and rhythm without murmur Lungs are clear to auscultation bilaterally, no wheezing Extremities show no clubbing no cyanosis no edema Integument is warm dry with no rash but she does have several bruises on the right arm, possibly from IVs. Vital Signs Date Time Temp Pulse Resp B/P Pulse Ox O2 Delivery O2 Flow Rate FiO2 05/20/16 15:24 96.1 69 18 126/75 100 Room Air 05/19/16 15:08 6.00 Height (Feet): 5 Height (Inches): 3.00 Weight (Kilograms): 60.700 Laboratory Laboratory Laboratory Tests 05/19/16 09:26 Laboratory Tests 05/19/16 09:26 Microbiology Microbiology Microbiology Date/Time Source Procedure Growth Status 05/18/16 09:29 Not Provided Urine Culture - Preliminary Gram Positive Cocci Resulted Sepsis Diagnostic Criteria Sepsis Confirmed/Suspected Infection: Yes Assessment & Plan Problems: (1) Urinary tract infection Status: Acute Assessment & Plan: present on admission - UA 50-200 WBC with 3+ bacteria and + nitrite. Past cultures are reviewed. (2) Nausea & vomiting Status: Acute Qualifiers: Vomiting type: unspecified Vomiting Intractability: unspecified Qualified Codes: R11.2 - Nausea with vomiting, unspecified (3) Leukopenia Status: Acute Assessment & Plan: present on admission - 05/16/16 (WBC 4.2) (4) Hypokalemia Status: Acute Assessment & Plan: present on admission - 05/16/16 (K+ 2.4). (5) Chronic pain Status: Chronic (6) HTN (hypertension) Status: Chronic (7) Hypothyroidism Status: Chronic (8) Anxiety and depression Status: Chronic (9) GERD (gastroesophageal reflux disease) Status: Chronic (10) Narcotic dependence Status: Chronic (11) Tobacco dependence Status: Chronic (12) Hx of deep venous thrombosis Status: Resolved Assessment & Plan: 04/26/2014 (13) On anticoagulant therapy Status: Chronic Assessment & Plan: Xarelto (14) Seasonal allergies Status: Chronic (15) History of malignant neoplasm of colorectal region Status: Resolved Assessment & Plan: s/p colon resection. (16) Ureteral stent retained Status: Chronic Assessment & Plan: Follows with Dr. Edwards. (17) Hydronephrosis Status: Acute (18) C. difficile diarrhea Assessment & Plan: Started Flagyl 05/18 Assessment 05/18/2016 Heber note: I saw Kinga Barrett at the same time the woman from the wound care section of the hospital was in there examining her stoma. Were able to talk about the fact that she has complained today of more abdominal pain and wanted stronger pain meds. I reminded her she was on a fentanyl 100 g per hour patch and as she was getting quite a bit of additional narcotic help. She denies shortness of breath, she denied any chest pain. She did complain of that her stone was seen to be sticking out more than usual. She denied any cough ; also denied any problem walking around. Exam showed the heart to have a regular rate and rhythm without murmur; the lungs are clear to auscultation bilaterally with no wheezing; the abdomen was soft and nontender I push pretty hard wall the photo equipment technician was looking at her stoma with the patient focused on the photo equipment technician. Even though I pressed very hard on different parts the abdomen she had no complaint of pain. Her extremities are examined and no cyanosis and no edema is present. Cranial nerves II through XII are grossly intact as well. Her diagnoses include hypokalemia which was severe when she came in and which is now corrected; 2. UTI, which we are still fighting. We have cultured Klebsiella pneumoniae out of the urine. It is susceptible to Rocephin and we shall continue the Rocephin. 3. Nausea and vomiting which have resolved 4. Leukopenia which is still present 5. Anxiety 6. Chronic pain syndrome, chronic course 7. Narcotic dependency, chronic A. Nicotine addiction, chronic. Malignant neoplasm of colon and rectal area, both of which were operated to 3 years ago. 10. Hydronephrosis plans to work on that and replaced the stent tomorrow. 2 new diagnoses are 1 prolapse of stoma, with at least a 6 cm prolapse. Surgeon did a Zoll that the great extent at least temporarily until she can go to her surgeon who is Dr. Lizarraga in [place]. And another new diagnosis C. difficile bowel infection. Patient has had a C. difficile infection the past and therefore I started both the Flagyl and vancomycin on her today. In response to her complaints of pain we will increase her oral narcotic. I Have Read the Progress Note by Ms. Manzohman and Fully Agree with His Findings, Its Assessment and Plan. On the left and I believe that Dr. Jorge THORPE RD Plan/Intensity of Service 05/20/2016 Ariana Serrano diagnoses currently are the followin UTI, I think this is probably chronic because she has a stone in her kidney, I believe the right kidney which probably carrying the bacteria. Her urine just can't seem to clear up. 2 nausea and vomiting, resolved 3. Leukopenia, chronic today her white count is about to 2500 hypokalemia, resolved 5. Chronic pain syndrome 6. Hypertension, controlled 7. Hypothyroidism, chronic A. Anxiety, chronic 9. Narcotic dependence, chronic 10. GERD, chronic 11. Tobacco dependence, chronic 12. Ureteral stent, replaced by Dr. Patel yesterday ablated 13 Clostridium difficile infection of the colon 14. Recurrent prolapse of the colon into her stoma sometimes as much as 7 or 8 cm our plan is to continue present care I think I will try to get a Dr. Bennett consult on the infection Code Status Full Code Hospital Course Summary Disclaimer The hospital course summary below is not to be considered part of the above Progress Note. Hospital Course Summary 05/16/16: [place].ADMIT. UTI with pyuria-acute (present on admission) * Admit under the care of Dr. Buck to observation status * Initiate Rocephin 1g IV daily for antimicrobial coverage of urinary pathogen - first dose given in ED. UA culture pending. Monitor sensitivities and adjust treatment as indicated. * Monitor urinary output as well as daily weights for signs of fluid overload. * NS 125cc/hr for hydration. Nausea/Vomiting-acute * Acute on chronic - continue Zofran for nausea/vomiting; clear liquid diet as tolerated. Leukopenia-acute (present on admission) * WBC 4.2 - recheck CBC in AM and monitor trends closely. Hypokalemia-acute (present on admission) * K+ 2.4 - KCL IV boluses x 4 initiated in ED. Recheck BMP at 2000 to monitor potassium and renal function. Monitor closely on telemetry. Chronic Pain * Continue home pain medications including [place] and Fentanyl patch with Gabapentin. Monitor closely for signs of constipation. Will hold stool softeners in light of report of diarrhea. CT abdomen/pelvis showed no acute changes. If diarrhea persists, consider GI panel. Narcotic Dependence-chronic * Patient on multiple home narcotics for chronic pain. May be difficult to control pain while hospitalized. Caution with additional narcotic pain medications. Tobacco Dependence * Smoking cessation encouraged. Hypertension-chronic * No listed blood pressure medication on APR. Monitor blood pressure closely and treat as indicated. Hypothyroid-chronic * Will recheck TSH now in light of concerns of hyperthyroidism. Continue home Synthroid. Anxiety and Depression-chronic * Continue home Klonopin, Zoloft and Trazodone. History of DVT with chronic anticoagulation-resolved * Continue anticoagulation with Xeralto. Encourage ambulation as able and SCDs for DVT prophylaxis. GERD-chronic * Continue home Prilosec for GI protection and GERD. Seasonal Allergic Rhinitis-chronic * Continue home Flonase History of malignant neoplasm of the colorectal region-resolved. * Colostomy care Upon discharge, patient's care will be returned to her PCP, Dr. Guzmán. 05/17/16- [place] *UTI- Hx of polyorganism infection Continue Ceftriaxone. +GNR, await final culture. Prior cultures reviewed. Hx of renal stent with concern for worsening hydronephrosis, stent occlusion. Dr. Bennett has seen patient in the past-- will consult to evaluate. She is fairly asymptomatic. *Recent diarrhea, GI upset- Improved. ADAT. Continue IVF. Slowly advance diet as tolerated. *Hypokalemia- Continue replacement via IVF and oral. Will decrease oral replacement to BID. Assess Inz Calcium given low Calcium (low albumin). May need to replace. Mag ok. *Cardiac ectopy- continue tele as we normalize electrolytes. *Hx of rectal cancer with ostomy- supportive care. *Hx of DVT- xarelto. (confirm dose). *Acute on chronic pain- will increase PRN percocet to Q 4 hours PRN pain. Leave remainder of meds alone. She will need at least another 24 hours of close monitoring and electrolyte replacement. Ongoing IV fluid, electrolyte replacement and IV antibiotics. Needs urology consult. Change to inpatient status due to ongoing care needs. 05/18/16 Unfortunately, patient was positive for C. difficile this morning. Will place patient in contact precautions and start oral Flagyl She was seen by Dr. Patel urologist this morning who recommends left stent change tomorrow. Patient did receive 1 dose of Xarelto last evening. Will have to speak further with Dr. Patel if this will influence procedure tomorrow. Xarelto held for now. Will continue with clear liquid diet for now as she continues to have intermittent nausea. Potassium this morning is elevated at 5.2, phosphorus is low at 1.9 Creatinine remains stable at 1.4 Discuss further plan of care with REGINE Francisco DO May 20, 2016 19:33
[2016-05-20] MEDS: ONDANSETRON 4mg/2ml INJECTION IV PRN (23:55)
[2016-05-21] MEDS: NORMAL SALINE 1,000 ML IV SCH ×3 (01:17→12:20)
[2016-05-21] MEDS: METRONIDAZOLE IVPB 500 MG in NORMAL SALINE 100 ML IV SCH ×3 (03:24→21:13)
[2016-05-21 03:28] VITALS: BP 120/68; PULSE 76; RESP 16; TEMP 96.6; O2SAT 96
--- NOTE | 2016-05-21 05:18 | NUR ---
summary pt remains on room air. vss. prn percocet given x4 hrs, see emar 10/01 pain. up ad ibrahima, ambulated in hallway this shift. prn zofran given for nausea. patient has rested well. no new concerns. son at bedside.
[2016-05-21] MEDS: OMEPRAZOLE 20 MG CAPSULE PO SCH (05:51)
[2016-05-21] MEDS: LEVOTHYROXINE 75 MCG TABLET PO SCH (05:51)
[2016-05-21 07:38] VITALS: BP 106/69; PULSE 68; RESP 16; TEMP 97; O2SAT 98
[2016-05-21] MEDS: GABAPENTIN 300 MG CAPSULE PO SCH ×2 (07:51→21:15)
[2016-05-21] MEDS: SERTRALINE 100 MG TABLET PO SCH ×2 (07:52→21:15)
[2016-05-21] MEDS: NICOTINE 14 MG PATCH TD SCH (07:53)
[2016-05-21] MEDS: CHOLESTYRAMINE LIGHT 4 G PACKET PO SCH ×2 (07:54→21:15)
[2016-05-21] MEDS: NICOTINE PATCH REMOVAL TD SCH (07:54)
[2016-05-21] MEDS: FLUTICASONE NASAL SPRAY 50 MCG EA NOSTRIL SCH (07:55)
[2016-05-21] MEDS: CEFTRIAXONE 1 G in NORMAL SALINE 100 ML IV SCH (07:55)
[2016-05-21 08:00] VITALS: PULSE 68; RESP 16
[2016-05-21] MEDS: ONDANSETRON 4mg/2ml INJECTION IV PRN (08:00)
--- NOTE | 2016-05-21 08:00 | NUR ---
Received report Patient is alert and oriented. Verbalizes pain to the abdomen at 6/10. Patient receives Percocet q4. Colostomy intact. Urostomy intact. Patient on room air. Vital signs stable. NS running at 100ml/hr per left wrist PIV. No other concerns at this time. Maintains contact precautions for C-Diff.
[2016-05-21 12:00] VITALS: BP 105/67; PULSE 77; RESP 14; TEMP 96.7; O2SAT 97
[2016-05-21] MEDS: PROMETHAZINE 6.25 MG/5 ML PO PRN (12:23)
--- NOTE | 2016-05-21 13:50 | PNPDOC ---
Subjective Date DATE: 05/21/16 TIME: 13:41 Subjective 05/21/2016 Dr. Buck note: Kinga Barrett looked quite relaxed and happy when I went into her room today. Her son was there with her as usual. She denied any shortness of breath; she denied any chest pain. He did not complain of abdominal pain although I know she claims to be having some more or less continuously. He complains of no pain in her legs when walking in the halls. She does not complain of dysuria. Objective Vital Signs Vital signs Heart demonstrates a regular rate and rhythm without murmur; Lungs are clear to auscultation bilaterally without wheezing or crackles Abdomen is soft, nontender bowel sounds are physiologic Extremities show no clubbing or cyanosis. Patient is alert and oriented 3. Vital Signs Date Time Temp Pulse Resp B/P Pulse Ox O2 Delivery O2 Flow Rate FiO2 05/21/16 12:00 96.7 77 14 105/67 97 Room Air 05/19/16 15:08 6.00 Height (Feet): 5 Height (Inches): 3.00 Weight (Kilograms): 61.100 Sepsis Diagnostic Criteria Sepsis Confirmed/Suspected Infection: Yes Assessment & Plan Problems: (1) Urinary tract infection Status: Acute Assessment & Plan: present on admission - UA 50-200 WBC with 3+ bacteria and + nitrite. Past cultures are reviewed. (2) Nausea & vomiting Status: Acute Qualifiers: Vomiting type: unspecified Vomiting Intractability: unspecified Qualified Codes: R11.2 - Nausea with vomiting, unspecified (3) Leukopenia Status: Acute Assessment & Plan: present on admission - 05/16/16 (WBC 4.2) (4) Hypokalemia Status: Acute Assessment & Plan: present on admission - 05/16/16 (K+ 2.4). (5) Chronic pain Status: Chronic (6) HTN (hypertension) Status: Chronic (7) Hypothyroidism Status: Chronic (8) Anxiety and depression Status: Chronic (9) GERD (gastroesophageal reflux disease) Status: Chronic (10) Narcotic dependence Status: Chronic (11) Tobacco dependence Status: Chronic (12) Hx of deep venous thrombosis Status: Resolved Assessment & Plan: 04/26/2014 (13) On anticoagulant therapy Status: Chronic Assessment & Plan: Xarelto (14) Seasonal allergies Status: Chronic (15) History of malignant neoplasm of colorectal region Status: Resolved Assessment & Plan: s/p colon resection. (16) Ureteral stent retained Status: Chronic Assessment & Plan: Follows with Dr. Edwards. (17) Hydronephrosis Status: Acute (18) C. difficile diarrhea Assessment & Plan: Started Flagyl 05/18 Assessment 05/18/2016 [place] note: I saw Kinga Barrett at the same time the woman from the wound care section of the hospital was in there examining her stoma. Were able to talk about the fact that she has complained today of more abdominal pain and wanted stronger pain meds. I reminded her she was on a fentanyl 100 g per hour patch and as she was getting quite a bit of additional narcotic help. She denies shortness of breath, she denied any chest pain. She did complain of that her stone was seen to be sticking out more than usual. She denied any cough ; also denied any problem walking around. Exam showed the heart to have a regular rate and rhythm without murmur; the lungs are clear to auscultation bilaterally with no wheezing; the abdomen was soft and nontender I push pretty hard wall the poured concrete wall technician was looking at her stoma with the patient focused on the poured concrete wall technician. Even though I pressed very hard on different parts the abdomen she had no complaint of pain. Her extremities are examined and no cyanosis and no edema is present. Cranial nerves II through XII are grossly intact as well. Her diagnoses include hypokalemia which was severe when she came in and which is now corrected; 2. UTI, which we are still fighting. We have cultured Klebsiella pneumoniae out of the urine. It is susceptible to Rocephin and we shall continue the Rocephin. 3. Nausea and vomiting which have resolved 4. Leukopenia which is still present 5. Anxiety 6. Chronic pain syndrome, chronic course 7. Narcotic dependency, chronic A. Nicotine addiction, chronic. Malignant neoplasm of colon and rectal area, both of which were operated to 3 years ago. 10. Hydronephrosis plans to work on that and replaced the stent tomorrow. 2 new diagnoses are 1 prolapse of stoma, with at least a 6 cm prolapse. Surgeon did a Zoll that the great extent at least temporarily until she can go to her surgeon who is Dr. Lizarraga in [place]. And another new diagnosis C. difficile bowel infection. Patient has had a C. difficile infection the past and therefore I started both the Flagyl and vancomycin on her today. In response to her complaints of pain we will increase her oral narcotic. I Have Read the Progress Note by Ms. Manzohman and Fully Agree with His Findings, Its Assessment and Plan. On the left and I believe that Dr. Patel BY MALISSA Plan/Intensity of Service 05/21/2016 LUIS M Barrett has the following diagnoses: UTI, with at least 2 different organisms identified in her urine which were pathological; 2. Nausea and vomiting, resolved 3. Leukopenia which remains 4. Hypokalemia which is resolved; 5. Chronic pain syndrome 6. Hypertension, chronic 7. Hypothyroidism, chronic A. Narcotic dependency; 9. Tobacco dependency; 10. On anticoagulant therapy; 11. History of malignant colon cancer and malignant rectal cancer 12. A new problem: Clostridium difficile infection of the bowel; 13. Prolapse of bowel into stoma. I have asked the nurses to correctional counselor/case manager Dr. Bennett because of her having trouble getting her urine cleared up and the right kidney believe has a stone which may be retaining some impacting bacteria; the second bug culture not associated amoxicillin, and since she has been on Rocephin for 5 days I would I think we have the first were knocked out. Amoxicillin 500 3 times a day by mouth to try to take care of the second pathogen we've isolated and cultured from her urine. She remains on plenty of pain meds and did not ask me for any problems in the room. Hopefully wean discharge her in another day or 2. I know Dr. Villanueva wanted to watch that the prolapse reduced or 2 to see if it which drink any with the procedure she used. Code Status Full Code Hospital Course Summary Disclaimer The hospital course summary below is not to be considered part of the above Progress Note. Hospital Course Summary 05/16/16: [place].ADMIT. UTI with pyuria-acute (present on admission) * Admit under the care of Dr. Buck to observation status * Initiate Rocephin 1g IV daily for antimicrobial coverage of urinary pathogen - first dose given in ED. UA culture pending. Monitor sensitivities and adjust treatment as indicated. * Monitor urinary output as well as daily weights for signs of fluid overload. * NS 125cc/hr for hydration. Nausea/Vomiting-acute * Acute on chronic - continue Zofran for nausea/vomiting; clear liquid diet as tolerated. Leukopenia-acute (present on admission) * WBC 4.2 - recheck CBC in AM and monitor trends closely. Hypokalemia-acute (present on admission) * K+ 2.4 - KCL IV boluses x 4 initiated in ED. Recheck BMP at 2000 to monitor potassium and renal function. Monitor closely on telemetry. Chronic Pain * Continue home pain medications including [place] and Fentanyl patch with Gabapentin. Monitor closely for signs of constipation. Will hold stool softeners in light of report of diarrhea. CT abdomen/pelvis showed no acute changes. If diarrhea persists, consider GI panel. Narcotic Dependence-chronic * Patient on multiple home narcotics for chronic pain. May be difficult to control pain while hospitalized. Caution with additional narcotic pain medications. Tobacco Dependence * Smoking cessation encouraged. Hypertension-chronic * No listed blood pressure medication on APR. Monitor blood pressure closely and treat as indicated. Hypothyroid-chronic * Will recheck TSH now in light of concerns of hyperthyroidism. Continue home Synthroid. Anxiety and Depression-chronic * Continue home Klonopin, Zoloft and Trazodone. History of DVT with chronic anticoagulation-resolved * Continue anticoagulation with Xeralto. Encourage ambulation as able and SCDs for DVT prophylaxis. GERD-chronic * Continue home Prilosec for GI protection and GERD. Seasonal Allergic Rhinitis-chronic * Continue home Flonase History of malignant neoplasm of the colorectal region-resolved. * Colostomy care Upon discharge, patient's care will be returned to her PCP, Dr. Guzmán. 05/17/16- [place] *UTI- Hx of polyorganism infection Continue Ceftriaxone. +GNR, await final culture. Prior cultures reviewed. Hx of renal stent with concern for worsening hydronephrosis, stent occlusion. Dr. Bennett has seen patient in the past-- will consult to evaluate. She is fairly asymptomatic. *Recent diarrhea, GI upset- Improved. ADAT. Continue IVF. Slowly advance diet as tolerated. *Hypokalemia- Continue replacement via IVF and oral. Will decrease oral replacement to BID. Assess Inz Calcium given low Calcium (low albumin). May need to replace. Mag ok. *Cardiac ectopy- continue tele as we normalize electrolytes. *Hx of rectal cancer with ostomy- supportive care. *Hx of DVT- xarelto. (confirm dose). *Acute on chronic pain- will increase PRN percocet to Q 4 hours PRN pain. Leave remainder of meds alone. She will need at least another 24 hours of close monitoring and electrolyte replacement. Ongoing IV fluid, electrolyte replacement and IV antibiotics. Needs urology consult. Change to inpatient status due to ongoing care needs. 05/18/16 Unfortunately, patient was positive for C. difficile this morning. Will place patient in contact precautions and start oral Flagyl She was seen by Dr. Patel urologist this morning who recommends left stent change tomorrow. Patient did receive 1 dose of Xarelto last evening. Will have to speak further with Dr. Patel if this will influence procedure tomorrow. Xarelto held for now. Will continue with clear liquid diet for now as she continues to have intermittent nausea. Potassium this morning is elevated at 5.2, phosphorus is low at 1.9 Creatinine remains stable at 1.4 Discuss further plan of care with REGINE Francisco DO May 21, 2016 13:44
[2016-05-21] MEDS: AMOXICILLIN 500 MG CAPSULE PO SCH ×2 (14:00→21:14)
--- NOTE | 2016-05-21 15:23 | NUR ---
DR. BENNETT Received phone call from DR. Bennett's office. DR. Bennett will not be seeing the patient because DR. Patel is on the case. DR. Buck notified. DR. Bennett's consult canceled.
[2016-05-21] MEDS: CLONAZEPAM 0.5 MG TABLET PO PRN (15:44)
[2016-05-21 16:00] VITALS: BP 121/59; PULSE 77; RESP 16; O2SAT 95
--- NOTE | 2016-05-21 16:55 | NUR ---
CM THIS WORKER ATTEMPTED TO VISIT PT AT THIS TIME, SON ADVISED THIS WORKER TO COME BACK LATER DUE TO PAIN. SPOKE TO RN TO CONFIRMED THIS AND WAS AWARE.
--- NOTE | 2016-05-21 18:41 | NUR ---
EOS Patient resting in no distress. Patient has been needing pain medications every 4hrs as its due. No concerns reported today.
[2016-05-21 20:00] VITALS: BP 108/67; PULSE 79; RESP 18; TEMP 98.8; O2SAT 92
--- NOTE | 2016-05-21 21:30 | NUR ---
PRN PT WAS GIVEN PAIN MEDICATION PER HER REQUEST FOR ABDOMINAL PAIN. I BED WATCHING TV. SON AT BEDSIDE.
[2016-05-22] VITALS (7 sets, daily range): BP systolic 103–131; BP diastolic 61–69; PULSE 70–86; RESP 16–20; TEMP 96.3–98.6; O2SAT 90–95
[2016-05-22] MEDS: NORMAL SALINE 1,000 ML IV SCH ×2 (02:32→11:44)
[2016-05-22] MEDS: TRAZODONE 50 MG TABLET PO PRN (03:16)
--- NOTE | 2016-05-22 03:20 | NUR ---
PRN PT WAS GIVEN PAIN MEDICATION AND TRAZODONE PER HER REQUEST FOR ABDOMINAL PAIN.
[2016-05-22] MEDS: METRONIDAZOLE IVPB 500 MG in NORMAL SALINE 100 ML IV SCH ×2 (04:00→11:44)
[2016-05-22 05:14] LABS: ANION GAP 9 MEQ/L (5-15); BUN/CREATININE RATIO 4 RATIO (6-26); CALCIUM 6.7 MG/DL (8.4-10.2); CHLORIDE 116 MEQ/L (98-107); CO2 - CARBON DIOXIDE 20 MEQ/L (22-30); GLOMERULAR FILTRATION RATE 59; GLUCOSE 113 MG/DL (65-110); POTASSIUM 3.9 MEQ/L (3.6-5); SODIUM 145 MEQ/L (134-144)
[2016-05-22] MEDS: AMOXICILLIN 500 MG CAPSULE PO SCH ×3 (05:53→22:37)
[2016-05-22] MEDS: LEVOTHYROXINE 75 MCG TABLET PO SCH (05:53)
[2016-05-22] MEDS: OMEPRAZOLE 20 MG CAPSULE PO SCH (05:57)
--- NOTE | 2016-05-22 06:57 | NUR ---
SUMMARY PT AWAKE. ALERT AND ORIENTED. ABLE TO VOICE NEEDS TO THE STAFFS. WAS GIVEN PAIN MEDICATION PER HER REQUEST FOR 8/10 PAIN THIS SHIFT.UROSTOMY AND COLOSTOMY INTACT. PT WAS EDUCATED ABOUT CALL LIGHT USE AND SAFETY. AMBULATE SELF TO THE BATHROOM. SON AT BEDSIDE. CONTINUES ON IV FLUIDS VIA PIV THAT SHE TOLERATES WELL.
[2016-05-22] MEDS: PROMETHAZINE 6.25 MG/5 ML PO PRN ×3 (07:50→22:38)
[2016-05-22] MEDS: NICOTINE PATCH REMOVAL TD SCH (09:05)
[2016-05-22] MEDS: GABAPENTIN 300 MG CAPSULE PO SCH ×2 (09:05→22:37)
[2016-05-22] MEDS: NICOTINE 14 MG PATCH TD SCH (09:05)
[2016-05-22] MEDS: SERTRALINE 100 MG TABLET PO SCH ×2 (09:06→22:47)
[2016-05-22] MEDS: FLUTICASONE NASAL SPRAY 50 MCG EA NOSTRIL SCH (09:32)
[2016-05-22] MEDS: CHOLESTYRAMINE LIGHT 4 G PACKET PO SCH ×2 (09:53→22:38)
[2016-05-22] MEDS: CLONAZEPAM 0.5 MG TABLET PO PRN (13:40)
--- NOTE | 2016-05-22 16:09 | PNPDOC ---
Subjective Date DATE: 05/22/16 TIME: 15:53 Subjective F/U: Hypokalemia, UTI, C diff diarrhea About the same. Appetite decreased; not very hungry. Nausea at times. Passing liquid stool out ostomy. Feels tired and weak, not up much. Still with ab pain, but medications helping. Breathing well. Notes some urinary incontinence. Objective Vital Signs Vital signs Vital Signs Date Time Temp Pulse Resp B/P Pulse Ox O2 Delivery O2 Flow Rate FiO2 05/22/16 12:58 96.3 73 16 103/63 93 Room Air 05/19/16 15:08 6.00 Height (Feet): 5 Height (Inches): 3.00 Weight (Kilograms): 62.300 General General Appearance: Alert, Orientated x 3, Well Nourished, Well Developed, Cooperative, Looks Stated Age Eyes (Brief) Eyes: FOUND: EOMI, PERRL, NOT FOUND: scleral icterus ENMT (Brief) ENMT: FOUND: hearing intact, mucosa moist Neck (Brief) Neck: FOUND: nuchal rigidity, spasm, NOT FOUND: midline Respiratory (Brief) Respiratory: FOUND: clear all rodriguez, equal bilaterally, NOT FOUND: rales, wheezes Cardiovascular (Brief) Cardiac: FOUND: regular rate, regular rhythm Abdomen (Brief) Abdominal: FOUND: soft, tender (Mild diffuse ), NOT FOUND: BS normo active x4 ( decreased ), distended Extremities (Brief) Extremity : Side: Bilateral Extremity: leg Extremity Finding: FOUND: edema (Trace ) Musculoskeletal (Brief) Musculoskeletal: FOUND: extremities move equally, NOT FOUND: deformity, spasm, tenderness Integumentary (Brief) Integumentary: FOUND: dry, warm Neurologic (Brief) Neurological: FOUND: cranial 2-12 intact, motor (intact ) Psychiatric (Brief) Psychiatric: FOUND: alert, attentive, normal affect, oriented Laboratory Laboratory Laboratory Tests 05/22/16 04:24 Sepsis Diagnostic Criteria Sepsis Confirmed/Suspected Infection: Yes Assessment & Plan Problems: (1) Urinary tract infection Status: Acute Assessment & Plan: present on admission - UA 50-200 WBC with 3+ bacteria and + nitrite. Past cultures are reviewed. (2) C. difficile diarrhea Assessment & Plan: Started Flagyl 05/18 (3) Nausea & vomiting Status: Acute Qualifiers: Vomiting type: unspecified Vomiting Intractability: unspecified Qualified Codes: R11.2 - Nausea with vomiting, unspecified (4) Leukopenia Status: Acute Assessment & Plan: present on admission - 05/16/16 (WBC 4.2) (5) Hypokalemia Status: Acute Assessment & Plan: present on admission - 05/16/16 (K+ 2.4). (6) Chronic pain Status: Chronic (7) HTN (hypertension) Status: Chronic (8) Hypothyroidism Status: Chronic (9) Anxiety and depression Status: Chronic (10) GERD (gastroesophageal reflux disease) Status: Chronic (11) Narcotic dependence Status: Chronic (12) Tobacco dependence Status: Chronic (13) Hx of deep venous thrombosis Status: Resolved Assessment & Plan: 04/26/2014 (14) On anticoagulant therapy Status: Chronic Assessment & Plan: Xarelto (15) Seasonal allergies Status: Chronic (16) History of malignant neoplasm of colorectal region Status: Resolved Assessment & Plan: s/p colon resection. (17) Ureteral stent retained Status: Chronic Assessment & Plan: Follows with Dr. Edwards. (18) Hydronephrosis Status: Acute Plan/Intensity of Service Will d/c IVF as taking po. Change metronidazole to po for better treatment of C diff. Encourage ambulation. Start potassium 10mEg TID with meals as potassium decreasing. Restart Xarelto. Recheck CMP in am due to medication use. Repeat CBC in am due to UTI and C diff. Hope for home in near future. Case discussed with nursing and CM. Time spent with pt care 35 minutes. DVT Prophylaxis: Xarelto Code Status Full Code Hospital Course Summary Disclaimer The hospital course summary below is not to be considered part of the above Progress Note. Hospital Course Summary 05/16/16: [place].ADMIT. UTI with pyuria-acute (present on admission) * Admit under the care of Dr. Buck to observation status * Initiate Rocephin 1g IV daily for antimicrobial coverage of urinary pathogen - first dose given in ED. UA culture pending. Monitor sensitivities and adjust treatment as indicated. * Monitor urinary output as well as daily weights for signs of fluid overload. * NS 125cc/hr for hydration. Nausea/Vomiting-acute * Acute on chronic - continue Zofran for nausea/vomiting; clear liquid diet as tolerated. Leukopenia-acute (present on admission) * WBC 4.2 - recheck CBC in AM and monitor trends closely. Hypokalemia-acute (present on admission) * K+ 2.4 - KCL IV boluses x 4 initiated in ED. Recheck BMP at 1999 to monitor potassium and renal function. Monitor closely on telemetry. Chronic Pain * Continue home pain medications including [place] and Fentanyl patch with Gabapentin. Monitor closely for signs of constipation. Will hold stool softeners in light of report of diarrhea. CT abdomen/pelvis showed no acute changes. If diarrhea persists, consider GI panel. Narcotic Dependence-chronic * Patient on multiple home narcotics for chronic pain. May be difficult to control pain while hospitalized. Caution with additional narcotic pain medications. Tobacco Dependence * Smoking cessation encouraged. Hypertension-chronic * No listed blood pressure medication on APR. Monitor blood pressure closely and treat as indicated. Hypothyroid-chronic * Will recheck TSH now in light of concerns of hyperthyroidism. Continue home Synthroid. Anxiety and Depression-chronic * Continue home Klonopin, Zoloft and Trazodone. History of DVT with chronic anticoagulation-resolved * Continue anticoagulation with Xeralto. Encourage ambulation as able and SCDs for DVT prophylaxis. GERD-chronic * Continue home Prilosec for GI protection and GERD. Seasonal Allergic Rhinitis-chronic * Continue home Flonase History of malignant neoplasm of the colorectal region-resolved. * Colostomy care Upon discharge, patient's care will be returned to her PCP, Dr. Guzmán. 05/17/16- [place] *UTI- Hx of polyorganism infection Continue Ceftriaxone. +GNR, await final culture. Prior cultures reviewed. Hx of renal stent with concern for worsening hydronephrosis, stent occlusion. Dr. Bennett has seen patient in the past-- will consult to evaluate. She is fairly asymptomatic. *Recent diarrhea, GI upset- Improved. ADAT. Continue IVF. Slowly advance diet as tolerated. *Hypokalemia- Continue replacement via IVF and oral. Will decrease oral replacement to BID. Assess Inz Calcium given low Calcium (low albumin). May need to replace. Mag ok. *Cardiac ectopy- continue tele as we normalize electrolytes. *Hx of rectal cancer with ostomy- supportive care. *Hx of DVT- xarelto. (confirm dose). *Acute on chronic pain- will increase PRN percocet to Q 4 hours PRN pain. Leave remainder of meds alone. She will need at least another 24 hours of close monitoring and electrolyte replacement. Ongoing IV fluid, electrolyte replacement and IV antibiotics. Needs urology consult. Change to inpatient status due to ongoing care needs. 05/18/16 Unfortunately, patient was positive for C. difficile this morning. Will place patient in contact precautions and start oral Flagyl She was seen by Dr. Patel urologist this morning who recommends left stent change tomorrow. Patient did receive 1 dose of Xarelto last evening. Will have to speak further with Dr. Patel if this will influence procedure tomorrow. Xarelto held for now. Will continue with clear liquid diet for now as she continues to have intermittent nausea. Potassium this morning is elevated at 5.2, phosphorus is low at 1.9 Creatinine remains stable at 1.4 Discuss further plan of care with Dr. Buck 05/19 Patient got a new nephrostomy tube I believe on the left today, and our current plan is to continue to treat the Clostridium difficile with the oral vancomycin and I have change the Flagyl to IV Flagyl. We shall follow Dr. Ryan a suggestion that a more definitive treatment for her prolapse will be given by her surgeon, Dr. Lizarraga, probably practices a lot at [facility]. 05/20 Plan is to continue present care I think I will try to get a Dr. Bennett consult on the infection 05/21 I have asked the nurses to consult Dr. Bennett because of her having trouble getting her urine cleared up and the right kidney believe has a stone which may be retaining some impacting bacteria; the second bug culture not associated amoxicillin, and since she has been on Rocephin for 5 days I would I think we have the first were knocked out. Amoxicillin 500 3 times a day by mouth to try to take care of the second pathogen we've isolated and cultured from her urine. She remains on plenty of pain meds and did not ask me for any problems in the room. Hopefully wean discharge her in another day or 2. I know Dr. Villanueva wanted to watch that the prolapse reduced or 2 to see if it which drink any with the procedure she used. Consult place with Dr Donald sol as pt being followed by a different urologist. 05/22 About the same. Appetite decreased; not very hungry. Nausea at times. Passing liquid stool out ostomy. Feels tired and weak, not up much. Still with ab pain, but medications helping. Breathing well. Notes some urinary incontinence. Will d/c IVF as taking po. Change metronidazole to po for better treatment of C diff. Encourage ambulation. Start potassium 10mEg TID with meals as potassium decreasing. Restart Xarelto. Recheck CMP in am due to medication use. Repeat CBC in am due to UTI and C diff. Hope for home in near future. LUIS MANUEL HOUGH MD May 22, 2016 15:56
[2016-05-22] MEDS: METRONIDAZOLE 500 MG TABLET PO SCH (17:24)
[2016-05-22] MEDS: POTASSIUM CHLORIDE 10 MEQ TABLET PO SCH (17:25)
[2016-05-22] MEDS ORDERED: MAGNESIUM OXIDE 400 MG TABLET PO ONE (17:30)
[2016-05-22] MEDS: RIVAROXABAN 20 MG TABLET PO SCH (17:32)
--- NOTE | 2016-05-22 18:07 | NUR ---
shift status Medicated q 4 hr for abd pain Phenergan given x2. eats small amts, no emesis. Urostomy and colostmy patent did change colostomy wafer and bag stoma is red in color.son at bedside reamins in contact precautions encouraged to walk around in room and sit in chair. continue to observe
--- NOTE | 2016-05-22 23:43 | NUR ---
NEPHROSTOMY NOTE PT EMPTIED OVERFLOWING NEPHROSTOMY BAG APPROXIMATE OUTPUT 1000ML. BEDDING REQUIRED CHANGING DUE TO OVER FLOW. PT ALSO HAD URINE OUTPUT OF 200ML. Addendum: 05/22/16 at 2345 by JOI NUNEZ RN Amended: Links added.
[2016-05-23] VITALS (11 sets, daily range): BP systolic 96–112; BP diastolic 62–90; PULSE 72–80; RESP 16–28; TEMP 96.9–97.4; O2SAT 74–95
--- NOTE | 2016-05-23 01:20 | NUR ---
STATUS PT REPORTS SHE IS FEELING SOA, STILL HAVING PAIN, AND COMPLAINT OF NAUSEA. OXYGEN SATURATION REPORTED 88% ON ROOM AIR. PT ASSESSED AT THIS TIME NOTED TO BE HUNCHED SLOUCHING IN BED TAKING SHALLOW TACHY RESPIRATIONS. PT SAT UP IN BED INSTRUCTED TO TAKE DEEP BREATHS. PT OXYGEN SATURATION UP TO 92-94% ON ROOM AIR. HOWEVER PT UNABLE TO MAINTAIN POSITION AND BREATHING PATTERN AND SATURATIONS CONTINUE TO DROP INTO UPPER 80% RANGE. PT PLACED ON OXYGEN 2L NASAL CANULA AND LEFT ON SP02 MONITOR TO CONTINUE MONITORING. SEE EMAR FOR PRN NAUSEA MEDICATION GIVEN. EDUCATION GIVEN TO PT AND FAMILY AT BEDSIDE THE EFFECTS OF NARCOTIC PAIN MEDICATIONS IN COMBINATION WITH PHENERGAN NAUSEA MEDICATION (BOTH PREVIOUSLY GIVEN) ON THE RESPIRATORY SYSTEM AND THE EFFECTS OF BEING IN HOSPITAL BED FOR EXTENDED PERIODS ON THE RESPIRATORY SYSTEM. PT ENCOURAGED TO DEEP BREATH AND COUGH FROM TIME TO TIME. PT EDUCATED AND VERBALIZES UNDERSTANDING OF EDUCATION.
[2016-05-23] MEDS: ONDANSETRON 4mg/2ml INJECTION IV PRN ×2 (01:30→09:28)
[2016-05-23] MEDS: METRONIDAZOLE 500 MG TABLET PO SCH ×3 (01:33→17:08)
--- NOTE | 2016-05-23 02:17 | NUR ---
STATUS FOLLOW UP PT MORE COMFORTABLE SITTING UP BETTER IN BED. NAUSEA IS DECREASED FOLLOWING PRN ZOFRAN SEE EMAR. PT STILL REPORTS PAIN. EDUCATION GIVEN ON USE OF NARCOTIC PAIN MEDICATIONS AND TIME FRAMES OF ADMINISTRATION. PT VERBALIZES UNDERSTANDING AND IS COMFORTABLE AT THIS TIME WITH NO FURTHER QUESTIONS CONCERNS OR COMPLAINTS. PT LUNGS ARE CLEAR BILATERALLY, OXYGEN SATURATION 97% ON 2L NC. WILL CONTINUE TO MONITOR.
--- NOTE | 2016-05-23 04:14 | NUR ---
STATUS PT SLEEPING PULSE 74 OXYGEN 95% 2L NC. PT HAS NOT USED CALL LIGHT OR HAD ANY COMPLAINTS SINCE PREVIOUS NOTE, PT HAS BEEN SLEEPING WELL WITH FAMILY SLEEPING AT BEDSIDE.
[2016-05-23] MEDS: AMOXICILLIN 500 MG CAPSULE PO SCH ×3 (05:27→21:33)
--- NOTE | 2016-05-23 05:28 | NUR ---
PRN MEDICATION PT REPORTS LOWER ABDOMINAL PAIN RATED 8 OUT OF 10 REQUESTED "PAIN PILL" FOR PAIN. UPON ENTERING ROOM PT SLEEPING. PT STILL ON OXYGEN AND MONITORING CURRENT OXYGEN SATURATION 93% ON 2L NC WITH HEART RATE 73. PT REPORTS NAUSEA IS IMPROVED BUT PAIN REMAINS THE SAME.
[2016-05-23] MEDS: LEVOTHYROXINE 75 MCG TABLET PO SCH (05:30)
[2016-05-23] MEDS: OMEPRAZOLE 20 MG CAPSULE PO SCH (05:30)
[2016-05-23 05:34] LABS: HGB - HEMOGLOBIN 7.9 GM/DL (12-16); MEAN CORPUSCULAR HGB 29.3 UUG (26-34); MEAN CORPUSCULAR HGB CONC(MCHC 31.6 GM/DL (31-37); MEAN CORPUSCULAR VOLUME 92.6 UM3 (80-100); MEAN PLATELET VOLUME 11.1 UM3 (9.4-12.4)
[2016-05-23 05:47] LABS: ALBUMIN 1.6 G/DL (3.5-5.0); ALBUMIN/GLOBULIN RATIO 0.6 RATIO (1.1-2.2); ALKALINE PHOSPHATASE 116 U/L (38-126); ALT (SGPT) 32 U/L (9-52); ANION GAP 7 MEQ/L (5-15); AST (SGOT) 17 U/L (14-36); BUN/CREATININE RATIO 4 RATIO (6-26); CHLORIDE 117 MEQ/L (98-107); CO2 - CARBON DIOXIDE 19 MEQ/L (22-30); CREATININE 0.9 MG/DL (0.7-1.2); GLOMERULAR FILTRATION RATE 67; GLUCOSE 116 MG/DL (65-110); MAGNESIUM 1.4 MG/DL (1.6-2.3); SODIUM 143 MEQ/L (134-144); TOTAL PROTEIN 4.5 G/DL (6.3-8.2)
[2016-05-23 06:55] LABS: BAND NEUTROPHILS # 0.1 T/MM3; LYMPHOCYTES # (MANUAL) 0.7 T/MM3 (1-4.8); MONOCYTES # (MANUAL) 0.1 T/MM3 (0-0.8); NEUTROPHILS #(MANUAL)-ABSOLUTE 8.1 T/MM3 (1.8-7.7); TOTAL CELLS COUNTED 100 %
--- NOTE | 2016-05-23 06:56 | NUR ---
SHIFT SUMMARY PT ON C-DIFF PRECAUTIONS. PT A&O X3. PT SON AT BEDSIDE WHOLE SHIFT AND ALL PRIOR SHIFTS. PT COMPLAINT OF LOWER ABDOMINAL PAIN AND NAUSEA. PT GIVEN MULTIPLE PRN FOR PAIN AND NAUSEA SEE EMAR. PT ABLE TO AMBULATE WITH MINIMAL TO NO ASSISTANCE AND CHANGES DRESSINGS FOR COLOSTOMY AND UROSTOMY HERSELF. PT WAS DROWSY AND SLEPT MOST OF THE SHIFT UPON BEING AROUSED FOR CARES PT WOULD REPORT PAIN AND NAUSEA. PT PLACED ON OXYGEN 2L FOLLOWING FINDING OF LOW SATURATIONS SEE NOTES. PT CURRENTLY SLEEPING. FAMILY SLEEPING AT BEDSIDE.
[2016-05-23] MEDS: NICOTINE PATCH REMOVAL TD SCH (09:00)
[2016-05-23] MEDS: FENTANYL PATCH REMOVAL TD SCH (09:00)
[2016-05-23] MEDS: GABAPENTIN 300 MG CAPSULE PO SCH ×2 (09:27→21:30)
[2016-05-23] MEDS: SERTRALINE 100 MG TABLET PO SCH ×2 (09:28→21:32)
[2016-05-23] MEDS: FLUTICASONE NASAL SPRAY 50 MCG EA NOSTRIL SCH (09:28)
[2016-05-23] MEDS: NICOTINE 14 MG PATCH TD SCH (09:29)
[2016-05-23] MEDS: FENTANYL 100MCG/HR PATCH TD SCH (09:30)
[2016-05-23] MEDS: CHOLESTYRAMINE LIGHT 4 G PACKET PO SCH ×2 (09:33→21:31)
[2016-05-23] MEDS: POTASSIUM CHLORIDE 10 MEQ TABLET PO SCH ×3 (09:34→17:35)
[2016-05-23] MEDS ORDERED: NORMAL SALINE 500 ML IV PRN (10:15)
[2016-05-23 10:18] LABS: BLOOD, URINE 3+ (NEGATIVE); COLOR,URINE YELLOW (YELLOW); LEUKOCYTE ESTERASE ,URINE 2+ (NEGATIVE); NITRITE,URINE NEGATIVE (NEGATIVE); UROBILINOGEN,URINE 0.2 EU/DL (NORMAL)
[2016-05-23 10:33] LABS: BACTERIA,URINE 1+ (NEGATIVE); RBC,URINE 30-50 /HPF (0-3); SQUAMOUS EPITHELIAL CELL,UR 0-5
[2016-05-23] MEDS: MAGNESIUM SULF 1gm / D5W 100ml 100 ML IV SCH ×2 (10:34→12:52)
[2016-05-23] MEDS: PROMETHAZINE 6.25 MG/5 ML PO PRN (12:32)
--- NOTE | 2016-05-23 17:31 | NUR ---
XARELTO PT REPORTS THAT SHE DOES TAKE XARELTO AT HOME.
[2016-05-23] MEDS: RIVAROXABAN 20 MG TABLET PO SCH (17:34)
--- NOTE | 2016-05-23 18:00 | NUR ---
NOTIFIED DR. HOUGH NOTIFIED OF PT'S O2 SAT OCCASIONALLY DROPPING WHEN SHE SLEEPS. WHEN ON RA, PT RANGES 93-97%. AFTER ADMINISTRATION OF PERCOCET, PT'S O2 SAT WILL DROP TO BELOW 90% ON RA, SEE CHARTED. PT PLACED ON 2L/NC, RECOVERS QUICKLY. TACHYPNEIC, HOWEVER DENIES SOA. NO ORDERS AT THIS TIME, CONTINUE TO MONITOR. Addendum: 05/23/16 at 1848 by JOSE ALEJANDRO DELAROSA RN Amended: Links added.
--- NOTE | 2016-05-23 18:40 | NUR ---
SHIFT SUMMARY PT ALERT AND ORIENTED X3. PT ON RA, DENIES SOA. REPORTS PAIN 8/10, PRN PAIN MEDS ADMINISTERED AND PT REPORTS DECREASED PAIN. PRN ZOFRAN AND PHENERGAN ADMINISTERED EARLIER THIS SHIFT, PT DENIES N/V AT THIS TIME. IVL RIGHT AC PATENT. UP AD JOVI, STEADY ON FEET. PT DENIES LIGHTHEADEDNESS, DENIES DIZZINESS. ADEQUATE URINE OUTPUT. DRESSINGS TO NEPHROSTOMY AND COLOSTOMY C/D/I. PT ABLE TO MAKE NEEDS KNOWN. CALL LIGHT WITHIN REACH.
--- NOTE | 2016-05-23 20:14 | PNPDOC ---
Subjective Date DATE: 05/23/16 TIME: 20:08 Subjective F/U: Hypokalemia, UTI, C diff diarrhea Doing fair. Still with ab pain and nausea. Reports decreased oral drive. Passing stool. Breathing well. Up some. No f/c. Nursing note O2 sats decrease when sleeping. Objective Vital Signs Vital signs Vital Signs Date Time Temp Pulse Resp B/P Pulse Ox O2 Delivery O2 Flow Rate FiO2 05/23/16 16:30 22 94 Room Air 05/23/16 15:41 2.00 05/23/16 15:38 97.3 79 102/64 Height (Feet): 5 Height (Inches): 3.00 Weight (Kilograms): 60.500 General General Appearance: Alert, Orientated x 3, Well Nourished, Well Developed, Cooperative, Looks Stated Age Eyes (Brief) Eyes: FOUND: EOMI, PERRL, NOT FOUND: scleral icterus ENMT (Brief) ENMT: FOUND: hearing intact, mucosa moist Neck (Brief) Neck: FOUND: midline, NOT FOUND: nuchal rigidity, spasm Respiratory (Brief) Respiratory: FOUND: clear all rodriguez, equal bilaterally, NOT FOUND: rales, wheezes Cardiovascular (Brief) Cardiac: FOUND: regular rate, regular rhythm Abdomen (Brief) Abdominal: FOUND: BS normo active x4, soft, NOT FOUND: distended Extremities (Brief) Extremity : Side: Bilateral Extremity: leg Extremity Finding: FOUND: edema (Trace ) Musculoskeletal (Brief) Musculoskeletal: FOUND: extremities move equally, NOT FOUND: deformity, spasm Neurologic (Brief) Neurological: FOUND: cranial 2-12 intact, motor (Intact ) Psychiatric (Brief) Psychiatric: FOUND: alert, attentive, normal affect, oriented Laboratory Laboratory Laboratory Tests 05/22/16 04:24 05/23/16 04:53 Laboratory Tests 05/23/16 04:53 Sepsis Diagnostic Criteria Sepsis Confirmed/Suspected Infection: Yes Assessment & Plan Problems: (1) Urinary tract infection Status: Acute Assessment & Plan: present on admission - UA 50-200 WBC with 3+ bacteria and + nitrite. Past cultures are reviewed. (2) C. difficile diarrhea Status: Acute Assessment & Plan: Started Flagyl 05/18 (3) Nausea & vomiting Status: Acute Qualifiers: Vomiting type: unspecified Vomiting Intractability: unspecified Qualified Codes: R11.2 - Nausea with vomiting, unspecified (4) Leukopenia Status: Acute Assessment & Plan: present on admission - 05/16/16 (WBC 4.2) (5) Hypokalemia Status: Acute Assessment & Plan: present on admission - 05/16/16 (K+ 2.4). (6) Chronic pain Status: Chronic (7) HTN (hypertension) Status: Chronic (8) Hypothyroidism Status: Chronic (9) Anxiety and depression Status: Chronic (10) GERD (gastroesophageal reflux disease) Status: Chronic (11) Narcotic dependence Status: Chronic (12) Tobacco dependence Status: Chronic (13) Hx of deep venous thrombosis Status: Resolved Assessment & Plan: 04/26/2014 (14) On anticoagulant therapy Status: Chronic Assessment & Plan: Xarelto (15) Seasonal allergies Status: Chronic (16) History of malignant neoplasm of colorectal region Status: Resolved Assessment & Plan: s/p colon resection. (17) Ureteral stent retained Status: Chronic Assessment & Plan: Follows with Dr. Edwards. (18) Hydronephrosis Status: Acute Plan/Intensity of Service Continue oral metronidazole for treatment of C diff. D/C Amoxil after tomorrow last dose - should provide sufficient treatment of UTI and wish to stop antibiotics as soon as possible due to C diff. Encourage oral intake. Discussed about Boost/Ensure in outpatient setting. Recommend yogurt to help with bowel regularity. Encourage ambulation. Recheck BMP in am due to medication use. Repeat CBC in am due to UTI and C diff. Hope for home in near future. Time spent with pt care 35 minutes. DVT Prophylaxis: Xarelto Code Status Full Code Hospital Course Summary Disclaimer The hospital course summary below is not to be considered part of the above Progress Note. Hospital Course Summary 05/16/16: [place].ADMIT. UTI with pyuria-acute (present on admission) * Admit under the care of Dr. Buck to observation status * Initiate Rocephin 1g IV daily for antimicrobial coverage of urinary pathogen - first dose given in ED. UA culture pending. Monitor sensitivities and adjust treatment as indicated. * Monitor urinary output as well as daily weights for signs of fluid overload. * NS 125cc/hr for hydration. Nausea/Vomiting-acute * Acute on chronic - continue Zofran for nausea/vomiting; clear liquid diet as tolerated. Leukopenia-acute (present on admission) * WBC 4.2 - recheck CBC in AM and monitor trends closely. Hypokalemia-acute (present on admission) * K+ 2.4 - KCL IV boluses x 4 initiated in ED. Recheck BMP at 1999 to monitor potassium and renal function. Monitor closely on telemetry. Chronic Pain * Continue home pain medications including [place] and Fentanyl patch with Gabapentin. Monitor closely for signs of constipation. Will hold stool softeners in light of report of diarrhea. CT abdomen/pelvis showed no acute changes. If diarrhea persists, consider GI panel. Narcotic Dependence-chronic * Patient on multiple home narcotics for chronic pain. May be difficult to control pain while hospitalized. Caution with additional narcotic pain medications. Tobacco Dependence * Smoking cessation encouraged. Hypertension-chronic * No listed blood pressure medication on APR. Monitor blood pressure closely and treat as indicated. Hypothyroid-chronic * Will recheck TSH now in light of concerns of hyperthyroidism. Continue home Synthroid. Anxiety and Depression-chronic * Continue home Klonopin, Zoloft and Trazodone. History of DVT with chronic anticoagulation-resolved * Continue anticoagulation with Xeralto. Encourage ambulation as able and SCDs for DVT prophylaxis. GERD-chronic * Continue home Prilosec for GI protection and GERD. Seasonal Allergic Rhinitis-chronic * Continue home Flonase History of malignant neoplasm of the colorectal region-resolved. * Colostomy care Upon discharge, patient's care will be returned to her PCP, Dr. Guzmán. 05/17/16- [place] *UTI- Hx of polyorganism infection Continue Ceftriaxone. +GNR, await final culture. Prior cultures reviewed. Hx of renal stent with concern for worsening hydronephrosis, stent occlusion. Dr. Bennett has seen patient in the past-- will consult to evaluate. She is fairly asymptomatic. *Recent diarrhea, GI upset- Improved. ADAT. Continue IVF. Slowly advance diet as tolerated. *Hypokalemia- Continue replacement via IVF and oral. Will decrease oral replacement to BID. Assess Inz Calcium given low Calcium (low albumin). May need to replace. Mag ok. *Cardiac ectopy- continue tele as we normalize electrolytes. *Hx of rectal cancer with ostomy- supportive care. *Hx of DVT- xarelto. (confirm dose). *Acute on chronic pain- will increase PRN percocet to Q 4 hours PRN pain. Leave remainder of meds alone. She will need at least another 24 hours of close monitoring and electrolyte replacement. Ongoing IV fluid, electrolyte replacement and IV antibiotics. Needs urology consult. Change to inpatient status due to ongoing care needs. 05/18/16 Unfortunately, patient was positive for C. difficile this morning. Will place patient in contact precautions and start oral Flagyl She was seen by Dr. Patel urologist this morning who recommends left stent change tomorrow. Patient did receive 1 dose of Xarelto last evening. Will have to speak further with Dr. Patel if this will influence procedure tomorrow. Xarelto held for now. Will continue with clear liquid diet for now as she continues to have intermittent nausea. Potassium this morning is elevated at 5.2, phosphorus is low at 1.9 Creatinine remains stable at 1.4 Discuss further plan of care with Dr. Buck 05/19 Patient got a new nephrostomy tube I believe on the left today, and our current plan is to continue to treat the Clostridium difficile with the oral vancomycin and I have change the Flagyl to IV Flagyl. We shall follow Dr. Ryan a suggestion that a more definitive treatment for her prolapse will be given by her surgeon, Dr. Lizarraga, probably practices a lot at [facility]. 05/20 Plan is to continue present care I think I will try to get a Dr. Bennett consult on the infection 05/21 I have asked the nurses to consult Dr. Bennett because of her having trouble getting her urine cleared up and the right kidney believe has a stone which may be retaining some impacting bacteria; the second bug culture not associated amoxicillin, and since she has been on Rocephin for 5 days I would I think we have the first were knocked out. Amoxicillin 500 3 times a day by mouth to try to take care of the second pathogen we've isolated and cultured from her urine. She remains on plenty of pain meds and did not ask me for any problems in the room. Hopefully wean discharge her in another day or 2. I know Dr. Villanueva wanted to watch that the prolapse reduced or 2 to see if it which drink any with the procedure she used. Consult place with Dr Donald sol as pt being followed by a different urologist. 05/22 About the same. Appetite decreased; not very hungry. Nausea at times. Passing liquid stool out ostomy. Feels tired and weak, not up much. Still with ab pain, but medications helping. Breathing well. Notes some urinary incontinence. Will d/c IVF as taking po. Change metronidazole to po for better treatment of C diff. Encourage ambulation. Start potassium 10mEg TID with meals as potassium decreasing. Restart Xarelto. Recheck CMP in am due to medication use. Repeat CBC in am due to UTI and C diff. 05/23 Doing fair. Still with ab pain and nausea. Reports decreased oral drive. Passing stool. Breathing well. Up some. No f/c. Nursing note O2 sats decrease when sleeping. Continue oral metronidazole for treatment of C diff. D/C Amoxil after tomorrow last dose - should provide sufficient treatment of UTI and wish to stop antibiotics as soon as possible due to C diff. Encourage oral intake. Discussed about Boost/Ensure in outpatient setting. Recommend yogurt to help with bowel regularity. Encourage ambulation. Recheck BMP in am due to medication use. Repeat CBC in am due to UTI and C diff. Hope for home in near future. LUIS MANUEL HOUGH MD May 23, 2016 20:14
[2016-05-23] MEDS: CLONAZEPAM 0.5 MG TABLET PO PRN (21:34)
[2016-05-23] MEDS: TRAZODONE 50 MG TABLET PO PRN (21:34)
--- NOTE | 2016-05-23 21:54 | NUR ---
SCD'S PT DID NOT HAVE SCD'S IN PLACE. NEW ONES COLLECTED AND PLACED ON PT, PT IS AGREEABLE TO WEARING THEM AND VERBALIZED UNDERSTANDING OF EDUCATION ON IMPORTANCE OF PROPER USE. Addendum: 05/23/16 at 2155 by JOI NUNEZ RN Amended: Links added.
[2016-05-24] VITALS (10 sets, daily range): BP systolic 79–103; BP diastolic 49–67; PULSE 69–75; RESP 16–30; TEMP 96.7–98.1; O2SAT 81–98
[2016-05-24] MEDS: METRONIDAZOLE 500 MG TABLET PO SCH ×3 (00:59→17:54)
[2016-05-24] MEDS: PROMETHAZINE 6.25 MG/5 ML PO PRN ×2 (00:59→09:57)
--- NOTE | 2016-05-24 01:19 | NUR ---
STATUS PT HAS HAD REQUESTS FOR SEVERAL PRN MEDICATIONS SEE EMAR. PT HAS RECEIVED PRN'S FOR ANXIETY, NAUSEA, INSOMNIA. PT IS VERY DROWSY AND FALLS ASLEEP DURING CONVERSATION. PT CONTINUES TO REPORT PAIN AND NAUSEA AND INABILITY TO SLEEP. PT ASSISTED TO REPOSITION IN BED. PT ENCOURAGED TO GIVE TIME FOR MEDICATIONS TO WORK AND IF PAIN CONTINUES USE CALL LIGHT TO REQUEST PAIN MEDICATIONS. WILL CONTINUE TO MONITOR PT AND TREAT PAIN AND OTHER COMPLAINTS NEEDED.
--- NOTE | 2016-05-24 04:23 | NUR ---
Pain Pt rating her abd pain 8/10. Percocet 7.5 mg given per order. Pt asked for 02 to be turned up to 3 L. States she is soa.
[2016-05-24 04:31] LABS: BASOPHILS % (AUTO) 0.1 % (0-2); EOSINOPHILS # (AUTO) 0.1 T/MM3 (0-0.5); EOSINOPHILS % (AUTO) 1.8 % (0-4); HCT - HEMATOCRIT 24.9 % (36-46); IMMATURE GRANULOCYTE # (AUTO) 0.01 T/MM3 (0.00-0.03); IMMATURE GRANULOCYTE % (AUTO) 0.1 % (0.0-0.5); LYMPHOCYTES # (AUTO) 0.7 T/MM3 (1-4.8); LYMPHOCYTES % (AUTO) 9.3 % (23-45); MEAN CORPUSCULAR HGB 29.4 UUG (26-34); MEAN CORPUSCULAR HGB CONC(MCHC 32.1 GM/DL (31-37); MEAN CORPUSCULAR VOLUME 91.5 UM3 (80-100); MEAN PLATELET VOLUME 11.6 UM3 (9.4-12.4); MONOCYTES # (AUTO) 0.3 T/MM3 (0-0.8); MONOCYTES % (AUTO) 4.2 % (0-9.0); NEUTROPHILS % (AUTO) 84.5 % (33-66); RED BLOOD COUNT 2.72 M/MM3 (4.00-5.20); WBC - WHITE BLOOD COUNT 7.1 T/MM3 (4.5-11.0)
[2016-05-24 04:44] LABS: ANION GAP 7 MEQ/L (5-15); BUN/CREATININE RATIO 3 RATIO (6-26); CALCIUM 7.1 MG/DL (8.4-10.2); CHLORIDE 114 MEQ/L (98-107); CO2 - CARBON DIOXIDE 22 MEQ/L (22-30); CREATININE 0.9 MG/DL (0.7-1.2); GLOMERULAR FILTRATION RATE 67; GLUCOSE 91 MG/DL (65-110); MAGNESIUM 1.9 MG/DL (1.6-2.3); POTASSIUM 3.9 MEQ/L (3.6-5); SODIUM 143 MEQ/L (134-144)
[2016-05-24] MEDS: LEVOTHYROXINE 75 MCG TABLET PO SCH (05:51)
[2016-05-24] MEDS: AMOXICILLIN 500 MG CAPSULE PO SCH ×3 (05:51→21:08)
[2016-05-24] MEDS: OMEPRAZOLE 20 MG CAPSULE PO SCH (05:51)
--- NOTE | 2016-05-24 06:32 | NUR ---
SHIFT SUMMARY PT A&O X3. PT HAS CONSTANT COMPLAINTS OF PAIN AND NAUSEA. PT IS PLEASANT AND COMPLIANT. PT ON 2L NC UNABLE TO WEAN PT OFF OXYGEN SP02 DROPS WITH DECREASED OXYGEN. PT EDUCATED ON DANGERS OF OVER USE OF NARCOTIC PAIN MEDICATIONS AND OTHER SEDATING TYPE DRUGS SUCH PHENERGAN AND KLONOPIN. PT VERBALIZES UNDERSTANDING OF EDUCATION. PT SON AT BED SIDE WHERE HE HAS BEEN SINCE PT ADMISSION. PT ON C-DIFF PRECAUTIONS. PT PAIN IS LOWER ABDOMINAL PAIN. PT HAS RIGHT NEPHROSTOMY AND LEFT COLOSTOMY THAT PT CARES FOR HERSELF.
--- NOTE | 2016-05-24 07:10 | NUR ---
BEGINNING OF SHIFT PT IS AWAKE AND A&OX3, PT RATES HER PAIN A 6/10 TO ABD AREA. PT REPORTS SHE ALREADY ORDERED BREAKFAST. PT REQUESTS FOR HER KLONOPIN TO BE GIVEN WITH HER MORNING MEDS. DENIES ANY OTHER NEEDS.
[2016-05-24] MEDS: POTASSIUM CHLORIDE 10 MEQ TABLET PO SCH ×3 (08:17→17:54)
[2016-05-24] MEDS: CHOLESTYRAMINE LIGHT 4 G PACKET PO SCH ×2 (08:17→21:08)
[2016-05-24] MEDS: GABAPENTIN 300 MG CAPSULE PO SCH ×2 (08:17→21:08)
[2016-05-24] MEDS: SERTRALINE 100 MG TABLET PO SCH ×2 (08:18→21:08)
[2016-05-24] MEDS: NICOTINE PATCH REMOVAL TD SCH (08:21)
[2016-05-24] MEDS: NICOTINE 14 MG PATCH TD SCH (08:21)
[2016-05-24] MEDS: CLONAZEPAM 0.5 MG TABLET PO PRN (08:22)
[2016-05-24] MEDS: FLUTICASONE NASAL SPRAY 50 MCG EA NOSTRIL SCH (08:24)
[2016-05-24] MEDS: RIVAROXABAN 20 MG TABLET PO SCH (17:54)
--- NOTE | 2016-05-24 18:20 | PNPDOC ---
Subjective Date DATE: 05/24/16 TIME: 18:12 Subjective F/U: Hypokalemia, UTI, C diff diarrhea Doing fair. Oral intake improving-taking more soups in. Not really eating much solids. No emesis. Chronic pain stable. When up to bathroom, felt more wheezy to lungs and SOA. Not with cough (except if takes deep breath). O2 sats will decrease when sleeping. BP running low today. No f/c. Objective Vital Signs Vital signs Vital Signs Date Time Temp Pulse Resp B/P Pulse Ox O2 Delivery O2 Flow Rate FiO2 05/24/16 16:30 90 Nasal Cannula 2.00 05/24/16 16:30 98.1 69 16 97/64 Height (Feet): 5 Height (Inches): 3.00 Weight (Kilograms): 24.000 General General Appearance: Alert, Orientated x 3, Well Nourished, Well Developed, Cooperative, Looks Stated Age Eyes (Brief) Eyes: FOUND: EOMI, PERRL, NOT FOUND: scleral icterus ENMT (Brief) ENMT: FOUND: hearing intact, mucosa moist Neck (Brief) Neck: FOUND: midline, NOT FOUND: nuchal rigidity, spasm Respiratory (Brief) Respiratory: FOUND: clear all rodriguez (Slight basilar blunting. No distress on RA), equal bilaterally, NOT FOUND: rales, wheezes Cardiovascular (Brief) Cardiac: FOUND: regular rate, regular rhythm Abdomen (Brief) Abdominal: FOUND: BS normo active x4, soft, NOT FOUND: distended Extremities (Brief) Extremity : Side: Bilateral Extremity Finding: NOT FOUND: edema Musculoskeletal (Brief) Musculoskeletal: FOUND: extremities move equally, NOT FOUND: deformity, spasm Integumentary (Brief) Integumentary: FOUND: dry, warm Neurologic (Brief) Neurological: FOUND: cranial 2-12 intact, motor (Intact ) Psychiatric (Brief) Psychiatric: FOUND: alert, attentive, normal affect, oriented Laboratory Laboratory Laboratory Tests 05/23/16 04:53 05/24/16 03:41 Laboratory Tests 05/23/16 04:53 05/24/16 03:41 Sepsis Diagnostic Criteria Sepsis Confirmed/Suspected Infection: Yes Assessment & Plan Problems: (1) Urinary tract infection Status: Acute Assessment & Plan: present on admission - UA 50-200 WBC with 3+ bacteria and + nitrite. Past cultures are reviewed. (2) C. difficile diarrhea Status: Acute Assessment & Plan: Started Flagyl 05/18 (3) Nausea & vomiting Status: Acute Qualifiers: Vomiting type: unspecified Vomiting Intractability: unspecified Qualified Codes: R11.2 - Nausea with vomiting, unspecified (4) Leukopenia Status: Acute Assessment & Plan: present on admission - 05/16/16 (WBC 4.2) (5) Hypokalemia Status: Acute Assessment & Plan: present on admission - 05/16/16 (K+ 2.4). (6) Chronic pain Status: Chronic (7) HTN (hypertension) Status: Chronic (8) Hypothyroidism Status: Chronic (9) Anxiety and depression Status: Chronic (10) GERD (gastroesophageal reflux disease) Status: Chronic (11) Narcotic dependence Status: Chronic (12) Tobacco dependence Status: Chronic (13) Hx of deep venous thrombosis Status: Resolved Assessment & Plan: 04/26/2014 (14) On anticoagulant therapy Status: Chronic Assessment & Plan: Xarelto (15) Seasonal allergies Status: Chronic (16) History of malignant neoplasm of colorectal region Status: Resolved Assessment & Plan: s/p colon resection. (17) Ureteral stent retained Status: Chronic Assessment & Plan: Follows with Dr. Edwards. (18) Hydronephrosis Status: Acute Plan/Intensity of Service Will check CXR due to wheezing and hypoxia. Continue oral metronidazole for treatment of C diff. Was planning to D/C amoxicillin, but pt urostomy tube felt out and replace-will continue amoxicillin for coverage. Encourage oral intake. Discussed about Boost/Ensure in outpatient setting. Encourage ambulation. Recheck BMP and Ma in am due to medication use and recent hypokalemia. Repeat CBC in am due to UTI and C diff. Was considering discharge today, but with decreased BP and hypoxia do feel continued monitoring and treatment prudent. Hope for home in near future. Case discussed with nursing. Time spent with pt care 25 minutes. DVT Prophylaxis: Xarelto Code Status Full Code Hospital Course Summary Disclaimer The hospital course summary below is not to be considered part of the above Progress Note. Hospital Course Summary 05/16/16: [place].ADMIT. UTI with pyuria-acute (present on admission) * Admit under the care of Dr. Buck to observation status * Initiate Rocephin 1g IV daily for antimicrobial coverage of urinary pathogen - first dose given in ED. UA culture pending. Monitor sensitivities and adjust treatment as indicated. * Monitor urinary output as well as daily weights for signs of fluid overload. * NS 125cc/hr for hydration. Nausea/Vomiting-acute * Acute on chronic - continue Zofran for nausea/vomiting; clear liquid diet as tolerated. Leukopenia-acute (present on admission) * WBC 4.2 - recheck CBC in AM and monitor trends closely. Hypokalemia-acute (present on admission) * K+ 2.4 - KCL IV boluses x 4 initiated in ED. Recheck BMP at 2000 to monitor potassium and renal function. Monitor closely on telemetry. Chronic Pain * Continue home pain medications including [place] and Fentanyl patch with Gabapentin. Monitor closely for signs of constipation. Will hold stool softeners in light of report of diarrhea. CT abdomen/pelvis showed no acute changes. If diarrhea persists, consider GI panel. Narcotic Dependence-chronic * Patient on multiple home narcotics for chronic pain. May be difficult to control pain while hospitalized. Caution with additional narcotic pain medications. Tobacco Dependence * Smoking cessation encouraged. Hypertension-chronic * No listed blood pressure medication on APR. Monitor blood pressure closely and treat as indicated. Hypothyroid-chronic * Will recheck TSH now in light of concerns of hyperthyroidism. Continue home Synthroid. Anxiety and Depression-chronic * Continue home Klonopin, Zoloft and Trazodone. History of DVT with chronic anticoagulation-resolved * Continue anticoagulation with Xeralto. Encourage ambulation as able and SCDs for DVT prophylaxis. GERD-chronic * Continue home Prilosec for GI protection and GERD. Seasonal Allergic Rhinitis-chronic * Continue home Flonase History of malignant neoplasm of the colorectal region-resolved. * Colostomy care Upon discharge, patient's care will be returned to her PCP, Dr. Guzmán. 05/17/16- [place] *UTI- Hx of polyorganism infection Continue Ceftriaxone. +GNR, await final culture. Prior cultures reviewed. Hx of renal stent with concern for worsening hydronephrosis, stent occlusion. Dr. Bennett has seen patient in the past-- will consult to evaluate. She is fairly asymptomatic. *Recent diarrhea, GI upset- Improved. ADAT. Continue IVF. Slowly advance diet as tolerated. *Hypokalemia- Continue replacement via IVF and oral. Will decrease oral replacement to BID. Assess Inz Calcium given low Calcium (low albumin). May need to replace. Mag ok. *Cardiac ectopy- continue tele as we normalize electrolytes. *Hx of rectal cancer with ostomy- supportive care. *Hx of DVT- xarelto. (confirm dose). *Acute on chronic pain- will increase PRN percocet to Q 4 hours PRN pain. Leave remainder of meds alone. She will need at least another 24 hours of close monitoring and electrolyte replacement. Ongoing IV fluid, electrolyte replacement and IV antibiotics. Needs urology consult. Change to inpatient status due to ongoing care needs. 05/18/16 Unfortunately, patient was positive for C. difficile this morning. Will place patient in contact precautions and start oral Flagyl She was seen by Dr. Patel urologist this morning who recommends left stent change tomorrow. Patient did receive 1 dose of Xarelto last evening. Will have to speak further with Dr. Patel if this will influence procedure tomorrow. Xarelto held for now. Will continue with clear liquid diet for now as she continues to have intermittent nausea. Potassium this morning is elevated at 5.2, phosphorus is low at 1.9 Creatinine remains stable at 1.4 Discuss further plan of care with Dr. Buck 05/19 Patient got a new nephrostomy tube I believe on the left today, and our current plan is to continue to treat the Clostridium difficile with the oral vancomycin and I have change the Flagyl to IV Flagyl. We shall follow Dr. Ryan a suggestion that a more definitive treatment for her prolapse will be given by her surgeon, Dr. Lizarraga, probably practices a lot at [facility]. 05/20 Plan is to continue present care I think I will try to get a Dr. Bennett consult on the infection 05/21 I have asked the nurses to consult Dr. Bennett because of her having trouble getting her urine cleared up and the right kidney believe has a stone which may be retaining some impacting bacteria; the second bug culture not associated amoxicillin, and since she has been on Rocephin for 5 days I would I think we have the first were knocked out. Amoxicillin 500 3 times a day by mouth to try to take care of the second pathogen we've isolated and cultured from her urine. She remains on plenty of pain meds and did not ask me for any problems in the room. Hopefully wean discharge her in another day or 2. [address] Villanueva wanted to watch that the prolapse reduced or 2 to see if it which drink any with the procedure she used. Consult place with Dr Donald sol as pt being followed by a different urologist. 05/22 About the same. Appetite decreased; not very hungry. Nausea at times. Passing liquid stool out ostomy. Feels tired and weak, not up much. Still with ab pain, but medications helping. Breathing well. Notes some urinary incontinence. Will d/c IVF as taking po. Change metronidazole to po for better treatment of C diff. Encourage ambulation. Start potassium 10mEg TID with meals as potassium decreasing. Restart Xarelto. Recheck CMP in am due to medication use. Repeat CBC in am due to UTI and C diff. 05/23 Doing fair. Still with ab pain and nausea. Reports decreased oral drive. Passing stool. Breathing well. Up some. No f/c. Nursing note O2 sats decrease when sleeping. Continue oral metronidazole for treatment of C diff. D/C Amoxil after tomorrow last dose - should provide sufficient treatment of UTI and wish to stop antibiotics as soon as possible due to C diff. Encourage oral intake. Discussed about Boost/Ensure in outpatient setting. Recommend yogurt to help with bowel regularity. Encourage ambulation. Recheck BMP in am due to medication use. Repeat CBC in am due to UTI and C diff. 05/24 Doing fair. Oral intake improving-taking more soups in. Not really eating much solids. No emesis. Chronic pain stable. When up to bathroom, felt more wheezy to lungs and SOA. Not with cough (except if takes deep breath). O2 sats will decrease when sleeping. BP running low today. No f/c. Will check CXR due to wheezing and hypoxia. Continue oral metronidazole for treatment of C diff. Was planning to D/C amoxicillin, but pt urostomy tube felt out and replace-will continue amoxicillin for coverage. Encourage oral intake. Discussed about Boost/Ensure in outpatient setting. Encourage ambulation. Recheck BMP and Ma in am due to medication use and recent hypokalemia. Repeat CBC in am due to UTI and C diff. Was considering discharge today, but with decreased BP and hypoxia do feel continued monitoring and treatment prudent. Hope for home in near future. LUIS MANUEL HOUGH MD May 24, 2016 18:16
--- NOTE | 2016-05-24 18:30 | NUR ---
SHIFT SUMMARY PT HAS BEEN ASKING FOR HER PAIN MEDICATION ON THE CLOCK, COMPLAINTS OF ABD PAIN. PT UROSTOMY BAG HAS BEEN DRAINING WELL AFTER BEING PLACED AGAIN. DR HOUGH PLACED ORDER TO WEAN PT OFF OF O2, PT IS CURRENTLY ON 1LNC SATTING 94%. PTS SON HAS BEEN AT PTS BEDSIDE ALL DAY. PT HAS BEEN DRINKING AND EATING 100% OF ALL HER MEALS.
[2016-05-25] VITALS (12 sets, daily range): BP systolic 92–114; BP diastolic 61–76; PULSE 67–98; RESP 16–26; TEMP 96.8–97.6; O2SAT 88–99
[2016-05-25] MEDS: METRONIDAZOLE 500 MG TABLET PO SCH ×3 (01:11→17:12)
[2016-05-25 05:11] LABS: BASOPHILS % (AUTO) 0.2 % (0-2); EOSINOPHILS # (AUTO) 0.1 T/MM3 (0-0.5); EOSINOPHILS % (AUTO) 1.5 % (0-4); HCT - HEMATOCRIT 24.8 % (36-46); HGB - HEMOGLOBIN 8.1 GM/DL (12-16); IMMATURE GRANULOCYTE # (AUTO) 0.01 T/MM3 (0.00-0.03); IMMATURE GRANULOCYTE % (AUTO) 0.2 % (0.0-0.5); LYMPHOCYTES # (AUTO) 0.8 T/MM3 (1-4.8); LYMPHOCYTES % (AUTO) 11.7 % (23-45); MEAN CORPUSCULAR HGB 29.9 UUG (26-34); MEAN CORPUSCULAR HGB CONC(MCHC 32.7 GM/DL (31-37); MEAN CORPUSCULAR VOLUME 91.5 UM3 (80-100); MEAN PLATELET VOLUME 11.8 UM3 (9.4-12.4); MONOCYTES # (AUTO) 0.3 T/MM3 (0-0.8); MONOCYTES % (AUTO) 3.8 % (0-9.0); NEUTROPHILS #(AUTO)-ABSOLUTE 5.4 T/MM3 (1.8-7.7); NEUTROPHILS % (AUTO) 82.6 % (33-66); RED BLOOD COUNT 2.71 M/MM3 (4.00-5.20); WBC - WHITE BLOOD COUNT 6.5 T/MM3 (4.5-11.0)
[2016-05-25 05:21] LABS: ANION GAP 4 MEQ/L (5-15); BUN/CREATININE RATIO 4 RATIO (6-26); CALCIUM 7.5 MG/DL (8.4-10.2); CHLORIDE 114 MEQ/L (98-107); CO2 - CARBON DIOXIDE 23 MEQ/L (22-30); CREATININE 0.9 MG/DL (0.7-1.2); GLOMERULAR FILTRATION RATE 67; GLUCOSE 106 MG/DL (65-110); MAGNESIUM 1.8 MG/DL (1.6-2.3); POTASSIUM 4.2 MEQ/L (3.6-5); SODIUM 141 MEQ/L (134-144)
[2016-05-25] MEDS: AMOXICILLIN 500 MG CAPSULE PO SCH ×2 (05:46→13:28)
[2016-05-25] MEDS: OMEPRAZOLE 20 MG CAPSULE PO SCH (06:35)
[2016-05-25] MEDS: LEVOTHYROXINE 75 MCG TABLET PO SCH (06:35)
--- NOTE | 2016-05-25 06:36 | NUR ---
SUMMARY PT WAS GIVEN PAIN MEDICATION THIS MORNING PER HER REQUEST FOR 8/10 ABD PAIN. PT ALERT AND ORIENTED. AMBULATES IN ROOM WITH NO ASSIST. GAIT STEADY. SON WITH HER ALL THE TIMES. COLOSTOMY AND ILEOSTOMY INTACT. PT EMPTIES THEM. PT ON 2L/NC WHEN SLEEPING. O2 DROPS TO AROUND 88% ON 1L. 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
--- NOTE | 2016-05-25 08:10 | DI ---
Indication: ITS.REASON: Hypoxia, wheezing PROCEDURE: CHEST 1 VIEW: Encounter: Initial Comparison: January 17, 2016 Findings: Increased prominence of the interstitial markings compared to the prior study with some hazy groundglass opacity present. No pneumothorax or definite effusion. Heart size and mediastinal contours are stable. Right-sided IJ port. Impression: Increased interstitial markings could relate to mild edema or atypical/viral pneumonia. .
[2016-05-25] MEDS: NICOTINE 14 MG PATCH TD SCH (08:35)
[2016-05-25] MEDS: CHOLESTYRAMINE LIGHT 4 G PACKET PO SCH ×3 (08:36→20:02)
[2016-05-25] MEDS: NICOTINE PATCH REMOVAL TD SCH (08:36)
[2016-05-25] MEDS: POTASSIUM CHLORIDE 10 MEQ TABLET PO SCH ×3 (08:37→17:12)
[2016-05-25] MEDS: SERTRALINE 100 MG TABLET PO SCH ×2 (08:37→22:11)
[2016-05-25] MEDS: GABAPENTIN 300 MG CAPSULE PO SCH ×2 (08:37→22:11)
[2016-05-25] MEDS: FLUTICASONE NASAL SPRAY 50 MCG EA NOSTRIL SCH (08:38)
[2016-05-25] MEDS: PROMETHAZINE 6.25 MG/5 ML PO PRN ×3 (08:48→22:12)
--- NOTE | 2016-05-25 09:43 | NUR ---
O2 PT TOOK O2 OFF UPON CHECK O2 RANGED FROM 83-90% ON RA, MOSTLY IN THE 80'S THOUGH, THEREFORE, 1L/NC PLACED BACK ON.
--- NOTE | 2016-05-25 12:57 | NUR ---
CM SPOKE WITH PT, AND SON WAS PRESENT WITH PT'S PERMISSION. DISCUSSED DC SOON. REVIEWED IM LETTER WITH PT, AND SHE SIGNED IT. SHE DID NOT HAVE ANY QUESTIONS/CONCERNS ABOUT IT. PT AND SON STATED THEY ACTUALLY LIVE IN [place], [place] ([place], [place] THAT IS WHERE [place] BE RELE[place] WHEN [place] [facility] [place] SAID THEIR ROOMMATE WILL PROVIDE THE TRANSPORTATION WHEN PT IS RELEASED. 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 REVIEWED ROTP; PT AND SON AGREEABLE. REVIEWED NEED FOR HOME HEALTH; THEY BOTH DECLINED THIS. PT SAID SHE IS BACK TO BASELINE, BASICALLY. SON SAID HE GOES ON WALKS WITH THE PT AT HOME AND THEY WILL CONTINUE TO DO SO AFTER DC. REVIEWED POSSIBLE NEED FOR HOME OXYGEN; THIS WILL BE RE-EVALUATED TOMORROW. PT AND SON HAD NO QUESTIONS/CONCERNS FOR THIS WORKER. Addendum: 05/25/16 at 1300 by HAMILTON KLEIN Amended: Links added. Addendum: 05/25/16 at 1348 by HAMILTON KLEIN THIS WORKER ALSO REVIEWED PT'S COLOSTOMY/ILIEOSTOMY SUPPLIES: PT AND SON STATED PT HAS A FEW LEFT, AND THEY WILL NEED TO CALL TO ORDER MORE. PT SAID SHE GETS HER SUPPLIES DELIVERED THROUGH [employer]. SON SAID HE WILL CALL TODAY TO UPDATE [employer] OF THEIR NEW ADDRESS, AND FOR MORE TO BE MAILED.
[2016-05-25] MEDS: RIVAROXABAN 20 MG TABLET PO SCH (17:12)
--- NOTE | 2016-05-25 18:50 | NUR ---
SUMMARY SHIFT PT IS ALERTED AND ORIENTED X3. STOMA AND UROSTOMY CARE PROVIDED. ATTEMPT TO WEAN PT OFF OF O2 BUT PT'S O2 SAT DROPS WITHIN 30 MIN DOWN TO THE 80'S AT REST. PRN'S GIVEN FOR PAIN AND NAUSEA NEEDED. PT ENCOURAGED TO USE THE IS.
--- NOTE | 2016-05-25 19:30 | PNPDOC ---
Subjective Date DATE: 05/25/16 TIME: 19:24 Subjective F/U: Hypokalemia, UTI, C diff diarrhea Doing better today. Oral intake increasing-trying to be cautious as she eats so as not to cause nausea/pain. Walking more. Breathing feeling okay-not SOA or congested. O2 sats decrease when resting - normal with ambulation. Suspect hypoventilation from pain medicines. Encouraged deep breathing exercises. Objective Vital Signs Vital signs Vital Signs Date Time Temp Pulse Resp B/P Pulse Ox O2 Delivery O2 Flow Rate FiO2 05/25/16 15:57 Room Air 05/25/16 15:56 97.2 74 16 102/67 97 1.00 Height (Feet): 5 Height (Inches): 3.00 Weight (Kilograms): 57.700 General General Appearance: Alert, Orientated x 3, Overweight, Well Developed, Cooperative, Looks Stated Age Eyes (Brief) Eyes: FOUND: EOMI, PERRL, NOT FOUND: scleral icterus ENMT (Brief) ENMT: FOUND: hearing intact, mucosa moist (No thrush ) Neck (Brief) Neck: FOUND: midline, NOT FOUND: nuchal rigidity, spasm Respiratory (Brief) Respiratory: FOUND: clear all rodriguez, equal bilaterally, NOT FOUND: rales, wheezes Cardiovascular (Brief) Cardiac: FOUND: regular rate, regular rhythm Abdomen (Brief) Abdominal: FOUND: BS normo active x4, soft, NOT FOUND: distended, tender Extremities (Brief) Extremity : Side: Bilateral Extremity: leg Extremity Finding: FOUND: other (SCD in place ), NOT FOUND: edema Musculoskeletal (Brief) Musculoskeletal: FOUND: extremities move equally, NOT FOUND: deformity, loss of motion, spasm, tenderness Integumentary (Brief) Integumentary: FOUND: dry, warm Neurologic (Brief) Neurological: FOUND: cranial 2-12 intact, motor (Intact ) Psychiatric (Brief) Psychiatric: FOUND: alert, attentive, normal affect, oriented Laboratory Laboratory Laboratory Tests 05/24/16 03:41 05/25/16 04:30 Laboratory Tests 05/24/16 03:41 05/25/16 04:30 Sepsis Diagnostic Criteria Sepsis Confirmed/Suspected Infection: Yes Assessment & Plan Problems: (1) Urinary tract infection Status: Acute Assessment & Plan: present on admission - UA 50-200 WBC with 3+ bacteria and + nitrite. (2) C. difficile diarrhea Status: Acute Assessment & Plan: Started Flagyl 05/18 (3) Nausea & vomiting Status: Acute Qualifiers: Vomiting type: unspecified Vomiting Intractability: unspecified Qualified Codes: R11.2 - Nausea with vomiting, unspecified (4) Leukopenia Status: Acute Assessment & Plan: present on admission - 05/16/16 (WBC 4.2) (5) Hypokalemia Status: Acute Assessment & Plan: present on admission - 05/16/16 (K+ 2.4). (6) Chronic pain Status: Chronic (7) HTN (hypertension) Status: Chronic (8) Hypothyroidism Status: Chronic (9) Anxiety and depression Status: Chronic (10) GERD (gastroesophageal reflux disease) Status: Chronic (11) Narcotic dependence Status: Chronic (12) Tobacco dependence Status: Chronic (13) Hx of deep venous thrombosis Status: Resolved Assessment & Plan: 04/26/2014 (14) On anticoagulant therapy Status: Chronic Assessment & Plan: Xarelto (15) Seasonal allergies Status: Chronic (16) History of malignant neoplasm of colorectal region Status: Resolved Assessment & Plan: s/p colon resection. (17) Ureteral stent retained Status: Chronic Assessment & Plan: Follows with Dr. Edwards. (18) Hydronephrosis Status: Acute Plan/Intensity of Service Continue oral metronidazole for treatment of C diff. D/C amoxicillin after today's last dose. Encourage oral intake. Discussed about Boost/Ensure in outpatient setting. Encourage IS and deep breathing for pulmonary toilet. Encourage ambulation. Recheck BMP in am due to medication use and recent hypokalemia. Repeat CBC in am due to UTI and C diff. Anticipate d/c to home tomorrow. Case discussed with nursing and CM. Time spent with pt care 25 minutes. DVT Prophylaxis: SCD'S Code Status Full Code Hospital Course Summary Disclaimer The hospital course summary below is not to be considered part of the above Progress Note. Hospital Course Summary 05/16/16: [place].ADMIT. UTI with pyuria-acute (present on admission) * Admit under the care of Dr. Buck to observation status * Initiate Rocephin 1g IV daily for antimicrobial coverage of urinary pathogen - first dose given in ED. UA culture pending. Monitor sensitivities and adjust treatment as indicated. * Monitor urinary output as well as daily weights for signs of fluid overload. * NS 125cc/hr for hydration. Nausea/Vomiting-acute * Acute on chronic - continue Zofran for nausea/vomiting; clear liquid diet as tolerated. Leukopenia-acute (present on admission) * WBC 4.2 - recheck CBC in AM and monitor trends closely. Hypokalemia-acute (present on admission) * K+ 2.4 - KCL IV boluses x 4 initiated in ED. Recheck BMP at 2000 to monitor potassium and renal function. Monitor closely on telemetry. Chronic Pain * Continue home pain medications including Leander and Fentanyl patch with Gabapentin. Monitor closely for signs of constipation. Will hold stool softeners in light of report of diarrhea. CT abdomen/pelvis showed no acute changes. If diarrhea persists, consider GI panel. Narcotic Dependence-chronic * Patient on multiple home narcotics for chronic pain. May be difficult to control pain while hospitalized. Caution with additional narcotic pain medications. Tobacco Dependence * Smoking cessation encouraged. Hypertension-chronic * No listed blood pressure medication on APR. Monitor blood pressure closely and treat as indicated. Hypothyroid-chronic * Will recheck TSH now in light of concerns of hyperthyroidism. Continue home Synthroid. Anxiety and Depression-chronic * Continue home Klonopin, Zoloft and Trazodone. History of DVT with chronic anticoagulation-resolved * Continue anticoagulation with Xeralto. Encourage ambulation as able and SCDs for DVT prophylaxis. GERD-chronic * Continue home Prilosec for GI protection and GERD. Seasonal Allergic Rhinitis-chronic * Continue home Flonase History of malignant neoplasm of the colorectal region-resolved. * Colostomy care Upon discharge, patient's care will be returned to her PCP, Dr. Guzmán. 05/17/16- [place] *UTI- Hx of polyorganism infection Continue Ceftriaxone. +GNR, await final culture. Prior cultures reviewed. Hx of renal stent with concern for worsening hydronephrosis, stent occlusion. Dr. Bennett has seen patient in the past-- will consult to evaluate. She is fairly asymptomatic. *Recent diarrhea, GI upset- Improved. ADAT. Continue IVF. Slowly advance diet as tolerated. *Hypokalemia- Continue replacement via IVF and oral. Will decrease oral replacement to BID. Assess Inz Calcium given low Calcium (low albumin). May need to replace. Mag ok. *Cardiac ectopy- continue tele as we normalize electrolytes. *Hx of rectal cancer with ostomy- supportive care. *Hx of DVT- xarelto. (confirm dose). *Acute on chronic pain- will increase PRN percocet to Q 4 hours PRN pain. Leave remainder of meds alone. She will need at least another 24 hours of close monitoring and electrolyte replacement. Ongoing IV fluid, electrolyte replacement and IV antibiotics. Needs urology consult. Change to inpatient status due to ongoing care needs. 05/18/16 Unfortunately, patient was positive for C. difficile this morning. Will place patient in contact precautions and start oral Flagyl She was seen by Dr. Patel urologist this morning who recommends left stent change tomorrow. Patient did receive 1 dose of Xarelto last evening. Will have to speak further with Dr. Patel if this will influence procedure tomorrow. Xarelto held for now. Will continue with clear liquid diet for now as she continues to have intermittent nausea. Potassium this morning is elevated at 5.2, phosphorus is low at 1.9 Creatinine remains stable at 1.4 Discuss further plan of care with Dr. Buck 05/19 Patient got a new nephrostomy tube I believe on the left today, and our current plan is to continue to treat the Clostridium difficile with the oral vancomycin and I have change the Flagyl to IV Flagyl. We shall follow Dr. Ryan a suggestion that a more definitive treatment for her prolapse will be given by her surgeon, Dr. Lizarraga, probably practices a lot at [facility]. 05/20 Plan is to continue present care I think I will try to get a Dr. Bennett consult on the infection 05/21 I have asked the nurses to consult Dr. Bennett because of her having trouble getting her urine cleared up and the right kidney believe has a stone which may be retaining some impacting bacteria; the second bug culture not associated amoxicillin, and since she has been on Rocephin for 5 days I would I think we have the first were knocked out. Amoxicillin 500 3 times a day by mouth to try to take care of the second pathogen we've isolated and cultured from her urine. She remains on plenty of pain meds and did not ask me for any problems in the room. Hopefully wean discharge her in another day or 2. I know Dr. Villanueva wanted to watch that the prolapse reduced or 2 to see if it which drink any with the procedure she used. Consult place with Dr Donald sol as pt being followed by a different urologist. 05/22 About the same. Appetite decreased; not very hungry. Nausea at times. Passing liquid stool out ostomy. Feels tired and weak, not up much. Still with ab pain, but medications helping. Breathing well. Notes some urinary incontinence. Will d/c IVF as taking po. Change metronidazole to po for better treatment of C diff. Encourage ambulation. Start potassium 10mEg TID with meals as potassium decreasing. Restart Xarelto. Recheck CMP in am due to medication use. Repeat CBC in am due to UTI and C diff. 05/23 Doing fair. Still with ab pain and nausea. Reports decreased oral drive. Passing stool. Breathing well. Up some. No f/c. Nursing note O2 sats decrease when sleeping. Continue oral metronidazole for treatment of C diff. D/C Amoxil after tomorrow last dose - should provide sufficient treatment of UTI and wish to stop antibiotics as soon as possible due to C diff. Encourage oral intake. Discussed about Boost/Ensure in outpatient setting. Recommend yogurt to help with bowel regularity. Encourage ambulation. Recheck BMP in am due to medication use. Repeat CBC in am due to UTI and C diff. 05/24 Doing fair. Oral intake improving-taking more soups in. Not really eating much solids. No emesis. Chronic pain stable. When up to bathroom, felt more wheezy to lungs and SOA. Not with cough (except if takes deep breath). O2 sats will decrease when sleeping. BP running low today. No f/c. Will check CXR due to wheezing and hypoxia. Continue oral metronidazole for treatment of C diff. Was planning to D/C amoxicillin, but pt urostomy tube felt out and replace-will continue amoxicillin for coverage. Encourage oral intake. Discussed about Boost/Ensure in outpatient setting. Encourage ambulation. Recheck BMP and Ma in am due to medication use and recent hypokalemia. Repeat CBC in am due to UTI and C diff. Was considering discharge today, but with decreased BP and hypoxia do feel continued monitoring and treatment prudent. Hope for home in near future. 05/25 Doing better today. Oral intake increasing-trying to be cautious as she eats so as not to cause nausea/pain. Walking more. Breathing feeling okay-not SOA or congested. O2 sats decrease when resting - normal with ambulation. Suspect hypoventilation from pain medicines. Encouraged deep breathing exercises. Continue oral metronidazole for treatment of C diff. D/C amoxicillin after today's last dose. Encourage oral intake. Discussed about Boost/Ensure in outpatient setting. Encourage IS and deep breathing for pulmonary toilet. Encourage ambulation. Recheck BMP in am due to medication use and recent hypokalemia. Repeat CBC in am due to UTI and C diff. Anticipate d/c to home tomorrow. LUIS MANUEL HOUGH MD May 25, 2016 19:27
[2016-05-25] MEDS: ONDANSETRON 4mg/2ml INJECTION IV PRN (19:59)
[2016-05-25] MEDS ORDERED: AMOXICILLIN 500 MG CAPSULE PO ONE (21:00)
[2016-05-26] MEDS: METRONIDAZOLE 500 MG TABLET PO SCH ×2 (01:58→08:31)
--- NOTE | 2016-05-26 04:05 | NUR ---
SUMMARY PT IS ALERT AND ORIENTED. PT IS ABLE TO AMBULATE IN HER ROOM INDEPENDENTLY. PT REPORTED PAIN IN HER ABDOMEN RATED 8/10, PRN PERCOCET GIVEN ORDERED. PT HAS BEEN ON ROOM AIR, O2 SAT IS 92%. IV IN THE RIGHT AC PATENT, DRESSING CHANGED AFTER PT REPORTED PAIN WITH MOVEMENT OF ARM. COLOSTOMY SIGHT DIEGO RED WITH GOOD OUTPUT. UROSTOMY SIGHT IS PALE IN COLOR, URINE IS LIGHT AND SLIGHTLY RED TINGED. REMAINS ON CONTACT PRECAUTIONS.
[2016-05-26 05:11] LABS: BASOPHILS % (AUTO) 0.2 % (0-2); EOSINOPHILS # (AUTO) 0.2 T/MM3 (0-0.5); EOSINOPHILS % (AUTO) 2.7 % (0-4); HCT - HEMATOCRIT 24.4 % (36-46); HGB - HEMOGLOBIN 7.7 GM/DL (12-16); IMMATURE GRANULOCYTE # (AUTO) 0.02 T/MM3 (0.00-0.03); IMMATURE GRANULOCYTE % (AUTO) 0.4 % (0.0-0.5); LYMPHOCYTES # (AUTO) 0.7 T/MM3 (1-4.8); LYMPHOCYTES % (AUTO) 13.1 % (23-45); MEAN CORPUSCULAR HGB 29.1 UUG (26-34); MEAN CORPUSCULAR HGB CONC(MCHC 31.6 GM/DL (31-37); MEAN CORPUSCULAR VOLUME 92.1 UM3 (80-100); MEAN PLATELET VOLUME 12.2 UM3 (9.4-12.4); MONOCYTES # (AUTO) 0.2 T/MM3 (0-0.8); MONOCYTES % (AUTO) 3.8 % (0-9.0); NEUTROPHILS #(AUTO)-ABSOLUTE 4.4 T/MM3 (1.8-7.7); NEUTROPHILS % (AUTO) 79.8 % (33-66); RED BLOOD COUNT 2.65 M/MM3 (4.00-5.20); WBC - WHITE BLOOD COUNT 5.6 T/MM3 (4.5-11.0)
[2016-05-26 05:25] LABS: ANION GAP 6 MEQ/L (5-15); BUN/CREATININE RATIO 4 RATIO (6-26); CALCIUM 7.5 MG/DL (8.4-10.2); CHLORIDE 112 MEQ/L (98-107); CO2 - CARBON DIOXIDE 23 MEQ/L (22-30); CREATININE 0.9 MG/DL (0.7-1.2); GLOMERULAR FILTRATION RATE 67; GLUCOSE 128 MG/DL (65-110); POTASSIUM 4.4 MEQ/L (3.6-5); SODIUM 141 MEQ/L (134-144)
[2016-05-26] MEDS: OMEPRAZOLE 20 MG CAPSULE PO SCH (07:10)
[2016-05-26] MEDS: PROMETHAZINE 6.25 MG/5 ML PO PRN (07:10)
[2016-05-26] MEDS: LEVOTHYROXINE 75 MCG TABLET PO SCH (07:10)
[2016-05-26 07:13] VITALS: BP 116/69; PULSE 74; RESP 26; TEMP 96.9; O2SAT 92
[2016-05-26 07:28] VITALS: BP_SYST 108; BP_SYST 121; BP_DIAS 63; BP_DIAS 64; PULSE 34; PULSE 54; RESP 18; RESP 30; TEMP 97.6; O2SAT 100
--- NOTE | 2016-05-26 07:30 | NUR ---
chest pressure pt reports chest pressure at report in am. pt put in Trendelenburg for blood flow. heart rate was 34bmp sitting up, bpm went up to 55 with Trendelenburg. Addendum: 05/26/16 at 0741 by ADAM RINCON RN !!!!!!!!!!!!!!!!!!!!!!!!!!!!!!!!WRONG PT!!!!!!!!!!!!!!!!!!!!!!!!!!!!!!!!!!!!!!!!!!!
[2016-05-26 07:54] VITALS: PULSE 74; RESP 20
[2016-05-26] MEDS: POTASSIUM CHLORIDE 10 MEQ TABLET PO SCH ×2 (08:32→12:12)
[2016-05-26] MEDS: GABAPENTIN 300 MG CAPSULE PO SCH (08:32)
[2016-05-26] MEDS: FLUTICASONE NASAL SPRAY 50 MCG EA NOSTRIL SCH (08:33)
[2016-05-26] MEDS: FENTANYL PATCH REMOVAL TD SCH (08:35)
[2016-05-26] MEDS: FENTANYL 100MCG/HR PATCH TD SCH (08:35)
[2016-05-26] MEDS: NICOTINE PATCH REMOVAL TD SCH (08:35)
[2016-05-26] MEDS: NICOTINE 14 MG PATCH TD SCH (08:35)
[2016-05-26] MEDS: SERTRALINE 100 MG TABLET PO SCH (08:45)
[2016-05-26] MEDS: CLONAZEPAM 0.5 MG TABLET PO PRN (10:26)
--- NOTE | 2016-05-26 11:04 | NUR ---
FARHAN SPOKE WITH PT AND SON. THEY SAID THEY STILL HOPE THAT PT CAN BE RELEASED TODAY. THEY SAID THEIR ROOMMATE WILL BE ABLE TO COME THIS AFTERNOON TO PICK THEM UP. NOW PT STATED THAT SHE DOES NOT HAVE ANY MORE OSTOMY SUPPLIES LEFT. SHE SAID SHE HAS A PACKET AND WILL CHANGE IT TODAY, AND IT WOULD LAST HER 2 DAYS. ARRANGED FOR PT TO BE PROVIDED WITH ANOTHER PACKET PRIOR TO LEAVING THE HOSPITAL. PT GAVE PERMISSION FOR THIS WORKER TO CONTACT HER OSTOMY SUPPLY COMPANY (WHICH IS ACTUALLY [employer], NOT [employer]), TO UPDATE HER ADDRESS AND GET MORE SUPPLIES ORDERED. CALLED [employer], SPOKE WITH ZEHRA. PROVIDED PT'S UPDATED ADDRESS IN [facility] AND ORDERED MORE SUPPLIES. HE SAID HE WILL HAVE 6 BOXES OF WAFERS, 6 BOXES OF POUCHES, AND 1 DEODORANT DELIVERED TO HER [facility] HOME (THIS WOULD LAST 90 DAYS). HE SAID IT WILL BE DELIVERED VIA [employer], AND WOULD ARRIVE BY WEDNESDAY.
--- NOTE | 2016-05-26 11:47 | NUR ---
CM SPOKE WITH DR. HOUGH; DC IS ANTICIPATED TODAY WITH NO HOME OXYGEN NEEDED. UPDATED PT AND SON, THEY WERE STILL AGREEABLE. REVIEWED OSTOMY ORDER AND PROVIDED UPDATE IN WRITING. THEY HAD NO QUESTIONS/NEEDS FOR THIS WORKER.
--- NOTE | 2016-05-26 12:10 | PNPDOC ---
Subjective Date DATE: 05/26/16 TIME: 12:03 Subjective F/U: Hypokalemia, UTI, C diff diarrhea Doing well today. Oral intake stable-no emesis. Pain controlled. Breathing well- not SOA or congested. Using IR routinely. No pain with breathing. Strength increasing. No f/c. Not having chest pain. Objective Vital Signs Vital signs Vital Signs Date Time Temp Pulse Resp B/P Pulse Ox O2 Delivery O2 Flow Rate FiO2 05/26/16 07:54 74 20 05/26/16 07:13 96.9 116/69 92 Room Air 05/25/16 23:29 2.00 Height (Feet): 5 Height (Inches): 3.00 Weight (Kilograms): 57.800 General General Appearance: Alert, Orientated x 3, Well Nourished, Well Developed, Cooperative, No Acute Distress, Looks Stated Age Eyes (Brief) Eyes: FOUND: EOMI, PERRL, NOT FOUND: scleral icterus ENMT (Brief) ENMT: FOUND: hearing intact, mucosa moist (No thrush ) Neck (Brief) Neck: FOUND: midline, NOT FOUND: nuchal rigidity, spasm Respiratory (Brief) Respiratory: FOUND: clear all rodriguez, equal bilaterally, other (No distress on RA ), NOT FOUND: rales, wheezes Cardiovascular (Brief) Cardiac: FOUND: regular rate, regular rhythm, NOT FOUND: pedal edema Abdomen (Brief) Abdominal: FOUND: BS normo active x4, soft, NOT FOUND: distended, tender Extremities (Brief) Extremity : Side: Bilateral Extremity: leg Extremity Finding: NOT FOUND: edema Musculoskeletal (Brief) Musculoskeletal: FOUND: extremities move equally, NOT FOUND: deformity, loss of motion, spasm, tenderness Integumentary (Brief) Integumentary: FOUND: dry, warm Neurologic (Brief) Neurological: FOUND: cranial 2-12 intact, motor (Intact ) Psychiatric (Brief) Psychiatric: FOUND: alert, attentive, normal affect, oriented Laboratory Laboratory Laboratory Tests 05/25/16 04:30 05/26/16 04:33 Laboratory Tests 05/25/16 04:30 05/26/16 04:33 Sepsis Diagnostic Criteria Sepsis Confirmed/Suspected Infection: Yes Assessment & Plan Problems: (1) Urinary tract infection Status: Acute Assessment & Plan: present on admission - UA 50-200 WBC with 3+ bacteria and + nitrite. (2) C. difficile diarrhea Status: Acute Assessment & Plan: Started Flagyl 05/18 (3) Nausea & vomiting Status: Acute Qualifiers: Vomiting type: unspecified Vomiting Intractability: unspecified Qualified Codes: R11.2 - Nausea with vomiting, unspecified (4) Leukopenia Status: Acute Assessment & Plan: present on admission - 05/16/16 (WBC 4.2) (5) Hypokalemia Status: Acute Assessment & Plan: present on admission - 05/16/16 (K+ 2.4). (6) Chronic pain Status: Chronic (7) HTN (hypertension) Status: Chronic (8) Hypothyroidism Status: Chronic (9) Anxiety and depression Status: Chronic (10) GERD (gastroesophageal reflux disease) Status: Chronic (11) Narcotic dependence Status: Chronic (12) Tobacco dependence Status: Chronic (13) Hx of deep venous thrombosis Status: Resolved Assessment & Plan: 04/26/2014 (14) On anticoagulant therapy Status: Chronic Assessment & Plan: Xarelto (15) Seasonal allergies Status: Chronic (16) History of malignant neoplasm of colorectal region Status: Resolved Assessment & Plan: s/p colon resection. (17) Ureteral stent retained Status: Chronic Assessment & Plan: Follows with Dr. Edwards. (18) Hydronephrosis Status: Acute Plan/Intensity of Service Will d/c to home - medically stable. Condition good. Continue oral metronidazole for another 10 days. Continue with Questran to help slow stools - decrease if stools too slow. Course on treatment for UTI completed. Encourage continued use of IS and deep breathing. Increase activities and walking. F/U with [facility] in 1 week - pt in process of moving and will establish new local primary provider. See orders for details. Case discussed with CM. Time spent with discharge greater than 35 minutes. DVT Prophylaxis: SCD'S, Xarelto Code Status Full Code Hospital Course Summary Disclaimer The hospital course summary below is not to be considered part of the above Progress Note. Hospital Course Summary 05/16/16: [facility].ADMIT. UTI with pyuria-acute (present on admission) * Admit under the care of Dr. Buck to observation status * Initiate Rocephin 1g IV daily for antimicrobial coverage of urinary pathogen - first dose given in ED. UA culture pending. Monitor sensitivities and adjust treatment as indicated. * Monitor urinary output as well as daily weights for signs of fluid overload. * NS 125cc/hr for hydration. Nausea/Vomiting-acute * Acute on chronic - continue Zofran for nausea/vomiting; clear liquid diet as tolerated. Leukopenia-acute (present on admission) * WBC 4.2 - recheck CBC in AM and monitor trends closely. Hypokalemia-acute (present on admission) * K+ 2.4 - KCL IV boluses x 4 initiated in ED. Recheck BMP at 2000 to monitor potassium and renal function. Monitor closely on telemetry. Chronic Pain * Continue home pain medications including [place] and Fentanyl patch with Gabapentin. Monitor closely for signs of constipation. Will hold stool softeners in light of report of diarrhea. CT abdomen/pelvis showed no acute changes. If diarrhea persists, consider GI panel. Narcotic Dependence-chronic * Patient on multiple home narcotics for chronic pain. May be difficult to control pain while hospitalized. Caution with additional narcotic pain medications. Tobacco Dependence * Smoking cessation encouraged. Hypertension-chronic * No listed blood pressure medication on APR. Monitor blood pressure closely and treat as indicated. Hypothyroid-chronic * Will recheck TSH now in light of concerns of hyperthyroidism. Continue home Synthroid. Anxiety and Depression-chronic * Continue home Klonopin, Zoloft and Trazodone. History of DVT with chronic anticoagulation-resolved * Continue anticoagulation with Xeralto. Encourage ambulation as able and SCDs for DVT prophylaxis. GERD-chronic * Continue home Prilosec for GI protection and GERD. Seasonal Allergic Rhinitis-chronic * Continue home Flonase History of malignant neoplasm of the colorectal region-resolved. * Colostomy care Upon discharge, patient's care will be returned to her PCP, Dr. Guzmán. 05/17/16- [place] *UTI- Hx of polyorganism infection Continue Ceftriaxone. +GNR, await final culture. Prior cultures reviewed. Hx of renal stent with concern for worsening hydronephrosis, stent occlusion. Dr. Bennett has seen patient in the past-- will consult to evaluate. She is fairly asymptomatic. *Recent diarrhea, GI upset- Improved. ADAT. Continue IVF. Slowly advance diet as tolerated. *Hypokalemia- Continue replacement via IVF and oral. Will decrease oral replacement to BID. Assess Inz Calcium given low Calcium (low albumin). May need to replace. Mag ok. *Cardiac ectopy- continue tele as we normalize electrolytes. *Hx of rectal cancer with ostomy- supportive care. *Hx of DVT- xarelto. (confirm dose). *Acute on chronic pain- will increase PRN percocet to Q 4 hours PRN pain. Leave remainder of meds alone. She will need at least another 24 hours of close monitoring and electrolyte replacement. Ongoing IV fluid, electrolyte replacement and IV antibiotics. Needs urology consult. Change to inpatient status due to ongoing care needs. 05/18/16 Unfortunately, patient was positive for C. difficile this morning. Will place patient in contact precautions and start oral Flagyl She was seen by Dr. Patel urologist this morning who recommends left stent change tomorrow. Patient did receive 1 dose of Xarelto last evening. Will have to speak further with Dr. Paetl if this will influence procedure tomorrow. Xarelto held for now. Will continue with clear liquid diet for now as she continues to have intermittent nausea. Potassium this morning is elevated at 5.2, phosphorus is low at 1.9 Creatinine remains stable at 1.4 Discuss further plan of care with Dr. Buck 05/19 Patient got a new nephrostomy tube I believe on the left today, and our current plan is to continue to treat the Clostridium difficile with the oral vancomycin and I have change the Flagyl to IV Flagyl. We shall follow Dr. Ryan a suggestion that a more definitive treatment for her prolapse will be given by her surgeon, Dr. Lizarraga, probably practices a lot at [facility]. 05/20 Plan is to continue present care I think I will try to get a Dr. Bennett consult on the infection 05/21 I have asked the nurses to consult Dr. Bennett because of her having trouble getting her urine cleared up and the right kidney believe has a stone which may be retaining some impacting bacteria; the second bug culture not associated amoxicillin, and since she has been on Rocephin for 5 days I would I think we have the first were knocked out. Amoxicillin 500 3 times a day by mouth to try to take care of the second pathogen we've isolated and cultured from her urine. She remains on plenty of pain meds and did not ask me for any problems in the room. Hopefully wean discharge her in another day or 2. I know Dr. Villanueva wanted to watch that the prolapse reduced or 2 to see if it which drink any with the procedure she used. Consult place with Dr Donald sol as pt being followed by a different urologist. 05/22 About the same. Appetite decreased; not very hungry. Nausea at times. Passing liquid stool out ostomy. Feels tired and weak, not up much. Still with ab pain, but medications helping. Breathing well. Notes some urinary incontinence. Will d/c IVF as taking po. Change metronidazole to po for better treatment of C diff. Encourage ambulation. Start potassium 10mEg TID with meals as potassium decreasing. Restart Xarelto. Recheck CMP in am due to medication use. Repeat CBC in am due to UTI and C diff. 05/23 Doing fair. Still with ab pain and nausea. Reports decreased oral drive. Passing stool. Breathing well. Up some. No f/c. Nursing note O2 sats decrease when sleeping. Continue oral metronidazole for treatment of C diff. D/C Amoxil after tomorrow last dose - should provide sufficient treatment of UTI and wish to stop antibiotics as soon as possible due to C diff. Encourage oral intake. Discussed about Boost/Ensure in outpatient setting. Recommend yogurt to help with bowel regularity. Encourage ambulation. Recheck BMP in am due to medication use. Repeat CBC in am due to UTI and C diff. 05/24 Doing fair. Oral intake improving-taking more soups in. Not really eating much solids. No emesis. Chronic pain stable. When up to bathroom, felt more wheezy to lungs and SOA. Not with cough (except if takes deep breath). O2 sats will decrease when sleeping. BP running low today. No f/c. Will check CXR due to wheezing and hypoxia. Continue oral metronidazole for treatment of C diff. Was planning to D/C amoxicillin, but pt urostomy tube felt out and replace-will continue amoxicillin for coverage. Encourage oral intake. Discussed about Boost/Ensure in outpatient setting. Encourage ambulation. Recheck BMP and Ma in am due to medication use and recent hypokalemia. Repeat CBC in am due to UTI and C diff. Was considering discharge today, but with decreased BP and hypoxia do feel continued monitoring and treatment prudent. Hope for home in near future. 05/25 Doing better today. Oral intake increasing-trying to be cautious as she eats so as not to cause nausea/pain. Walking more. Breathing feeling okay-not SOA or congested. O2 sats decrease when resting - normal with ambulation. Suspect hypoventilation from pain medicines. Encouraged deep breathing exercises. Continue oral metronidazole for treatment of C diff. D/C amoxicillin after today's last dose. Encourage oral intake. Discussed about Boost/Ensure in outpatient setting. Encourage IS and deep breathing for pulmonary toilet. Encourage ambulation. Recheck BMP in am due to medication use and recent hypokalemia. Repeat CBC in am due to UTI and C diff. Anticipate d/c to home tomorrow. 05/26 Doing well today. Oral intake stable-no emesis. Pain controlled. Breathing well- not SOA or congested. Using IR routinely. No pain with breathing. Strength increasing. No f/c. Not having chest pain. Lab stable - potassium normal. Will d/c to home - medically stable. Condition good. Continue oral metronidazole for another 10 days. Continue with Questran to help slow stools - decrease if stools too slow. Course on treatment for UTI completed. Encourage continued use of IS and deep breathing. Increase activities and walking. F/U with [facility] in 1 week - pt in process of moving and will establish new local primary provider. See orders for details. LUIS MANUEL HOUGH MD May 26, 2016 12:09
[2016-05-26] MEDS: CHOLESTYRAMINE LIGHT 4 G PACKET PO SCH (12:12)
[2016-05-26] MEDS: ONDANSETRON 4mg/2ml INJECTION IV PRN (12:12)
[2016-05-26] MEDS ORDERED: POTA10TA16 PO (12:22)
[2016-05-26] MEDS ORDERED: CHOL4PAC3 PO (12:22)
[2016-05-26] MEDS ORDERED: METR500T PO (12:22)
[2016-05-26] MEDS ORDERED: PROM6.25 PO (12:22)
[2016-05-26] MEDS ORDERED: RIVA20TA PO (13:00)
--- NOTE | 2016-05-26 16:45 | NUR ---
DISMISSAL PT DISMISSED TO HOME VIA WHEELCHAIR TO [employer] [facility] AT 1642. PT BELONGINGS PACKED, GO HOME INSTRUCTIONS GIVEN, SCRIPTS GIVEN TO PATIENT. IVL PULLED, PT DRESSED.
--- NOTE | 2016-05-28 12:42 | NUR ---
ATTEMPTED [facility] FOLLOW UP PHONE CALL #1, NO ANSWER, LEFT VOICE MESSAGE TO RETURN CALL TO CM.
--- NOTE | 2016-05-29 11:05 | NUR ---
CM CALL BACK FROM PT. SHE SAID SHE WILL SCHEDULE A DOCTORS' APPOINTMENT NEXT WEEK. SHE SAID SHE HAS NOT CHANGED HER DOCTORS TO LOCAL AREA YET. THIS WORKER WILL FOLLOW UP WITH RESOURCES FOR THIS. PT STATED HER OSTOMY SUPPLIES THROUGH [facility] WERE DELIVERED. SHE HAD NO FURTHER QUESTIONS/NEEDS.
--- NOTE | 2016-05-29 11:43 | DSF ---
Date of initial outpatient observation admission is 05/16/2016. ADMISSION DIAGNOSIS Urinary tract infection. DISCHARGE DIAGNOSIS Urinary tract infection with Klebsiella pneumoniae and Enterococcus faecalis. ASSOCIATED CONDITIONS AND COMPLICATIONS Nausea and vomiting. Hypokalemia (present on admission). Leukopenia. Clostridium difficile diarrhea. Chronic pain syndrome. Hypertension. Hypothyroidism. Anxiety/depression. GERD. Narcotic dependency. Tobacco dependency. History of DVT. Seasonal allergies. History of malignant neoplasm of colorectal region. CONSULTS Dr. Patel - Urology Dr. Abad - Surgery PROCEDURES 05/19/2016: Cystoscopy, left retrograde pyelogram, left ureteral stent change. CLINICAL RESUME Yvette Barrett is a 50-year-old female who presents to [facility] Emergency Room secondary to abdominal pain, nausea, vomiting and diarrhea. Symptoms have been going on for the past four days. She reports that on 05/12/2016 she started noticing abdominal pain with nausea - at that time she had vomiting with multiple bouts of diarrhea. Symptoms persisted for the next few days. She also reports dark brown specks in her emesis, occasional red specks, which she is concerned for blood. She does admit to a prior history of peptic ulcer disease, but denies any current symptoms. Her diarrhea is improved - she did not have any stools on day of presentation. However, she does have dysuria. She sees a urologist in [place] who she saw about 4-6 weeks ago. She denies any fevers, cough, congestion, chest pain or shortness of breath. She does report she is chronically cold. Due to her persistent nausea, vomiting and abdominal symptoms, she presents to emergency room for evaluation. There, she is afebrile with heart rate 78, respiratory rate 14. White count was decreased at 4.2. Urine shows evidence of infection. Potassium is quite decreased at 2.4. CT scan of abdomen and pelvis was obtained which was largely unremarkable. In emergency room she was started on Rocephin 1 g IV for urinary coverage. Dr. Buck was contacted and patient was initially placed in outpatient observation status at [facility] for further evaluation and treatment. For complete details of the hospital course, refer to the medical records. LABORATORY White blood count is 4.2 with hemoglobin 9.7, hematocrit 28.9, MCV 86.0 and platelets 350,000. 75% neutrophils are noted. Serum sodium is 144, potassium 2.4, chloride 115, CO2 20, BUN 14 with creatinine 1.5, GFR 37, blood glucose 113. Transaminases are unremarkable. Lipase is 31. TSH is 0.64. UA does reveal 1+ protein, 2+ blood, positive nitrite with 2+ leukocyte esterase and 50-200 WBC/HPF along with 3+ bacteria and trace yeast Initial urine culture did grow out Klebsiella pneumoniae along with Enterococcus faecalis; repeat urine culture did show Enterococcus faecalis. Stool for C. diff toxin is positive. HOSPITAL COURSE The patient was initially placed in outpatient observation at [facility] under the care of Dr. Buck. She was started on Rocephin 1 g IV daily for empiric antimicrobial coverage of urinary pathogens. IV fluids were initiated. She was given potassium boluses secondary to hypokalemia. Lab was monitored. Chronic pain medications were continued. Smoking cessation was encouraged. SCDs and Xarelto were utilized for DVT prophylaxis. She was made Full Code at time of presentation as per her request. By hospital day #1 she was still having significant pain and discomfort. She reports she takes "more than this pain medication at home." She denied nausea, vomiting and felt her stools were improving. She wished her diet to be advanced. Potassium had increased to 3.5. Urine culture was growing gram-negative jd. In light of her continued symptoms she was moved to inpatient status. We did place a urological consult and ultimately Dr. Patel did see the patient. She underwent the above-noted procedure on the which she tolerated well. We did consult with Dr. Abad regarding bleeding from stoma. He did not have any acute surgical recommendations. Stool did start to loosen during the hospitalization and on the she was found to be positive for C. diff. Contact precautions and oral metronidazole were initiated. Ultimately we did add oral vancomycin and change her metronidazole to IV. The urine culture did grow out Klebsiella and Enterococcus faecalis. Unfortunately, the Enterococcus was not going to respond to Rocephin. She was ultimately switched to amoxicillin for better coverage. Nausea and decreased appetite was quite an issue during the hospitalization but gradually she started to be able to eat more and more. We did see some hypoxia during the hospitalization and it was thought this was probably due to her pain medications. She did not desaturate when active but would tend to hypoventilate when at rest. Incentive spirometry was initiated and the patient was encouraged on deep breathing. Her hypokalemia did normalize and remained normal off of IV fluids. Her leukopenia did defervesce. Renal function did show improvement, with creatinine decreasing to 0.9 by time of discharge. Ultimately the patient felt strong enough for discharge to home. At time of discharge she was eating and drinking well. She was ambulating at baseline. Her vitals were stable and she was afebrile. She had completed course of antibiotics for urinary tract infection. Will continue with metronidazole in the outpatient setting for her C. diff. Additionally, she will use Questran b.i.d. to help slow stools. Narrative Disclaimer: Above narrative is a brief summary of the patient's hospitalization; for complete details of the hospital course, refer to the medical record. DISCHARGE CONDITION Stable/good. DIET Regular. ACTIVITIES As tolerated. MEDICATIONS Metronidazole 500 mg p.o. q.8h. x 10 days. Questran Light b.i.d. Potassium 10 mEq t.i.d. with meals. Phenergan elixir 6.25 mg p.o. q.4h. p.r.n. nausea. Xarelto 20 mg with supper. Clonazepam 0.5 mg b.i.d. p.r.n. anxiety. Duragesic patch 100 mcg/hour to skin every third day. Fluticasone 1 spray each nostril daily. Neurontin 300 mg b.i.d. Synthroid 0.075 mg a.c. breakfast. Omeprazole 20 mg daily. Percocet 5/325 one q.6h. p.r.n. pain. Zoloft 100 mg b.i.d. Trazodone 100 mg q.h.s. p.r.n. insomnia. FOLLOWUP The patient will follow up with [facility] in one week - She is in the process of relocating; was advised to establish primary care provider locally as soon as possible. The patient will continue to follow with her urologist for urological care. INSTRUCTIONS TO PATIENT The patient was instructed on her diagnosis and treatments provided. She received informed consent prior to above-noted urological intervention. We encouraged her on healthy well-rounded diet and activities. She will notify physician if she has temperature greater than 100.4 or develops intractable nausea or vomiting. Should other problems or need occur, she will be in contact with her primary provider. If symptoms become quite dire she can present to emergency room for acute evaluation. She voiced understanding of the above. Time spent with discharge greater than 35 minutes. KIMBERLY
== END 2016-05-26 16:42 | disposition home or self-care (01) | DRG 690 ==
LOC: ED 11:03 → EDHOLD 14:43 → MED 15:00 → OBSVTOIN 05-17 12:03
PROVIDERS: ATTEND Hospitalist
PROC: 0T778DZ Dilation of Left Ureter with Intraluminal Device, Via Natural or Artificial Opening Endoscopic (ICD-10-PCS; 2016-05-19)
PROC: BT1F1ZZ Fluoroscopy of Left Kidney, Ureter and Bladder using Low Osmolar Contrast (ICD-10-PCS; 2016-05-19)
PROC: 0TP98DZ Removal of Intraluminal Device from Ureter, Via Natural or Artificial Opening Endoscopic (ICD-10-PCS; principal; 2016-05-19 14:46)
DX: N39.0 Urinary tract infection, site not specified (principal); A04.7 Enterocolitis due to Clostridium difficile; K94.09 Other complications of colostomy; R11.2 Nausea with vomiting, unspecified; N13.30 Unspecified hydronephrosis; D72.819 Decreased white blood cell count, unspecified; E87.6 Hypokalemia; I10 Essential (primary) hypertension; F17.200 Nicotine dependence, unspecified, uncomplicated; B96.1 Klebsiella pneumoniae [K. pneumoniae] as the cause of diseases classified elsewhere; B95.2 Enterococcus as the cause of diseases classified elsewhere; G89.4 Chronic pain syndrome; E03.9 Hypothyroidism, unspecified; F32.9 Major depressive disorder, single episode, unspecified; F41.9 Anxiety disorder, unspecified; K21.9 Gastro-esophageal reflux disease without esophagitis; Z79.01 Long term (current) use of anticoagulants; Z86.718 Personal history of other venous thrombosis and embolism
CPT/HCPCS: 36000; 36415; 80048; 80053; 80069; 81001; 81025; 82330; 83690; 83735; 84443; 85007; 85025; 85027; 87077; 87086; 87186; 87507; 93005; 94664; 94761; 96361; 96365; 96366; 96375; 96376; 99218; 99406